=== PATIENT | female | born 1940 ===

== ENCOUNTER 2016-11-14 12:12 | Emergency (ER) | payer MEDICARE, OTHER ==
[2016-11-14 12:17] VITALS: RESP 18
--- NOTE | 2016-11-14 13:09 | RAD ---
PROCEDURE: Right Ankle Radiographs. HISTORY: Right ankle twisted yesterday COMPARISON: None available. FINDINGS: Ankle mortise is disrupted. Displaced comminuted fracture deformity of the distal fibula with intra-articular extension. Displaced acute fracture of the medial malleolus. Suspect posterior fracture of the distal tibia. Degenerative changes. Calcaneal enthesophyte. Soft tissue swelling. No evidence of radiopaque foreign body. IMPRESSION: Ankle mortise disruption with fractures of the medial and lateral malleoli. Question posterior malleolus fracture as well. Soft tissue swelling. No evidence of radiopaque foreign body.
--- NOTE | 2016-11-14 13:13 | C.PDOC ---
History Of Present Illness 76 year old patient, with a past medical history of hypertension and hypercholesterolemia, presents to the ED complaining of right ankle pain. Patient states she tripped and fell on her ankle. Patient denies fever, head injury, loss of consciousness, numbness, or weakness. Time Seen by Provider: 11/14/16 12:25 Chief Complaint (Nursing): Lower Extremity Problem/Injury History Per: Patient History/Exam Limitations: no limitations Onset/Duration Of Symptoms: Hrs (prior to arrival) Current Symptoms Are (Timing): Still Present Severity: Moderate Pain Scale Rating Of: 4 Recent travel outside of the [place]: No - Ankle/Foot Description Of Injury: Fell Currently Unable To: Bear Weight Past Medical History Reviewed: Historical Data, Nursing Documentation, Vital Signs Vital Signs: Last Vital Signs Temp 97.9 F 11/14/16 12:15 Pulse 79 11/14/16 12:15 Resp 18 11/14/16 12:15 BP 136/75 11/14/16 12:15 Pulse Ox 96 11/14/16 13:37 - Medical History PMH: HTN, Hypercholesterolemia Family History: States: Unknown Family Hx - Social History Hx Alcohol Use: Yes Hx Substance Use: No - Immunization History Hx Tetanus Toxoid Vaccination: No Hx Influenza Vaccination: Yes Hx Pneumococcal Vaccination: No Review Of Systems Except As Marked, All Systems Reviewed And Found Negative. Constitutional: Negative for: Fever Musculoskeletal: Positive for: Other (right ankle pain) Neurological: Negative for: Weakness, Numbness Physical Exam - Physical Exam Appears: Non-toxic, No Acute Distress Skin: Warm, Dry Head: Atraumatic, Normacephalic Neck: Normal ROM, Supple Chest: Symmetrical Cardiovascular: Rhythm Regular Respiratory: No Accessory Muscle Use Back: Normal Inspection Extremity: Normal ROM, No Calf Tenderness, Capillary Refill (<2 seconds), Swelling, Other (right lower leg swelling and ecchymosis; right thigh ecchymosis ) Pulses: Left Dorsalis Pedis: Normal, Right Dorsalis Pedis: Normal Neurological/Psych: Oriented x3, Normal Speech, Normal Cognition, Normal Motor, Normal Sensation ED Course And Treatment O2 Sat by Pulse Oximetry: 96 (RA) Pulse Ox Interpretation: Normal - Other Rad right ankle X-Ray: Read By Radiologist (Opal Sanchez) Interpretation: FINDINGS: Ankle mortise is disrupted. Displaced comminuted fracture deformity of the distal fibula with intra-articular extension. Displaced acute fracture of the medial malleolus. Suspect posterior fracture of the distal tibia. Degenerative changes. Calcaneal enthesophyte. Soft tissue swelling. No evidence of radiopaque foreign body. IMPRESSION: Ankle mortise disruption with fractures of the medial and lateral malleoli. Question posterior malleolus fracture as well. Soft tissue swelling. No evidence of radiopaque foreign body. Progress Note: Plan: -Motrin. -Right ankle x-ray Reevaluation Time: 13:15 Reassessment Condition: Improved (d/w dr. Granados, Reena- Ortho Sanitation Superintendent- ok to apply splint and crutch walking, call in AM for appt) Disposition Doctor Will See Patient In The: Office Counseled Patient/Family Regarding: Studies Performed, Diagnosis - Disposition Disposition: HOME/ ROUTINE Disposition Time: 14:10 Condition: GOOD - Clinical Impression Clinical Impression: Closed bimalleolar fracture - Scribe Statement The provider has reviewed the documentation as recorded by the Pily Renner Provider Attestation: All medical record entries made by the Pily were at my direction and personally dictated by me. I have reviewed the chart and agree that the record accurately reflects my personal performance of the history, physical exam, medical decision making, and the department course for this patient. I have also personally directed, reviewed, and agree with the discharge instructions and disposition.
[2016-11-14 14:46] VITALS: BP 129/78; PULSE 78; TEMP 98.2; O2SAT 98
== END 2016-11-14 14:50 | disposition home or self-care (01) ==
LOC: C.ER 12:12 → SUPCPDRO 12:12 → C.ER 14:50
DX: S82.841A Displaced bimalleolar fracture of right lower leg, initial encounter for closed fracture (principal); W01.0XXA Fall on same level from slipping, tripping and stumbling without subsequent striking against object, initial encounter

== ENCOUNTER 2017-01-26 09:42 | Inpatient (IN) | payer MEDICARE, OTHER ==
[2017-01-26 09:43] VITALS: BMI 24.1
[2017-01-26] MEDS ORDERED: Sodium Chloride 0.9% 1,000 ML IV ONE (11:01)
[2017-01-26] MEDS ORDERED: Piperacillin/Tazobact 3.375 gm 100 ML IV STA (11:02)
[2017-01-26] MEDS ORDERED: Sodium Chloride 0.9% 1,000 ML ONE (11:08)
[2017-01-26] MEDS ORDERED: Piperacillin/Tazobact 3.375 gm 0 ML IVPB ONE (11:08)
--- NOTE | 2017-01-26 11:12 | C.PDOC ---
Time Seen by Provider: 01/26/17 10:46 Chief Complaint (Nursing): Abnormal Skin Integrity History Per: Patient History/Exam Limitations: no limitations Onset/Duration Of Symptoms: Days Current Symptoms Are (Timing): Still Present Location Of Injury: Right: Ankle Past Medical History Reviewed: Historical Data, Nursing Documentation, Vital Signs Vital Signs: Last Vital Signs Temp 97.9 F 01/26/17 09:54 Pulse 66 01/26/17 09:54 Resp 18 01/26/17 09:54 BP 147/70 01/26/17 09:54 Pulse Ox 100 01/26/17 11:15 - Medical History PMH: Arthritis, HTN, Hypercholesterolemia Denies: Chronic Kidney Disease - [facility] Procedures INTRODUCE LOCAL ANESTH IN PERIPH NRV, PLEXI, PERC (12/01/16) INTRODUCTION OF SERUM/TOX/VACCINE INTO MUSCLE, PERC APPROACH (12/01/16) REPOSITION RIGHT FIBULA WITH INT FIX, OPEN APPROACH (12/01/16) REPOSITION RIGHT TIBIA WITH INT FIX, OPEN APPROACH (12/01/16) Family History: States: Unknown Family Hx - Social History Hx Alcohol Use: Yes Hx Substance Use: No - Immunization History Hx Tetanus Toxoid Vaccination: No Hx Influenza Vaccination: Yes Hx Pneumococcal Vaccination: No Review Of Systems Except As Marked, All Systems Reviewed And Found Negative. Constitutional: Negative for: Fever, Chills Gastrointestinal: Negative for: Nausea, Vomiting, Diarrhea Musculoskeletal: Positive for: Foot Pain Neurological: Negative for: Numbness Physical Exam - Physical Exam Appears: Non-toxic, No Acute Distress Skin: Normal Color, Warm Head: Atraumatic, Normacephalic Extremity: Capillary Refill (<2 seconds), No Deformity, Swelling (Lower extremities), Other (1cm ulcer on right ankle with purulent and drainage) Pulses: Left Dorsalis Pedis: Normal, Right Dorsalis Pedis: Normal Neurological/Psych: Oriented x3, Normal Motor, Normal Sensation, Normal Reflexes ED Course And Treatment O2 Sat by Pulse Oximetry: 100 (RA) Pulse Ox Interpretation: Normal Medical Decision Making Medical Decision Making: Plan: Labs, Antibiotics and Medication Patient will be on observation for possible admission - PA / FISH GRADER / Resident Statement MD/DO has reviewed & agrees with the documentation as recorded. - Scribe Statement The provider has reviewed the documentation as recorded by the Zachibpretty Allison All medical record entries made by the Scribe were at my direction and personally dictated by me. I have reviewed the chart and agree that the record accurately reflects my personal performance of the history, physical exam, medical decision making, and the department course for this patient. I have also personally directed, reviewed, and agree with the discharge instructions and disposition.
[2017-01-26 11:24] LABS: BASO # 0.1 K/uL (0.0-0.2); BASO % 0.6 % (0.0-2.0); EOS # 0.2 K/uL (0.0-0.7); EOS % 1.9 % (0.0-4.0); HEMOGLOBIN 12.2 g/dL (11.0-16.0); LYMPH # 1.8 K/uL (1.0-4.3); LYMPH % 19.4 % (20.0-40.0); MEAN CELL VOLUME 87.3 fL (81.0-99.0); MEAN CORPUSCULAR HEMOGLOBIN 28.2 pg (27.0-31.0); MEAN CORPUSCULAR HGB CONC 32.3 g/dL (33.0-37.0); MEAN PLATELET VOLUME 8.5 fL (7.2-11.7); MONO # 0.6 K/uL (0.0-0.8); MONO % 6.8 % (0.0-10.0); NEUT # 6.5 K/uL (1.8-7.0); NEUT % 71.3 % (50.0-75.0); RBC 4.32 Mil/uL (3.80-5.20); RED CELL DISTRIBUTION WIDTH 14.6 % (11.5-14.5); WHITE BLOOD COUNT 9.1 K/uL (4.8-10.8)
--- NOTE | 2017-01-26 11:25 | C.PDOC ---
History Of Present Illness 77 y/o female with Hx of DM presents to ED with complaints of an infected ulcer on right medial ankle. Patient states she had an ankle surgery on 11/30/16 at [facility]. Patient denies numbness, fever, chills, n/v/d or any other complaints at this time Time Seen by Provider: 01/26/17 10:46 Chief Complaint (Nursing): Abnormal Skin Integrity History Per: Patient History/Exam Limitations: no limitations Onset/Duration Of Symptoms: Days Location Of Injury: Right: Ankle Past Medical History Reviewed: Historical Data, Nursing Documentation, Vital Signs Vital Signs: Last Vital Signs Temp 97.9 F 01/26/17 09:54 Pulse 66 01/26/17 09:54 Resp 18 01/26/17 09:54 BP 147/70 01/26/17 09:54 Pulse Ox 100 01/26/17 11:29 - Medical History PMH: Arthritis, HTN, Hypercholesterolemia - [facility] Procedures INTRODUCE LOCAL ANESTH IN PERIPH NRV, PLEXI, PERC (12/01/16) INTRODUCTION OF SERUM/TOX/VACCINE INTO MUSCLE, PERC APPROACH (12/01/16) REPOSITION RIGHT FIBULA WITH INT FIX, OPEN APPROACH (12/01/16) REPOSITION RIGHT TIBIA WITH INT FIX, OPEN APPROACH (12/01/16) Family History: States: Unknown Family Hx - Social History Hx Alcohol Use: Yes Hx Substance Use: No - Immunization History Hx Tetanus Toxoid Vaccination: No Hx Influenza Vaccination: Yes Hx Pneumococcal Vaccination: No Review Of Systems Except As Marked, All Systems Reviewed And Found Negative. Constitutional: Negative for: Fever, Chills Gastrointestinal: Negative for: Nausea, Vomiting, Diarrhea Musculoskeletal: Positive for: Foot Pain Skin: Negative for: Rash Neurological: Negative for: Numbness Physical Exam - Physical Exam Appears: Non-toxic, No Acute Distress Skin: Normal Color, Warm Head: Atraumatic, Normacephalic Extremity: Capillary Refill (<2 seconds), No Deformity, Swelling (Lower extrimities b/l), Other (1cm circular ulcer with purulent and drainage on right ankle) Pulses: Left Dorsalis Pedis: Normal, Right Dorsalis Pedis: Normal Neurological/Psych: Oriented x3, Normal Motor, Normal Sensation, Normal Reflexes ED Course And Treatment - Laboratory Results Result Diagrams: 01/26/17 11:18 01/26/17 11:18 O2 Sat by Pulse Oximetry: 100 (RA) Pulse Ox Interpretation: Normal Progress Note: Treated with IVF NSS. Zosyn and Vanco Reassessment Condition: Unchanged - Physician Consult Information Physician Contacted: Celso Bonilla Outcome Of Conversation: admit Medical Decision Making Medical Decision Making: Plan: Labs, Antibiotics and Medications Patient will be on observation for possible admission Disposition Discussed With Dr.: Celso Bonilla Doctor Will See Patient In The: Hospital - Disposition Disposition: HOSPITALIZED Disposition Time: 13:15 Condition: STABLE - POA Present On Arrival: None - Clinical Impression Clinical Impression: Cellulitis, Ankle fracture, bimalleolar, closed - PA / SOLE CONFORMING MACHINE OPERATOR / Resident Statement MD/DO has reviewed & agrees with the documentation as recorded. - Scribe Statement The provider has reviewed the documentation as recorded by the Scribpretty Allison All medical record entries made by the Zachibpretty were at my direction and personally dictated by me. I have reviewed the chart and agree that the record accurately reflects my personal performance of the history, physical exam, medical decision making, and the department course for this patient. I have also personally directed, reviewed, and agree with the discharge instructions and disposition. Decision To Admit - Pt Status Changed To: Hospital Disposition Of: Inpatient - Admit Certification Admit to Inpatient:: After my assessment, the patient will require hospitalization for at least two midnights. This is because of the severity of symptoms shown, intensity of services needed, and/or the medical risk in this patient being treated as an outpatient. - InPatient: Physician Admission Certification: I certify that this patient requires 2 or more midnights of care for the following reason:: cellulitis. DM. S/P ORIF ankle fracture - . Bed Request Type: Regular Admitting Physician: Celso Bonilla Patient Diagnosis: Cellulitis
[2017-01-26 11:34] LABS: ALBUMIN 3.7 g/dL (3.5-5.0)
[2017-01-26 11:36] LABS: GFR AFRICAN-AMERICAN > 60; GFR NON-AFRICAN AMERICAN > 60
[2017-01-26 11:37] LABS: ALB/GLOB RATIO 1.1 (1.0-2.1); ALT/SGPT 21 U/L (9-52); AST/SGOT 17 U/L (14-36); BLOOD UREA NITROGEN 19 mg/dL (7-17); CALCIUM 9.1 mg/dl (8.6-10.4)
--- NOTE | 2017-01-26 12:57 | RAD ---
PROCEDURE: Right Ankle Radiographs. HISTORY: pain COMPARISON: 12/23/2016 FINDINGS: BONES: Status post ORIF distal fibular fracture and medial malleolar fracture. No new fracture. Hardware appears intact. No periosteal reaction or osseous erosion appreciated deep to the medial cutaneous ulcer. JOINTS: Normal. No osteoarthritis. Ankle mortise maintained. Talar dome intact SOFT TISSUES: Medial cutaneous ulcer identified at the level of the medial malleolus. OTHER FINDINGS: None. IMPRESSION: Medial cutaneous ulcer. ORIF distal fibular fracture and medial malleolar fracture. No plain radiographic evidence of osteomyelitis.
[2017-01-26] MEDS ORDERED: Vancomycin 1 GM 1 GM/250 ML BAG IV STA (13:49)
[2017-01-26 13:52] LABS: SQUAMOUS EPITHIAL 29 /hpf (0-5); URINE BILIRUBIN NEGATIVE (NEGATIVE); URINE BLOOD 1+ (NEGATIVE); URINE CLARITY Hazy (Clear); URINE COLOR Yellow (YELLOW); URINE GLUCOSE (UA) NORMAL (Normal); URINE LEUKOCYTE ESTERASE 3+ Leu/uL (Negative); URINE NITRATE NEGATIVE (NEGATIVE); URINE PROTEIN NEGATIVE (NEGATIVE); URINE UROBILINOGEN NORMAL mg/dL (0.2-1.0)
[2017-01-26] MEDS ORDERED: Vancomycin 1 GM 1 GM/250 ML BAG IVPB ONE (13:58)
[2017-01-26] MEDS ORDERED: Oxycodone/Acetaminophen 5/325 mg Tab PO PRN (16:08)
[2017-01-26] MEDS: (Novolog) Insulin Aspart, Recombinant 100 u/ml 10 ml vial SC SCH ×2 (16:27→21:46)
--- NOTE | 2017-01-26 16:33 | CP.PCM.CON ---
History of Present Illness - History of Present Illness History of Present Illness: INFECTIOUS DISEASE CONSULT; HPI: 78-year-old female with history of diabetes mellitus, hypertension, hypercholesterolemia, arthritis who is admitted via the ER with complaints off and infected also draining purulent drainage on the right medial ankle. Patient states she had ankle surgery on November 30, 2016 at [facility]. She states she fell and had a fracture for which she underwent open reduction internal fixation. The wound has been draining for more than a week. As per patient she is taking some antibiotic but does not remember the name. Patient states it has not been working and her ankle looks worse with swelling and redness increasing. Patient denies any fever or chills, nausea vomiting. Patient also denies any abdominal pain, diarrhea or constipation. Infectious disease consultation requested by DR ANTONIO HSIEH FOR INFECTED POSTOPERATIVE WOUND RIGHT ANKLE WITH CELLULITIS AND DRAINING ULCER. ALLERGY; NKA PMH: Arthritis, HTN, Hypercholesterolemia - [facility] Procedures INTRODUCE LOCAL ANESTH IN PERIPH NRV, PLEXI, PERC (12/01/16) INTRODUCTION OF SERUM/TOX/VACCINE INTO MUSCLE, PERC APPROACH (12/01/16) REPOSITION RIGHT FIBULA WITH INT FIX, OPEN APPROACH (12/01/16) REPOSITION RIGHT TIBIA WITH INT FIX, OPEN APPROACH (12/01/16) Family History: States: Unknown Family Hx - Social History Hx Alcohol Use: USED TO DRINK ALCOHOL BUT QUIT SEVERAL YEARS AGO. Hx Substance Use: No SMOKING; QUIT SEVERAL YEARS AGO. - Immunization History Hx Tetanus Toxoid Vaccination: No Hx Influenza Vaccination: Yes Hx Pneumococcal Vaccination: No Review of Systems - Constitutional Constitutional: absent: Chills, Fever - EENT Eyes: absent: Change in Vision, Floaters, Other Ears: absent: Ear Pain, Dizziness Nose/Mouth/Throat: absent: Odynophagia, Sore Throat - Cardiovascular Cardiovascular: absent: Chest Pain, Dyspnea - Respiratory Respiratory: absent: Cough, Dyspnea, Hemoptysis, Wheezing - Gastrointestinal Gastrointestinal: Vomiting. absent: Abdominal Pain, Constipation, Diarrhea, Nausea - Genitourinary Genitourinary: absent: Dysuria, Freq UTI - Musculoskeletal Musculoskeletal: Arthralgias - Neurological Neurological: absent: Dizziness - Hematologic/Lymphatic Hematologic: As Per HPI. absent: Lymphadenopathy Past Patient History - Infectious Disease Hx of Infectious Diseases: None - Past Medical History & Family History Past Medical History?: Yes - Past Social History Smoking Status: Never Smoked - CARDIAC Hx Hypercholesterolemia: Yes Hx Hypertension: Yes - PULMONARY Hx Respiratory Disorders: No - NEUROLOGICAL Hx Neurological Disorder: No - HEENT Hx HEENT Problems: No - RENAL Hx Chronic Kidney Disease: No - ENDOCRINE/METABOLIC Hx Endocrine Disorders: No - HEMATOLOGICAL/ONCOLOGICAL Hx Blood Disorders: Yes Hx Cancer: Yes (BREAST) - INTEGUMENTARY Hx Dermatological Problems: No - MUSCULOSKELETAL/RHEUMATOLOGICAL Hx Arthritis: Yes - GASTROINTESTINAL Hx Gastrointestinal Disorders: No - GENITOURINARY/GYNECOLOGICAL Hx Genitourinary Disorders: No - PSYCHIATRIC Hx Substance Use: No - SURGICAL HISTORY Hx Surgeries: Yes Hx Section: Yes Hx Mastectomy: Yes (LEFT) - ANESTHESIA Hx Anesthesia: No Meds Allergies/Adverse Reactions: Allergies Allergy/AdvReac Type Severity Reaction Status Date / Time No Known Allergies Allergy Verified 11/14/16 12:17 - Medications Medications: Current Medications Amlodipine Besylate (Norvasc) 5 mg PO DAILY [facility] Celecoxib (Celebrex) 200 mg PO DAILY [facility] Docusate Sodium (Colace) 100 mg PO BID [facility] Donepezil HCl (Aricept) 5 mg PO HS [facility] Enoxaparin Sodium (Lovenox) 40 mg SC DAILY [facility] Famotidine (Pepcid) 40 mg PO DAILY [facility] Vancomycin HCl 1 gm/ Sodium (Chloride) 250 mls @ 166.7 mls/hr IVPB Q24H [facility] Insulin Aspart (Novolog) 0 unit SC ACHS [facility] PRN Reason: Protocol Last Admin: 01/26/17 16:27 Dose: Not Given Metformin HCl (Glucophage) 500 mg PO BID [facility] Oxycodone/Acetaminophen (Percocet 5/325 Mg Tab) 1 tab PO Q6 PRN PRN Reason: Pain, moderate (4-7) Stop: 01/29/17 16:09 Rosuvastatin Calcium (Crestor) 20 mg PO HS [facility] Sitagliptin Phosphate (Januvia) 100 mg PO DAILY [facility] Physical Exam - Constitutional Appears: No Acute Distress - Head Exam Head Exam: NORMAL INSPECTION - Eye Exam Eye Exam: EOMI, PERRL. absent: Scleral icterus - ENT Exam ENT Exam: Normal Oropharynx - Neck Exam Neck exam: Positive for: Normal Inspection - Respiratory Exam Respiratory Exam: Clear to Auscultation Bilateral, NORMAL BREATHING PATTERN - Cardiovascular Exam Cardiovascular Exam: REGULAR RHYTHM, +S1, +S2. absent: Systolic Murmur - GI/Abdominal Exam GI & Abdominal Exam: Normal Bowel Sounds, Soft. absent: Organomegaly, Tenderness - Extremities Exam Extremities exam: Positive for: pedal edema, tenderness, pedal pulses present ( RIGHT ANKLE CELLULITIS WITH AN ULCER 1 CM WITH A PURULENT DRAINAGE AT THE BASE OF THE ULCER ON THE MEDIAL ASPECT OF THE RIGHT ANKLE. fOOT APPEARS TO BE WARM AND TENDER TO TOUCH). Negative for: calf tenderness - Back Exam Back exam: absent: CVA tenderness (L) (B/L NEPHROSTOMY TUBES IN PLACE. ALSO DRAINAGE NOTED AT THEEXIT SITES OF THE NEPHROSTOMY TUBES.) - Neurological Exam Neurological exam: Alert, Oriented x3 - Psychiatric Exam Psychiatric exam: Normal Mood - Skin Skin Exam: Normal Color, Warm Results - Vital Signs Recent Vital Signs: Last Vital Signs Temp 98.9 F 01/26/17 13:50 Pulse 65 01/26/17 13:50 Resp 14 01/26/17 13:50 BP 127/69 01/26/17 13:50 Pulse Ox 96 01/26/17 13:50 - Labs Result Diagrams: 01/26/17 11:18 01/26/17 11:18 Labs: Laboratory Results - last 24 hr 01/26/17 01/26/17 13:18 16:26 POC Glucose (mg/dL) 127 H Urine Color Yellow Urine Clarity Hazy Urine pH 5.0 Ur Specific [place] 1.012 Urine Protein Negative Urine Glucose (UA) Normal Urine Ketones Negative Urine Blood 1+ H Urine Nitrate Negative Urine Bilirubin Negative Urine Urobilinogen Normal Ur Leukocyte Esterase 3+ H Urine WBC (Auto) 82 H Urine RBC (Auto) 4 H Ur Squamous Epith Cells 29 H - Imaging and Cardiology X-RAY RIGHT ANKLE Status: Report reviewed by me (medial cutaneous ulcer. ORIF distal fibular fracture and medial malleolus fracture. Negative for osteomyelitis.) Assessment & Plan (1) Cellulitis Status: Acute (2) Ankle fracture, bimalleolar, closed Status: Acute (3) Diabetes mellitus type 2 in nonobese Status: Acute (4) Hypertension Status: Acute - Assessment and Plan (Free Text) Plan: PLAN; PANCULTURES WOUND CULTURES RIGHT ANKLE ULCER. ESR. CRP. CONTINUE iv ZOSYN 3.375 EVERY 8 HOURLY 01/26/17. CONTINUE iv VANCOMYCIN 1 G EVERY 24 HOURLY. 01/26/17. VANCO TROUGH LEVEL ON THE FOURTH DOSE TO MAINTAIN LEVELS BETWEEN 10 AND 20. MRSA SCREEN. MONITOR RENAL FUNCTION CLOSELY. ORTHO EVALUATION. LOCAL WOUND CARE. CASE DISCUSSED WITH THE STAFF WILL FOLLOW PATIENT ALONG WITH YOU.
[2017-01-26] MEDS ORDERED: Piperacillin/Tazobact 3.375 gm 100 ML IVPB ONE (19:36)
[2017-01-26] MEDS: Piperacill/Tazo 3.375gm in Dex 3.375 GM/50 ML BAG IVPB SCH (19:40)
--- NOTE | 2017-01-26 21:25 | CP.PCM.HP ---
History of Present Illness - History of Present Illness History of Present Illness: Cheif complain: right ankle pain, post op wound infection HPI: 78-year-old female with history of diabetes mellitus, hypertension, hypercholesterolemia, arthritis who is admitted via the ER with complaints off and infected also draining purulent drainage on the right medial ankle. Patient states she had ankle surgery on November 30, 2016 at [facility]. She states she fell and had a fracture for which she underwent open reduction internal fixation. The wound has been draining for more than a week. As per patient she is taking some antibiotic but does not remember the name. Patient states it has not been working and her ankle looks worse with swelling and redness increasing. Patient denies any fever or chills, nausea vomiting. Patient also denies any abdominal pain, diarrhea or constipation. Present on Admission - Present on Admission Any Indicators Present on Admission: Yes History of DVT/PE: No History of Uncontrolled Diabetes: No Review of Systems - Review of Systems Systems not reviewed;Unavailable: Acuity of Condition - Constitutional Constitutional: Fatigue, Lethargy - EENT Eyes: absent: As Per HPI, Blind Spots, Blurred Vision, Change in Vision, Decreased Night Vision, Diplopia, Discharge, Dry Eye, Exophthalmos, Floaters, Irritation, Itchy Eyes, Loss of Peripheral Vision, Pain, Photophobia, Requires Corrective Lenses, Sees Flashes, Spots in Vision, Tunnel Vision, Other Visual Disturbances, Loss of Vision, Other Ears: absent: As Per HPI, Decreased Hearing, Ear Discharge, Ear Pain, Tinnitus, Abnormal Hearing, Disequilibrium, Dizziness, Other Nose/Mouth/Throat: absent: As Per HPI, Epistaxis, Nasal Congestion, Nasal Discharge, Nasal Obstruction, Nasal Trauma, Nose Pain, Post Nasal Drip, Sinus Pain, Sinus Pressure, Bleeding Gums, Change in Voice, Dental Pain, Dry Mouth, Dysphagia, Halitosis, Hoarsness, Lip Swelling, Mouth Lesions, Mouth Pain, Odynophagia, Sore Throat, Throat Swelling, Tongue Swelling, Facial Pain, Neck Pain, Neck Mass, Other - Cardiovascular Cardiovascular: absent: As Per HPI, Acrocyanosis, Chest Pain, Chest Pain at Rest , Chest Pain with Activity, Claudication, Diaphoresis, Dyspnea, Dyspnea on Exertion, Edema, Irregular Heart Rhythm, Pain Radiating to Arm/Neck/Jaw, Leg Edema, Leg Ulcers, Lightheadedness, Orthopnea, Palpitations, Paroxysmal Nocturnal Dyspnea, Pedal Edema, Radiating Pain, Rapid Heart Rate, Slow Heart Rate, Syncope, Other - Respiratory Respiratory: absent: As Per HPI, Cough, Dyspnea, Hemoptysis, Dyspnea on Exertion , Wheezing, Snoring, Stridor, Pain on Inspiration, Chest Congestion, Excessive Mucous Production, Change in Mucous Color, Pain with Coughing, Other - Gastrointestinal Gastrointestinal: absent: As Per HPI, Abdominal Pain, Belching, Bloating, Change in Bowel Habits, Change in Stool Character, Coffee Ground Emesis, Constipation, Cramping, Diarrhea, Dyspepsia, Dysphagia, Early Satiety, Excessive Flatus, Fecal Incontinence, Heartburn, Hematemesis, Hematochezia, Loose Stools, Melena, Nausea, Odynophagia, Temesmus, Vomiting, Other - Genitourinary Genitourinary: absent: As Per HPI, Change in Urinary Stream, Difficulty Urinating, Dysuria, Flank Pain, Hematuria, Pyuria, Nocturia, Urinary Incontinence, Urinary Frequency, Urinary Hesitance, Urinary Urgency, Voiding Freq/Small Amts, Freq UTI, Hx Renal/Bladder Calculi, Hx /Renal Surgery, Bladder Distension, Other - Musculoskeletal Musculoskeletal: Joint Swelling, Muscle Weakness, Myalgias Past Patient History - Infectious Disease Hx of Infectious Diseases: None - Past Medical History & Family History Past Medical History?: Yes - Past Social History Smoking Status: Never Smoked - CARDIAC Hx Hypercholesterolemia: Yes Hx Hypertension: Yes - PULMONARY Hx Respiratory Disorders: No - NEUROLOGICAL Hx Neurological Disorder: No - HEENT Hx HEENT Problems: No - RENAL Hx Chronic Kidney Disease: No - ENDOCRINE/METABOLIC Hx Endocrine Disorders: No - HEMATOLOGICAL/ONCOLOGICAL Hx Blood Disorders: Yes Hx Cancer: Yes (BREAST) - INTEGUMENTARY Hx Dermatological Problems: No - MUSCULOSKELETAL/RHEUMATOLOGICAL Hx Arthritis: Yes - GASTROINTESTINAL Hx Gastrointestinal Disorders: No - GENITOURINARY/GYNECOLOGICAL Hx Genitourinary Disorders: No - PSYCHIATRIC Hx Substance Use: No - SURGICAL HISTORY Hx Surgeries: Yes Hx Section: Yes Hx Mastectomy: Yes (LEFT) - ANESTHESIA Hx Anesthesia: No Meds Allergies/Adverse Reactions: Allergies Allergy/AdvReac Type Severity Reaction Status Date / Time No Known Allergies Allergy Verified 11/14/16 12:17 Physical Exam - Constitutional Appears: No Acute Distress - Head Exam Head Exam: ATRAUMATIC, NORMAL INSPECTION, NORMOCEPHALIC - Eye Exam Eye Exam: EOMI, Normal appearance, PERRL Pupil Exam: NORMAL ACCOMODATION, PERRL - ENT Exam ENT Exam: Mucous Membranes Moist, Normal Exam - Neck Exam Neck exam: Positive for: Normal Inspection - Respiratory Exam Respiratory Exam: Clear to Auscultation Bilateral, NORMAL BREATHING PATTERN - Cardiovascular Exam Cardiovascular Exam: REGULAR RHYTHM - GI/Abdominal Exam GI & Abdominal Exam: Normal Bowel Sounds, Soft. absent: Tenderness - Rectal Exam Rectal Exam: Deferred - Extremities Exam Extremities exam: Positive for: pedal edema, pedal pulses present Additional comments: RIGHT ANKLE CELLULITIS WITH AN ULCER 1 CM WITH A PURULENT DRAINAGE AT THE BASE OF THE ULCER ON THE MEDIAL ASPECT OF THE RIGHT ANKLE. fOOT APPEARS TO BE WARM AND TENDER TO TOUCH). Negative for: calf tenderness - - Back Exam Additional comments: absent: CVA tenderness (L) (B/L NEPHROSTOMY TUBES IN PLACE. ALSO DRAINAGE NOTED AT THEEXIT SITES OF THE NEPHROSTOMY TUBES.) - Neurological Exam Neurological exam: Alert, CN II-XII Intact, Normal Gait, Oriented x3, Reflexes Normal - Psychiatric Exam Psychiatric exam: Normal Affect, Normal Mood Results - Vital Signs Recent Vital Signs: Last Vital Signs Temp 98.3 F 01/26/17 21:06 Pulse 65 01/26/17 21:06 Resp 18 01/26/17 21:06 BP 127/67 01/26/17 21:06 Pulse Ox 95 01/26/17 21:06 - Labs Result Diagrams: 01/26/17 11:18 01/26/17 11:18 Labs: Laboratory Results - last 24 hr 01/26/17 01/26/17 13:18 16:26 POC Glucose (mg/dL) 127 H Urine Color Yellow Urine Clarity Hazy Urine pH 5.0 Ur Specific [place] 1.012 Urine Protein Negative Urine Glucose (UA) Normal Urine Ketones Negative Urine Blood 1+ H Urine Nitrate Negative Urine Bilirubin Negative Urine Urobilinogen Normal Ur Leukocyte Esterase 3+ H Urine WBC (Auto) 82 H Urine RBC (Auto) 4 H Ur Squamous Epith Cells 29 H Assessment & Plan (1) Cellulitis Status: Acute (2) Diabetes mellitus type 2 in nonobese Status: Acute (3) Hypertension Status: Acute
[2017-01-27 01:47] VITALS: RESP 20
[2017-01-27] MEDS: Piperacill/Tazo 3.375gm in Dex 3.375 GM/50 ML BAG IVPB SCH ×3 (03:29→18:44)
[2017-01-27] MEDS: (Novolog) Insulin Aspart, Recombinant 100 u/ml 10 ml vial SC SCH ×4 (07:30→21:31)
--- NOTE | 2017-01-27 08:21 | CP.PCM.CON ---
History of Present Illness - History of Present Illness History of Present Illness: Orthopedic consultation requested Dr. Granados for right ankle pain 77F 7 weeks s/p right ankle ORIF for bimalleolar fracture. She says she fell about a week ago, and has been having increased pain in her right ankle and redness. She has a boot at home but says she was told not to put any pressure on her ankle, but says she has been walking without the boot. She denies CP/SOB/ dizziness. Review of Systems - Review of Systems All systems: reviewed and no additional remarkable complaints except - Musculoskeletal Musculoskeletal: As Per HPI Past Patient History - Infectious Disease Hx of Infectious Diseases: None - Past Medical History & Family History Past Medical History?: Yes - Past Social History Smoking Status: Never Smoked - CARDIAC Hx Hypercholesterolemia: Yes Hx Hypertension: Yes - PULMONARY Hx Respiratory Disorders: No - NEUROLOGICAL Hx Neurological Disorder: No - HEENT Hx HEENT Problems: No - RENAL Hx Chronic Kidney Disease: No - ENDOCRINE/METABOLIC Hx Endocrine Disorders: No - HEMATOLOGICAL/ONCOLOGICAL Hx Blood Disorders: Yes Hx Cancer: Yes (BREAST) - INTEGUMENTARY Hx Dermatological Problems: No - MUSCULOSKELETAL/RHEUMATOLOGICAL Hx Arthritis: Yes - GASTROINTESTINAL Hx Gastrointestinal Disorders: No - GENITOURINARY/GYNECOLOGICAL Hx Genitourinary Disorders: No - PSYCHIATRIC Hx Substance Use: No - SURGICAL HISTORY Hx Surgeries: Yes Hx Section: Yes Hx Mastectomy: Yes (LEFT) - ANESTHESIA Hx Anesthesia: No Meds Allergies/Adverse Reactions: Allergies Allergy/AdvReac Type Severity Reaction Status Date / Time No Known Allergies Allergy Verified 11/14/16 12:17 - Medications Medications: Current Medications Amlodipine Besylate (Norvasc) 5 mg PO DAILY [facility] Celecoxib (Celebrex) 200 mg PO DAILY [facility] Docusate Sodium (Colace) 100 mg PO BID [facility] Last Admin: 01/26/17 18:44 Dose: 100 mg Donepezil HCl (Aricept) 5 mg PO HS [facility] Last Admin: 01/26/17 21:48 Dose: 5 mg Enoxaparin Sodium (Lovenox) 40 mg SC DAILY [facility] Famotidine (Pepcid) 40 mg PO DAILY [facility] Vancomycin HCl 1 gm/ Sodium (Chloride) 250 mls @ 166.7 mls/hr IVPB Q24H [facility] Piperacillin Sod/Tazobactam Sod (Zosyn 3.375 Gm Iv Premix) 3.375 gm in 50 mls @ 100 mls/hr IVPB Q8H [facility] Last Admin: 01/27/17 03:29 Dose: 100 mls/hr Insulin Aspart (Novolog) 0 unit SC ACHS [facility] PRN Reason: Protocol Last Admin: 01/26/17 21:46 Dose: Not Given Metformin HCl (Glucophage) 500 mg PO BID [facility] Last Admin: 01/26/17 18:44 Dose: 500 mg Oxycodone/Acetaminophen (Percocet 5/325 Mg Tab) 1 tab PO Q6 PRN PRN Reason: Pain, moderate (4-7) Stop: 01/29/17 16:09 Rosuvastatin Calcium (Crestor) 20 mg PO HS [facility] Last Admin: 01/26/17 21:48 Dose: 20 mg Sitagliptin Phosphate (Januvia) 100 mg PO DAILY [facility] Physical Exam - Extremities Exam Additional comments: Right ankle: lateral incision well healed. Dry. No erythema. Medial incision site with [id number] ulcer over medial malleolus. Doesn't appear full thickness, no bone or hardware exposed. dry. Erythema extending all around medial malleolus. Noted swelling to same, and swelling to foot. +DP/PT pulses, sensation intact, calves soft NT neg homans. Results - Vital Signs Recent Vital Signs: Last Vital Signs Temp 98.4 F 01/26/17 23:45 Pulse 74 01/26/17 23:45 Resp 20 01/26/17 23:45 BP 150/80 01/26/17 23:45 Pulse Ox 96 01/26/17 23:45 - Labs Result Diagrams: 01/26/17 11:18 01/26/17 11:18 Labs: Laboratory Results - last 24 hr 01/26/17 01/26/17 01/26/17 13:18 16:26 21:29 POC Glucose (mg/dL) 127 H 150 H Urine Color Yellow Urine Clarity Hazy Urine pH 5.0 Ur Specific [place] 1.012 Urine Protein Negative Urine Glucose (UA) Normal Urine Ketones Negative Urine Blood 1+ H Urine Nitrate Negative Urine Bilirubin Negative Urine Urobilinogen Normal Ur Leukocyte Esterase 3+ H Urine WBC (Auto) 82 H Urine RBC (Auto) 4 H Ur Squamous Epith Cells 29 H 01/27/17 06:54 POC Glucose (mg/dL) 134 H Urine Color Urine Clarity Urine pH Ur Specific [place] Urine Protein Urine Glucose (UA) Urine Ketones Urine Blood Urine Nitrate Urine Bilirubin Urine Urobilinogen Ur Leukocyte Esterase Urine WBC (Auto) Urine RBC (Auto) Ur Squamous Epith Cells Assessment & Plan (1) Right ankle swelling Assessment and Plan: 7 weeks s/p ORIF right ankle mode fx -medial ankle wound with cellulitis -wound care to evaluate wound -WBAT with boot, patient to obtain from home -antibiotics -imaging reviewed and discussed with Dr. Brand (partner of Dr. Granados),agrees with above -f/u xrays show interim callus formation to lateral mal fracture, and no change in position of fracture or hardware to medial or lateral malleoli. No evidence on xray of osteomyelitis. -will follow Addendum: case d/w wound care nurse. [facility] for now, plan [facility]. Dr. Brand updated. Status: Acute (2) Wound infection after surgery Assessment and Plan: see above Status: Acute Radiology Interpretation - Reel Cutter Reel Cutter:: Radiologist - Radiology Interpretation #2 Interpretation: atient Name / ID : ANGELIA POZO N / [id number] Exam Date : 01/26/2017 11:05:21 ( Approved ) Study Comment : Sex / Age : F / 77Y Creator : Tony Heller MD Dictator : Tony Heller MD Sport Internship : Computing Architect : Tony Heller MD Approver2 : Report Date : 01/26/2017 12:55:54 My Comment : PROCEDURE: Right Ankle Radiographs. HISTORY: pain COMPARISON: 12/23/2016 FINDINGS: BONES: Status post ORIF distal fibular fracture and medial malleolar fracture. No new fracture. Hardware appears intact. No periosteal reaction or osseous erosion appreciated deep to the medial cutaneous ulcer. JOINTS: Normal. No osteoarthritis. Ankle mortise maintained. Talar dome intact SOFT TISSUES: Medial cutaneous ulcer identified at the level of the medial malleolus. OTHER FINDINGS: None. IMPRESSION: Medial cutaneous ulcer. ORIF distal fibular fracture and medial malleolar fracture. No plain radiographic evidence of osteomyelitis. - Radiology Interpretation #3 Interpretation: Patient Name / ID : ANGELIA POZO N / [id number] Exam Date : 01/26/2017 11:45:06 ( Approved ) Study Comment : Sex / Age : F / 77Y Creator : Department, Vascular C. Dictator : Department, Vascular C. Sport Internship : Computing Architect : Gopi [place] MD Approver2 : Report Date : 01/26/2017 16:13:58 My Comment : PROCEDURE: Right Lower Extremity Venous Duplex Exam. HISTORY: swelling PRIORS: None. TECHNIQUE: Right common femoral, femoral, popliteal and posterior tibial, peroneal and great saphenous veins were evaluated. Flow was assessed with color Doppler, compressibility, assessment of phasic flow and augmentation response. Report prepared by LAUREL Gutierrez FINDINGS: RIGHT: 1. Common Femoral Vein: 1.1. Compressibility - Fully compressible: Thrombus - None: Flow - Phasic: Augmentation -Normal: Reflux - None. 2. Femoral Vein: 2.1. Compressibility - Fully compressible: Thrombus - None: Flow - Phasic: Augmentation -Normal: Reflux - None. 3. Popliteal Vein: 3.1. Compressibility - Fully compressible: Thrombus - None: Flow - Phasic: Augmentation -Normal: Reflux - None. 4. Posterior Tibial Vein: 4.1. Compressibility - Fully compressible: Thrombus - None: Flow - Phasic: Augmentation -Normal: Reflux - None. 5. Peroneal Vein: 5.1. Compressibility - Fully compressible: Thrombus - None: Flow - Phasic: Augmentation -Normal: Reflux - None. 6. Great Saphenous Vein: 6.1. Compressibility - Fully compressible: Thrombus -None: Flow - Phasic: Augmentation - Normal: Reflux - None. OTHER FINDINGS: IMPRESSION: No evidence of deep or superficial vein thrombosis of the right lower extremity with excellent venous flow. Normal valve function noted of the right side. Normal venous flow noted in the left common femoral vein.
[2017-01-27] MEDS: Enoxaparin 40 mg Syringe SC SCH (10:03)
--- NOTE | 2017-01-27 10:16 | CP.PCM.PN ---
Subjective - Date & Time of Evaluation Date of Evaluation: 01/27/17 Time of Evaluation: 08:10 - Subjective Subjective: Pt seen and evalauted, on IV antibiotics vanco, Zosyn, positive left ankle wound infection Objective - Vital Signs/Intake and Output Vital Signs (last 24 hours): Temp Pulse Resp BP Pulse Ox 97.6 F 62 20 157/67 H 96 01/27/17 08:45 01/27/17 08:45 01/27/17 08:45 01/27/17 08:45 01/27/17 08:45 - Medications Medications: Current Medications Amlodipine Besylate (Norvasc) 5 mg PO DAILY [facility] Last Admin: 01/27/17 10:03 Dose: 5 mg Celecoxib (Celebrex) 200 mg PO DAILY [facility] Last Admin: 01/27/17 10:03 Dose: 200 mg Collagenase (Santyl) 0 gm TOP DAILY [facility] Docusate Sodium (Colace) 100 mg PO BID [facility] Last Admin: 01/27/17 10:02 Dose: 100 mg Donepezil HCl (Aricept) 5 mg PO HS [facility] Last Admin: 01/26/17 21:48 Dose: 5 mg Enoxaparin Sodium (Lovenox) 40 mg SC DAILY [facility] Last Admin: 01/27/17 10:03 Dose: 40 mg Famotidine (Pepcid) 40 mg PO DAILY [facility] Last Admin: 01/27/17 10:03 Dose: 40 mg Vancomycin HCl 1 gm/ Sodium (Chloride) 250 mls @ 166.7 mls/hr IVPB Q24H [facility] Piperacillin Sod/Tazobactam Sod (Zosyn 3.375 Gm Iv Premix) 3.375 gm in 50 mls @ 100 mls/hr IVPB Q8H [facility] Last Admin: 01/27/17 03:29 Dose: 100 mls/hr Insulin Aspart (Novolog) 0 unit SC ACHS [facility] PRN Reason: Protocol Last Admin: 01/27/17 07:30 Dose: Not Given Metformin HCl (Glucophage) 500 mg PO BID [facility] Last Admin: 01/26/17 18:44 Dose: 500 mg Oxycodone/Acetaminophen (Percocet 5/325 Mg Tab) 1 tab PO Q6 PRN PRN Reason: Pain, moderate (4-7) Stop: 01/29/17 16:09 Rosuvastatin Calcium (Crestor) 20 mg PO HS [facility] Last Admin: 01/26/17 21:48 Dose: 20 mg Sitagliptin Phosphate (Januvia) 100 mg PO DAILY [facility] - Constitutional Appears: No Acute Distress - Head Exam Head Exam: ATRAUMATIC, NORMAL INSPECTION, NORMOCEPHALIC - Eye Exam Eye Exam: EOMI, Normal appearance, PERRL Pupil Exam: NORMAL ACCOMODATION, PERRL - Respiratory Exam Respiratory Exam: Clear to Ausculation Bilateral, NORMAL BREATHING PATTERN - Cardiovascular Exam Cardiovascular Exam: REGULAR RHYTHM, +S1, +S2. absent: Murmur - GI/Abdominal Exam GI & Abdominal Exam: Soft, Normal Bowel Sounds. absent: Tenderness - Rectal Exam Rectal Exam: Deferred Assessment and Plan (1) Cellulitis Status: Acute (2) Diabetes mellitus type 2 in nonobese Status: Acute (3) Hypertension Status: Acute
--- NOTE | 2017-01-27 10:22 | VASCLAB ---
PROCEDURE: Right Lower Extremity Venous Duplex Exam. HISTORY: swelling PRIORS: None. TECHNIQUE: Right common femoral, femoral, popliteal and posterior tibial, peroneal and great saphenous veins were evaluated. Flow was assessed with color Doppler, compressibility, assessment of phasic flow and augmentation response. Report prepared by LAUREL Gutierrez FINDINGS: RIGHT: 1. Common Femoral Vein: 1.1. Compressibility - Fully compressible: Thrombus - None: Flow - Phasic: Augmentation -Normal: Reflux - None. 2. Femoral Vein: 2.1. Compressibility - Fully compressible: Thrombus - None: Flow - Phasic: Augmentation -Normal: Reflux - None. 3. Popliteal Vein: 3.1. Compressibility - Fully compressible: Thrombus - None: Flow - Phasic: Augmentation -Normal: Reflux - None. 4. Posterior Tibial Vein: 4.1. Compressibility - Fully compressible: Thrombus - None: Flow - Phasic: Augmentation -Normal: Reflux - None. 5. Peroneal Vein: 5.1. Compressibility - Fully compressible: Thrombus - None: Flow - Phasic: Augmentation -Normal: Reflux - None. 6. Great Saphenous Vein: 6.1. Compressibility - Fully compressible: Thrombus -None: Flow - Phasic: Augmentation - Normal: Reflux - None. OTHER FINDINGS: IMPRESSION: No evidence of deep or superficial vein thrombosis of the right lower extremity with excellent venous flow. Normal valve function noted of the right side. Normal venous flow noted in the left common femoral vein.
--- NOTE | 2017-01-27 12:05 | CP.PCM.PN ---
Subjective - Date & Time of Evaluation Date of Evaluation: 01/27/17 Time of Evaluation: 12:05 - Subjective Subjective: CHIEF COMPLAINTS TODAY : afebrile, c/o pain right ankle ulcer site ROS. HEENT : N. Resp : No SOB wheezing, cough Cardio : No CP, PND orthopnea GI : No abd. Pain, n/v FIBERGLASS ROVING WINDER : No headache , focal deficit. Musculoskel : N Ext. : Pedal pulses intact, +VE EDEMA AND CELLULITIS RIGHT ANKLE WITH AN ULCER WITH A YELLOW BASE/DRAINAGE . NO CALF PAIN. Derm : N Psych : N. PE. Pt. is alert awake in no distress. V.S As noted in the chart Head ,ear nose,throat and eyes : Normal. Neck : Supple with normal carotids. Lungs: Clear air entry. Heart : S1 & S2 normal . . No murmur. S4 + Abd : Soft non tender with normal bowel sounds. Neuro : Moves all ext. with no localized deficit. Ext : . Neg. calf tenderness +VE EDEMA AND CELLULITIS RIGHT ANKLE WITH AN ULCER 1CM WITH A YELLOW BASE/DRAINAGE . Derm : No rashes or decubitus ulcer. Radiology/Labs . THREE-PHASE BONE SCAN +ve cellulitis right ankle with no osseous process. wound cultures right ankle -gram-negative torsten ( identification pending ) DUPLEX VENOUS NEGATIVE FOR DVT RIGHT AND LEFT LE Objective - Vital Signs/Intake and Output Vital Signs (last 24 hours): Temp Pulse Resp BP Pulse Ox 97.6 F 62 20 157/67 H 96 01/27/17 08:45 01/27/17 08:45 01/27/17 08:45 01/27/17 08:45 01/27/17 08:45 - Medications Medications: Current Medications Amlodipine Besylate (Norvasc) 5 mg PO DAILY [facility] Last Admin: 01/27/17 10:03 Dose: 5 mg Celecoxib (Celebrex) 200 mg PO DAILY [facility] Last Admin: 01/27/17 10:03 Dose: 200 mg Collagenase (Santyl) 0 gm TOP DAILY [facility] Docusate Sodium (Colace) 100 mg PO BID [facility] Last Admin: 01/27/17 10:02 Dose: 100 mg Donepezil HCl (Aricept) 5 mg PO HS [facility] Last Admin: 01/26/17 21:48 Dose: 5 mg Enoxaparin Sodium (Lovenox) 40 mg SC DAILY [facility] Last Admin: 01/27/17 10:03 Dose: 40 mg Famotidine (Pepcid) 40 mg PO DAILY [facility] Last Admin: 01/27/17 10:03 Dose: 40 mg Vancomycin HCl 1 gm/ Sodium (Chloride) 250 mls @ 166.7 mls/hr IVPB Q24H [facility] Piperacillin Sod/Tazobactam Sod (Zosyn 3.375 Gm Iv Premix) 3.375 gm in 50 mls @ 100 mls/hr IVPB Q8H [facility] Last Admin: 01/27/17 03:29 Dose: 100 mls/hr Insulin Aspart (Novolog) 0 unit SC ACHS [facility] PRN Reason: Protocol Last Admin: 01/27/17 07:30 Dose: Not Given Metformin HCl (Glucophage) 500 mg PO BID [facility] Last Admin: 01/26/17 18:44 Dose: 500 mg Oxycodone/Acetaminophen (Percocet 5/325 Mg Tab) 1 tab PO Q6 PRN PRN Reason: Pain, moderate (4-7) Stop: 01/29/17 16:09 Rosuvastatin Calcium (Crestor) 20 mg PO HS [facility] Last Admin: 01/26/17 21:48 Dose: 20 mg Sitagliptin Phosphate (Januvia) 100 mg PO DAILY [facility] Assessment and Plan (1) Cellulitis Status: Acute (2) Ankle fracture, bimalleolar, closed Status: Acute (3) Diabetes mellitus type 2 in nonobese Status: Acute (4) Hypertension Status: Acute - Assessment and Plan (Free Text) Plan: CONTINUE iv ZOSYN 3.375 EVERY 8 HOURLY 01/26/17. CONTINUE iv VANCOMYCIN 1 G EVERY 24 HOURLY. 01/26/17. VANCO TROUGH LEVEL ON THE FOURTH DOSE TO MAINTAIN LEVELS BETWEEN 10 AND 20. FOLLOW-UP CULTURES TO ADJUST ANTIBIOTICS. MONITOR RENAL FUNCTION CLOSELY. ORTHO EVALUATION noted. Patient for PICC line. LOCAL WOUND CARE PER WOUND CARE.
--- NOTE | 2017-01-27 14:54 | NM ---
PROCEDURE: Whole Body Bone Scan HISTORY: r/o OM Cellulitis right ankle COMPARISON: January 26, 2017. Plain film radiographs right ankle. Relevant surgical history: Status post open reduction internal fixation distal fibular fracture and medial malleolar fracture. TECHNIQUE: Following administration of 21.2 miCu of Tc MDP multiplanar whole body images were obtained. FINDINGS: Flow component: Increased flow to the right ankle laterally and to a lesser extent medially. Blood pool component: Accumulation of radionuclide in the soft tissues about the right ankle consistent with findings on plain film radiographs including the skin ulcer adjacent to the medial malleolus. Delayed images at 3:00: Retention of radionuclide right ankle. Additional increased uptake both knees consistent with degenerative change. Uptake in the left foot either degenerative or posttraumatic. IMPRESSION: Findings consistent with cellulitis/right ankle. No evidence of acute osseous process.
--- NOTE | 2017-01-28 02:24 | CP.PCM.PN ---
Subjective - Date & Time of Evaluation Date of Evaluation: 01/28/17 Time of Evaluation: 21:00 - Subjective Subjective: Pt seen and examined, right ankle swelling is improb=ving, pt still c/o pain but reports iys much beter then vbefore Objective - Vital Signs/Intake and Output Vital Signs (last 24 hours): Temp Pulse Resp BP Pulse Ox 97.7 F 61 20 122/57 L 98 01/28/17 00:00 01/28/17 00:00 01/28/17 00:00 01/28/17 00:00 01/28/17 00:00 Intake and Output: 01/27/17 01/28/17 18:59 06:59 Intake Total 480 300 Balance 480 300 - Medications Medications: Current Medications Amlodipine Besylate (Norvasc) 5 mg PO DAILY [facility] Last Admin: 01/27/17 10:03 Dose: 5 mg Celecoxib (Celebrex) 200 mg PO DAILY [facility] Last Admin: 01/27/17 10:03 Dose: 200 mg Collagenase (Santyl) 0 gm TOP DAILY [facility] Docusate Sodium (Colace) 100 mg PO BID [facility] Last Admin: 01/27/17 17:22 Dose: 100 mg Donepezil HCl (Aricept) 5 mg PO HS [facility] Last Admin: 01/27/17 21:30 Dose: 5 mg Enoxaparin Sodium (Lovenox) 40 mg SC DAILY [facility] Last Admin: 01/27/17 10:03 Dose: 40 mg Famotidine (Pepcid) 40 mg PO DAILY [facility] Last Admin: 01/27/17 10:03 Dose: 40 mg Vancomycin HCl 1 gm/ Sodium (Chloride) 250 mls @ 166.7 mls/hr IVPB Q24H [facility] Last Admin: 01/27/17 14:31 Dose: 166.7 mls/hr Piperacillin Sod/Tazobactam Sod (Zosyn 3.375 Gm Iv Premix) 3.375 gm in 50 mls @ 100 mls/hr IVPB Q8H [facility] Last Admin: 01/27/17 18:44 Dose: 100 mls/hr Insulin Aspart (Novolog) 0 unit SC ACHS [facility] PRN Reason: Protocol Last Admin: 01/27/17 21:31 Dose: Not Given Metformin HCl (Glucophage) 500 mg PO BID [facility] Last Admin: 01/27/17 17:22 Dose: 500 mg Oxycodone/Acetaminophen (Percocet 5/325 Mg Tab) 1 tab PO Q6 PRN PRN Reason: Pain, moderate (4-7) Stop: 01/29/17 16:09 Rosuvastatin Calcium (Crestor) 20 mg PO HS [facility] Last Admin: 01/27/17 21:30 Dose: 20 mg Sitagliptin Phosphate (Januvia) 100 mg PO DAILY [facility] Last Admin: 01/27/17 10:00 Dose: Not Given - Constitutional Appears: No Acute Distress - Head Exam Head Exam: ATRAUMATIC, NORMAL INSPECTION, NORMOCEPHALIC - Respiratory Exam Respiratory Exam: Clear to Ausculation Bilateral, NORMAL BREATHING PATTERN - Cardiovascular Exam Cardiovascular Exam: REGULAR RHYTHM, +S1, +S2. absent: Murmur - GI/Abdominal Exam GI & Abdominal Exam: Soft, Normal Bowel Sounds. absent: Tenderness - Rectal Exam Rectal Exam: Deferred - Extremities Exam Additional comments: right ankle: significantly improved surrounding erythema. Swelling now only mild. Foot elevated. +DP/PT pulses, calves soft NT neg homans. Dressing over ulcer left intact, dressing changes as per wound care. +ROM toes, sensation intact Assessment and Plan (1) Cellulitis Assessment & Plan: (1) Right ankle swelling Assessment & Plan: wound cx Gram - torsten ID consultation appreciated continue abx per ID bone scan no osteomyelitis continue local wound care PT/OT VTE proph Status: Acute (2) Diabetes mellitus type 2 in nonobese Status: Chronic (3) Hypertension Status: Chronic
[2017-01-28] MEDS: Piperacill/Tazo 3.375gm in Dex 3.375 GM/50 ML BAG IVPB SCH ×2 (02:39→13:15)
[2017-01-28 07:27] LABS: BLOOD UREA NITROGEN 11 mg/dL (7-17); GFR AFRICAN-AMERICAN > 60; GFR NON-AFRICAN AMERICAN > 60
[2017-01-28 07:28] LABS: CALCIUM 9.1 mg/dl (8.6-10.4)
[2017-01-28] MEDS: (Novolog) Insulin Aspart, Recombinant 100 u/ml 10 ml vial SC SCH ×4 (08:33→21:36)
--- NOTE | 2017-01-28 09:27 | CP.PCM.PN ---
Subjective - Date & Time of Evaluation Date of Evaluation: 01/28/17 Time of Evaluation: 10:01 - Subjective Subjective: Patient somewhat uncooperative, requires much encouragement to examine. She says she still has pain in her ankle, but that it is getting better.Denies CP/ SOB/dizziness/numbness/tingling. Objective - Vital Signs/Intake and Output Vital Signs (last 24 hours): Temp Pulse Resp BP Pulse Ox 98.2 F 58 L 20 132/60 98 01/28/17 07:42 01/28/17 07:42 01/28/17 07:42 01/28/17 07:42 01/28/17 07:42 Intake and Output: 01/28/17 01/28/17 06:59 18:59 Intake Total 300 230 Balance 300 230 - Medications Medications: Current Medications Amlodipine Besylate (Norvasc) 5 mg PO DAILY [facility] Last Admin: 01/27/17 10:03 Dose: 5 mg Celecoxib (Celebrex) 200 mg PO DAILY [facility] Last Admin: 01/27/17 10:03 Dose: 200 mg Collagenase (Santyl) 0 gm TOP DAILY [facility] Docusate Sodium (Colace) 100 mg PO BID [facility] Last Admin: 01/27/17 17:22 Dose: 100 mg Donepezil HCl (Aricept) 5 mg PO HS [facility] Last Admin: 01/27/17 21:30 Dose: 5 mg Enoxaparin Sodium (Lovenox) 40 mg SC DAILY [facility] Last Admin: 01/27/17 10:03 Dose: 40 mg Famotidine (Pepcid) 40 mg PO DAILY [facility] Last Admin: 01/27/17 10:03 Dose: 40 mg Vancomycin HCl 1 gm/ Sodium (Chloride) 250 mls @ 166.7 mls/hr IVPB Q24H [facility] Last Admin: 01/27/17 14:31 Dose: 166.7 mls/hr Piperacillin Sod/Tazobactam Sod (Zosyn 3.375 Gm Iv Premix) 3.375 gm in 50 mls @ 100 mls/hr IVPB Q8H [facility] Last Admin: 01/28/17 02:39 Dose: 100 mls/hr Insulin Aspart (Novolog) 0 unit SC ACHS [facility] PRN Reason: Protocol Last Admin: 01/28/17 08:33 Dose: Not Given Metformin HCl (Glucophage) 500 mg PO BID [facility] Last Admin: 01/27/17 17:22 Dose: 500 mg Oxycodone/Acetaminophen (Percocet 5/325 Mg Tab) 1 tab PO Q6 PRN PRN Reason: Pain, moderate (4-7) Stop: 01/29/17 16:09 Rosuvastatin Calcium (Crestor) 20 mg PO HS [facility] Last Admin: 01/27/17 21:30 Dose: 20 mg Sitagliptin Phosphate (Januvia) 100 mg PO DAILY [facility] Last Admin: 01/27/17 10:00 Dose: Not Given - Labs Labs: 01/28/17 06:20 - Extremities Exam Additional comments: right ankle: significantly improved surrounding erythema. Swelling now only mild. Foot elevated. +DP/PT pulses, calves soft NT neg homans. Dressing over ulcer left intact, dressing changes as per wound care. +ROM toes, sensation intact Assessment and Plan (1) Right ankle swelling Assessment & Plan: wound cx Gram - torsten ID consultation appreciated continue abx per ID bone scan no osteomyelitis continue local wound care PT/OT VTE proph d/w Dr. Brand, agrees with above Status: Acute (2) Wound infection after surgery Status: Acute
--- NOTE | 2017-01-28 11:57 | CP.PCM.PN ---
Subjective - Date & Time of Evaluation Date of Evaluation: 01/28/17 Time of Evaluation: 11:57 - Subjective Subjective: CHIEF COMPLAINTS TODAY : afebrile, c/o pain right ankle ulcer site. still difficult to put pressureon rt. foot WOUND CULTURE +VE PSEUDOMONAS AERUGINOSA S -CEFEPIME/ CIPRO & CORYNEBACTERIUM SPS. ROS. HEENT : N. Resp : No SOB wheezing, cough Cardio : No CP, PND orthopnea GI : No abd. 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 Musculoskel : N Ext. : Pedal pulses intact, +VE EDEMA AND CELLULITIS RIGHT ANKLE WITH AN ULCER WITH A YELLOW BASE/DRAINAGE . NO CALF PAIN. Derm : N Psych : N. PE. Pt. is alert awake in no distress. V.S As noted in the chart Head ,ear nose,throat and eyes : Normal. Neck : Supple with normal carotids. Lungs: Clear air entry. Heart : S1 & S2 normal . . No murmur. S4 + Abd : Soft non tender with normal bowel sounds. Neuro : Moves all ext. with no localized deficit. Ext : . Neg. calf tenderness +VE EDEMA AND CELLULITIS RIGHT ANKLE WITH AN ULCER 1CM WITH A YELLOW BASE/DRAINAGE . Derm : No rashes or decubitus ulcer. Radiology/Labs . THREE-PHASE BONE SCAN +ve cellulitis right ankle with no osseous process. wound cultures right ankle -gram-negative torsten ( identification pending ) DUPLEX VENOUS NEGATIVE FOR DVT RIGHT AND LEFT LE Objective - Vital Signs/Intake and Output Vital Signs (last 24 hours): Temp Pulse Resp BP Pulse Ox 98.2 F 58 L 20 132/60 98 01/28/17 07:42 01/28/17 07:42 01/28/17 07:42 01/28/17 07:42 01/28/17 07:42 Intake and Output: 01/28/17 01/28/17 06:59 18:59 Intake Total 300 230 Balance 300 230 - Medications Medications: Current Medications Amlodipine Besylate (Norvasc) 5 mg PO DAILY [facility] Last Admin: 01/27/17 10:03 Dose: 5 mg Celecoxib (Celebrex) 200 mg PO DAILY [facility] Last Admin: 01/27/17 10:03 Dose: 200 mg Collagenase (Santyl) 0 gm TOP DAILY [facility] Docusate Sodium (Colace) 100 mg PO BID [facility] Last Admin: 01/27/17 17:22 Dose: 100 mg Donepezil HCl (Aricept) 5 mg PO HS [facility] Last Admin: 01/27/17 21:30 Dose: 5 mg Enoxaparin Sodium (Lovenox) 40 mg SC DAILY [facility] Last Admin: 01/27/17 10:03 Dose: 40 mg Famotidine (Pepcid) 40 mg PO DAILY [facility] Last Admin: 01/27/17 10:03 Dose: 40 mg Vancomycin HCl 1 gm/ Sodium (Chloride) 250 mls @ 166.7 mls/hr IVPB Q24H [facility] Last Admin: 01/27/17 14:31 Dose: 166.7 mls/hr Piperacillin Sod/Tazobactam Sod (Zosyn 3.375 Gm Iv Premix) 3.375 gm in 50 mls @ 100 mls/hr IVPB Q8H [facility] Last Admin: 01/28/17 02:39 Dose: 100 mls/hr Insulin Aspart (Novolog) 0 unit SC ACHS [facility] PRN Reason: Protocol Last Admin: 01/28/17 08:33 Dose: Not Given Metformin HCl (Glucophage) 500 mg PO BID [facility] Last Admin: 01/27/17 17:22 Dose: 500 mg Oxycodone/Acetaminophen (Percocet 5/325 Mg Tab) 1 tab PO Q6 PRN PRN Reason: Pain, moderate (4-7) Stop: 01/29/17 16:09 Rosuvastatin Calcium (Crestor) 20 mg PO HS [facility] Last Admin: 01/27/17 21:30 Dose: 20 mg Sitagliptin Phosphate (Januvia) 100 mg PO DAILY [facility] Last Admin: 01/27/17 10:00 Dose: Not Given - Labs Labs: 01/28/17 06:20 Assessment and Plan (1) Cellulitis Status: Acute (2) Ankle fracture, bimalleolar, closed Status: Acute (3) Diabetes mellitus type 2 in nonobese Status: Acute (4) Hypertension Status: Acute - Assessment and Plan (Free Text) Plan: DISCONTINUE iv ZOSYN 3.375 EVERY 8 HOURLY 01/26/17. START IV CEFEPIME 1GM IVPB Q 12HRLY X 2WEEKS F/U PO CIPRO 500MG BID X 7 DAYS. CONTINUE iv VANCOMYCIN 1 G EVERY 24 HOURLY. 01/26/17. X 2WEEKS VANCO TROUGH LEVEL WEEKLY X 2 WKS AND KEEP VANC TROUGH BTWEEN 10- 20 MONITOR RENAL FUNCTION CLOSELY. ORTHO ON BOARD. Patient for PICC line. LOCAL WOUND CARE PER WOUND CARE.
[2017-01-28] MEDS: Enoxaparin 40 mg Syringe SC SCH (12:00)
[2017-01-28] MEDS: Collagenase 250 Units/gm Ointment(30 gm) TOP SCH (12:08)
--- NOTE | 2017-01-28 14:04 | RAD ---
Chest x-ray single frontal view History: PICC line placement. Comparison: None available. Findings: Right PICC line with tip extending to the distal right SVC. Mild venous congestion. Biapical pleural thickening with upper lobe granulomatous changes. Tortuous aorta. Degenerative changes in the spine and shoulders. Impression: Interval insertion of a right PICC line with no significant post procedure pneumothorax.
[2017-01-29 07:33] LABS: GFR AFRICAN-AMERICAN > 60; GFR NON-AFRICAN AMERICAN > 60
[2017-01-29 07:34] LABS: BLOOD UREA NITROGEN 10 mg/dL (7-17); CALCIUM 8.8 mg/dl (8.6-10.4)
[2017-01-29] MEDS: (Novolog) Insulin Aspart, Recombinant 100 u/ml 10 ml vial SC SCH ×3 (07:49→21:45)
[2017-01-29] MEDS: Collagenase 250 Units/gm Ointment(30 gm) TOP SCH (11:26)
[2017-01-29] MEDS: Enoxaparin 40 mg Syringe SC SCH (11:26)
--- NOTE | 2017-01-29 21:53 | CP.PCM.PN ---
Subjective - Date & Time of Evaluation Date of Evaluation: 01/29/17 Time of Evaluation: 01:30 - Subjective Subjective: FEELS PAIN IN L ANKLE, NO SOB, NO CHEST PAIN, ON IV ANTIBIOTICS Objective - Vital Signs/Intake and Output Vital Signs (last 24 hours): Temp Pulse Resp BP Pulse Ox 98.1 F 67 20 152/66 H 97 01/29/17 08:24 01/29/17 08:24 01/29/17 08:24 01/29/17 08:24 01/29/17 08:24 Intake and Output: 01/29/17 01/30/17 18:59 06:59 Intake Total 340 Balance 340 - Medications Medications: Current Medications Amlodipine Besylate (Norvasc) 5 mg PO DAILY [facility] Last Admin: 01/29/17 11:25 Dose: 5 mg Celecoxib (Celebrex) 200 mg PO DAILY [facility] Last Admin: 01/29/17 11:25 Dose: 200 mg Collagenase (Santyl) 0 gm TOP DAILY [facility] Last Admin: 01/29/17 11:26 Dose: 1 applic Docusate Sodium (Colace) 100 mg PO BID [facility] Last Admin: 01/29/17 11:26 Dose: 100 mg Donepezil HCl (Aricept) 5 mg PO HS [facility] Last Admin: 01/28/17 21:34 Dose: 5 mg Enoxaparin Sodium (Lovenox) 40 mg SC DAILY [facility] Last Admin: 01/29/17 11:26 Dose: 40 mg Famotidine (Pepcid) 40 mg PO DAILY [facility] Last Admin: 01/29/17 11:26 Dose: 40 mg Vancomycin HCl 1 gm/ Sodium (Chloride) 250 mls @ 166.7 mls/hr IVPB Q24H [facility] Last Admin: 01/28/17 14:51 Dose: 166.7 mls/hr Cefepime HCl 1 gm/ Dextrose 50 mls @ 100 mls/hr IVPB Q12H [facility] Last Admin: 01/29/17 00:33 Dose: 100 mls/hr Insulin Aspart (Novolog) 0 unit SC ACHS [facility] PRN Reason: Protocol Last Admin: 01/29/17 21:45 Dose: Not Given Metformin HCl (Glucophage) 500 mg PO BID [facility] Last Admin: 01/29/17 11:25 Dose: 500 mg Rosuvastatin Calcium (Crestor) 20 mg PO HS [facility] Last Admin: 01/28/17 21:34 Dose: 20 mg Sitagliptin Phosphate (Januvia) 100 mg PO DAILY [facility] Last Admin: 01/29/17 11:25 Dose: 100 mg - Labs Labs: 01/29/17 06:18 - Eye Exam Eye Exam: EOMI, Normal appearance, PERRL Pupil Exam: NORMAL ACCOMODATION - ENT Exam ENT Exam: Mucous Membranes Moist, Normal Exam, TM's Normal Bilaterally - Respiratory Exam Respiratory Exam: Clear to Ausculation Bilateral, NORMAL BREATHING PATTERN - Cardiovascular Exam Cardiovascular Exam: REGULAR RHYTHM, +S1, +S2 - GI/Abdominal Exam GI & Abdominal Exam: Normal Bowel Sounds - Rectal Exam Rectal Exam: NORMAL INSPECTION - Extremities Exam Additional comments: L ANKLE OPEN WOUND WITH DISCHARGE Assessment and Plan (1) Cellulitis Assessment & Plan: L ANKLE POST OP ON IV ANTIBIOTICS , NEGATIVE BONE SCAN Status: Acute (2) Diabetes mellitus type 2 in nonobese Status: Acute (3) Hypertension Status: Acute
--- NOTE | 2017-01-29 23:43 | CP.PCM.PN ---
Subjective - Date & Time of Evaluation Date of Evaluation: 01/29/17 Time of Evaluation: 23:43 - Subjective Subjective: CHIEF COMPLAINTS TODAY : afebrile, c/o pain right ankle ulcer site. still difficult to put pressureon rt. foot WOUND CULTURE +VE PSEUDOMONAS AERUGINOSA S -CEFEPIME/ CIPRO & CORYNEBACTERIUM SPS. ROS. HEENT : N. Resp : No SOB wheezing, cough Cardio : No CP, PND orthopnea GI : No abd. 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 Musculoskel : N Ext. : Pedal pulses intact, +VE EDEMA AND CELLULITIS RIGHT ANKLE WITH AN ULCER WITH A YELLOW BASE/DRAINAGE . NO CALF PAIN. Derm : N Psych : N. PE. Pt. is alert awake in no distress. V.S As noted in the chart Head ,ear nose,throat and eyes : Normal. Neck : Supple with normal carotids. Lungs: Clear air entry. Heart : S1 & S2 normal . . No murmur. S4 + Abd : Soft non tender with normal bowel sounds. Neuro : Moves all ext. with no localized deficit. Ext : . Neg. calf tenderness +VE EDEMA AND CELLULITIS RIGHT ANKLE WITH AN ULCER 1CM WITH A YELLOW BASE/DRAINAGE . Derm : No rashes or decubitus ulcer. Radiology/Labs . 01/28/17 VANCO TROUGH 12.8 ( [place] ) 01/29/17 CREAT 0.6 -N THREE-PHASE BONE SCAN +ve cellulitis right ankle with no osseous process. wound cultures right ankle -gram-negative torsten ( identification pending ) DUPLEX VENOUS NEGATIVE FOR DVT RIGHT AND LEFT LE Objective - Vital Signs/Intake and Output Vital Signs (last 24 hours): Temp Pulse Resp BP Pulse Ox 98.1 F 67 20 152/66 H 97 01/29/17 08:24 01/29/17 08:24 01/29/17 08:24 01/29/17 08:24 01/29/17 08:24 Intake and Output: 01/29/17 01/30/17 18:59 06:59 Intake Total 340 Balance 340 - Medications Medications: Current Medications Amlodipine Besylate (Norvasc) 5 mg PO DAILY [facility] Last Admin: 01/29/17 11:25 Dose: 5 mg Celecoxib (Celebrex) 200 mg PO DAILY [facility] Last Admin: 01/29/17 11:25 Dose: 200 mg Collagenase (Santyl) 0 gm TOP DAILY [facility] Last Admin: 01/29/17 11:26 Dose: 1 applic Docusate Sodium (Colace) 100 mg PO BID [facility] Last Admin: 01/29/17 11:26 Dose: 100 mg Donepezil HCl (Aricept) 5 mg PO HS [facility] Last Admin: 01/29/17 22:21 Dose: 5 mg Enoxaparin Sodium (Lovenox) 40 mg SC DAILY [facility] Last Admin: 01/29/17 11:26 Dose: 40 mg Famotidine (Pepcid) 40 mg PO DAILY [facility] Last Admin: 01/29/17 11:26 Dose: 40 mg Vancomycin HCl 1 gm/ Sodium (Chloride) 250 mls @ 166.7 mls/hr IVPB Q24H [facility] Last Admin: 01/28/17 14:51 Dose: 166.7 mls/hr Cefepime HCl 1 gm/ Dextrose 50 mls @ 100 mls/hr IVPB Q12H [facility] Last Admin: 01/29/17 00:33 Dose: 100 mls/hr Insulin Aspart (Novolog) 0 unit SC [facility] PRN Reason: Protocol Last Admin: 01/29/17 21:45 Dose: Not Given Metformin HCl (Glucophage) 500 mg PO BID [facility] Last Admin: 01/29/17 11:25 Dose: 500 mg Rosuvastatin Calcium (Crestor) 20 mg PO HS [facility] Last Admin: 01/29/17 22:21 Dose: 20 mg Sitagliptin Phosphate (Januvia) 100 mg PO DAILY [facility] Last Admin: 01/29/17 11:25 Dose: 100 mg - Labs Labs: 01/29/17 06:18 Assessment and Plan (1) Cellulitis Status: Acute (2) Ankle fracture, bimalleolar, closed Status: Acute (3) Diabetes mellitus type 2 in nonobese Status: Acute (4) Hypertension Status: Acute - Assessment and Plan (Free Text) Plan: ON IV CEFEPIME 1GM IVPB Q 12HRLY X 2WEEKS ( STARTED 01/28/17) F/U PO CIPRO 500MG BID X 7 DAYS. CONTINUE iv VANCOMYCIN 1 G EVERY 24 HOURLY. 01/26/17. X 2WEEKS VANCO TROUGH LEVEL WEEKLY X 2 WKS AND KEEP VANC TROUGH BTWEEN 10- 20 MONITOR RENAL FUNCTION CLOSELY. LOCAL WOUND CARE PER WOUND CARE. PT FOR PICCLINE .PT UNDERSTANDS.
[2017-01-30 07:41] LABS: GFR AFRICAN-AMERICAN > 60; GFR NON-AFRICAN AMERICAN > 60
[2017-01-30] MEDS: (Novolog) Insulin Aspart, Recombinant 100 u/ml 10 ml vial SC SCH ×3 (07:41→17:35)
[2017-01-30 07:42] LABS: BLOOD UREA NITROGEN 8 mg/dL (7-17); CALCIUM 8.7 mg/dl (8.6-10.4)
[2017-01-30] MEDS: Enoxaparin 40 mg Syringe SC SCH (10:18)
[2017-01-30] MEDS: Collagenase 250 Units/gm Ointment(30 gm) TOP SCH (10:21)
--- NOTE | 2017-01-30 23:33 | CP.PCM.PN ---
Subjective - Date & Time of Evaluation Date of Evaluation: 01/30/17 Time of Evaluation: 08:00 - Subjective Subjective: Pt seen and examind, wound is healing, c/o some post op pain Objective - Vital Signs/Intake and Output Vital Signs (last 24 hours): Temp Pulse Resp BP Pulse Ox 97.5 F L 74 20 147/70 99 01/30/17 15:00 01/30/17 15:00 01/30/17 15:00 01/30/17 15:00 01/30/17 15:00 Intake and Output: 01/30/17 01/31/17 18:59 06:59 Intake Total 400 Balance 400 - Medications Medications: Current Medications Amlodipine Besylate (Norvasc) 5 mg PO DAILY [facility] Last Admin: 01/30/17 10:18 Dose: 5 mg Celecoxib (Celebrex) 200 mg PO DAILY [facility] Last Admin: 01/30/17 10:20 Dose: 200 mg Collagenase (Santyl) 0 gm TOP DAILY [facility] Last Admin: 01/30/17 10:21 Dose: 1 applic Docusate Sodium (Colace) 100 mg PO BID [facility] Last Admin: 01/30/17 17:39 Dose: 100 mg Donepezil HCl (Aricept) 5 mg PO HS [facility] Last Admin: 01/30/17 21:49 Dose: 5 mg Enoxaparin Sodium (Lovenox) 40 mg SC DAILY [facility] Last Admin: 01/30/17 10:18 Dose: 40 mg Famotidine (Pepcid) 40 mg PO DAILY [facility] Last Admin: 01/30/17 10:20 Dose: 40 mg Vancomycin HCl 1 gm/ Sodium (Chloride) 250 mls @ 166.7 mls/hr IVPB Q24H [facility] Last Admin: 01/30/17 14:16 Dose: 166.7 mls/hr Cefepime HCl 1 gm/ Dextrose 50 mls @ 100 mls/hr IVPB Q12H [facility] Last Admin: 01/30/17 13:09 Dose: 100 mls/hr Insulin Aspart (Novolog) 0 unit SC ACHS [facility] PRN Reason: Protocol Last Admin: 01/30/17 17:35 Dose: 3 unit Metformin HCl (Glucophage) 500 mg PO BID [facility] Last Admin: 01/30/17 17:39 Dose: 500 mg Rosuvastatin Calcium (Crestor) 20 mg PO HS [facility] Last Admin: 01/30/17 21:49 Dose: 20 mg Sitagliptin Phosphate (Januvia) 100 mg PO DAILY [facility] Last Admin: 01/30/17 10:15 Dose: 100 mg - Labs Labs: 01/30/17 07:17 - Constitutional Appears: No Acute Distress - Head Exam Head Exam: ATRAUMATIC, NORMAL INSPECTION, NORMOCEPHALIC - Eye Exam Eye Exam: EOMI, Normal appearance, PERRL Pupil Exam: NORMAL ACCOMODATION, PERRL - ENT Exam ENT Exam: Mucous Membranes Moist, Normal Exam - Neck Exam Neck Exam: Full ROM, Normal Inspection. absent: Lymphadenopathy - Respiratory Exam Respiratory Exam: Clear to Ausculation Bilateral, NORMAL BREATHING PATTERN - Cardiovascular Exam Cardiovascular Exam: REGULAR RHYTHM, +S1, +S2. absent: Murmur - GI/Abdominal Exam GI & Abdominal Exam: Soft, Normal Bowel Sounds. absent: Tenderness - Rectal Exam Rectal Exam: Deferred Assessment and Plan (1) Cellulitis Status: Acute (2) Diabetes mellitus type 2 in nonobese Status: Chronic (3) Hypertension Status: Chronic
[2017-01-31] MEDS: (Novolog) Insulin Aspart, Recombinant 100 u/ml 10 ml vial SC SCH ×6 (08:28→21:31)
--- NOTE | 2017-01-31 09:21 | CP.PCM.PN ---
Subjective - Date & Time of Evaluation Date of Evaluation: 01/31/17 Time of Evaluation: 09:17 - Subjective Subjective: Patient states her ankle is feeling better. She has been walking around without boot. No new complaints. Review of Systems - Review of Systems All systems: reviewed and no additional remarkable complaints except - Cardiovascular Cardiovascular: UNREMARKABLE - Respiratory Respiratory: UNREMARKABLE - Gastrointestinal Gastrointestinal: UNREMARKABLE - Musculoskeletal Musculoskeletal: As Par HPI - Integumentary Integumentary: Wounds - Neurological Neurological: UNREMARKABLE Objective - Vital Signs/Intake and Output Vital Signs (last 24 hours): Temp Pulse Resp BP Pulse Ox 98 F 76 20 130/69 98 01/31/17 07:38 01/31/17 07:38 01/31/17 07:38 01/31/17 07:38 01/31/17 07:38 Intake and Output: 01/31/17 01/31/17 06:59 18:59 Intake Total 840 Balance 840 - Medications Medications: Current Medications Amlodipine Besylate (Norvasc) 5 mg PO DAILY [facility] Last Admin: 01/30/17 10:18 Dose: 5 mg Celecoxib (Celebrex) 200 mg PO DAILY [facility] Last Admin: 01/30/17 10:20 Dose: 200 mg Collagenase (Santyl) 0 gm TOP DAILY [facility] Last Admin: 01/30/17 10:21 Dose: 1 applic Docusate Sodium (Colace) 100 mg PO BID [facility] Last Admin: 01/30/17 17:39 Dose: 100 mg Donepezil HCl (Aricept) 5 mg PO HS [facility] Last Admin: 01/30/17 21:49 Dose: 5 mg Enoxaparin Sodium (Lovenox) 40 mg SC DAILY [facility] Last Admin: 01/30/17 10:18 Dose: 40 mg Famotidine (Pepcid) 40 mg PO DAILY [facility] Last Admin: 01/30/17 10:20 Dose: 40 mg Vancomycin HCl 1 gm/ Sodium (Chloride) 250 mls @ 166.7 mls/hr IVPB Q24H [facility] Last Admin: 01/30/17 14:16 Dose: 166.7 mls/hr Cefepime HCl 1 gm/ Dextrose 50 mls @ 100 mls/hr IVPB Q12H [facility] Last Admin: 01/31/17 00:01 Dose: 100 mls/hr Insulin Aspart (Novolog) 0 unit SC ACHS [facility] PRN Reason: Protocol Last Admin: 01/31/17 08:28 Dose: Not Given Metformin HCl (Glucophage) 500 mg PO BID [facility] Last Admin: 01/30/17 17:39 Dose: 500 mg Rosuvastatin Calcium (Crestor) 20 mg PO HS [facility] Last Admin: 01/30/17 21:49 Dose: 20 mg Sitagliptin Phosphate (Januvia) 100 mg PO DAILY [facility] Last Admin: 01/30/17 10:15 Dose: 100 mg - Labs Labs: 01/30/17 07:17 - Constitutional Appears: Well, No Acute Distress - Respiratory Exam Respiratory Exam: NORMAL BREATHING PATTERN - Cardiovascular Exam Additional comments: +DP pulse calves soft NT neg homans - Extremities Exam Additional comments: medial ankle wound dressing changed: 2mm smaller in circumference. some granulation at border. Some fibrinous exudate debrided with wet sterile gauze and santyl reapplied. Cellulitis surrounding wound completely resolved. Less swelling. Sensation intact. no hardware or bone exposed. - Neurological Exam Neurological Exam: Alert, Awake, Oriented x3 Neuro motor strength exam: Right Lower Extremity: 5 (flex/ext toes, 4/5 ankle DF /PF/inv/ever) - Psychiatric Exam Psychiatric exam: Normal Affect, Normal Mood - Skin Skin Exam: Warm Assessment and Plan (1) Wound infection after surgery Assessment & Plan: local wound care as per wound care nurse with santyl daily PT/OT WBAT, boot for comfort again recommended encouraged and demonstrated ROM ankle PICC line as per ID d/c planning d/w Dr. Brand, agrees with above Status: Acute (2) Right ankle swelling Assessment & Plan: see boave Status: Acute
[2017-01-31] MEDS: Collagenase 250 Units/gm Ointment(30 gm) TOP SCH (10:12)
[2017-01-31] MEDS: Enoxaparin 40 mg Syringe SC SCH (10:13)
--- NOTE | 2017-01-31 13:26 | CP.PCM.PN ---
Subjective - Date & Time of Evaluation Date of Evaluation: 01/31/17 Time of Evaluation: 13:25 - Subjective Subjective: CHIEF COMPLAINTS TODAY : afebrile, PAIN RT ANKLEMUCH IMPROVED. PATIENT AMBULATING BY HERSELF S/P RAHUL picc LINE IN PLACE 01/28/17 WOUND CULTURE +VE PSEUDOMONAS AERUGINOSA S -CEFEPIME/ CIPRO & CORYNEBACTERIUM SPS. ROS. HEENT : N. Resp : No SOB wheezing, cough Cardio : No CP, PND orthopnea GI : No abd. Pain, n/v [employer]ATIONS : No headache , focal deficit. Musculoskel : N Ext. : Pedal pulses intact, +VE EDEMA AND CELLULITIS RIGHT ANKLE WITH AN ULCER WITH NO CALF PAIN. DRESSING DRY IN PLACE. Derm : N Psych : N. PE. Pt. is alert awake in no distress. V.S As noted in the chart Head ,ear nose,throat and eyes : Normal. Neck : Supple with normal carotids. Lungs: Clear air entry. Heart : S1 & S2 normal . . No murmur. S4 + Abd : Soft non tender with normal bowel sounds. Neuro : Moves all ext. with no localized deficit. Ext : . Neg. calf tenderness +VE EDEMA AND CELLULITIS RIGHT ANKLE WITH AN ULCER 1CM WITH A YELLOW BASE/DRAINAGE IMPROVING Derm : No rashes or decubitus ulcer. Radiology/Labs . 01/28/17 VANCO TROUGH 12.8 ( OK ) 01/29/17 CREAT 0.6 -N THREE-PHASE BONE SCAN +ve cellulitis right ankle with no osseous process. wound cultures right ankle -gram-negative torsten ( identification pending ) DUPLEX VENOUS NEGATIVE FOR DVT RIGHT AND LEFT LE Objective - Vital Signs/Intake and Output Vital Signs (last 24 hours): Temp Pulse Resp BP Pulse Ox 98 F 76 20 130/69 98 01/31/17 07:38 01/31/17 07:38 01/31/17 07:38 01/31/17 07:38 01/31/17 07:38 Intake and Output: 01/31/17 01/31/17 06:59 18:59 Intake Total 840 Balance 840 - Medications Medications: Current Medications Amlodipine Besylate (Norvasc) 5 mg PO DAILY [facility] Last Admin: 01/31/17 10:12 Dose: 5 mg Celecoxib (Celebrex) 200 mg PO DAILY [facility] Last Admin: 01/31/17 10:13 Dose: 200 mg Collagenase (Santyl) 0 gm TOP DAILY [facility] Last Admin: 01/31/17 10:12 Dose: 1 applic Docusate Sodium (Colace) 100 mg PO BID [facility] Last Admin: 01/31/17 10:13 Dose: 100 mg Donepezil HCl (Aricept) 5 mg PO HS [facility] Last Admin: 01/30/17 21:49 Dose: 5 mg Enoxaparin Sodium (Lovenox) 40 mg SC DAILY [facility] Last Admin: 01/31/17 10:13 Dose: 40 mg Famotidine (Pepcid) 40 mg PO DAILY [facility] Last Admin: 01/31/17 10:13 Dose: 40 mg Vancomycin HCl 1 gm/ Sodium (Chloride) 250 mls @ 166.7 mls/hr IVPB Q24H [facility] Last Admin: 01/30/17 14:16 Dose: 166.7 mls/hr Cefepime HCl 1 gm/ Dextrose 50 mls @ 100 mls/hr IVPB Q12H [facility] Last Admin: 01/31/17 00:01 Dose: 100 mls/hr Insulin Aspart (Novolog) 0 unit SC [facility] PRN Reason: Protocol Last Admin: 01/31/17 08:28 Dose: Not Given Metformin HCl (Glucophage) 500 mg PO BID [facility] Last Admin: 01/31/17 10:13 Dose: 500 mg Rosuvastatin Calcium (Crestor) 20 mg PO HS [facility] Last Admin: 01/30/17 21:49 Dose: 20 mg Sitagliptin Phosphate (Januvia) 100 mg PO DAILY [facility] Last Admin: 01/31/17 10:13 Dose: Not Given - Labs Labs: 01/30/17 07:17 Assessment and Plan (1) Cellulitis Status: Acute (2) Ankle fracture, bimalleolar, closed Status: Acute (3) Diabetes mellitus type 2 in nonobese Status: Acute (4) Hypertension Status: Acute - Assessment and Plan (Free Text) Plan: ON IV CEFEPIME 1GM IVPB Q 12HRLY X 2WEEKS ( STARTED 01/28/17) F/U PO CIPRO 500MG BID X 7 DAYS. CONTINUE iv VANCOMYCIN 1 G EVERY 24 HOURLY. 01/26/17. X 2WEEKS VANCO TROUGH LEVEL WEEKLY X 2 WKS AND KEEP VANC TROUGH BTWEEN 10- 20 MONITOR RENAL FUNCTION CLOSELY. LOCAL WOUND CARE PER WOUND CARE.
--- NOTE | 2017-01-31 15:06 | RAD ---
HISTORY: verify right PICC COMPARISON: No prior. FINDINGS: LUNGS: Diffuse increased interstitial lung markings suggestive for mild venous congestion with patchy bibasilar airspace opacities and small right pleural effusion. PLEURA: As above. CARDIOVASCULAR: Cardiomegaly. OSSEOUS STRUCTURES: Degenerative changes in the spine and shoulders. VISUALIZED UPPER ABDOMEN: Normal. OTHER FINDINGS: Right PICC line with tip extending to the cavoatrial junction. IMPRESSION: Diffuse increased interstitial lung markings suggestive for mild venous congestion with patchy bibasilar airspace opacities and small right pleural effusion.
--- NOTE | 2017-01-31 23:37 | CP.PCM.PN ---
Subjective - Date & Time of Evaluation Date of Evaluation: 01/31/17 Time of Evaluation: 10:00 - Subjective Subjective: PAIN IN L ANKLE , NO FEVER, ON ANTIBIOTICS, NO SOB Objective - Vital Signs/Intake and Output Vital Signs (last 24 hours): Temp Pulse Resp BP Pulse Ox 98.3 F 76 20 130/69 98 01/31/17 15:00 01/31/17 15:37 01/31/17 15:00 01/31/17 15:37 01/31/17 15:37 Intake and Output: 01/31/17 02/01/17 18:59 06:59 Intake Total 360 Output Total 0 Balance 360 - Medications Medications: Current Medications Amlodipine Besylate (Norvasc) 5 mg PO DAILY [facility] Last Admin: 01/31/17 10:12 Dose: 5 mg Celecoxib (Celebrex) 200 mg PO DAILY [facility] Last Admin: 01/31/17 10:13 Dose: 200 mg Collagenase (Santyl) 0 gm TOP DAILY [facility] Last Admin: 01/31/17 10:12 Dose: 1 applic Docusate Sodium (Colace) 100 mg PO BID [facility] Last Admin: 01/31/17 21:28 Dose: 100 mg Donepezil HCl (Aricept) 5 mg PO HS [facility] Last Admin: 01/31/17 21:26 Dose: 5 mg Enoxaparin Sodium (Lovenox) 40 mg SC DAILY [facility] Last Admin: 01/31/17 10:13 Dose: 40 mg Famotidine (Pepcid) 40 mg PO DAILY [facility] Last Admin: 01/31/17 10:13 Dose: 40 mg Vancomycin HCl 1 gm/ Sodium (Chloride) 250 mls @ 166.7 mls/hr IVPB Q24H [facility] Last Admin: 01/31/17 15:37 Dose: 166.7 mls/hr Cefepime HCl 1 gm/ Dextrose 50 mls @ 100 mls/hr IVPB Q12H [facility] Last Admin: 01/31/17 15:22 Dose: 100 mls/hr Insulin Aspart (Novolog) 0 unit SC ACHS [facility] PRN Reason: Protocol Last Admin: 01/31/17 21:31 Dose: Not Given Metformin HCl (Glucophage) 500 mg PO BID [facility] Last Admin: 01/31/17 18:00 Dose: 500 mg Rosuvastatin Calcium (Crestor) 20 mg PO HS [facility] Last Admin: 01/31/17 21:26 Dose: 20 mg Sitagliptin Phosphate (Januvia) 100 mg PO DAILY [facility] Last Admin: 01/31/17 10:13 Dose: Not Given - Labs Labs: 01/30/17 07:17 - Constitutional Appears: Non-toxic, No Acute Distress - Head Exam Head Exam: ATRAUMATIC, NORMAL INSPECTION, NORMOCEPHALIC - Eye Exam Eye Exam: EOMI, Normal appearance, PERRL - ENT Exam ENT Exam: Mucous Membranes Moist, Normal Exam, TM's Normal Bilaterally - Respiratory Exam Respiratory Exam: Clear to Ausculation Bilateral, NORMAL BREATHING PATTERN - Cardiovascular Exam Cardiovascular Exam: REGULAR RHYTHM, +S1, +S2 - GI/Abdominal Exam GI & Abdominal Exam: Normal Bowel Sounds - Extremities Exam Extremities Exam: Full ROM (L ANKLE OPEN WOUND WITH DISCHARGE), Normal Capillary Refill Assessment and Plan (1) Cellulitis Assessment & Plan: CONTINUE ANTIBIOTICS Status: Acute (2) Diabetes mellitus type 2 in nonobese Status: Chronic (3) Hypertension Status: Chronic
[2017-02-01] MEDS: (Novolog) Insulin Aspart, Recombinant 100 u/ml 10 ml vial SC SCH ×4 (07:47→21:59)
[2017-02-01] MEDS: Collagenase 250 Units/gm Ointment(30 gm) TOP SCH (10:08)
[2017-02-01] MEDS: Enoxaparin 40 mg Syringe SC SCH (10:35)
--- NOTE | 2017-02-01 19:56 | CP.PCM.PN ---
Subjective - Date & Time of Evaluation Date of Evaluation: 02/01/17 Time of Evaluation: 19:00 - Subjective Subjective: PAIN IN L ANKLE, NO FEVER,PSEUDOMONAS AERO ON CEFIPIME Objective - Vital Signs/Intake and Output Vital Signs (last 24 hours): Temp Pulse Resp BP Pulse Ox 98.2 F 70 20 109/64 96 02/01/17 15:00 02/01/17 15:00 02/01/17 15:00 02/01/17 15:00 02/01/17 15:00 Intake and Output: 02/01/17 02/02/17 18:59 06:59 Intake Total 880 Balance 880 - Medications Medications: Current Medications Amlodipine Besylate (Norvasc) 5 mg PO DAILY [facility] Last Admin: 02/01/17 10:08 Dose: 5 mg Celecoxib (Celebrex) 200 mg PO DAILY [facility] Last Admin: 02/01/17 10:08 Dose: 200 mg Collagenase (Santyl) 0 gm TOP DAILY [facility] Last Admin: 02/01/17 10:08 Dose: 1 applic Docusate Sodium (Colace) 100 mg PO BID [facility] Last Admin: 02/01/17 17:58 Dose: 100 mg Donepezil HCl (Aricept) 5 mg PO HS [facility] Last Admin: 01/31/17 21:26 Dose: 5 mg Enoxaparin Sodium (Lovenox) 40 mg SC DAILY [facility] Last Admin: 02/01/17 10:35 Dose: 40 mg Famotidine (Pepcid) 40 mg PO DAILY [facility] Last Admin: 02/01/17 10:07 Dose: 40 mg Vancomycin HCl 1 gm/ Sodium (Chloride) 250 mls @ 166.7 mls/hr IVPB Q24H [facility] Cefepime HCl (Maxipime Iv 1 Gm Premix) 1 gm in 50 mls @ 100 mls/hr IVPB Q12H [facility] Insulin Aspart (Novolog) 0 unit SC ACHS [facility] PRN Reason: Protocol Last Admin: 02/01/17 17:58 Dose: Not Given Metformin HCl (Glucophage) 500 mg PO BID [facility] Last Admin: 02/01/17 17:57 Dose: 500 mg Rosuvastatin Calcium (Crestor) 20 mg PO HS [facility] Last Admin: 01/31/17 21:26 Dose: 20 mg Sitagliptin Phosphate (Januvia) 100 mg PO DAILY [facility] Last Admin: 02/01/17 10:07 Dose: 100 mg - Labs Labs: 01/30/17 07:17 - Constitutional Appears: Non-toxic, No Acute Distress - Head Exam Head Exam: ATRAUMATIC, NORMAL INSPECTION, NORMOCEPHALIC - Eye Exam Eye Exam: EOMI, Normal appearance - Cardiovascular Exam Cardiovascular Exam: REGULAR RHYTHM, +S1, +S2 - Rectal Exam Rectal Exam: NORMAL INSPECTION - Neurological Exam Neurological Exam: Alert, Altered, Awake, CN II-XII Intact, Normal Gait, Oriented x3 Neuro motor strength exam: Left Upper Extremity: 5, Right Upper Extremity: 5, Left Lower Extremity: 5, Right Lower Extremity: 5 - Psychiatric Exam Psychiatric exam: Depressed, Flat Affect Assessment and Plan (1) Cellulitis Assessment & Plan: PSEUDOMONS ON CEFIPIME Status: Acute (2) Diabetes mellitus type 2 in nonobese Status: Chronic (3) Hypertension Status: Chronic
--- NOTE | 2017-02-01 23:30 | CP.PCM.PN ---
Subjective - Date & Time of Evaluation Date of Evaluation: 02/01/17 Time of Evaluation: 23:30 - Subjective Subjective: CHIEF COMPLAINTS TODAY : afebrile, c/o less pain and can walk on rt foot. ROS. HEENT : N. Resp : No cough, wheezing ,pleuritic CP ,or hemoptysis Cardio : No anginal CP, PND, orthopnea, palpitation GI : No abd.pain, n/v ,diarrhea or GI bleeding . COLOR MIXER : No headache, vertigo, focal deficit. Musculoskel : No joint swelling , Derm : No rash Psych : Normal affect. Ext : No swelling ,calf pain RT FOOT/ANKLE IN DRESSING. PE. Pt. is alert awake in no distress. V.S As noted in the chart Head ,ear nose,throat and eyes : Normal. Neck : Supple with normal carotids. Lungs: Clear air entry. Heart : S1 & S2 normal with S4. No murmur. Abd : Soft non tender with normal bowel sounds. Neuro : Moves all ext. with no localized deficit. Ext : LESS edema with intact pulses.Non tender calves RT FOOT/ANKLE IN DRESSING. DECREASING CELLULITUS/DRAINAGE Derm : No rashes or decubitus ulcer. LABS/RADIOLOGY: REVIEWED. Objective - Vital Signs/Intake and Output Vital Signs (last 24 hours): Temp Pulse Resp BP Pulse Ox 98.2 F 70 20 109/64 96 02/01/17 15:00 02/01/17 15:00 02/01/17 15:00 02/01/17 15:00 02/01/17 15:00 Intake and Output: 02/01/17 02/02/17 18:59 06:59 Intake Total 880 Balance 880 - Medications Medications: Current Medications Amlodipine Besylate (Norvasc) 5 mg PO DAILY [facility] Last Admin: 02/01/17 10:08 Dose: 5 mg Celecoxib (Celebrex) 200 mg PO DAILY [facility] Last Admin: 02/01/17 10:08 Dose: 200 mg Collagenase (Santyl) 0 gm TOP DAILY [facility] Last Admin: 02/01/17 10:08 Dose: 1 applic Docusate Sodium (Colace) 100 mg PO BID [facility] Last Admin: 02/01/17 17:58 Dose: 100 mg Donepezil HCl (Aricept) 5 mg PO HS [facility] Last Admin: 02/01/17 21:29 Dose: 5 mg Enoxaparin Sodium (Lovenox) 40 mg SC DAILY [facility] Last Admin: 02/01/17 10:35 Dose: 40 mg Famotidine (Pepcid) 40 mg PO DAILY [facility] Last Admin: 02/01/17 10:07 Dose: 40 mg Vancomycin HCl 1 gm/ Sodium (Chloride) 250 mls @ 166.7 mls/hr IVPB Q24H [facility] Cefepime HCl (Maxipime Iv 1 Gm Premix) 1 gm in 50 mls @ 100 mls/hr IVPB Q12H [facility] Insulin Aspart (Novolog) 0 unit SC ACHS [facility] PRN Reason: Protocol Last Admin: 02/01/17 21:59 Dose: Not Given Metformin HCl (Glucophage) 500 mg PO BID [facility] Last Admin: 02/01/17 17:57 Dose: 500 mg Rosuvastatin Calcium (Crestor) 20 mg PO HS [facility] Last Admin: 02/01/17 21:30 Dose: 20 mg Sitagliptin Phosphate (Januvia) 100 mg PO DAILY [facility] Last Admin: 02/01/17 10:07 Dose: 100 mg - Labs Labs: 01/30/17 07:17 Assessment and Plan (1) Cellulitis Status: Acute (2) Ankle fracture, bimalleolar, closed Status: Acute (3) Diabetes mellitus type 2 in nonobese Status: Chronic (4) Hypertension Status: Chronic - Assessment and Plan (Free Text) Plan: ON IV CEFEPIME 1GM IVPB Q 12HRLY X 2WEEKS ( STARTED 01/28/17) F/U PO CIPRO 500MG BID X 7 DAYS. CONTINUE iv VANCOMYCIN 1 G EVERY 24 HOURLY. 01/26/17. X 2WEEKS VANCO TROUGH LEVEL WEEKLY X 2 WKS AND KEEP VANC TROUGH BTWEEN 10- 20 MONITOR RENAL FUNCTION CLOSELY. LOCAL WOUND CARE PER WOUND CARE / ORTHO.
[2017-02-02] MEDS: Cefepime IV 1 gm in Dextrose 1 GM/50 ML BAG IVPB SCH ×2 (00:57→13:10)
[2017-02-02 08:31] LABS: BASO # 0.1 K/uL (0.0-0.2); BASO % 0.6 % (0.0-2.0); EOS # 0.4 K/uL (0.0-0.7); EOS % 3.9 % (0.0-4.0); HEMOGLOBIN 12.3 g/dL (11.0-16.0); LYMPH # 2.9 K/uL (1.0-4.3); LYMPH % 28.3 % (20.0-40.0); MEAN CELL VOLUME 86.5 fL (81.0-99.0); MEAN CORPUSCULAR HEMOGLOBIN 27.7 pg (27.0-31.0); MEAN CORPUSCULAR HGB CONC 32.1 g/dL (33.0-37.0); MEAN PLATELET VOLUME 8.9 fL (7.2-11.7); MONO # 0.7 K/uL (0.0-0.8); MONO % 6.5 % (0.0-10.0); NEUT # 6.2 K/uL (1.8-7.0); NEUT % 60.7 % (50.0-75.0); NRBC % 0.1 % (0.0-2.0); RBC 4.42 Mil/uL (3.80-5.20); RED CELL DISTRIBUTION WIDTH 14.2 % (11.5-14.5); WHITE BLOOD COUNT 10.2 K/uL (4.8-10.8)
[2017-02-02] MEDS: (Novolog) Insulin Aspart, Recombinant 100 u/ml 10 ml vial SC SCH ×4 (08:32→21:49)
[2017-02-02 09:04] LABS: GFR AFRICAN-AMERICAN > 60; GFR NON-AFRICAN AMERICAN > 60
[2017-02-02 09:06] LABS: BLOOD UREA NITROGEN 11 mg/dL (7-17); CALCIUM 9.3 mg/dl (8.6-10.4)
--- NOTE | 2017-02-02 10:51 | CP.PCM.PN ---
Subjective - Date & Time of Evaluation Date of Evaluation: 02/02/17 Time of Evaluation: 10:48 - Subjective Subjective: Patient states she does not have any pain in her ankle. Denies CP/SOB/dizziness. Objective - Vital Signs/Intake and Output Vital Signs (last 24 hours): Temp Pulse Resp BP Pulse Ox 97.7 F 69 20 129/76 96 02/02/17 00:00 02/02/17 00:00 02/02/17 00:00 02/02/17 00:00 02/02/17 00:00 Intake and Output: 02/02/17 02/02/17 06:59 18:59 Intake Total 50 Balance 50 - Medications Medications: Current Medications Amlodipine Besylate (Norvasc) 5 mg PO DAILY [facility] Last Admin: 02/01/17 10:08 Dose: 5 mg Celecoxib (Celebrex) 200 mg PO DAILY [facility] Last Admin: 02/01/17 10:08 Dose: 200 mg Collagenase (Santyl) 0 gm TOP DAILY [facility] Last Admin: 02/01/17 10:08 Dose: 1 applic Docusate Sodium (Colace) 100 mg PO BID [facility] Last Admin: 02/01/17 17:58 Dose: 100 mg Donepezil HCl (Aricept) 5 mg PO HS [facility] Last Admin: 02/01/17 21:29 Dose: 5 mg Enoxaparin Sodium (Lovenox) 40 mg SC DAILY [facility] Last Admin: 02/01/17 10:35 Dose: 40 mg Famotidine (Pepcid) 40 mg PO DAILY [facility] Last Admin: 02/01/17 10:07 Dose: 40 mg Vancomycin HCl 1 gm/ Sodium (Chloride) 250 mls @ 166.7 mls/hr IVPB Q24H [facility] Cefepime HCl (Maxipime Iv 1 Gm Premix) 1 gm in 50 mls @ 100 mls/hr IVPB Q12H [facility] Last Admin: 02/02/17 00:57 Dose: 100 mls/hr Insulin Aspart (Novolog) 0 unit SC ACHS [facility] PRN Reason: Protocol Last Admin: 02/02/17 08:32 Dose: Not Given Metformin HCl (Glucophage) 500 mg PO BID [facility] Last Admin: 02/01/17 17:57 Dose: 500 mg Rosuvastatin Calcium (Crestor) 20 mg PO HS [facility] Last Admin: 07/04/17 21:30 Dose: 20 mg Sitagliptin Phosphate (Januvia) 100 mg PO DAILY [facility] Last Admin: 02/01/17 10:07 Dose: 100 mg - Labs Labs: 02/02/17 08:20 02/02/17 08:20 - Extremities Exam Additional comments: Right ankle: wound continues to decrease in size. much less fibrinous exudate today, cleaned with sterile gauze and saline and santyl applied. 3mm lesion proximal to large wound is now healed. No bone or hardware exposed. No erythema. Assessment and Plan (1) Wound infection after surgery Assessment & Plan: improving daily PICC in place, abx per ID PT/OT encourage ROM ankle VTE proph d/w Dr. Brand, agrees with above Status: Acute (2) Right ankle swelling Status: Acute
[2017-02-02] MEDS: Collagenase 250 Units/gm Ointment(30 gm) TOP SCH (10:53)
[2017-02-02] MEDS: Enoxaparin 40 mg Syringe SC SCH (10:54)
--- NOTE | 2017-02-02 12:52 | CP.PCM.CON ---
History of Present Illness - History of Present Illness History of Present Illness: This is a bob of 77 year old female currently admitted for infection of the right medial ankle. Patient recently had surgery at [facility] 11/30 16. Has hx of fall and hx of ORIF surgery. Patient referred by Dr. Bonilla for comanagement of dementia and periods of increasing confusion. Patient is on Aricept 5 mg po hs and denies having memory problems. Patient also noted to have UTI. Patient is calm and cooperative when seen and no behavioral issues noted. Psych hx- hx of dementia Drug and alcohol hx- denies any Psychosocial hx- patient lives with a friend. Medical Hx- hx of right ankle infection, vertigo, HTN, hx of right ankle fracture, DM MSE_ elderly female, seen in her room, alert and verbal, Oriented x 3. Still forgetful. Affect is reactive. Speech is spontaneous. Mood is calm. TP- forgetful. TC- no si or hi. no psychosis. Atention/Memory- limited. Insight and Judgment fair. Impulse control fair. Review of Systems - Review of Systems Systems not reviewed;Unavailable: Dementia - Constitutional Constitutional: Weakness - EENT Additional comments: no headache, no blurring of vision - Breasts Additional comments: no dyspnea - Respiratory Additional comments: no palpitations - Gastrointestinal Additional comments: appettie is fair, no abdominal pain - Reproductive: Female Additional comments: no dysuria - Musculoskeletal Additional comments: feels weak - Psychiatric Psychiatric: Confusion Past Patient History - Infectious Disease Hx of Infectious Diseases: None - Past Medical History & Family History Past Medical History?: Yes - Past Social History Smoking Status: Never Smoked - CARDIAC Hx Hypercholesterolemia: Yes Hx Hypertension: Yes - PULMONARY Hx Respiratory Disorders: No - NEUROLOGICAL Hx Neurological Disorder: No - HEENT Hx HEENT Problems: No - RENAL Hx Chronic Kidney Disease: No - ENDOCRINE/METABOLIC Hx Endocrine Disorders: No - HEMATOLOGICAL/ONCOLOGICAL Hx Blood Disorders: Yes Hx Cancer: Yes (BREAST) - INTEGUMENTARY Hx Dermatological Problems: No - MUSCULOSKELETAL/RHEUMATOLOGICAL Hx Arthritis: Yes (KNEES, BACK) - GASTROINTESTINAL Hx Gastrointestinal Disorders: No - GENITOURINARY/GYNECOLOGICAL Hx Genitourinary Disorders: No - PSYCHIATRIC Hx Substance Use: No - SURGICAL HISTORY Hx Surgeries: Yes Hx Section: Yes Hx Mastectomy: Yes (LEFT) - ANESTHESIA Hx Anesthesia: No Meds Allergies/Adverse Reactions: Allergies Allergy/AdvReac Type Severity Reaction Status Date / Time No Known Allergies Allergy Verified 11/14/16 12:17 - Medications Medications: Current Medications Amlodipine Besylate (Norvasc) 5 mg PO DAILY [facility] Last Admin: 02/02/17 10:53 Dose: 5 mg Celecoxib (Celebrex) 200 mg PO DAILY [facility] Last Admin: 02/02/17 10:54 Dose: 200 mg Collagenase (Santyl) 0 gm TOP DAILY [facility] Last Admin: 02/02/17 10:53 Dose: 1 applic Docusate Sodium (Colace) 100 mg PO BID [facility] Last Admin: 02/02/17 10:53 Dose: 100 mg Donepezil HCl (Aricept) 5 mg PO HS [facility] Last Admin: 02/01/17 21:29 Dose: 5 mg Enoxaparin Sodium (Lovenox) 40 mg SC DAILY [facility] Last Admin: 02/02/17 10:54 Dose: 40 mg Famotidine (Pepcid) 40 mg PO DAILY [facility] Last Admin: 02/02/17 10:54 Dose: 40 mg Vancomycin HCl 1 gm/ Sodium (Chloride) 250 mls @ 166.7 mls/hr IVPB Q24H [facility] Cefepime HCl (Maxipime Iv 1 Gm Premix) 1 gm in 50 mls @ 100 mls/hr IVPB Q12H [facility] Last Admin: 02/02/17 00:57 Dose: 100 mls/hr Insulin Aspart (Novolog) 0 unit SC ACHS [facility] PRN Reason: Protocol Last Admin: 02/02/17 08:32 Dose: Not Given Metformin HCl (Glucophage) 500 mg PO BID [facility] Last Admin: 02/02/17 10:54 Dose: 500 mg Rosuvastatin Calcium (Crestor) 20 mg PO HS [facility] Last Admin: 02/01/17 21:30 Dose: 20 mg Sitagliptin Phosphate (Januvia) 100 mg PO DAILY [facility] Last Admin: 02/02/17 10:53 Dose: 100 mg Results - Vital Signs Recent Vital Signs: Last Vital Signs Temp 97.9 F 02/02/17 08:00 Pulse 60 02/02/17 08:00 Resp 20 02/02/17 08:00 BP 146/65 02/02/17 08:00 Pulse Ox 96 02/02/17 08:00 - Labs Result Diagrams: 02/02/17 08:20 02/02/17 08:20 Labs: Laboratory Results - last 24 hr 01/29/17 02/01/17 02/01/17 16:23 16:41 21:14 WBC RBC Hgb Hct MCV MCH MCHC RDW Plt Count MPV Neut % (Auto) Lymph % (Auto) [place] % (Auto) Eos % (Auto) Baso % (Auto) Neut # Lymph # [place] # Eos # Baso # Sodium Potassium Chloride Carbon Dioxide Anion Gap BUN Creatinine Est GFR ( Amer) Est GFR (Non-Af Amer) POC Glucose (mg/dL) 188 H 117 H 154 H Random Glucose Calcium 02/02/17 02/02/17 02/02/17 07:20 08:20 08:20 WBC 10.2 RBC 4.42 Hgb 12.3 Hct 38.3 MCV 86.5 MCH 27.7 MCHC 32.1 L RDW 14.2 Plt Count 427 H MPV 8.9 Neut % (Auto) 60.7 Lymph % (Auto) 28.3 [place] % (Auto) 6.5 Eos % (Auto) 3.9 Baso % (Auto) 0.6 Neut # 6.2 Lymph # 2.9 Trimble # 0.7 Eos # 0.4 Baso # 0.1 Sodium 141 Potassium 4.7 Chloride 103 Carbon Dioxide 26 Anion Gap 16 BUN 11 Creatinine 0.7 Est GFR ( Amer) > 60 Est GFR (Non-Af Amer) > 60 POC Glucose (mg/dL) 127 H Random Glucose 117 H Calcium 9.3 Assessment & Plan - Assessment and Plan (Free Text) Assessment: Hx of dementia with mood changes Metabolic encephalopathy Delirium Right ankle infection UTI, DM Plan: Continue Aricept 5 mg po hs for dementia Continue antibiotics as ordered. No need to add psych meds for now. - Date & Time Date: 02/02/17 Time: 13:04
--- NOTE | 2017-02-02 13:07 | CP.PCM.PN ---
Subjective - Date & Time of Evaluation Date of Evaluation: 02/02/17 Time of Evaluation: 13:06 - Subjective Subjective: CHIEF COMPLAINTS TODAY : afebrile, C/O SLEEPINESS ON IV ABX. SEEN BY PSYCHIATRY ROS. HEENT : N. Resp : No cough, wheezing ,pleuritic CP ,or hemoptysis Cardio : No anginal CP, PND, orthopnea, palpitation GI : No abd.pain, n/v ,diarrhea or GI bleeding . FORENSIC ACCOUNTANT : No headache, vertigo, focal deficit. Musculoskel : No joint swelling , Derm : No rash Psych : Normal affect. Ext : No swelling ,calf pain RT FOOT/ANKLE IN DRESSING. PE. Pt. is alert awake in no distress. V.S As noted in the chart Head ,ear nose,throat and eyes : Normal. Neck : Supple with normal carotids. Lungs: Clear air entry. Heart : S1 & S2 normal with S4. No murmur. Abd : Soft non tender with normal bowel sounds. Neuro : Moves all ext. with no localized deficit. Ext : LESS edema with intact pulses.Non tender calves RT FOOT/ANKLE IN DRESSING. DECREASING CELLULITUS/DRAINAGE Derm : No rashes or decubitus ulcer. LABS/RADIOLOGY: REVIEWED. Objective - Vital Signs/Intake and Output Vital Signs (last 24 hours): Temp Pulse Resp BP Pulse Ox 97.9 F 60 20 146/65 96 02/02/17 08:00 02/02/17 08:00 02/02/17 08:00 02/02/17 08:00 02/02/17 08:00 Intake and Output: 02/02/17 02/02/17 06:59 18:59 Intake Total 50 Balance 50 - Medications Medications: Current Medications Amlodipine Besylate (Norvasc) 5 mg PO DAILY [facility] Last Admin: 02/02/17 10:53 Dose: 5 mg Celecoxib (Celebrex) 200 mg PO DAILY [facility] Last Admin: 02/02/17 10:54 Dose: 200 mg Collagenase (Santyl) 0 gm TOP DAILY [facility] Last Admin: 02/02/17 10:53 Dose: 1 applic Docusate Sodium (Colace) 100 mg PO BID [facility] Last Admin: 02/02/17 10:53 Dose: 100 mg Donepezil HCl (Aricept) 5 mg PO HS [facility] Last Admin: 02/01/17 21:29 Dose: 5 mg Enoxaparin Sodium (Lovenox) 40 mg SC DAILY [facility] Last Admin: 02/02/17 10:54 Dose: 40 mg Famotidine (Pepcid) 40 mg PO DAILY [facility] Last Admin: 02/02/17 10:54 Dose: 40 mg Vancomycin HCl 1 gm/ Sodium (Chloride) 250 mls @ 166.7 mls/hr IVPB Q24H [facility] Cefepime HCl (Maxipime Iv 1 Gm Premix) 1 gm in 50 mls @ 100 mls/hr IVPB Q12H [facility] Last Admin: 02/02/17 00:57 Dose: 100 mls/hr Insulin Aspart (Novolog) 0 unit SC ACHS [facility] PRN Reason: Protocol Last Admin: 02/02/17 08:32 Dose: Not Given Metformin HCl (Glucophage) 500 mg PO BID [facility] Last Admin: 02/02/17 10:54 Dose: 500 mg Rosuvastatin Calcium (Crestor) 20 mg PO HS [facility] Last Admin: 02/01/17 21:30 Dose: 20 mg Sitagliptin Phosphate (Januvia) 100 mg PO DAILY [facility] Last Admin: 02/02/17 10:53 Dose: 100 mg - Labs Labs: 02/02/17 08:20 02/02/17 08:20 Assessment and Plan (1) Cellulitis Status: Acute (2) Ankle fracture, bimalleolar, closed Status: Acute (3) Diabetes mellitus type 2 in nonobese Status: Chronic (4) Hypertension Status: Chronic - Assessment and Plan (Free Text) Plan: ON IV CEFEPIME 1GM IVPB Q 12HRLY X 2WEEKS ( STARTED 01/28/17) F/U PO CIPRO 500MG BID X 7 DAYS. CONTINUE iv VANCOMYCIN 1 G EVERY 24 HOURLY. 01/26/17. X 2WEEKS VANCO TROUGH LEVEL WEEKLY X 2 WKS AND KEEP VANC TROUGH BTWEEN 10- 20 MONITOR RENAL FUNCTION CLOSELY. LOCAL WOUND CARE PER WOUND CARE / ORTHO.
--- NOTE | 2017-02-02 22:32 | CP.PCM.PN ---
Subjective - Date & Time of Evaluation Date of Evaluation: 02/02/17 Time of Evaluation: 20:10 - Subjective Subjective: Pt is afebrile, waiting for KATHIE placement, left foot wound is improving,post op Objective - Vital Signs/Intake and Output Vital Signs (last 24 hours): Temp Pulse Resp BP Pulse Ox 97 F L 72 20 120/64 96 02/02/17 15:00 02/02/17 15:00 02/02/17 15:00 02/02/17 15:00 02/02/17 15:00 Intake and Output: 02/02/17 02/03/17 18:59 06:59 Intake Total 780 Balance 780 - Medications Medications: Current Medications Amlodipine Besylate (Norvasc) 5 mg PO DAILY [facility] Last Admin: 02/02/17 10:53 Dose: 5 mg Celecoxib (Celebrex) 200 mg PO DAILY [facility] Last Admin: 02/02/17 10:54 Dose: 200 mg Collagenase (Santyl) 0 gm TOP DAILY [facility] Last Admin: 02/02/17 10:53 Dose: 1 applic Docusate Sodium (Colace) 100 mg PO BID [facility] Last Admin: 02/02/17 17:20 Dose: 100 mg Donepezil HCl (Aricept) 5 mg PO HS [facility] Last Admin: 02/02/17 22:03 Dose: 5 mg Enoxaparin Sodium (Lovenox) 40 mg SC DAILY [facility] Last Admin: 02/02/17 10:54 Dose: 40 mg Famotidine (Pepcid) 40 mg PO DAILY [facility] Last Admin: 02/02/17 10:54 Dose: 40 mg Vancomycin HCl 1 gm/ Sodium (Chloride) 250 mls @ 166.7 mls/hr IVPB Q24H [facility] Last Admin: 02/02/17 14:40 Dose: 166.7 mls/hr Cefepime HCl (Maxipime Iv 1 Gm Premix) 1 gm in 50 mls @ 100 mls/hr IVPB Q12H [facility] Last Admin: 02/02/17 13:10 Dose: 100 mls/hr Insulin Aspart (Novolog) 0 unit SC ACHS [facility] PRN Reason: Protocol Last Admin: 02/02/17 21:49 Dose: Not Given Metformin HCl (Glucophage) 500 mg PO BID [facility] Last Admin: 02/02/17 17:20 Dose: 500 mg Rosuvastatin Calcium (Crestor) 20 mg PO HS [facility] Last Admin: 02/02/17 22:03 Dose: 20 mg Sitagliptin Phosphate (Januvia) 100 mg PO DAILY [facility] Last Admin: 02/02/17 10:53 Dose: 100 mg - Labs Labs: 02/02/17 08:20 02/02/17 08:20 - Constitutional Appears: No Acute Distress - Head Exam Head Exam: ATRAUMATIC, NORMAL INSPECTION, NORMOCEPHALIC - Eye Exam Eye Exam: EOMI, Normal appearance, PERRL Pupil Exam: NORMAL ACCOMODATION, PERRL - Respiratory Exam Respiratory Exam: Clear to Ausculation Bilateral, NORMAL BREATHING PATTERN - Cardiovascular Exam Cardiovascular Exam: REGULAR RHYTHM, +S1, +S2. absent: Murmur - GI/Abdominal Exam GI & Abdominal Exam: Soft, Normal Bowel Sounds. absent: Tenderness - Back Exam Back Exam: NORMAL INSPECTION - Neurological Exam Neurological Exam: Alert, Awake, CN II-XII Intact, Normal Gait, Oriented x3 - Psychiatric Exam Psychiatric exam: Normal Affect, Normal Mood - Skin Skin Exam: Dry, Intact, Normal Color, Warm Assessment and Plan (1) Cellulitis Status: Acute (2) Diabetes mellitus type 2 in nonobese Status: Chronic (3) Hypertension Status: Chronic
[2017-02-03] MEDS: Cefepime IV 1 gm in Dextrose 1 GM/50 ML BAG IVPB SCH ×2 (00:42→12:48)
[2017-02-03] MEDS: (Novolog) Insulin Aspart, Recombinant 100 u/ml 10 ml vial SC SCH ×4 (08:30→22:15)
[2017-02-03] MEDS: Enoxaparin 40 mg Syringe SC SCH (09:41)
[2017-02-03] MEDS: Collagenase 250 Units/gm Ointment(30 gm) TOP SCH (09:44)
--- NOTE | 2017-02-03 12:57 | CP.PCM.PN ---
Subjective - Date & Time of Evaluation Date of Evaluation: 02/03/17 Time of Evaluation: 12:57 - Subjective Subjective: Patient states she has no pain in her ankle. No new complaints. Objective - Vital Signs/Intake and Output Vital Signs (last 24 hours): Temp Pulse Resp BP Pulse Ox 97.0 F L 63 20 164/72 H 96 02/03/17 09:05 02/03/17 09:05 02/03/17 09:05 02/03/17 09:05 02/03/17 09:05 Intake and Output: 02/03/17 02/03/17 06:59 18:59 Intake Total 480 Balance 480 - Medications Medications: Current Medications Amlodipine Besylate (Norvasc) 5 mg PO DAILY [facility] Last Admin: 02/03/17 09:42 Dose: 5 mg Celecoxib (Celebrex) 200 mg PO DAILY [facility] Last Admin: 02/03/17 09:42 Dose: 200 mg Collagenase (Santyl) 0 gm TOP DAILY [facility] Last Admin: 02/03/17 09:44 Dose: 1 applic Docusate Sodium (Colace) 100 mg PO BID [facility] Last Admin: 02/03/17 09:42 Dose: 100 mg Donepezil HCl (Aricept) 5 mg PO HS [facility] Last Admin: 02/02/17 22:03 Dose: 5 mg Famotidine (Pepcid) 40 mg PO DAILY [facility] Last Admin: 02/03/17 09:42 Dose: 40 mg Vancomycin HCl 1 gm/ Sodium (Chloride) 250 mls @ 166.7 mls/hr IVPB Q24H [facility] Last Admin: 02/02/17 14:40 Dose: 166.7 mls/hr Cefepime HCl (Maxipime Iv 1 Gm Premix) 1 gm in 50 mls @ 100 mls/hr IVPB Q12H [facility] Last Admin: 02/03/17 00:42 Dose: 100 mls/hr Insulin Aspart (Novolog) 0 unit SC ACHS [facility] PRN Reason: Protocol Last Admin: 02/03/17 08:30 Dose: Not Given Metformin HCl (Glucophage) 500 mg PO BID [facility] Last Admin: 02/03/17 09:42 Dose: 500 mg Rosuvastatin Calcium (Crestor) 20 mg PO HS [facility] Last Admin: 02/02/17 22:03 Dose: 20 mg Sitagliptin Phosphate (Januvia) 100 mg PO DAILY [facility] Last Admin: 02/03/17 09:41 Dose: 100 mg - Labs Labs: 02/02/17 08:20 02/02/17 08:20 - Extremities Exam Additional comments: Right medial ankle wound with slow daily improvement and decreased size. Wound cleaned and santyl reapplied. No surrounding erythema. No swelling. +DP pulse, calves soft Nt neg homans Assessment and Plan (1) Wound infection after surgery Assessment & Plan: improving cont local wound care PICC line placed d/c planning to rehab PT/OT d/w Dr. Brand, agrees with above Status: Acute (2) Right ankle swelling Status: Acute
--- NOTE | 2017-02-03 13:22 | CP.PCM.PN ---
Subjective - Date & Time of Evaluation Date of Evaluation: 02/03/17 Time of Evaluation: 13:22 - Subjective Subjective: CHIEF COMPLAINTS TODAY : afebrile, COMFORTABLE Denies pain right ankle ON IV ABX. ROS. HEENT : N. Resp : No cough, wheezing ,pleuritic CP ,or hemoptysis Cardio : No anginal CP, PND, orthopnea, palpitation GI : No abd.pain, n/v ,diarrhea or GI bleeding . 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 Musculoskel : No joint swelling , Derm : No rash Psych : Normal affect. Ext : No swelling ,calf pain RT FOOT/ANKLE IN DRESSING. PE. Pt. is alert awake in no distress. V.S As noted in the chart Head ,ear nose,throat and eyes : Normal. Neck : Supple with normal carotids. Lungs: Clear air entry. Heart : S1 & S2 normal with S4. No murmur. Abd : Soft non tender with normal bowel sounds. Neuro : Moves all ext. with no localized deficit. Ext : LESS edema with intact pulses.Non tender calves RT FOOT/ANKLE IN DRESSING. DECREASING CELLULITUS/DRAINAGE Derm : No rashes or decubitus ulcer. LABS/RADIOLOGY: REVIEWED. Objective - Vital Signs/Intake and Output Vital Signs (last 24 hours): Temp Pulse Resp BP Pulse Ox 97.0 F L 63 20 164/72 H 96 02/03/17 09:05 02/03/17 09:05 02/03/17 09:05 02/03/17 09:05 02/03/17 09:05 Intake and Output: 02/03/17 02/03/17 06:59 18:59 Intake Total 480 Balance 480 - Medications Medications: Current Medications Amlodipine Besylate (Norvasc) 5 mg PO DAILY [facility] Last Admin: 02/03/17 09:42 Dose: 5 mg Celecoxib (Celebrex) 200 mg PO DAILY [facility] Last Admin: 02/03/17 09:42 Dose: 200 mg Collagenase (Santyl) 0 gm TOP DAILY [facility] Last Admin: 02/03/17 09:44 Dose: 1 applic Docusate Sodium (Colace) 100 mg PO BID [facility] Last Admin: 02/03/17 09:42 Dose: 100 mg Donepezil HCl (Aricept) 5 mg PO HS [facility] Last Admin: 02/02/17 22:03 Dose: 5 mg Famotidine (Pepcid) 40 mg PO DAILY [facility] Last Admin: 02/03/17 09:42 Dose: 40 mg Vancomycin HCl 1 gm/ Sodium (Chloride) 250 mls @ 166.7 mls/hr IVPB Q24H [facility] Last Admin: 02/02/17 14:40 Dose: 166.7 mls/hr Cefepime HCl (Maxipime Iv 1 Gm Premix) 1 gm in 50 mls @ 100 mls/hr IVPB Q12H [facility] Last Admin: 02/03/17 12:48 Dose: 100 mls/hr Insulin Aspart (Novolog) 0 unit SC ACHS [facility] PRN Reason: Protocol Last Admin: 02/03/17 12:30 Dose: Not Given Metformin HCl (Glucophage) 500 mg PO BID [facility] Last Admin: 02/03/17 09:42 Dose: 500 mg Rosuvastatin Calcium (Crestor) 20 mg PO HS [facility] Last Admin: 02/02/17 22:03 Dose: 20 mg Sitagliptin Phosphate (Januvia) 100 mg PO DAILY [facility] Last Admin: 02/03/17 09:41 Dose: 100 mg - Labs Labs: 02/02/17 08:20 02/02/17 08:20 Assessment and Plan (1) Cellulitis Status: Acute (2) Ankle fracture, bimalleolar, closed Status: Acute (3) Diabetes mellitus type 2 in nonobese Status: Chronic (4) Hypertension Status: Chronic - Assessment and Plan (Free Text) Plan: ON IV CEFEPIME 1GM IVPB Q 12HRLY X 2WEEKS ( STARTED 01/28/17) F/U PO CIPRO 500MG BID X 7 DAYS. CONTINUE iv VANCOMYCIN 1 G EVERY 24 HOURLY. 01/26/17. X 2WEEKS VANCO TROUGH LEVEL WEEKLY X 2 WKS AND KEEP VANC TROUGH BTWEEN 10- 20 MONITOR RENAL FUNCTION CLOSELY. LOCAL WOUND CARE PER WOUND CARE / ORTHO.
--- NOTE | 2017-02-03 13:53 | CP.PCM.PN ---
Subjective - Date & Time of Evaluation Date of Evaluation: 02/03/17 Time of Evaluation: 19:05 - Subjective Subjective: Pt seen and examined, pain in left ankle wound improved Objective - Vital Signs/Intake and Output Vital Signs (last 24 hours): Temp Pulse Resp BP Pulse Ox 97.0 F L 63 20 164/72 H 96 02/03/17 09:05 02/03/17 09:05 02/03/17 09:05 02/03/17 09:05 02/03/17 09:05 Intake and Output: 02/03/17 02/03/17 06:59 18:59 Intake Total 480 Balance 480 - Medications Medications: Current Medications Amlodipine Besylate (Norvasc) 5 mg PO DAILY [facility] Last Admin: 02/03/17 09:42 Dose: 5 mg Celecoxib (Celebrex) 200 mg PO DAILY [facility] Last Admin: 02/03/17 09:42 Dose: 200 mg Collagenase (Santyl) 0 gm TOP DAILY [facility] Last Admin: 02/03/17 09:44 Dose: 1 applic Docusate Sodium (Colace) 100 mg PO BID [facility] Last Admin: 02/03/17 09:42 Dose: 100 mg Donepezil HCl (Aricept) 5 mg PO [facility] Last Admin: 02/02/17 22:03 Dose: 5 mg Famotidine (Pepcid) 40 mg PO DAILY [facility] Last Admin: 02/03/17 09:42 Dose: 40 mg Vancomycin HCl 1 gm/ Sodium (Chloride) 250 mls @ 166.7 mls/hr IVPB Q24H [facility] Last Admin: 02/03/17 13:44 Dose: 166.7 mls/hr Cefepime HCl (Maxipime Iv 1 Gm Premix) 1 gm in 50 mls @ 100 mls/hr IVPB Q12H [facility] Last Admin: 02/03/17 12:48 Dose: 100 mls/hr Insulin Aspart (Novolog) 0 unit SC ACHS [facility] PRN Reason: Protocol Last Admin: 02/03/17 12:30 Dose: Not Given Metformin HCl (Glucophage) 500 mg PO BID [facility] Last Admin: 02/03/17 09:42 Dose: 500 mg Rosuvastatin Calcium (Crestor) 20 mg PO HS [facility] Last Admin: 02/02/17 22:03 Dose: 20 mg Sitagliptin Phosphate (Januvia) 100 mg PO DAILY [facility] Last Admin: 02/03/17 09:41 Dose: 100 mg - Labs Labs: 02/02/17 08:20 02/02/17 08:20 - Extremities Exam Additional comments: Right medial ankle wound with slow daily improvement and decreased size. Wound cleaned and santyl reapplied. No surrounding erythema. No swelling. +DP pulse, calves soft Nt neg homans Assessment and Plan (1) Cellulitis Status: Acute (2) Diabetes mellitus type 2 in nonobese Status: Chronic (3) Hypertension Status: Chronic
--- NOTE | 2017-02-03 18:22 | CP.PCM.PN ---
Subjective - Date & Time of Evaluation Date of Evaluation: 02/03/17 Time of Evaluation: 18:18 - Subjective Subjective: Patient seen in her room, still forgetful and wants to go home as she has a 40 yr son who is mentally disabled and she has to care for him. Has 4 sons. Behavior is manageable. Compliant with meds and care. MSE- elderly female, alert and oriented x3. mood calm. affect is reactive. Speech is spontaneous. TP -forgetful TC- pt wants to go home, no si or hi, no psychosis. Attention and Memory limited. Insight and Judgment fair. Impulse control fair. Objective - Vital Signs/Intake and Output Vital Signs (last 24 hours): Temp Pulse Resp BP Pulse Ox 97.3 F L 69 20 147/63 97 02/03/17 15:00 02/03/17 15:00 02/03/17 15:00 02/03/17 15:00 02/03/17 15:00 Intake and Output: 02/03/17 02/03/17 06:59 18:59 Intake Total 480 780 Balance 480 780 - Medications Medications: Current Medications Amlodipine Besylate (Norvasc) 5 mg PO DAILY [facility] Last Admin: 02/03/17 09:42 Dose: 5 mg Celecoxib (Celebrex) 200 mg PO DAILY [facility] Last Admin: 02/03/17 09:42 Dose: 200 mg Collagenase (Santyl) 0 gm TOP DAILY [facility] Last Admin: 02/03/17 09:44 Dose: 1 applic Docusate Sodium (Colace) 100 mg PO BID [facility] Last Admin: 02/03/17 17:26 Dose: 100 mg Donepezil HCl (Aricept) 5 mg PO HS [facility] Last Admin: 02/02/17 22:03 Dose: 5 mg Famotidine (Pepcid) 40 mg PO DAILY [facility] Last Admin: 02/03/17 09:42 Dose: 40 mg Vancomycin HCl 1 gm/ Sodium (Chloride) 250 mls @ 166.7 mls/hr IVPB Q24H [facility] Last Admin: 02/03/17 13:44 Dose: 166.7 mls/hr Cefepime HCl (Maxipime Iv 1 Gm Premix) 1 gm in 50 mls @ 100 mls/hr IVPB Q12H [facility] Last Admin: 02/03/17 12:48 Dose: 100 mls/hr Insulin Aspart (Novolog) 0 unit SC ACHS [facility] PRN Reason: Protocol Last Admin: 02/03/17 17:26 Dose: 2 unit Metformin HCl (Glucophage) 500 mg PO BID [facility] Last Admin: 02/03/17 17:26 Dose: 500 mg Rosuvastatin Calcium (Crestor) 20 mg PO HS [facility] Last Admin: 02/02/17 22:03 Dose: 20 mg Sitagliptin Phosphate (Januvia) 100 mg PO DAILY [facility] Last Admin: 02/03/17 09:41 Dose: 100 mg - Labs Labs: 02/02/17 08:20 02/02/17 08:20 - Constitutional Appears: Well, No Acute Distress - Head Exam Head Exam: NORMOCEPHALIC - Eye Exam Eye Exam: Normal appearance Pupil Exam: NORMAL ACCOMODATION - ENT Exam ENT Exam: Normal Exam - Neck Exam Neck Exam: Normal Inspection - Respiratory Exam Respiratory Exam: NORMAL BREATHING PATTERN - Cardiovascular Exam Additional comments: no palpitations or chest pain - GI/Abdominal Exam Additional comments: eats well - Exam Additional comments: no dysuria - Extremities Exam Additional comments: not complaining of pain, s.p right ankle surgery - Back Exam Additional comments: no back pain - Neurological Exam Neurological Exam: Alert, Oriented x3 - Psychiatric Exam Psychiatric exam: Normal Affect, Normal Mood - Skin Skin Exam: Normal Color Assessment and Plan - Assessment and Plan (Free Text) Assessment: Dementia Delirum S/p right ankle surgery right ankle infection DM, HTN Plan: Continue Aricept for dementia and antibiotics as ordered. Supportive care.
[2017-02-04] MEDS: Cefepime IV 1 gm in Dextrose 1 GM/50 ML BAG IVPB SCH ×2 (01:13→13:43)
[2017-02-04] MEDS: (Novolog) Insulin Aspart, Recombinant 100 u/ml 10 ml vial SC SCH ×3 (07:45→17:01)
[2017-02-04 09:15] VITALS: O2SAT 98
--- NOTE | 2017-02-04 09:36 | CP.PCM.PN ---
Subjective - Date & Time of Evaluation Date of Evaluation: 02/04/17 Time of Evaluation: 09:34 - Subjective Subjective: Patient complains of headache this am. She denies any pain in her ankle. Objective - Vital Signs/Intake and Output Vital Signs (last 24 hours): Temp Pulse Resp BP Pulse Ox 98.1 F 63 20 152/58 H 98 02/04/17 08:00 02/04/17 08:00 02/04/17 08:00 02/04/17 08:00 02/04/17 08:00 Intake and Output: 02/04/17 02/04/17 06:59 18:59 Intake Total 500 200 Balance 500 200 - Medications Medications: Current Medications Amlodipine Besylate (Norvasc) 5 mg PO DAILY [facility] Last Admin: 02/03/17 09:42 Dose: 5 mg Celecoxib (Celebrex) 200 mg PO DAILY [facility] Last Admin: 02/03/17 09:42 Dose: 200 mg Collagenase (Santyl) 0 gm TOP DAILY [facility] Last Admin: 02/03/17 09:44 Dose: 1 applic Docusate Sodium (Colace) 100 mg PO BID [facility] Last Admin: 02/03/17 17:26 Dose: 100 mg Donepezil HCl (Aricept) 5 mg PO [facility] Last Admin: 02/03/17 21:17 Dose: 5 mg Famotidine (Pepcid) 40 mg PO DAILY [facility] Last Admin: 02/03/17 09:42 Dose: 40 mg Vancomycin HCl 1 gm/ Sodium (Chloride) 250 mls @ 166.7 mls/hr IVPB Q24H [facility] Last Admin: 02/03/17 13:44 Dose: 166.7 mls/hr Cefepime HCl (Maxipime Iv 1 Gm Premix) 1 gm in 50 mls @ 100 mls/hr IVPB Q12H [facility] Last Admin: 02/04/17 01:13 Dose: 100 mls/hr Insulin Aspart (Novolog) 0 unit SC ACHS [facility] PRN Reason: Protocol Last Admin: 02/04/17 07:45 Dose: Not Given Metformin HCl (Glucophage) 500 mg PO BID [facility] Last Admin: 02/03/17 17:26 Dose: 500 mg Rosuvastatin Calcium (Crestor) 20 mg PO HS [facility] Last Admin: 02/03/17 21:17 Dose: 20 mg Sitagliptin Phosphate (Januvia) 100 mg PO DAILY [facility] Last Admin: 02/03/17 09:41 Dose: 100 mg - Labs Labs: 02/02/17 08:20 02/02/17 08:20 - Extremities Exam Additional comments: Dressing changed. Continued slow daily improvement. Able to debride a little more fibrinous exudate today with good granulation tissue noted. slowly decreasing in size. No erythema. No swelling. No exposed bone or hardware. Improving ROM of ankle, encouraged. +Dp/PT pulses, calves soft NT neg homans Assessment and Plan (1) Wound infection after surgery Assessment & Plan: Daily wound care with santyl PT/OT encourage OOB to chair VTE proph improving cont antibiotics as per ID d/w Dr. Brand, agrees with above patient will need to f/u Dr. Granados/Sunday within one week of discharge Status: Acute (2) Right ankle swelling Status: Acute
[2017-02-04] MEDS: Collagenase 250 Units/gm Ointment(30 gm) TOP SCH (09:37)
--- NOTE | 2017-02-04 12:13 | CP.PCM.PN ---
Subjective - Date & Time of Evaluation Date of Evaluation: 02/04/17 Time of Evaluation: 12:13 - Subjective Subjective: CHIEF COMPLAINTS TODAY : afebrile, COMFORTABLE Denies pain right ankle ON IV ABX. ROS. HEENT : N. Resp : No cough, wheezing ,pleuritic CP ,or hemoptysis Cardio : No anginal CP, PND, orthopnea, palpitation GI : No abd.pain, n/v ,diarrhea or GI bleeding . 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 Musculoskel : No joint swelling , Derm : No rash Psych : Normal affect. Ext : No swelling ,calf pain RT FOOT/ANKLE IN DRESSING. PE. Pt. is alert awake in no distress. V.S As noted in the chart Head ,ear nose,throat and eyes : Normal. Neck : Supple with normal carotids. Lungs: Clear air entry. Heart : S1 & S2 normal with S4. No murmur. Abd : Soft non tender with normal bowel sounds. Neuro : Moves all ext. with no localized deficit. Ext : LESS edema with intact pulses.Non tender calves RT FOOT/ANKLE IN DRESSING. DECREASING CELLULITUS/DRAINAGE Derm : No rashes or decubitus ulcer. LABS/RADIOLOGY: REVIEWED. Objective - Vital Signs/Intake and Output Vital Signs (last 24 hours): Temp Pulse Resp BP Pulse Ox 98.1 F 63 20 152/58 H 98 02/04/17 08:00 02/04/17 08:00 02/04/17 08:00 02/04/17 08:00 02/04/17 08:00 Intake and Output: 02/04/17 02/04/17 06:59 18:59 Intake Total 500 200 Balance 500 200 - Medications Medications: Current Medications Amlodipine Besylate (Norvasc) 5 mg PO DAILY [facility] Last Admin: 02/04/17 09:36 Dose: 5 mg Celecoxib (Celebrex) 200 mg PO DAILY [facility] Last Admin: 02/04/17 09:36 Dose: 200 mg Collagenase (Santyl) 0 gm TOP DAILY [facility] Last Admin: 02/04/17 09:37 Dose: 1 applic Docusate Sodium (Colace) 100 mg PO BID [facility] Last Admin: 02/04/17 09:36 Dose: 100 mg Donepezil HCl (Aricept) 5 mg PO HS [facility] Last Admin: 02/03/17 21:17 Dose: 5 mg Famotidine (Pepcid) 40 mg PO DAILY [facility] Last Admin: 02/04/17 09:36 Dose: 40 mg Vancomycin HCl 1 gm/ Sodium (Chloride) 250 mls @ 166.7 mls/hr IVPB Q24H [facility] Last Admin: 02/03/17 13:44 Dose: 166.7 mls/hr Cefepime HCl (Maxipime Iv 1 Gm Premix) 1 gm in 50 mls @ 100 mls/hr IVPB Q12H [facility] Last Admin: 02/04/17 01:13 Dose: 100 mls/hr Insulin Aspart (Novolog) 0 unit SC ACHS [facility] PRN Reason: Protocol Last Admin: 02/04/17 11:49 Dose: 3 unit Metformin HCl (Glucophage) 500 mg PO BID [facility] Last Admin: 02/04/17 09:36 Dose: 500 mg Rosuvastatin Calcium (Crestor) 20 mg PO HS [facility] Last Admin: 02/03/17 21:17 Dose: 20 mg Sitagliptin Phosphate (Januvia) 100 mg PO DAILY [facility] Last Admin: 02/04/17 09:40 Dose: 100 mg - Labs Labs: 02/02/17 08:20 02/02/17 08:20 Assessment and Plan (1) Cellulitis Assessment & Plan: ON IV CEFEPIME 1GM IVPB Q 12HRLY X 2WEEKS ( STARTED 01/28/17) F/U PO CIPRO 500MG BID X 7 DAYS. CONTINUE iv VANCOMYCIN 1 G EVERY 24 HOURLY. 01/26/17. X 2WEEKS VANCO TROUGH LEVEL WEEKLY X 2 WKS AND KEEP VANC TROUGH BTWEEN 10- 20 MONITOR RENAL FUNCTION CLOSELY. LOCAL WOUND CARE PER WOUND CARE / ORTHO. PT FOR DC TODAY TO REHAB,WILL BE F/U BY PMD . CASE DISCUSSED WITH COOK CANDY MS. STRONG. Status: Acute (2) Ankle fracture, bimalleolar, closed Status: Acute (3) Diabetes mellitus type 2 in nonobese Status: Chronic (4) Hypertension Status: Chronic
--- NOTE | 2017-02-04 13:02 | CP.PCM.PN ---
Subjective - Date & Time of Evaluation Date of Evaluation: 02/04/17 Time of Evaluation: 13:00 - Subjective Subjective: Patient seen today and wants to go home but staff reprots she might need to go for [facility] for continued IV antibiotic tx for her right ankle infection. Still forgetful. MSE- elderly female, oriented x 3 casually dressed, speech is spontaneous. affect is reactive. Mood is calm. TP- forgetful. TC- no si or hi, no psychosis Attention and memory limited. Insight and Judgment limited. Fair impulse control. Objective - Vital Signs/Intake and Output Vital Signs (last 24 hours): Temp Pulse Resp BP Pulse Ox 98.1 F 63 20 152/58 H 98 02/04/17 08:00 02/04/17 08:00 02/04/17 08:00 02/04/17 08:00 02/04/17 08:00 Intake and Output: 02/04/17 02/04/17 06:59 18:59 Intake Total 500 200 Balance 500 200 - Medications Medications: Current Medications Amlodipine Besylate (Norvasc) 5 mg PO DAILY [facility] Last Admin: 02/04/17 09:36 Dose: 5 mg Celecoxib (Celebrex) 200 mg PO DAILY [facility] Last Admin: 02/04/17 09:36 Dose: 200 mg Collagenase (Santyl) 0 gm TOP DAILY [facility] Last Admin: 02/04/17 09:37 Dose: 1 applic Docusate Sodium (Colace) 100 mg PO BID [facility] Last Admin: 02/04/17 09:36 Dose: 100 mg Donepezil HCl (Aricept) 5 mg PO HS [facility] Last Admin: 02/03/17 21:17 Dose: 5 mg Famotidine (Pepcid) 40 mg PO DAILY [facility] Last Admin: 02/04/17 09:36 Dose: 40 mg Vancomycin HCl 1 gm/ Sodium (Chloride) 250 mls @ 166.7 mls/hr IVPB Q24H [facility] Last Admin: 02/03/17 13:44 Dose: 166.7 mls/hr Cefepime HCl (Maxipime Iv 1 Gm Premix) 1 gm in 50 mls @ 100 mls/hr IVPB Q12H [facility] Last Admin: 02/04/17 01:13 Dose: 100 mls/hr Insulin Aspart (Novolog) 0 unit SC ACHS [facility] PRN Reason: Protocol Last Admin: 02/04/17 11:49 Dose: 3 unit Metformin HCl (Glucophage) 500 mg PO BID [facility] Last Admin: 02/04/17 09:36 Dose: 500 mg Rosuvastatin Calcium (Crestor) 20 mg PO HS [facility] Last Admin: 02/03/17 21:17 Dose: 20 mg Sitagliptin Phosphate (Januvia) 100 mg PO DAILY [facility] Last Admin: 02/04/17 09:40 Dose: 100 mg - Labs Labs: 02/02/17 08:20 02/02/17 08:20 - Constitutional Appears: Well, No Acute Distress - Head Exam Head Exam: NORMOCEPHALIC - Eye Exam Eye Exam: Normal appearance Pupil Exam: NORMAL ACCOMODATION - ENT Exam ENT Exam: Normal Exam - Neck Exam Neck Exam: Full ROM - Respiratory Exam Respiratory Exam: NORMAL BREATHING PATTERN - Cardiovascular Exam Cardiovascular Exam: REGULAR RHYTHM - GI/Abdominal Exam Additional comments: eats well - Extremities Exam Additional comments: has mild right ankle pain but walking better - Back Exam Back Exam: NORMAL INSPECTION - Neurological Exam Neurological Exam: Alert, Awake, Oriented x3 - Psychiatric Exam Psychiatric exam: Anxious, Normal Affect - Skin Skin Exam: Normal Color Assessment and Plan - Assessment and Plan (Free Text) Assessment: Dementia right ankle infection DM, HTN Plan: Continue antibiotics and Aricept as ordered. Psych stable to go for [facility].
[2017-02-04 14:18] LABS: BASO % 0.5 % (0.0-2.0); EOS # 0.3 K/uL (0.0-0.7); EOS % 3.4 % (0.0-4.0); HEMOGLOBIN 11.3 g/dL (11.0-16.0); LYMPH # 1.8 K/uL (1.0-4.3); LYMPH % 20.4 % (20.0-40.0); MEAN CELL VOLUME 86.4 fL (81.0-99.0); MEAN CORPUSCULAR HEMOGLOBIN 27.9 pg (27.0-31.0); MEAN CORPUSCULAR HGB CONC 32.3 g/dL (33.0-37.0); MEAN PLATELET VOLUME 8.6 fL (7.2-11.7); MONO # 0.8 K/uL (0.0-0.8); MONO % 8.7 % (0.0-10.0); NEUT # 5.9 K/uL (1.8-7.0); RBC 4.06 Mil/uL (3.80-5.20); RED CELL DISTRIBUTION WIDTH 14.4 % (11.5-14.5); WHITE BLOOD COUNT 8.8 K/uL (4.8-10.8)
[2017-02-04 14:28] LABS: BLOOD UREA NITROGEN 13 mg/dL (7-17); GFR AFRICAN-AMERICAN > 60; GFR NON-AFRICAN AMERICAN > 60
--- NOTE | 2017-02-04 16:01 | CP.PCM.PN ---
Subjective - Date & Time of Evaluation Date of Evaluation: 02/04/17 Time of Evaluation: 11:40 - Subjective Subjective: Pt seen and examined today , states leg pain improved , denies any abdominal pain, N/V/D A FEBRILE Objective - Vital Signs/Intake and Output Vital Signs (last 24 hours): Temp Pulse Resp BP Pulse Ox 98.1 F 63 20 152/58 H 98 02/04/17 08:00 02/04/17 08:00 02/04/17 08:00 02/04/17 08:00 02/04/17 08:00 Intake and Output: 02/04/17 02/04/17 06:59 18:59 Intake Total 500 620 Balance 500 620 - Medications Medications: Current Medications Amlodipine Besylate (Norvasc) 5 mg PO DAILY [facility] Last Admin: 02/04/17 09:36 Dose: 5 mg Celecoxib (Celebrex) 200 mg PO DAILY [facility] Last Admin: 02/04/17 09:36 Dose: 200 mg Collagenase (Santyl) 0 gm TOP DAILY [facility] Last Admin: 02/04/17 09:37 Dose: 1 applic Docusate Sodium (Colace) 100 mg PO BID [facility] Last Admin: 02/04/17 09:36 Dose: 100 mg Donepezil HCl (Aricept) 5 mg PO HS [facility] Last Admin: 02/03/17 21:17 Dose: 5 mg Famotidine (Pepcid) 40 mg PO DAILY [facility] Last Admin: 02/04/17 09:36 Dose: 40 mg Vancomycin HCl 1 gm/ Sodium (Chloride) 250 mls @ 166.7 mls/hr IVPB Q24H [facility] Last Admin: 02/04/17 14:55 Dose: 166.7 mls/hr Cefepime HCl (Maxipime Iv 1 Gm Premix) 1 gm in 50 mls @ 100 mls/hr IVPB Q12H [facility] Last Admin: 02/04/17 13:43 Dose: 100 mls/hr Insulin Aspart (Novolog) 0 unit SC ACHS [facility] PRN Reason: Protocol Last Admin: 02/04/17 11:49 Dose: 3 unit Metformin HCl (Glucophage) 500 mg PO BID [facility] Last Admin: 02/04/17 09:36 Dose: 500 mg Rosuvastatin Calcium (Crestor) 20 mg PO HS [facility] Last Admin: 02/03/17 21:17 Dose: 20 mg Sitagliptin Phosphate (Januvia) 100 mg PO DAILY [facility] Last Admin: 02/04/17 09:40 Dose: 100 mg - Labs Labs: 02/04/17 14:11 02/04/17 14:11 - Constitutional Appears: Well, No Acute Distress - ENT Exam ENT Exam: Mucous Membranes Moist - Respiratory Exam Respiratory Exam: Clear to Ausculation Bilateral, NORMAL BREATHING PATTERN - Cardiovascular Exam Cardiovascular Exam: REGULAR RHYTHM, +S1, +S2 - Extremities Exam Extremities Exam: Full ROM, Joint Swelling (R foot ) Assessment and Plan - Assessment and Plan (Free Text) Assessment: A/P 77 yr old female with PMHX of diabetes mellitus, hypertension, hypercholesterolemia, arthritis admitted for infected ulcer on the right medial ankle. wound culture- psuedomonus,/coynobacter - and treated with cefepime and vanco Bone scan -- negative for OM Pt accepted at [facility] for IV antibiotics D/w with Dr. Chase, cleared for discharge to [facility] from ID standpoint and continue antibiotics for 1 more week D/w with Dr. Bonilla, cleared for discharge to [facility] and Dr. Bonilla with follow the patient at [facility] Discharge plan discussed with patient and significant , who understands and agrees with plan
[2017-02-04 16:55] VITALS: BP 159/63; PULSE 71; TEMP 98.2
--- NOTE | 2017-02-05 00:37 | CP.PCM.DIS ---
Provider - Provider Date of Admission: 01/26/17 13:08 Attending physician: Celso Bonilla MD Time Spent in preparation of Discharge (in minutes): 34 Diagnosis - Discharge Diagnosis (1) Cellulitis Status: Acute (2) Diabetes mellitus type 2 in nonobese Status: Chronic (3) Hypertension Status: Chronic Hospital Course - Lab Results Lab Results: Micro Results 01/29/17 20:00 Urine Urine Culture - Final No Growth (<1,000 CFU/ML) 01/26/17 Unknown Leg - Right Gram Stain - Final 01/26/17 Unknown Leg - Right Wound Culture - Final Pseudomonas Aeruginosa Corynebacterium Species Most Recent Lab Values WBC 8.8 K/uL (4.8-10.8) 02/04/17 14:11 RBC 4.06 Mil/uL (3.80-5.20) 02/04/17 14:11 Hgb 11.3 g/dL (11.0-16.0) 02/04/17 14:11 Hct 35.1 % (34.0-47.0) 02/04/17 14:11 MCV 86.4 fL (81.0-99.0) 02/04/17 14:11 MCH 27.9 pg (27.0-31.0) 02/04/17 14:11 MCHC 32.3 g/dL (33.0-37.0) L 02/04/17 14:11 RDW 14.4 % (11.5-14.5) 02/04/17 14:11 Plt Count 338 K/uL (130-400) 02/04/17 14:11 MPV 8.6 fL (7.2-11.7) 02/04/17 14:11 Neut % (Auto) 67.0 % (50.0-75.0) 02/04/17 14:11 Lymph % (Auto) 20.4 % (20.0-40.0) 02/04/17 14:11 [place] % (Auto) 8.7 % (0.0-10.0) 02/04/17 14:11 Eos % (Auto) 3.4 % (0.0-4.0) 02/04/17 14:11 Baso % (Auto) 0.5 % (0.0-2.0) 02/04/17 14:11 Neut # 5.9 K/uL (1.8-7.0) 02/04/17 14:11 Lymph # 1.8 K/uL (1.0-4.3) 02/04/17 14:11 [place] # 0.8 K/uL (0.0-0.8) 02/04/17 14:11 Eos # 0.3 K/uL (0.0-0.7) 02/04/17 14:11 Baso # 0.0 K/uL (0.0-0.2) 02/04/17 14:11 Sodium 137 mmol/L (132-148) 02/04/17 14:11 Potassium 5.0 mmol/L (3.6-5.2) 02/04/17 14:11 Chloride 103 mmol/L (98-107) 02/04/17 14:11 Carbon Dioxide 25 mmol/L (22-30) 02/04/17 14:11 Anion Gap 15 (10-20) 02/04/17 14:11 BUN 13 mg/dL (7-17) 02/04/17 14:11 Creatinine 0.9 MG/DL (0.7-1.2) 02/04/17 14:11 Est GFR ( Amer) > 60 02/04/17 14:11 Est GFR (Non-Af Amer) > 60 02/04/17 14:11 POC Glucose (mg/dL) 176 mg/dL (65-110) H 02/04/17 16:25 Random Glucose 122 mg/dL (65-105) H 02/04/17 14:11 Calcium 9.0 mg/dl (8.6-10.4) 02/04/17 14:11 Total Bilirubin 0.5 mg/dL (0.2-1.3) 01/26/17 11:18 AST 17 U/L (14-36) 01/26/17 11:18 ALT 21 U/L (9-52) 01/26/17 11:18 Alkaline Phosphatase 101 U/L (38-126) 01/26/17 11:18 Total Protein 7.2 g/dL (6.3-8.3) 01/26/17 11:18 Albumin 3.7 g/dL (3.5-5.0) 01/26/17 11:18 Globulin 3.5 gm/dL (2.2-3.9) 01/26/17 11:18 Albumin/Globulin Ratio 1.1 (1.0-2.1) 01/26/17 11:18 Urine Color Yellow (YELLOW) 01/26/17 13:18 Urine Clarity Hazy (Clear) 01/26/17 13:18 Urine pH 5.0 (5.0-8.0) 01/26/17 13:18 Ur Specific [place] 1.012 (1.003-1.030) 01/26/17 13:18 Urine Protein Negative mg/dL (NEGATIVE) 01/26/17 13:18 Urine Glucose (UA) Normal mg/dL (Normal) 01/26/17 13:18 Urine Ketones Negative mg/dL (NEGATIVE) 01/26/17 13:18 Urine Blood 1+ (NEGATIVE) H 01/26/17 13:18 Urine Nitrate Negative (NEGATIVE) 01/26/17 13:18 Urine Bilirubin Negative (NEGATIVE) 01/26/17 13:18 Urine Urobilinogen Normal mg/dL (0.2-1.0) 01/26/17 13:18 Ur Leukocyte Esterase 3+ [place]/uL (Negative) H 01/26/17 13:18 Urine WBC (Auto) 82 /hpf (0-5) H 01/26/17 13:18 Urine RBC (Auto) 4 /hpf (0-3) H 01/26/17 13:18 Ur Squamous Epith Cells 29 /hpf (0-5) H 01/26/17 13:18 Vancomycin Trough 12.8 ug/mL (5.0-10.0) H 01/28/17 13:09 - Hospital Course Hospital Course: 77 yr old female with PMHX of diabetes mellitus, hypertension, hypercholesterolemia, arthritis admitted for infected ulcer on the right medial ankle. wound culture- psuedomonus,/coynobacter - and treated with cefepime and vanco Bone scan - pt is transferred back to [facility] for sub acute rehab Discharge Exam - Head Exam Head Exam: NORMOCEPHALIC - Eye Exam Eye Exam: EOMI, Normal appearance, PERRL Pupil Exam: NORMAL ACCOMODATION - ENT Exam ENT Exam: Mucous Membranes Moist - Respiratory Exam Respiratory Exam: Clear to PA & Lateral, NORMAL BREATHING PATTERN - Cardiovascular Exam Cardiovascular Exam: REGULAR RHYTHM, +S1, +S2 - GI/Abdominal Exam GI & Abdominal Exam: Normal Bowel Sounds - Extremities Exam Extremities exam: pedal edema, tenderness Discharge Plan - Follow Up Plan Condition: STABLE Disposition: REHAB FACILITY/REHAB UNIT Instructions: Vancomycin/Dextrose Premix (By injection), Ankle Fracture (DC), Wound Infection (DC), Cellulitis (DC), Diabetes Mellitus Type 2 in Adults (DC) Additional Instructions: Please admit patient under Dr. Bonilla service - Call Dr. Bonilla upon patient arrival to the facility Continue medication as per Med. Rec. Continue antibiotics x 1 week continue wound care May use picc line - care as protocol CBC, BMP Tuesday and Vanco trough - and keep between 10-20 Patient needs to follow up with Dr. Granados upon discharge form [facility] Referrals: Celso Bonilla MD [Staff Provider] -
== END 2017-02-04 18:30 | DRG 863 ==
LOC: C.ER 09:42 → C.9E 13:08 → C.5T 20:51 → C.3T 01-27 17:49
PROVIDERS: ADMIT Internal Medicine; ATTEND Internal Medicine
PROC: 02HV33Z Insertion of Infusion Device into Superior Vena Cava, Percutaneous Approach (ICD-10-PCS; principal; 2017-01-28)
PROC: 02HV33Z Insertion of Infusion Device into Superior Vena Cava, Percutaneous Approach (ICD-10-PCS; 2017-01-31)
DX: T81.4XXA Infection following a procedure, initial encounter (principal); E11.622 Type 2 diabetes mellitus with other skin ulcer; F03.90 Unspecified dementia, unspecified severity, without behavioral disturbance, psychotic disturbance, mood disturbance, and anxiety; F05 Delirium due to known physiological condition; I10 Essential (primary) hypertension; M79.1 Myalgia; B99.9 Unspecified infectious disease; L03.115 Cellulitis of right lower limb; L97.319 Non-pressure chronic ulcer of right ankle with unspecified severity; N39.0 Urinary tract infection, site not specified; S82.843A Displaced bimalleolar fracture of unspecified lower leg, initial encounter for closed fracture; E78.00 Pure hypercholesterolemia, unspecified; Z79.4 Long term (current) use of insulin; E11.628 Type 2 diabetes mellitus with other skin complications; Y83.8 Other surgical procedures as the cause of abnormal reaction of the patient, or of later complication, without mention of misadventure at the time of the procedure; F39 Unspecified mood [affective] disorder; B96.5 Pseudomonas (aeruginosa) (mallei) (pseudomallei) as the cause of diseases classified elsewhere

== ENCOUNTER 2017-09-12 15:13 | Inpatient (IN) | payer MEDICARE, OTHER ==
[2017-09-12 15:14] VITALS: BMI 24.1
[2017-09-12] MEDS ORDERED: Sodium Chloride 0.9% 500 ML IV ONE (17:52)
[2017-09-12] MEDS ORDERED: Sodium Chloride 0.9% 1,000 ML ONE (18:04)
[2017-09-12 18:13] LABS: BASO % 0.2 % (0.0-2.0); HEMOGLOBIN 13.1 g/dL (11.0-16.0); LYMPH % 7.9 % (20.0-40.0); MEAN CELL VOLUME 87.3 fL (81.0-99.0); MEAN CORPUSCULAR HEMOGLOBIN 28.5 pg (27.0-31.0); MEAN CORPUSCULAR HGB CONC 32.6 g/dL (33.0-37.0); MEAN PLATELET VOLUME 8.8 fL (7.2-11.7); MONO # 0.5 K/uL (0.0-0.8); MONO % 3.8 % (0.0-10.0); NEUT # 10.7 K/uL (1.8-7.0); NEUT % 88.1 % (50.0-75.0); RBC 4.61 Mil/uL (3.80-5.20); RED CELL DISTRIBUTION WIDTH 14.7 % (11.5-14.5); WHITE BLOOD COUNT 12.1 K/uL (4.8-10.8)
[2017-09-12 18:19] LABS: PLATELET COUNT 537 K/uL (130-400)
[2017-09-12 18:31] LABS: ALB/GLOB RATIO 1.2 (1.0-2.1); ALBUMIN 4.3 g/dL (3.5-5.0)
[2017-09-12 18:49] LABS: LYMPHOCYTE 5 % (20-40); TOTAL CELLS COUNTED 100
[2017-09-12 18:50] LABS: MONOCYTE 2 % (0-10); NEUTROPHIL 93 % (50-75); PLATELET ESTIMATE INCREASED (NORMAL)
[2017-09-12] MEDS ORDERED: Heparin25000 units/250ml 1/2NS 25,000 UNITS/250 ML BAG IV STA (19:24)
[2017-09-12] MEDS ORDERED: Aspirin 325 mg EC Tablets PO STA (19:24)
--- NOTE | 2017-09-12 19:42 | C.PDOC ---
Time Seen by Provider: 09/12/17 17:11 Chief Complaint (Nursing): Dizziness/Lightheaded History Per: Patient, Family Onset/Duration Of Symptoms: Days (1), Waxing/Waning Current Symptoms Are (Timing): Still Present Associated Symptoms Preceding Syncopal Episode: Worse With Standing, Other ( Nausea and vomiting) Severity: Moderate Additional History Per: Prior Records - Symptoms Of CVA Recent Head Trauma: No Past Medical History Reviewed: Historical Data, Nursing Documentation, Vital Signs Vital Signs: Last Vital Signs Temp 97.6 F 09/12/17 15:42 Pulse 82 09/12/17 19:13 Resp 18 09/12/17 19:13 BP 125/50 L 09/12/17 19:13 Pulse Ox 96 09/12/17 19:13 - Medical History PMH: Arthritis (KNEES, BACK), Dementia (PER FAMILY), Diabetes, HTN, Hypercholesterolemia - [facility] Procedures INSERTION OF INFUSION DEV INTO SUP VENA CAVA, PERC APPROACH (01/26/17) INTRODUCE LOCAL ANESTH IN PERIPH NRV, PLEXI, PERC (12/01/16) INTRODUCTION OF SERUM/TOX/VACCINE INTO MUSCLE, PERC APPROACH (12/01/16) REPOSITION RIGHT FIBULA WITH INT FIX, OPEN APPROACH (12/01/16) REPOSITION RIGHT TIBIA WITH INT FIX, OPEN APPROACH (12/01/16) Family History: States: Unknown Family Hx - Social History Hx Tobacco Use: Yes Hx Alcohol Use: Yes Hx Substance Use: No - Immunization History Hx Tetanus Toxoid Vaccination: No Hx Influenza Vaccination: Yes Hx Pneumococcal Vaccination: No Review Of Systems Except As Marked, All Systems Reviewed And Found Negative. Constitutional: Negative for: Fever Cardiovascular: Positive for: Light Headedness. Negative for: Chest Pain Respiratory: Negative for: Shortness of Breath, Hemoptysis Gastrointestinal: Positive for: Nausea, Vomiting. Negative for: Abdominal Pain , Diarrhea, Constipation, Melena, Hematochezia, Hematemesis Genitourinary: Negative for: Dysuria Musculoskeletal: Negative for: Neck Pain, Back Pain Skin: Negative for: Rash Neurological: Positive for: Dizziness. Negative for: Weakness, Numbness Physical Exam - Physical Exam Appears: Non-toxic, No Acute Distress Skin: Normal Color, Warm, Dry, No Rash Head: Atraumatic, Normacephalic Eye(s): bilateral: PERRL, EOMI Neck: Normal ROM, Supple Cardiovascular: Rhythm Regular Respiratory: Normal Breath Sounds, No Accessory Muscle Use Gastrointestinal/Abdominal: Soft, No Tenderness, No Distention Back: No CVA Tenderness Extremity: Normal ROM Neurological/Psych: Oriented x3, Normal Motor, Normal Sensation ED Course And Treatment - Laboratory Results Result Diagrams: 09/12/17 18:09 09/12/17 18:09 Interpretation Of Abnormal: Elevetated Troponin ECG: Interpreted By Me, Viewed By Me ECG Rhythm: Sinus Rhythm, ST/T Changes ECG Interpretation: Abnormal Interpretation Of ECG: ST elevation in V2. 1mm ST elevation in I and aVL. ST depression in inferior leads. Rate From EC O2 Sat by Pulse Oximetry: 96 Pulse Ox Interpretation: Normal - Radiology CXR: Interpreted by Me, Viewed By Me CXR Interpretation: Yes: No Acute Disease - Physician Consult Information Physician Contacted: Kalen Robledo (Cardio) Outcome Of Conversation: I discussed the pt's presentation with him and he review the EKG. He will take pt to parking lot laborer as a code heart. Progress - Interventions Interventions:: Observation, Intravenous fluid, Oxygen - Medications Administered Oral: Aspirin, Other (Brilinta) Intravenous: Antiemetic, Other (Heparin) - Data Reviewed Data Reviewed: Lab, Diagnostic imaging, EKG, Old records - Critical Care Citical Care: Excluding Proc Time Critical Care Time: 60 minutes - Continuity of Care Discussed patient case with:: Patient, Family-HIPPA compliant, ED Nurse, PMD Discussed pt. case with process consultant/specialty: Interventional Cardiology - Patient Plan Patient Plan: Admission, ICU, Transfer to (slabber light) Medical Decision Making Medical Decision Making: EKG and Code Heart were delayed as pt has not had chest pain and is asymptomatic in the ED. Disposition Discussed With : Celso Bonilla Comment: He accepted pt on his service. Doctor Will See Patient In The: Hospital Counseled Patient/Family Regarding: Studies Performed, Diagnosis - Disposition Disposition: HOSPITALIZED Disposition Time: 19:47 Condition: SERIOUS - Clinical Impression Clinical Impression: STEMI (ST elevation myocardial infarction)
[2017-09-12] MEDS ORDERED: Midazolam 2 MG/2 ML VIAL ONE (19:53)
[2017-09-12 19:56] LABS: PROTHROMBIN TIME 10.9 SECONDS (9.7-12.2)
--- NOTE | 2017-09-12 21:21 | CP.PCM.CON ---
History of Present Illness - History of Present Illness History of Present Illness: CC: Light headedness HPI: 77 F with hx of DM2, HTN, active tobacco use presented to ER for light headedness. Patient denies chest pain and dyspnea or palpitations On further questioning patient states she had a severe chest pain 2 days ago. The pain was so severe she did not want to leave the house. And she did not know that was a heart attack In ER she was treated for lightheadedness with IVF, had some bradycardia in the range of 55-65. Blood work revealed elevated Troponin of 100 resulting in a stat EKG which has shown Q waves in anterior leads and ST elevations in lateral leads Code heart was called and patient taken to sugar laboratory assistant Findings: 1. L Main: Patent 2. LAD: Proximal 100% occluded 3. L Cx: Dominant and patent 4. RCA: Non dominant and patent 5. LV: EF 30%. Anterior wall and apex are hypokinetic Basing upon the Q waves in anterior leads and Akinetic anterior wall and apex and patient being hemodynamically stable and no chest pain it was concluded that its a completed infarct Emergency PCI called off. Will check the viability. If positive will schedule for high risk PCI Continue anti ischemic therapy Past Patient History - Infectious Disease Hx of Infectious Diseases: None - Past Medical History & Family History Past Medical History?: Yes - Past Social History Smoking Status: Never Smoked - CARDIAC Hx Hypercholesterolemia: Yes Hx Hypertension: Yes - PULMONARY Hx Respiratory Disorders: No - NEUROLOGICAL Hx Dementia: Yes (PER FAMILY) - HEENT Hx HEENT Problems: No - RENAL Hx Chronic Kidney Disease: No - ENDOCRINE/METABOLIC Hx Endocrine Disorders: No - HEMATOLOGICAL/ONCOLOGICAL Hx Blood Disorders: Yes Hx Cancer: Yes (BREAST) Other/Comment: LEFT MASTECTOMY - INTEGUMENTARY Hx Dermatological Problems: No - MUSCULOSKELETAL/RHEUMATOLOGICAL Hx Arthritis: Yes (KNEES, BACK) - GASTROINTESTINAL Hx Gastrointestinal Disorders: No - GENITOURINARY/GYNECOLOGICAL Hx Genitourinary Disorders: No - PSYCHIATRIC Hx Substance Use: No - SURGICAL HISTORY Hx Surgeries: Yes Hx Section: Yes Hx Mastectomy: Yes (LEFT) - ANESTHESIA Hx Anesthesia: No Meds Allergies/Adverse Reactions: Allergies Allergy/AdvReac Type Severity Reaction Status Date / Time No Known Allergies Allergy Verified 11/14/16 12:17 - Medications Medications: Current Medications Aspirin (Aspirin Chewable) 81 mg PO DAILY [facility] Clopidogrel Bisulfate (Plavix) 75 mg PO DAILY [facility] Heparin Sodium/Sodium Chloride (Heparin 89737 Units/250ml 1/2 Normal Saline) 25 ,000 units in 250 mls @ 10 mls/hr IV .Q0M STA PRN Reason: Protocol Stop: 09/13/17 20:23 Last Admin: 09/12/17 20:08 Dose: 7 mls/hr Heparin Sodium/Sodium Chloride (Heparin 49130 Units/250ml 1/2 Normal Saline) 25 ,000 units in 250 mls @ 8 mls/hr IV .Q24H PRN; Protocol; 800 UNITS/HR PRN Reason: PROTOCOL Sodium Chloride (Sodium Chloride 0.45%) 1,000 mls @ 40 mls/hr IV .Q24H [facility] Stop: 09/13/17 21:00 Insulin Human Regular (Novolin R) 0 unit SC ACHS [facility] PRN Reason: Protocol Losartan Potassium (Cozaar) 25 mg PO DAILY [facility] Nicotine (Nicoderm Cq) 1 patch TD DAILY [facility] Rosuvastatin Calcium (Crestor) 20 mg PO [facility] Results - Vital Signs Recent Vital Signs: Last Vital Signs Temp 97.6 F 09/12/17 15:42 Pulse 83 09/12/17 20:07 Resp 22 09/12/17 20:07 BP 128/83 09/12/17 20:07 Pulse Ox 99 09/12/17 20:07 - Labs Result Diagrams: 09/12/17 18:09 09/12/17 18:09 Labs: Laboratory Results - last 24 hr 09/12/1718 09/12/17 18:09 18:09 19:45 WBC 12.1 H RBC 4.61 Hgb 13.1 Hct 40.2 MCV 87.3 MCH 28.5 MCHC 32.6 L RDW 14.7 H Plt Count 537 H D MPV 8.8 Neut % (Auto) 88.1 H Lymph % (Auto) 7.9 L [place] % (Auto) 3.8 Eos % (Auto) 0.0 Baso % (Auto) 0.2 Neut # (Auto) 10.7 H Lymph # (Auto) 1.0 [place] # (Auto) 0.5 Eos # (Auto) 0.0 Baso # (Auto) 0.0 Neutrophils % (Manual) 93 H Lymphocytes % (Manual) 5 L Monocytes % (Manual) 2 Platelet Estimate Increased H RBC Morphology Normal PT 10.9 INR 1.0 APTT 37 H Sodium 135 Potassium 5.3 H Chloride 94 L Carbon Dioxide 26 Anion Gap 20 BUN 30 H Creatinine 1.1 Est GFR ( Amer) 58 Est GFR (Non-Af Amer) 48 Random Glucose 199 H Calcium 10.0 Magnesium 2.3 Total Bilirubin 0.6 AST 402 H ALT 58 H D Alkaline Phosphatase 84 Troponin I 100.0000 H* NT-Pro-B Natriuret Pep 3030 H Total Protein 8.0 Albumin 4.3 Globulin 3.7 Albumin/Globulin Ratio 1.2
[2017-09-12] MEDS: Sodium Chloride 0.45% 1,000 ML IV SCH (21:30)
--- NOTE | 2017-09-12 22:59 | CP.PCM.HP ---
History of Present Illness - History of Present Illness History of Present Illness: CC: chest pain and Light headedness x 3 days HPI: 77 F with hx of DM2, HTN,dementia, OA , active tobacco use presented to ER for chest pain and dizziness for 3 days On further questioning patient states she had a severe chest pain 2 days ago. The pain was so severe she did not want to leave the house. And she did not know that was a heart attack In ER she was treated for lightheadedness with IVF, had some bradycardia in the range of 55-65. Blood work revealed elevated Troponin of 100 resulting in a stat EKG which has shown Q waves in anterior leads and ST elevations in lateral leads Code heart was called and patient taken to laborer filter plant Findings: 1. L Main: Patent 2. LAD: Proximal 100% occluded 3. L Cx: Dominant and patent 4. RCA: Non dominant and patent 5. LV: EF 30%. Anterior wall and apex are hypokinetic Basing upon the Q waves in anterior leads and Akinetic anterior wall and apex and patient being hemodynamically stable and no chest pain it was concluded that its a completed infarct Emergency PCI called off. Will check the viability. If positive will schedule for high risk PCI Continue anti ischemic therapy Present on Admission - Present on Admission Any Indicators Present on Admission: Yes Review of Systems - Review of Systems Systems not reviewed;Unavailable: Acuity of Condition - Constitutional Constitutional: Fatigue, Lethargy - EENT Eyes: absent: As Per HPI, Blind Spots, Blurred Vision, Change in Vision, Decreased Night Vision, Diplopia, Discharge, Dry Eye, Exophthalmos, Floaters, Irritation, Itchy Eyes, Loss of Peripheral Vision, Pain, Photophobia, Requires Corrective Lenses, Sees Flashes, Spots in Vision, Tunnel Vision, Other Visual Disturbances, Loss of Vision, Other Ears: absent: As Per HPI, Decreased Hearing, Ear Discharge, Ear Pain, Tinnitus, Abnormal Hearing, Disequilibrium, Dizziness, Other Nose/Mouth/Throat: absent: As Per HPI, Epistaxis, Nasal Congestion, Nasal Discharge, Nasal Obstruction, Nasal Trauma, Nose Pain, Post Nasal Drip, Sinus Pain, Sinus Pressure, Bleeding Gums, Change in Voice, Dental Pain, Dry Mouth, Dysphagia, Halitosis, Hoarsness, Lip Swelling, Mouth Lesions, Mouth Pain, Odynophagia, Sore Throat, Throat Swelling, Tongue Swelling, Facial Pain, Neck Pain, Neck Mass, Other - Cardiovascular Cardiovascular: Chest Pain, Palpitations - Respiratory Respiratory: absent: As Per HPI, Cough, Dyspnea, Hemoptysis, Dyspnea on Exertion , Wheezing, Snoring, Stridor, Pain on Inspiration, Chest Congestion, Excessive Mucous Production, Change in Mucous Color, Pain with Coughing, Other - Neurological Neurological: Dizziness, Weakness - Psychiatric Psychiatric: absent: As Per HPI, Abnormal Sleep Pattern, Anhedonia, Anxiety, Auditory Hallucinations, Behavioral Changes, Change in Appetite, Change in Libido, Confusion, Depression, Difficulty Concentrating, Hallucinations, Homicidal Ideation, Hopelessness, Irritability, Memory Loss, Mood Swings, Panic Attacks, Paranoia, Suicidal Ideation, Visual Hallucinations, Tactile Hallucinations, Other Past Patient History - Infectious Disease Hx of Infectious Diseases: None - Past Medical History & Family History Past Medical History?: Yes - Past Social History Smoking Status: Never Smoked - CARDIAC Hx Hypercholesterolemia: Yes Hx Hypertension: Yes - PULMONARY Hx Respiratory Disorders: No - NEUROLOGICAL Hx Dementia: Yes (PER FAMILY) - HEENT Hx HEENT Problems: No - RENAL Hx Chronic Kidney Disease: No - ENDOCRINE/METABOLIC Hx Endocrine Disorders: No - HEMATOLOGICAL/ONCOLOGICAL Hx Blood Disorders: Yes Hx Cancer: Yes (BREAST) Other/Comment: LEFT MASTECTOMY - INTEGUMENTARY Hx Dermatological Problems: No - MUSCULOSKELETAL/RHEUMATOLOGICAL Hx Arthritis: Yes (KNEES, BACK) - GASTROINTESTINAL Hx Gastrointestinal Disorders: No - GENITOURINARY/GYNECOLOGICAL Hx Genitourinary Disorders: No - PSYCHIATRIC Hx Substance Use: No - SURGICAL HISTORY Hx Surgeries: Yes Hx Section: Yes Hx Mastectomy: Yes (LEFT) - ANESTHESIA Hx Anesthesia: No Meds Allergies/Adverse Reactions: Allergies Allergy/AdvReac Type Severity Reaction Status Date / Time No Known Allergies Allergy Verified 11/14/16 12:17 Physical Exam - Constitutional Appears: No Acute Distress - Eye Exam Eye Exam: EOMI, Normal appearance, PERRL Pupil Exam: NORMAL ACCOMODATION, PERRL - Respiratory Exam Respiratory Exam: Clear to Auscultation Bilateral, NORMAL BREATHING PATTERN - Cardiovascular Exam Cardiovascular Exam: Bradycardia, +S1, +S2 - GI/Abdominal Exam GI & Abdominal Exam: Normal Bowel Sounds, Soft. absent: Tenderness - Rectal Exam Rectal Exam: Deferred - Neurological Exam Additional comments: positive resting tremor in b/l UE Results - Vital Signs Recent Vital Signs: Last Vital Signs Temp 97.6 F 09/12/17 15:42 Pulse 83 09/12/17 20:07 Resp 22 09/12/17 20:07 BP 128/83 09/12/17 20:07 Pulse Ox 99 09/12/17 20:07 - Labs Result Diagrams: 09/12/17 18:09 09/12/17 18:09 Labs: Laboratory Results - last 24 hr 09/12/17 09/12/17 09/12/17 18:09 18:09 19:45 WBC 12.1 H RBC 4.61 Hgb 13.1 Hct 40.2 MCV 87.3 MCH 28.5 MCHC 32.6 L RDW 14.7 H Plt Count 537 H D MPV 8.8 Neut % (Auto) 88.1 H Lymph % (Auto) 7.9 L Wright % (Auto) 3.8 Eos % (Auto) 0.0 Baso % (Auto) 0.2 Neut # (Auto) 10.7 H Lymph # (Auto) 1.0 [place] # (Auto) 0.5 Eos # (Auto) 0.0 Baso # (Auto) 0.0 Neutrophils % (Manual) 93 H Lymphocytes % (Manual) 5 L Monocytes % (Manual) 2 Platelet Estimate Increased H RBC Morphology Normal PT 10.9 INR 1.0 APTT 37 H Sodium 135 Potassium 5.3 H Chloride 94 L Carbon Dioxide 26 Anion Gap 20 BUN 30 H Creatinine 1.1 Est GFR ( Amer) 58 Est GFR (Non-Af Amer) 48 POC Glucose (mg/dL) Random Glucose 199 H Calcium 10.0 Magnesium 2.3 Total Bilirubin 0.6 AST 402 H ALT 58 H D Alkaline Phosphatase 84 Troponin I 100.0000 H* NT-Pro-B Natriuret Pep 3030 H Total Protein 8.0 Albumin 4.3 Globulin 3.7 Albumin/Globulin Ratio 1.2 09/12/17 22:09 WBC RBC Hgb Hct MCV MCH MCHC RDW Plt Count MPV Neut % (Auto) Lymph % (Auto) Wright % (Auto) Eos % (Auto) Baso % (Auto) Neut # (Auto) Lymph # (Auto) Wright # (Auto) Eos # (Auto) Baso # (Auto) Neutrophils % (Manual) Lymphocytes % (Manual) Monocytes % (Manual) Platelet Estimate RBC Morphology PT INR APTT Sodium Potassium Chloride Carbon Dioxide Anion Gap BUN Creatinine Est GFR ( Amer) Est GFR (Non-Af Amer) POC Glucose (mg/dL) 143 H Random Glucose Calcium Magnesium Total Bilirubin AST ALT Alkaline Phosphatase Troponin I NT-Pro-B Natriuret Pep Total Protein Albumin Globulin Albumin/Globulin Ratio Assessment & Plan (1) STEMI (ST elevation myocardial infarction) Assessment and Plan: s/p cardiac cath for ICU viable studies if myocardium is vaible will have angioplasty Status: Acute (2) Carotid atherosclerosis Status: Acute (3) Dementia Status: Acute (4) Diabetes mellitus type 2 in nonobese Status: Chronic (5) Hypertension Status: Chronic
[2017-09-12] MEDS: (Novolin R) Insulin Human Regular 100 units/ml vial SC SCH (23:00)
--- NOTE | 2017-09-12 23:15 | CP.PCM.CON ---
History of Present Illness - History of Present Illness History of Present Illness: 77 F with h/o HTN, DM, tobacco abuse, admitted post cardiac cath for anterior stemi. Patient had CP 2 days prior but didn't come to hospital as per the presenting history, but is slightly confused now mentions has been in hospital for 2 days. Patient's trop was 100, Q in ant leads slight st in lateral leads with 100% LAD occlusion on cath rest patent, decreased motility of ant and apical area, ef of 30% the infarct was felt to be completed. Patient was dizzy and bradycardic when presented but has been maintaining vs, in no clinical symptoms. PMH as above PSH C section Allergies nkda Family history not contributory Meds, amlodipine 5mg, atorvastatin 40mg, Metformin, januvia, celocoxib Social history denies alcohol, but active tobacco history patient refuses to quantity. Review of Systems - Review of Systems All systems: reviewed and no additional remarkable complaints except (HPI) Past Patient History - Infectious Disease Hx of Infectious Diseases: None - Past Medical History & Family History Past Medical History?: Yes - Past Social History Smoking Status: Light Smoker < 10 Cigarettes Daily Alcohol: None Drugs: Denies Home Situation {Lives}: With Family Domestic Violence: Negative - CARDIAC Hx Hypercholesterolemia: Yes Hx Hypertension: Yes - PULMONARY Hx Respiratory Disorders: No - NEUROLOGICAL Hx Dementia: Yes (PER FAMILY) - HEENT Hx HEENT Problems: No - RENAL Hx Chronic Kidney Disease: No - ENDOCRINE/METABOLIC Hx Endocrine Disorders: No - HEMATOLOGICAL/ONCOLOGICAL Hx Blood Disorders: Yes Hx Cancer: Yes (BREAST) Other/Comment: LEFT MASTECTOMY - INTEGUMENTARY Hx Dermatological Problems: No - MUSCULOSKELETAL/RHEUMATOLOGICAL Hx Arthritis: Yes (KNEES, BACK) - GASTROINTESTINAL Hx Gastrointestinal Disorders: No - GENITOURINARY/GYNECOLOGICAL Hx Genitourinary Disorders: No - PSYCHIATRIC Hx Substance Use: No - SURGICAL HISTORY Hx Surgeries: Yes Hx Section: Yes Hx Mastectomy: Yes (LEFT) - ANESTHESIA Hx Anesthesia: No Meds Allergies/Adverse Reactions: Allergies Allergy/AdvReac Type Severity Reaction Status Date / Time No Known Allergies Allergy Verified 11/14/16 12:17 - Medications Medications: Current Medications Aspirin (Aspirin Chewable) 81 mg PO DAILY [facility] Clopidogrel Bisulfate (Plavix) 75 mg PO DAILY [facility] Sodium Chloride (Sodium Chloride 0.45%) 1,000 mls @ 40 mls/hr IV .Q24H [facility] Stop: 09/13/17 21:00 Heparin Sodium/Sodium Chloride (Heparin 04209 Units/250ml 1/2 Normal Saline) 25 ,000 units in 250 mls @ 8 mls/hr IV .Q24H PRN; Protocol; 800 UNITS/HR PRN Reason: PROTOCOL Insulin Human Regular (Novolin R) 0 unit SC ACHS [facility] PRN Reason: Protocol Losartan Potassium (Cozaar) 25 mg PO DAILY [facility] Nicotine (Nicoderm Cq) 1 patch TD DAILY [facility] Rosuvastatin Calcium (Crestor) 20 mg PO HS [facility] Sitagliptin Phosphate (Januvia) 100 mg PO DAILY [facility] Physical Exam - Additional Findings Additional findings: * 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 * Neck supple * Chest Clear * CVS Regular hr in 55 * PA soft, nt bs present, right groin site not swollen, no oozing * Ext peripheral pulses only doppler palpable both dp and pt, no edema * 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, no dyarthria, aphasia, weakness in any distribution or sensory symptoms * skin normal turgor * Results - Vital Signs Recent Vital Signs: Last Vital Signs Temp 97.6 F 09/12/17 15:42 Pulse 83 09/12/17 20:07 Resp 22 09/12/17 20:07 BP 128/83 09/12/17 20:07 Pulse Ox 99 09/12/17 20:07 - Labs Result Diagrams: 09/12/17 18:09 09/12/17 18:09 Labs: Laboratory Results - last 24 hr 09/12/17 09/12/17 09/12/17 18:09 18:09 19:45 WBC 12.1 H RBC 4.61 Hgb 13.1 Hct 40.2 MCV 87.3 MCH 28.5 MCHC 32.6 L RDW 14.7 H Plt Count 537 H D MPV 8.8 Neut % (Auto) 88.1 H Lymph % (Auto) 7.9 L [place] % (Auto) 3.8 Eos % (Auto) 0.0 Baso % (Auto) 0.2 Neut # (Auto) 10.7 H Lymph # (Auto) 1.0 [place] # (Auto) 0.5 Eos # (Auto) 0.0 Baso # (Auto) 0.0 Neutrophils % (Manual) 93 H Lymphocytes % (Manual) 5 L Monocytes % (Manual) 2 Platelet Estimate Increased H RBC Morphology Normal PT 10.9 INR 1.0 APTT 37 H Sodium 135 Potassium 5.3 H Chloride 94 L Carbon Dioxide 26 Anion Gap 20 BUN 30 H Creatinine 1.1 Est GFR ( Amer) 58 Est GFR (Non-Af Amer) 48 POC Glucose (mg/dL) Random Glucose 199 H Calcium 10.0 Magnesium 2.3 Total Bilirubin 0.6 AST 402 H ALT 58 H D Alkaline Phosphatase 84 Troponin I 100.0000 H* NT-Pro-B Natriuret Pep 3030 H Total Protein 8.0 Albumin 4.3 Globulin 3.7 Albumin/Globulin Ratio 1.2 09/12/17 22:09 WBC RBC Hgb Hct MCV MCH MCHC RDW Plt Count MPV Neut % (Auto) Lymph % (Auto) [place] % (Auto) Eos % (Auto) Baso % (Auto) Neut # (Auto) Lymph # (Auto) [place] # (Auto) Eos # (Auto) Baso # (Auto) Neutrophils % (Manual) Lymphocytes % (Manual) Monocytes % (Manual) Platelet Estimate RBC Morphology PT INR APTT Sodium Potassium Chloride Carbon Dioxide Anion Gap BUN Creatinine Est GFR ( Amer) Est GFR (Non-Af Amer) POC Glucose (mg/dL) 143 H Random Glucose Calcium Magnesium Total Bilirubin AST ALT Alkaline Phosphatase Troponin I NT-Pro-B Natriuret Pep Total Protein Albumin Globulin Albumin/Globulin Ratio Assessment & Plan - Assessment and Plan (Free Text) Assessment: * STEMI completed * Tobacco abuse * NIDDM * HTN * PVD on exam * Mild confusion Plan: * Continue dual antiplatelet treatment, heparin drip, arb/acei, betablocker on hold due to bradycardia, statin * GI prophylaxis * Viability study if + may need re cath * Hold Metformin, continue Januvia, sliding scale * Echo * See orders for detail.
[2017-09-13] MEDS ORDERED: Heparin25000 units/250ml 1/2NS 25,000 UNITS/250 ML BAG IV PRN ×2 (00:30)
[2017-09-13 06:46] LABS: BASO % 0.1 % (0.0-2.0); HEMOGLOBIN 13.4 g/dL (11.0-16.0); LYMPH # 1.1 K/uL (1.0-4.3); LYMPH % 4.8 % (20.0-40.0); MEAN CELL VOLUME 87.6 fL (81.0-99.0); MEAN CORPUSCULAR HGB CONC 33.1 g/dL (33.0-37.0); MEAN PLATELET VOLUME 8.8 fL (7.2-11.7); MONO # 1.4 K/uL (0.0-0.8); MONO % 6.1 % (0.0-10.0); NEUT # 20.5 K/uL (1.8-7.0); PLATELET COUNT 414 K/uL (130-400); RBC 4.63 Mil/uL (3.80-5.20); RED CELL DISTRIBUTION WIDTH 14.8 % (11.5-14.5)
[2017-09-13 07:19] LABS: ALBUMIN 3.5 g/dL (3.5-5.0); ALT/SGPT 70 U/L (9-52); AST/SGOT 455 U/L (14-36); BLOOD UREA NITROGEN 31 mg/dL (7-17); CALCIUM 8.8 mg/dl (8.6-10.4); GFR AFRICAN-AMERICAN > 60; GFR NON-AFRICAN AMERICAN > 60; HDL CHOLESTEROL 43 mg/dL (30-70)
[2017-09-13 07:28] LABS: B-TYPE NATRIURETIC PEPTIDE 8370 pg/mL (0-900); CK-MB 219 ng/mL (0.0-3.38)
[2017-09-13 07:30] LABS: LDL CHOLESTEROL 126 mg/dL (0-129)
[2017-09-13] MEDS: (Novolin R) Insulin Human Regular 100 units/ml vial SC SCH ×4 (08:00→22:00)
[2017-09-13] MEDS: Heparin25000 units/250ml 1/2NS 25,000 UNITS/250 ML BAG IV PRN (08:15)
--- NOTE | 2017-09-13 09:17 | RAD ---
PROCEDURE: CHEST RADIOGRAPH, 1 VIEW HISTORY: Dizziness, vomiting COMPARISON: Comparison made with prior chest radiograph 01/31/2017. . FINDINGS: LUNGS: Increased/ coarsened interstitial markings with more honeycomb fibrotic appearance in the lower lung maharaj. . There may also be mild pleural thickening both lung bases versus tiny effusions. . There are a few tiny at calcifications both lung apices possibly representing pleural base calcification versus tiny calcified granulomata PLEURA: As above. No evidence of pneumothorax. CARDIOVASCULAR: Heart size is upper limits of normal. OSSEOUS STRUCTURES: No significant abnormalities. VISUALIZED UPPER ABDOMEN: Normal. OTHER FINDINGS: None. IMPRESSION: Increased/ coarsened interstitial markings with more honeycomb fibrotic appearance in the lower lung maharaj. . There may also be mild pleural thickening both lung bases versus tiny effusions. . There are a few tiny at calcifications both lung apices possibly representing pleural base calcification versus tiny calcified granulomata
[2017-09-13 09:26] LABS: BANDS 3 % (0-2); LYMPHOCYTE 5 % (20-40); MONOCYTE 5 % (0-10); NEUTROPHIL 87 % (50-75); PLATELET ESTIMATE NORMAL (NORMAL); TOTAL CELLS COUNTED 100
--- NOTE | 2017-09-13 10:35 | CP.CCUPN ---
<SureshJusticen - Last Filed: 09/13/17 17:06> CCU Subjective - Physician Review Events Since Last Encounter (Free Text): 09/13/17 10:46 Per nursing no acute events occurred overnight. Subjective (Free Text): 09/13/17 10:46 Patient seen and examined at bedside. ROS unobtainable due to acuity of condition. Critical Care Time Spent (in minutes): 40 CCU Objective - Vital Signs / Intake & Output Vital Signs (Last 4 hours): Vital Signs Temp Pulse Resp BP Pulse Ox 09/13/17 09:02 57 L 25 H 111/57 L 97 09/13/17 08:46 60 22 97/53 L 97 09/13/17 08:00 97.8 F 58 L 26 H 95 09/13/17 07:04 64 32 H 121/89 97 09/13/17 07:00 79 29 H 85 L Intake and Output (Last 8hrs): Intake & Output 09/12/17 09/13/17 09/13/17 22:59 06:59 14:59 Intake Total 40 376 312 Output Total 0 650 0 Balance 40 -274 312 Weight 125 lb 107 lb 9.369 oz Intake: IV 60 Intake, IV Amount 40 376 132 Right Distal Port Hand 56 12 Right Hand 40 320 120 Oral 120 Output: Urine 0 650 0 Urine, Voided 0 650 0 Stool 0 Emesis 0 Other: Voiding Method Bedpan # Voids Urine, Voided 1 - Physical Exam Head: Positive for: Atraumatic, Normocephalic. Negative for: Tenderness, Laceration Pupils: Positive for: PERRL Extroacular Muscles: Positive for: EOMI Conjunctiva: Positive for: Normal Mouth: Positive for: Moist Mucous Membranes. Negative for: Normal Teeth Neck: Positive for: Normal Range of Motion Respiratory/Chest: Positive for: Clear to Auscultation, Good Air Exchange Cardiovascular: Positive for: Regular Rate and Rhythm, Normal S1, S2 Abdomen: Positive for: Normal Bowel Sounds. Negative for: Tenderness, Distention Upper Extremity: Positive for: Normal Inspection. Negative for: Cyanosis Lower Extremity: Positive for: Normal Inspection. Negative for: Edema Skin: Positive for: Warm, Dry, Normal Color Psychiatric: Positive for: Alert Other physical findings (Free Text): positive resting tremor in b/l UE - Medications Active Medications: Active Medications Generic Name Dose Route Start Last Admin Trade Name Freq PRN Reason Stop Dose Admin Aspirin 81 mg 09/13/17 10:00 Aspirin Chewable PO DAILY [facility] Clopidogrel Bisulfate 75 mg 09/13/17 10:00 09/13/17 09:58 Plavix PO 75 mg DAILY [facility] Administration Sodium Chloride 1,000 mls @ 40 mls/hr 09/12/17 21:00 09/12/17 21:30 Sodium Chloride 0.45% IV 09/13/17 21:00 40 mls/hr .Q24H [facility] Administration Heparin Sodium/Sodium Chloride 25,000 units in 250 mls @ 8 mls/hr 09/13/17 00: 30 09/13/17 07:00 Heparin 83922 Units/250ml 1/2 Normal Saline IV 0 units/hr .Q24H PRN 0 mls/hr PROTOCOL Titration Protocol 800 UNITS/HR Insulin Human Regular 0 unit 09/12/17 22:00 09/13/17 08:00 Novolin R SC 1 unit ACHS [facility] Administration Protocol Losartan Potassium 25 mg 09/13/17 10:00 09/13/17 10:05 Cozaar PO Not Given DAILY [facility] Nicotine 1 patch 09/13/17 10:00 09/13/17 09:58 Nicoderm Cq TD 1 patch DAILY [facility] Administration Pneumococcal Polyvalent Vaccine 0.5 ml 09/14/17 10:00 Pneumovax 23 Vaccine IM 09/14/17 10:01 .ONCE ONE Rosuvastatin Calcium 20 mg 09/12/17 22:00 09/12/17 23:21 Crestor PO 20 mg HS [facility] Administration Sitagliptin Phosphate 100 mg 09/13/17 10:00 09/13/17 09:58 Januvia PO 100 mg DAILY [facility] Administration - Patient Studies Lab Studies: Lab Studies 09/13/17 09/13/17 09/13/17 Range/Units 07:27 06:30 06:30 WBC 23.0 H D (4.8-10.8) K/uL RBC 4.63 (3.80-5.20) Mil/uL Hgb 13.4 (11.0-16.0) g/dL Hct 40.6 (34.0-47.0) % MCV 87.6 (81.0-99.0) fL MCH 29.0 (27.0-31.0) pg MCHC 33.1 (33.0-37.0) g/dL RDW 14.8 H (11.5-14.5) % Plt Count 414 H D (130-400) K/uL MPV 8.8 (7.2-11.7) fL Neut % (Auto) 89.0 H (50.0-75.0) % Lymph % (Auto) 4.8 L (20.0-40.0) % Schleicher % (Auto) 6.1 (0.0-10.0) % Eos % (Auto) 0.0 (0.0-4.0) % Baso % (Auto) 0.1 (0.0-2.0) % Neut # (Auto) 20.5 H (1.8-7.0) K/uL Lymph # (Auto) 1.1 (1.0-4.3) K/uL Schleicher # (Auto) 1.4 H (0.0-0.8) K/uL Eos # (Auto) 0.0 (0.0-0.7) K/uL Baso # (Auto) 0.0 (0.0-0.2) K/uL Neutrophils % (Manual) 87 H (50-75) % Band Neutrophils % 3 H (0-2) % Lymphocytes % (Manual) 5 L (20-40) % Monocytes % (Manual) 5 (0-10) % Platelet Estimate Normal (NORMAL) RBC Morphology PT (9.7-12.2) SECONDS INR APTT (21-34) SECONDS Sodium (132-148) mmol/L Potassium (3.6-5.2) mmol/L Chloride (98-107) mmol/L Carbon Dioxide (22-30) mmol/L Anion Gap (10-20) BUN (7-17) mg/dL Creatinine (0.7-1.2) mg/dL Est GFR ( Amer) Est GFR (Non-Af Amer) POC Glucose (mg/dL) 158 H (65-110) mg/dL Random Glucose (65-105) mg/dL Hemoglobin A1c 6.5 D (4.2-6.5) % Calcium (8.6-10.4) mg/dl Magnesium (1.6-2.3) mg/dL Total Bilirubin (0.2-1.3) mg/dL AST (14-36) U/L ALT (9-52) U/L Alkaline Phosphatase (38-126) U/L Total Creatine Kinase (30-135) U/L CK-MB (Mass) (0.0-3.38) ng/mL Troponin I (0.00-0.120) ng/mL NT-Pro-B Natriuret Pep (0-900) pg/mL Total Protein (6.3-8.3) g/dL Albumin (3.5-5.0) g/dL Globulin (2.2-3.9) gm/dL Albumin/Globulin Ratio (1.0-2.1) Triglycerides (0-149) mg/dL Cholesterol (0-199) mg/dL LDL Cholesterol Direct (0-129) mg/dL HDL Cholesterol (30-70) mg/dL 09/13/17 09/13/17 09/12/17 Range/Units 06:28 06:28 22:09 WBC (4.8-10.8) K/uL RBC (3.80-5.20) Mil/uL Hgb (11.0-16.0) g/dL Hct (34.0-47.0) % MCV (81.0-99.0) fL MCH (27.0-31.0) pg MCHC (33.0-37.0) g/dL RDW (11.5-14.5) % Plt Count (130-400) K/uL MPV (7.2-11.7) fL Neut % (Auto) (50.0-75.0) % Lymph % (Auto) (20.0-40.0) % Schleicher % (Auto) (0.0-10.0) % Eos % (Auto) (0.0-4.0) % Baso % (Auto) (0.0-2.0) % Neut # (Auto) (1.8-7.0) K/uL Lymph # (Auto) (1.0-4.3) K/uL Schleicher # (Auto) (0.0-0.8) K/uL Eos # (Auto) (0.0-0.7) K/uL Baso # (Auto) (0.0-0.2) K/uL Neutrophils % (Manual) (50-75) % Band Neutrophils % (0-2) % Lymphocytes % (Manual) (20-40) % Monocytes % (Manual) (0-10) % Platelet Estimate (NORMAL) RBC Morphology PT (9.7-12.2) SECONDS INR APTT 107 H* D (21-34) SECONDS Sodium 130 L (132-148) mmol/L Potassium 4.4 (3.6-5.2) mmol/L Chloride 100 (98-107) mmol/L Carbon Dioxide 20 L (22-30) mmol/L Anion Gap 15 (10-20) BUN 31 H (7-17) mg/dL Creatinine 0.8 (0.7-1.2) mg/dL Est GFR ( Amer) > 60 Est GFR (Non-Af Amer) > 60 POC Glucose (mg/dL) 143 H (65-110) mg/dL Random Glucose 175 H (65-105) mg/dL Hemoglobin A1c (4.2-6.5) % Calcium 8.8 (8.6-10.4) mg/dl Magnesium (1.6-2.3) mg/dL Total Bilirubin 0.8 (0.2-1.3) mg/dL AST 455 H (14-36) U/L ALT 70 H D (9-52) U/L Alkaline Phosphatase 75 (38-126) U/L Total Creatine Kinase 1275 H (30-135) U/L CK-MB (Mass) 219 H (0.0-3.38) ng/mL Troponin I > 80.0000 H* (0.00-0.120) ng/mL NT-Pro-B Natriuret Pep 8370 H (0-900) pg/mL Total Protein 6.8 (6.3-8.3) g/dL Albumin 3.5 (3.5-5.0) g/dL Globulin 3.4 (2.2-3.9) gm/dL Albumin/Globulin Ratio 1.0 (1.0-2.1) Triglycerides 100 (0-149) mg/dL Cholesterol 194 (0-199) mg/dL LDL Cholesterol Direct 126 (0-129) mg/dL HDL Cholesterol 43 (30-70) mg/dL 09/12/17 09/12/17 09/12/17 Range/Units 19:45 18:09 18:09 WBC 12.1 H (4.8-10.8) K/uL RBC 4.61 (3.80-5.20) Mil/uL Hgb 13.1 (11.0-16.0) g/dL Hct 40.2 (34.0-47.0) % MCV 87.3 (81.0-99.0) fL MCH 28.5 (27.0-31.0) pg MCHC 32.6 L (33.0-37.0) g/dL RDW 14.7 H (11.5-14.5) % Plt Count 537 H D (130-400) K/uL MPV 8.8 (7.2-11.7) fL Neut % (Auto) 88.1 H (50.0-75.0) % Lymph % (Auto) 7.9 L (20.0-40.0) % Schleicher % (Auto) 3.8 (0.0-10.0) % Eos % (Auto) 0.0 (0.0-4.0) % Baso % (Auto) 0.2 (0.0-2.0) % Neut # (Auto) 10.7 H (1.8-7.0) K/uL Lymph # (Auto) 1.0 (1.0-4.3) K/uL Schleicher # (Auto) 0.5 (0.0-0.8) K/uL Eos # (Auto) 0.0 (0.0-0.7) K/uL Baso # (Auto) 0.0 (0.0-0.2) K/uL Neutrophils % (Manual) 93 H (50-75) % Band Neutrophils % (0-2) % Lymphocytes % (Manual) 5 L (20-40) % Monocytes % (Manual) 2 (0-10) % Platelet Estimate Increased H (NORMAL) RBC Morphology Normal PT 10.9 (9.7-12.2) SECONDS INR 1.0 APTT 37 H (21-34) SECONDS Sodium 135 (132-148) mmol/L Potassium 5.3 H (3.6-5.2) mmol/L Chloride 94 L (98-107) mmol/L Carbon Dioxide 26 (22-30) mmol/L Anion Gap 20 (10-20) BUN 30 H (7-17) mg/dL Creatinine 1.1 (0.7-1.2) mg/dL Est GFR ( Amer) 58 Est GFR (Non-Af Amer) 48 POC Glucose (mg/dL) (65-110) mg/dL Random Glucose 199 H (65-105) mg/dL Hemoglobin A1c (4.2-6.5) % Calcium 10.0 (8.6-10.4) mg/dl Magnesium 2.3 (1.6-2.3) mg/dL Total Bilirubin 0.6 (0.2-1.3) mg/dL AST 402 H (14-36) U/L ALT 58 H D (9-52) U/L Alkaline Phosphatase 84 (38-126) U/L Total Creatine Kinase (30-135) U/L CK-MB (Mass) (0.0-3.38) ng/mL Troponin I 100.0000 H* (0.00-0.120) ng/mL NT-Pro-B Natriuret Pep 3030 H (0-900) pg/mL Total Protein 8.0 (6.3-8.3) g/dL Albumin 4.3 (3.5-5.0) g/dL Globulin 3.7 (2.2-3.9) gm/dL Albumin/Globulin Ratio 1.2 (1.0-2.1) Triglycerides (0-149) mg/dL Cholesterol (0-199) mg/dL LDL Cholesterol Direct (0-129) mg/dL HDL Cholesterol (30-70) mg/dL Laboratory Results - last 24 hr 09/12/17 09/12/17 09/12/17 18:09 18:09 19:45 WBC 12.1 H RBC 4.61 Hgb 13.1 Hct 40.2 MCV 87.3 MCH 28.5 MCHC 32.6 L RDW 14.7 H Plt Count 537 H D MPV 8.8 Neut % (Auto) 88.1 H Lymph % (Auto) 7.9 L Schleicher % (Auto) 3.8 Eos % (Auto) 0.0 Baso % (Auto) 0.2 Neut # (Auto) 10.7 H Lymph # (Auto) 1.0 Schleicher # (Auto) 0.5 Eos # (Auto) 0.0 Baso # (Auto) 0.0 Neutrophils % (Manual) 93 H Band Neutrophils % Lymphocytes % (Manual) 5 L Monocytes % (Manual) 2 Platelet Estimate Increased H RBC Morphology Normal PT 10.9 INR 1.0 APTT 37 H Sodium 135 Potassium 5.3 H Chloride 94 L Carbon Dioxide 26 Anion Gap 20 BUN 30 H Creatinine 1.1 Est GFR ( Amer) 58 Est GFR (Non-Af Amer) 48 POC Glucose (mg/dL) Random Glucose 199 H Hemoglobin A1c Calcium 10.0 Magnesium 2.3 Total Bilirubin 0.6 AST 402 H ALT 58 H D Alkaline Phosphatase 84 Total Creatine Kinase CK-MB (Mass) Troponin I 100.0000 H* NT-Pro-B Natriuret Pep 3030 H Total Protein 8.0 Albumin 4.3 Globulin 3.7 Albumin/Globulin Ratio 1.2 Triglycerides Cholesterol LDL Cholesterol Direct HDL Cholesterol 09/12/17 09/13/17 09/13/17 22:09 06:28 06:28 WBC RBC Hgb Hct MCV MCH MCHC RDW Plt Count MPV Neut % (Auto) Lymph % (Auto) Schleicher % (Auto) Eos % (Auto) Baso % (Auto) Neut # (Auto) Lymph # (Auto) Schleicher # (Auto) Eos # (Auto) Baso # (Auto) Neutrophils % (Manual) Band Neutrophils % Lymphocytes % (Manual) Monocytes % (Manual) Platelet Estimate RBC Morphology PT INR APTT 107 H* D Sodium 130 L Potassium 4.4 Chloride 100 Carbon Dioxide 20 L Anion Gap 15 BUN 31 H Creatinine 0.8 Est GFR ( Amer) > 60 Est GFR (Non-Af Amer) > 60 POC Glucose (mg/dL) 143 H Random Glucose 175 H Hemoglobin A1c Calcium 8.8 Magnesium Total Bilirubin 0.8 AST 455 H ALT 70 H D Alkaline Phosphatase 75 Total Creatine Kinase 1275 H CK-MB (Mass) 219 H Troponin I > 80.0000 H* NT-Pro-B Natriuret Pep 8370 H Total Protein 6.8 Albumin 3.5 Globulin 3.4 Albumin/Globulin Ratio 1.0 Triglycerides 100 Cholesterol 194 LDL Cholesterol Direct 126 HDL Cholesterol 43 09/13/17 09/13/17 09/13/17 06:30 06:30 07:27 WBC 23.0 H D RBC 4.63 Hgb 13.4 Hct 40.6 MCV 87.6 MCH 29.0 MCHC 33.1 RDW 14.8 H Plt Count 414 H D MPV 8.8 Neut % (Auto) 89.0 H Lymph % (Auto) 4.8 L Schleicher % (Auto) 6.1 Eos % (Auto) 0.0 Baso % (Auto) 0.1 Neut # (Auto) 20.5 H Lymph # (Auto) 1.1 Schleicher # (Auto) 1.4 H Eos # (Auto) 0.0 Baso # (Auto) 0.0 Neutrophils % (Manual) 87 H Band Neutrophils % 3 H Lymphocytes % (Manual) 5 L Monocytes % (Manual) 5 Platelet Estimate Normal RBC Morphology PT INR APTT Sodium Potassium Chloride Carbon Dioxide Anion Gap BUN Creatinine Est GFR ( Amer) Est GFR (Non-Af Amer) POC Glucose (mg/dL) 158 H Random Glucose Hemoglobin A1c 6.5 D Calcium Magnesium Total Bilirubin AST ALT Alkaline Phosphatase Total Creatine Kinase CK-MB (Mass) Troponin I NT-Pro-B Natriuret Pep Total Protein Albumin Globulin Albumin/Globulin Ratio Triglycerides Cholesterol LDL Cholesterol Direct HDL Cholesterol EKG/Cardiology Studies: Cardiology / EKG Studies 09/12/17 17:52 ELECTROCARDIOGRAM Stat Comment: Mode Of Transportation: BED Reason For Exam: bradycardia 09/13/17 07:00 ELECTROCARDIOGRAM DAILY Comment: Mode Of Transportation: Reason For Exam: acs 09/14/17 07:00 ELECTROCARDIOGRAM DAILY Comment: Mode Of Transportation: Reason For Exam: acs 09/15/17 07:00 ELECTROCARDIOGRAM DAILY Comment: Mode Of Transportation: Reason For Exam: acs Fingerstick Blood Sugar Results: 158 Review of Systems - Review of Systems Systems not reviewed;Unavailable: Acuity of Condition Critical Care Progress Note - Nutrition Nutrition: Nutrition Category Date Time Status Heart Healthy Diet [DIET] Diets 09/12/17 Dinner Active Assessment/Plan - Assessment and Plan (Free Text) Assessment: * STEMI completed * Tobacco abuse * NIDDM * HTN * PVD on exam * Mild confusion Plan: * Continue dual antiplatelet treatment, heparin drip, arb/acei, betablocker on hold due to bradycardia, statin * GI prophylaxis * Viability study if + may need re cath. Will f/u with Dr. Robledo for [facility] rec' s. * U/A and Procal ordered. Will f/u with results. * Lower extremity arterial doppler ordered .Will f/u with results. * Hold Metformin, continue Januvia, sliding scale * Echo still pending. Will f/u with results. * See orders for detail. <Luther Nolan S - Last Filed: 09/13/17 18:09> CCU Subjective - Physician Review Critical Care Time Spent (in minutes): 30 CCU Objective - Vital Signs / Intake & Output Vital Signs (Last 4 hours): Vital Signs Pulse Resp BP 09/13/17 15:02 66 20 99/52 L 09/13/17 14:53 67 30 H 70/44 L Intake and Output (Last 8hrs): Intake & Output 09/13/17 09/13/17 09/13/17 06:59 14:59 22:59 Intake Total 376 502 6 Output Total 650 350 0 Balance -274 152 6 Weight 107 lb 9.369 oz Intake: IV 60 Intake, IV Amount 376 162 6 Right Distal Port Hand 56 42 6 Right Hand 320 120 Oral 280 Output: Urine 650 350 Urine, Voided 650 350 Stool 0 0 Emesis 0 0 Other: # Voids Urine, Voided 1 - Medications Active Medications: Active Medications Generic Name Dose Route Start Last Admin Trade Name Freq PRN Reason Stop Dose Admin Albuterol/Ipratropium 3 ml 09/13/17 14:00 Duoneb 3 Mg/0.5 Mg (3 Ml) Ud INH RQ6 [facility] Aspirin 81 mg 09/13/17 10:00 09/13/17 13:09 Aspirin Chewable PO 81 mg DAILY [facility] Administration Clopidogrel Bisulfate 75 mg 09/13/17 10:00 09/13/17 09:58 Plavix PO 75 mg DAILY [facility] Administration Sodium Chloride 1,000 mls @ 40 mls/hr 09/12/17 21:00 09/12/17 21:30 Sodium Chloride 0.45% IV 09/13/17 21:00 40 mls/hr .Q24H [facility] Administration Heparin Sodium/Sodium Chloride 25,000 units in 250 mls @ 6.237 mls/hr 13:14 Heparin 03293 Units/250ml 1/2 Normal Saline IV .Q24H PRN PROTOCOL Protocol 11 UNITS/KG/HR Insulin Human Regular 0 unit 09/12/17 22:00 09/13/17 17:11 Novolin R SC Not Given ACHS [facility] Protocol Losartan Potassium 25 mg 09/13/17 10:00 09/13/17 10:05 Cozaar PO Not Given DAILY [facility] Nicotine 1 patch 09/13/17 10:00 02/13/18 09:58 Nicoderm Cq TD 1 patch DAILY [facility] Administration Pneumococcal Polyvalent Vaccine 0.5 ml 09/14/17 10:00 Pneumovax 23 Vaccine IM 09/14/17 10:01 .ONCE ONE Rosuvastatin Calcium 20 mg 09/12/17 22:00 09/12/17 23:21 Crestor PO 20 mg HS [facility] Administration Sitagliptin Phosphate 100 mg 09/13/17 10:00 09/13/17 09:58 Januvia PO 100 mg DAILY [facility] Administration - Patient Studies Lab Studies: Lab Studies 09/13/17 09/13/17 09/13/17 Range/Units 16:55 15:51 14:27 WBC (4.8-10.8) K/uL RBC (3.80-5.20) Mil/uL Hgb (11.0-16.0) g/dL Hct (34.0-47.0) % MCV (81.0-99.0) fL MCH (27.0-31.0) pg MCHC (33.0-37.0) g/dL RDW (11.5-14.5) % Plt Count (130-400) K/uL MPV (7.2-11.7) fL Neut % (Auto) (50.0-75.0) % Lymph % (Auto) (20.0-40.0) % Schleicher % (Auto) (0.0-10.0) % Eos % (Auto) (0.0-4.0) % Baso % (Auto) (0.0-2.0) % Neut # (Auto) (1.8-7.0) K/uL Lymph # (Auto) (1.0-4.3) K/uL Schleicher # (Auto) (0.0-0.8) K/uL Eos # (Auto) (0.0-0.7) K/uL Baso # (Auto) (0.0-0.2) K/uL Neutrophils % (Manual) (50-75) % Band Neutrophils % (0-2) % Lymphocytes % (Manual) (20-40) % Monocytes % (Manual) (0-10) % Platelet Estimate (NORMAL) RBC Morphology PT (9.7-12.2) SECONDS INR APTT 51 H D (21-34) SECONDS Sodium (132-148) mmol/L Potassium (3.6-5.2) mmol/L Chloride (98-107) mmol/L Carbon Dioxide (22-30) mmol/L Anion Gap (10-20) BUN (7-17) mg/dL Creatinine (0.7-1.2) mg/dL Est GFR ( Amer) Est GFR (Non-Af Amer) POC Glucose (mg/dL) 148 H (65-110) mg/dL Random Glucose (65-105) mg/dL Hemoglobin A1c (4.2-6.5) % Calcium (8.6-10.4) mg/dl Magnesium (1.6-2.3) mg/dL Total Bilirubin (0.2-1.3) mg/dL AST (14-36) U/L ALT (9-52) U/L Alkaline Phosphatase (38-126) U/L Total Creatine Kinase (30-135) U/L CK-MB (Mass) (0.0-3.38) ng/mL Troponin I (0.00-0.120) ng/mL NT-Pro-B Natriuret Pep (0-900) pg/mL Total Protein (6.3-8.3) g/dL Albumin (3.5-5.0) g/dL Globulin (2.2-3.9) gm/dL Albumin/Globulin Ratio (1.0-2.1) Triglycerides (0-149) mg/dL Cholesterol (0-199) mg/dL LDL Cholesterol Direct (0-129) mg/dL HDL Cholesterol (30-70) mg/dL Procalcitonin (0.19-0.49) NG/ML Urine Color Yellow (YELLOW) Urine Clarity Hazy (Clear) Urine pH 5.0 (5.0-8.0) Ur Specific [place] 1.034 H (1.003-1.030) Urine Protein Negative (NEGATIVE) mg/dL Urine Glucose (UA) Normal (Normal) mg/dL Urine Ketones Negative (NEGATIVE) mg/dL Urine Blood 1+ H (NEGATIVE) Urine Nitrate Negative (NEGATIVE) Urine Bilirubin Negative (NEGATIVE) Urine Urobilinogen Normal (0.2-1.0) mg/dL Ur Leukocyte Esterase Neg (Negative) Cristal/uL Urine WBC (Auto) 2 (0-5) /hpf Urine RBC (Auto) 7 H (0-3) /hpf Ur Squamous Epith Cells 2 (0-5) /hpf Urine Bacteria Rare (<OCC) Hyaline Casts 3-5 H (0-2) /lpf 09/13/17 09/13/17 09/13/17 Range/Units 14:27 11:14 07:27 WBC (4.8-10.8) K/uL RBC (3.80-5.20) Mil/uL Hgb (11.0-16.0) g/dL Hct (34.0-47.0) % MCV (81.0-99.0) fL MCH (27.0-31.0) pg MCHC (33.0-37.0) g/dL RDW (11.5-14.5) % Plt Count (130-400) K/uL MPV (7.2-11.7) fL Neut % (Auto) (50.0-75.0) % Lymph % (Auto) (20.0-40.0) % Schleicher % (Auto) (0.0-10.0) % Eos % (Auto) (0.0-4.0) % Baso % (Auto) (0.0-2.0) % Neut # (Auto) (1.8-7.0) K/uL Lymph # (Auto) (1.0-4.3) K/uL Schleicher # (Auto) (0.0-0.8) K/uL Eos # (Auto) (0.0-0.7) K/uL Baso # (Auto) (0.0-0.2) K/uL Neutrophils % (Manual) (50-75) % Band Neutrophils % (0-2) % Lymphocytes % (Manual) (20-40) % Monocytes % (Manual) (0-10) % Platelet Estimate (NORMAL) RBC Morphology PT (9.7-12.2) SECONDS INR APTT (21-34) SECONDS Sodium (132-148) mmol/L Potassium (3.6-5.2) mmol/L Chloride (98-107) mmol/L Carbon Dioxide (22-30) mmol/L Anion Gap (10-20) BUN (7-17) mg/dL Creatinine (0.7-1.2) mg/dL Est GFR ( Amer) Est GFR (Non-Af Amer) POC Glucose (mg/dL) 209 H 158 H (65-110) mg/dL Random Glucose (65-105) mg/dL Hemoglobin A1c (4.2-6.5) % Calcium (8.6-10.4) mg/dl Magnesium (1.6-2.3) mg/dL Total Bilirubin (0.2-1.3) mg/dL AST (14-36) U/L ALT (9-52) U/L Alkaline Phosphatase (38-126) U/L Total Creatine Kinase (30-135) U/L CK-MB (Mass) (0.0-3.38) ng/mL Troponin I (0.00-0.120) ng/mL NT-Pro-B Natriuret Pep (0-900) pg/mL Total Protein (6.3-8.3) g/dL Albumin (3.5-5.0) g/dL Globulin (2.2-3.9) gm/dL Albumin/Globulin Ratio (1.0-2.1) Triglycerides (0-149) mg/dL Cholesterol (0-199) mg/dL LDL Cholesterol Direct (0-129) mg/dL HDL Cholesterol (30-70) mg/dL Procalcitonin 0.53 H (0.19-0.49) NG/ML Urine Color (YELLOW) Urine Clarity (Clear) Urine pH (5.0-8.0) Ur Specific [place] (1.003-1.030) Urine Protein (NEGATIVE) mg/dL Urine Glucose (UA) (Normal) mg/dL Urine Ketones (NEGATIVE) mg/dL Urine Blood (NEGATIVE) Urine Nitrate (NEGATIVE) Urine Bilirubin (NEGATIVE) Urine Urobilinogen (0.2-1.0) mg/dL Ur Leukocyte Esterase (Negative) Cristal/uL Urine WBC (Auto) (0-5) /hpf Urine RBC (Auto) (0-3) /hpf Ur Squamous Epith Cells (0-5) /hpf Urine Bacteria (<OCC) Hyaline Casts (0-2) /lpf 09/13/17 09/13/17 09/13/17 Range/Units 06:30 06:30 06:28 WBC 23.0 H D (4.8-10.8) K/uL RBC 4.63 (3.80-5.20) Mil/uL Hgb 13.4 (11.0-16.0) g/dL Hct 40.6 (34.0-47.0) % MCV 87.6 (81.0-99.0) fL MCH 29.0 (27.0-31.0) pg MCHC 33.1 (33.0-37.0) g/dL RDW 14.8 H (11.5-14.5) % Plt Count 414 H D (130-400) K/uL MPV 8.8 (7.2-11.7) fL Neut % (Auto) 89.0 H (50.0-75.0) % Lymph % (Auto) 4.8 L (20.0-40.0) % Schleicher % (Auto) 6.1 (0.0-10.0) % Eos % (Auto) 0.0 (0.0-4.0) % Baso % (Auto) 0.1 (0.0-2.0) % Neut # (Auto) 20.5 H (1.8-7.0) K/uL Lymph # (Auto) 1.1 (1.0-4.3) K/uL Schleicher # (Auto) 1.4 H (0.0-0.8) K/uL Eos # (Auto) 0.0 (0.0-0.7) K/uL Baso # (Auto) 0.0 (0.0-0.2) K/uL Neutrophils % (Manual) 87 H (50-75) % Band Neutrophils % 3 H (0-2) % Lymphocytes % (Manual) 5 L (20-40) % Monocytes % (Manual) 5 (0-10) % Platelet Estimate Normal (NORMAL) RBC Morphology PT (9.7-12.2) SECONDS INR APTT 107 H* D (21-34) SECONDS Sodium (132-148) mmol/L Potassium (3.6-5.2) mmol/L Chloride (98-107) mmol/L Carbon Dioxide (22-30) mmol/L Anion Gap (10-20) BUN (7-17) mg/dL Creatinine (0.7-1.2) mg/dL Est GFR ( Amer) Est GFR (Non-Af Amer) POC Glucose (mg/dL) (65-110) mg/dL Random Glucose (65-105) mg/dL Hemoglobin A1c 6.5 D (4.2-6.5) % Calcium (8.6-10.4) mg/dl Magnesium (1.6-2.3) mg/dL Total Bilirubin (0.2-1.3) mg/dL AST (14-36) U/L ALT (9-52) U/L Alkaline Phosphatase (38-126) U/L Total Creatine Kinase (30-135) U/L CK-MB (Mass) (0.0-3.38) ng/mL Troponin I (0.00-0.120) ng/mL NT-Pro-B Natriuret Pep (0-900) pg/mL Total Protein (6.3-8.3) g/dL Albumin (3.5-5.0) g/dL Globulin (2.2-3.9) gm/dL Albumin/Globulin Ratio (1.0-2.1) Triglycerides (0-149) mg/dL Cholesterol (0-199) mg/dL LDL Cholesterol Direct (0-129) mg/dL HDL Cholesterol (30-70) mg/dL Procalcitonin (0.19-0.49) NG/ML Urine Color (YELLOW) Urine Clarity (Clear) Urine pH (5.0-8.0) Ur Specific [place] (1.003-1.030) Urine Protein (NEGATIVE) mg/dL Urine Glucose (UA) (Normal) mg/dL Urine Ketones (NEGATIVE) mg/dL Urine Blood (NEGATIVE) Urine Nitrate (NEGATIVE) Urine Bilirubin (NEGATIVE) Urine Urobilinogen (0.2-1.0) mg/dL Ur Leukocyte Esterase (Negative) Cristal/uL Urine WBC (Auto) (0-5) /hpf Urine RBC (Auto) (0-3) /hpf Ur Squamous Epith Cells (0-5) /hpf Urine Bacteria (<OCC) Hyaline Casts (0-2) /lpf 09/13/17 09/12/17 09/12/17 Range/Units 06:28 22:09 19:45 WBC (4.8-10.8) K/uL RBC (3.80-5.20) Mil/uL Hgb (11.0-16.0) g/dL Hct (34.0-47.0) % MCV (81.0-99.0) fL MCH (27.0-31.0) pg MCHC (33.0-37.0) g/dL RDW (11.5-14.5) % Plt Count (130-400) K/uL MPV (7.2-11.7) fL Neut % (Auto) (50.0-75.0) % Lymph % (Auto) (20.0-40.0) % Schleicher % (Auto) (0.0-10.0) % Eos % (Auto) (0.0-4.0) % Baso % (Auto) (0.0-2.0) % Neut # (Auto) (1.8-7.0) K/uL Lymph # (Auto) (1.0-4.3) K/uL Schleicher # (Auto) (0.0-0.8) K/uL Eos # (Auto) (0.0-0.7) K/uL Baso # (Auto) (0.0-0.2) K/uL Neutrophils % (Manual) (50-75) % Band Neutrophils % (0-2) % Lymphocytes % (Manual) (20-40) % Monocytes % (Manual) (0-10) % Platelet Estimate (NORMAL) RBC Morphology PT 10.9 (9.7-12.2) SECONDS INR 1.0 APTT 37 H (21-34) SECONDS Sodium 130 L (132-148) mmol/L Potassium 4.4 (3.6-5.2) mmol/L Chloride 100 (98-107) mmol/L Carbon Dioxide 20 L (22-30) mmol/L Anion Gap 15 (10-20) BUN 31 H (7-17) mg/dL Creatinine 0.8 (0.7-1.2) mg/dL Est GFR ( Amer) > 60 Est GFR (Non-Af Amer) > 60 POC Glucose (mg/dL) 143 H (65-110) mg/dL Random Glucose 175 H (65-105) mg/dL Hemoglobin A1c (4.2-6.5) % Calcium 8.8 (8.6-10.4) mg/dl Magnesium (1.6-2.3) mg/dL Total Bilirubin 0.8 (0.2-1.3) mg/dL AST 455 H (14-36) U/L ALT 70 H D (9-52) U/L Alkaline Phosphatase 75 (38-126) U/L Total Creatine Kinase 1275 H (30-135) U/L CK-MB (Mass) 219 H (0.0-3.38) ng/mL Troponin I > 80.0000 H* (0.00-0.120) ng/mL NT-Pro-B Natriuret Pep 8370 H (0-900) pg/mL Total Protein 6.8 (6.3-8.3) g/dL Albumin 3.5 (3.5-5.0) g/dL Globulin 3.4 (2.2-3.9) gm/dL Albumin/Globulin Ratio 1.0 (1.0-2.1) Triglycerides 100 (0-149) mg/dL Cholesterol 194 (0-199) mg/dL LDL Cholesterol Direct 126 (0-129) mg/dL HDL Cholesterol 43 (30-70) mg/dL Procalcitonin (0.19-0.49) NG/ML Urine Color (YELLOW) Urine Clarity (Clear) Urine pH (5.0-8.0) Ur Specific [place] (1.003-1.030) Urine Protein (NEGATIVE) mg/dL Urine Glucose (UA) (Normal) mg/dL Urine Ketones (NEGATIVE) mg/dL Urine Blood (NEGATIVE) Urine Nitrate (NEGATIVE) Urine Bilirubin (NEGATIVE) Urine Urobilinogen (0.2-1.0) mg/dL Ur Leukocyte Esterase (Negative) Cristal/uL Urine WBC (Auto) (0-5) /hpf Urine RBC (Auto) (0-3) /hpf Ur Squamous Epith Cells (0-5) /hpf Urine Bacteria (<OCC) Hyaline Casts (0-2) /lpf 18 09/12/17 Range/Units 18:09 18:09 WBC 12.1 H (4.8-10.8) K/uL RBC 4.61 (3.80-5.20) Mil/uL Hgb 13.1 (11.0-16.0) g/dL Hct 40.2 (34.0-47.0) % MCV 87.3 (81.0-99.0) fL MCH 28.5 (27.0-31.0) pg MCHC 32.6 L (33.0-37.0) g/dL RDW 14.7 H (11.5-14.5) % Plt Count 537 H D (130-400) K/uL MPV 8.8 (7.2-11.7) fL Neut % (Auto) 88.1 H (50.0-75.0) % Lymph % (Auto) 7.9 L (20.0-40.0) % Schleicher % (Auto) 3.8 (0.0-10.0) % Eos % (Auto) 0.0 (0.0-4.0) % Baso % (Auto) 0.2 (0.0-2.0) % Neut # (Auto) 10.7 H (1.8-7.0) K/uL Lymph # (Auto) 1.0 (1.0-4.3) K/uL [place] # (Auto) 0.5 (0.0-0.8) K/uL Eos # (Auto) 0.0 (0.0-0.7) K/uL Baso # (Auto) 0.0 (0.0-0.2) K/uL Neutrophils % (Manual) 93 H (50-75) % Band Neutrophils % (0-2) % Lymphocytes % (Manual) 5 L (20-40) % Monocytes % (Manual) 2 (0-10) % Platelet Estimate Increased H (NORMAL) RBC Morphology Normal PT (9.7-12.2) SECONDS INR APTT (21-34) SECONDS Sodium 135 (132-148) mmol/L Potassium 5.3 H (3.6-5.2) mmol/L Chloride 94 L (98-107) mmol/L Carbon Dioxide 26 (22-30) mmol/L Anion Gap 20 (10-20) BUN 30 H (7-17) mg/dL Creatinine 1.1 (0.7-1.2) mg/dL Est GFR ( Amer) 58 Est GFR (Non-Af Amer) 48 POC Glucose (mg/dL) (65-110) mg/dL Random Glucose 199 H (65-105) mg/dL Hemoglobin A1c (4.2-6.5) % Calcium 10.0 (8.6-10.4) mg/dl Magnesium 2.3 (1.6-2.3) mg/dL Total Bilirubin 0.6 (0.2-1.3) mg/dL AST 402 H (14-36) U/L ALT 58 H D (9-52) U/L Alkaline Phosphatase 84 (38-126) U/L Total Creatine Kinase (30-135) U/L CK-MB (Mass) (0.0-3.38) ng/mL Troponin I 100.0000 H* (0.00-0.120) ng/mL NT-Pro-B Natriuret Pep 3030 H (0-900) pg/mL Total Protein 8.0 (6.3-8.3) g/dL Albumin 4.3 (3.5-5.0) g/dL Globulin 3.7 (2.2-3.9) gm/dL Albumin/Globulin Ratio 1.2 (1.0-2.1) Triglycerides (0-149) mg/dL Cholesterol (0-199) mg/dL LDL Cholesterol Direct (0-129) mg/dL HDL Cholesterol (30-70) mg/dL Procalcitonin (0.19-0.49) NG/ML Urine Color (YELLOW) Urine Clarity (Clear) Urine pH (5.0-8.0) Ur Specific [place] (1.003-1.030) Urine Protein (NEGATIVE) mg/dL Urine Glucose (UA) (Normal) mg/dL Urine Ketones (NEGATIVE) mg/dL Urine Blood (NEGATIVE) Urine Nitrate (NEGATIVE) Urine Bilirubin (NEGATIVE) Urine Urobilinogen (0.2-1.0) mg/dL Ur Leukocyte Esterase (Negative) Cristal/uL Urine WBC (Auto) (0-5) /hpf Urine RBC (Auto) (0-3) /hpf Ur Squamous Epith Cells (0-5) /hpf Urine Bacteria (<OCC) Hyaline Casts (0-2) /lpf Laboratory Results - last 24 hr 09/12/17 09/12/17 09/12/17 18:09 18:09 19:45 WBC 12.1 H RBC 4.61 Hgb 13.1 Hct 40.2 MCV 87.3 MCH 28.5 MCHC 32.6 L RDW 14.7 H Plt Count 537 H D MPV 8.8 Neut % (Auto) 88.1 H Lymph % (Auto) 7.9 L [place] % (Auto) 3.8 Eos % (Auto) 0.0 Baso % (Auto) 0.2 Neut # (Auto) 10.7 H Lymph # (Auto) 1.0 [place] # (Auto) 0.5 Eos # (Auto) 0.0 Baso # (Auto) 0.0 Neutrophils % (Manual) 93 H Band Neutrophils % Lymphocytes % (Manual) 5 L Monocytes % (Manual) 2 Platelet Estimate Increased H RBC Morphology Normal PT 10.9 INR 1.0 APTT 37 H Sodium 135 Potassium 5.3 H Chloride 94 L Carbon Dioxide 26 Anion Gap 20 BUN 30 H Creatinine 1.1 Est GFR ( Amer) 58 Est GFR (Non-Af Amer) 48 POC Glucose (mg/dL) Random Glucose 199 H Hemoglobin A1c Calcium 10.0 Magnesium 2.3 Total Bilirubin 0.6 AST 402 H ALT 58 H D Alkaline Phosphatase 84 Total Creatine Kinase CK-MB (Mass) Troponin I 100.0000 H* NT-Pro-B Natriuret Pep 3030 H Total Protein 8.0 Albumin 4.3 Globulin 3.7 Albumin/Globulin Ratio 1.2 Triglycerides Cholesterol LDL Cholesterol Direct HDL Cholesterol Procalcitonin Urine Color Urine Clarity Urine pH Ur Specific [place] Urine Protein Urine Glucose (UA) Urine Ketones Urine Blood Urine Nitrate Urine Bilirubin Urine Urobilinogen Ur Leukocyte Esterase Urine WBC (Auto) Urine RBC (Auto) Ur Squamous Epith Cells Urine Bacteria Hyaline Casts 09/12/17 09/13/17 09/13/17 22:09 06:28 06:28 WBC RBC Hgb Hct MCV MCH MCHC RDW Plt Count MPV Neut % (Auto) Lymph % (Auto) [place] % (Auto) Eos % (Auto) Baso % (Auto) Neut # (Auto) Lymph # (Auto) [place] # (Auto) Eos # (Auto) Baso # (Auto) Neutrophils % (Manual) Band Neutrophils % Lymphocytes % (Manual) Monocytes % (Manual) Platelet Estimate RBC Morphology PT INR APTT 107 H* D Sodium 130 L Potassium 4.4 Chloride 100 Carbon Dioxide 20 L Anion Gap 15 BUN 31 H Creatinine 0.8 Est GFR ( Amer) > 60 Est GFR (Non-Af Amer) > 60 POC Glucose (mg/dL) 143 H Random Glucose 175 H Hemoglobin A1c Calcium 8.8 Magnesium Total Bilirubin 0.8 AST 455 H ALT 70 H D Alkaline Phosphatase 75 Total Creatine Kinase 1275 H CK-MB (Mass) 219 H Troponin I > 80.0000 H* NT-Pro-B Natriuret Pep 8370 H Total Protein 6.8 Albumin 3.5 Globulin 3.4 Albumin/Globulin Ratio 1.0 Triglycerides 100 Cholesterol 194 LDL Cholesterol Direct 126 HDL Cholesterol 43 Procalcitonin Urine Color Urine Clarity Urine pH Ur Specific [place] Urine Protein Urine Glucose (UA) Urine Ketones Urine Blood Urine Nitrate Urine Bilirubin Urine Urobilinogen Ur Leukocyte Esterase Urine WBC (Auto) Urine RBC (Auto) Ur Squamous Epith Cells Urine Bacteria Hyaline Casts 09/13/17 09/13/17 09/13/17 06:30 06:30 07:27 WBC 23.0 H D RBC 4.63 Hgb 13.4 Hct 40.6 MCV 87.6 MCH 29.0 MCHC 33.1 RDW 14.8 H Plt Count 414 H D MPV 8.8 Neut % (Auto) 89.0 H Lymph % (Auto) 4.8 L [place] % (Auto) 6.1 Eos % (Auto) 0.0 Baso % (Auto) 0.1 Neut # (Auto) 20.5 H Lymph # (Auto) 1.1 [place] # (Auto) 1.4 H Eos # (Auto) 0.0 Baso # (Auto) 0.0 Neutrophils % (Manual) 87 H Band Neutrophils % 3 H Lymphocytes % (Manual) 5 L Monocytes % (Manual) 5 Platelet Estimate Normal RBC Morphology PT INR APTT Sodium Potassium Chloride Carbon Dioxide Anion Gap BUN Creatinine Est GFR ( Amer) Est GFR (Non-Af Amer) POC Glucose (mg/dL) 158 H Random Glucose Hemoglobin A1c 6.5 D Calcium Magnesium Total Bilirubin AST ALT Alkaline Phosphatase Total Creatine Kinase CK-MB (Mass) Troponin I NT-Pro-B Natriuret Pep Total Protein Albumin Globulin Albumin/Globulin Ratio Triglycerides Cholesterol LDL Cholesterol Direct HDL Cholesterol Procalcitonin Urine Color Urine Clarity Urine pH Ur Specific [place] Urine Protein Urine Glucose (UA) Urine Ketones Urine Blood Urine Nitrate Urine Bilirubin Urine Urobilinogen Ur Leukocyte Esterase Urine WBC (Auto) Urine RBC (Auto) Ur Squamous Epith Cells Urine Bacteria Hyaline Casts 09/13/17 09/13/17 09/13/17 11:14 14:27 14:27 WBC RBC Hgb Hct MCV MCH MCHC RDW Plt Count MPV Neut % (Auto) Lymph % (Auto) [place] % (Auto) Eos % (Auto) Baso % (Auto) Neut # (Auto) Lymph # (Auto) [place] # (Auto) Eos # (Auto) Baso # (Auto) Neutrophils % (Manual) Band Neutrophils % Lymphocytes % (Manual) Monocytes % (Manual) Platelet Estimate RBC Morphology PT INR APTT 51 H D Sodium Potassium Chloride Carbon Dioxide Anion Gap BUN Creatinine Est GFR ( Amer) Est GFR (Non-Af Amer) POC Glucose (mg/dL) 209 H Random Glucose Hemoglobin A1c Calcium Magnesium Total Bilirubin AST ALT Alkaline Phosphatase Total Creatine Kinase CK-MB (Mass) Troponin I NT-Pro-B Natriuret Pep Total Protein Albumin Globulin Albumin/Globulin Ratio Triglycerides Cholesterol LDL Cholesterol Direct HDL Cholesterol Procalcitonin 0.53 H Urine Color Urine Clarity Urine pH Ur Specific [place] Urine Protein Urine Glucose (UA) Urine Ketones Urine Blood Urine Nitrate Urine Bilirubin Urine Urobilinogen Ur Leukocyte Esterase Urine WBC (Auto) Urine RBC (Auto) Ur Squamous Epith Cells Urine Bacteria Hyaline Casts 09/13/17 09/13/17 15:51 16:55 WBC RBC Hgb Hct MCV MCH MCHC RDW Plt Count MPV Neut % (Auto) Lymph % (Auto) [place] % (Auto) Eos % (Auto) Baso % (Auto) Neut # (Auto) Lymph # (Auto) [place] # (Auto) Eos # (Auto) Baso # (Auto) Neutrophils % (Manual) Band Neutrophils % Lymphocytes % (Manual) Monocytes % (Manual) Platelet Estimate RBC Morphology PT INR APTT Sodium Potassium Chloride Carbon Dioxide Anion Gap BUN Creatinine Est GFR ( Amer) Est GFR (Non-Af Amer) POC Glucose (mg/dL) 148 H Random Glucose Hemoglobin A1c Calcium Magnesium Total Bilirubin AST ALT Alkaline Phosphatase Total Creatine Kinase CK-MB (Mass) Troponin I NT-Pro-B Natriuret Pep Total Protein Albumin Globulin Albumin/Globulin Ratio Triglycerides Cholesterol LDL Cholesterol Direct HDL Cholesterol Procalcitonin Urine Color Yellow Urine Clarity Hazy Urine pH 5.0 Ur Specific [place] 1.034 H Urine Protein Negative Urine Glucose (UA) Normal Urine Ketones Negative Urine Blood 1+ H Urine Nitrate Negative Urine Bilirubin Negative Urine Urobilinogen Normal Ur Leukocyte Esterase Neg Urine WBC (Auto) 2 Urine RBC (Auto) 7 H Ur Squamous Epith Cells 2 Urine Bacteria Rare Hyaline Casts 3-5 H EKG/Cardiology Studies: Cardiology / EKG Studies 09/12/17 17:52 ELECTROCARDIOGRAM Stat Comment: Mode Of Transportation: BED Reason For Exam: bradycardia 09/13/17 07:00 ELECTROCARDIOGRAM DAILY Comment: Mode Of Transportation: Reason For Exam: acs 09/14/17 07:00 ELECTROCARDIOGRAM DAILY Comment: Mode Of Transportation: Reason For Exam: acs 09/15/17 07:00 ELECTROCARDIOGRAM DAILY Comment: Mode Of Transportation: Reason For Exam: acs Critical Care Progress Note - Nutrition Nutrition: Nutrition Category Date Time Status Heart Healthy Diet [DIET] Diets 09/12/17 Dinner Active Attending/Attestation - Attestation I have personally seen and examined this patient.: Yes I have fully participated in the care of the patient.: Yes I have reviewed all pertinent clinical information: Yes Notes (Text): 09/13/17 18:07 patient seen and examined in the intensive care unit. Case discussed with house staff in the morning. Status post cardiac cath with 1. L Main: Patent 2. LAD: Proximal 100% occluded 3. L Cx: Dominant and patent 4. RCA: Non dominant and patent 5. LV: EF 30%. Anterior wall and apex are hypokinetic Emergency PCI was called off because of completed infarct As per cardiology check the viability. If positive will schedule for high risk PCI Continue anti ischemic therapy
[2017-09-13] MEDS: Albuterol-Ipratrop 3 mg / 0.5 (3 ml) UD INH SCH ×2 (13:55→20:27)
--- NOTE | 2017-09-13 14:01 | VASCLAB ---
STUDY DESCRIPTION: HISTORY: Weak pulses PRIORS: No previous arterial exam. TECHNIQUE: Pulse volume recording waveforms and segmental pressures of bilateral lower extremities at multiple levels were obtained. Ankle Brachial Indices (ABIs) were calculated. Report prepared by LAUREL Gutierrez RIGHT LOWER EXTREMITY: * Brachial artery: Pressure - 110 mmHg. * Low thigh: Pressure - 128 mmHg: Ratio - 1.16 PVR waveform: Pulsatile * Calf: Pressure - 109 mmHg: Ratio - 0.99 PVR waveform: Pulsatile * Posterior tibial Artery: Pressure - 87 mmHg: Ratio - 0.79 PVR waveform: Pulsatile * Dorsalis pedis Artery: Pressure - 98 mmHg: Ratio - 0.89 PVR waveform: None * Great toe: Pressure - 82 mmHg: Ratio - 0.75 PVR waveform: Pulsatile Ankle brachial index (CHRISTINA): 0.89 LEFT LOWER EXTREMITY: * Brachial artery: Pressure - 102 mmHg. * Low thigh: Pressure - 84 mmHg: Ratio - 0.76 PVR waveform: Pulsatile * Calf: Pressure - 69 mmHg: Ratio - 0.63 PVR waveform: Reduced * Posterior tibial Artery: Pressure - 72 mmHg: Ratio - 0.65 PVR waveform: Reduced * Dorsalis pedis Artery: Pressure - 65 mmHg: Ratio - 0.59 PVR waveform: None * Great toe: Pressure - 90 mmHg: Ratio - 0.82 PVR waveform: Reduced Ankle brachial index (CHRISTINA): 0.65 OTHER FINDINGS: IMPRESSION: Right: Ankle brachial index and arterial (PVR) waveforms are suggestive of mild to moderate arterial insufficiency, beginning at the popliteal artery level. Left: Ankle brachial index and arterial (PVR) waveforms are suggestive of moderate to severe arterial insufficiency, beginning at the superficial femoral artery level. Recommend CT angiogram.
[2017-09-13 16:10] LABS: SQUAMOUS EPITHIAL 2 /hpf (0-5); URINE BACTERIA RARE (<OCC); URINE BILIRUBIN NEGATIVE (NEGATIVE); URINE BLOOD 1+ (NEGATIVE); URINE CLARITY Hazy (Clear); URINE COLOR Yellow (YELLOW); URINE GLUCOSE (UA) NORMAL (Normal); URINE LEUKOCYTE ESTERASE NEG Leu/uL (Negative); URINE PROTEIN NEGATIVE (NEGATIVE); URINE UROBILINOGEN NORMAL mg/dL (0.2-1.0)
--- NOTE | 2017-09-13 16:57 | CP.PCM.CON ---
History of Present Illness - History of Present Illness History of Present Illness: Vascular surgery consult for Dr. Tomasz Hartman, PGY-1 Pt S & E at bedside. History as per son and live in partner at bedside- pt with dementia. 77F w/PMH sig for consulted for abnormal findings on duplex ultrasound of lower extremities. LE duplex of Right CHRISTINA w/mild-moderate arterial insufficiency, startig at the popliteal artery level. LE duplex of Left ABIG w/moderate to severe arterial insufficiency, starting at the SFA level. Patient reports no pain, numbness or tingling of extremities. No foot pain with ambulation. Does report Right knee pain with ambulation. No other complaints. Originally admitted to ICU as code heart. PMH: DM, HTN, dementia, OA, PSH: Mastectomy, All: NKDA SH: Admits to current tobacco use, average of 40 yrs of 1ppd, denies ETOH or illicit drug use, has a live in partner. Review of Systems - Review of Systems Systems not reviewed;Unavailable: Language Barrier - Constitutional Constitutional: absent: Chills, Fever - EENT Eyes: absent: Change in Vision Ears: absent: Dizziness - Cardiovascular Cardiovascular: absent: Chest Pain - Gastrointestinal Gastrointestinal: absent: Abdominal Pain, Nausea, Vomiting - Musculoskeletal Musculoskeletal: absent: Numbness, Tingling - Integumentary Integumentary: absent: New Lesions - Neurological Neurological: absent: Numbness, Restless Legs, Tingling Past Patient History - Infectious Disease Hx of Infectious Diseases: None - Past Medical History & Family History Past Medical History?: Yes - Past Social History Smoking Status: Never Smoked - CARDIAC Hx Hypercholesterolemia: Yes Hx Hypertension: Yes - PULMONARY Hx Respiratory Disorders: No - NEUROLOGICAL Hx Dementia: Yes (PER FAMILY) - HEENT Hx HEENT Problems: No - RENAL Hx Chronic Kidney Disease: No - ENDOCRINE/METABOLIC Hx Endocrine Disorders: No - HEMATOLOGICAL/ONCOLOGICAL Hx Blood Disorders: Yes Hx Cancer: Yes (BREAST) Other/Comment: LEFT MASTECTOMY - INTEGUMENTARY Hx Dermatological Problems: No - MUSCULOSKELETAL/RHEUMATOLOGICAL Hx Arthritis: Yes (KNEES, BACK) - GASTROINTESTINAL Hx Gastrointestinal Disorders: No - GENITOURINARY/GYNECOLOGICAL Hx Genitourinary Disorders: No - PSYCHIATRIC Hx Substance Use: No - SURGICAL HISTORY Hx Surgeries: Yes Hx Section: Yes Hx Mastectomy: Yes (LEFT) - ANESTHESIA Hx Anesthesia: No Meds Allergies/Adverse Reactions: Allergies Allergy/AdvReac Type Severity Reaction Status Date / Time No Known Allergies Allergy Verified 11/14/16 12:17 - Medications Medications: Current Medications Albuterol/Ipratropium (Duoneb 3 Mg/0.5 Mg (3 Ml) Ud) 3 ml INH RQ6 [facility] Aspirin (Aspirin Chewable) 81 mg PO DAILY [facility] Last Admin: 09/13/17 13:09 Dose: 81 mg Clopidogrel Bisulfate (Plavix) 75 mg PO DAILY [facility] Last Admin: 09/13/17 09:58 Dose: 75 mg Sodium Chloride (Sodium Chloride 0.45%) 1,000 mls @ 40 mls/hr IV .Q24H [facility] Stop: 09/13/17 21:00 Last Admin: 09/12/17 21:30 Dose: 40 mls/hr Heparin Sodium/Sodium Chloride (Heparin 22593 Units/250ml 1/2 Normal Saline) 25 ,000 units in 250 mls @ 6.237 mls/hr IV .Q24H PRN; Protocol; 11 UNITS/KG/HR PRN Reason: PROTOCOL Insulin Human Regular (Novolin R) 0 unit SC ACHS [facility] PRN Reason: Protocol Last Admin: 09/13/17 11:30 Dose: 2 unit Losartan Potassium (Cozaar) 25 mg PO DAILY [facility] Last Admin: 09/13/17 10:05 Dose: Not Given Nicotine (Nicoderm Cq) 1 patch TD DAILY [facility] Last Admin: 09/13/17 09:58 Dose: 1 patch Pneumococcal Polyvalent Vaccine (Pneumovax 23 Vaccine) 0.5 ml IM .ONCE ONE Stop: 09/14/17 10:01 Rosuvastatin Calcium (Crestor) 20 mg PO HS [facility] Last Admin: 09/12/17 23:21 Dose: 20 mg Sitagliptin Phosphate (Januvia) 100 mg PO DAILY [facility] Last Admin: 09/13/17 09:58 Dose: 100 mg Physical Exam - Constitutional Appears: Non-toxic, No Acute Distress - Head Exam Head Exam: ATRAUMATIC, NORMAL INSPECTION, NORMOCEPHALIC - Eye Exam Eye Exam: EOMI, Normal appearance - ENT Exam ENT Exam: Mucous Membranes Moist, Normal Exam - Neck Exam Neck exam: Positive for: Full Rom, Normal Inspection - Respiratory Exam Respiratory Exam: Clear to Auscultation Bilateral, NORMAL BREATHING PATTERN. absent: Rales, Rhonchi, Wheezes - Cardiovascular Exam Cardiovascular Exam: REGULAR RHYTHM, +S1, +S2 - GI/Abdominal Exam GI & Abdominal Exam: Normal Bowel Sounds, Soft. absent: Tenderness - Extremities Exam Extremities exam: Positive for: normal inspection. Negative for: tenderness, pedal pulses present (non palpable) - Neurological Exam Neurological exam: Alert - Psychiatric Exam Psychiatric exam: Normal Affect, Normal Mood - Skin Skin Exam: Dry, Intact, Normal Color, Warm Results - Vital Signs Recent Vital Signs: Last Vital Signs Temp 97.8 F 09/13/17 08:00 Pulse 66 09/13/17 15:02 Resp 20 09/13/17 15:02 BP 99/52 L 09/13/17 15:02 Pulse Ox 95 09/13/17 11:03 - Labs Result Diagrams: 09/13/17 06:30 09/13/17 06:28 Labs: Laboratory Results - last 24 hr 09/12/17 09/12/17 09/12/17 18:09 18:09 19:45 WBC 12.1 H RBC 4.61 Hgb 13.1 Hct 40.2 MCV 87.3 MCH 28.5 MCHC 32.6 L RDW 14.7 H Plt Count 537 H D MPV 8.8 Neut % (Auto) 88.1 H Lymph % (Auto) 7.9 L [place] % (Auto) 3.8 Eos % (Auto) 0.0 Baso % (Auto) 0.2 Neut # (Auto) 10.7 H Lymph # (Auto) 1.0 [place] # (Auto) 0.5 Eos # (Auto) 0.0 Baso # (Auto) 0.0 Neutrophils % (Manual) 93 H Band Neutrophils % Lymphocytes % (Manual) 5 L Monocytes % (Manual) 2 Platelet Estimate Increased H RBC Morphology Normal PT 10.9 INR 1.0 APTT 37 H Sodium 135 Potassium 5.3 H Chloride 94 L Carbon Dioxide 26 Anion Gap 20 BUN 30 H Creatinine 1.1 Est GFR ( Amer) 58 Est GFR (Non-Af Amer) 48 POC Glucose (mg/dL) Random Glucose 199 H Hemoglobin A1c Calcium 10.0 Magnesium 2.3 Total Bilirubin 0.6 AST 402 H ALT 58 H D Alkaline Phosphatase 84 Total Creatine Kinase CK-MB (Mass) Troponin I 100.0000 H* NT-Pro-B Natriuret Pep 3030 H Total Protein 8.0 Albumin 4.3 Globulin 3.7 Albumin/Globulin Ratio 1.2 Triglycerides Cholesterol LDL Cholesterol Direct HDL Cholesterol Urine Color Urine Clarity Urine pH Ur Specific [place] Urine Protein Urine Glucose (UA) Urine Ketones Urine Blood Urine Nitrate Urine Bilirubin Urine Urobilinogen Ur Leukocyte Esterase Urine WBC (Auto) Urine RBC (Auto) Ur Squamous Epith Cells Urine Bacteria Hyaline Casts 09/12/17 09/13/17 09/13/17 22:09 06:28 06:28 WBC RBC Hgb Hct MCV MCH MCHC RDW Plt Count MPV Neut % (Auto) Lymph % (Auto) [place] % (Auto) Eos % (Auto) Baso % (Auto) Neut # (Auto) Lymph # (Auto) [place] # (Auto) Eos # (Auto) Baso # (Auto) Neutrophils % (Manual) Band Neutrophils % Lymphocytes % (Manual) Monocytes % (Manual) Platelet Estimate RBC Morphology PT INR APTT 107 H* D Sodium 130 L Potassium 4.4 Chloride 100 Carbon Dioxide 20 L Anion Gap 15 BUN 31 H Creatinine 0.8 Est GFR ( Amer) > 60 Est GFR (Non-Af Amer) > 60 POC Glucose (mg/dL) 143 H Random Glucose 175 H Hemoglobin A1c Calcium 8.8 Magnesium Total Bilirubin 0.8 AST 455 H ALT 70 H D Alkaline Phosphatase 75 Total Creatine Kinase 1275 H CK-MB (Mass) 219 H Troponin I > 80.0000 H* NT-Pro-B Natriuret Pep 8370 H Total Protein 6.8 Albumin 3.5 Globulin 3.4 Albumin/Globulin Ratio 1.0 Triglycerides 100 Cholesterol 194 LDL Cholesterol Direct 126 HDL Cholesterol 43 Urine Color Urine Clarity Urine pH Ur Specific [place] Urine Protein Urine Glucose (UA) Urine Ketones Urine Blood Urine Nitrate Urine Bilirubin Urine Urobilinogen Ur Leukocyte Esterase Urine WBC (Auto) Urine RBC (Auto) Ur Squamous Epith Cells Urine Bacteria Hyaline Casts 09/13/17 09/13/17 09/13/17 06:30 06:30 07:27 WBC 23.0 H D RBC 4.63 Hgb 13.4 Hct 40.6 MCV 87.6 MCH 29.0 MCHC 33.1 RDW 14.8 H Plt Count 414 H D MPV 8.8 Neut % (Auto) 89.0 H Lymph % (Auto) 4.8 L [place] % (Auto) 6.1 Eos % (Auto) 0.0 Baso % (Auto) 0.1 Neut # (Auto) 20.5 H Lymph # (Auto) 1.1 [place] # (Auto) 1.4 H Eos # (Auto) 0.0 Baso # (Auto) 0.0 Neutrophils % (Manual) 87 H Band Neutrophils % 3 H Lymphocytes % (Manual) 5 L Monocytes % (Manual) 5 Platelet Estimate Normal RBC Morphology PT INR APTT Sodium Potassium Chloride Carbon Dioxide Anion Gap BUN Creatinine Est GFR ( Amer) Est GFR (Non-Af Amer) POC Glucose (mg/dL) 158 H Random Glucose Hemoglobin A1c 6.5 D Calcium Magnesium Total Bilirubin AST ALT Alkaline Phosphatase Total Creatine Kinase CK-MB (Mass) Troponin I NT-Pro-B Natriuret Pep Total Protein Albumin Globulin Albumin/Globulin Ratio Triglycerides Cholesterol LDL Cholesterol Direct HDL Cholesterol Urine Color Urine Clarity Urine pH Ur Specific [place] Urine Protein Urine Glucose (UA) Urine Ketones Urine Blood Urine Nitrate Urine Bilirubin Urine Urobilinogen Ur Leukocyte Esterase Urine WBC (Auto) Urine RBC (Auto) Ur Squamous Epith Cells Urine Bacteria Hyaline Casts 09/13/17 09/13/17 09/13/17 11:14 14:27 15:51 WBC RBC Hgb Hct MCV MCH MCHC RDW Plt Count MPV Neut % (Auto) Lymph % (Auto) [place] % (Auto) Eos % (Auto) Baso % (Auto) Neut # (Auto) Lymph # (Auto) [place] # (Auto) Eos # (Auto) Baso # (Auto) Neutrophils % (Manual) Band Neutrophils % Lymphocytes % (Manual) Monocytes % (Manual) Platelet Estimate RBC Morphology PT INR APTT 51 H D Sodium Potassium Chloride Carbon Dioxide Anion Gap BUN Creatinine Est GFR ( Amer) Est GFR (Non-Af Amer) POC Glucose (mg/dL) 209 H Random Glucose Hemoglobin A1c Calcium Magnesium Total Bilirubin AST ALT Alkaline Phosphatase Total Creatine Kinase CK-MB (Mass) Troponin I NT-Pro-B Natriuret Pep Total Protein Albumin Globulin Albumin/Globulin Ratio Triglycerides Cholesterol LDL Cholesterol Direct HDL Cholesterol Urine Color Yellow Urine Clarity Hazy Urine pH 5.0 Ur Specific [place] 1.034 H Urine Protein Negative Urine Glucose (UA) Normal Urine Ketones Negative Urine Blood 1+ H Urine Nitrate Negative Urine Bilirubin Negative Urine Urobilinogen Normal Ur Leukocyte Esterase Neg Urine WBC (Auto) 2 Urine RBC (Auto) 7 H Ur Squamous Epith Cells 2 Urine Bacteria Rare Hyaline Casts 3-5 H Assessment & Plan - Assessment and Plan (Free Text) Assessment: 77F w/peripheral vascular disease Plan: Pt currently asymptomatic No vascular surgical intervention at this time Please re-consult as needed HARSHAL attending Minnie, PGY-1 - Date & Time Date: 09/13/17 Time: 13:20
[2017-09-13] MEDS: Sodium Chloride 0.45% 1,000 ML IV SCH (21:30)
[2017-09-13] MEDS ORDERED: Home Med 1 UNIT (Atorvastatin Calcium [Atorvastatin Calcium] 40 MG) PO SCH (22:00)
--- NOTE | 2017-09-13 23:55 | CP.PCM.PN ---
Subjective - Date & Time of Evaluation Date of Evaluation: 09/13/17 Time of Evaluation: 18:40 - Subjective Subjective: pt seen and examined, anxious and depressed s/p catdiac cath, on post op care unedergoing LE doppler to rule out PVD Objective - Vital Signs/Intake and Output Vital Signs (last 24 hours): Temp Pulse Resp BP Pulse Ox 98.3 F 81 28 H 103/44 L 95 09/13/17 20:00 09/13/17 23:02 09/13/17 23:02 09/13/17 23:02 09/13/17 23:02 Intake and Output: 09/13/17 09/14/17 18:59 06:59 Intake Total 846 470.8 Output Total 500 0 Balance 346 470.8 - Medications Medications: Current Medications Albuterol/Ipratropium (Duoneb 3 Mg/0.5 Mg (3 Ml) Ud) 3 ml INH RQ6 [facility] Last Admin: 09/13/17 20:27 Dose: 3 ml Aspirin (Aspirin Chewable) 81 mg PO DAILY [facility] Last Admin: 09/13/17 13:09 Dose: 81 mg Clopidogrel Bisulfate (Plavix) 75 mg PO DAILY [facility] Last Admin: 09/13/17 09:58 Dose: 75 mg Heparin Sodium/Sodium Chloride (Heparin 74354 Units/250ml 1/2 Normal Saline) 25 ,000 units in 250 mls @ 6.237 mls/hr IV .Q24H PRN; Protocol; 11 UNITS/KG/HR PRN Reason: PROTOCOL Last Admin: 09/13/17 08:15 Dose: 11 units/kg/hr, 6.237 mls/hr Insulin Human Regular (Novolin R) 0 unit SC ACHS [facility] PRN Reason: Protocol Last Admin: 09/13/17 17:11 Dose: Not Given Losartan Potassium (Cozaar) 25 mg PO DAILY [facility] Last Admin: 09/13/17 10:05 Dose: Not Given Nicotine (Nicoderm Cq) 1 patch TD DAILY [facility] Last Admin: 09/13/17 09:58 Dose: 1 patch Pneumococcal Polyvalent Vaccine (Pneumovax 23 Vaccine) 0.5 ml IM .ONCE ONE Stop: 09/14/17 10:01 Rosuvastatin Calcium (Crestor) 20 mg PO HS [facility] Last Admin: 09/13/17 21:30 Dose: 20 mg Sitagliptin Phosphate (Januvia) 100 mg PO DAILY [facility] Last Admin: 09/13/17 09:58 Dose: 100 mg - Labs Labs: 09/13/17 06:30 09/13/17 06:28 PT 10.9 SECONDS (9.7-12.2) 09/12/17 19:45 INR 1.0 09/12/17 19:45 APTT 67 SECONDS (21-34) H D 09/13/17 20:39 - Constitutional Appears: No Acute Distress - Head Exam Head Exam: ATRAUMATIC, NORMAL INSPECTION, NORMOCEPHALIC - Eye Exam Eye Exam: EOMI, Normal appearance, PERRL Pupil Exam: NORMAL ACCOMODATION, PERRL - Respiratory Exam Respiratory Exam: Clear to Ausculation Bilateral, NORMAL BREATHING PATTERN - Cardiovascular Exam Cardiovascular Exam: REGULAR RHYTHM, +S1, +S2, Murmur Assessment and Plan (1) STEMI (ST elevation myocardial infarction) Status: Acute (2) Carotid atherosclerosis Status: Acute (3) Dementia Status: Acute (4) Diabetes mellitus type 2 in nonobese Status: Chronic (5) Hypertension Status: Chronic
[2017-09-14] MEDS: Albuterol-Ipratrop 3 mg / 0.5 (3 ml) UD INH SCH ×4 (01:44→19:09)
[2017-09-14 06:33] LABS: BASO % 0.2 % (0.0-2.0); HEMOGLOBIN 12.4 g/dL (11.0-16.0); LYMPH # 1.4 K/uL (1.0-4.3); LYMPH % 8.6 % (20.0-40.0); MEAN CELL VOLUME 86.2 fL (81.0-99.0); MEAN CORPUSCULAR HEMOGLOBIN 29.4 pg (27.0-31.0); MEAN CORPUSCULAR HGB CONC 34.1 g/dL (33.0-37.0); MEAN PLATELET VOLUME 9.2 fL (7.2-11.7); MONO # 1.3 K/uL (0.0-0.8); MONO % 7.9 % (0.0-10.0); NEUT # 13.9 K/uL (1.8-7.0); NEUT % 83.3 % (50.0-75.0); PLATELET COUNT 340 K/uL (130-400); RBC 4.21 Mil/uL (3.80-5.20); RED CELL DISTRIBUTION WIDTH 14.7 % (11.5-14.5); WHITE BLOOD COUNT 16.7 K/uL (4.8-10.8)
[2017-09-14 07:09] LABS: ALBUMIN 3.1 g/dL (3.5-5.0); ALT/SGPT 55 U/L (9-52); AST/SGOT 174 U/L (14-36); BLOOD UREA NITROGEN 27 mg/dL (7-17); CALCIUM 8.7 mg/dl (8.6-10.4); CK-MB 42.5 ng/mL (0.0-3.38); GFR AFRICAN-AMERICAN > 60; GFR NON-AFRICAN AMERICAN > 60
[2017-09-14] MEDS: (Novolin R) Insulin Human Regular 100 units/ml vial SC SCH ×4 (08:34→22:13)
[2017-09-14] MEDS: Heparin25000 units/250ml 1/2NS 25,000 UNITS/250 ML BAG IV PRN (08:56)
[2017-09-14 09:00] LABS: BANDS 2 % (0-2); LYMPHOCYTE 11 % (20-40); MONOCYTE 5 % (0-10); TOTAL CELLS COUNTED 100
[2017-09-14 09:01] LABS: NEUTROPHIL 82 % (50-75); PLATELET ESTIMATE NORMAL (NORMAL)
[2017-09-14] MEDS ORDERED: Sodium Chloride 0.9% 250 ML IV ONE (09:44)
[2017-09-14] MEDS ORDERED: Pneumococcal 23-Valent Vaccine IM ONE (10:00)
--- NOTE | 2017-09-14 10:08 | CP.PCM.PN ---
<Lidya Delgadillo - Last Filed: 09/14/17 16:35> Subjective - Date & Time of Evaluation Date of Evaluation: 09/14/17 Time of Evaluation: 09:00 - Subjective Subjective: Cardiology progress note for Dr. Robledo: Patient was seen and examined at bedside this morning. She was about o go to her viability scan. Patient denied chest pain, palpitations, or shortness of breath but stated she was slightly dizzy. Patient's BP was noted to be 96/45 so 250cc NS bolus was started. BP meds but on hold. Objective - Vital Signs/Intake and Output Vital Signs (last 24 hours): Temp Pulse Resp BP Pulse Ox 97.8 F 73 27 H 77/33 L 100 09/14/17 04:00 09/14/17 08:01 09/14/17 08:01 09/14/17 08:01 09/14/17 08:01 Intake and Output: 09/14/17 09/14/17 06:59 18:59 Intake Total 794.2 388.6 Output Total 200 Balance 594.2 388.6 - Medications Medications: Current Medications Albuterol/Ipratropium (Duoneb 3 Mg/0.5 Mg (3 Ml) Ud) 3 ml INH RQ6 [facility] Last Admin: 09/14/17 07:54 Dose: 3 ml Aspirin (Aspirin Chewable) 81 mg PO DAILY [facility] Last Admin: 09/13/17 13:09 Dose: 81 mg Clopidogrel Bisulfate (Plavix) 75 mg PO DAILY [facility] Last Admin: 09/13/17 09:58 Dose: 75 mg Heparin Sodium/Sodium Chloride (Heparin 75951 Units/250ml 1/2 Normal Saline) 25 ,000 units in 250 mls @ 6.237 mls/hr IV .Q24H PRN; Protocol; 11 UNITS/KG/HR PRN Reason: PROTOCOL Last Admin: 09/14/17 08:56 Dose: 11 units/kg/hr, 6.237 mls/hr Insulin Human Regular (Novolin R) 0 unit SC ACHS [facility] PRN Reason: Protocol Last Admin: 09/14/17 08:34 Dose: Not Given Losartan Potassium (Cozaar) 25 mg PO DAILY [facility] Last Admin: 09/13/17 10:05 Dose: Not Given Nicotine (Nicoderm Cq) 1 patch TD DAILY [facility] Last Admin: 09/13/17 09:58 Dose: 1 patch Rosuvastatin Calcium (Crestor) 20 mg PO HS [facility] Last Admin: 09/13/17 21:30 Dose: 20 mg Sitagliptin Phosphate (Januvia) 100 mg PO DAILY [facility] Last Admin: 09/13/17 09:58 Dose: 100 mg - Labs Labs: 09/14/17 06:24 09/14/17 06:23 PT 10.9 SECONDS (9.7-12.2) 09/12/17 19:45 INR 1.0 09/12/17 19:45 APTT 58 SECONDS (21-34) H D 09/14/17 06:24 - Constitutional Appears: Non-toxic, No Acute Distress - Head Exam Head Exam: ATRAUMATIC, NORMAL INSPECTION - Eye Exam Eye Exam: EOMI - ENT Exam ENT Exam: Mucous Membranes Moist - Respiratory Exam Respiratory Exam: Clear to Ausculation Bilateral - Cardiovascular Exam Cardiovascular Exam: REGULAR RHYTHM, +S1, +S2 - GI/Abdominal Exam GI & Abdominal Exam: Soft. absent: Distended, Firm, Guarding, Tenderness - Extremities Exam Extremities Exam: Normal Inspection. absent: Calf Tenderness - Back Exam Back Exam: NORMAL INSPECTION - Neurological Exam Neurological Exam: Alert, Awake, Oriented x3 - Psychiatric Exam Psychiatric exam: Normal Affect, Normal Mood - Skin Skin Exam: Dry, Normal Color, Warm Assessment and Plan - Assessment and Plan (Free Text) Assessment: Coronary Artery disease: - Findings of cath on 09/12: 1. L Main: Patent 2. LAD: Proximal 100% occluded 3. L Cx: Dominant and patent 4. RCA: Non dominant and patent 5. LV: EF 30%. 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 - Patient for viability scan today, will follow up - Will likely need high risk PCI - Continue medical management: Aspirin 81 mg PO daily. Plavix 75mg PO daily. Crestor 25mg PO daily PAD US showed moderate to severe PAD - f/u CT Angio Hypotension likely secondary to dehyrdration Hold Losartan for SBP<100 NS 250cc bolus administered x 1 dose NA/Cl low NS at 50 cc/hour added Discussed with Dr. Robledo <Kalen Robledo - Last Filed: 09/14/17 23:12> Objective - Vital Signs/Intake and Output Vital Signs (last 24 hours): Temp Pulse Resp BP Pulse Ox 98.6 F 89 21 97/46 L 97 09/14/17 20:00 09/14/17 22:03 09/14/17 22:03 09/14/17 22:03 09/14/17 22:03 Intake and Output: 09/14/17 09/15/17 18:59 06:59 Intake Total 1024.4 224.8 Output Total 300 0 Balance 724.4 224.8 - Medications Medications: Current Medications Albuterol/Ipratropium (Duoneb 3 Mg/0.5 Mg (3 Ml) Ud) 3 ml INH RQ6 [facility] Last Admin: 09/14/17 19:09 Dose: 3 ml Alprazolam (Xanax) 0.25 mg PO BID PRN PRN Reason: Anxiety Stop: 09/21/17 10:24 Aspirin (Aspirin Chewable) 81 mg PO DAILY [facility] Last Admin: 09/14/17 11:05 Dose: 81 mg Clopidogrel Bisulfate (Plavix) 75 mg PO DAILY [facility] Last Admin: 09/14/17 11:05 Dose: 75 mg Heparin Sodium/Sodium Chloride (Heparin 34014 Units/250ml 1/2 Normal Saline) 25 ,000 units in 250 mls @ 6.237 mls/hr IV .Q24H PRN; Protocol; 11 UNITS/KG/HR PRN Reason: PROTOCOL Last Admin: 09/14/17 08:56 Dose: 11 units/kg/hr, 6.237 mls/hr Sodium Chloride (Sodium Chloride 0.9%) 1,000 mls @ 50 mls/hr IV .Q20H [facility] Last Admin: 09/14/17 17:52 Dose: 50 mls/hr Insulin Human Regular (Novolin R) 0 unit SC ACHS [facility] PRN Reason: Protocol Last Admin: 09/14/17 22:13 Dose: Not Given Losartan Potassium (Cozaar) 25 mg PO DAILY [facility] Last Admin: 09/13/17 10:05 Dose: Not Given Nicotine (Nicoderm Cq) 1 patch TD DAILY [facility] Last Admin: 09/14/17 11:05 Dose: 1 patch Rosuvastatin Calcium (Crestor) 20 mg PO HS [facility] Last Admin: 09/14/17 22:12 Dose: 20 mg Sitagliptin Phosphate (Januvia) 100 mg PO DAILY [facility] Last Admin: 09/14/17 11:05 Dose: Not Given - Labs Labs: 09/14/17 06:24 09/14/17 06:23 PT 10.9 SECONDS (9.7-12.2) 09/12/17 19:45 INR 1.0 09/12/17 19:45 APTT 58 SECONDS (21-34) H D 09/14/17 06:24 Assessment and Plan - Assessment and Plan (Free Text) Plan: Patient seen and evaluated personally by me Raymond fo care 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
--- NOTE | 2017-09-14 11:00 | CP.CCUPN ---
<Krishna Rehman - Last Filed: 09/14/17 11:02> CCU Subjective - Physician Review Subjective (Free Text): Patient seen and examined. Patient denies chest pain or palpitations. To go for myocardium viability study today to see if candidate for high-risk PCI. CCU Objective - Vital Signs / Intake & Output Vital Signs (Last 4 hours): Vital Signs Pulse Resp BP Pulse Ox 09/14/17 08:01 73 27 H 77/33 L 100 09/14/17 08:00 72 26 H 100 Intake and Output (Last 8hrs): Intake & Output 09/13/17 09/14/17 09/14/17 22:59 06:59 14:59 Intake Total 608.6 489.6 388.6 Output Total 150 200 Balance 458.6 289.6 388.6 Weight 114 lb 10.246 oz Intake: IV 250 Intake, IV Amount 328.6 369.6 138.6 Right Distal Port Hand 48.6 49.6 18.6 Right Hand 280 320 120 Oral 280 120 Output: Urine 150 200 Urine, Voided 150 200 Stool 0 Emesis 0 Other: # Voids Urine, Voided 1 - Physical Exam Head: Positive for: Atraumatic, Normocephalic. Negative for: Tenderness, Laceration Pupils: Positive for: PERRL Extroacular Muscles: Positive for: EOMI Conjunctiva: Positive for: Normal Mouth: Positive for: Moist Mucous Membranes. Negative for: Normal Teeth Neck: Positive for: Normal Range of Motion Respiratory/Chest: Positive for: Clear to Auscultation, Good Air Exchange Cardiovascular: Positive for: Regular Rate and Rhythm, Normal S1, S2 Abdomen: Positive for: Normal Bowel Sounds. Negative for: Tenderness, Distention Upper Extremity: Positive for: Normal Inspection. Negative for: Cyanosis Lower Extremity: Positive for: Normal Inspection. Negative for: Edema Skin: Positive for: Warm, Dry, Normal Color Psychiatric: Positive for: Alert - Medications Active Medications: Active Medications Generic Name Dose Route Start Last Admin Trade Name Freq PRN Reason Stop Dose Admin Albuterol/Ipratropium 3 ml 09/13/17 14:00 09/14/17 07:54 Duoneb 3 Mg/0.5 Mg (3 Ml) Ud INH 3 ml RQ6 ROMMEL Administration Alprazolam 0.25 mg 02/14/18 10:23 Xanax PO 09/21/17 10:24 BID PRN Anxiety Aspirin 81 mg 09/13/17 10:00 09/13/17 13:09 Aspirin Chewable PO 81 mg DAILY ROMMEL Administration Clopidogrel Bisulfate 75 mg 09/13/17 10:00 09/13/17 09:58 Plavix PO 75 mg DAILY ROMMEL Administration Heparin Sodium/Sodium Chloride 25,000 units in 250 mls @ 6.237 mls/hr 13:14 09/14/17 08:56 Heparin 43230 Units/250ml 1/2 Normal Saline IV 11 units/kg/hr .Q24H PRN 6.237 mls/hr PROTOCOL Administration Protocol 11 UNITS/KG/HR Insulin Human Regular 0 unit 09/12/17 22:00 09/14/17 08:34 Novolin R SC Not Given ACHS [facility] Protocol Losartan Potassium 25 mg 09/13/17 10:00 09/13/17 10:05 Cozaar PO Not Given DAILY ROMMEL Nicotine 1 patch 09/13/17 10:00 09/13/17 09:58 Nicoderm Cq TD 1 patch DAILY ROMMEL Administration Rosuvastatin Calcium 20 mg 09/12/17 22:00 09/13/17 21:30 Crestor PO 20 mg HS ROMMEL Administration Sitagliptin Phosphate 100 mg 09/13/17 10:00 09/13/17 09:58 Januvia PO 100 mg DAILY ROMMEL Administration - Patient Studies Lab Studies: Lab Studies 09/14/17 09/14/17 09/14/17 Range/Units 07:48 06:24 06:24 WBC 16.7 H (4.8-10.8) K/uL RBC 4.21 (3.80-5.20) Mil/uL Hgb 12.4 (11.0-16.0) g/dL Hct 36.3 (34.0-47.0) % MCV 86.2 (81.0-99.0) fL MCH 29.4 (27.0-31.0) pg MCHC 34.1 (33.0-37.0) g/dL RDW 14.7 H (11.5-14.5) % Plt Count 340 (130-400) K/uL MPV 9.2 (7.2-11.7) fL Neut % (Auto) 83.3 H (50.0-75.0) % Lymph % (Auto) 8.6 L (20.0-40.0) % Davis % (Auto) 7.9 (0.0-10.0) % Eos % (Auto) 0.0 (0.0-4.0) % Baso % (Auto) 0.2 (0.0-2.0) % Neut # (Auto) 13.9 H (1.8-7.0) K/uL Lymph # (Auto) 1.4 (1.0-4.3) K/uL Davis # (Auto) 1.3 H (0.0-0.8) K/uL Eos # (Auto) 0.0 (0.0-0.7) K/uL Baso # (Auto) 0.0 (0.0-0.2) K/uL Neutrophils % (Manual) 82 H (50-75) % Band Neutrophils % 2 (0-2) % Lymphocytes % (Manual) 11 L (20-40) % Monocytes % (Manual) 5 (0-10) % Platelet Estimate Normal (NORMAL) APTT 58 H D (21-34) SECONDS Sodium (132-148) mmol/L Potassium (3.6-5.2) mmol/L Chloride (98-107) mmol/L Carbon Dioxide (22-30) mmol/L Anion Gap (10-20) BUN (7-17) mg/dL Creatinine (0.7-1.2) mg/dL Est GFR ( Amer) Est GFR (Non-Af Amer) POC Glucose (mg/dL) 142 H (65-110) mg/dL Random Glucose (65-105) mg/dL Calcium (8.6-10.4) mg/dl Phosphorus (2.5-4.5) mg/dL Magnesium (1.6-2.3) mg/dL Total Bilirubin (0.2-1.3) mg/dL AST (14-36) U/L ALT (9-52) U/L Alkaline Phosphatase (38-126) U/L Total Creatine Kinase (30-135) U/L CK-MB (Mass) (0.0-3.38) ng/mL Troponin I (0.00-0.120) ng/mL Total Protein (6.3-8.3) g/dL Albumin (3.5-5.0) g/dL Globulin (2.2-3.9) gm/dL Albumin/Globulin Ratio (1.0-2.1) Procalcitonin (0.19-0.49) NG/ML Urine Color (YELLOW) Urine Clarity (Clear) Urine pH (5.0-8.0) Ur Specific [place] (1.003-1.030) Urine Protein (NEGATIVE) mg/dL Urine Glucose (UA) (Normal) mg/dL Urine Ketones (NEGATIVE) mg/dL Urine Blood (NEGATIVE) Urine Nitrate (NEGATIVE) Urine Bilirubin (NEGATIVE) Urine Urobilinogen (0.2-1.0) mg/dL Ur Leukocyte Esterase (Negative) Cristal/uL Urine WBC (Auto) (0-5) /hpf Urine RBC (Auto) (0-3) /hpf Ur Squamous Epith Cells (0-5) /hpf Urine Bacteria (<OCC) Hyaline Casts (0-2) /lpf 09/14/17 09/13/17 09/13/17 Range/Units 06:23 21:25 20:39 WBC (4.8-10.8) K/uL RBC (3.80-5.20) Mil/uL Hgb (11.0-16.0) g/dL Hct (34.0-47.0) % MCV (81.0-99.0) fL MCH (27.0-31.0) pg MCHC (33.0-37.0) g/dL RDW (11.5-14.5) % Plt Count (130-400) K/uL MPV (7.2-11.7) fL Neut % (Auto) (50.0-75.0) % Lymph % (Auto) (20.0-40.0) % Davis % (Auto) (0.0-10.0) % Eos % (Auto) (0.0-4.0) % Baso % (Auto) (0.0-2.0) % Neut # (Auto) (1.8-7.0) K/uL Lymph # (Auto) (1.0-4.3) K/uL Davis # (Auto) (0.0-0.8) K/uL Eos # (Auto) (0.0-0.7) K/uL Baso # (Auto) (0.0-0.2) K/uL Neutrophils % (Manual) (50-75) % Band Neutrophils % (0-2) % Lymphocytes % (Manual) (20-40) % Monocytes % (Manual) (0-10) % Platelet Estimate (NORMAL) APTT 67 H D (21-34) SECONDS Sodium 127 L (132-148) mmol/L Potassium 4.3 (3.6-5.2) mmol/L Chloride 96 L (98-107) mmol/L Carbon Dioxide 23 (22-30) mmol/L Anion Gap 13 (10-20) BUN 27 H (7-17) mg/dL Creatinine 0.8 (0.7-1.2) mg/dL Est GFR ( Amer) > 60 Est GFR (Non-Af Amer) > 60 POC Glucose (mg/dL) 146 H (65-110) mg/dL Random Glucose 149 H (65-105) mg/dL Calcium 8.7 (8.6-10.4) mg/dl Phosphorus 2.9 (2.5-4.5) mg/dL Magnesium 2.1 (1.6-2.3) mg/dL Total Bilirubin 0.6 (0.2-1.3) mg/dL AST 174 H D (14-36) U/L ALT 55 H D (9-52) U/L Alkaline Phosphatase 74 (38-126) U/L Total Creatine Kinase 413 H (30-135) U/L CK-MB (Mass) 42.5 H (0.0-3.38) ng/mL Troponin I 61.7000 H* (0.00-0.120) ng/mL Total Protein 6.1 L (6.3-8.3) g/dL Albumin 3.1 L (3.5-5.0) g/dL Globulin 3.0 (2.2-3.9) gm/dL Albumin/Globulin Ratio 1.0 (1.0-2.1) Procalcitonin (0.19-0.49) NG/ML Urine Color (YELLOW) Urine Clarity (Clear) Urine pH (5.0-8.0) Ur Specific [place] (1.003-1.030) Urine Protein (NEGATIVE) mg/dL Urine Glucose (UA) (Normal) mg/dL Urine Ketones (NEGATIVE) mg/dL Urine Blood (NEGATIVE) Urine Nitrate (NEGATIVE) Urine Bilirubin (NEGATIVE) Urine Urobilinogen (0.2-1.0) mg/dL Ur Leukocyte Esterase (Negative) Cristal/uL Urine WBC (Auto) (0-5) /hpf Urine RBC (Auto) (0-3) /hpf Ur Squamous Epith Cells (0-5) /hpf Urine Bacteria (<OCC) Hyaline Casts (0-2) /lpf 09/13/17 09/13/17 09/13/17 Range/Units 16:55 15:51 14:27 WBC (4.8-10.8) K/uL RBC (3.80-5.20) Mil/uL Hgb (11.0-16.0) g/dL Hct (34.0-47.0) % MCV (81.0-99.0) fL MCH (27.0-31.0) pg MCHC (33.0-37.0) g/dL RDW (11.5-14.5) % Plt Count (130-400) K/uL MPV (7.2-11.7) fL Neut % (Auto) (50.0-75.0) % Lymph % (Auto) (20.0-40.0) % Davis % (Auto) (0.0-10.0) % Eos % (Auto) (0.0-4.0) % Baso % (Auto) (0.0-2.0) % Neut # (Auto) (1.8-7.0) K/uL Lymph # (Auto) (1.0-4.3) K/uL Davis # (Auto) (0.0-0.8) K/uL Eos # (Auto) (0.0-0.7) K/uL Baso # (Auto) (0.0-0.2) K/uL Neutrophils % (Manual) (50-75) % Band Neutrophils % (0-2) % Lymphocytes % (Manual) (20-40) % Monocytes % (Manual) (0-10) % Platelet Estimate (NORMAL) APTT 51 H D (21-34) SECONDS Sodium (132-148) mmol/L Potassium (3.6-5.2) mmol/L Chloride (98-107) mmol/L Carbon Dioxide (22-30) mmol/L Anion Gap (10-20) BUN (7-17) mg/dL Creatinine (0.7-1.2) mg/dL Est GFR ( Amer) Est GFR (Non-Af Amer) POC Glucose (mg/dL) 148 H (65-110) mg/dL Random Glucose (65-105) mg/dL Calcium (8.6-10.4) mg/dl Phosphorus (2.5-4.5) mg/dL Magnesium (1.6-2.3) mg/dL Total Bilirubin (0.2-1.3) mg/dL AST (14-36) U/L ALT (9-52) U/L Alkaline Phosphatase (38-126) U/L Total Creatine Kinase (30-135) U/L CK-MB (Mass) (0.0-3.38) ng/mL Troponin I (0.00-0.120) ng/mL Total Protein (6.3-8.3) g/dL Albumin (3.5-5.0) g/dL Globulin (2.2-3.9) gm/dL Albumin/Globulin Ratio (1.0-2.1) Procalcitonin (0.19-0.49) NG/ML Urine Color Yellow (YELLOW) Urine Clarity Hazy (Clear) Urine pH 5.0 (5.0-8.0) Ur Specific [place] 1.034 H (1.003-1.030) Urine Protein Negative (NEGATIVE) mg/dL Urine Glucose (UA) Normal (Normal) mg/dL Urine Ketones Negative (NEGATIVE) mg/dL Urine Blood 1+ H (NEGATIVE) Urine Nitrate Negative (NEGATIVE) Urine Bilirubin Negative (NEGATIVE) Urine Urobilinogen Normal (0.2-1.0) mg/dL Ur Leukocyte Esterase Neg (Negative) Cristal/uL Urine WBC (Auto) 2 (0-5) /hpf Urine RBC (Auto) 7 H (0-3) /hpf Ur Squamous Epith Cells 2 (0-5) /hpf Urine Bacteria Rare (<OCC) Hyaline Casts 3-5 H (0-2) /lpf 09/13/17 09/13/17 Range/Units 14:27 11:14 WBC (4.8-10.8) K/uL RBC (3.80-5.20) Mil/uL Hgb (11.0-16.0) g/dL Hct (34.0-47.0) % MCV (81.0-99.0) fL MCH (27.0-31.0) pg MCHC (33.0-37.0) g/dL RDW (11.5-14.5) % Plt Count (130-400) K/uL MPV (7.2-11.7) fL Neut % (Auto) (50.0-75.0) % Lymph % (Auto) (20.0-40.0) % Davis % (Auto) (0.0-10.0) % Eos % (Auto) (0.0-4.0) % Baso % (Auto) (0.0-2.0) % Neut # (Auto) (1.8-7.0) K/uL Lymph # (Auto) (1.0-4.3) K/uL Davis # (Auto) (0.0-0.8) K/uL Eos # (Auto) (0.0-0.7) K/uL Baso # (Auto) (0.0-0.2) K/uL Neutrophils % (Manual) (50-75) % Band Neutrophils % (0-2) % Lymphocytes % (Manual) (20-40) % Monocytes % (Manual) (0-10) % Platelet Estimate (NORMAL) APTT (21-34) SECONDS Sodium (132-148) mmol/L Potassium (3.6-5.2) mmol/L Chloride (98-107) mmol/L Carbon Dioxide (22-30) mmol/L Anion Gap (10-20) BUN (7-17) mg/dL Creatinine (0.7-1.2) mg/dL Est GFR ( Amer) Est GFR (Non-Af Amer) POC Glucose (mg/dL) 209 H (65-110) mg/dL Random Glucose (65-105) mg/dL Calcium (8.6-10.4) mg/dl Phosphorus (2.5-4.5) mg/dL Magnesium (1.6-2.3) mg/dL Total Bilirubin (0.2-1.3) mg/dL AST (14-36) U/L ALT (9-52) U/L Alkaline Phosphatase (38-126) U/L Total Creatine Kinase (30-135) U/L CK-MB (Mass) (0.0-3.38) ng/mL Troponin I (0.00-0.120) ng/mL Total Protein (6.3-8.3) g/dL Albumin (3.5-5.0) g/dL Globulin (2.2-3.9) gm/dL Albumin/Globulin Ratio (1.0-2.1) Procalcitonin 0.53 H (0.19-0.49) NG/ML Urine Color (YELLOW) Urine Clarity (Clear) Urine pH (5.0-8.0) Ur Specific [place] (1.003-1.030) Urine Protein (NEGATIVE) mg/dL Urine Glucose (UA) (Normal) mg/dL Urine Ketones (NEGATIVE) mg/dL Urine Blood (NEGATIVE) Urine Nitrate (NEGATIVE) Urine Bilirubin (NEGATIVE) Urine Urobilinogen (0.2-1.0) mg/dL Ur Leukocyte Esterase (Negative) Cristal/uL Urine WBC (Auto) (0-5) /hpf Urine RBC (Auto) (0-3) /hpf Ur Squamous Epith Cells (0-5) /hpf Urine Bacteria (<OCC) Hyaline Casts (0-2) /lpf Laboratory Results - last 24 hr 09/13/17 09/13/17 09/13/17 11:14 14:27 14:27 WBC RBC Hgb Hct MCV MCH MCHC RDW Plt Count MPV Neut % (Auto) Lymph % (Auto) Davis % (Auto) Eos % (Auto) Baso % (Auto) Neut # (Auto) Lymph # (Auto) Davis # (Auto) Eos # (Auto) Baso # (Auto) Neutrophils % (Manual) Band Neutrophils % Lymphocytes % (Manual) Monocytes % (Manual) Platelet Estimate APTT 51 H D Sodium Potassium Chloride Carbon Dioxide Anion Gap BUN Creatinine Est GFR ( Amer) Est GFR (Non-Af Amer) POC Glucose (mg/dL) 209 H Random Glucose Calcium Phosphorus Magnesium Total Bilirubin AST ALT Alkaline Phosphatase Total Creatine Kinase CK-MB (Mass) Troponin I Total Protein Albumin Globulin Albumin/Globulin Ratio Procalcitonin 0.53 H Urine Color Urine Clarity Urine pH Ur Specific [place] Urine Protein Urine Glucose (UA) Urine Ketones Urine Blood Urine Nitrate Urine Bilirubin Urine Urobilinogen Ur Leukocyte Esterase Urine WBC (Auto) Urine RBC (Auto) Ur Squamous Epith Cells Urine Bacteria Hyaline Casts 09/13/17 09/13/17 09/13/17 15:51 16:55 20:39 WBC RBC Hgb Hct MCV MCH MCHC RDW Plt Count MPV Neut % (Auto) Lymph % (Auto) Davis % (Auto) Eos % (Auto) Baso % (Auto) Neut # (Auto) Lymph # (Auto) Davis # (Auto) Eos # (Auto) Baso # (Auto) Neutrophils % (Manual) Band Neutrophils % Lymphocytes % (Manual) Monocytes % (Manual) Platelet Estimate APTT 67 H D Sodium Potassium Chloride Carbon Dioxide Anion Gap BUN Creatinine Est GFR ( Amer) Est GFR (Non-Af Amer) POC Glucose (mg/dL) 148 H Random Glucose Calcium Phosphorus Magnesium Total Bilirubin AST ALT Alkaline Phosphatase Total Creatine Kinase CK-MB (Mass) Troponin I Total Protein Albumin Globulin Albumin/Globulin Ratio Procalcitonin Urine Color Yellow Urine Clarity Hazy Urine pH 5.0 Ur Specific [place] 1.034 H Urine Protein Negative Urine Glucose (UA) Normal Urine Ketones Negative Urine Blood 1+ H Urine Nitrate Negative Urine Bilirubin Negative Urine Urobilinogen Normal Ur Leukocyte Esterase Neg Urine WBC (Auto) 2 Urine RBC (Auto) 7 H Ur Squamous Epith Cells 2 Urine Bacteria Rare Hyaline Casts 3-5 H 09/13/17 09/14/17 09/14/17 21:25 06:23 06:24 WBC 16.7 H RBC 4.21 Hgb 12.4 Hct 36.3 MCV 86.2 MCH 29.4 MCHC 34.1 RDW 14.7 H Plt Count 340 MPV 9.2 Neut % (Auto) 83.3 H Lymph % (Auto) 8.6 L Davis % (Auto) 7.9 Eos % (Auto) 0.0 Baso % (Auto) 0.2 Neut # (Auto) 13.9 H Lymph # (Auto) 1.4 Davis # (Auto) 1.3 H Eos # (Auto) 0.0 Baso # (Auto) 0.0 Neutrophils % (Manual) 82 H Band Neutrophils % 2 Lymphocytes % (Manual) 11 L Monocytes % (Manual) 5 Platelet Estimate Normal APTT Sodium 127 L Potassium 4.3 Chloride 96 L Carbon Dioxide 23 Anion Gap 13 BUN 27 H Creatinine 0.8 Est GFR ( Amer) > 60 Est GFR (Non-Af Amer) > 60 POC Glucose (mg/dL) 146 H Random Glucose 149 H Calcium 8.7 Phosphorus 2.9 Magnesium 2.1 Total Bilirubin 0.6 AST 174 H D ALT 55 H D Alkaline Phosphatase 74 Total Creatine Kinase 413 H CK-MB (Mass) 42.5 H Troponin I 61.7000 H* Total Protein 6.1 L Albumin 3.1 L Globulin 3.0 Albumin/Globulin Ratio 1.0 Procalcitonin Urine Color Urine Clarity Urine pH Ur Specific [place] Urine Protein Urine Glucose (UA) Urine Ketones Urine Blood Urine Nitrate Urine Bilirubin Urine Urobilinogen Ur Leukocyte Esterase Urine WBC (Auto) Urine RBC (Auto) Ur Squamous Epith Cells Urine Bacteria Hyaline Casts 09/14/17 09/14/17 06:24 07:48 WBC RBC Hgb Hct MCV MCH MCHC RDW Plt Count MPV Neut % (Auto) Lymph % (Auto) Davis % (Auto) Eos % (Auto) Baso % (Auto) Neut # (Auto) Lymph # (Auto) Davis # (Auto) Eos # (Auto) Baso # (Auto) Neutrophils % (Manual) Band Neutrophils % Lymphocytes % (Manual) Monocytes % (Manual) Platelet Estimate APTT 58 H D Sodium Potassium Chloride Carbon Dioxide Anion Gap BUN Creatinine Est GFR ( Amer) Est GFR (Non-Af Amer) POC Glucose (mg/dL) 142 H Random Glucose Calcium Phosphorus Magnesium Total Bilirubin AST ALT Alkaline Phosphatase Total Creatine Kinase CK-MB (Mass) Troponin I Total Protein Albumin Globulin Albumin/Globulin Ratio Procalcitonin Urine Color Urine Clarity Urine pH Ur Specific [place] Urine Protein Urine Glucose (UA) Urine Ketones Urine Blood Urine Nitrate Urine Bilirubin Urine Urobilinogen Ur Leukocyte Esterase Urine WBC (Auto) Urine RBC (Auto) Ur Squamous Epith Cells Urine Bacteria Hyaline Casts EKG/Cardiology Studies: Cardiology / EKG Studies 09/14/17 07:00 ELECTROCARDIOGRAM DAILY Comment: Mode Of Transportation: Reason For Exam: acs 09/15/17 07:00 ELECTROCARDIOGRAM DAILY Comment: Mode Of Transportation: Reason For Exam: acs Fingerstick Blood Sugar Results: 146 Review of Systems - Review of Systems All systems: reviewed and no additional remarkable complaints except (as above) Critical Care Progress Note - Nutrition Nutrition: Nutrition Category Date Time Status Heart Healthy Diet [DIET] Diets 09/12/17 Dinner Active Assessment/Plan - Assessment and Plan (Free Text) Assessment: 77 F with hx of DM2, HTN, PVD, active tobacco use with elevated troponins and ST elevations taken for cath and determined to have a completed infarct. Cardio: Dr Robledo on board On presentation, elevated troponins and Q waves in anterior leads and ST elevations in lateral leads - Code heart was called and patient taken to [facility] LAD: Proximal 100% occluded, EF 30%. Anterior wall and apex are hypokinetic It was concluded that its a completed infarct - Emergency PCI called off. Thallium viability study today to determine viability - If positive will go for high risk PCI Aspirin 81mg PO QD, Plavix 75mg PO QD, Heparin Drip, Crestor 20mg PO HS Losartan 25mg PO QD on HOLD due to low BP NS 250cc bolus administed x 1 dose for low BP Also with abnormal finding on LE duplex ultrasound LE duplex of Right CHRISTINA w/mild-moderate arterial insufficiency. LE duplex of Left ABIG w/moderate to severe arterial insufficiency. Dr Jose consulted * No vascular surgical intervention at this time Endo: DM Januvia 100mg PO QD Pulm: Duoneb INH RQ6 Psych: Anxiety Xanax 0.25mg PO BID PRN <Luther Nolan S - Last Filed: 09/14/17 17:16> CCU Objective - Vital Signs / Intake & Output Vital Signs (Last 4 hours): Vital Signs Temp Pulse Resp BP Pulse Ox 09/14/17 16:00 97.8 F 75 17 92/44 L 94 L 09/14/17 15:01 72 22 93/49 L 95 09/14/17 15:00 75 25 H 94 L 09/14/17 14:59 74 28 H 90/57 L 95 09/14/17 14:00 70 22 105/49 L 99 Intake and Output (Last 8hrs): Intake & Output 09/14/17 09/14/17 09/14/17 06:59 14:59 22:59 Intake Total 489.6 829.6 92.4 Output Total 200 Balance 289.6 829.6 92.4 Weight 114 lb 10.246 oz Intake: IV 250 Intake, IV Amount 369.6 579.6 92.4 Right Distal Port Hand 49.6 49.6 12.4 Right Hand 320 530 80 Oral 120 Output: Urine 200 Urine, Voided 200 Other: # Voids Urine, Voided 1 1 - Medications Active Medications: Active Medications Generic Name Dose Route Start Last Admin Trade Name Freq PRN Reason Stop Dose Admin Albuterol/Ipratropium 3 ml 09/13/17 14:00 09/14/17 13:31 Duoneb 3 Mg/0.5 Mg (3 Ml) Ud INH 3 ml RQ6 ROMMEL Administration Alprazolam 0.25 mg 09/14/17 10:23 Xanax PO 09/21/17 10:24 BID PRN Anxiety Aspirin 81 mg 09/13/17 10:00 09/14/17 11:05 Aspirin Chewable PO 81 mg DAILY ROMMEL Administration Clopidogrel Bisulfate 75 mg 09/13/17 10:00 09/14/17 11:05 Plavix PO 75 mg DAILY ROMMEL Administration Heparin Sodium/Sodium Chloride 25,000 units in 250 mls @ 6.237 mls/hr 13:14 09/14/17 08:56 Heparin 36671 Units/250ml 1/2 Normal Saline IV 11 units/kg/hr .Q24H PRN 6.237 mls/hr PROTOCOL Administration Protocol 11 UNITS/KG/HR Sodium Chloride 1,000 mls @ 50 mls/hr 09/14/17 16:15 Sodium Chloride 0.9% IV .Q20H ROMMEL Insulin Human Regular 0 unit 09/12/17 22:00 09/14/17 12:34 Novolin R SC Not Given ACHS ROMMEL Protocol Losartan Potassium 25 mg 09/13/17 10:00 09/13/17 10:05 Cozaar PO Not Given DAILY ROMMEL Nicotine 1 patch 09/13/17 10:00 09/14/17 11:05 Nicoderm Cq TD 1 patch DAILY ROMMEL Administration Rosuvastatin Calcium 20 mg 09/12/17 22:00 09/13/17 21:30 Crestor PO 20 mg HS ROMMEL Administration Sitagliptin Phosphate 100 mg 09/13/17 10:00 09/14/17 11:05 Januvia PO Not Given DAILY ROMMEL - Patient Studies Lab Studies: Lab Studies 09/14/17 09/14/17 09/14/17 Range/Units 16:27 11:40 07:48 WBC (4.8-10.8) K/uL RBC (3.80-5.20) Mil/uL Hgb (11.0-16.0) g/dL Hct (34.0-47.0) % MCV (81.0-99.0) fL MCH (27.0-31.0) pg MCHC (33.0-37.0) g/dL RDW (11.5-14.5) % Plt Count (130-400) K/uL MPV (7.2-11.7) fL Neut % (Auto) (50.0-75.0) % Lymph % (Auto) (20.0-40.0) % Davis % (Auto) (0.0-10.0) % Eos % (Auto) (0.0-4.0) % Baso % (Auto) (0.0-2.0) % Neut # (Auto) (1.8-7.0) K/uL Lymph # (Auto) (1.0-4.3) K/uL Davis # (Auto) (0.0-0.8) K/uL Eos # (Auto) (0.0-0.7) K/uL Baso # (Auto) (0.0-0.2) K/uL Neutrophils % (Manual) (50-75) % Band Neutrophils % (0-2) % Lymphocytes % (Manual) (20-40) % Monocytes % (Manual) (0-10) % Platelet Estimate (NORMAL) APTT (21-34) SECONDS Sodium (132-148) mmol/L Potassium (3.6-5.2) mmol/L Chloride (98-107) mmol/L Carbon Dioxide (22-30) mmol/L Anion Gap (10-20) BUN (7-17) mg/dL Creatinine (0.7-1.2) mg/dL Est GFR ( Amer) Est GFR (Non-Af Amer) POC Glucose (mg/dL) 162 H 135 H 142 H (65-110) mg/dL Random Glucose (65-105) mg/dL Calcium (8.6-10.4) mg/dl Phosphorus (2.5-4.5) mg/dL Magnesium (1.6-2.3) mg/dL Total Bilirubin (0.2-1.3) mg/dL AST (14-36) U/L ALT (9-52) U/L Alkaline Phosphatase (38-126) U/L Total Creatine Kinase (30-135) U/L CK-MB (Mass) (0.0-3.38) ng/mL Troponin I (0.00-0.120) ng/mL Total Protein (6.3-8.3) g/dL Albumin (3.5-5.0) g/dL Globulin (2.2-3.9) gm/dL Albumin/Globulin Ratio (1.0-2.1) 09/14/17 09/14/17 09/14/17 Range/Units 06:24 06:24 06:23 WBC 16.7 H (4.8-10.8) K/uL RBC 4.21 (3.80-5.20) Mil/uL Hgb 12.4 (11.0-16.0) g/dL Hct 36.3 (34.0-47.0) % MCV 86.2 (81.0-99.0) fL MCH 29.4 (27.0-31.0) pg MCHC 34.1 (33.0-37.0) g/dL RDW 14.7 H (11.5-14.5) % Plt Count 340 (130-400) K/uL MPV 9.2 (7.2-11.7) fL Neut % (Auto) 83.3 H (50.0-75.0) % Lymph % (Auto) 8.6 L (20.0-40.0) % Davis % (Auto) 7.9 (0.0-10.0) % Eos % (Auto) 0.0 (0.0-4.0) % Baso % (Auto) 0.2 (0.0-2.0) % Neut # (Auto) 13.9 H (1.8-7.0) K/uL Lymph # (Auto) 1.4 (1.0-4.3) K/uL Davis # (Auto) 1.3 H (0.0-0.8) K/uL Eos # (Auto) 0.0 (0.0-0.7) K/uL Baso # (Auto) 0.0 (0.0-0.2) K/uL Neutrophils % (Manual) 82 H (50-75) % Band Neutrophils % 2 (0-2) % Lymphocytes % (Manual) 11 L (20-40) % Monocytes % (Manual) 5 (0-10) % Platelet Estimate Normal (NORMAL) APTT 58 H D (21-34) SECONDS Sodium 127 L (132-148) mmol/L Potassium 4.3 (3.6-5.2) mmol/L Chloride 96 L (98-107) mmol/L Carbon Dioxide 23 (22-30) mmol/L Anion Gap 13 (10-20) BUN 27 H (7-17) mg/dL Creatinine 0.8 (0.7-1.2) mg/dL Est GFR ( Amer) > 60 Est GFR (Non-Af Amer) > 60 POC Glucose (mg/dL) (65-110) mg/dL Random Glucose 149 H (65-105) mg/dL Calcium 8.7 (8.6-10.4) mg/dl Phosphorus 2.9 (2.5-4.5) mg/dL Magnesium 2.1 (1.6-2.3) mg/dL Total Bilirubin 0.6 (0.2-1.3) mg/dL AST 174 H D (14-36) U/L ALT 55 H D (9-52) U/L Alkaline Phosphatase 74 (38-126) U/L Total Creatine Kinase 413 H (30-135) U/L CK-MB (Mass) 42.5 H (0.0-3.38) ng/mL Troponin I 61.7000 H* (0.00-0.120) ng/mL Total Protein 6.1 L (6.3-8.3) g/dL Albumin 3.1 L (3.5-5.0) g/dL Globulin 3.0 (2.2-3.9) gm/dL Albumin/Globulin Ratio 1.0 (1.0-2.1) 09/13/17 09/13/17 Range/Units 21:25 20:39 WBC (4.8-10.8) K/uL RBC (3.80-5.20) Mil/uL Hgb (11.0-16.0) g/dL Hct (34.0-47.0) % MCV (81.0-99.0) fL MCH (27.0-31.0) pg MCHC (33.0-37.0) g/dL RDW (11.5-14.5) % Plt Count (130-400) K/uL MPV (7.2-11.7) fL Neut % (Auto) (50.0-75.0) % Lymph % (Auto) (20.0-40.0) % Davis % (Auto) (0.0-10.0) % Eos % (Auto) (0.0-4.0) % Baso % (Auto) (0.0-2.0) % Neut # (Auto) (1.8-7.0) K/uL Lymph # (Auto) (1.0-4.3) K/uL Davis # (Auto) (0.0-0.8) K/uL Eos # (Auto) (0.0-0.7) K/uL Baso # (Auto) (0.0-0.2) K/uL Neutrophils % (Manual) (50-75) % Band Neutrophils % (0-2) % Lymphocytes % (Manual) (20-40) % Monocytes % (Manual) (0-10) % Platelet Estimate (NORMAL) APTT 67 H D (21-34) SECONDS Sodium (132-148) mmol/L Potassium (3.6-5.2) mmol/L Chloride (98-107) mmol/L Carbon Dioxide (22-30) mmol/L Anion Gap (10-20) BUN (7-17) mg/dL Creatinine (0.7-1.2) mg/dL Est GFR ( Amer) Est GFR (Non-Af Amer) POC Glucose (mg/dL) 146 H (65-110) mg/dL Random Glucose (65-105) mg/dL Calcium (8.6-10.4) mg/dl Phosphorus (2.5-4.5) mg/dL Magnesium (1.6-2.3) mg/dL Total Bilirubin (0.2-1.3) mg/dL AST (14-36) U/L ALT (9-52) U/L Alkaline Phosphatase (38-126) U/L Total Creatine Kinase (30-135) U/L CK-MB (Mass) (0.0-3.38) ng/mL Troponin I (0.00-0.120) ng/mL Total Protein (6.3-8.3) g/dL Albumin (3.5-5.0) g/dL Globulin (2.2-3.9) gm/dL Albumin/Globulin Ratio (1.0-2.1) Laboratory Results - last 24 hr 09/13/17 09/13/17 09/14/17 20:39 21:25 06:23 WBC RBC Hgb Hct MCV MCH MCHC RDW Plt Count MPV Neut % (Auto) Lymph % (Auto) Davis % (Auto) Eos % (Auto) Baso % (Auto) Neut # (Auto) Lymph # (Auto) Davis # (Auto) Eos # (Auto) Baso # (Auto) Neutrophils % (Manual) Band Neutrophils % Lymphocytes % (Manual) Monocytes % (Manual) Platelet Estimate APTT 67 H D Sodium 127 L Potassium 4.3 Chloride 96 L Carbon Dioxide 23 Anion Gap 13 BUN 27 H Creatinine 0.8 Est GFR ( Amer) > 60 Est GFR (Non-Af Amer) > 60 POC Glucose (mg/dL) 146 H Random Glucose 149 H Calcium 8.7 Phosphorus 2.9 Magnesium 2.1 Total Bilirubin 0.6 AST 174 H D ALT 55 H D Alkaline Phosphatase 74 Total Creatine Kinase 413 H CK-MB (Mass) 42.5 H Troponin I 61.7000 H* Total Protein 6.1 L Albumin 3.1 L Globulin 3.0 Albumin/Globulin Ratio 1.0 09/14/17 09/14/17 09/14/17 06:24 06:24 07:48 WBC 16.7 H RBC 4.21 Hgb 12.4 Hct 36.3 MCV 86.2 MCH 29.4 MCHC 34.1 RDW 14.7 H Plt Count 340 MPV 9.2 Neut % (Auto) 83.3 H Lymph % (Auto) 8.6 L Davis % (Auto) 7.9 Eos % (Auto) 0.0 Baso % (Auto) 0.2 Neut # (Auto) 13.9 H Lymph # (Auto) 1.4 Davis # (Auto) 1.3 H Eos # (Auto) 0.0 Baso # (Auto) 0.0 Neutrophils % (Manual) 82 H Band Neutrophils % 2 Lymphocytes % (Manual) 11 L Monocytes % (Manual) 5 Platelet Estimate Normal APTT 58 H D Sodium Potassium Chloride Carbon Dioxide Anion Gap BUN Creatinine Est GFR ( Amer) Est GFR (Non-Af Amer) POC Glucose (mg/dL) 142 H Random Glucose Calcium Phosphorus Magnesium Total Bilirubin AST ALT Alkaline Phosphatase Total Creatine Kinase CK-MB (Mass) Troponin I Total Protein Albumin Globulin Albumin/Globulin Ratio 09/14/17 09/14/17 11:40 16:27 WBC RBC Hgb Hct MCV MCH MCHC RDW Plt Count MPV Neut % (Auto) Lymph % (Auto) Davis % (Auto) Eos % (Auto) Baso % (Auto) Neut # (Auto) Lymph # (Auto) Davis # (Auto) Eos # (Auto) Baso # (Auto) Neutrophils % (Manual) Band Neutrophils % Lymphocytes % (Manual) Monocytes % (Manual) Platelet Estimate APTT Sodium Potassium Chloride Carbon Dioxide Anion Gap BUN Creatinine Est GFR ( Amer) Est GFR (Non-Af Amer) POC Glucose (mg/dL) 135 H 162 H Random Glucose Calcium Phosphorus Magnesium Total Bilirubin AST ALT Alkaline Phosphatase Total Creatine Kinase CK-MB (Mass) Troponin I Total Protein Albumin Globulin Albumin/Globulin Ratio EKG/Cardiology Studies: Cardiology / EKG Studies 09/14/17 07:00 ELECTROCARDIOGRAM DAILY Comment: Mode Of Transportation: Reason For Exam: acs 09/15/17 07:00 ELECTROCARDIOGRAM DAILY Comment: Mode Of Transportation: Reason For Exam: acs Critical Care Progress Note - Nutrition Nutrition: Nutrition Category Date Time Status Consistent Carbohydrate [DIET] Diets 09/15/17 Breakfast Active Heart Healthy Diet [DIET] Diets 09/12/17 Dinner Active Attending/Attestation - Attestation I have personally seen and examined this patient.: Yes I have fully participated in the care of the patient.: Yes I have reviewed all pertinent clinical information: Yes Notes (Text): 09/14/17 17:15 patient seen and examined in the intensive care unit. Case discussed with house staff in the morning. For viability study today and to determine further management Continue present treatment for now
--- NOTE | 2017-09-14 12:31 | CARD ---
APPROVED REPORT EKG Measurement Heart [id number] MD [id number] <Conclusion> Sinus bradycardia with premature atrial complexes Left anterior fascicular block Cannot rule out Anterior infarct, age undetermined ST & T wave abnormality, consider lateral ischemia Abnormal ECG
[2017-09-14] MEDS: Sodium Chloride 0.9% 1,000 ML IV SCH (17:52)
--- NOTE | 2017-09-14 21:00 | CARD ---
APPROVED REPORT EXAM: Two-dimensional and M-mode echocardiogram with Doppler and color Doppler. Other Information Quality : [employer] : INDICATION ACS, VERTIGO RISK FACTORS Hypertension Diabetes 2D DIMENSIONS IVSd0.8 (0.7-1.1cm)LVDd5.5 (3.9-5.9cm) PWd1.0 (0.7-1.1cm)LVDs4.6 (2.5-4.0cm) FS (%) 15.5 %LVEF (%)32.4 (>50%) M-Mode DIMENSIONS Left Atrium (MM)3.59 (2.5-4.0cm)Aortic Root2.94 (2.2-3.7cm) Aortic Cusp Exc.1.95 (1.5-2.0cm) Aortic Valve AI P 1/2 [id number] Mitral Valve MV E Nbveckux94.9cm/sMV A Liqxqdhj955.1cm/sE/A ratio0.6 TDI E/Lateral E'0.0E/Medial E'0.0 Tricuspid Valve TR Peak [id number]/sTR Peak Gr.[id number] LEFT VENTRICLE The Left Ventricle is moderately dilated. There is normal left ventricular wall thickness. Left ventricle systolic function is severely impaired. The Ejection Fraction is 10-15%. There is severe global hypokinesis of the left ventricle. Tissue Doppler imaging reveals abnormal left ventricular diastolic dysfunction. No left ventricle thrombus noted on this study. RIGHT VENTRICLE The right ventricle is normal size. There is normal right ventricular wall thickness. Systolic function is severely reduced. ATRIA The left atrium is mildly dilated. The right atrium size is normal. The interatrial septum bows toward right atrium consistent with elevated left atrial pressure. AORTIC VALVE The aortic valve is thickened and calcified but opens well. There is mild aortic regurgitation. There is no aortic valvular stenosis. MITRAL VALVE The mitral valve is normal in structure. There is no evidence of mitral valve prolapse. There is no mitral valve stenosis. Mitral regurgitation is mild. TRICUSPID VALVE The tricuspid valve is normal in structure. There is mild tricuspid regurgitation. Right ventricular systolic pressure is estimated at 40-50 mmHg. There is mild-moderate pulmonary hypertension. PULMONIC VALVE The pulmonary valve is normal in structure. There is mild pulmonic valvular regurgitation. GREAT VESSELS The aortic root is normal in size. PERICARDIAL EFFUSION There is no significant pericardial effusion. <Conclusion> Left ventricle systolic function is severely impaired. The Ejection Fraction is 10-15%. Diastolic dysfunction. There is mild aortic regurgitation. Mitral regurgitation is mild. There is mild tricuspid regurgitation. There is mild-moderate pulmonary hypertension. There is mild pulmonic valvular regurgitation.
[2017-09-14] MEDS ORDERED: Iodixanol 320 mg/ml 150 ml Bottle IV ONE (21:44)
--- NOTE | 2017-09-14 22:30 | CT ---
EXAM: CT Angiography Abdomen and Pelvis With Runoff to the Lower Extremities With Intravenous Contrast CLINICAL HISTORY: 77 years old, female; Pain and signs and symptoms; Foot pain; Left; Additional info: Pad TECHNIQUE: Axial computed tomographic angiography images of the abdomen, pelvis and lower extremities with intravenous contrast using CT angiography protocol. All CT scans at this facility use one or more dose reduction techniques, viz.: automated exposure control; ma/kV adjustment per patient size (including targeted exams where dose is matched to indication; i.e. head); or iterative reconstruction technique. 3D reconstructed images were created and reviewed. Coronal and sagittal reformatted images were created and reviewed. CONTRAST: 150 mL of visipaque 320 administered intravenously. COMPARISON: No relevant prior studies available. FINDINGS: Lower thorax: Small to moderate bilateral pleural effusions. Consolidation at both lung bases. Mild cardiomegaly. Coronary artery calcifications. VASCULATURE: Aorta: No acute findings. No abdominal aortic aneurysm. No dissection. Celiac trunk and mesenteric arteries: No acute findings. No occlusion or significant stenosis. Renal arteries: No acute findings. No occlusion or significant stenosis. Right iliac arteries: No acute findings. No occlusion or significant stenosis. Right femoral/popliteal arteries: No acute findings. No occlusion or significant stenosis. Right calf/foot arteries: No acute findings. Left iliac arteries: No acute findings. No occlusion or significant stenosis. Left femoral/popliteal arteries: Segmental occlusion in the proximal left superficial femoral artery. Left calf/foot arteries: No acute findings. ABDOMEN: Liver: Hepatic steatosis. Gallbladder and bile ducts: Unremarkable. No calcified stones. No ductal dilation. Pancreas: Unremarkable. No ductal dilation. No mass. Spleen: Unremarkable. No splenomegaly. Adrenals: Unremarkable. No mass. Kidneys and ureters: 1.9 CM right renal cyst. The left kidney is unremarkable. No hydronephrosis. Stomach and bowel: Unremarkable. No obstruction. No mucosal thickening. Appendix: No findings to suggest acute appendicitis. PELVIS: Bladder: Unremarkable. No mass. Reproductive: Unremarkable as visualized. ABDOMEN, PELVIS and LOWER EXTREMITIES: Intraperitoneal space: Unremarkable. No significant fluid collection. No free air. Bones/joints: Diffuse spinal degenerative changes. Internal fixation distal right fibula. Moderate to severe osteoarthritis both knees. No acute fracture. No dislocation. Soft tissues: Unremarkable. Lymph nodes: Unremarkable. No enlarged lymph nodes. IMPRESSION: 1. Segmental occlusion of the proximal left superficial femoral artery. 2. Small to moderate bilateral pleural effusions. 3. Bilateral basilar consolidation. 4. Remainder of findings as above.
--- NOTE | 2017-09-14 22:54 | CP.PCM.PN ---
Subjective - Date & Time of Evaluation Date of Evaluation: 09/14/17 Time of Evaluation: 18:30 - Subjective Subjective: Pt is post cardiac cath, she is for viable myocardiac studies tomorrow, she is anxious other ruiz feels better on medical managment and ICu monitoring Objective - Vital Signs/Intake and Output Vital Signs (last 24 hours): Temp Pulse Resp BP Pulse Ox 98.6 F 89 21 97/46 L 97 09/14/17 20:00 09/14/17 22:03 09/14/17 22:03 09/14/17 22:03 09/14/17 22:03 Intake and Output: 09/14/17 09/15/17 18:59 06:59 Intake Total 1024.4 224.8 Output Total 300 0 Balance 724.4 224.8 - Medications Medications: Current Medications Albuterol/Ipratropium (Duoneb 3 Mg/0.5 Mg (3 Ml) Ud) 3 ml INH RQ6 [facility] Last Admin: 09/14/17 19:09 Dose: 3 ml Alprazolam (Xanax) 0.25 mg PO BID PRN PRN Reason: Anxiety Stop: 09/21/17 10:24 Aspirin (Aspirin Chewable) 81 mg PO DAILY [facility] Last Admin: 09/14/17 11:05 Dose: 81 mg Clopidogrel Bisulfate (Plavix) 75 mg PO DAILY [facility] Last Admin: 09/14/17 11:05 Dose: 75 mg Heparin Sodium/Sodium Chloride (Heparin 27683 Units/250ml 1/2 Normal Saline) 25 ,000 units in 250 mls @ 6.237 mls/hr IV .Q24H PRN; Protocol; 11 UNITS/KG/HR PRN Reason: PROTOCOL Last Admin: 09/14/17 08:56 Dose: 11 units/kg/hr, 6.237 mls/hr Sodium Chloride (Sodium Chloride 0.9%) 1,000 mls @ 50 mls/hr IV .Q20H [facility] Last Admin: 09/14/17 17:52 Dose: 50 mls/hr Insulin Human Regular (Novolin R) 0 unit SC ACHS ROMMEL PRN Reason: Protocol Last Admin: 09/14/17 22:13 Dose: Not Given Losartan Potassium (Cozaar) 25 mg PO DAILY [facility] Last Admin: 09/13/17 10:05 Dose: Not Given Nicotine (Nicoderm Cq) 1 patch TD DAILY [facility] Last Admin: 09/14/17 11:05 Dose: 1 patch Rosuvastatin Calcium (Crestor) 20 mg PO HS [facility] Last Admin: 09/14/17 22:12 Dose: 20 mg Sitagliptin Phosphate (Januvia) 100 mg PO DAILY [facility] Last Admin: 09/14/17 11:05 Dose: Not Given - Labs Labs: 09/14/17 06:24 09/14/17 06:23 PT 10.9 SECONDS (9.7-12.2) 09/12/17 19:45 INR 1.0 09/12/17 19:45 APTT 58 SECONDS (21-34) H D 09/14/17 06:24 - Constitutional Appears: No Acute Distress - Head Exam Head Exam: ATRAUMATIC, NORMAL INSPECTION, NORMOCEPHALIC - Eye Exam Eye Exam: EOMI, Normal appearance, PERRL Pupil Exam: NORMAL ACCOMODATION, PERRL - Respiratory Exam Respiratory Exam: Decreased Breath Sounds, Rales, Rhonchi - Cardiovascular Exam Cardiovascular Exam: REGULAR RHYTHM, +S1, +S2. absent: Murmur - GI/Abdominal Exam GI & Abdominal Exam: Soft, Normal Bowel Sounds. absent: Tenderness Assessment and Plan (1) STEMI (ST elevation myocardial infarction) Status: Acute (2) Carotid atherosclerosis Status: Acute (3) Dementia Status: Acute (4) Diabetes mellitus type 2 in nonobese Status: Chronic (5) Hypertension Status: Chronic
[2017-09-15] MEDS: Albuterol-Ipratrop 3 mg / 0.5 (3 ml) UD INH SCH ×4 (01:57→20:08)
[2017-09-15 06:24] LABS: BASO % 0.2 % (0.0-2.0); EOS % 0.2 % (0.0-4.0); LYMPH # 1.8 K/uL (1.0-4.3); LYMPH % 12.9 % (20.0-40.0); MEAN CELL VOLUME 87.8 fL (81.0-99.0); MEAN CORPUSCULAR HEMOGLOBIN 28.4 pg (27.0-31.0); MEAN CORPUSCULAR HGB CONC 32.4 g/dL (33.0-37.0); MEAN PLATELET VOLUME 9.4 fL (7.2-11.7); MONO # 1.1 K/uL (0.0-0.8); NEUT # 11.1 K/uL (1.8-7.0); NEUT % 78.7 % (50.0-75.0); RBC 4.21 Mil/uL (3.80-5.20); RED CELL DISTRIBUTION WIDTH 14.8 % (11.5-14.5); WHITE BLOOD COUNT 14.1 K/uL (4.8-10.8)
[2017-09-15 06:36] LABS: ALB/GLOB RATIO 0.9 (1.0-2.1); ALT/SGPT 38 U/L (9-52); AST/SGOT 83 U/L (14-36); BLOOD UREA NITROGEN 20 mg/dL (7-17); CALCIUM 8.1 mg/dl (8.6-10.4); GFR AFRICAN-AMERICAN > 60; GFR NON-AFRICAN AMERICAN > 60
[2017-09-15] MEDS: (Novolin R) Insulin Human Regular 100 units/ml vial SC SCH ×4 (08:16→22:00)
--- NOTE | 2017-09-15 11:59 | CP.CCUPN ---
<OriKrishna Sommer - Last Filed: 09/15/17 11:56> CCU Subjective - Physician Review Subjective (Free Text): Patient seen and examined. Patient denies chest pain or palpitations. To go for second part of myocardium viability study today to see if candidate for high- risk PCI. CCU Objective - Vital Signs / Intake & Output Vital Signs (Last 4 hours): Vital Signs Temp Pulse Resp BP 09/15/17 11:11 78 09/15/17 10:00 84 26 H 94/51 L 09/15/17 09:00 83 27 H 93/49 L 09/15/17 08:00 98.4 F 72 27 H 93/50 L Intake and Output (Last 8hrs): Intake & Output 09/14/17 09/15/17 09/15/17 22:59 06:59 14:59 Intake Total 419.6 449.6 587.9 Output Total 300 200 300 Balance 119.6 249.6 287.9 Weight 112 lb 14.027 oz 112 lb Intake: IV 0 Intake, IV Amount 419.6 449.6 287.9 Right Distal Port Hand 49.6 49.6 37.9 Right Hand 370 400 250 Oral 300 Output: Urine 300 200 300 Urine, Voided 300 200 300 Other: # Voids Urine, Voided 1 0 # Bowel Movements 0 - Physical Exam Head: Positive for: Atraumatic, Normocephalic. Negative for: Tenderness, Laceration Pupils: Positive for: PERRL Extroacular Muscles: Positive for: EOMI Conjunctiva: Positive for: Normal Mouth: Positive for: Moist Mucous Membranes. Negative for: Normal Teeth Neck: Positive for: Normal Range of Motion Respiratory/Chest: Positive for: Clear to Auscultation, Good Air Exchange Cardiovascular: Positive for: Regular Rate and Rhythm, Normal S1, S2 Abdomen: Positive for: Normal Bowel Sounds. Negative for: Tenderness, Distention Upper Extremity: Positive for: Normal Inspection. Negative for: Cyanosis Lower Extremity: Positive for: Normal Inspection. Negative for: Edema Skin: Positive for: Warm, Dry, Normal Color Psychiatric: Positive for: Alert - Medications Active Medications: Active Medications Generic Name Dose Route Start Last Admin Trade Name Freq PRN Reason Stop Dose Admin Albuterol/Ipratropium 3 ml 09/13/17 14:00 09/15/17 08:21 Duoneb 3 Mg/0.5 Mg (3 Ml) Ud INH 3 ml RQ6 ROMMEL Administration Alprazolam 0.25 mg 09/14/17 10:23 09/15/17 03:11 Xanax PO 09/21/17 10:24 0.25 mg BID PRN Administration Anxiety Aspirin 81 mg 09/13/17 10:00 09/15/17 09:06 Aspirin Chewable PO 81 mg DAILY ROMMEL Administration Clopidogrel Bisulfate 75 mg 09/13/17 10:00 09/15/17 09:06 Plavix PO 75 mg DAILY ROMMEL Administration Heparin Sodium/Sodium Chloride 25,000 units in 250 mls @ 6.237 mls/hr 13:14 09/15/17 08:01 Heparin 44600 Units/250ml 1/2 Normal Saline IV 15 units/kg/hr .Q24H PRN 8.505 mls/hr PROTOCOL Titration Protocol 11 UNITS/KG/HR Sodium Chloride 1,000 mls @ 50 mls/hr 09/14/17 16:15 09/14/17 17:52 Sodium Chloride 0.9% IV 50 mls/hr .Q20H ROMMEL Administration Insulin Human Regular 0 unit 09/12/17 22:00 09/15/17 08:16 Novolin R SC Not Given ACHS ROMMEL Protocol Losartan Potassium 25 mg 09/13/17 10:00 09/13/17 10:05 Cozaar PO Not Given DAILY ROMMEL Nicotine 1 patch 09/13/17 10:00 09/15/17 09:06 Nicoderm Cq TD 1 patch DAILY ROMMEL Administration Rosuvastatin Calcium 20 mg 09/12/17 22:00 09/14/17 22:12 Crestor PO 20 mg HS ROMMEL Administration Sitagliptin Phosphate 100 mg 09/13/17 10:00 09/15/17 09:06 Januvia PO 100 mg DAILY ROMMEL Administration - Patient Studies Lab Studies: Microbiology Studies 09/12/17 21:18 MRSA Culture (Admit) - Final Nose MRSA NOT DETECTED Lab Studies 09/15/17 09/15/17 09/15/17 Range/Units 07:09 06:18 06:18 WBC 14.1 H (4.8-10.8) K/uL RBC 4.21 (3.80-5.20) Mil/uL Hgb 12.0 (11.0-16.0) g/dL Hct 36.9 (34.0-47.0) % MCV 87.8 (81.0-99.0) fL MCH 28.4 (27.0-31.0) pg MCHC 32.4 L (33.0-37.0) g/dL RDW 14.8 H (11.5-14.5) % Plt Count 344 (130-400) K/uL MPV 9.4 (7.2-11.7) fL Neut % (Auto) 78.7 H (50.0-75.0) % Lymph % (Auto) 12.9 L (20.0-40.0) % [place] % (Auto) 8.0 (0.0-10.0) % Eos % (Auto) 0.2 (0.0-4.0) % Baso % (Auto) 0.2 (0.0-2.0) % Neut # (Auto) 11.1 H (1.8-7.0) K/uL Lymph # (Auto) 1.8 (1.0-4.3) K/uL [place] # (Auto) 1.1 H (0.0-0.8) K/uL Eos # (Auto) 0.0 (0.0-0.7) K/uL Baso # (Auto) 0.0 (0.0-0.2) K/uL APTT 19 L D (21-34) SECONDS Sodium (132-148) mmol/L Potassium (3.6-5.2) mmol/L Chloride (98-107) mmol/L Carbon Dioxide (22-30) mmol/L Anion Gap (10-20) BUN (7-17) mg/dL Creatinine (0.7-1.2) mg/dL Est GFR ( Amer) Est GFR (Non-Af Amer) POC Glucose (mg/dL) 124 H (65-110) mg/dL Random Glucose (65-105) mg/dL Calcium (8.6-10.4) mg/dl Phosphorus (2.5-4.5) mg/dL Magnesium (1.6-2.3) mg/dL Total Bilirubin (0.2-1.3) mg/dL AST (14-36) U/L ALT (9-52) U/L Alkaline Phosphatase (38-126) U/L Total Creatine Kinase (30-135) U/L CK-MB (Mass) (0.0-3.38) ng/mL Troponin I (0.00-0.120) ng/mL Total Protein (6.3-8.3) g/dL Albumin (3.5-5.0) g/dL Globulin (2.2-3.9) gm/dL Albumin/Globulin Ratio (1.0-2.1) 09/15/17 09/14/17 09/14/17 Range/Units 06:17 21:04 16:27 WBC (4.8-10.8) K/uL RBC (3.80-5.20) Mil/uL Hgb (11.0-16.0) g/dL Hct (34.0-47.0) % MCV (81.0-99.0) fL MCH (27.0-31.0) pg MCHC (33.0-37.0) g/dL RDW (11.5-14.5) % Plt Count (130-400) K/uL MPV (7.2-11.7) fL Neut % (Auto) (50.0-75.0) % Lymph % (Auto) (20.0-40.0) % [place] % (Auto) (0.0-10.0) % Eos % (Auto) (0.0-4.0) % Baso % (Auto) (0.0-2.0) % Neut # (Auto) (1.8-7.0) K/uL Lymph # (Auto) (1.0-4.3) K/uL [place] # (Auto) (0.0-0.8) K/uL Eos # (Auto) (0.0-0.7) K/uL Baso # (Auto) (0.0-0.2) K/uL APTT (21-34) SECONDS Sodium 128 L (132-148) mmol/L Potassium 4.1 (3.6-5.2) mmol/L Chloride 99 (98-107) mmol/L Carbon Dioxide 21 L (22-30) mmol/L Anion Gap 13 (10-20) BUN 20 H (7-17) mg/dL Creatinine 0.7 (0.7-1.2) mg/dL Est GFR ( Amer) > 60 Est GFR (Non-Af Amer) > 60 POC Glucose (mg/dL) 193 H 162 H (65-110) mg/dL Random Glucose 99 (65-105) mg/dL Calcium 8.1 L (8.6-10.4) mg/dl Phosphorus 3.0 (2.5-4.5) mg/dL Magnesium 2.0 (1.6-2.3) mg/dL Total Bilirubin 0.4 (0.2-1.3) mg/dL AST 83 H D (14-36) U/L ALT 38 (9-52) U/L Alkaline Phosphatase 102 (38-126) U/L Total Creatine Kinase 185 H (30-135) U/L CK-MB (Mass) 16.0 H (0.0-3.38) ng/mL Troponin I 43.5000 H* (0.00-0.120) ng/mL Total Protein 6.2 L (6.3-8.3) g/dL Albumin 3.0 L (3.5-5.0) g/dL Globulin 3.2 (2.2-3.9) gm/dL Albumin/Globulin Ratio 0.9 L (1.0-2.1) Laboratory Results - last 24 hr 09/14/17 09/14/17 09/15/17 16:27 21:04 06:17 WBC RBC Hgb Hct MCV MCH MCHC RDW Plt Count MPV Neut % (Auto) Lymph % (Auto) [place] % (Auto) Eos % (Auto) Baso % (Auto) Neut # (Auto) Lymph # (Auto) [place] # (Auto) Eos # (Auto) Baso # (Auto) APTT Sodium 128 L Potassium 4.1 Chloride 99 Carbon Dioxide 21 L Anion Gap 13 BUN 20 H Creatinine 0.7 Est GFR ( Amer) > 60 Est GFR (Non-Af Amer) > 60 POC Glucose (mg/dL) 162 H 193 H Random Glucose 99 Calcium 8.1 L Phosphorus 3.0 Magnesium 2.0 Total Bilirubin 0.4 AST 83 H D ALT 38 Alkaline Phosphatase 102 Total Creatine Kinase 185 H CK-MB (Mass) 16.0 H Troponin I 43.5000 H* Total Protein 6.2 L Albumin 3.0 L Globulin 3.2 Albumin/Globulin Ratio 0.9 L 09/15/17 09/15/17 09/15/17 06:18 06:18 07:09 WBC 14.1 H RBC 4.21 Hgb 12.0 Hct 36.9 MCV 87.8 MCH 28.4 MCHC 32.4 L RDW 14.8 H Plt Count 344 MPV 9.4 Neut % (Auto) 78.7 H Lymph % (Auto) 12.9 L [place] % (Auto) 8.0 Eos % (Auto) 0.2 Baso % (Auto) 0.2 Neut # (Auto) 11.1 H Lymph # (Auto) 1.8 [place] # (Auto) 1.1 H Eos # (Auto) 0.0 Baso # (Auto) 0.0 APTT 19 L D Sodium Potassium Chloride Carbon Dioxide Anion Gap BUN Creatinine Est GFR ( Amer) Est GFR (Non-Af Amer) POC Glucose (mg/dL) 124 H Random Glucose Calcium Phosphorus Magnesium Total Bilirubin AST ALT Alkaline Phosphatase Total Creatine Kinase CK-MB (Mass) Troponin I Total Protein Albumin Globulin Albumin/Globulin Ratio EKG/Cardiology Studies: Cardiology / EKG Studies 09/15/17 07:00 ELECTROCARDIOGRAM DAILY Comment: Mode Of Transportation: Reason For Exam: acs Fingerstick Blood Sugar Results: 193 Review of Systems - Review of Systems All systems: reviewed and no additional remarkable complaints except (as above) Critical Care Progress Note - Nutrition Nutrition: Nutrition Category Date Time Status Consistent Carbohydrate [DIET] Diets 09/15/17 Breakfast Active Assessment/Plan - Assessment and Plan (Free Text) Assessment: 77 F with hx of DM2, HTN, PVD, active tobacco use with elevated troponins and ST elevations taken for cath and determined to have a completed infarct. Cardio: Dr Robledo on board On presentation, elevated troponins and Q waves in anterior leads and ST elevations in lateral leads - Code heart was called and patient taken to laborer livestock LAD: Proximal 100% occluded, EF 30%. Anterior wall and apex are hypokinetic It was concluded that its a completed infarct - Emergency PCI called off. Thallium viability study today to determine viability - If positive will go for high risk PCI Continue Aspirin 81mg PO QD, Plavix 75mg PO QD, Heparin Drip, Crestor 20mg PO HS Losartan 25mg PO QD on HOLD due to low BP NS 250cc bolus administed x 1 dose for low BP Maintenance fluid NS Also with abnormal finding on LE duplex ultrasound LE duplex of Right CHRISTINA w/mild-moderate arterial insufficiency. LE duplex of Left ABIG w/moderate to severe arterial insufficiency. Dr Jose consulted * No vascular surgical intervention at this time Endo: DM Januvia 100mg PO QD Pulm: Duoneb INH RQ6 Psych: Anxiety Xanax 0.25mg PO BID PRN Nicotine patch <JesseniafTico M - Last Filed: 09/15/17 15:36> CCU Objective - Vital Signs / Intake & Output Vital Signs (Last 4 hours): Vital Signs Temp Pulse Resp BP Pulse Ox 09/15/17 15:00 75 30 H 100 09/15/17 14:00 70 21 100/54 L 100 09/15/17 13:00 72 28 H 90/52 L 09/15/17 12:00 97.7 F 76 11 L 96/60 L 97 Intake and Output (Last 8hrs): Intake & Output 09/15/17 09/15/17 09/15/17 06:59 14:59 22:59 Intake Total 449.6 861.1 Output Total 200 500 Balance 249.6 361.1 Weight 112 lb 14.027 oz 112 lb Intake: IV 0 Intake, IV Amount 449.6 561.1 Right Distal Port Hand 49.6 61.1 Right Hand 400 500 Oral 300 Output: Urine 200 500 Urine, Voided 200 500 Other: # Voids Urine, Voided 0 # Bowel Movements 0 - Medications Active Medications: Active Medications Generic Name Dose Route Start Last Admin Trade Name Freq PRN Reason Stop Dose Admin Albuterol/Ipratropium 3 ml 09/13/17 14:00 09/15/17 14:23 Duoneb 3 Mg/0.5 Mg (3 Ml) Ud INH 3 ml RQ6 ROMMEL Administration Alprazolam 0.25 mg 09/14/17 10:23 09/15/17 03:11 Xanax PO 09/21/17 10:24 0.25 mg BID PRN Administration Anxiety Aspirin 81 mg 09/13/17 10:00 09/15/17 09:06 Aspirin Chewable PO 81 mg DAILY ROMMEL Administration Clopidogrel Bisulfate 75 mg 09/13/17 10:00 09/15/17 09:06 Plavix PO 75 mg DAILY ROMMEL Administration Heparin Sodium/Sodium Chloride 25,000 units in 250 mls @ 6.237 mls/hr 13:14 09/15/17 08:01 Heparin 81148 Units/250ml 1/2 Normal Saline IV 15 units/kg/hr .Q24H PRN 8.505 mls/hr PROTOCOL Titration Protocol 11 UNITS/KG/HR Sodium Chloride 1,000 mls @ 50 mls/hr 09/14/17 16:15 09/14/17 17:52 Sodium Chloride 0.9% IV 50 mls/hr .Q20H ROMMEL Administration Insulin Human Regular 0 unit 09/12/17 22:00 09/15/17 12:01 Novolin R SC Not Given ACHS ROMMEL Protocol Losartan Potassium 25 mg 09/13/17 10:00 09/13/17 10:05 Cozaar PO Not Given DAILY ROMMEL Nicotine 1 patch 09/13/17 10:00 09/15/17 09:06 Nicoderm Cq TD 1 patch DAILY ROMMEL Administration Rosuvastatin Calcium 20 mg 09/12/17 22:00 09/14/17 22:12 Crestor PO 20 mg HS ROMMEL Administration Sitagliptin Phosphate 100 mg 09/13/17 10:00 09/15/17 09:06 Januvia PO 100 mg DAILY ROMMEL Administration - Patient Studies Lab Studies: Microbiology Studies 09/12/17 21:18 MRSA Culture (Admit) - Final Nose MRSA NOT DETECTED Lab Studies 09/15/17 09/15/17 09/15/17 Range/Units 14:21 11:48 07:09 WBC (4.8-10.8) K/uL RBC (3.80-5.20) Mil/uL Hgb (11.0-16.0) g/dL Hct (34.0-47.0) % MCV (81.0-99.0) fL MCH (27.0-31.0) pg MCHC (33.0-37.0) g/dL RDW (11.5-14.5) % Plt Count (130-400) K/uL MPV (7.2-11.7) fL Neut % (Auto) (50.0-75.0) % Lymph % (Auto) (20.0-40.0) % [place] % (Auto) (0.0-10.0) % Eos % (Auto) (0.0-4.0) % Baso % (Auto) (0.0-2.0) % Neut # (Auto) (1.8-7.0) K/uL Lymph # (Auto) (1.0-4.3) K/uL [place] # (Auto) (0.0-0.8) K/uL Eos # (Auto) (0.0-0.7) K/uL Baso # (Auto) (0.0-0.2) K/uL APTT 53 H D (21-34) SECONDS Sodium (132-148) mmol/L Potassium (3.6-5.2) mmol/L Chloride (98-107) mmol/L Carbon Dioxide (22-30) mmol/L Anion Gap (10-20) BUN (7-17) mg/dL Creatinine (0.7-1.2) mg/dL Est GFR ( Amer) Est GFR (Non-Af Amer) POC Glucose (mg/dL) 148 H 124 H (65-110) mg/dL Random Glucose (65-105) mg/dL Calcium (8.6-10.4) mg/dl Phosphorus (2.5-4.5) mg/dL Magnesium (1.6-2.3) mg/dL Total Bilirubin (0.2-1.3) mg/dL AST (14-36) U/L ALT (9-52) U/L Alkaline Phosphatase (38-126) U/L Total Creatine Kinase (30-135) U/L CK-MB (Mass) (0.0-3.38) ng/mL Troponin I (0.00-0.120) ng/mL Total Protein (6.3-8.3) g/dL Albumin (3.5-5.0) g/dL Globulin (2.2-3.9) gm/dL Albumin/Globulin Ratio (1.0-2.1) 09/15/17 09/15/17 09/15/17 Range/Units 06:18 06:18 06:17 WBC 14.1 H (4.8-10.8) K/uL RBC 4.21 (3.80-5.20) Mil/uL Hgb 12.0 (11.0-16.0) g/dL Hct 36.9 (34.0-47.0) % MCV 87.8 (81.0-99.0) fL MCH 28.4 (27.0-31.0) pg MCHC 32.4 L (33.0-37.0) g/dL RDW 14.8 H (11.5-14.5) % Plt Count 344 (130-400) K/uL MPV 9.4 (7.2-11.7) fL Neut % (Auto) 78.7 H (50.0-75.0) % Lymph % (Auto) 12.9 L (20.0-40.0) % [place] % (Auto) 8.0 (0.0-10.0) % Eos % (Auto) 0.2 (0.0-4.0) % Baso % (Auto) 0.2 (0.0-2.0) % Neut # (Auto) 11.1 H (1.8-7.0) K/uL Lymph # (Auto) 1.8 (1.0-4.3) K/uL [place] # (Auto) 1.1 H (0.0-0.8) K/uL Eos # (Auto) 0.0 (0.0-0.7) K/uL Baso # (Auto) 0.0 (0.0-0.2) K/uL APTT 19 L D (21-34) SECONDS Sodium 128 L (132-148) mmol/L Potassium 4.1 (3.6-5.2) mmol/L Chloride 99 (98-107) mmol/L Carbon Dioxide 21 L (22-30) mmol/L Anion Gap 13 (10-20) BUN 20 H (7-17) mg/dL Creatinine 0.7 (0.7-1.2) mg/dL Est GFR ( Amer) > 60 Est GFR (Non-Af Amer) > 60 POC Glucose (mg/dL) (65-110) mg/dL Random Glucose 99 (65-105) mg/dL Calcium 8.1 L (8.6-10.4) mg/dl Phosphorus 3.0 (2.5-4.5) mg/dL Magnesium 2.0 (1.6-2.3) mg/dL Total Bilirubin 0.4 (0.2-1.3) mg/dL AST 83 H D (14-36) U/L ALT 38 (9-52) U/L Alkaline Phosphatase 102 (38-126) U/L Total Creatine Kinase 185 H (30-135) U/L CK-MB (Mass) 16.0 H (0.0-3.38) ng/mL Troponin I 43.5000 H* (0.00-0.120) ng/mL Total Protein 6.2 L (6.3-8.3) g/dL Albumin 3.0 L (3.5-5.0) g/dL Globulin 3.2 (2.2-3.9) gm/dL Albumin/Globulin Ratio 0.9 L (1.0-2.1) 09/14/17 09/14/17 Range/Units 21:04 16:27 WBC (4.8-10.8) K/uL RBC (3.80-5.20) Mil/uL Hgb (11.0-16.0) g/dL Hct (34.0-47.0) % MCV (81.0-99.0) fL MCH (27.0-31.0) pg MCHC (33.0-37.0) g/dL RDW (11.5-14.5) % Plt Count (130-400) K/uL MPV (7.2-11.7) fL Neut % (Auto) (50.0-75.0) % Lymph % (Auto) (20.0-40.0) % [place] % (Auto) (0.0-10.0) % Eos % (Auto) (0.0-4.0) % Baso % (Auto) (0.0-2.0) % Neut # (Auto) (1.8-7.0) K/uL Lymph # (Auto) (1.0-4.3) K/uL [place] # (Auto) (0.0-0.8) K/uL Eos # (Auto) (0.0-0.7) K/uL Baso # (Auto) (0.0-0.2) K/uL APTT (21-34) SECONDS Sodium (132-148) mmol/L Potassium (3.6-5.2) mmol/L Chloride (98-107) mmol/L Carbon Dioxide (22-30) mmol/L Anion Gap (10-20) BUN (7-17) mg/dL Creatinine (0.7-1.2) mg/dL Est GFR ( Amer) Est GFR (Non-Af Amer) POC Glucose (mg/dL) 193 H 162 H (65-110) mg/dL Random Glucose (65-105) mg/dL Calcium (8.6-10.4) mg/dl Phosphorus (2.5-4.5) mg/dL Magnesium (1.6-2.3) mg/dL Total Bilirubin (0.2-1.3) mg/dL AST (14-36) U/L ALT (9-52) U/L Alkaline Phosphatase (38-126) U/L Total Creatine Kinase (30-135) U/L CK-MB (Mass) (0.0-3.38) ng/mL Troponin I (0.00-0.120) ng/mL Total Protein (6.3-8.3) g/dL Albumin (3.5-5.0) g/dL Globulin (2.2-3.9) gm/dL Albumin/Globulin Ratio (1.0-2.1) Laboratory Results - last 24 hr 09/14/17 09/14/17 09/15/17 16:27 21:04 06:17 WBC RBC Hgb Hct MCV MCH MCHC RDW Plt Count MPV Neut % (Auto) Lymph % (Auto) [place] % (Auto) Eos % (Auto) Baso % (Auto) Neut # (Auto) Lymph # (Auto) [place] # (Auto) Eos # (Auto) Baso # (Auto) APTT Sodium 128 L Potassium 4.1 Chloride 99 Carbon Dioxide 21 L Anion Gap 13 BUN 20 H Creatinine 0.7 Est GFR ( Amer) > 60 Est GFR (Non-Af Amer) > 60 POC Glucose (mg/dL) 162 H 193 H Random Glucose 99 Calcium 8.1 L Phosphorus 3.0 Magnesium 2.0 Total Bilirubin 0.4 AST 83 H D ALT 38 Alkaline Phosphatase 102 Total Creatine Kinase 185 H CK-MB (Mass) 16.0 H Troponin I 43.5000 H* Total Protein 6.2 L Albumin 3.0 L Globulin 3.2 Albumin/Globulin Ratio 0.9 L 09/15/17 09/15/17 09/15/17 06:18 06:18 07:09 WBC 14.1 H RBC 4.21 Hgb 12.0 Hct 36.9 MCV 87.8 MCH 28.4 MCHC 32.4 L RDW 14.8 H Plt Count 344 MPV 9.4 Neut % (Auto) 78.7 H Lymph % (Auto) 12.9 L [place] % (Auto) 8.0 Eos % (Auto) 0.2 Baso % (Auto) 0.2 Neut # (Auto) 11.1 H Lymph # (Auto) 1.8 [place] # (Auto) 1.1 H Eos # (Auto) 0.0 Baso # (Auto) 0.0 APTT 19 L D Sodium Potassium Chloride Carbon Dioxide Anion Gap BUN Creatinine Est GFR ( Amer) Est GFR (Non-Af Amer) POC Glucose (mg/dL) 124 H Random Glucose Calcium Phosphorus Magnesium Total Bilirubin AST ALT Alkaline Phosphatase Total Creatine Kinase CK-MB (Mass) Troponin I Total Protein Albumin Globulin Albumin/Globulin Ratio 09/15/17 09/15/17 11:48 14:21 WBC RBC Hgb Hct MCV MCH MCHC RDW Plt Count MPV Neut % (Auto) Lymph % (Auto) [place] % (Auto) Eos % (Auto) Baso % (Auto) Neut # (Auto) Lymph # (Auto) [place] # (Auto) Eos # (Auto) Baso # (Auto) APTT 53 H D Sodium Potassium Chloride Carbon Dioxide Anion Gap BUN Creatinine Est GFR ( Amer) Est GFR (Non-Af Amer) POC Glucose (mg/dL) 148 H Random Glucose Calcium Phosphorus Magnesium Total Bilirubin AST ALT Alkaline Phosphatase Total Creatine Kinase CK-MB (Mass) Troponin I Total Protein Albumin Globulin Albumin/Globulin Ratio EKG/Cardiology Studies: Cardiology / EKG Studies 09/15/17 07:00 ELECTROCARDIOGRAM DAILY Comment: Mode Of Transportation: Reason For Exam: acs Critical Care Progress Note - Nutrition Nutrition: Nutrition Category Date Time Status Consistent Carbohydrate [DIET] Diets 09/15/17 Breakfast Active Attending/Attestation - Attestation I have personally seen and examined this patient.: Yes I have fully participated in the care of the patient.: Yes I have reviewed all pertinent clinical information: Yes Notes (Text): 09/15/17 15:36 Today: , September 15, 2017 The Patient was seen and examined at the bedside, Medical records reviewed, and management issues were discussed and formulated with the house staff. I have reviewed all the relevant clinical, laboratory, hemodynamic, radiographic data and medications Events reviewed Pain issues, skin care, head of the bed elevation, glycemic control were addressed. Agree with above resident's assessment and treatment plans of care as transcribed in Dr. Rehman note.
[2017-09-15] MEDS: Sodium Chloride 0.9% 1,000 ML IV SCH (12:15)
--- NOTE | 2017-09-15 21:35 | CP.PCM.PN ---
Subjective - Date & Time of Evaluation Date of Evaluation: 09/15/17 Time of Evaluation: 20:20 - Subjective Subjective: Patient was seen and examined at bedside. Denies chest pain and dyspnea Physical examination - Constitutional Appears: Non-toxic, No Acute Distress - Head Exam Head Exam: ATRAUMATIC, NORMAL INSPECTION - Eye Exam Eye Exam: EOMI - ENT Exam ENT Exam: Mucous Membranes Moist - Respiratory Exam Respiratory Exam: Clear to Ausculation Bilateral - Cardiovascular Exam Cardiovascular Exam: REGULAR RHYTHM, +S1, +S2 - GI/Abdominal Exam GI & Abdominal Exam: Soft. absent: Distended, Firm, Guarding, Tenderness - Extremities Exam Extremities Exam: Normal Inspection. absent: Calf Tenderness - Back Exam Back Exam: NORMAL INSPECTION - Neurological Exam Neurological Exam: Alert, Awake, Oriented x3 - Psychiatric Exam Psychiatric exam: Normal Affect, Normal Mood - Skin Objective - Vital Signs/Intake and Output Vital Signs (last 24 hours): Temp Pulse Resp BP Pulse Ox 98.4 F 80 28 H 90/45 L 94 L 09/15/17 20:00 09/15/17 21:02 09/15/17 21:02 09/15/17 21:02 09/15/17 21:02 Intake and Output: 09/15/17 09/16/17 18:59 06:59 Intake Total 1403.6 208.5 Output Total 900 Balance 503.6 208.5 - Medications Medications: Current Medications Albuterol/Ipratropium (Duoneb 3 Mg/0.5 Mg (3 Ml) Ud) 3 ml INH RQ6 [facility] Last Admin: 09/15/17 20:08 Dose: Not Given Alprazolam (Xanax) 0.25 mg PO BID PRN PRN Reason: Anxiety Stop: 09/21/17 10:24 Last Admin: 09/15/17 18:36 Dose: 0.25 mg Aspirin (Aspirin Chewable) 81 mg PO DAILY [facility] Last Admin: 09/15/17 09:06 Dose: 81 mg Clopidogrel Bisulfate (Plavix) 75 mg PO DAILY [facility] Last Admin: 09/15/17 09:06 Dose: 75 mg Enoxaparin Sodium (Lovenox) 40 mg SC DAILY [facility] Sodium Chloride (Sodium Chloride 0.9%) 1,000 mls @ 50 mls/hr IV .Q20H [facility] Last Admin: 09/15/17 12:15 Dose: Not Given Insulin Human Regular (Novolin R) 0 unit SC ACHS ROMMEL PRN Reason: Protocol Last Admin: 09/15/17 16:06 Dose: Not Given Losartan Potassium (Cozaar) 25 mg PO DAILY [facility] Last Admin: 09/13/17 10:05 Dose: Not Given Nicotine (Nicoderm Cq) 1 patch TD DAILY [facility] Last Admin: 09/15/17 09:06 Dose: 1 patch Rosuvastatin Calcium (Crestor) 20 mg PO HS [facility] Last Admin: 09/14/17 22:12 Dose: 20 mg Sitagliptin Phosphate (Januvia) 100 mg PO DAILY [facility] Last Admin: 09/15/17 09:06 Dose: 100 mg - Labs Labs: 09/15/17 06:18 09/15/17 06:17 PT 10.9 SECONDS (9.7-12.2) 09/12/17 19:45 INR 1.0 09/12/17 19:45 APTT 53 SECONDS (21-34) H D 09/15/17 14:21 Assessment and Plan - Assessment and Plan (Free Text) Assessment: 1. Severe Ischemic CMP (Entire anterior, septal and apical segments are non viable) High risk for V Fib arrest For EPS +/-AICD on Tuesday at [place] 2. CAD: Post [place] management. ASA, Plavix, Statins (B blockers and JEANNE I if tolerated. 3. Hypotension with low Na and Chloride: Gentle IV hydration 4. OOB to ambulate. DVT anf GI prophylaxis
--- NOTE | 2017-09-15 22:59 | CP.PCM.PN ---
Subjective - Date & Time of Evaluation Date of Evaluation: 09/15/17 Time of Evaluation: 18:40 - Subjective Subjective: Pt is for myoveiw studies today, She has a viable myocardium , will be going for angiogram and possible angioplasty Objective - Vital Signs/Intake and Output Vital Signs (last 24 hours): Temp Pulse Resp BP Pulse Ox 98.4 F 85 18 101/50 L 97 09/15/17 20:00 09/15/17 22:02 09/15/17 22:02 09/15/17 22:02 09/15/17 22:02 Intake and Output: 09/15/17 09/16/17 18:59 06:59 Intake Total 1403.6 318.5 Output Total 900 Balance 503.6 318.5 - Medications Medications: Current Medications Albuterol/Ipratropium (Duoneb 3 Mg/0.5 Mg (3 Ml) Ud) 3 ml INH RQ6 [facility] Last Admin: 09/15/17 20:08 Dose: Not Given Alprazolam (Xanax) 0.25 mg PO BID PRN PRN Reason: Anxiety Stop: 09/21/17 10:24 Last Admin: 09/15/17 18:36 Dose: 0.25 mg Aspirin (Aspirin Chewable) 81 mg PO DAILY [facility] Last Admin: 09/15/17 09:06 Dose: 81 mg Clopidogrel Bisulfate (Plavix) 75 mg PO DAILY [facility] Last Admin: 09/15/17 09:06 Dose: 75 mg Enoxaparin Sodium (Lovenox) 40 mg SC DAILY [facility] Sodium Chloride (Sodium Chloride 0.9%) 1,000 mls @ 50 mls/hr IV .Q20H [facility] Last Admin: 09/15/17 12:15 Dose: Not Given Insulin Human Regular (Novolin R) 0 unit SC ACHS [facility] PRN Reason: Protocol Last Admin: 09/15/17 22:00 Dose: Not Given Losartan Potassium (Cozaar) 25 mg PO DAILY [facility] Last Admin: 09/13/17 10:05 Dose: Not Given Nicotine (Nicoderm Cq) 1 patch TD DAILY [facility] Last Admin: 09/15/17 09:06 Dose: 1 patch Rosuvastatin Calcium (Crestor) 20 mg PO HS [facility] Last Admin: 09/15/17 22:35 Dose: 20 mg Sitagliptin Phosphate (Januvia) 100 mg PO DAILY [facility] Last Admin: 09/15/17 09:06 Dose: 100 mg - Labs Labs: 09/15/17 06:18 09/15/17 06:17 PT 10.9 SECONDS (9.7-12.2) 09/12/17 19:45 INR 1.0 09/12/17 19:45 APTT 53 SECONDS (21-34) H D 09/15/17 14:21 - Constitutional Appears: No Acute Distress - Head Exam Head Exam: ATRAUMATIC, NORMAL INSPECTION, NORMOCEPHALIC - Eye Exam Eye Exam: EOMI, Normal appearance, PERRL Pupil Exam: NORMAL ACCOMODATION, PERRL - Respiratory Exam Respiratory Exam: Clear to Ausculation Bilateral, NORMAL BREATHING PATTERN - Cardiovascular Exam Cardiovascular Exam: REGULAR RHYTHM, +S1, +S2, Murmur - GI/Abdominal Exam GI & Abdominal Exam: Soft, Normal Bowel Sounds. absent: Tenderness Assessment and Plan (1) STEMI (ST elevation myocardial infarction) Status: Acute (2) Carotid atherosclerosis Status: Acute (3) Dementia Status: Acute (4) Diabetes mellitus type 2 in nonobese Status: Chronic (5) Hypertension Status: Chronic
[2017-09-16] MEDS: Albuterol-Ipratrop 3 mg / 0.5 (3 ml) UD INH SCH ×4 (02:20→19:40)
[2017-09-16 06:42] LABS: BASO % 0.4 % (0.0-2.0); EOS # 0.1 K/uL (0.0-0.7); EOS % 1.6 % (0.0-4.0); HEMOGLOBIN 10.5 g/dL (11.0-16.0); LYMPH # 1.6 K/uL (1.0-4.3); LYMPH % 18.2 % (20.0-40.0); MEAN CELL VOLUME 87.3 fL (81.0-99.0); MEAN CORPUSCULAR HEMOGLOBIN 29.2 pg (27.0-31.0); MEAN CORPUSCULAR HGB CONC 33.5 g/dL (33.0-37.0); MEAN PLATELET VOLUME 9.4 fL (7.2-11.7); MONO # 0.9 K/uL (0.0-0.8); MONO % 10.3 % (0.0-10.0); NEUT # 5.9 K/uL (1.8-7.0); NEUT % 69.5 % (50.0-75.0); RBC 3.6 Mil/uL (3.80-5.20); RED CELL DISTRIBUTION WIDTH 14.3 % (11.5-14.5); WHITE BLOOD COUNT 8.5 K/uL (4.8-10.8)
[2017-09-16 07:00] LABS: ALB/GLOB RATIO 0.9 (1.0-2.1); ALBUMIN 2.6 g/dL (3.5-5.0); ALT/SGPT 38 U/L (9-52); AST/SGOT 49 U/L (14-36); BLOOD UREA NITROGEN 17 mg/dL (7-17); GFR AFRICAN-AMERICAN > 60; GFR NON-AFRICAN AMERICAN > 60
[2017-09-16] MEDS: (Novolin R) Insulin Human Regular 100 units/ml vial SC SCH ×4 (07:59→21:46)
--- NOTE | 2017-09-16 08:24 | CP.PCM.PN ---
Subjective - Date & Time of Evaluation Date of Evaluation: 09/16/17 Time of Evaluation: 18:40 - Subjective Subjective: Pt seen and evaluated, pt is improving, no fever, chills, rigors , no shortness of breath. Objective - Vital Signs/Intake and Output Vital Signs (last 24 hours): Temp Pulse Resp BP Pulse Ox 98.4 F 75 22 95/53 L 97 09/16/17 08:00 09/16/17 08:02 09/16/17 08:02 09/16/17 08:02 09/16/17 08:02 Intake and Output: 09/16/17 09/16/17 06:59 18:59 Intake Total 718.5 100 Output Total 0 Balance 718.5 100 - Medications Medications: Current Medications Albuterol/Ipratropium (Duoneb 3 Mg/0.5 Mg (3 Ml) Ud) 3 ml INH RQ6 [facility] Last Admin: 09/16/17 08:02 Dose: Not Given Alprazolam (Xanax) 0.25 mg PO BID PRN PRN Reason: Anxiety Stop: 09/21/17 10:24 Last Admin: 09/15/17 18:36 Dose: 0.25 mg Aspirin (Aspirin Chewable) 81 mg PO DAILY [facility] Last Admin: 09/15/17 09:06 Dose: 81 mg Clopidogrel Bisulfate (Plavix) 75 mg PO DAILY [facility] Last Admin: 09/15/17 09:06 Dose: 75 mg Enoxaparin Sodium (Lovenox) 40 mg SC DAILY [facility] Sodium Chloride (Sodium Chloride 0.9%) 1,000 mls @ 50 mls/hr IV .Q20H [facility] Last Admin: 09/15/17 12:15 Dose: Not Given Insulin Human Regular (Novolin R) 0 unit SC ACHS [facility] PRN Reason: Protocol Last Admin: 09/16/17 07:59 Dose: Not Given Losartan Potassium (Cozaar) 25 mg PO DAILY [facility] Last Admin: 09/13/17 10:05 Dose: Not Given Nicotine (Nicoderm Cq) 1 patch TD DAILY [facility] Last Admin: 09/15/17 09:06 Dose: 1 patch Rosuvastatin Calcium (Crestor) 20 mg PO HS [facility] Last Admin: 09/15/17 22:35 Dose: 20 mg Sitagliptin Phosphate (Januvia) 100 mg PO DAILY [facility] Last Admin: 09/15/17 09:06 Dose: 100 mg - Labs Labs: 09/16/17 06:32 09/16/17 06:30 PT 10.9 SECONDS (9.7-12.2) 09/12/17 19:45 INR 1.0 09/12/17 19:45 APTT 53 SECONDS (21-34) H D 09/15/17 14:21 - Constitutional Appears: No Acute Distress - Head Exam Head Exam: ATRAUMATIC, NORMAL INSPECTION, NORMOCEPHALIC - Eye Exam Eye Exam: EOMI, Normal appearance, PERRL Pupil Exam: NORMAL ACCOMODATION, PERRL - Respiratory Exam Respiratory Exam: Decreased Breath Sounds, Rales - Cardiovascular Exam Cardiovascular Exam: +S1, +S2 - GI/Abdominal Exam GI & Abdominal Exam: Soft, Normal Bowel Sounds. absent: Tenderness - Rectal Exam Rectal Exam: Deferred Assessment and Plan (1) STEMI (ST elevation myocardial infarction) Status: Resolved (2) Carotid atherosclerosis Status: Acute (3) Dementia Status: Acute (4) Diabetes mellitus type 2 in nonobese Status: Chronic (5) Hypertension Status: Chronic
[2017-09-16] MEDS: Enoxaparin 40 mg Syringe SC SCH (09:44)
[2017-09-16] MEDS: Sodium Chloride 0.9% 1,000 ML IV SCH (09:46)
--- NOTE | 2017-09-16 13:08 | CARD ---
APPROVED REPORT EKG Measurement Heart [id number] [place] [id number] [id number] <Conclusion> Normal sinus rhythm Left axis deviation Low voltage QRS Anteroseptal infarct, possibly acute Lateral injury pattern ACUTE [place] / STEMI Abnormal ECG
--- NOTE | 2017-09-16 23:08 | CARD ---
APPROVED REPORT EKG Measurement Heart [id number] <Conclusion> Normal sinus rhythm Left anterior fascicular block Anteroseptal infarct, possibly acute Lateral injury pattern ACUTE [place] / STEMI Abnormal ECG
[2017-09-17] MEDS: Sodium Chloride 0.9% 1,000 ML IV SCH
[2017-09-17] MEDS: Albuterol-Ipratrop 3 mg / 0.5 (3 ml) UD INH SCH ×4 (01:27→20:11)
[2017-09-17] MEDS ORDERED: guaiFENesin 100 mg/5 ml Syrup UD PO STA (03:19)
[2017-09-17] MEDS: (Novolin R) Insulin Human Regular 100 units/ml vial SC SCH ×4 (08:15→21:46)
[2017-09-17 08:32] LABS: BASO % 0.5 % (0.0-2.0); EOS # 0.1 K/uL (0.0-0.7); EOS % 1.9 % (0.0-4.0); HEMOGLOBIN 10.1 g/dL (11.0-16.0); LYMPH # 1.8 K/uL (1.0-4.3); MEAN CELL VOLUME 86.8 fL (81.0-99.0); MEAN CORPUSCULAR HEMOGLOBIN 29.5 pg (27.0-31.0); MEAN PLATELET VOLUME 9.2 fL (7.2-11.7); MONO # 0.8 K/uL (0.0-0.8); MONO % 10.6 % (0.0-10.0); RBC 3.43 Mil/uL (3.80-5.20); RED CELL DISTRIBUTION WIDTH 14.4 % (11.5-14.5); WHITE BLOOD COUNT 7.8 K/uL (4.8-10.8)
[2017-09-17 08:46] LABS: BLOOD UREA NITROGEN 16 mg/dL (7-17); CALCIUM 8.1 mg/dl (8.6-10.4); GFR AFRICAN-AMERICAN > 60; GFR NON-AFRICAN AMERICAN > 60
[2017-09-17] MEDS: Enoxaparin 40 mg Syringe SC SCH (10:04)
[2017-09-17] MEDS ORDERED: guaiFENesin 100 mg/5 ml Syrup UD PO PRN (15:22)
--- NOTE | 2017-09-17 17:06 | CARD ---
APPROVED REPORT submaximum (85%): 0 bpm Electronically Approved: 09/16/2017 08:51:59 EXAM: Myocardial Viability IMMEDIATE / 4HOURS DELAY / 24HOURS DELAY Imaging Protocol The imaging protocol used to acquire images was Viability only Rest Spect myocardial perfusion imaging was performed in supine position 15 minutes following the injection of 4 mCi of Thallium. Delay rest spect was performed 240 and 1440 minutes after intravenous Thallium injection. Images were reconstructed using backfilter projection method in short horizontal and verticle long axis. Spect slices were generated. Other Information Quality:Good Conclusion 1. Thallium viability study: Viability study performed with Thallium injections at baseline, 4 hours and 24 hours 2. Dilated LV. No Thallium uptake in aterior, septal and apical segments of Myocardium suggestive of no viability in LAD territary
--- NOTE | 2017-09-17 21:45 | CP.PCM.PN ---
Subjective - Date & Time of Evaluation Date of Evaluation: 09/17/17 Time of Evaluation: 09:00 - Subjective Subjective: Pt seen and examined at bedside , pt denies any recurrent chest pain, pt is for EP studies on tuesday at [facility] Objective - Vital Signs/Intake and Output Vital Signs (last 24 hours): Temp Pulse Resp BP Pulse Ox 97.8 F 76 18 101/64 96 09/17/17 16:00 09/17/17 16:00 09/17/17 16:00 09/17/17 16:00 09/17/17 16:00 - Medications Medications: Current Medications Albuterol/Ipratropium (Duoneb 3 Mg/0.5 Mg (3 Ml) Ud) 3 ml INH RQ6 [facility] Last Admin: 09/17/17 20:11 Dose: 3 ml Alprazolam (Xanax) 0.25 mg PO BID PRN PRN Reason: Anxiety Stop: 09/21/17 10:24 Last Admin: 09/17/17 20:22 Dose: 0.25 mg Aspirin (Aspirin Chewable) 81 mg PO DAILY [facility] Last Admin: 09/17/17 10:04 Dose: 81 mg Clopidogrel Bisulfate (Plavix) 75 mg PO DAILY [facility] Last Admin: 09/17/17 10:04 Dose: 75 mg Enoxaparin Sodium (Lovenox) 40 mg SC DAILY [facility] Last Admin: 09/17/17 10:04 Dose: 40 mg Guaifenesin (Robitussin) 100 mg PO Q4H PRN PRN Reason: Cough Insulin Human Regular (Novolin R) 0 unit SC ACHS [facility] PRN Reason: Protocol Last Admin: 09/17/17 17:15 Dose: Not Given Losartan Potassium (Cozaar) 25 mg PO DAILY [facility] Last Admin: 09/13/17 10:05 Dose: Not Given Nicotine (Nicoderm Cq) 1 patch TD DAILY [facility] Last Admin: 09/17/17 10:05 Dose: 1 patch Rosuvastatin Calcium (Crestor) 20 mg PO HS [facility] Last Admin: 09/17/17 21:05 Dose: 20 mg Sitagliptin Phosphate (Januvia) 100 mg PO DAILY [facility] Last Admin: 09/17/17 10:04 Dose: 100 mg - Labs Labs: 09/17/17 08:16 09/17/17 08:16 PT 10.9 SECONDS (9.7-12.2) 09/12/17 19:45 INR 1.0 09/12/17 19:45 APTT 53 SECONDS (21-34) H D 09/15/17 14:21 - Constitutional Appears: Well, No Acute Distress - Head Exam Head Exam: ATRAUMATIC, NORMAL INSPECTION, NORMOCEPHALIC - Eye Exam Eye Exam: EOMI, Normal appearance, PERRL Pupil Exam: NORMAL ACCOMODATION, PERRL - Respiratory Exam Respiratory Exam: Decreased Breath Sounds, Rales - Cardiovascular Exam Cardiovascular Exam: REGULAR RHYTHM, +S1, +S2. absent: Murmur - GI/Abdominal Exam GI & Abdominal Exam: Soft, Normal Bowel Sounds. absent: Tenderness Assessment and Plan (1) STEMI (ST elevation myocardial infarction) Assessment & Plan: improving Status: Acute (2) Carotid atherosclerosis Status: Acute (3) Dementia Status: Acute (4) Diabetes mellitus type 2 in nonobese Status: Chronic (5) Hypertension Status: Chronic
--- NOTE | 2017-09-18 01:01 | CP.PCM.PN ---
Subjective - Date & Time of Evaluation Date of Evaluation: 09/16/17 Time of Evaluation: 13:00 - Subjective Subjective: Patient for EPS +/-ACID at [place] Denies chest pain and dyspnea Physical examination - Constitutional Appears: Non-toxic, No Acute Distress - Head Exam Head Exam: ATRAUMATIC, NORMAL INSPECTION - Eye Exam Eye Exam: EOMI - ENT Exam ENT Exam: Mucous Membranes Moist - Respiratory Exam Respiratory Exam: Clear to Ausculation Bilateral - Cardiovascular Exam Cardiovascular Exam: REGULAR RHYTHM, +S1, +S2 - GI/Abdominal Exam GI & Abdominal Exam: Soft. absent: Distended, Firm, Guarding, Tenderness - Extremities Exam Extremities Exam: Normal Inspection. absent: Calf Tenderness - Back Exam Back Exam: NORMAL INSPECTION - Neurological Exam Neurological Exam: Alert, Awake, Oriented x3 - Psychiatric Exam Psychiatric exam: Normal Affect, Normal Mood Objective - Vital Signs/Intake and Output Vital Signs (last 24 hours): Temp Pulse Resp BP Pulse Ox 97.6 F 78 20 101/65 95 09/17/17 23:15 09/17/17 23:15 09/17/17 23:15 09/17/17 23:15 09/17/17 23:15 Intake and Output: 09/17/17 09/18/17 18:59 06:59 Intake Total 640 Balance 640 - Medications Medications: Current Medications Albuterol/Ipratropium (Duoneb 3 Mg/0.5 Mg (3 Ml) Ud) 3 ml INH RQ6 [facility] Last Admin: 09/17/17 20:11 Dose: 3 ml Alprazolam (Xanax) 0.25 mg PO BID PRN PRN Reason: Anxiety Stop: 09/21/17 10:24 Last Admin: 09/17/17 20:22 Dose: 0.25 mg Aspirin (Aspirin Chewable) 81 mg PO DAILY [facility] Last Admin: 09/17/17 10:04 Dose: 81 mg Clopidogrel Bisulfate (Plavix) 75 mg PO DAILY [facility] Last Admin: 09/17/17 10:04 Dose: 75 mg Enoxaparin Sodium (Lovenox) 40 mg SC DAILY [facility] Last Admin: 09/17/17 10:04 Dose: 40 mg Guaifenesin (Robitussin) 100 mg PO Q4H PRN PRN Reason: Cough Insulin Human Regular (Novolin R) [address] [facility] PRN Reason: Protocol Last Admin: 09/17/17 21:46 Dose: Not Given Losartan Potassium (Cozaar) 25 mg PO DAILY [facility] Last Admin: 09/13/17 10:05 Dose: Not Given Nicotine (Nicoderm Cq) 1 patch TD DAILY [facility] Last Admin: 09/17/17 10:05 Dose: 1 patch Rosuvastatin Calcium (Crestor) 20 mg PO HS [facility] Last Admin: 09/17/17 21:05 Dose: 20 mg Sitagliptin Phosphate (Januvia) 100 mg PO DAILY [facility] Last Admin: 09/17/17 10:04 Dose: 100 mg - Labs Labs: 09/17/17 08:16 09/17/17 08:16 PT 10.9 SECONDS (9.7-12.2) 09/12/17 19:45 INR 1.0 09/12/17 19:45 APTT 53 SECONDS (21-34) H D 09/15/17 14:21 Assessment and Plan - Assessment and Plan (Free Text) Assessment: 1. 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 CAD: Post [place] management. ASA, Plavix, Statins (B blockers and JEANNE I if tolerated. 3. Hypotension with low Na and Chloride: Gentle IV hydration 4. OOB to ambulate. DVT anf GI prophylaxis
--- NOTE | 2017-09-18 01:02 | CP.PCM.PN ---
Subjective - Date & Time of Evaluation Date of Evaluation: 09/17/17 Time of Evaluation: 18:15 - Subjective Subjective: Patient for EPS +/-ACID at [place] Denies chest pain and dyspnea Physical examination - Constitutional Appears: Non-toxic, No Acute Distress - Head Exam Head Exam: ATRAUMATIC, NORMAL INSPECTION - Eye Exam Eye Exam: EOMI - ENT Exam ENT Exam: Mucous Membranes Moist - Respiratory Exam Respiratory Exam: Clear to Ausculation Bilateral - Cardiovascular Exam Cardiovascular Exam: REGULAR RHYTHM, +S1, +S2 - GI/Abdominal Exam GI & Abdominal Exam: Soft. absent: Distended, Firm, Guarding, Tenderness - Extremities Exam Extremities Exam: Normal Inspection. absent: Calf Tenderness - Back Exam Back Exam: NORMAL INSPECTION - Neurological Exam Neurological Exam: Alert, Awake, Oriented x3 - Psychiatric Exam Psychiatric exam: Normal Affect, Normal Mood Objective - Vital Signs/Intake and Output Vital Signs (last 24 hours): Temp Pulse Resp BP Pulse Ox 97.6 F 78 20 101/65 95 09/17/17 23:15 09/17/17 23:15 09/17/17 23:15 09/17/17 23:15 09/17/17 23:15 Intake and Output: 09/17/17 09/18/17 18:59 06:59 Intake Total 640 Balance 640 - Medications Medications: Current Medications Albuterol/Ipratropium (Duoneb 3 Mg/0.5 Mg (3 Ml) Ud) 3 ml INH RQ6 [facility] Last Admin: 09/17/17 20:11 Dose: 3 ml Alprazolam (Xanax) 0.25 mg PO BID PRN PRN Reason: Anxiety Stop: 09/21/17 10:24 Last Admin: 09/17/17 20:22 Dose: 0.25 mg Aspirin (Aspirin Chewable) 81 mg PO DAILY [facility] Last Admin: 09/17/17 10:04 Dose: 81 mg Clopidogrel Bisulfate (Plavix) 75 mg PO DAILY [facility] Last Admin: 09/17/17 10:04 Dose: 75 mg Enoxaparin Sodium (Lovenox) 40 mg SC DAILY [facility] Last Admin: 09/17/17 10:04 Dose: 40 mg Guaifenesin (Robitussin) 100 mg PO Q4H PRN PRN Reason: Cough Insulin Human Regular (Novolin R) 0 unit SC [facility] PRN Reason: Protocol Last Admin: 09/17/17 21:46 Dose: Not Given Losartan Potassium (Cozaar) 25 mg PO DAILY [facility] Last Admin: 09/13/17 10:05 Dose: Not Given Nicotine (Nicoderm Cq) 1 patch TD DAILY [facility] Last Admin: 09/17/17 10:05 Dose: 1 patch Rosuvastatin Calcium (Crestor) 20 mg PO HS [facility] Last Admin: 09/17/17 21:05 Dose: 20 mg Sitagliptin Phosphate (Januvia) 100 mg PO DAILY [facility] Last Admin: 09/17/17 10:04 Dose: 100 mg - Labs Labs: 09/17/17 08:16 09/17/17 08:16 PT 10.9 SECONDS (9.7-12.2) 09/12/17 19:45 INR 1.0 09/12/17 19:45 APTT 53 SECONDS (21-34) H D 09/15/17 14:21 Assessment and Plan - Assessment and Plan (Free Text) Assessment: 1. 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 CAD: Post [place] management. ASA, Plavix, Statins (B blockers and JEANNE I if tolerated. 3. Hypotension with low Na and Chloride: Gentle IV hydration 4. OOB to ambulate. DVT anf GI prophylaxis
[2017-09-18] MEDS: Albuterol-Ipratrop 3 mg / 0.5 (3 ml) UD INH SCH ×3 (02:12→13:32)
--- NOTE | 2017-09-18 02:20 | CARDCATH ---
PROCEDURE DATE: 09/12/2017 PROCEDURES: 1. Left heart catheterization. 2. Coronary angiogram. CLINICAL INDICATIONS: 1. Elevated troponin. 2. EKG suggestive of lateral wall ST elevation AL. 3. Hypertension. 4. Diabetes. 5. Hyperlipidemia. 6. Peripheral vascular disease. REFERRING PHYSICIAN: Celso Bonilla MD PERFORMING PHYSICIAN: Kalen Robledo MD BRIEF CLINICAL HISTORY: Floresita Kemp is a 77-year-old female with history of tobacco use, hypertension, hyperlipidemia, and diabetes presented to [facility] with nausea and dyspepsia. Subsequent workup has revealed that the patient has elevated troponin of 100. Then EKG was performed which has shown Q waves in the anterior leads and ST elevations in the lateral leads. However, the patient was chest pain and dyspnea free. The patient was taken for urgent catheterization because of troponin of 100. PROCEDURE IN DETAIL: The patient was prepped and draped in the usual sterile fashion. Lidocaine 2% was given in the right groin for local anesthesia. Using micropuncture technique, 6-Polish sheath was introduced into right common femoral artery. A 6-Polish JL4 diagnostic catheter is engaged into left main coronary artery. Contrast injected and left coronary angiogram was performed. A 6-Polish JR4 diagnostic catheter crossed into left ventricle across the aortic valve. LV end diastolic pressures measured. Contrast injected and LV angiogram was performed. The catheter was pulled back into aorta. There was no gradient across the aortic valve. The JR4 catheter engaged into right coronary artery and contrast was injected and right coronary angiogram was performed. The patient tolerated the procedure well. FINDINGS: 1. Left main coronary artery is patent. 2. Proximal LAD is 100% occluded. 3. Left circumflex artery is dominant and patent. 4. Right coronary artery is nondominant and patent. 5. LV ejection fraction is approximately 20% to 25%. Anterior wall and apex is akinetic. LV end diastolic pressure is 35. There were no gradient across the aortic valve. PLAN: The patient is chest pain free with stable hemodynamics. EKG has shown completed infarct in the anterior wall. LV angiogram also did show akinetic anterior wall in apex. Intervention was called off. We will perform viability study for the patient. If the patient has a viable myocardium in the anterior and in the apex, we will consider intervening left anterior descending coronary artery. Kalen Robledo MD
[2017-09-18] MEDS: (Novolin R) Insulin Human Regular 100 units/ml vial SC SCH ×4 (08:24→22:22)
[2017-09-18] MEDS: Enoxaparin 40 mg Syringe SC SCH (11:05)
--- NOTE | 2017-09-18 21:06 | CP.PCM.PN ---
Subjective - Date & Time of Evaluation Date of Evaluation: 09/18/17 Time of Evaluation: 17:00 - Subjective Subjective: Pt seen and examined, afebrile, decreased shortness of breath, no chest pain, pt is for transfer to [facility] for EP studies Objective - Vital Signs/Intake and Output Vital Signs (last 24 hours): Temp Pulse Resp BP Pulse Ox 97.4 F L 72 20 99/58 L 95 09/18/17 08:00 09/18/17 16:00 09/18/17 08:00 09/18/17 08:00 09/17/17 23:15 - Medications Medications: Current Medications Alprazolam (Xanax) 0.25 mg PO BID PRN PRN Reason: Anxiety Stop: 09/21/17 10:24 Last Admin: 09/17/17 20:22 Dose: 0.25 mg Aspirin (Aspirin Chewable) 81 mg PO DAILY [facility] Last Admin: 09/18/17 11:05 Dose: 81 mg Clopidogrel Bisulfate (Plavix) 75 mg PO DAILY [facility] Last Admin: 09/18/17 11:04 Dose: 75 mg Enoxaparin Sodium (Lovenox) 40 mg SC DAILY [facility] Guaifenesin (Robitussin) 100 mg PO Q4H PRN PRN Reason: Cough Insulin Human Regular (Novolin R) 0 unit SC ACHS [facility] PRN Reason: Protocol Last Admin: 09/18/17 17:15 Dose: Not Given Losartan Potassium (Cozaar) 25 mg PO DAILY [facility] Last Admin: 09/13/17 10:05 Dose: Not Given Nicotine (Nicoderm Cq) 1 patch TD DAILY [facility] Last Admin: 09/18/17 11:05 Dose: 1 patch Rosuvastatin Calcium (Crestor) 20 mg PO HS [facility] Last Admin: 09/17/17 21:05 Dose: 20 mg Sitagliptin Phosphate (Januvia) 100 mg PO DAILY [facility] Last Admin: 09/18/17 11:05 Dose: 100 mg - Labs Labs: 09/17/17 08:16 09/17/17 08:16 PT 10.9 SECONDS (9.7-12.2) 09/12/17 19:45 INR 1.0 09/12/17 19:45 APTT 53 SECONDS (21-34) H D 09/15/17 14:21 - Constitutional Appears: No Acute Distress - Head Exam Head Exam: ATRAUMATIC, NORMAL INSPECTION, NORMOCEPHALIC - Eye Exam Eye Exam: EOMI, Normal appearance, PERRL Pupil Exam: NORMAL ACCOMODATION, PERRL - Respiratory Exam Respiratory Exam: Decreased Breath Sounds, Rales - Cardiovascular Exam Cardiovascular Exam: REGULAR RHYTHM, +S1, +S2. absent: Murmur - GI/Abdominal Exam GI & Abdominal Exam: Soft, Normal Bowel Sounds. absent: Tenderness Assessment and Plan (1) STEMI (ST elevation myocardial infarction) Assessment & Plan: transfer to [facility] for EP studies Status: Acute (2) Carotid atherosclerosis Status: Acute (3) Dementia Status: Acute (4) Diabetes mellitus type 2 in nonobese Status: Chronic (5) Hypertension Status: Chronic
--- NOTE | 2017-09-18 22:58 | CP.PCM.PN ---
Subjective - Date & Time of Evaluation Date of Evaluation: 09/18/17 Time of Evaluation: 17:45 - Subjective Subjective: Patient seen and evaluated denies chest pain and dyspnea For AICD on Tuesday Physical examination - Constitutional Appears: Non-toxic, No Acute Distress - Head Exam Head Exam: ATRAUMATIC, NORMAL INSPECTION - Eye Exam Eye Exam: EOMI - ENT Exam ENT Exam: Mucous Membranes Moist - Respiratory Exam Respiratory Exam: Clear to Ausculation Bilateral - Cardiovascular Exam Cardiovascular Exam: REGULAR RHYTHM, +S1, +S2 - GI/Abdominal Exam GI & Abdominal Exam: Soft. absent: Distended, Firm, Guarding, Tenderness - Extremities Exam Extremities Exam: Normal Inspection. absent: Calf Tenderness - Back Exam Back Exam: NORMAL INSPECTION - Neurological Exam Neurological Exam: Alert, Awake, Oriented x3 - Psychiatric Exam Psychiatric exam: Normal Affect, Normal Mood Objective - Vital Signs/Intake and Output Vital Signs (last 24 hours): Temp Pulse Resp BP Pulse Ox 97.4 F L 72 20 99/58 L 95 09/18/17 08:00 09/18/17 16:00 09/18/17 08:00 09/18/17 08:00 09/17/17 23:15 Intake and Output: 09/18/17 09/19/17 18:59 06:59 Intake Total 400 Balance 400 - Medications Medications: Current Medications Alprazolam (Xanax) 0.25 mg PO BID PRN PRN Reason: Anxiety Stop: 09/21/17 10:24 Last Admin: 09/18/17 21:14 Dose: 0.25 mg Aspirin (Aspirin Chewable) 81 mg PO DAILY [facility] Last Admin: 09/18/17 11:05 Dose: 81 mg Clopidogrel Bisulfate (Plavix) 75 mg PO DAILY [facility] Last Admin: 09/18/17 11:04 Dose: 75 mg Enoxaparin Sodium (Lovenox) 40 mg SC DAILY [facility] Guaifenesin (Robitussin) 100 mg PO Q4H PRN PRN Reason: Cough Insulin Human Regular (Novolin R) 0 unit SC ACHS [facility] PRN Reason: Protocol Last Admin: 09/18/17 22:22 Dose: Not Given Losartan Potassium (Cozaar) 25 mg PO DAILY [facility] Last Admin: 09/13/17 10:05 Dose: Not Given Nicotine (Nicoderm Cq) 1 patch TD DAILY [facility] Last Admin: 09/18/17 11:05 Dose: 1 patch Rosuvastatin Calcium (Crestor) 20 mg PO HS [facility] Last Admin: 09/18/17 21:14 Dose: 20 mg Sitagliptin Phosphate (Januvia) 100 mg PO DAILY [facility] Last Admin: 09/18/17 11:05 Dose: 100 mg - Labs Labs: 09/17/17 08:16 09/17/17 08:16 PT 10.9 SECONDS (9.7-12.2) 09/12/17 19:45 INR 1.0 09/12/17 19:45 APTT 53 SECONDS (21-34) H D 09/15/17 14:21 Assessment and Plan - Assessment and Plan (Free Text) Assessment: 1. 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 CAD: Post [place] management. ASA, Plavix, Statins (B blockers and JEANNE I if tolerated. 3. Hypotension with low Na and Chloride: Gentle IV hydration 4. OOB to ambulate. DVT anf GI prophylaxis
[2017-09-19] MEDS: (Novolin R) Insulin Human Regular 100 units/ml vial SC SCH ×4 (07:54→21:46)
[2017-09-19] MEDS ORDERED: Enoxaparin 60 mg Syringe SC SCH (10:00)
--- NOTE | 2017-09-19 22:33 | CP.PCM.PN ---
Subjective - Date & Time of Evaluation Date of Evaluation: 09/19/17 Time of Evaluation: 19:00 - Subjective Subjective: Pt seen & examined aT bedside Objective - Vital Signs/Intake and Output Vital Signs (last 24 hours): Temp Pulse Resp BP Pulse Ox 98.1 F 72 20 91/50 L 73 L 09/19/17 15:15 09/19/17 16:00 09/19/17 15:15 09/19/17 15:15 09/19/17 15:15 - Medications Medications: Current Medications Alprazolam (Xanax) 0.25 mg PO BID PRN PRN Reason: Anxiety Stop: 09/21/17 10:24 Last Admin: 09/19/17 21:46 Dose: 0.25 mg Aspirin (Aspirin Chewable) 81 mg PO DAILY [facility] Last Admin: 09/19/17 10:00 Dose: 81 mg Clopidogrel Bisulfate (Plavix) 75 mg PO DAILY [facility] Last Admin: 09/19/17 09:59 Dose: 75 mg Enoxaparin Sodium (Lovenox) 40 mg SC DAILY [facility] Guaifenesin (Robitussin) 100 mg PO Q4H PRN PRN Reason: Cough Insulin Human Regular (Novolin R) 0 unit SC ACHS [facility] PRN Reason: Protocol Last Admin: 09/19/17 17:15 Dose: Not Given Losartan Potassium (Cozaar) 25 mg PO DAILY [facility] Last Admin: 09/13/17 10:05 Dose: Not Given Nicotine (Nicoderm Cq) 1 patch TD DAILY [facility] Last Admin: 09/19/17 10:00 Dose: 1 patch Rosuvastatin Calcium (Crestor) 20 mg PO HS [facility] Last Admin: 09/19/17 21:46 Dose: 20 mg Sitagliptin Phosphate (Januvia) 100 mg PO DAILY [facility] Last Admin: 09/19/17 10:00 Dose: 100 mg - Labs Labs: 09/17/17 08:16 09/17/17 08:16 PT 10.9 SECONDS (9.7-12.2) 09/12/17 19:45 INR 1.0 09/12/17 19:45 APTT 53 SECONDS (21-34) H D 09/15/17 14:21 Assessment and Plan (1) STEMI (ST elevation myocardial infarction) Status: Resolved (2) Carotid atherosclerosis Status: Acute (3) Dementia Status: Acute (4) Diabetes mellitus type 2 in nonobese Status: Chronic (5) Hypertension Status: Chronic
--- NOTE | 2017-09-19 22:58 | CP.PCM.PN ---
Subjective - Date & Time of Evaluation Date of Evaluation: 09/19/17 Time of Evaluation: 17:30 - Subjective Subjective: Patient seen and evaluated Deneis chest pain and dyspnea For EPS +/- AICD tomorrow Transfer arrangement made Physical examination - Constitutional Appears: Non-toxic, No Acute Distress - Head Exam Head Exam: ATRAUMATIC, NORMAL INSPECTION - Eye Exam Eye Exam: EOMI - ENT Exam ENT Exam: Mucous Membranes Moist - Respiratory Exam Respiratory Exam: Clear to Ausculation Bilateral - Cardiovascular Exam Cardiovascular Exam: REGULAR RHYTHM, +S1, +S2 - GI/Abdominal Exam GI & Abdominal Exam: Soft. absent: Distended, Firm, Guarding, Tenderness - Extremities Exam Extremities Exam: Normal Inspection. absent: Calf Tenderness - Back Exam Back Exam: NORMAL INSPECTION - Neurological Exam Neurological Exam: Alert, Awake, Oriented x3 - Psychiatric Exam Psychiatric exam: Normal Affect, Normal Mood Objective - Vital Signs/Intake and Output Vital Signs (last 24 hours): Temp Pulse Resp BP Pulse Ox 98.1 F 72 20 91/50 L 73 L 09/19/17 15:15 09/19/17 16:00 09/19/17 15:15 09/19/17 15:15 09/19/17 15:15 - Medications Medications: Current Medications Alprazolam (Xanax) 0.25 mg PO BID PRN PRN Reason: Anxiety Stop: 09/21/17 10:24 Last Admin: 09/19/17 21:46 Dose: 0.25 mg Aspirin (Aspirin Chewable) 81 mg PO DAILY [facility] Last Admin: 09/19/17 10:00 Dose: 81 mg Clopidogrel Bisulfate (Plavix) 75 mg PO DAILY [facility] Last Admin: 09/19/17 09:59 Dose: 75 mg Enoxaparin Sodium (Lovenox) 40 mg SC DAILY [facility] Guaifenesin (Robitussin) 100 mg PO Q4H PRN PRN Reason: Cough Insulin Human Regular (Novolin R) 0 unit SC ACHS [facility] PRN Reason: Protocol Last Admin: 09/19/17 17:15 Dose: Not Given Losartan Potassium (Cozaar) 25 mg PO DAILY [facility] Last Admin: 09/13/17 10:05 Dose: Not Given Nicotine (Nicoderm Cq) 1 patch TD DAILY [facility] Last Admin: 09/19/17 10:00 Dose: 1 patch Rosuvastatin Calcium (Crestor) 20 mg PO HS [facility] Last Admin: 09/19/17 21:46 Dose: 20 mg Sitagliptin Phosphate (Januvia) 100 mg PO DAILY [facility] Last Admin: 09/19/17 10:00 Dose: 100 mg - Labs Labs: 09/17/17 08:16 09/17/17 08:16 PT 10.9 SECONDS (9.7-12.2) 09/12/17 19:45 INR 1.0 09/12/17 19:45 APTT 53 SECONDS (21-34) H D 09/15/17 14:21 Assessment and Plan - Assessment and Plan (Free Text) Assessment: 1. Severe Ischemic CMP (Entire anterior, septal and apical segments are non viable) High risk for V Fib arrest For EPS +/-AICD on Tuesday at [place] 2. CAD: Post [place] management. ASA, Plavix, Statins (B blockers and JEANNE I if tolerated. 3. Hypotension with low Na and Chloride: Gentle IV hydration 4. OOB to ambulate. DVT anf GI prophylaxis
[2017-09-20 06:25] LABS: HEMOGLOBIN 10.6 g/dL (11.0-16.0); MEAN CELL VOLUME 87.2 fL (81.0-99.0); MEAN CORPUSCULAR HEMOGLOBIN 28.3 pg (27.0-31.0); MEAN CORPUSCULAR HGB CONC 32.5 g/dL (33.0-37.0); RBC 3.74 Mil/uL (3.80-5.20); RED CELL DISTRIBUTION WIDTH 14.3 % (11.5-14.5); WHITE BLOOD COUNT 8.9 K/uL (4.8-10.8)
[2017-09-20 06:38] LABS: INR 1.2
[2017-09-20 06:49] LABS: BLOOD UREA NITROGEN 16 mg/dL (7-17); CALCIUM 8.2 mg/dl (8.6-10.4); GFR AFRICAN-AMERICAN > 60; GFR NON-AFRICAN AMERICAN > 60
[2017-09-20] MEDS: (Novolin R) Insulin Human Regular 100 units/ml vial SC SCH ×4 (08:25→22:23)
[2017-09-20] MEDS: Enoxaparin 40 mg Syringe SC SCH (09:07)
[2017-09-21 06:38] LABS: HEMOGLOBIN 10.3 g/dL (11.0-16.0); MEAN CELL VOLUME 86.2 fL (81.0-99.0); MEAN CORPUSCULAR HEMOGLOBIN 29.1 pg (27.0-31.0); MEAN CORPUSCULAR HGB CONC 33.8 g/dL (33.0-37.0); MEAN PLATELET VOLUME 8.8 fL (7.2-11.7); RBC 3.52 Mil/uL (3.80-5.20); RED CELL DISTRIBUTION WIDTH 14.3 % (11.5-14.5); WHITE BLOOD COUNT 8.3 K/uL (4.8-10.8)
[2017-09-21 06:52] LABS: BLOOD UREA NITROGEN 14 mg/dL (7-17); CALCIUM 7.7 mg/dl (8.6-10.4); GFR AFRICAN-AMERICAN > 60; GFR NON-AFRICAN AMERICAN > 60
[2017-09-21] MEDS: (Novolin R) Insulin Human Regular 100 units/ml vial SC SCH ×3 (07:30→14:46)
[2017-09-21] MEDS: Enoxaparin 40 mg Syringe SC SCH (10:38)
--- NOTE | 2017-09-21 15:00 | RAD ---
HISTORY: desaturation COMPARISON: Comparison chest 09/12/2017 FINDINGS: LUNGS: Pulmonary vascular congestive changes with bilateral effusions mid to lower lobe alveolar-type infiltrates left greater than right. PLEURA: As above. No pneumothorax apparent. CARDIOVASCULAR: Heart size difficult to assess due to silhouetting the cardiac border the heart exhibited normal size on prior study Heart appears enlarged OSSEOUS STRUCTURES: No significant abnormalities. VISUALIZED UPPER ABDOMEN: Normal. OTHER FINDINGS: None. IMPRESSION: Pulmonary vascular congestion with bilateral alveolar-type infiltrates and bilateral effusions left greater than right.
--- NOTE | 2017-09-21 15:37 | CP.PCM.PN ---
Objective - Vital Signs/Intake and Output Vital Signs (last 24 hours): Temp Pulse Resp BP Pulse Ox 98.7 F 86 18 103/68 94 L 09/21/17 08:20 09/21/17 08:20 09/21/17 08:20 09/21/17 14:59 09/21/17 08:20 Intake and Output: 09/21/17 09/21/17 06:59 18:59 Output Total 1 Balance -1 - Medications Medications: Current Medications Aspirin (Aspirin Chewable) 81 mg PO DAILY [facility] Last Admin: 09/21/17 10:38 Dose: 81 mg Clopidogrel Bisulfate (Plavix) 75 mg PO DAILY [facility] Last Admin: 09/21/17 10:39 Dose: 75 mg Enoxaparin Sodium (Lovenox) 40 mg SC DAILY [facility] Last Admin: 09/21/17 10:38 Dose: 40 mg Guaifenesin (Robitussin) 100 mg PO Q4H PRN PRN Reason: Cough Insulin Human Regular (Novolin R) 0 unit SC [facility] PRN Reason: Protocol Last Admin: 09/21/17 07:30 Dose: Not Given Losartan Potassium (Cozaar) 25 mg PO DAILY [facility] Last Admin: 09/13/17 10:05 Dose: Not Given Nicotine (Nicoderm Cq) 1 patch TD DAILY [facility] Last Admin: 09/21/17 10:39 Dose: 1 patch Rosuvastatin Calcium (Crestor) 20 mg PO HS [facility] Last Admin: 09/20/17 22:24 Dose: Not Given Sitagliptin Phosphate (Januvia) 100 mg PO DAILY [facility] Last Admin: 09/21/17 10:39 Dose: 100 mg - Labs Labs: 09/21/17 06:31 09/21/17 06:31 PT 13.0 SECONDS (9.7-12.2) H 09/20/17 06:18 INR 1.2 09/20/17 06:18 APTT 53 SECONDS (21-34) H D 09/15/17 14:21
--- NOTE | 2017-09-21 16:48 | PCM.RRT ---
CREDIT CONTROL ASSISTANT Nurses Assessment - Situation Date: 09/21/17 Time CREDIT CONTROL ASSISTANT was called: 14:45 CREDIT CONTROL ASSISTANT Responder Arrival Time:: 14:45 CREDIT CONTROL ASSISTANT Location:: Med/Surg Room Number: 664A CREDIT CONTROL ASSISTANT Reason for Call: O2 Saturation below 90% CREDIT CONTROL ASSISTANT Called By: RN - IV IV Inserted during CREDIT CONTROL ASSISTANT?: No - Respiratory CREDIT CONTROL ASSISTANT Delivery Method: Nasal Cannula @L/min, Non Rebreather @% Oxygen Flow Rate: 5 Received Nebulizer Treatments: No Was the Patient Ventilated with Bag/Mask 100% O2?: No Secretions Suctioned?: No Was the Patient Intubated?: No Was the Patient Placed on a Ventilator?: No - Medication Medications Administered During CREDIT CONTROL ASSISTANT: Lasix 10mg IVP stat - Diagnostic Test Ordered EKG: No Chest X-Ray: Yes (Compared to prior study 09/12/17- significant bilateral congestion ) CT Scan: No CPR started during CREDIT CONTROL ASSISTANT?: No - [place] Coma Scale Coma Scale Eye Opening: Spontaneous Coma Scale Motor: Obeys Commands Movement Coma Scale Verbal: Oriented Coma Scale Total: 15 - Time CREDIT CONTROL ASSISTANT Ended Time CREDIT CONTROL ASSISTANT Ended: 15:00 - Recommendations 5) CREDIT CONTROL ASSISTANT Level of Care Recommendations: Remain in current setting Notifications: Attending Physician - Neurological Status (Select all that apply): Alert, Oriented - Respiratory Oxygen Delivery Method: Nasal Cannula @L/min (5L) - Constitutional Appears: No Acute Distress - Head Head Exam: NORMAL INSPECTION, NORMOCEPHALIC - Eyes Eye Exam: EOMI, Normal appearance, PERRL - Respiratory Exam Respiratory Exam: Decreased Breath Sounds, NORMAL BREATHING PATTERN - Cardiovascular Exam Cardiovascular Exam: REGULAR RHYTHM - GI/Abdominal Exam GI & Abdominal Exam: Soft, Normal Bowel Sounds - Neurological Exam Neurological Exam: Alert, Awake, Oriented x3 - Extremities Exam Extremities Exam: Full ROM, Normal Inspection Plan - Assessment of Findings&Treatment Plan Patient originally on 2L NC-satting at 88%, tachypneic at 26 BPM, she was placed on nonbreather for 4-5 min, where her O2 sat with 94-96%. On exam decreased breath sounds Left sides, rales noted on R lower lung bases. She was sat upright, and placed back on NC @ 5L. Repeat CXR was ordered and compared to 09/12/17 CXR- obvious bilateral LLB congestion. Vitals where taken BP 110/60s - she was given Lasix 10mg IVP stat. Repeat BP was 104/57- after lasix, repeat BP 1 hour later was 97/59. Patient is asymptomatic, resting.
--- NOTE | 2017-09-21 22:45 | CP.PCM.PN ---
Subjective - Date & Time of Evaluation Date of Evaluation: 09/21/17 Time of Evaluation: 08:30 - Subjective Subjective: Patient seen and evaluated Comfortable Physical examination - Constitutional Appears: Non-toxic, No Acute Distress - Head Exam Head Exam: ATRAUMATIC, NORMAL INSPECTION - Eye Exam Eye Exam: EOMI - ENT Exam ENT Exam: Mucous Membranes Moist - Respiratory Exam Respiratory Exam: Clear to Ausculation Bilateral - Cardiovascular Exam Cardiovascular Exam: REGULAR RHYTHM, +S1, +S2 - GI/Abdominal Exam GI & Abdominal Exam: Soft. absent: Distended, Firm, Guarding, Tenderness - Extremities Exam Extremities Exam: Normal Inspection. absent: Calf Tenderness - Back Exam Back Exam: NORMAL INSPECTION - Neurological Exam Neurological Exam: Alert, Awake, Oriented x3 - Psychiatric Exam Psychiatric exam: Normal Affect, Normal Mood Objective - Vital Signs/Intake and Output Vital Signs (last 24 hours): Temp Pulse Resp BP Pulse Ox 98.2 F 92 H 20 102/66 97 09/21/17 15:15 09/21/17 15:15 09/21/17 15:15 09/21/17 15:15 09/21/17 15:15 - Medications Medications: Current Medications Aspirin (Aspirin Chewable) 81 mg PO DAILY [facility] Last Admin: 09/21/17 10:38 Dose: 81 mg Clopidogrel Bisulfate (Plavix) 75 mg PO DAILY [facility] Last Admin: 09/21/17 10:39 Dose: 75 mg Enoxaparin Sodium (Lovenox) 40 mg SC DAILY [facility] Last Admin: 09/21/17 10:38 Dose: 40 mg Guaifenesin (Robitussin) 100 mg PO Q4H PRN PRN Reason: Cough Insulin Human Regular (Novolin R) 0 unit SC [facility] PRN Reason: Protocol Last Admin: 09/21/17 14:46 Dose: Not Given Losartan Potassium (Cozaar) 25 mg PO DAILY [facility] Last Admin: 09/13/17 10:05 Dose: Not Given Nicotine (Nicoderm Cq) 1 patch TD DAILY [facility] Last Admin: 09/21/17 10:39 Dose: 1 patch Rosuvastatin Calcium (Crestor) 20 mg PO HS [facility] Last Admin: 09/20/17 22:24 Dose: Not Given Sitagliptin Phosphate (Januvia) 100 mg PO DAILY [facility] Last Admin: 09/21/17 10:39 Dose: 100 mg - Labs Labs: 09/21/17 06:31 09/21/17 06:31 PT 13.0 SECONDS (9.7-12.2) H 09/20/17 06:18 INR 1.2 09/20/17 06:18 APTT 53 SECONDS (21-34) H D 09/15/17 14:21 Assessment and Plan - Assessment and Plan (Free Text) Assessment: 1. Severe Ischemic CMP (Entire anterior, septal and apical segments are non viable) High risk for V Fib arrest For EPS +/-AICD on Tuesday at [facility] 2. CAD: Post [place] management. ASA, Plavix, Statins (B blockers and JEANNE I if tolerated. 3. Hypotension with low Na and Chloride: Gentle IV hydration 4. OOB to ambulate. DVT anf GI prophylaxis
--- NOTE | 2017-09-21 23:07 | CP.PCM.PN ---
Subjective - Date & Time of Evaluation Date of Evaluation: 09/20/17 Time of Evaluation: 18:00 - Subjective Subjective: PT SEEN AND EXAMINED AT BEDSIDE Objective - Vital Signs/Intake and Output Vital Signs (last 24 hours): Temp Pulse Resp BP Pulse Ox 98.2 F 92 H 20 102/66 97 09/21/17 15:15 09/21/17 15:15 09/21/17 15:15 09/21/17 15:15 09/21/17 15:15 - Medications Medications: Current Medications Aspirin (Aspirin Chewable) 81 mg PO DAILY [facility] Last Admin: 09/21/17 10:38 Dose: 81 mg Clopidogrel Bisulfate (Plavix) 75 mg PO DAILY [facility] Last Admin: 09/21/17 10:39 Dose: 75 mg Enoxaparin Sodium (Lovenox) 40 mg SC DAILY [facility] Last Admin: 09/21/17 10:38 Dose: 40 mg Guaifenesin (Robitussin) 100 mg PO Q4H PRN PRN Reason: Cough Insulin Human Regular (Novolin R) 0 unit SC [facility] PRN Reason: Protocol Last Admin: 09/21/17 14:46 Dose: Not Given Losartan Potassium (Cozaar) 25 mg PO DAILY [facility] Last Admin: 09/13/17 10:05 Dose: Not Given Nicotine (Nicoderm Cq) 1 patch TD DAILY [facility] Last Admin: 09/21/17 10:39 Dose: 1 patch Rosuvastatin Calcium (Crestor) 20 mg PO HS [facility] Last Admin: 09/20/17 22:24 Dose: Not Given Sitagliptin Phosphate (Januvia) 100 mg PO DAILY [facility] Last Admin: 09/21/17 10:39 Dose: 100 mg - Labs Labs: 09/21/17 06:31 09/21/17 06:31 PT 13.0 SECONDS (9.7-12.2) H 09/20/17 06:18 INR 1.2 09/20/17 06:18 APTT 53 SECONDS (21-34) H D 09/15/17 14:21 Assessment and Plan (1) STEMI (ST elevation myocardial infarction) Status: Resolved (2) Carotid atherosclerosis Status: Acute (3) Dementia Status: Acute (4) Diabetes mellitus type 2 in nonobese Status: Chronic (5) Hypertension Status: Chronic
--- NOTE | 2017-09-21 23:08 | CP.PCM.PN ---
Subjective - Date & Time of Evaluation Date of Evaluation: 09/21/17 Time of Evaluation: 18:00 - Subjective Subjective: PT SEEN AND EXAMINED AT BEDSIDE Objective - Vital Signs/Intake and Output Vital Signs (last 24 hours): Temp Pulse Resp BP Pulse Ox 98.2 F 92 H 20 102/66 97 09/21/17 15:15 09/21/17 15:15 09/21/17 15:15 09/21/17 15:15 09/21/17 15:15 - Medications Medications: Current Medications Aspirin (Aspirin Chewable) 81 mg PO DAILY [facility] Last Admin: 09/21/17 10:38 Dose: 81 mg Clopidogrel Bisulfate (Plavix) 75 mg PO DAILY [facility] Last Admin: 09/21/17 10:39 Dose: 75 mg Enoxaparin Sodium (Lovenox) 40 mg SC DAILY [facility] Last Admin: 09/21/17 10:38 Dose: 40 mg Guaifenesin (Robitussin) 100 mg PO Q4H PRN PRN Reason: Cough Insulin Human Regular (Novolin R) 0 unit SC [facility] PRN Reason: Protocol Last Admin: 09/21/17 14:46 Dose: Not Given Losartan Potassium (Cozaar) 25 mg PO DAILY [facility] Last Admin: 09/13/17 10:05 Dose: Not Given Nicotine (Nicoderm Cq) 1 patch TD DAILY [facility] Last Admin: 09/21/17 10:39 Dose: 1 patch Rosuvastatin Calcium (Crestor) 20 mg PO HS [facility] Last Admin: 09/20/17 22:24 Dose: Not Given Sitagliptin Phosphate (Januvia) 100 mg PO DAILY [facility] Last Admin: 09/21/17 10:39 Dose: 100 mg - Labs Labs: 09/21/17 06:31 09/21/17 06:31 PT 13.0 SECONDS (9.7-12.2) H 09/20/17 06:18 INR 1.2 09/20/17 06:18 APTT 53 SECONDS (21-34) H D 09/15/17 14:21 Assessment and Plan (1) STEMI (ST elevation myocardial infarction) Status: Resolved (2) Carotid atherosclerosis Status: Acute (3) Dementia Status: Acute (4) Diabetes mellitus type 2 in nonobese Status: Chronic (5) Hypertension Status: Chronic
[2017-09-22] MEDS: (Novolin R) Insulin Human Regular 100 units/ml vial SC SCH ×4 (07:31→22:55)
[2017-09-22 08:20] LABS: HEMOGLOBIN 10.8 g/dL (11.0-16.0); MEAN CELL VOLUME 86.7 fL (81.0-99.0); MEAN CORPUSCULAR HEMOGLOBIN 29.2 pg (27.0-31.0); MEAN CORPUSCULAR HGB CONC 33.7 g/dL (33.0-37.0); MEAN PLATELET VOLUME 8.3 fL (7.2-11.7); RBC 3.7 Mil/uL (3.80-5.20); RED CELL DISTRIBUTION WIDTH 14.4 % (11.5-14.5); WHITE BLOOD COUNT 7.7 K/uL (4.8-10.8)
[2017-09-22 08:38] LABS: BLOOD UREA NITROGEN 16 mg/dL (7-17); CALCIUM 8.1 mg/dl (8.6-10.4); GFR AFRICAN-AMERICAN > 60; GFR NON-AFRICAN AMERICAN > 60
[2017-09-22] MEDS: Enoxaparin 40 mg Syringe SC SCH (09:42)
--- NOTE | 2017-09-22 20:02 | CP.PCM.PN ---
Subjective - Date & Time of Evaluation Date of Evaluation: 09/22/17 Time of Evaluation: 18:55 - Subjective Subjective: pt seen and examined s/p AICD placement, pt is doing well Objective - Vital Signs/Intake and Output Vital Signs (last 24 hours): Temp Pulse Resp BP Pulse Ox 98.2 F 74 20 99/60 L 95 09/22/17 16:00 09/22/17 16:36 09/22/17 16:00 09/22/17 16:00 09/22/17 16:00 - Medications Medications: Current Medications Aspirin (Aspirin Chewable) 81 mg PO DAILY [facility] Last Admin: 09/22/17 09:42 Dose: 81 mg Clopidogrel Bisulfate (Plavix) 75 mg PO DAILY [facility] Last Admin: 09/22/17 09:42 Dose: 75 mg Enoxaparin Sodium (Lovenox) 40 mg SC DAILY [facility] Last Admin: 09/22/17 09:42 Dose: 40 mg Guaifenesin (Robitussin) 100 mg PO Q4H PRN PRN Reason: Cough Insulin Human Regular (Novolin R) 0 unit SC [facility] PRN Reason: Protocol Last Admin: 09/22/17 17:50 Dose: Not Given Losartan Potassium (Cozaar) 25 mg PO DAILY [facility] Last Admin: 09/13/17 10:05 Dose: Not Given Nicotine (Nicoderm Cq) 1 patch TD DAILY [facility] Last Admin: 09/22/17 09:41 Dose: 1 patch Rosuvastatin Calcium (Crestor) 20 mg PO HS [facility] Last Admin: 09/20/17 22:24 Dose: Not Given Sitagliptin Phosphate (Januvia) 100 mg PO DAILY [facility] Last Admin: 09/22/17 09:42 Dose: 100 mg - Labs Labs: 09/22/17 08:15 09/22/17 08:15 PT 13.0 SECONDS (9.7-12.2) H 09/20/17 06:18 INR 1.2 09/20/17 06:18 APTT 53 SECONDS (21-34) H D 09/15/17 14:21 - Constitutional Appears: No Acute Distress - Head Exam Head Exam: ATRAUMATIC, NORMAL INSPECTION, NORMOCEPHALIC - Eye Exam Eye Exam: EOMI, Normal appearance, PERRL Pupil Exam: NORMAL ACCOMODATION, PERRL - Respiratory Exam Respiratory Exam: Clear to Ausculation Bilateral, NORMAL BREATHING PATTERN - Cardiovascular Exam Cardiovascular Exam: REGULAR RHYTHM, +S1, +S2. absent: Murmur - GI/Abdominal Exam GI & Abdominal Exam: Soft, Normal Bowel Sounds. absent: Tenderness Assessment and Plan (1) STEMI (ST elevation myocardial infarction) Status: Resolved (2) Carotid atherosclerosis Status: Acute (3) Dementia Status: Acute (4) Diabetes mellitus type 2 in nonobese Status: Chronic (5) Hypertension Status: Chronic
[2017-09-23] MEDS: (Novolin R) Insulin Human Regular 100 units/ml vial SC SCH ×5 (09:46→22:47)
[2017-09-23] MEDS: Enoxaparin 40 mg Syringe SC SCH (09:48)
--- NOTE | 2017-09-23 12:45 | CARD ---
APPROVED REPORT EKG Measurement Heart [id number] [id number] <Conclusion> Sinus bradycardia Left anterior fascicular block Anterolateral infarct, possibly acute ACUTE NE / STEMI Abnormal ECG
--- NOTE | 2017-09-23 14:39 | RAD ---
HISTORY: hypoxia COMPARISON: Comparison is made with 09/21/2017 FINDINGS: LUNGS: Interval [id number] improvement in the mid and lower lungs since the previous exam. Persistent opacity at the lung bases likely representing combination of atelectasis and pleural effusion. PLEURA: Bilateral pleural effusions are again noted. CARDIOVASCULAR: The cardiac silhouette is enlarged. Left-sided single wire a ACD/defibrillator is again seen in place. OSSEOUS STRUCTURES: No significant abnormalities. VISUALIZED UPPER ABDOMEN: Normal. OTHER FINDINGS: None. IMPRESSION: Interval improvement in the lungs since the previous exam. Persistent bilateral pleural effusions.
[2017-09-23] MEDS: Albuterol 0.042% Inhal Sol (1.25 mg/3 mL) UD INH SCH (19:48)
--- NOTE | 2017-09-23 23:31 | CP.PCM.PN ---
Subjective - Date & Time of Evaluation Date of Evaluation: 09/24/17 Time of Evaluation: 18:00 - Subjective Subjective: Pt seen and examined at bedside, is feeling better, is for subacute rehab, she has some cough, sob and wheezing Objective - Vital Signs/Intake and Output Vital Signs (last 24 hours): Temp Pulse Resp BP Pulse Ox 98.2 F 85 20 98/60 L 99 09/23/17 15:00 09/23/17 19:48 09/23/17 15:00 09/23/17 15:00 09/23/17 15:00 Intake and Output: 09/23/17 09/24/17 18:59 06:59 Intake Total 500 Balance 500 - Medications Medications: Current Medications Acetaminophen (Tylenol 325mg Tab) 650 mg PO Q6 PRN PRN Reason: Pain, moderate (4-7) Last Admin: 09/23/17 09:45 Dose: 650 mg Albuterol Sulfate (Albuterol 0.042% Inhal Kathy (1.25mg/3ml) Ud) 1.25 mg INH RTID [facility] Last Admin: 09/23/17 19:48 Dose: 1.25 mg Aspirin (Aspirin Chewable) 81 mg PO DAILY [facility] Last Admin: 09/23/17 09:45 Dose: 81 mg Clopidogrel Bisulfate (Plavix) 75 mg PO DAILY [facility] Last Admin: 09/23/17 09:45 Dose: 75 mg Enoxaparin Sodium (Lovenox) 40 mg SC DAILY [facility] Last Admin: 09/23/17 09:48 Dose: 40 mg Furosemide (Lasix) 20 mg PO DAILY [facility] Last Admin: 09/23/17 09:48 Dose: Not Given Guaifenesin (Robitussin) 100 mg PO Q4H PRN PRN Reason: Cough Insulin Human Regular (Novolin R) 0 unit SC [facility] PRN Reason: Protocol Last Admin: 09/23/17 22:47 Dose: Not Given Losartan Potassium (Cozaar) 25 mg PO DAILY [facility] Last Admin: 09/13/17 10:05 Dose: Not Given Nicotine (Nicoderm Cq) 1 patch TD DAILY [facility] Last Admin: 09/23/17 09:45 Dose: 1 patch Rosuvastatin Calcium (Crestor) 20 mg PO HS [facility] Last Admin: 09/23/17 22:35 Dose: 20 mg Sitagliptin Phosphate (Januvia) 100 mg PO DAILY [facility] Last Admin: 09/23/17 09:45 Dose: 100 mg - Labs Labs: 09/22/17 08:15 09/22/17 08:15 PT 13.0 SECONDS (9.7-12.2) H 09/20/17 06:18 INR 1.2 09/20/17 06:18 APTT 53 SECONDS (21-34) H D 09/15/17 14:21 - Constitutional Appears: No Acute Distress - Head Exam Head Exam: ATRAUMATIC, NORMAL INSPECTION, NORMOCEPHALIC - Eye Exam Eye Exam: EOMI, Normal appearance, PERRL Pupil Exam: NORMAL ACCOMODATION, PERRL - ENT Exam ENT Exam: Mucous Membranes Moist - Respiratory Exam Respiratory Exam: Decreased Breath Sounds, Rales, Wheezes - Cardiovascular Exam Cardiovascular Exam: REGULAR RHYTHM, +S1, +S2. absent: Murmur Assessment and Plan (1) STEMI (ST elevation myocardial infarction) Status: Resolved (2) Carotid atherosclerosis Status: Acute (3) Dementia Status: Acute (4) Diabetes mellitus type 2 in nonobese Status: Chronic (5) Hypertension Status: Chronic (6) Dilated cardiomyopathy Status: Acute
[2017-09-24 07:49] LABS: BASO % 0.3 % (0.0-2.0); EOS % 0.2 % (0.0-4.0); HEMOGLOBIN 10.6 g/dL (11.0-16.0); LYMPH % 11.1 % (20.0-40.0); MEAN CELL VOLUME 86.7 fL (81.0-99.0); MEAN CORPUSCULAR HEMOGLOBIN 29.2 pg (27.0-31.0); MEAN CORPUSCULAR HGB CONC 33.7 g/dL (33.0-37.0); MEAN PLATELET VOLUME 8.7 fL (7.2-11.7); MONO # 0.7 K/uL (0.0-0.8); MONO % 7.4 % (0.0-10.0); NEUT # 7.3 K/uL (1.8-7.0); RBC 3.62 Mil/uL (3.80-5.20); RED CELL DISTRIBUTION WIDTH 13.8 % (11.5-14.5)
[2017-09-24] MEDS: (Novolin R) Insulin Human Regular 100 units/ml vial SC SCH ×4 (07:52→22:00)
[2017-09-24 08:00] LABS: BLOOD UREA NITROGEN 21 mg/dL (7-17); CALCIUM 8.6 mg/dl (8.6-10.4); GFR AFRICAN-AMERICAN > 60; GFR NON-AFRICAN AMERICAN > 60
[2017-09-24] MEDS: Albuterol 0.042% Inhal Sol (1.25 mg/3 mL) UD INH SCH ×3 (09:34→20:21)
[2017-09-24] MEDS: Enoxaparin 40 mg Syringe SC SCH (10:14)
[2017-09-24 15:04] LABS: ABG ALLEN TEST POS; ARTERIAL BLOOD GAS HCO3 26.9 mmol/L (21-28); ARTERIAL BLOOD GAS HEMOGLOBIN 10.6 g/dL (11.7-17.4); ARTERIAL BLOOD GAS O2 SAT 94.1 % (95-98); ARTERIAL BLOOD GAS PCO2 35 mm/Hg (35-45); ARTERIAL BLOOD GAS PH 7.48 (7.35-7.45); ARTERIAL BLOOD GAS PO2 60 mm/Hg (80-100); ARTERIAL BLOOD GAS TCO2 27.2 mmol/L (22-28)
--- NOTE | 2017-09-24 17:41 | PN ---
DATE: PHYSICAL EXAMINATION GENERAL: The patient is alert, oriented, afebrile. She is not in acute distress at rest. There is no more fainting. Cough is easier. There is no vomiting. No chest pain. VITAL SIGNS: Blood pressure is 94/62, pulse 68 per minute, respirations 20, hemoglobin and oxygen saturation of 99%. HEART: Regular. There is no gallop rhythm. LUNGS: Diminished breath sounds over lung bases. Rhonchi decreased. ABDOMEN: Soft. EXTREMITIES: Legs, no edema. LABORATORY DATA: White count is 9000, hemoglobin 10.6, platelet count 468,000. Serum sodium 132, potassium 5.1, chloride 97, BUN 21, creatinine 0.7, blood sugar 136. Chest x-ray shows decrease in pleural effusions consistent with CHF and status post AICD placement. IMPRESSION: Respiratory insufficiency, hypertensive cardiovascular disease with congestive heart failure, diabetes mellitus, fainting, electrolyte imbalance, cardiac arrhythmias. PLAN: To continue with the current management. Hold Lasix for one day because of changes in electrolytes. Monitor progress. Follow with blood tests. Chest x-ray and cardiology follow up. Kurtis Hoang MD
--- NOTE | 2017-09-24 23:24 | CP.PCM.PN ---
Subjective - Date & Time of Evaluation Date of Evaluation: 09/24/17 Time of Evaluation: 13:50 - Subjective Subjective: PT SEEN AND EXAMINED AT BEDSIDE Objective - Vital Signs/Intake and Output Vital Signs (last 24 hours): Temp Pulse Resp BP Pulse Ox 98.0 F 94 H 20 99/66 L 96 09/24/17 15:30 09/24/17 15:30 09/24/17 15:30 09/24/17 15:30 09/24/17 15:30 - Medications Medications: Current Medications Acetaminophen (Tylenol 325mg Tab) 650 mg PO Q6 PRN PRN Reason: Pain, moderate (4-7) Last Admin: 09/23/17 09:45 Dose: 650 mg Albuterol Sulfate (Albuterol 0.042% Inhal Kathy (1.25mg/3ml) Ud) 1.25 mg INH RTID [facility] Last Admin: 09/24/17 20:21 Dose: 1.25 mg Aspirin (Aspirin Chewable) 81 mg PO DAILY [facility] Last Admin: 09/24/17 10:13 Dose: 81 mg Clopidogrel Bisulfate (Plavix) 75 mg PO DAILY [facility] Last Admin: 09/24/17 10:15 Dose: 75 mg Enoxaparin Sodium (Lovenox) 40 mg SC DAILY [facility] Last Admin: 09/24/17 10:14 Dose: 40 mg Furosemide (Lasix) 20 mg PO DAILY [facility] Last Admin: 09/24/17 10:14 Dose: 20 mg Guaifenesin (Robitussin) 100 mg PO Q4H PRN PRN Reason: Cough Insulin Human Regular (Novolin R) 0 unit SC ACHS [facility] PRN Reason: Protocol Last Admin: 09/24/17 17:00 Dose: 1 unit Losartan Potassium (Cozaar) 25 mg PO DAILY [facility] Last Admin: 09/13/17 10:05 Dose: Not Given Nicotine (Nicoderm Cq) 1 patch TD DAILY [facility] Last Admin: 09/24/17 10:14 Dose: 1 patch Rosuvastatin Calcium (Crestor) 20 mg PO HS [facility] Last Admin: 09/24/17 21:47 Dose: 20 mg Sitagliptin Phosphate (Januvia) 100 mg PO DAILY [facility] Last Admin: 09/24/17 10:14 Dose: 100 mg Spironolactone (Aldactone) 12.5 mg PO DAILY [facility] - Labs Labs: 09/24/17 07:31 09/24/17 07:31 PT 13.0 SECONDS (9.7-12.2) H 09/20/17 06:18 INR 1.2 09/20/17 06:18 APTT 53 SECONDS (21-34) H D 09/15/17 14:21 Assessment and Plan (1) STEMI (ST elevation myocardial infarction) Status: Resolved (2) Carotid atherosclerosis Status: Acute (3) Dementia Status: Acute (4) Diabetes mellitus type 2 in nonobese Status: Chronic (5) Hypertension Status: Chronic (6) Dilated cardiomyopathy Status: Acute
[2017-09-25] MEDS: Albuterol 0.042% Inhal Sol (1.25 mg/3 mL) UD INH SCH ×3 (07:20→20:33)
[2017-09-25] MEDS: (Novolin R) Insulin Human Regular 100 units/ml vial SC SCH ×4 (07:51→22:12)
[2017-09-25 08:37] LABS: BLOOD UREA NITROGEN 20 mg/dL (7-17); CALCIUM 8.5 mg/dl (8.6-10.4); GFR AFRICAN-AMERICAN > 60; GFR NON-AFRICAN AMERICAN > 60
[2017-09-25] MEDS: Enoxaparin 40 mg Syringe SC SCH (10:29)
--- NOTE | 2017-09-25 11:40 | CT ---
CT chest History: Interstitial lung disease. Comparison: X-ray dated 09/23/2017 Technique: Multiple contiguous axial images were performed through the chest without the use of intravenous contrast. Subsequently, sagittal and coronal reformatted images were obtained. This CT exam was performed using one or more of the following dose reduction techniques: Automated exposure control, adjustment of the mA and/or kV according to patient size, and/or use of iterative reconstruction technique. Findings: Right lung: Large right pleural effusion. Dense consolidation seen within the posterior aspect of the right middle lobe and throughout the right lower lobe suggestive for underlying atelectasis and or infiltrate. Increased interstitial lung markings throughout the right lung. Apical pleural thickening. Few scattered nodular densities for example a 4 millimeter density is seen within the anterior aspect of the right upper lobe on series 3, image 42. Thickening along the fissure with additional milder areas of linear consolidative changes. Post treatment interval followup imaging would be helpful to exclude underlying lesion. Left lung: Large left pleural effusion. Near complete consolidation and/or atelectasis of the left lung suggestive for infiltrate and or atelectasis. Post treatment followup is recommended to exclude underlying lesion. Scattered nodules for example in the posterior aspect of the left upper lobe measuring 4 millimeters on series 3, image 23. Additional milder scattered areas of nodular consolidation within the inferior left upper lobe Inspissated secretions within the trachea and central airways. No significant axillary adenopathy. Heterogeneous thyroid with a suggestion of a 4 millimeter right thyroid nodule. Dense calcification and plaque throughout the visualized aorta as well as the take off vessels. Aneurysmal prominence of the ascending thoracic aorta measuring up to 3.5 centimeters. Dense coronary calcifications are noted. Few shotty precarinal lymph nodes measuring up to 7 millimeters. Limited evaluation for hilar lymph nodes. No significant pericardial effusion. Prominent liver. Distended gallbladder. Splenic calcifications. Nodular thickening of the adrenal glands. Pancreas preserved. Small hiatal hernia. 2.1 centimeter right renal cyst. Somewhat edematous appearance of the bilateral renal parenchymal cortices of uncertain clinical etiology. Correlation with renal function studies and/or renal ultrasound of the helpful if clinically indicated. Degenerative changes in the spine. Left-sided pacemaker noted. Impression: 1. Large right pleural effusion. Dense consolidation seen within the posterior aspect of the right middle lobe and throughout the right lower lobe suggestive for underlying atelectasis and or infiltrate. Increased interstitial lung markings throughout the right lung. Apical pleural thickening. Few scattered nodular densities for example a 4 millimeter density is seen within the anterior aspect of the right upper lobe on series 3, image 42. Thickening along the fissure with additional milder areas of linear consolidative changes. Post treatment interval followup imaging would be helpful to exclude underlying lesion. 2. Large left pleural effusion. Near complete consolidation and/or atelectasis of the left lung suggestive for infiltrate and or atelectasis. Post treatment followup is recommended to exclude underlying lesion. Scattered nodules for example in the posterior aspect of the left upper lobe measuring 4 millimeters on series 3, image 23. Additional milder scattered areas of nodular consolidation within the inferior left upper lobe 3. Heterogeneous thyroid with a suggestion of a 4 millimeter right thyroid nodule. 4. Dense calcification and plaque throughout the visualized aorta as well as the take off vessels. Aneurysmal prominence of the ascending thoracic aorta measuring up to 3.5 centimeters. 5. Dense coronary calcifications are noted. 6. 2.1 centimeter right renal cyst. Somewhat edematous appearance of the bilateral renal parenchymal cortices of uncertain clinical etiology. Correlation with renal function studies and/or renal ultrasound of the helpful if clinically indicated.
--- NOTE | 2017-09-25 16:48 | CP.PCM.PN ---
Subjective - Date & Time of Evaluation Date of Evaluation: 09/24/17 Time of Evaluation: 15:10 - Subjective Subjective: Patient seen and evaluated Comfortable S/P AICD Awaiting rehab placement Physical examination - Constitutional Appears: Non-toxic, No Acute Distress - Head Exam Head Exam: ATRAUMATIC, NORMAL INSPECTION - Eye Exam Eye Exam: EOMI - ENT Exam ENT Exam: Mucous Membranes Moist - Respiratory Exam Respiratory Exam: Clear to Ausculation Bilateral - Cardiovascular Exam Cardiovascular Exam: REGULAR RHYTHM, +S1, +S2 - GI/Abdominal Exam GI & Abdominal Exam: Soft. absent: Distended, Firm, Guarding, Tenderness - Extremities Exam Extremities Exam: Normal Inspection. absent: Calf Tenderness - Back Exam Back Exam: NORMAL INSPECTION - Neurological Exam Neurological Exam: Alert, Awake, Oriented x3 - Psychiatric Exam Psychiatric exam: Normal Affect, Normal Mood Objective - Vital Signs/Intake and Output Vital Signs (last 24 hours): Temp Pulse Resp BP Pulse Ox 97.7 F 73 20 97/59 L 100 09/25/17 08:59 09/25/17 08:59 09/25/17 08:59 09/25/17 08:59 09/25/17 08:59 Intake and Output: 09/25/17 09/25/17 06:59 18:59 Intake Total 240 Balance 240 - Medications Medications: Current Medications Acetaminophen (Tylenol 325mg Tab) 650 mg PO Q6 PRN PRN Reason: Pain, moderate (4-7) Last Admin: 09/23/17 09:45 Dose: 650 mg Albuterol Sulfate (Albuterol 0.042% Inhal Kathy (1.25mg/3ml) Ud) 1.25 mg INH RTID [facility] Last Admin: 09/25/17 13:39 Dose: 1.25 mg Aspirin (Aspirin Chewable) 81 mg PO DAILY [facility] Last Admin: 09/25/17 10:28 Dose: 81 mg Clopidogrel Bisulfate (Plavix) 75 mg PO DAILY [facility] Last Admin: 09/25/17 10:28 Dose: 75 mg Enoxaparin Sodium (Lovenox) 40 mg SC DAILY [facility] Last Admin: 09/25/17 10:29 Dose: 40 mg Furosemide (Lasix) 20 mg PO DAILY [facility] Last Admin: 09/24/17 10:14 Dose: 20 mg Guaifenesin (Robitussin) 100 mg PO Q4H PRN PRN Reason: Cough Insulin Human Regular (Novolin R) 0 unit SC ACHS [facility] PRN Reason: Protocol Last Admin: 09/25/17 12:22 Dose: Not Given Losartan Potassium (Cozaar) 25 mg PO DAILY [facility] Last Admin: 09/13/17 10:05 Dose: Not Given Nicotine (Nicoderm Cq) 1 patch TD DAILY [facility] Last Admin: 09/25/17 10:28 Dose: 1 patch Rosuvastatin Calcium (Crestor) 20 mg PO HS [facility] Last Admin: 09/24/17 21:47 Dose: 20 mg Sitagliptin Phosphate (Januvia) 100 mg PO DAILY [facility] Last Admin: 09/25/17 10:28 Dose: 100 mg Spironolactone (Aldactone) 12.5 mg PO DAILY [facility] Last Admin: 09/25/17 10:28 Dose: Not Given - Labs Labs: 09/24/17 07:31 09/25/17 08:06 PT 13.0 SECONDS (9.7-12.2) H 09/20/17 06:18 INR 1.2 09/20/17 06:18 APTT 53 SECONDS (21-34) H D 09/15/17 14:21 Assessment and Plan - Assessment and Plan (Free Text) Assessment: 1. 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 CAD: Post [place] management. ASA, Plavix, Statins (B blockers and JEANNE I if tolerated. 3. Hypotension with low Na and Chloride: Gentle IV hydration 4. OOB to ambulate. DVT anf GI prophylaxis
--- NOTE | 2017-09-25 16:49 | CP.PCM.PN ---
Subjective - Date & Time of Evaluation Date of Evaluation: 09/25/17 Time of Evaluation: 07:10 - Subjective Subjective: Patient seen and evaluated Comfortable S/P AICD Awaiting rehab placement Physical examination - Constitutional Appears: Non-toxic, No Acute Distress - Head Exam Head Exam: ATRAUMATIC, NORMAL INSPECTION - Eye Exam Eye Exam: EOMI - ENT Exam ENT Exam: Mucous Membranes Moist - Respiratory Exam Respiratory Exam: Clear to Ausculation Bilateral - Cardiovascular Exam Cardiovascular Exam: REGULAR RHYTHM, +S1, +S2 - GI/Abdominal Exam GI & Abdominal Exam: Soft. absent: Distended, Firm, Guarding, Tenderness - Extremities Exam Extremities Exam: Normal Inspection. absent: Calf Tenderness - Back Exam Back Exam: NORMAL INSPECTION - Neurological Exam Neurological Exam: Alert, Awake, Oriented x3 - Psychiatric Exam Psychiatric exam: Normal Affect, Normal Mood Objective - Vital Signs/Intake and Output Vital Signs (last 24 hours): Temp Pulse Resp BP Pulse Ox 97.7 F 73 20 97/59 L 100 09/25/17 08:59 09/25/17 08:59 09/25/17 08:59 09/25/17 08:59 09/25/17 08:59 Intake and Output: 09/25/17 09/25/17 06:59 18:59 Intake Total 240 Balance 240 - Medications Medications: Current Medications Acetaminophen (Tylenol 325mg Tab) 650 mg PO Q6 PRN PRN Reason: Pain, moderate (4-7) Last Admin: 09/23/17 09:45 Dose: 650 mg Albuterol Sulfate (Albuterol 0.042% Inhal Kathy (1.25mg/3ml) Ud) 1.25 mg INH RTID [facility] Last Admin: 09/25/17 13:39 Dose: 1.25 mg Aspirin (Aspirin Chewable) 81 mg PO DAILY [facility] Last Admin: 09/25/17 10:28 Dose: 81 mg Clopidogrel Bisulfate (Plavix) 75 mg PO DAILY [facility] Last Admin: 09/25/17 10:28 Dose: 75 mg Enoxaparin Sodium (Lovenox) 40 mg SC DAILY [facility] Last Admin: 09/25/17 10:29 Dose: 40 mg Furosemide (Lasix) 20 mg PO DAILY [facility] Last Admin: 09/24/17 10:14 Dose: 20 mg Guaifenesin (Robitussin) 100 mg PO Q4H PRN PRN Reason: Cough Insulin Human Regular (Novolin R) 0 unit SC ACHS [facility] PRN Reason: Protocol Last Admin: 09/25/17 12:22 Dose: Not Given Losartan Potassium (Cozaar) 25 mg PO DAILY [facility] Last Admin: 09/13/17 10:05 Dose: Not Given Nicotine (Nicoderm Cq) 1 patch TD DAILY [facility] Last Admin: 09/25/17 10:28 Dose: 1 patch Rosuvastatin Calcium (Crestor) 20 mg PO HS [facility] Last Admin: 09/24/17 21:47 Dose: 20 mg Sitagliptin Phosphate (Januvia) 100 mg PO DAILY [facility] Last Admin: 09/25/17 10:28 Dose: 100 mg Spironolactone (Aldactone) 12.5 mg PO DAILY [facility] Last Admin: 09/25/17 10:28 Dose: Not Given - Labs Labs: 09/24/17 07:31 09/25/17 08:06 PT 13.0 SECONDS (9.7-12.2) H 09/20/17 06:18 INR 1.2 09/20/17 06:18 APTT 53 SECONDS (21-34) H D 09/15/17 14:21 Assessment and Plan - Assessment and Plan (Free Text) Assessment: 1. 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 CAD: Post [place] management. ASA, Plavix, Statins (B blockers and JEANNE I if tolerated. 3. Hypotension with low Na and Chloride: Gentle IV hydration 4. OOB to ambulate. DVT anf GI prophylaxis Awaiting placement
--- NOTE | 2017-09-25 22:12 | PN ---
SUBJECTIVE: The patient is alert, oriented, afebrile. She is in bed. She is not in acute distress at rest. PHYSICAL EXAMINATION: HEART: Regular. There is no gallop rhythm. LUNGS: Diminished breath sounds over lung bases. Rhonchi decreased. ABDOMEN: Soft. EXTREMITIES: Legs, no edema. LABORATORY DATA: Serum sodium is 134, potassium 4.6, BUN 20, creatinine 0.7. Platelet count is 219. ABG pCO2 35, pO2 60, bicarb 27, hemoglobin oxygen saturation 90%. IMPRESSION: Respiratory insufficiency, cardiac arrhythmias, congestive heart failure, hypertensive cardiovascular disease, diabetes mellitus, status post automatic implantable cardioverter defibrillator insertion, chronic obstructive pulmonary disease. PLAN: To continue with the current management including bronchodilators, vasodilators, and oxygen therapy. Kurtis Hoang MD
--- NOTE | 2017-09-25 23:25 | CP.PCM.PN ---
Subjective - Date & Time of Evaluation Date of Evaluation: 09/25/17 Time of Evaluation: 19:00 - Subjective Subjective: Pt seen and evaluated at bedside, pt still short of breath , have large right sided pleural effusiona nd she is for thoracocentesis Objective - Vital Signs/Intake and Output Vital Signs (last 24 hours): Temp Pulse Resp BP Pulse Ox 98.2 F 72 20 97/64 L 100 09/25/17 15:21 09/25/17 15:21 09/25/17 15:21 09/25/17 15:21 09/25/17 15:21 - Medications Medications: Current Medications Acetaminophen (Tylenol 325mg Tab) 650 mg PO Q6 PRN PRN Reason: Pain, moderate (4-7) Last Admin: 09/23/17 09:45 Dose: 650 mg Albuterol Sulfate (Albuterol 0.042% Inhal Kathy (1.25mg/3ml) Ud) 1.25 mg INH RTID [facility] Last Admin: 09/25/17 20:33 Dose: 1.25 mg Aspirin (Aspirin Chewable) 81 mg PO DAILY [facility] Last Admin: 09/25/17 10:28 Dose: 81 mg Clopidogrel Bisulfate (Plavix) 75 mg PO DAILY [facility] Last Admin: 09/25/17 10:28 Dose: 75 mg Enoxaparin Sodium (Lovenox) 40 mg SC DAILY [facility] Last Admin: 09/25/17 10:29 Dose: 40 mg Furosemide (Lasix) 20 mg PO DAILY [facility] Last Admin: 09/24/17 10:14 Dose: 20 mg Guaifenesin (Robitussin) 100 mg PO Q4H PRN PRN Reason: Cough Insulin Human Regular (Novolin R) 0 unit SC [facility] PRN Reason: Protocol Last Admin: 09/25/17 22:12 Dose: Not Given Losartan Potassium (Cozaar) 25 mg PO DAILY [facility] Last Admin: 09/13/17 10:05 Dose: Not Given Nicotine (Nicoderm Cq) 1 patch TD DAILY [facility] Last Admin: 09/25/17 10:28 Dose: 1 patch Rosuvastatin Calcium (Crestor) 20 mg PO HS [facility] Last Admin: 09/25/17 22:11 Dose: 20 mg Sitagliptin Phosphate (Januvia) 100 mg PO DAILY [facility] Last Admin: 09/25/17 10:28 Dose: 100 mg Spironolactone (Aldactone) 12.5 mg PO DAILY [facility] Last Admin: 09/25/17 10:28 Dose: Not Given - Labs Labs: 09/24/17 07:31 09/25/17 08:06 PT 13.0 SECONDS (9.7-12.2) H 09/20/17 06:18 INR 1.2 09/20/17 06:18 APTT 53 SECONDS (21-34) H D 09/15/17 14:21 - Constitutional Appears: No Acute Distress - Head Exam Head Exam: ATRAUMATIC, NORMAL INSPECTION, NORMOCEPHALIC - Eye Exam Eye Exam: EOMI, Normal appearance, PERRL Pupil Exam: NORMAL ACCOMODATION, PERRL - Respiratory Exam Respiratory Exam: Decreased Breath Sounds, Rales, Rhonchi - Cardiovascular Exam Cardiovascular Exam: REGULAR RHYTHM, +S1, +S2, Murmur - GI/Abdominal Exam GI & Abdominal Exam: Soft, Normal Bowel Sounds. absent: Tenderness Assessment and Plan (1) STEMI (ST elevation myocardial infarction) Status: Resolved (2) Carotid atherosclerosis Status: Acute (3) Dementia Status: Acute (4) Diabetes mellitus type 2 in nonobese Status: Chronic (5) Hypertension Status: Chronic (6) Dilated cardiomyopathy Status: Acute
--- NOTE | 2017-09-26 07:28 | CON ---
HISTORY OF PRESENT ILLNESS: This 77-year-old lady is a longtime smoker with history of diabetes mellitus, with hypertension, with arthritis, now admitted with . She felt dizzy, weak, had vomiting, headache, and she was short of breath, has had cough with scanty sputum. There was no diarrhea or hematemesis. She did not have hemoptysis and there was no history of seizures. She had slight chest discomfort, but did not complain of severe chest pain. SOCIAL HISTORY: She has a history of smoking for many years, does not consume heavy amounts of alcohol. ALLERGIES: THERE IS NO HISTORY OF ALLERGIES. FAMILY HISTORY: She does not have any significant history of illness in the family. REVIEW OF SYSTEMS: As reported above and she does not have history of seizures and there was no history of chronic renal disease, but she had history of diabetes, hypertension, COPD, and arthritis. PHYSICAL EXAMINATION: VITAL SIGNS: She was afebrile with blood pressure 94/62, hemoglobin-oxygen saturation of 95% at rest by line, recumbent in bed at this moment, there is no acute distress. NECK: Neck is supple. There is no lymphadenopathy. HEENT: Unremarkable. There is no thyromegaly. HEART: Regular. There is no gallop rhythm. LUNGS: Diminished breath sounds over lung bases ABDOMEN: Soft. EXTREMITIES: Legs: No edema and no tenderness. Deep tendon reflexes are unremarkable with no leg edema. LABORATORY DATA: Her white count is 7700, hemoglobin 15, platelet count 450, . Sodium 133, potassium 4.9, chloride 99, BUN 16, creatinine 2.6. Chest x-ray shows bilateral pleural effusions . The patient was seen by . IMPRESSION: Respiratory insufficiency, chronic obstructive pulmonary disease, hypertensive cardiovascular disease, cardiac arrhythmia, diabetes mellitus, falls, status post automatic implantable cardioverter-defibrillator insertion, congestive heart failure, pleural effusion. PLAN: Agree with current management. Recommend oxygen therapy, bronchodilators, vasodilators, radiology followup, Follow up with chest x-ray, deep venous thrombosis prophylaxis. Kurtis Hoang MD cc: [facility] # [id number]
[2017-09-26] MEDS: Albuterol 0.042% Inhal Sol (1.25 mg/3 mL) UD INH SCH ×3 (07:47→20:01)
[2017-09-26] MEDS: (Novolin R) Insulin Human Regular 100 units/ml vial SC SCH ×4 (08:20→21:51)
[2017-09-26] MEDS: Enoxaparin 40 mg Syringe SC SCH (10:32)
--- NOTE | 2017-09-26 11:21 | CP.PCM.PN ---
Subjective - Date & Time of Evaluation Date of Evaluation: 09/26/17 Time of Evaluation: 18:00 - Subjective Subjective: PT SEEN AND EXAMINED AT BEDSIDE Objective - Vital Signs/Intake and Output Vital Signs (last 24 hours): Temp Pulse Resp BP Pulse Ox 97.4 F L 74 18 104/54 L 98 09/26/17 08:30 09/26/17 08:30 09/26/17 08:30 09/26/17 10:30 09/26/17 08:30 Intake and Output: 09/26/17 09/26/17 06:59 18:59 Intake Total 240 Balance 240 - Medications Medications: Current Medications Acetaminophen (Tylenol 325mg Tab) 650 mg PO Q6 PRN PRN Reason: Pain, moderate (4-7) Last Admin: 09/23/17 09:45 Dose: 650 mg Albuterol Sulfate (Albuterol 0.042% Inhal Kathy (1.25mg/3ml) Ud) 1.25 mg INH RTID [facility] Last Admin: 09/26/17 07:48 Dose: 1.25 mg Aspirin (Aspirin Chewable) 81 mg PO DAILY [facility] Last Admin: 09/26/17 10:30 Dose: 81 mg Clopidogrel Bisulfate (Plavix) 75 mg PO DAILY [facility] Last Admin: 09/26/17 10:31 Dose: 75 mg Enoxaparin Sodium (Lovenox) 40 mg SC DAILY [facility] Last Admin: 09/26/17 10:32 Dose: 40 mg Furosemide (Lasix) 20 mg PO DAILY [facility] Last Admin: 09/26/17 10:30 Dose: 20 mg Guaifenesin (Robitussin) 100 mg PO Q4H PRN PRN Reason: Cough Insulin Human Regular (Novolin R) 0 unit SC ACHS [facility] PRN Reason: Protocol Last Admin: 09/26/17 08:20 Dose: 1 unit Losartan Potassium (Cozaar) 25 mg PO DAILY [facility] Last Admin: 09/13/17 10:05 Dose: Not Given Nicotine (Nicoderm Cq) 1 patch TD DAILY [facility] Last Admin: 09/26/17 10:31 Dose: 1 patch Rosuvastatin Calcium (Crestor) 20 mg PO HS [facility] Last Admin: 09/25/17 22:11 Dose: 20 mg Sitagliptin Phosphate (Januvia) 100 mg PO DAILY [facility] Last Admin: 09/26/17 10:31 Dose: 100 mg Spironolactone (Aldactone) 12.5 mg PO DAILY [facility] Last Admin: 09/26/17 10:32 Dose: 12.5 mg - Labs Labs: 09/24/17 07:31 09/25/17 08:06 PT 13.0 SECONDS (9.7-12.2) H 09/20/17 06:18 INR 1.2 09/20/17 06:18 APTT 53 SECONDS (21-34) H D 09/15/17 14:21 Assessment and Plan (1) STEMI (ST elevation myocardial infarction) Status: Resolved (2) Carotid atherosclerosis Status: Acute (3) Dementia Status: Acute (4) Diabetes mellitus type 2 in nonobese Status: Chronic (5) Hypertension Status: Chronic (6) Dilated cardiomyopathy Status: Acute
--- NOTE | 2017-09-26 23:17 | CP.PCM.PN ---
Subjective - Date & Time of Evaluation Date of Evaluation: 09/26/17 Time of Evaluation: 11:25 - Subjective Subjective: Patient seen and evaluated Stable Awaiting placement Objective - Vital Signs/Intake and Output Vital Signs (last 24 hours): Temp Pulse Resp BP Pulse Ox 97.7 F 76 20 110/69 97 09/26/17 15:00 09/26/17 15:00 09/26/17 15:00 09/26/17 17:59 09/26/17 15:00 - Medications Medications: Current Medications Acetaminophen (Tylenol 325mg Tab) 650 mg PO Q6 PRN PRN Reason: Pain, moderate (4-7) Last Admin: 09/23/17 09:45 Dose: 650 mg Albuterol Sulfate (Albuterol 0.042% Inhal Kathy (1.25mg/3ml) Ud) 1.25 mg INH RTID [facility] Last Admin: 09/26/17 20:01 Dose: 1.25 mg Aspirin (Aspirin Chewable) 81 mg PO DAILY [facility] Last Admin: 09/26/17 10:30 Dose: 81 mg Clopidogrel Bisulfate (Plavix) 75 mg PO DAILY [facility] Last Admin: 09/26/17 10:31 Dose: 75 mg Donepezil HCl (Aricept) 5 mg PO HS [facility] Last Admin: 09/26/17 21:50 Dose: 5 mg Enoxaparin Sodium (Lovenox) 40 mg SC DAILY [facility] Last Admin: 09/26/17 10:32 Dose: 40 mg Furosemide (Lasix) 40 mg IVP DAILY [facility] Last Admin: 09/26/17 17:59 Dose: 40 mg Guaifenesin (Robitussin) 100 mg PO Q4H PRN PRN Reason: Cough Insulin Human Regular (Novolin R) 0 unit SC [facility] PRN Reason: Protocol Last Admin: 09/26/17 21:51 Dose: Not Given Losartan Potassium (Cozaar) 25 mg PO DAILY [facility] Last Admin: 09/13/17 10:05 Dose: Not Given Nicotine (Nicoderm Cq) 1 patch TD DAILY [facility] Last Admin: 09/26/17 10:31 Dose: 1 patch Rosuvastatin Calcium (Crestor) 20 mg PO HS [facility] Last Admin: 09/26/17 21:50 Dose: 20 mg Sitagliptin Phosphate (Januvia) 100 mg PO DAILY [facility] Last Admin: 09/26/17 10:31 Dose: 100 mg Spironolactone (Aldactone) 12.5 mg PO DAILY [facility] Last Admin: 09/26/17 10:32 Dose: 12.5 mg - Labs Labs: 09/24/17 07:31 09/25/17 08:06 PT 13.0 SECONDS (9.7-12.2) H 09/20/17 06:18 INR 1.2 09/20/17 06:18 APTT 53 SECONDS (21-34) H D 09/15/17 14:21
--- NOTE | 2017-09-27 07:06 | CP.PCM.CON ---
History of Present Illness - History of Present Illness History of Present Illness: CONSULT DICTATED SDAT/VD NEURO STABLE CONTINUE THE PRESENT MANAGEMENT BLOOD/EEG/CAT Past Patient History - Infectious Disease Hx of Infectious Diseases: None - Past Medical History & Family History Past Medical History?: Yes - Past Social History Smoking Status: Never Smoked - CARDIAC Hx Hypercholesterolemia: Yes Hx Hypertension: Yes - PULMONARY Hx Respiratory Disorders: No - NEUROLOGICAL Hx Dementia: Yes (PER FAMILY) - HEENT Hx HEENT Problems: No - RENAL Hx Chronic Kidney Disease: No - ENDOCRINE/METABOLIC Hx Diabetes Mellitus Type 2: Yes - HEMATOLOGICAL/ONCOLOGICAL Hx Blood Disorders: Yes Hx Cancer: Yes (BREAST) Other/Comment: LEFT MASTECTOMY - INTEGUMENTARY Hx Dermatological Problems: No - MUSCULOSKELETAL/RHEUMATOLOGICAL Hx Arthritis: Yes - GASTROINTESTINAL Hx Gastrointestinal Disorders: No - GENITOURINARY/GYNECOLOGICAL Hx Genitourinary Disorders: No - PSYCHIATRIC Hx Substance Use: No - SURGICAL HISTORY Hx Surgeries: Yes Hx Section: Yes Hx Mastectomy: Yes (LEFT) - ANESTHESIA Hx Anesthesia: No Meds Allergies/Adverse Reactions: Allergies Allergy/AdvReac Type Severity Reaction Status Date / Time No Known Allergies Allergy Verified 11/14/16 12:17 - Medications Medications: Current Medications Acetaminophen (Tylenol 325mg Tab) 650 mg PO Q6 PRN PRN Reason: Pain, moderate (4-7) Last Admin: 09/23/17 09:45 Dose: 650 mg Albuterol Sulfate (Albuterol 0.042% Inhal Kathy (1.25mg/3ml) Ud) 1.25 mg INH RTID [facility] Last Admin: 09/26/17 20:01 Dose: 1.25 mg Aspirin (Aspirin Chewable) 81 mg PO DAILY [facility] Last Admin: 09/26/17 10:30 Dose: 81 mg Clopidogrel Bisulfate (Plavix) 75 mg PO DAILY [facility] Last Admin: 09/26/17 10:31 Dose: 75 mg Donepezil HCl (Aricept) 5 mg PO HS [facility] Last Admin: 09/26/17 21:50 Dose: 5 mg Enoxaparin Sodium (Lovenox) 40 mg SC DAILY [facility] Last Admin: 09/26/17 10:32 Dose: 40 mg Furosemide (Lasix) 40 mg IVP DAILY [facility] Last Admin: 09/26/17 17:59 Dose: 40 mg Guaifenesin (Robitussin) 100 mg PO Q4H PRN PRN Reason: Cough Insulin Human Regular (Novolin R) 0 unit SC ACHS [facility] PRN Reason: Protocol Last Admin: 09/26/17 21:51 Dose: Not Given Losartan Potassium (Cozaar) 25 mg PO DAILY [facility] Last Admin: 09/13/17 10:05 Dose: Not Given Nicotine (Nicoderm Cq) 1 patch TD DAILY [facility] Last Admin: 09/26/17 10:31 Dose: 1 patch Rosuvastatin Calcium (Crestor) 20 mg PO HS [facility] Last Admin: 09/26/17 21:50 Dose: 20 mg Sitagliptin Phosphate (Januvia) 100 mg PO DAILY [facility] Last Admin: 09/26/17 10:31 Dose: 100 mg Spironolactone (Aldactone) 12.5 mg PO DAILY [facility] Last Admin: 09/26/17 10:32 Dose: 12.5 mg Results - Vital Signs Recent Vital Signs: Last Vital Signs Temp 98 F 09/26/17 23:00 Pulse 77 09/27/17 04:26 Resp 20 09/26/17 23:00 BP 100/65 09/26/17 23:00 Pulse Ox 97 09/26/17 23:00 - Labs Result Diagrams: 09/24/17 07:31 09/25/17 08:06 Labs: Laboratory Results - last 24 hr 09/26/17 09/26/17 09/26/17 06:25 11:36 16:22 POC Glucose (mg/dL) 154 H 160 H 149 H 09/26/17 09/27/17 21:08 06:24 POC Glucose (mg/dL) 219 H 133 H
--- NOTE | 2017-09-27 07:32 | PN ---
SUBJECTIVE: The patient is alert and oriented. PHYSICAL EXAMINATION: VITAL SIGNS: Afebrile with blood pressure 104/54, pulse 74, respirations 18, hemoglobin oxygen saturation of 98%. GENERAL: The patient is not in acute distress and she does not complain of fainting or dizziness at this time. HEART: Regular. There is no gallop rhythm. LUNGS: Diminished breath sounds. Rhonchi decreased. ABDOMEN: Soft. EXTREMITIES: Legs, no edema. Her blood sugar is 160. IMPRESSION: Respiratory insufficiency, hypertensive cardiovascular disease, cardiac arrhythmias, congestive heart failure, diabetes mellitus. gastrointestinal reflux disorder, gastroesophageal reflux with dyspepsia, diabetes mellitus. PLAN: To continue with the current management and follow up with Cardiology as outpatient. Kurtis Hoang MD cc:
[2017-09-27] MEDS: Albuterol 0.042% Inhal Sol (1.25 mg/3 mL) UD INH SCH ×3 (07:45→20:15)
[2017-09-27] MEDS: (Novolin R) Insulin Human Regular 100 units/ml vial SC SCH ×3 (08:11→21:16)
[2017-09-27 08:45] LABS: BLOOD UREA NITROGEN 19 mg/dL (7-17); CALCIUM 8.5 mg/dl (8.6-10.4); GFR AFRICAN-AMERICAN > 60; GFR NON-AFRICAN AMERICAN > 60; HDL CHOLESTEROL 31 mg/dL (30-70)
[2017-09-27 08:57] LABS: LDL CHOLESTEROL 34 mg/dL (0-129)
[2017-09-27 09:05] LABS: FREE T4 0.84 ng/dL (0.78-2.19)
[2017-09-27 09:50] LABS: FOLATE 16.2 ng/mL
--- NOTE | 2017-09-27 10:11 | CON ---
DATE: 09/27/2017. TIME OF EVALUATION: 6:30 a.m. REASON FOR THE CONSULTATION: Change in mental status and dementia. CHIEF COMPLAINT: The patient was admitted with acute chest pain, been worked up here and being transferred to [facility] and she did have a defibrillator been transferred back here. The patient has been waiting for her placement, during the hospitalization, the patient found to be demented and from neurological point of view, I was called in to evaluate her for further management. HISTORY OF PRESENT ILLNESS: Floresita Kemp is 77-year-old Colombian speaking Persian female been admitted with acute coronary syndrome. The patient has undergone cardiac workup, cardiac cath and being transferred to a different facility, had a defibrillator and being transfer back here for further management. During the hospitalization, the patient's had no witnessed or documented fall. No head trauma. No loss of consciousness. No involuntary movements. The patient has been awake, communicable, eating on her own, moving all four extremities. PAST MEDICAL HISTORY: Hypertension, dementia, [id number] diabetes mellitus. PERSONAL HISTORY: Denies smoking or alcohol use. ALLERGIES: NO KNOWN ALLERGIES. REVIEW OF SYSTEMS: A 12-point system been reviewed from neuro dementia. MEDICATIONS: Albuterol, Aldactone, Aricept, Cozaar, Crestor, Januvia, Lasix, Lovenox, Novolin, Plavix and Tylenol. PHYSICAL EXAMINATION: VITAL SIGNS: Blood pressure 100/65, mean artery pressure of 76, respiratory rate 18, temperature 98 degrees Fahrenheit with pulse rate of 77. NECK: Supple. No carotid bruits. HEART: Sounds regular. CHEST: Fair air entry. EXTREMITIES: No edema in legs. NEUROLOGIC: Mental status examination, she is awake, alert and oriented to person, place and time. Speech is clear. She admits she is depressed. Sleep is fragmented. Cranial nerve examination, visual field respond to visual threat. Pupils reactive to light. Extraocular movement decreased in all direction. No facial sensory deficit. No facial asymmetry. Hearing is normal. Tongue is midline. Good gag. Motor examination, she could able to lift both upper extremities against the gravity. No sensory tremor. No asterixis. Tone is normal in both upper and lower extremities. Deep tendon reflexes are absent. Plantars are downgoing. 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 Coordination, [id number] test is intact. Gait deferred at this time. LABORATORY DATA: Her workup, WBC 9.0, hemoglobin 10.6, hematocrit 31.6, platelet 468. Sodium 132, potassium 5.1, chloride 96, bicarbonate 30, GFR more than 60, glucose 197, calcium 8.6. CONCLUSION: Ms. Floresita Kemp been presenting with; 1. Bilateral cerebral dysfunction as per the documentation. Currently the patient seems to be depressed. No long track signs are present. 2. 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 RECOMMENDATIONS: 1. Continue antiplatelets from cardiac point of view as well as stroke point of view. 2. EEG to document any focal slowing versus paroxysmal activities. 3. Dementia workup as per the order being requested. 4. The patient should have a CT of the head to assess her baseline brain structures. 5. Continue Aricept for her dementia. The patient will be followed closely with you. Dewayne Valladares MD
[2017-09-27] MEDS: Enoxaparin 40 mg Syringe SC SCH (11:04)
--- NOTE | 2017-09-27 11:30 | CT ---
PROCEDURE: CT HEAD WITHOUT CONTRAST. HISTORY: ? dementia / stroke /atrophy COMPARISON: MRI brain without contrast from 10/04/2016. TECHNIQUE: Axial computed tomography images were obtained through the head/brain without intravenous contrast. Radiation dose: Total exam DLP = 672.81 mGy-cm. This CT exam was performed using one or more of the following dose reduction techniques: Automated exposure control, adjustment of the mA and/or kV according to patient size, and/or use of iterative reconstruction technique. FINDINGS: HEMORRHAGE: No intracranial hemorrhage. BRAIN: There are mild chronic microangiopathic changes. There is no mass, mass effect or abnormal extra-axial fluid collection.There are coarse atherosclerotic calcifications in the cavernous carotid arteries. There are symmetric senile mild basal ganglia calcifications. VENTRICLES: There is mild age-related global parenchymal volume loss and proportionate enlargement of the ventricles and cortical sulci CALVARIUM: The skull base and calvarium are normal. 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 MASTOID AIR CELLS: Predominantly clear. No inflammatory changes. OTHER FINDINGS: None. IMPRESSION: No acute intracranial abnormality. Mild chronic microangiopathic change. And mild age-related global parenchymal volume loss.
[2017-09-27] MEDS ORDERED: Alum-Mag Hydrox-Simethicone Susp (30 mL) PO STA (12:30)
--- NOTE | 2017-09-27 12:57 | RAD ---
HISTORY: COMPARISON: 09/23/2017 TECHNIQUE: Chest PA and lateral FINDINGS: LINES AND TUBES: None. LUNG AND PLEURA: Again seen is severe pulmonary venous congestion. There are moderate pleural effusions. HEART AND MEDIASTINUM: The heart is not enlarged. There is stable position of left-sided AICD. The hilar and mediastinal contours are within normal limits. SKELETAL STRUCTURES: The bony structures are within normal limits for the patient's age. VISUALIZED UPPER ABDOMEN: Normal. OTHER FINDINGS: None. IMPRESSION: No change in the appearance of known congestive heart failure.
--- NOTE | 2017-09-27 18:09 | PN ---
SUBJECTIVE: The patient is alert, oriented, afebrile. PHYSICAL EXAMINATION: VITAL SIGNS: Blood pressure is , respirations 16. GENERAL: She is not in acute distress. HEART: Regular. LUNGS: Diminished breath sounds over the lung bases. Rhonchi . ABDOMEN: Soft. EXTREMITIES: Legs, no edema. Her serum sodium is 147, potassium 4.4, chloride 89, carbon dioxide 30, BUN 19, creatinine 0.7. Blood sugar is 154. TSH was 6.91. Her chest x-ray shows bilateral lower zone pleural effusion. IMPRESSION: Respiratory insufficiency, hypertensive cardiovascular disease, cardiac arrhythmias, congestive heart failure, diabetes mellitus. She is status post automatic implantable cardioverter-defibrillator insertion for cardiac arrhythmias. PLAN: Continue with the current management and cardiology followup. To her treatment, we will add spironolactone in small doses. Kurtis Hoang MD
--- NOTE | 2017-09-27 23:07 | CP.PCM.PN ---
Subjective - Date & Time of Evaluation Date of Evaluation: 09/27/17 Time of Evaluation: 18:35 - Subjective Subjective: PT SEEN AND EXAMINED AT BEDSIDE Objective - Vital Signs/Intake and Output Vital Signs (last 24 hours): Temp Pulse Resp BP Pulse Ox 97.4 F L 82 20 111/65 97 09/27/17 16:00 09/27/17 16:00 09/27/17 16:00 09/27/17 16:00 09/27/17 16:00 - Medications Medications: Current Medications Acetaminophen (Tylenol 325mg Tab) 650 mg PO Q6 PRN PRN Reason: Pain, moderate (4-7) Last Admin: 09/23/17 09:45 Dose: 650 mg Albuterol Sulfate (Albuterol 0.042% Inhal Kathy (1.25mg/3ml) Ud) 1.25 mg INH RTID [facility] Last Admin: 09/27/17 20:15 Dose: 1.25 mg Aspirin (Aspirin Chewable) 81 mg PO DAILY [facility] Last Admin: 09/27/17 11:02 Dose: 81 mg Clopidogrel Bisulfate (Plavix) 75 mg PO DAILY [facility] Last Admin: 09/27/17 11:03 Dose: 75 mg Donepezil HCl (Aricept) 5 mg PO HS [facility] Last Admin: 09/27/17 21:15 Dose: 5 mg Enoxaparin Sodium (Lovenox) 40 mg SC DAILY [facility] Last Admin: 09/27/17 11:04 Dose: 40 mg Furosemide (Lasix) 40 mg IVP DAILY [facility] Last Admin: 09/27/17 11:03 Dose: 40 mg Guaifenesin (Robitussin) 100 mg PO Q4H PRN PRN Reason: Cough Insulin Human Regular (Novolin R) [address] [facility] PRN Reason: Protocol Last Admin: 09/27/17 21:16 Dose: Not Given Losartan Potassium (Cozaar) 25 mg PO DAILY [facility] Last Admin: 09/13/17 10:05 Dose: Not Given Nicotine (Nicoderm Cq) 1 patch TD DAILY [facility] Last Admin: 09/27/17 11:04 Dose: 1 patch Rosuvastatin Calcium (Crestor) 20 mg PO HS [facility] Last Admin: 09/27/17 21:16 Dose: 20 mg Sitagliptin Phosphate (Januvia) 100 mg PO DAILY [facility] Last Admin: 09/27/17 11:03 Dose: 100 mg Spironolactone (Aldactone) 12.5 mg PO DAILY [facility] Last Admin: 09/27/17 11:04 Dose: 12.5 mg - Labs Labs: 09/24/17 07:31 09/27/17 08:21 PT 13.0 SECONDS (9.7-12.2) H 09/20/17 06:18 INR 1.2 09/20/17 06:18 APTT 53 SECONDS (21-34) H D 09/15/17 14:21 Assessment and Plan (1) STEMI (ST elevation myocardial infarction) Status: Resolved (2) Carotid atherosclerosis Status: Acute (3) Dementia Status: Acute (4) Diabetes mellitus type 2 in nonobese Status: Chronic (5) Hypertension Status: Chronic (6) Dilated cardiomyopathy Status: Acute
--- NOTE | 2017-09-27 23:09 | CP.PCM.PN ---
Subjective - Date & Time of Evaluation Date of Evaluation: 09/27/17 Time of Evaluation: 15:20 - Subjective Subjective: Patient seen and evaluated Denies chest pain and dyspnea Awaiting placement in Rehab Objective - Vital Signs/Intake and Output Vital Signs (last 24 hours): Temp Pulse Resp BP Pulse Ox 97.4 F L 82 20 111/65 97 09/27/17 16:00 09/27/17 16:00 09/27/17 16:00 09/27/17 16:00 09/27/17 16:00 - Medications Medications: Current Medications Acetaminophen (Tylenol 325mg Tab) 650 mg PO Q6 PRN PRN Reason: Pain, moderate (4-7) Last Admin: 09/23/17 09:45 Dose: 650 mg Albuterol Sulfate (Albuterol 0.042% Inhal Kathy (1.25mg/3ml) Ud) 1.25 mg INH RTID [facility] Last Admin: 09/27/17 20:15 Dose: 1.25 mg Aspirin (Aspirin Chewable) 81 mg PO DAILY [facility] Last Admin: 09/27/17 11:02 Dose: 81 mg Clopidogrel Bisulfate (Plavix) 75 mg PO DAILY [facility] Last Admin: 09/27/17 11:03 Dose: 75 mg Donepezil HCl (Aricept) 5 mg PO HS [facility] Last Admin: 09/27/17 21:15 Dose: 5 mg Enoxaparin Sodium (Lovenox) 40 mg SC DAILY [facility] Last Admin: 09/27/17 11:04 Dose: 40 mg Furosemide (Lasix) 40 mg IVP DAILY [facility] Last Admin: 09/27/17 11:03 Dose: 40 mg Guaifenesin (Robitussin) 100 mg PO Q4H PRN PRN Reason: Cough Insulin Human Regular (Novolin R) 0 unit SC ACHS [facility] PRN Reason: Protocol Last Admin: 09/27/17 21:16 Dose: Not Given Losartan Potassium (Cozaar) 25 mg PO DAILY [facility] Last Admin: 09/13/17 10:05 Dose: Not Given Nicotine (Nicoderm Cq) 1 patch TD DAILY [facility] Last Admin: 09/27/17 11:04 Dose: 1 patch Rosuvastatin Calcium (Crestor) 20 mg PO HS [facility] Last Admin: 09/27/17 21:16 Dose: 20 mg Sitagliptin Phosphate (Januvia) 100 mg PO DAILY [facility] Last Admin: 09/27/17 11:03 Dose: 100 mg Spironolactone (Aldactone) 12.5 mg PO DAILY [facility] Last Admin: 09/27/17 11:04 Dose: 12.5 mg - Labs Labs: 09/24/17 07:31 09/27/17 08:21 PT 13.0 SECONDS (9.7-12.2) H 09/20/17 06:18 INR 1.2 09/20/17 06:18 APTT 53 SECONDS (21-34) H D 09/15/17 14:21
[2017-09-28] MEDS: Albuterol 0.042% Inhal Sol (1.25 mg/3 mL) UD INH SCH ×2 (07:39→13:23)
[2017-09-28 07:40] LABS: BLOOD UREA NITROGEN 21 mg/dL (7-17); CALCIUM 8.4 mg/dl (8.6-10.4); GFR AFRICAN-AMERICAN > 60; GFR NON-AFRICAN AMERICAN > 60
[2017-09-28] MEDS: Enoxaparin 40 mg Syringe SC SCH (10:28)
--- NOTE | 2017-09-28 18:55 | PN ---
SUBJECTIVE: The patient is alert and oriented. PHYSICAL EXAMINATION: VITAL SIGNS: Afebrile. Her pulse rate is 70 per minute, blood pressure 108/60. She is not in acute distress at rest. HEART: Regular. There is no gallop rhythm. LUNGS: Diminished breath sounds over the lung bases. Rhonchi decreased. ABDOMEN: Soft. EXTREMITIES: There is no leg edema. LABORATORY DATA: Chest x-ray shows bilateral pleural effusion and implanted AICD for cardiac arrhythmias. IMPRESSION: Respiratory insufficiency, hypertensive cardiovascular disease, cardiac arrhythmias, congestive heart failure, diabetes mellitus, and ____. PLAN: To continue with the current management including vasodilators, bronchodilators, and cardiology followup. Kurtis Hoang MD
[2017-09-28] MEDS: (Novolin R) Insulin Human Regular 100 units/ml vial SC SCH ×2 (20:20→21:52)
--- NOTE | 2017-09-28 23:41 | CP.PCM.PN ---
Subjective - Date & Time of Evaluation Date of Evaluation: 09/28/17 Time of Evaluation: 19:00 - Subjective Subjective: Pt is seen and examined, still confused, less cough , less short of breath, she has no chest pain Objective - Vital Signs/Intake and Output Vital Signs (last 24 hours): Temp Pulse Resp BP Pulse Ox 97.4 F L 75 18 96/61 L 95 09/28/17 15:20 09/28/17 15:45 09/28/17 15:20 09/28/17 15:20 09/28/17 15:20 - Medications Medications: Current Medications Acetaminophen (Tylenol 325mg Tab) 650 mg PO Q6 PRN PRN Reason: Pain, moderate (4-7) Last Admin: 09/23/17 09:45 Dose: 650 mg Aspirin (Aspirin Chewable) 81 mg PO DAILY [facility] Last Admin: 09/28/17 10:27 Dose: 81 mg Clopidogrel Bisulfate (Plavix) 75 mg PO DAILY [facility] Last Admin: 09/28/17 10:27 Dose: 75 mg Donepezil HCl (Aricept) 10 mg PO HS [facility] Last Admin: 09/28/17 21:51 Dose: 10 mg Enoxaparin Sodium (Lovenox) 40 mg SC DAILY [facility] Last Admin: 09/28/17 10:28 Dose: 40 mg Furosemide (Lasix) 40 mg IVP DAILY [facility] Last Admin: 09/28/17 10:28 Dose: Not Given Guaifenesin (Robitussin) 100 mg PO Q4H PRN PRN Reason: Cough Insulin Human Regular (Novolin R) 0 unit SC ACHS [facility] PRN Reason: Protocol Last Admin: 09/28/17 21:52 Dose: Not Given Losartan Potassium (Cozaar) 25 mg PO DAILY [facility] Last Admin: 09/13/17 10:05 Dose: Not Given Nicotine (Nicoderm Cq) 1 patch TD DAILY [facility] Last Admin: 09/28/17 10:30 Dose: 1 patch Rosuvastatin Calcium (Crestor) 20 mg PO HS [facility] Last Admin: 09/28/17 21:52 Dose: 20 mg Sitagliptin Phosphate (Januvia) 100 mg PO DAILY [facility] Last Admin: 09/28/17 10:27 Dose: 100 mg Spironolactone (Aldactone) 12.5 mg PO DAILY [facility] Last Admin: 09/28/17 10:29 Dose: 12.5 mg - Labs Labs: 09/24/17 07:31 09/28/17 07:19 PT 13.0 SECONDS (9.7-12.2) H 09/20/17 06:18 INR 1.2 09/20/17 06:18 APTT 53 SECONDS (21-34) H D 09/15/17 14:21 - Constitutional Appears: No Acute Distress - Head Exam Head Exam: ATRAUMATIC, NORMAL INSPECTION, NORMOCEPHALIC - Eye Exam Eye Exam: EOMI, Normal appearance, PERRL Pupil Exam: NORMAL ACCOMODATION, PERRL - Cardiovascular Exam Cardiovascular Exam: REGULAR RHYTHM, +S1, +S2. absent: Murmur - GI/Abdominal Exam GI & Abdominal Exam: Soft, Normal Bowel Sounds. absent: Tenderness - Rectal Exam Rectal Exam: Deferred Assessment and Plan (1) STEMI (ST elevation myocardial infarction) Status: Resolved (2) Carotid atherosclerosis Status: Acute (3) Dementia Status: Acute (4) Diabetes mellitus type 2 in nonobese Status: Chronic (5) Hypertension Status: Chronic (6) Dilated cardiomyopathy Status: Acute
--- NOTE | 2017-09-29 02:56 | EEG ---
DATE: 09/27/2017 This is a 16-channel electroencephalogram of awake and drowsy adult. During the study, photic stimulation was performed. Hyperventilation was not performed. The resting electroencephalogram consists of 30 to 40 microvolt, diffuse high theta mixed with a low alpha activity, seen at the parietal and occipital leads. Anteriorly, fast activity superimposed with 2 to 3 Hz of delta activity seen. Later, alpha activities were well organized in the parietal and occipital leads. Some movement artifacts contaminated the background rhythm. The photic stimulation did not evoke driving response noted at 2 to 20 Hz. IMPRESSION: This is a normal electroencephalogram for her age. There is no electrographic paroxysmal activities or focal slowing noted during the study. Dewyane Valladares MD
--- NOTE | 2017-09-29 07:35 | PN ---
DATE: 09/28/2017. TIME OF EVALUATION: 06:15 a.m. 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 PHYSICAL EXAMINATION: VITAL SIGNS: Blood pressure 108/60, mean arterial pressure of 76, respiratory rate 18, temperature afebrile with pulse rate of 77. NEUROLOGIC: The patient is more awake, alert and oriented. The patient follows commands. Speech is intact. The patient seems to be a little depressed otherwise normal exam. No changes from previous examination. Her electroencephalogram seems to be normal for her age. Her CT of the head which was reviewed by me does not show any acute changes except mild chronic small vessel disease noted. BLOOD WORKUP: Lipids are normal. Vitamin D level 32.1, homocysteine 12.2, TSH 6.91, RPR nonreactive. PLAN: At this point, the patient can continue cholinesterase inhibitors, Aricept which can be increased to 10 mg and memantine can be added down the road when she is medically stable. From neurological point of view, she does not need any further workup. ADDENDUM: Her thyroid functions are hypoactive, consider to supplement her thyroids. Dewayne Valladares MD [email or web address]
[2017-09-29] MEDS: (Novolin R) Insulin Human Regular 100 units/ml vial SC SCH ×4 (08:10→22:30)
[2017-09-29] MEDS: Enoxaparin 40 mg Syringe SC SCH (10:51)
[2017-09-29] MEDS: Albuterol 0.042% Inhal Sol (1.25 mg/3 mL) UD INH SCH ×2 (14:17→20:23)
--- NOTE | 2017-09-29 21:10 | CP.PCM.PN ---
Subjective - Date & Time of Evaluation Date of Evaluation: 09/28/17 Time of Evaluation: 19:30 - Subjective Subjective: Patient seen and evaluated Denies chest pain and dyspnea Objective - Vital Signs/Intake and Output Vital Signs (last 24 hours): Temp Pulse Resp BP Pulse Ox 97.7 F 68 20 87/49 L 96 09/29/17 15:28 09/29/17 15:28 09/29/17 15:28 09/29/17 15:28 09/29/17 15:28 - Medications Medications: Current Medications Acetaminophen (Tylenol 325mg Tab) 650 mg PO Q6 PRN PRN Reason: Pain, moderate (4-7) Last Admin: 09/29/17 03:05 Dose: 650 mg Albuterol Sulfate (Albuterol 0.042% Inhal Kathy (1.25mg/3ml) Ud) 1.25 mg INH RQ6 [facility] Last Admin: 09/29/17 20:23 Dose: 1.25 mg Aspirin (Aspirin Chewable) 81 mg PO DAILY [facility] Last Admin: 09/29/17 10:49 Dose: 81 mg Clopidogrel Bisulfate (Plavix) 75 mg PO DAILY [facility] Last Admin: 09/29/17 10:49 Dose: 75 mg Donepezil HCl (Aricept) 10 mg PO HS [facility] Last Admin: 09/28/17 21:51 Dose: 10 mg Enoxaparin Sodium (Lovenox) 40 mg SC DAILY [facility] Last Admin: 09/29/17 10:51 Dose: 40 mg Furosemide (Lasix) 40 mg IVP DAILY [facility] Last Admin: 09/29/17 10:49 Dose: 40 mg Guaifenesin (Robitussin) 100 mg PO Q4H PRN PRN Reason: Cough Insulin Human Regular (Novolin R) 0 unit SC [facility] PRN Reason: Protocol Last Admin: 09/29/17 17:30 Dose: Not Given Losartan Potassium (Cozaar) 25 mg PO DAILY [facility] Last Admin: 09/13/17 10:05 Dose: Not Given Nicotine (Nicoderm Cq) 1 patch TD DAILY [facility] Last Admin: 09/29/17 10:51 Dose: 1 patch Rosuvastatin Calcium (Crestor) 20 mg PO HS [facility] Last Admin: 09/28/17 21:52 Dose: 20 mg Sitagliptin Phosphate (Januvia) 100 mg PO DAILY [facility] Last Admin: 09/29/17 10:51 Dose: 100 mg Spironolactone (Aldactone) 12.5 mg PO DAILY [facility] Last Admin: 09/29/17 10:51 Dose: 12.5 mg - Labs Labs: 09/24/17 07:31 09/28/17 07:19 PT 13.0 SECONDS (9.7-12.2) H 09/20/17 06:18 INR 1.2 09/20/17 06:18 APTT 53 SECONDS (21-34) H D 09/15/17 14:21
--- NOTE | 2017-09-29 22:50 | CP.PCM.PN ---
Subjective - Date & Time of Evaluation Date of Evaluation: 09/29/17 Time of Evaluation: 18:00 - Subjective Subjective: Pt seen and examined at bedside Objective - Vital Signs/Intake and Output Vital Signs (last 24 hours): Temp Pulse Resp BP Pulse Ox 97.7 F 68 20 87/49 L 96 09/29/17 15:28 09/29/17 15:28 09/29/17 15:28 09/29/17 15:28 09/29/17 15:28 - Medications Medications: Current Medications Acetaminophen (Tylenol 325mg Tab) 650 mg PO Q6 PRN PRN Reason: Pain, moderate (4-7) Last Admin: 09/29/17 03:05 Dose: 650 mg Albuterol Sulfate (Albuterol 0.042% Inhal Kathy (1.25mg/3ml) Ud) 1.25 mg INH RQ6 [facility] Last Admin: 09/29/17 20:23 Dose: 1.25 mg Aspirin (Aspirin Chewable) 81 mg PO DAILY [facility] Last Admin: 09/29/17 10:49 Dose: 81 mg Clopidogrel Bisulfate (Plavix) 75 mg PO DAILY [facility] Last Admin: 09/29/17 10:49 Dose: 75 mg Donepezil HCl (Aricept) 10 mg PO HS [facility] Last Admin: 09/29/17 21:55 Dose: 10 mg Enoxaparin Sodium (Lovenox) 40 mg SC DAILY [facility] Last Admin: 09/29/17 10:51 Dose: 40 mg Furosemide (Lasix) 40 mg IVP DAILY [facility] Last Admin: 09/29/17 10:49 Dose: 40 mg Guaifenesin (Robitussin) 100 mg PO Q4H PRN PRN Reason: Cough Insulin Human Regular (Novolin R) 0 unit SC ACHS [facility] PRN Reason: Protocol Last Admin: 09/29/17 17:30 Dose: Not Given Losartan Potassium (Cozaar) 25 mg PO DAILY [facility] Last Admin: 09/13/17 10:05 Dose: Not Given Nicotine (Nicoderm Cq) 1 patch TD DAILY [facility] Last Admin: 09/29/17 10:51 Dose: 1 patch Rosuvastatin Calcium (Crestor) 20 mg PO HS [facility] Last Admin: 09/29/17 21:55 Dose: 20 mg Sitagliptin Phosphate (Januvia) 100 mg PO DAILY [facility] Last Admin: 09/29/17 10:51 Dose: 100 mg Spironolactone (Aldactone) 12.5 mg PO DAILY [facility] Last Admin: 09/29/17 10:51 Dose: 12.5 mg - Labs Labs: 09/24/17 07:31 09/28/17 07:19 PT 13.0 SECONDS (9.7-12.2) H 09/20/17 06:18 INR 1.2 09/20/17 06:18 APTT 53 SECONDS (21-34) H D 09/15/17 14:21 Assessment and Plan (1) STEMI (ST elevation myocardial infarction) Status: Resolved (2) Carotid atherosclerosis Status: Acute (3) Dementia Status: Acute (4) Diabetes mellitus type 2 in nonobese Status: Chronic (5) Hypertension Status: Chronic (6) Dilated cardiomyopathy Status: Acute
[2017-09-30] MEDS: Albuterol 0.042% Inhal Sol (1.25 mg/3 mL) UD INH SCH ×4 (01:12→20:07)
[2017-09-30] MEDS: (Novolin R) Insulin Human Regular 100 units/ml vial SC SCH ×5 (08:30→21:31)
[2017-09-30] MEDS: Enoxaparin 40 mg Syringe SC SCH (10:41)
--- NOTE | 2017-09-30 15:58 | RAD ---
HISTORY: CHF COMPARISON: Comparison chest dated 09/27/2017 FINDINGS: LUNGS: Mild central pulmonary vascular congestive changes remain though appears slightly improved. Bilateral lower lobe opacities likely representing some combination of atelectasis/ infiltrate and moderate-sized bilateral effusions. PLEURA: No significant pleural effusion identified, no pneumothorax apparent. CARDIOVASCULAR: Heart size difficult to assess due to silhouetting both cardiac borders. No change single lead pacemaker/ defibrillator. OSSEOUS STRUCTURES: No significant abnormalities. VISUALIZED UPPER ABDOMEN: Normal. OTHER FINDINGS: None. IMPRESSION: Mild pulmonary vascular congestion slightly improved. Bilateral lower lobe opacities likely representing some combination of atelectasis/infiltrate and moderate-sized bilateral effusions
--- NOTE | 2017-09-30 16:00 | CP.PCM.PN ---
Subjective - Date & Time of Evaluation Date of Evaluation: 09/30/17 Time of Evaluation: 15:55 - Subjective Subjective: PT SEEN THIS AFTERNOON BY DR. ALVAREZ DURING ROUNDS. PT COMPLAINED OF DIZZINESS. ORTHOSTATIC VS DONE AND DISCUSSED WITH DR. ALVAREZ, HOWEVER, PT REFUSED TO DO A STANDING BP 2/2 DIZZINESS. PER NURSING CP SITTING IN PT'S ROOM PT AMBULATES TO THE BATHROOM WITH ASSISTANCE. PT IS DEMENTED BUT VERBALIZED UNDERSTANDING OF NEED FOR BP. EVEN AFTER EXPLAINING IT SHE REFUSES. DR. ALVAREZ MADE AWARE. STAT MECLIZINE TO BE GIVEN BY RN. NEURO CHECK GENERALLY INTACT ASIDE FROM CONFUSION WHICH IS NOT A NEW FINDING FOR THIS PT. FOR BEDREST TODAY. LASIX TO BE HELD UNTIL TOMORROW PER DR. ALVAREZ. PENDING STAT EKG PER DR. ALVAREZ'S REQUEST. NO FURTHER ORDERS AT THIS TIME. Objective - Vital Signs/Intake and Output Vital Signs (last 24 hours): Temp Pulse Resp BP Pulse Ox 97.7 F 78 20 106/62 96 09/30/17 08:00 09/30/17 09:23 09/30/17 08:00 09/30/17 10:42 09/30/17 08:00 Intake and Output: 09/30/17 09/30/17 06:59 18:59 Intake Total 200 120 Balance 200 120 - Medications Medications: Current Medications Acetaminophen (Tylenol 325mg Tab) 650 mg PO Q6 PRN PRN Reason: Pain, moderate (4-7) Last Admin: 09/29/17 03:05 Dose: 650 mg Albuterol Sulfate (Albuterol 0.042% Inhal Kathy (1.25mg/3ml) Ud) 1.25 mg INH RQ6 [facility] Last Admin: 09/30/17 14:10 Dose: 1.25 mg Aspirin (Aspirin Chewable) 81 mg PO DAILY [facility] Last Admin: 09/30/17 10:42 Dose: 81 mg Clopidogrel Bisulfate (Plavix) 75 mg PO DAILY [facility] Last Admin: 09/30/17 10:41 Dose: 75 mg Donepezil HCl (Aricept) 10 mg PO HS [facility] Last Admin: 09/29/17 21:55 Dose: 10 mg Enoxaparin Sodium (Lovenox) 40 mg SC DAILY [facility] Last Admin: 09/30/17 10:41 Dose: 40 mg Furosemide (Lasix) 40 mg IVP DAILY [facility] Last Admin: 09/30/17 10:42 Dose: 40 mg Guaifenesin (Robitussin) 100 mg PO Q4H PRN PRN Reason: Cough Insulin Human Regular (Novolin R) 0 unit SC ACHS [facility] PRN Reason: Protocol Last Admin: 09/30/17 11:53 Dose: 1 unit Losartan Potassium (Cozaar) 25 mg PO DAILY [facility] Last Admin: 09/13/17 10:05 Dose: Not Given Nicotine (Nicoderm Cq) 1 patch TD DAILY [facility] Last Admin: 09/30/17 10:42 Dose: 1 patch Rosuvastatin Calcium (Crestor) 20 mg PO HS [facility] Last Admin: 09/29/17 21:55 Dose: 20 mg Sitagliptin Phosphate (Januvia) 100 mg PO DAILY [facility] Last Admin: 09/30/17 10:41 Dose: 100 mg Spironolactone (Aldactone) 12.5 mg PO DAILY [facility] Last Admin: 09/30/17 10:42 Dose: 12.5 mg - Labs Labs: 09/24/17 07:31 09/28/17 07:19 PT 13.0 SECONDS (9.7-12.2) H 09/20/17 06:18 INR 1.2 09/20/17 06:18 APTT 53 SECONDS (21-34) H D 09/15/17 14:21
--- NOTE | 2017-09-30 23:03 | CP.PCM.PN ---
Subjective - Date & Time of Evaluation Date of Evaluation: 09/30/17 Time of Evaluation: 18:00 - Subjective Subjective: Patient seen and examined today Objective - Vital Signs/Intake and Output Vital Signs (last 24 hours): Temp Pulse Resp BP Pulse Ox 97.7 F 85 20 106/62 96 09/30/17 08:00 09/30/17 16:28 09/30/17 08:00 09/30/17 10:42 09/30/17 08:00 Intake and Output: 09/30/17 10/01/17 18:59 06:59 Intake Total 120 Balance 120 - Medications Medications: Current Medications Acetaminophen (Tylenol 325mg Tab) 650 mg PO Q6 PRN PRN Reason: Pain, moderate (4-7) Last Admin: 09/29/17 03:05 Dose: 650 mg Albuterol Sulfate (Albuterol 0.042% Inhal Kathy (1.25mg/3ml) Ud) 1.25 mg INH RQ6 [facility] Last Admin: 09/30/17 20:07 Dose: 1.25 mg Aspirin (Aspirin Chewable) 81 mg PO DAILY [facility] Last Admin: 09/30/17 10:42 Dose: 81 mg Clopidogrel Bisulfate (Plavix) 75 mg PO DAILY [facility] Last Admin: 09/30/17 10:41 Dose: 75 mg Donepezil HCl (Aricept) 10 mg PO HS [facility] Last Admin: 09/30/17 21:19 Dose: 10 mg Enoxaparin Sodium (Lovenox) 40 mg SC DAILY [facility] Last Admin: 09/30/17 10:41 Dose: 40 mg Furosemide (Lasix) 40 mg IVP DAILY [facility] Last Admin: 09/30/17 10:42 Dose: 40 mg Guaifenesin (Robitussin) 100 mg PO Q4H PRN PRN Reason: Cough Insulin Human Regular (Novolin R) 0 unit SC ACHS [facility] PRN Reason: Protocol Last Admin: 09/30/17 21:31 Dose: Not Given Losartan Potassium (Cozaar) 25 mg PO DAILY [facility] Last Admin: 09/13/17 10:05 Dose: Not Given Nicotine (Nicoderm Cq) 1 patch TD DAILY [facility] Last Admin: 09/30/17 10:42 Dose: 1 patch Rosuvastatin Calcium (Crestor) 20 mg PO HS [facility] Last Admin: 09/30/17 21:19 Dose: 20 mg Sitagliptin Phosphate (Januvia) 100 mg PO DAILY [facility] Last Admin: 09/30/17 10:41 Dose: 100 mg Spironolactone (Aldactone) 12.5 mg PO DAILY [facility] Last Admin: 09/30/17 10:42 Dose: 12.5 mg - Labs Labs: 09/24/17 07:31 09/28/17 07:19 PT 13.0 SECONDS (9.7-12.2) H 09/20/17 06:18 INR 1.2 09/20/17 06:18 APTT 53 SECONDS (21-34) H D 09/15/17 14:21 Assessment and Plan (1) STEMI (ST elevation myocardial infarction) Status: Resolved (2) Carotid atherosclerosis Status: Acute (3) Dementia Status: Acute (4) Diabetes mellitus type 2 in nonobese Status: Chronic (5) Hypertension Status: Chronic (6) Dilated cardiomyopathy Status: Acute
--- NOTE | 2017-09-30 23:43 | CP.PCM.PN ---
Subjective - Date & Time of Evaluation Date of Evaluation: 09/29/17 Time of Evaluation: 19:10 - Subjective Subjective: Patient seen and evaluated Denies chest pain and dyspnea Objective - Vital Signs/Intake and Output Vital Signs (last 24 hours): Temp Pulse Resp BP Pulse Ox 97.7 F 85 20 106/62 96 09/30/17 08:00 09/30/17 16:28 09/30/17 08:00 09/30/17 10:42 09/30/17 08:00 Intake and Output: 09/30/17 10/01/17 18:59 06:59 Intake Total 120 Balance 120 - Medications Medications: Current Medications Acetaminophen (Tylenol 325mg Tab) 650 mg PO Q6 PRN PRN Reason: Pain, moderate (4-7) Last Admin: 09/29/17 03:05 Dose: 650 mg Albuterol Sulfate (Albuterol 0.042% Inhal Kathy (1.25mg/3ml) Ud) 1.25 mg INH RQ6 [facility] Last Admin: 09/30/17 20:07 Dose: 1.25 mg Aspirin (Aspirin Chewable) 81 mg PO DAILY [facility] Last Admin: 09/30/17 10:42 Dose: 81 mg Clopidogrel Bisulfate (Plavix) 75 mg PO DAILY [facility] Last Admin: 09/30/17 10:41 Dose: 75 mg Donepezil HCl (Aricept) 10 mg PO HS [facility] Last Admin: 09/30/17 21:19 Dose: 10 mg Enoxaparin Sodium (Lovenox) 40 mg SC DAILY [facility] Last Admin: 09/30/17 10:41 Dose: 40 mg Furosemide (Lasix) 40 mg IVP DAILY [facility] Last Admin: 09/30/17 10:42 Dose: 40 mg Guaifenesin (Robitussin) 100 mg PO Q4H PRN PRN Reason: Cough Insulin Human Regular (Novolin R) 0 unit SC ACHS [facility] PRN Reason: Protocol Last Admin: 09/30/17 21:31 Dose: Not Given Losartan Potassium (Cozaar) 25 mg PO DAILY [facility] Last Admin: 09/13/17 10:05 Dose: Not Given Nicotine (Nicoderm Cq) 1 patch TD DAILY [facility] Last Admin: 09/30/17 10:42 Dose: 1 patch Rosuvastatin Calcium (Crestor) 20 mg PO HS [facility] Last Admin: 09/30/17 21:19 Dose: 20 mg Sitagliptin Phosphate (Januvia) 100 mg PO DAILY [facility] Last Admin: 09/30/17 10:41 Dose: 100 mg Spironolactone (Aldactone) 12.5 mg PO DAILY [facility] Last Admin: 09/30/17 10:42 Dose: 12.5 mg - Labs Labs: 09/24/17 07:31 09/28/17 07:19 PT 13.0 SECONDS (9.7-12.2) H 09/20/17 06:18 INR 1.2 09/20/17 06:18 APTT 53 SECONDS (21-34) H D 09/15/17 14:21
--- NOTE | 2017-09-30 23:44 | CP.PCM.PN ---
Subjective - Date & Time of Evaluation Date of Evaluation: 09/30/17 Time of Evaluation: 16:30 - Subjective Subjective: Patient seen and evaluated Denies chest pain and dypnea Awaiting placement Objective - Vital Signs/Intake and Output Vital Signs (last 24 hours): Temp Pulse Resp BP Pulse Ox 97.7 F 85 20 106/62 96 09/30/17 08:00 09/30/17 16:28 09/30/17 08:00 09/30/17 10:42 09/30/17 08:00 Intake and Output: 09/30/17 10/01/17 18:59 06:59 Intake Total 120 Balance 120 - Medications Medications: Current Medications Acetaminophen (Tylenol 325mg Tab) 650 mg PO Q6 PRN PRN Reason: Pain, moderate (4-7) Last Admin: 09/29/17 03:05 Dose: 650 mg Albuterol Sulfate (Albuterol 0.042% Inhal Kathy (1.25mg/3ml) Ud) 1.25 mg INH RQ6 [facility] Last Admin: 09/30/17 20:07 Dose: 1.25 mg Aspirin (Aspirin Chewable) 81 mg PO DAILY [facility] Last Admin: 09/30/17 10:42 Dose: 81 mg Clopidogrel Bisulfate (Plavix) 75 mg PO DAILY [facility] Last Admin: 09/30/17 10:41 Dose: 75 mg Donepezil HCl (Aricept) 10 mg PO HS [facility] Last Admin: 09/30/17 21:19 Dose: 10 mg Enoxaparin Sodium (Lovenox) 40 mg SC DAILY [facility] Last Admin: 09/30/17 10:41 Dose: 40 mg Furosemide (Lasix) 40 mg IVP DAILY [facility] Last Admin: 09/30/17 10:42 Dose: 40 mg Guaifenesin (Robitussin) 100 mg PO Q4H PRN PRN Reason: Cough Insulin Human Regular (Novolin R) 0 unit SC ACHS [facility] PRN Reason: Protocol Last Admin: 09/30/17 21:31 Dose: Not Given Losartan Potassium (Cozaar) 25 mg PO DAILY [facility] Last Admin: 09/13/17 10:05 Dose: Not Given Nicotine (Nicoderm Cq) 1 patch TD DAILY [facility] Last Admin: 09/30/17 10:42 Dose: 1 patch Rosuvastatin Calcium (Crestor) 20 mg PO HS [facility] Last Admin: 09/30/17 21:19 Dose: 20 mg Sitagliptin Phosphate (Januvia) 100 mg PO DAILY [facility] Last Admin: 09/30/17 10:41 Dose: 100 mg Spironolactone (Aldactone) 12.5 mg PO DAILY [facility] Last Admin: 09/30/17 10:42 Dose: 12.5 mg - Labs Labs: 09/24/17 07:31 09/28/17 07:19 PT 13.0 SECONDS (9.7-12.2) H 09/20/17 06:18 INR 1.2 09/20/17 06:18 APTT 53 SECONDS (21-34) H D 09/15/17 14:21
[2017-10-01] MEDS: Albuterol 0.042% Inhal Sol (1.25 mg/3 mL) UD INH SCH ×4 (01:11→19:33)
[2017-10-01 07:11] LABS: BLOOD UREA NITROGEN 22 mg/dL (7-17); CALCIUM 8.5 mg/dl (8.6-10.4); GFR AFRICAN-AMERICAN > 60; GFR NON-AFRICAN AMERICAN > 60
[2017-10-01] MEDS: (Novolin R) Insulin Human Regular 100 units/ml vial SC SCH ×4 (08:04→21:44)
--- NOTE | 2017-10-01 17:45 | CP.PCM.PN ---
Subjective - Date & Time of Evaluation Date of Evaluation: 10/01/17 Time of Evaluation: 18:00 - Subjective Subjective: pt seen and examined Objective - Vital Signs/Intake and Output Vital Signs (last 24 hours): Temp Pulse Resp BP Pulse Ox 97.3 F L 74 18 110/70 96 10/01/17 15:10 10/01/17 16:00 10/01/17 15:10 10/01/17 15:10 10/01/17 15:10 - Medications Medications: Current Medications Acetaminophen (Tylenol 325mg Tab) 650 mg PO Q6 PRN PRN Reason: Pain, moderate (4-7) Last Admin: 10/01/17 02:54 Dose: 650 mg Albuterol Sulfate (Albuterol 0.042% Inhal Kathy (1.25mg/3ml) Ud) 1.25 mg INH RQ6 [facility] Last Admin: 10/01/17 13:24 Dose: Not Given Aspirin (Aspirin Chewable) 81 mg PO DAILY [facility] Last Admin: 10/01/17 10:55 Dose: 81 mg Clopidogrel Bisulfate (Plavix) 75 mg PO DAILY [facility] Last Admin: 10/01/17 10:55 Dose: 75 mg Donepezil HCl (Aricept) 5 mg PO HS [facility] Furosemide (Lasix) 40 mg IVP DAILY [facility] Last Admin: 10/01/17 10:55 Dose: 40 mg Guaifenesin (Robitussin) 100 mg PO Q4H PRN PRN Reason: Cough Insulin Human Regular (Novolin R) 0 unit SC ACHS [facility] PRN Reason: Protocol Last Admin: 10/01/17 12:30 Dose: Not Given Mirtazapine (Remeron) 7.5 mg PO HS [facility] Nicotine (Nicoderm Cq) 1 patch TD DAILY [facility] Last Admin: 10/01/17 10:55 Dose: 1 patch Rosuvastatin Calcium (Crestor) 20 mg PO HS [facility] Last Admin: 09/30/17 21:19 Dose: 20 mg Sitagliptin Phosphate (Januvia) 100 mg PO DAILY [facility] Last Admin: 10/01/17 10:55 Dose: 100 mg - Labs Labs: 09/24/17 07:31 10/01/17 06:43 PT 13.0 SECONDS (9.7-12.2) H 09/20/17 06:18 INR 1.2 02/20/18 06:18 APTT 53 SECONDS (21-34) H D 09/15/17 14:21 Assessment and Plan (1) STEMI (ST elevation myocardial infarction) Status: Resolved (2) Carotid atherosclerosis Status: Acute (3) Dementia Status: Acute (4) Diabetes mellitus type 2 in nonobese Status: Chronic (5) Hypertension Status: Chronic (6) Dilated cardiomyopathy Status: Acute
--- NOTE | 2017-10-01 22:30 | CP.PCM.PN ---
Subjective - Date & Time of Evaluation Date of Evaluation: 10/01/17 Time of Evaluation: 11:05 - Subjective Subjective: Patient seen and evaluated Denies chest pain and dyspnea Objective - Vital Signs/Intake and Output Vital Signs (last 24 hours): Temp Pulse Resp BP Pulse Ox 97.3 F L 74 18 110/70 96 10/01/17 15:10 10/01/17 16:00 10/01/17 15:10 10/01/17 15:10 10/01/17 15:10 - Medications Medications: Current Medications Acetaminophen (Tylenol 325mg Tab) 650 mg PO Q6 PRN PRN Reason: Pain, moderate (4-7) Last Admin: 10/01/17 02:54 Dose: 650 mg Albuterol Sulfate (Albuterol 0.042% Inhal Kathy (1.25mg/3ml) Ud) 1.25 mg INH RQ6 [facility] Last Admin: 10/01/17 19:33 Dose: 1.25 mg Aspirin (Aspirin Chewable) 81 mg PO DAILY [facility] Last Admin: 10/01/17 10:55 Dose: 81 mg Clopidogrel Bisulfate (Plavix) 75 mg PO DAILY [facility] Last Admin: 10/01/17 10:55 Dose: 75 mg Donepezil HCl (Aricept) 5 mg PO HS [facility] Last Admin: 10/01/17 21:44 Dose: 5 mg Furosemide (Lasix) 40 mg IVP DAILY [facility] Last Admin: 10/01/17 10:55 Dose: 40 mg Guaifenesin (Robitussin) 100 mg PO Q4H PRN PRN Reason: Cough Insulin Human Regular (Novolin R) 0 unit SC ACHS [facility] PRN Reason: Protocol Last Admin: 10/01/17 17:15 Dose: 1 unit Mirtazapine (Remeron) 7.5 mg PO HS [facility] Last Admin: 10/01/17 21:43 Dose: 7.5 mg Nicotine (Nicoderm Cq) 1 patch TD DAILY [facility] Last Admin: 10/01/17 10:55 Dose: 1 patch Rosuvastatin Calcium (Crestor) 20 mg PO HS [facility] Last Admin: 10/01/17 21:43 Dose: 20 mg Sitagliptin Phosphate (Januvia) 100 mg PO DAILY [facility] Last Admin: 10/01/17 10:55 Dose: 100 mg - Labs Labs: 09/24/17 07:31 10/01/17 06:43 PT 13.0 SECONDS (9.7-12.2) H 09/20/17 06:18 INR 1.2 09/20/17 06:18 APTT 53 SECONDS (21-34) H D 09/15/17 14:21
[2017-10-02] MEDS: Albuterol 0.042% Inhal Sol (1.25 mg/3 mL) UD INH SCH ×4 (02:25→19:32)
[2017-10-02] MEDS: (Novolin R) Insulin Human Regular 100 units/ml vial SC SCH ×4 (08:01→22:59)
--- NOTE | 2017-10-02 20:55 | CP.PCM.PN ---
Subjective - Date & Time of Evaluation Date of Evaluation: 10/02/17 Time of Evaluation: 07:35 Objective - Vital Signs/Intake and Output Vital Signs (last 24 hours): Temp Pulse Resp BP Pulse Ox 97.7 F 80 20 96/56 L 98 10/02/17 16:00 10/02/17 16:00 10/02/17 16:00 10/02/17 16:00 10/02/17 16:00 - Medications Medications: Current Medications Acetaminophen (Tylenol 325mg Tab) 650 mg PO Q6 PRN PRN Reason: Pain, moderate (4-7) Last Admin: 10/01/17 02:54 Dose: 650 mg Albuterol Sulfate (Albuterol 0.042% Inhal Kathy (1.25mg/3ml) Ud) 1.25 mg INH RQ6 [facility] Last Admin: 10/02/17 19:32 Dose: 1.25 mg Aspirin (Aspirin Chewable) 81 mg PO DAILY [facility] Last Admin: 10/02/17 10:21 Dose: 81 mg Clopidogrel Bisulfate (Plavix) 75 mg PO DAILY [facility] Last Admin: 10/02/17 10:21 Dose: 75 mg Donepezil HCl (Aricept) 5 mg PO HS [facility] Last Admin: 10/01/17 21:44 Dose: 5 mg Furosemide (Lasix) 40 mg IVP DAILY [facility] Last Admin: 10/02/17 10:19 Dose: Not Given Guaifenesin (Robitussin) 100 mg PO Q4H PRN PRN Reason: Cough Insulin Human Regular (Novolin R) 0 unit SC ACHS [facility] PRN Reason: Protocol Last Admin: 10/02/17 17:15 Dose: Not Given Mirtazapine (Remeron) 7.5 mg PO HS [facility] Last Admin: 10/01/17 21:43 Dose: 7.5 mg Nicotine (Nicoderm Cq) 1 patch TD DAILY [facility] Last Admin: 10/02/17 10:20 Dose: 1 patch Rosuvastatin Calcium (Crestor) 20 mg PO HS [facility] Last Admin: 10/01/17 21:43 Dose: 20 mg Sitagliptin Phosphate (Januvia) 100 mg PO DAILY [facility] Last Admin: 10/02/17 10:21 Dose: 100 mg - Labs Labs: 09/24/17 07:31 10/01/17 06:43 PT 13.0 SECONDS (9.7-12.2) H 09/20/17 06:18 INR 1.2 09/20/17 06:18 APTT 53 SECONDS (21-34) H D 09/15/17 14:21
--- NOTE | 2017-10-02 21:40 | CP.PCM.PN ---
Subjective - Date & Time of Evaluation Date of Evaluation: 10/02/17 Time of Evaluation: 17:35 - Subjective Subjective: Patient seen and evaluated at bedside Objective - Vital Signs/Intake and Output Vital Signs (last 24 hours): Temp Pulse Resp BP Pulse Ox 97.7 F 80 20 96/56 L 98 10/02/17 16:00 10/02/17 16:00 10/02/17 16:00 10/02/17 16:00 10/02/17 16:00 - Medications Medications: Current Medications Acetaminophen (Tylenol 325mg Tab) 650 mg PO Q6 PRN PRN Reason: Pain, moderate (4-7) Last Admin: 10/01/17 02:54 Dose: 650 mg Albuterol Sulfate (Albuterol 0.042% Inhal Kathy (1.25mg/3ml) Ud) 1.25 mg INH RQ6 [facility] Last Admin: 10/02/17 19:32 Dose: 1.25 mg Aspirin (Aspirin Chewable) 81 mg PO DAILY [facility] Last Admin: 10/02/17 10:21 Dose: 81 mg Clopidogrel Bisulfate (Plavix) 75 mg PO DAILY [facility] Last Admin: 10/02/17 10:21 Dose: 75 mg Donepezil HCl (Aricept) 5 mg PO HS [facility] Last Admin: 10/02/17 21:25 Dose: 5 mg Furosemide (Lasix) 40 mg IVP DAILY [facility] Last Admin: 10/02/17 10:19 Dose: Not Given Guaifenesin (Robitussin) 100 mg PO Q4H PRN PRN Reason: Cough Insulin Human Regular (Novolin R) 0 unit SC ACHS [facility] PRN Reason: Protocol Last Admin: 10/02/17 17:15 Dose: Not Given Mirtazapine (Remeron) 7.5 mg PO HS [facility] Last Admin: 10/02/17 21:25 Dose: 7.5 mg Nicotine (Nicoderm Cq) 1 patch TD DAILY [facility] Last Admin: 10/02/17 10:20 Dose: 1 patch Rosuvastatin Calcium (Crestor) 20 mg PO HS [facility] Last Admin: 10/02/17 21:25 Dose: 20 mg Sitagliptin Phosphate (Januvia) 100 mg PO DAILY [facility] Last Admin: 10/02/17 10:21 Dose: 100 mg - Labs Labs: 09/24/17 07:31 10/01/17 06:43 PT 13.0 SECONDS (9.7-12.2) H 09/20/17 06:18 INR 1.2 09/20/17 06:18 APTT 53 SECONDS (21-34) H D 09/15/17 14:21 Assessment and Plan (1) STEMI (ST elevation myocardial infarction) Status: Resolved (2) Carotid atherosclerosis Status: Acute (3) Dementia Status: Acute (4) Diabetes mellitus type 2 in nonobese Status: Chronic (5) Hypertension Status: Chronic (6) Dilated cardiomyopathy Status: Acute
[2017-10-03] MEDS: Albuterol 0.042% Inhal Sol (1.25 mg/3 mL) UD INH SCH ×4 (02:43→20:37)
[2017-10-03] MEDS: (Novolin R) Insulin Human Regular 100 units/ml vial SC SCH ×4 (08:30→21:36)
--- NOTE | 2017-10-03 08:40 | CARD ---
APPROVED REPORT EKG Measurement Heart [id number] <Conclusion> Normal sinus rhythm Left anterior fascicular block Recent Anterior infarct, T wave abnormality, consider lateral ischemia Abnormal ECG
--- NOTE | 2017-10-03 23:35 | CP.PCM.PN ---
Subjective - Date & Time of Evaluation Date of Evaluation: 10/03/17 Time of Evaluation: 19:00 - Subjective Subjective: Pt is feeling better, more alert, less short of breath, positive coughing Objective - Vital Signs/Intake and Output Vital Signs (last 24 hours): Temp Pulse Resp BP Pulse Ox 97.3 F L 71 20 101/59 L 96 10/03/17 15:00 10/03/17 17:57 10/03/17 15:00 10/03/17 15:00 10/03/17 15:00 - Medications Medications: Current Medications Acetaminophen (Tylenol 325mg Tab) 650 mg PO Q6 PRN PRN Reason: Pain, moderate (4-7) Last Admin: 10/01/17 02:54 Dose: 650 mg Albuterol Sulfate (Albuterol 0.042% Inhal Kathy (1.25mg/3ml) Ud) 1.25 mg INH RQ6 [facility] Last Admin: 10/03/17 20:37 Dose: 1.25 mg Aspirin (Aspirin Chewable) 81 mg PO DAILY [facility] Last Admin: 10/03/17 10:09 Dose: 81 mg Clopidogrel Bisulfate (Plavix) 75 mg PO DAILY [facility] Last Admin: 10/03/17 10:09 Dose: 75 mg Donepezil HCl (Aricept) 5 mg PO HS [facility] Last Admin: 10/03/17 21:35 Dose: 5 mg Furosemide (Lasix) 40 mg IVP DAILY [facility] Last Admin: 10/03/17 10:08 Dose: 40 mg Guaifenesin (Robitussin) 100 mg PO Q4H PRN PRN Reason: Cough Insulin Human Regular (Novolin R) 0 unit SC ACHS [facility] PRN Reason: Protocol Last Admin: 10/03/17 21:36 Dose: Not Given Mirtazapine (Remeron) 7.5 mg PO HS [facility] Last Admin: 10/03/17 21:35 Dose: 7.5 mg Nicotine (Nicoderm Cq) 1 patch TD DAILY [facility] Last Admin: 10/03/17 10:09 Dose: 1 patch Rosuvastatin Calcium (Crestor) 20 mg PO HS [facility] Last Admin: 10/03/17 21:35 Dose: 20 mg Sitagliptin Phosphate (Januvia) 100 mg PO DAILY [facility] Last Admin: 10/03/17 10:09 Dose: 100 mg - Labs Labs: 09/24/17 07:31 10/01/17 06:43 PT 13.0 SECONDS (9.7-12.2) H 09/20/17 06:18 INR 1.2 09/20/17 06:18 APTT 53 SECONDS (21-34) H D 09/15/17 14:21 - Constitutional Appears: No Acute Distress - Head Exam Head Exam: ATRAUMATIC, NORMAL INSPECTION, NORMOCEPHALIC - Eye Exam Eye Exam: EOMI, Normal appearance, PERRL Pupil Exam: NORMAL ACCOMODATION, PERRL - Respiratory Exam Respiratory Exam: Decreased Breath Sounds, Rales, Rhonchi - Cardiovascular Exam Cardiovascular Exam: REGULAR RHYTHM, +S1, +S2. absent: Murmur - GI/Abdominal Exam GI & Abdominal Exam: Soft, Normal Bowel Sounds. absent: Tenderness Assessment and Plan (1) STEMI (ST elevation myocardial infarction) Status: Resolved (2) Carotid atherosclerosis Status: Acute (3) Dementia Status: Acute (4) Diabetes mellitus type 2 in nonobese Status: Chronic (5) Hypertension Status: Chronic (6) Dilated cardiomyopathy Status: Acute - Assessment and Plan (Free Text) Plan: continue current medications sub acute rehab
--- NOTE | 2017-10-03 23:45 | CP.PCM.PN ---
Subjective - Date & Time of Evaluation Date of Evaluation: 10/03/17 Time of Evaluation: 15:40 - Subjective Subjective: Patient seen and evaluated Denies chest pain and dyspnea s/p MS Medical management Objective - Vital Signs/Intake and Output Vital Signs (last 24 hours): Temp Pulse Resp BP Pulse Ox 97.3 F L 71 20 101/59 L 96 10/03/17 15:00 10/03/17 17:57 10/03/17 15:00 10/03/17 15:00 10/03/17 15:00 - Medications Medications: Current Medications Acetaminophen (Tylenol 325mg Tab) 650 mg PO Q6 PRN PRN Reason: Pain, moderate (4-7) Last Admin: 10/01/17 02:54 Dose: 650 mg Albuterol Sulfate (Albuterol 0.042% Inhal Kathy (1.25mg/3ml) Ud) 1.25 mg INH RQ6 [facility] Last Admin: 10/03/17 20:37 Dose: 1.25 mg Aspirin (Aspirin Chewable) 81 mg PO DAILY [facility] Last Admin: 10/03/17 10:09 Dose: 81 mg Clopidogrel Bisulfate (Plavix) 75 mg PO DAILY [facility] Last Admin: 10/03/17 10:09 Dose: 75 mg Donepezil HCl (Aricept) 5 mg PO HS [facility] Last Admin: 10/03/17 21:35 Dose: 5 mg Furosemide (Lasix) 40 mg IVP DAILY [facility] Last Admin: 10/03/17 10:08 Dose: 40 mg Guaifenesin (Robitussin) 100 mg PO Q4H PRN PRN Reason: Cough Insulin Human Regular (Novolin R) 0 unit SC ACHS [facility] PRN Reason: Protocol Last Admin: 10/03/17 21:36 Dose: Not Given Mirtazapine (Remeron) 7.5 mg PO HS [facility] Last Admin: 10/03/17 21:35 Dose: 7.5 mg Nicotine (Nicoderm Cq) 1 patch TD DAILY [facility] Last Admin: 10/03/17 10:09 Dose: 1 patch Rosuvastatin Calcium (Crestor) 20 mg PO HS [facility] Last Admin: 10/03/17 21:35 Dose: 20 mg Sitagliptin Phosphate (Januvia) 100 mg PO DAILY [facility] Last Admin: 10/03/17 10:09 Dose: 100 mg - Labs Labs: 09/24/17 07:31 10/01/17 06:43 PT 13.0 SECONDS (9.7-12.2) H 09/20/17 06:18 INR 1.2 09/20/17 06:18 APTT 53 SECONDS (21-34) H D 09/15/17 14:21
[2017-10-04] MEDS: Albuterol 0.042% Inhal Sol (1.25 mg/3 mL) UD INH SCH ×3 (01:55→13:14)
[2017-10-04] MEDS: (Novolin R) Insulin Human Regular 100 units/ml vial SC SCH ×3 (08:00→21:06)
[2017-10-04 14:10] LABS: BASO # 0.1 K/uL (0.0-0.2); EOS # 0.2 K/uL (0.0-0.7); EOS % 1.7 % (0.0-4.0); HEMOGLOBIN 12.3 g/dL (11.0-16.0); LYMPH % 18.9 % (20.0-40.0); MEAN CELL VOLUME 87.7 fL (81.0-99.0); MEAN CORPUSCULAR HEMOGLOBIN 28.7 pg (27.0-31.0); MEAN CORPUSCULAR HGB CONC 32.7 g/dL (33.0-37.0); MEAN PLATELET VOLUME 8.5 fL (7.2-11.7); MONO # 0.9 K/uL (0.0-0.8); MONO % 8.6 % (0.0-10.0); NEUT # 7.2 K/uL (1.8-7.0); NEUT % 69.8 % (50.0-75.0); RBC 4.29 Mil/uL (3.80-5.20); RED CELL DISTRIBUTION WIDTH 14.6 % (11.5-14.5); WHITE BLOOD COUNT 10.4 K/uL (4.8-10.8)
[2017-10-04 14:21] LABS: BLOOD UREA NITROGEN 25 mg/dL (7-17); CALCIUM 8.9 mg/dl (8.6-10.4); GFR AFRICAN-AMERICAN > 60; GFR NON-AFRICAN AMERICAN > 60
--- NOTE | 2017-10-04 23:27 | CP.PCM.PN ---
Subjective - Date & Time of Evaluation Date of Evaluation: 10/04/17 Time of Evaluation: 20:50 - Subjective Subjective: PT IS IMPROVING, IMPROVING, WAITING FOR SUBACUTE REHAB Objective - Vital Signs/Intake and Output Vital Signs (last 24 hours): Temp Pulse Resp BP Pulse Ox 98.2 F 96 H 20 107/68 96 10/04/17 23:05 10/04/17 23:05 10/04/17 23:05 10/04/17 23:05 10/04/17 23:05 - Medications Medications: Current Medications Acetaminophen (Tylenol 325mg Tab) 650 mg PO Q6 PRN PRN Reason: Pain, moderate (4-7) Last Admin: 10/01/17 02:54 Dose: 650 mg Aspirin (Aspirin Chewable) 81 mg PO DAILY [facility] Last Admin: 10/04/17 10:12 Dose: 81 mg Clopidogrel Bisulfate (Plavix) 75 mg PO DAILY [facility] Last Admin: 10/04/17 10:12 Dose: 75 mg Donepezil HCl (Aricept) 5 mg PO HS [facility] Last Admin: 10/04/17 21:06 Dose: 5 mg Furosemide (Lasix) 40 mg IVP DAILY [facility] Last Admin: 10/04/17 10:13 Dose: Not Given Guaifenesin (Robitussin) 100 mg PO Q4H PRN PRN Reason: Cough Mirtazapine (Remeron) 7.5 mg PO HS [facility] Last Admin: 10/04/17 21:06 Dose: 7.5 mg Nicotine (Nicoderm Cq) 1 patch TD DAILY [facility] Last Admin: 10/04/17 10:13 Dose: 1 patch Rosuvastatin Calcium (Crestor) 20 mg PO HS [facility] Last Admin: 10/04/17 21:06 Dose: 20 mg Sitagliptin Phosphate (Januvia) 100 mg PO DAILY [facility] Last Admin: 10/04/17 10:12 Dose: 100 mg - Labs Labs: 10/04/17 14:00 10/04/17 14:00 PT 13.0 SECONDS (9.7-12.2) H 09/20/17 06:18 INR 1.2 09/20/17 06:18 APTT 53 SECONDS (21-34) H D 09/15/17 14:21 - Constitutional Appears: No Acute Distress - Head Exam Head Exam: ATRAUMATIC, NORMAL INSPECTION, NORMOCEPHALIC - Eye Exam Eye Exam: EOMI, Normal appearance, PERRL Pupil Exam: NORMAL ACCOMODATION, PERRL - Respiratory Exam Respiratory Exam: Clear to Ausculation Bilateral, NORMAL BREATHING PATTERN - Cardiovascular Exam Cardiovascular Exam: REGULAR RHYTHM, +S1, +S2. absent: Murmur - GI/Abdominal Exam GI & Abdominal Exam: Soft, Normal Bowel Sounds. absent: Tenderness Assessment and Plan (1) STEMI (ST elevation myocardial infarction) Status: Resolved (2) Carotid atherosclerosis Status: Acute (3) Dementia Status: Acute (4) Diabetes mellitus type 2 in nonobese Status: Chronic (5) Hypertension Status: Chronic (6) Dilated cardiomyopathy Status: Acute
--- NOTE | 2017-10-05 22:45 | CP.PCM.PN ---
Subjective - Date & Time of Evaluation Date of Evaluation: 10/05/17 Time of Evaluation: 18:00 - Subjective Subjective: Pt seen & examined at bedside Objective - Vital Signs/Intake and Output Vital Signs (last 24 hours): Temp Pulse Resp BP Pulse Ox 97.5 F L 79 20 91/56 L 98 10/05/17 16:00 10/05/17 16:00 10/05/17 16:00 10/05/17 16:00 10/05/17 16:00 - Medications Medications: Current Medications Acetaminophen (Tylenol 325mg Tab) 650 mg PO Q6 PRN PRN Reason: Pain, moderate (4-7) Last Admin: 10/01/17 02:54 Dose: 650 mg Aspirin (Aspirin Chewable) 81 mg PO DAILY [facility] Last Admin: 10/05/17 10:06 Dose: 81 mg Clopidogrel Bisulfate (Plavix) 75 mg PO DAILY [facility] Last Admin: 10/05/17 10:06 Dose: 75 mg Donepezil HCl (Aricept) 5 mg PO HS [facility] Last Admin: 10/05/17 21:39 Dose: 5 mg Furosemide (Lasix) 40 mg IVP DAILY [facility] Last Admin: 10/05/17 10:07 Dose: Not Given Guaifenesin (Robitussin) 100 mg PO Q4H PRN PRN Reason: Cough Mirtazapine (Remeron) 7.5 mg PO HS [facility] Last Admin: 10/05/17 21:40 Dose: 7.5 mg Nicotine (Nicoderm Cq) 1 patch TD DAILY [facility] Last Admin: 10/05/17 10:07 Dose: 1 patch Rosuvastatin Calcium (Crestor) 20 mg PO HS [facility] Last Admin: 10/05/17 21:40 Dose: 20 mg Sitagliptin Phosphate (Januvia) 100 mg PO DAILY [facility] Last Admin: 10/05/17 10:06 Dose: 100 mg - Labs Labs: 10/04/17 14:00 10/04/17 14:00 PT 13.0 SECONDS (9.7-12.2) H 09/20/17 06:18 INR 1.2 09/20/17 06:18 APTT 53 SECONDS (21-34) H D 09/15/17 14:21 Assessment and Plan (1) STEMI (ST elevation myocardial infarction) Status: Resolved (2) Carotid atherosclerosis Status: Acute (3) Dementia Status: Acute (4) Diabetes mellitus type 2 in nonobese Status: Chronic (5) Hypertension Status: Chronic (6) Dilated cardiomyopathy Status: Acute
--- NOTE | 2017-10-06 01:57 | CP.PCM.PN ---
Subjective - Date & Time of Evaluation Date of Evaluation: 10/05/17 Time of Evaluation: 15:15 - Subjective Subjective: Patient seen and evaluated Comfortable Awaiting Rehab placement Objective - Vital Signs/Intake and Output Vital Signs (last 24 hours): Temp Pulse Resp BP Pulse Ox 98.1 F 89 20 105/65 98 10/06/17 01:54 10/06/17 01:54 10/06/17 01:54 10/06/17 01:54 10/06/17 01:54 - Medications Medications: Current Medications Acetaminophen (Tylenol 325mg Tab) 650 mg PO Q6 PRN PRN Reason: Pain, moderate (4-7) Last Admin: 10/01/17 02:54 Dose: 650 mg Aspirin (Aspirin Chewable) 81 mg PO DAILY [facility] Last Admin: 10/05/17 10:06 Dose: 81 mg Clopidogrel Bisulfate (Plavix) 75 mg PO DAILY [facility] Last Admin: 10/05/17 10:06 Dose: 75 mg Donepezil HCl (Aricept) 5 mg PO HS [facility] Last Admin: 10/05/17 21:39 Dose: 5 mg Furosemide (Lasix) 40 mg IVP DAILY [facility] Last Admin: 10/05/17 10:07 Dose: Not Given Guaifenesin (Robitussin) 100 mg PO Q4H PRN PRN Reason: Cough Mirtazapine (Remeron) 7.5 mg PO HS [facility] Last Admin: 10/05/17 21:40 Dose: 7.5 mg Nicotine (Nicoderm Cq) 1 patch TD DAILY [facility] Last Admin: 10/05/17 10:07 Dose: 1 patch Rosuvastatin Calcium (Crestor) 20 mg PO HS [facility] Last Admin: 10/05/17 21:40 Dose: 20 mg Sitagliptin Phosphate (Januvia) 100 mg PO DAILY [facility] Last Admin: 10/05/17 10:06 Dose: 100 mg - Labs Labs: 10/04/17 14:00 10/04/17 14:00 PT 13.0 SECONDS (9.7-12.2) H 09/20/17 06:18 INR 1.2 09/20/17 06:18 APTT 53 SECONDS (21-34) H D 09/15/17 14:21
--- NOTE | 2017-10-06 22:59 | CP.PCM.PN ---
Subjective - Date & Time of Evaluation Date of Evaluation: 10/06/17 Time of Evaluation: 11:05 - Subjective Subjective: Patient seen and evaluated No cardiac events noted Objective - Vital Signs/Intake and Output Vital Signs (last 24 hours): Temp Pulse Resp BP Pulse Ox 98.3 F 79 20 92/58 L 96 10/06/17 15:25 10/06/17 16:00 10/06/17 15:25 10/06/17 15:25 10/06/17 15:25 - Medications Medications: Current Medications Acetaminophen (Tylenol 325mg Tab) 650 mg PO Q6 PRN PRN Reason: Pain, moderate (4-7) Last Admin: 10/06/17 03:07 Dose: 650 mg Aspirin (Aspirin Chewable) 81 mg PO DAILY [facility] Last Admin: 10/06/17 10:45 Dose: 81 mg Clopidogrel Bisulfate (Plavix) 75 mg PO DAILY [facility] Last Admin: 10/06/17 10:47 Dose: 75 mg Donepezil HCl (Aricept) 5 mg PO HS [facility] Last Admin: 10/06/17 21:11 Dose: 5 mg Furosemide (Lasix) 40 mg IVP DAILY [facility] Last Admin: 10/06/17 10:48 Dose: Not Given Guaifenesin (Robitussin) 100 mg PO Q4H PRN PRN Reason: Cough Mirtazapine (Remeron) 7.5 mg PO HS [facility] Last Admin: 10/06/17 21:11 Dose: 7.5 mg Nicotine (Nicoderm Cq) 1 patch TD DAILY [facility] Last Admin: 10/06/17 10:47 Dose: 1 patch Rosuvastatin Calcium (Crestor) 20 mg PO HS [facility] Last Admin: 10/06/17 21:11 Dose: 20 mg Sitagliptin Phosphate (Januvia) 100 mg PO DAILY [facility] Last Admin: 10/06/17 10:47 Dose: 100 mg - Labs Labs: 10/04/17 14:00 10/04/17 14:00 PT 13.0 SECONDS (9.7-12.2) H 09/20/17 06:18 INR 1.2 09/20/17 06:18 APTT 53 SECONDS (21-34) H D 09/15/17 14:21
--- NOTE | 2017-10-06 23:23 | CP.PCM.PN ---
Subjective - Date & Time of Evaluation Date of Evaluation: 10/06/17 Time of Evaluation: 19:00 - Subjective Subjective: PT IS DOING WELL, LESS ANXIOUS, PT IS DEMENTED, LESS SOB, MORE ALERT Objective - Vital Signs/Intake and Output Vital Signs (last 24 hours): Temp Pulse Resp BP Pulse Ox 98.3 F 79 20 92/58 L 96 10/06/17 15:25 10/06/17 16:00 10/06/17 15:25 10/06/17 15:25 10/06/17 15:25 - Medications Medications: Current Medications Acetaminophen (Tylenol 325mg Tab) 650 mg PO Q6 PRN PRN Reason: Pain, moderate (4-7) Last Admin: 10/06/17 03:07 Dose: 650 mg Aspirin (Aspirin Chewable) 81 mg PO DAILY [facility] Last Admin: 10/06/17 10:45 Dose: 81 mg Clopidogrel Bisulfate (Plavix) 75 mg PO DAILY [facility] Last Admin: 10/06/17 10:47 Dose: 75 mg Donepezil HCl (Aricept) 5 mg PO HS [facility] Last Admin: 10/06/17 21:11 Dose: 5 mg Furosemide (Lasix) 40 mg IVP DAILY [facility] Last Admin: 10/06/17 10:48 Dose: Not Given Guaifenesin (Robitussin) 100 mg PO Q4H PRN PRN Reason: Cough Mirtazapine (Remeron) 7.5 mg PO HS [facility] Last Admin: 10/06/17 21:11 Dose: 7.5 mg Nicotine (Nicoderm Cq) 1 patch TD DAILY [facility] Last Admin: 10/06/17 10:47 Dose: 1 patch Rosuvastatin Calcium (Crestor) 20 mg PO HS [facility] Last Admin: 10/06/17 21:11 Dose: 20 mg Sitagliptin Phosphate (Januvia) 100 mg PO DAILY [facility] Last Admin: 10/06/17 10:47 Dose: 100 mg - Labs Labs: 10/04/17 14:00 10/04/17 14:00 PT 13.0 SECONDS (9.7-12.2) H 09/20/17 06:18 INR 1.2 09/20/17 06:18 APTT 53 SECONDS (21-34) H D 09/15/17 14:21 - Constitutional Appears: No Acute Distress - Head Exam Head Exam: ATRAUMATIC, NORMAL INSPECTION, NORMOCEPHALIC - Eye Exam Eye Exam: EOMI, Normal appearance, PERRL Pupil Exam: NORMAL ACCOMODATION, PERRL - Respiratory Exam Respiratory Exam: Clear to Ausculation Bilateral, NORMAL BREATHING PATTERN - Cardiovascular Exam Cardiovascular Exam: REGULAR RHYTHM, +S1, +S2. absent: Murmur - GI/Abdominal Exam GI & Abdominal Exam: Soft, Normal Bowel Sounds. absent: Tenderness Assessment and Plan (1) STEMI (ST elevation myocardial infarction) Status: Resolved (2) Carotid atherosclerosis Status: Acute (3) Dementia Status: Acute (4) Diabetes mellitus type 2 in nonobese Status: Chronic (5) Hypertension Status: Chronic (6) Dilated cardiomyopathy Status: Acute
[2017-10-07 07:48] LABS: BASO # 0.1 K/uL (0.0-0.2); BASO % 0.8 % (0.0-2.0); EOS # 0.3 K/uL (0.0-0.7); EOS % 3.9 % (0.0-4.0); HEMOGLOBIN 11.2 g/dL (11.0-16.0); LYMPH # 1.5 K/uL (1.0-4.3); LYMPH % 19.9 % (20.0-40.0); MEAN CELL VOLUME 87.2 fL (81.0-99.0); MEAN CORPUSCULAR HEMOGLOBIN 29.2 pg (27.0-31.0); MEAN CORPUSCULAR HGB CONC 33.4 g/dL (33.0-37.0); MEAN PLATELET VOLUME 8.9 fL (7.2-11.7); MONO # 0.7 K/uL (0.0-0.8); MONO % 9.7 % (0.0-10.0); NEUT # 4.9 K/uL (1.8-7.0); NEUT % 65.7 % (50.0-75.0); RBC 3.83 Mil/uL (3.80-5.20); RED CELL DISTRIBUTION WIDTH 14.3 % (11.5-14.5); WHITE BLOOD COUNT 7.4 K/uL (4.8-10.8)
[2017-10-07 08:02] VITALS: O2SAT 95
[2017-10-07 08:17] LABS: BLOOD UREA NITROGEN 19 mg/dL (7-17); CALCIUM 8.7 mg/dl (8.6-10.4); GFR AFRICAN-AMERICAN > 60; GFR NON-AFRICAN AMERICAN > 60
[2017-10-07 15:30] VITALS: BP 98/63; RESP 20; TEMP 98.3
[2017-10-07 18:27] VITALS: PULSE 83
--- NOTE | 2017-10-07 23:05 | CP.PCM.DIS ---
Provider - Provider Date of Admission: 09/12/17 19:48 Attending physician: Celso Bonilla MD Time Spent in preparation of Discharge (in minutes): 34 Diagnosis - Discharge Diagnosis (1) STEMI (ST elevation myocardial infarction) Status: Resolved (2) Carotid atherosclerosis Status: Acute (3) Dementia Status: Acute (4) Diabetes mellitus type 2 in nonobese Status: Chronic (5) Hypertension Status: Chronic (6) Dilated cardiomyopathy Status: Acute Hospital Course - Lab Results Lab Results: Micro Results 09/16/17 13:15 Naris MRSA Culture - Final MRSA NOT DETECTED 09/12/17 21:18 Nose MRSA Culture (Admit) - Final MRSA NOT DETECTED Most Recent Lab Values WBC 7.4 K/uL (4.8-10.8) 10/07/17 07:35 RBC 3.83 Mil/uL (3.80-5.20) 10/07/17 07:35 Hgb 11.2 g/dL (11.0-16.0) 10/07/17 07:35 Hct 33.4 % (34.0-47.0) L 10/07/17 07:35 MCV 87.2 fL (81.0-99.0) 10/07/17 07:35 MCH 29.2 pg (27.0-31.0) 10/07/17 07:35 MCHC 33.4 g/dL (33.0-37.0) 10/07/17 07:35 RDW 14.3 % (11.5-14.5) 10/07/17 07:35 Plt Count 347 K/uL (130-400) D 10/07/17 07:35 MPV 8.9 fL (7.2-11.7) 10/07/17 07:35 Neut % (Auto) 65.7 % (50.0-75.0) 10/07/17 07:35 Lymph % (Auto) 19.9 % (20.0-40.0) L 10/07/17 07:35 [place] % (Auto) 9.7 % (0.0-10.0) 10/07/17 07:35 Eos % (Auto) 3.9 % (0.0-4.0) 10/07/17 07:35 Baso % (Auto) 0.8 % (0.0-2.0) 10/07/17 07:35 Neut # (Auto) 4.9 K/uL (1.8-7.0) 10/07/17 07:35 Lymph # (Auto) 1.5 K/uL (1.0-4.3) 10/07/17 07:35 [place] # (Auto) 0.7 K/uL (0.0-0.8) 10/07/17 07:35 Eos # (Auto) 0.3 K/uL (0.0-0.7) 10/07/17 07:35 Baso # (Auto) 0.1 K/uL (0.0-0.2) 10/07/17 07:35 Neutrophils % (Manual) 82 % (50-75) H 09/14/17 06:24 Band Neutrophils % 2 % (0-2) 09/14/17 06:24 Lymphocytes % (Manual) 11 % (20-40) L 09/14/17 06:24 Monocytes % (Manual) 5 % (0-10) 09/14/17 06:24 Platelet Estimate Normal (NORMAL) 09/14/17 06:24 RBC Morphology Normal 09/12/17 18:09 PT 13.0 SECONDS (9.7-12.2) H 09/20/17 06:18 INR 1.2 09/20/17 06:18 APTT 53 SECONDS (21-34) H D 09/15/17 14:21 Puncture Site Rra 09/24/17 14:58 pCO2 35 mm/Hg (35-45) 09/24/17 14:58 pO2 60 mm/Hg (80-100) L 09/24/17 14:58 HCO3 26.9 mmol/L (21-28) 09/24/17 14:58 ABG pH 7.48 (7.35-7.45) H 09/24/17 14:58 ABG Total CO2 27.2 mmol/L (22-28) 09/24/17 14:58 ABG O2 Saturation 94.1 % (95-98) L 09/24/17 14:58 ABG Base Excess 2.7 mmol/L (-2.0-3.0) 09/24/17 14:58 ABG Hemoglobin 10.6 g/dL (11.7-17.4) L 09/24/17 14:58 ABG Carboxyhemoglobin 2.1 % (0.5-1.5) H 09/24/17 14:58 POC ABG HHb (Measured) 5.7 % (0.0-5.0) H 09/24/17 14:58 ABG Methemoglobin 1.8 % (0.0-3.0) 09/24/17 14:58 Maksim Test Pos 09/24/17 14:58 A-a O2 Difference 46.0 mm/Hg 09/24/17 14:58 Respiratory Index 0.8 09/24/17 14:58 Hgb O2 Saturation 90.3 % (95.0-98.0) L 09/24/17 14:58 FiO2 21.0 % 09/24/17 14:58 Sodium 137 mmol/L (132-148) 10/07/17 07:35 Potassium 4.5 mmol/L (3.6-5.2) 10/07/17 07:35 Chloride 97 mmol/L (98-107) L 10/07/17 07:35 Carbon Dioxide 29 mmol/L (22-30) 10/07/17 07:35 Anion Gap 16 (10-20) 10/07/17 07:35 BUN 19 mg/dL (7-17) H 10/07/17 07:35 Creatinine 0.6 mg/dL (0.7-1.2) L 10/07/17 07:35 Est GFR ( Amer) > 60 10/07/17 07:35 Est GFR (Non-Af Amer) > 60 10/07/17 07:35 POC Glucose (mg/dL) 149 mg/dL (65-110) H 10/07/17 20:57 Random Glucose 102 mg/dL (65-105) 10/07/17 07:35 Hemoglobin A1c 6.5 % (4.2-6.5) D 09/13/17 06:30 Calcium 8.7 mg/dl (8.6-10.4) 10/07/17 07:35 Phosphorus 3.7 mg/dL (2.5-4.5) 09/16/17 06:30 Magnesium 2.2 mg/dL (1.6-2.3) 09/16/17 06:30 Total Bilirubin 0.5 mg/dL (0.2-1.3) 09/16/17 06:30 AST 49 U/L (14-36) H D 09/16/17 06:30 ALT 38 U/L (9-52) 09/16/17 06:30 Alkaline Phosphatase 92 U/L (38-126) 09/16/17 06:30 Ammonia 14 umol/L (9-33) 09/27/17 08:21 Total Creatine Kinase 185 U/L (30-135) H 09/15/17 06:17 CK-MB (Mass) 16.0 ng/mL (0.0-3.38) H 09/15/17 06:17 Troponin I 43.5000 ng/mL (0.00-0.120) H* 09/15/17 06:17 NT-Pro-B Natriuret Pep 8370 pg/mL (0-900) H 09/13/17 06:28 Total Protein 5.5 g/dL (6.3-8.3) L 09/16/17 06:30 Albumin 2.6 g/dL (3.5-5.0) L 09/16/17 06:30 Globulin 2.9 gm/dL (2.2-3.9) 09/16/17 06:30 Albumin/Globulin Ratio 0.9 (1.0-2.1) L 09/16/17 06:30 Triglycerides 119 mg/dL (0-149) 09/27/17 08:21 Cholesterol 98 mg/dL (0-199) 09/27/17 08:21 LDL Cholesterol Direct 34 mg/dL (0-129) 09/27/17 08:21 HDL Cholesterol 31 mg/dL (30-70) 09/27/17 08:21 Vitamin B12 337 pg/mL (239-931) 09/27/17 08:21 25-OH Vitamin D Total 32.1 NG/ML (30.0-100.0) 09/27/17 08:21 Folate 16.2 ng/mL 09/27/17 08:21 Homocysteine 12.2 umol/L (4.7-12.6) 09/27/17 08:21 Procalcitonin 0.53 NG/ML (0.19-0.49) H 09/13/17 14:27 Free T4 0.84 ng/dL (0.78-2.19) 09/27/17 08:21 TSH 3rd Generation 6.91 mIU/L (0.46-4.68) H 09/27/17 08:21 Urine Color Yellow (YELLOW) 09/13/17 15:51 Urine Clarity Hazy (Clear) 09/13/17 15:51 Urine pH 5.0 (5.0-8.0) 09/13/17 15:51 Ur Specific [place] 1.034 (1.003-1.030) H 09/13/17 15:51 Urine Protein Negative mg/dL (NEGATIVE) 09/13/17 15:51 Urine Glucose (UA) Normal mg/dL (Normal) 09/13/17 15:51 Urine Ketones Negative mg/dL (NEGATIVE) 09/13/17 15:51 Urine Blood 1+ (NEGATIVE) H 09/13/17 15:51 Urine Nitrate Negative (NEGATIVE) 09/13/17 15:51 Urine Bilirubin Negative (NEGATIVE) 09/13/17 15:51 Urine Urobilinogen Normal mg/dL (0.2-1.0) 09/13/17 15:51 Ur Leukocyte Esterase Neg [place]/uL (Negative) 09/13/17 15:51 Urine WBC (Auto) 2 /hpf (0-5) 09/13/17 15:51 Urine RBC (Auto) 7 /hpf (0-3) H 09/13/17 15:51 Ur Squamous Epith Cells 2 /hpf (0-5) 09/13/17 15:51 Urine Bacteria Rare (<OCC) 09/13/17 15:51 Hyaline Casts 3-5 /lpf (0-2) H 09/13/17 15:51 RPR Nonreactive (NONREACTIVE) 09/27/17 08:21 - Hospital Course Hospital Course: pt is for discharge she is less short of breath Discharge Exam - Head Exam Head Exam: ATRAUMATIC, NORMAL INSPECTION, NORMOCEPHALIC - Eye Exam Eye Exam: Normal appearance - Respiratory Exam Respiratory Exam: Clear to PA & Lateral, NORMAL BREATHING PATTERN - Cardiovascular Exam Cardiovascular Exam: REGULAR RHYTHM, +S1, +S2 - GI/Abdominal Exam GI & Abdominal Exam: Normal Bowel Sounds Discharge Plan - Discharge Medications Prescriptions: Furosemide [Lasix] 40 mg PO DAILY #30 udc - Follow Up Plan Condition: GOOD Disposition: REHAB FACILITY/REHAB UNIT Instructions: Heart Healthy Diet, Carbohydrate Counting Diet, Heart Attack (DC) , Automatic Cardioverter Defibrillator Implantation (DC), Foot Care for Diabetics, Diabetic Meal Planning Additional Instructions: PLEASE PLACE UNDER THE SERVICE OF DR. BONILLA WHILE AT [facility]-- CALL UPON ARRIVAL WITH BED ASSIGNMENT AND FOR ADMITTING ORDERS CONTINUE ALL MEDICATIONS PER THE MED REC FORM FALL PRECAUTIONS PER FACILITY PROTOCOL FOR FURTHER ORDERS, CALL DR. BONILLA'S OFFICE Referrals: Celso Bonilla MD [Staff Provider] -
== END 2017-10-07 22:12 | DRG 281 ==
LOC: C.ER 15:13 → C.9E 19:48 → C.9I 20:28 → C.6T 09-16 13:34
PROVIDERS: ADMIT Internal Medicine; ATTEND Internal Medicine
PROC: 4A023N7 Measurement of Cardiac Sampling and Pressure, Left Heart, Percutaneous Approach (ICD-10-PCS; principal; 2017-09-12)
PROC: B2111ZZ Fluoroscopy of Multiple Coronary Arteries using Low Osmolar Contrast (ICD-10-PCS; 2017-09-12)
PROC: B2161ZZ Fluoroscopy of Right and Left Heart using Low Osmolar Contrast (ICD-10-PCS; 2017-09-12)
DX: I21.09 ST elevation (STEMI) myocardial infarction involving other coronary artery of anterior wall (principal); I42.0 Dilated cardiomyopathy; E11.40 Type 2 diabetes mellitus with diabetic neuropathy, unspecified; E11.51 Type 2 diabetes mellitus with diabetic peripheral angiopathy without gangrene; F17.210 Nicotine dependence, cigarettes, uncomplicated; E78.00 Pure hypercholesterolemia, unspecified; E78.5 Hyperlipidemia, unspecified; F03.90 Unspecified dementia, unspecified severity, without behavioral disturbance, psychotic disturbance, mood disturbance, and anxiety; F41.9 Anxiety disorder, unspecified; I11.0 Hypertensive heart disease with heart failure; I25.10 Atherosclerotic heart disease of native coronary artery without angina pectoris; I25.5 Ischemic cardiomyopathy; I25.82 Chronic total occlusion of coronary artery; I50.9 Heart failure, unspecified; I65.29 Occlusion and stenosis of unspecified carotid artery; J44.9 Chronic obstructive pulmonary disease, unspecified; K21.9 Gastro-esophageal reflux disease without esophagitis; M17.0 Bilateral primary osteoarthritis of knee; Z95.810 Presence of automatic (implantable) cardiac defibrillator; Z79.82 Long term (current) use of aspirin; Z79.84 Long term (current) use of oral hypoglycemic drugs

== ENCOUNTER 2017-10-21 13:44 | Inpatient (IN) | payer MEDICARE, OTHER ==
[2017-10-21 13:45] VITALS: BMI 24.1
--- NOTE | 2017-10-21 14:21 | C.PDOC ---
History Of Present Illness 77 year old female with PMHx of CHF (20% EF), HTN, recent pacemaker insertion is sent to the ED from Dr. Robledo office for evaluation of weakness , low blood pressure. Patient is also c/o abdominal pain and SOB. Patient denies fever, chills, nausea, vomit, diarrhea, headache, numbness. Time Seen by Provider: 10/21/17 14:10 Chief Complaint (Nursing): Weakness/Neurological Deficit History Per: Patient History/Exam Limitations: no limitations Onset/Duration Of Symptoms: Days Current Symptoms Are (Timing): Gone Associated Symptoms Preceding Syncopal Episode: No Predromal Symptoms (Sudden Onset) Seizure Or Post-ictal Symptoms: None Fall Associated With With Symptoms: No Recent travel outside of the [place]: No Additional History Per: Patient Past Medical History Reviewed: Historical Data, Nursing Documentation, Vital Signs Vital Signs: Last Vital Signs Temp 97.3 F L 10/21/17 13:53 Pulse 77 10/21/17 17:40 Resp 16 10/21/17 17:40 BP 115/62 10/21/17 17:40 Pulse Ox 100 10/21/17 19:19 - Medical History PMH: Arthritis, Dementia (PER FAMILY), Diabetes, HTN, Hypercholesterolemia Denies: Chronic Kidney Disease Surgical History: No Surg Hx - [facility] Procedures FLUOROSCOPY OF MULT COR ART USING L OSM CONTRAST (09/12/17) FLUOROSCOPY OF RIGHT AND LEFT HEART USING L OSM CONTRAST (09/12/17) INSERTION OF INFUSION DEV INTO SUP VENA CAVA, PERC APPROACH (01/26/17) INTRODUCE LOCAL ANESTH IN PERIPH NRV, PLEXI, PERC (12/01/16) INTRODUCTION OF SERUM/TOX/VACCINE INTO MUSCLE, PERC APPROACH (12/01/16) MEASURE OF CARDIAC SAMPL & PRESSURE, L HEART, PERC APPROACH (09/12/17) REPOSITION RIGHT FIBULA WITH INT FIX, OPEN APPROACH (12/01/16) REPOSITION RIGHT TIBIA WITH INT FIX, OPEN APPROACH (12/01/16) Family History: States: Unknown Family Hx - Social History Hx Tobacco Use: Yes Hx Alcohol Use: Yes Hx Substance Use: No - Immunization History Hx Tetanus Toxoid Vaccination: No Hx Influenza Vaccination: Yes Hx Pneumococcal Vaccination: No Review Of Systems Except As Marked, All Systems Reviewed And Found Negative. Gastrointestinal: Positive for: Abdominal Pain Neurological: Positive for: Weakness Physical Exam - Physical Exam Appears: Non-toxic, No Acute Distress Skin: Normal Color, Warm, Dry Head: Atraumatic, Normacephalic Eye(s): bilateral: Normal Inspection Nose: No Discharge Oral Mucosa: Moist Neck: Normal ROM, Supple Chest: Symmetrical Cardiovascular: Rhythm Regular, No Murmur Respiratory: Rales (B/L bases), No Rhonchi, No Wheezing Gastrointestinal/Abdominal: Soft, Tenderness (Epigastric), Distention, No Guarding, No Rebound Extremity: Normal ROM, No Tenderness, No Swelling Neurological/Psych: Oriented x3, Normal Motor, Normal Sensation ED Course And Treatment - Laboratory Results Result Diagrams: 10/21/17 14:23 10/21/17 15:12 ECG: Interpreted By Me, Viewed By Me ECG Rhythm: Sinus Rhythm, Nonspecific Changes (ST/T wave changes) Rate From EC (BPM) O2 Sat by Pulse Oximetry: 100 (On RA) Pulse Ox Interpretation: Normal Medical Decision Making Medical Decision Making: Impression: weakness, low BP, abdominal pain - ro sepsis chf, abdominal pathology Plan: * VBG * EKG * CXR * UA * Labs * * pt reassesed b/p improved. lasix dosed. dr bonilla bedside accepts tele. cxr pleual effusion vs pneumonia. antitobics dosed. Disposition - Disposition Disposition: HOSPITALIZED Disposition Time: 19:18 Condition: FAIR Forms: [facility] ([employer]) - Clinical Impression Clinical Impression: CHF (congestive heart failure), Pleural effusion - Scribe Statement The provider has reviewed the documentation as recorded by the Scribe Osei King All medical record entries made by the Scribe were at my direction and personally dictated by me. I have reviewed the chart and agree that the record accurately reflects my personal performance of the history, physical exam, medical decision making, and the department course for this patient. I have also personally directed, reviewed, and agree with the discharge instructions and disposition. Decision To Admit - Pt Status Changed To: Hospital Disposition Of: Inpatient - Admit Certification Admit to Inpatient:: After my assessment, the patient will require hospitalization for at least two midnights. This is because of the severity of symptoms shown, intensity of services needed, and/or the medical risk in this patient being treated as an outpatient. - InPatient: Physician Admission Certification: I certify that this patient requires 2 or more midnights of care for the following reason:: pt needs iv lasix - . Bed Request Type: Telemetry Admitting Physician: Celso Bonilla Patient Diagnosis: CHF (congestive heart failure), Pleural effusion
[2017-10-21 14:29] LABS: BASO % 0.3 % (0.0-2.0); EOS # 0.1 K/uL (0.0-0.7); EOS % 0.8 % (0.0-4.0); HEMOGLOBIN 11.7 g/dL (11.0-16.0); LYMPH # 1.3 K/uL (1.0-4.3); LYMPH % 12.7 % (20.0-40.0); MEAN CORPUSCULAR HEMOGLOBIN 27.5 pg (27.0-31.0); MEAN PLATELET VOLUME 8.4 fL (7.2-11.7); MONO # 0.9 K/uL (0.0-0.8); MONO % 8.7 % (0.0-10.0); NEUT # 7.9 K/uL (1.8-7.0); NEUT % 77.5 % (50.0-75.0); RBC 4.27 Mil/uL (3.80-5.20); RED CELL DISTRIBUTION WIDTH 15.3 % (11.5-14.5); WHITE BLOOD COUNT 10.2 K/uL (4.8-10.8)
[2017-10-21 14:38] LABS: INR 1.1; PROTHROMBIN TIME 12.2 SECONDS (9.7-12.2)
[2017-10-21] MEDS ORDERED: Piperacillin/Tazobact 3.375 gm 100 ML IVPB STA (14:43)
--- NOTE | 2017-10-21 14:43 | RAD ---
PROCEDURE: CHEST RADIOGRAPH, 1 VIEW HISTORY: chest pain COMPARISON: 09/12/2017 FINDINGS: LUNGS: Hazy opacity throughout both lung bases extending up to the mid lung zones. Increased pulmonary vascular congestion. PLEURA: Bilateral pleural effusions, moderate in size. CARDIOVASCULAR: Enlarged heart OSSEOUS STRUCTURES: The osseous structures demonstrate degenerative changes. VISUALIZED UPPER ABDOMEN: Upper abdomen is suboptimally evaluated. OTHER FINDINGS: Left-sided single lead AICD. IMPRESSION: Bilateral moderate size pleural effusion with associated compressive atelectasis and/ pneumonia.
[2017-10-21 15:03] LABS: VENOUS BLOOD GAS BASE EXCESS 7.1 mmol/L (0.0-2.0); VENOUS BLOOD GAS PCO2 56 mmHg (40-60); VENOUS BLOOD GAS PO2 33 mm/Hg (30-55); VENOUS BLOOD PH 7.39 (7.32-7.43)
[2017-10-21 15:40] LABS: ALB/GLOB RATIO 0.9 (1.0-2.1); ALBUMIN 3.1 g/dL (3.5-5.0); ALT/SGPT 62 U/L (9-52); AST/SGOT 57 U/L (14-36); BLOOD UREA NITROGEN 29 mg/dL (7-17); GFR AFRICAN-AMERICAN > 60; GFR NON-AFRICAN AMERICAN > 60
[2017-10-21 15:43] LABS: B-TYPE NATRIURETIC PEPTIDE 25200 pg/mL (0-900)
[2017-10-21] MEDS ORDERED: Piperacillin/Tazobact 3.375 GM in Sodium Chloride 0.9% 100 ML IVPB ONE (16:15)
[2017-10-21] MEDS ORDERED: Vancomycin 1 gm/NS 200 ml 1 GM/200 ML BAG IVPB ONE (17:00)
[2017-10-21] MEDS ORDERED: Iodixanol 320 MG/ML 100 ML BOTTLE IV ONE (17:09)
--- NOTE | 2017-10-21 18:56 | CT ---
PROCEDURE: CT Abdomen and Pelvis with contrast HISTORY: upper abd pain COMPARISON: None. TECHNIQUE: Contrast dose: 100 mL Visipaque 320 Radiation dose: Total exam DLP = 296.37 mGy-cm. This CT exam was performed using one or more of the following dose reduction techniques: Automated exposure control, adjustment of the mA and/or kV according to patient size, and/or use of iterative reconstruction technique. FINDINGS: LOWER THORAX: Moderate bilateral pleural effusion with bilateral lower lobe subsegmental atelectasis. Cardiomegaly. AICD. LIVER: Unremarkable. No gross lesion or ductal dilatation. GALLBLADDER AND BILE DUCTS: Unremarkable. PANCREAS: Unremarkable. No gross lesion or ductal dilatation. SPLEEN: Unremarkable. ADRENALS: Unremarkable. No mass. KIDNEYS AND URETERS: 1.9 cm right upper pole renal cortical cyst. No other renal mass. No calculus or hydronephrosis. 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 VASCULATURE: Unremarkable. No aortic aneurysm. BOWEL: Unremarkable. No obstruction. No gross mural thickening. APPENDIX: Not identified. No secondary findings. PERITONEUM: Trace ascites. Nonspecific presacral edema. LYMPH NODES: Unremarkable. No enlarged lymph nodes. BLADDER: Unremarkable. REPRODUCTIVE: Unremarkable uterus BONES: No acute fracture. OTHER FINDINGS: None. IMPRESSION: Bilateral moderate pleural effusion with lower lobe subsegmental atelectasis. Cardiomegaly. AICD. Nonspecific presacral edema. No other acute abnormality.
[2017-10-21 20:31] LABS: SQUAMOUS EPITHIAL 1 /hpf (0-5); URINE BACTERIA OCC (<OCC); URINE BILIRUBIN NEGATIVE (NEGATIVE); URINE BLOOD 1+ (NEGATIVE); URINE CLARITY Hazy (Clear); URINE COLOR Yellow (YELLOW); URINE GLUCOSE (UA) NORMAL (Normal); URINE LEUKOCYTE ESTERASE 2+ Leu/uL (Negative); URINE PROTEIN NEGATIVE (NEGATIVE); URINE UROBILINOGEN NORMAL mg/dL (0.2-1.0)
[2017-10-21] MEDS: Ipratropium 0.02% Inhal Soln (0.5 mg/2.5 ml) UD IH SCH ×2 (20:33→20:35)
[2017-10-21] MEDS ORDERED: Ipratropium 0.02% Inhal Soln (0.5 mg/2.5 ml) UD IH ONE (20:40)
[2017-10-21] MEDS: (Novolin R) Insulin Human Regular 100 units/ml vial SC SCH (21:30)
--- NOTE | 2017-10-21 23:37 | CP.PCM.HP ---
History of Present Illness - History of Present Illness History of Present Illness: 77 year old female with PMHx of CHF (20% EF), HTN, recent pacemaker insertion is sent to the ED from Dr. Robledo office for evaluation of weakness , low blood pressure. Patient is also c/o abdominal pain and SOB. Patient denies fever, chills, nausea, vomit, diarrhea, headache, numbness. Present on Admission - Present on Admission Any Indicators Present on Admission: No Past Patient History - Infectious Disease Hx of Infectious Diseases: None - Past Medical History & Family History Past Medical History?: Yes - Past Social History Smoking Status: Never Smoked - CARDIAC Hx Hypercholesterolemia: Yes Hx Hypertension: Yes - PULMONARY Hx Respiratory Disorders: No - NEUROLOGICAL Hx Dementia: Yes (PER FAMILY) - HEENT Hx HEENT Problems: No - RENAL Hx Chronic Kidney Disease: No - ENDOCRINE/METABOLIC Hx Diabetes Mellitus Type 2: Yes - HEMATOLOGICAL/ONCOLOGICAL Hx Blood Disorders: Yes Hx Cancer: Yes (BREAST) Other/Comment: LEFT MASTECTOMY - INTEGUMENTARY Hx Dermatological Problems: No - MUSCULOSKELETAL/RHEUMATOLOGICAL Hx Arthritis: Yes - GASTROINTESTINAL Hx Gastrointestinal Disorders: No - GENITOURINARY/GYNECOLOGICAL Hx Genitourinary Disorders: No - PSYCHIATRIC Hx Substance Use: No - SURGICAL HISTORY Hx Surgeries: Yes Hx Section: Yes Hx Mastectomy: Yes (LEFT) Other/Comment: AICD - ANESTHESIA Hx Anesthesia: Yes Hx Anesthesia Reactions: No Meds Allergies/Adverse Reactions: Allergies Allergy/AdvReac Type Severity Reaction Status Date / Time No Known Allergies Allergy Verified 10/21/17 13:55 Results - Vital Signs Recent Vital Signs: Last Vital Signs Temp 98.1 F 10/21/17 22:39 Pulse 73 10/21/17 23:00 Resp 20 10/21/17 22:39 BP 97/67 L 10/21/17 22:39 Pulse Ox 100 10/21/17 22:39 - Labs Result Diagrams: 10/25/17 06:59 10/25/17 06:37 Labs: Laboratory Results - last 24 hr 10/21/17 10/21/17 10/21/17 14:23 14:23 14:23 WBC 10.2 RBC 4.27 Hgb 11.7 Hct 36.7 MCV 86.0 MCH 27.5 MCHC 32.0 L RDW 15.3 H Plt Count 425 H MPV 8.4 Neut % (Auto) 77.5 H Lymph % (Auto) 12.7 L [place] % (Auto) 8.7 Eos % (Auto) 0.8 Baso % (Auto) 0.3 Neut # (Auto) 7.9 H Lymph # (Auto) 1.3 [place] # (Auto) 0.9 H Eos # (Auto) 0.1 Baso # (Auto) 0.0 PT 12.2 INR 1.1 APTT 32 pO2 VBG pH VBG pCO2 VBG HCO3 VBG Total CO2 VBG O2 Sat (Calc) VBG Base Excess VBG Potassium Glucose Lactate Sodium Cancelled Potassium Cancelled Chloride Cancelled Carbon Dioxide Cancelled Anion Gap Cancelled BUN Cancelled Creatinine Cancelled Est GFR ( Amer) Cancelled Est GFR (Non-Af Amer) Cancelled POC Glucose (mg/dL) Random Glucose Cancelled Calcium Cancelled Total Bilirubin Cancelled AST Cancelled ALT Cancelled Alkaline Phosphatase Cancelled Troponin I Cancelled NT-Pro-B Natriuret Pep Cancelled Total Protein Cancelled Albumin Cancelled Globulin Cancelled Albumin/Globulin Ratio Cancelled Lipase Cancelled Venous Blood Potassium Urine Color Urine Clarity Urine pH Ur Specific [place] Urine Protein Urine Glucose (UA) Urine Ketones Urine Blood Urine Nitrate Urine Bilirubin Urine Urobilinogen Ur Leukocyte Esterase Urine WBC (Auto) Urine RBC (Auto) Ur Squamous Epith Cells Ur Transition Epith Cell Urine Bacteria Hyaline Casts 10/21/17 10/21/17 10/21/17 14:28 15:00 15:12 WBC RBC Hgb Hct MCV MCH MCHC RDW Plt Count MPV Neut % (Auto) Lymph % (Auto) [place] % (Auto) Eos % (Auto) Baso % (Auto) Neut # (Auto) Lymph # (Auto) [place] # (Auto) Eos # (Auto) Baso # (Auto) PT INR APTT pO2 33 VBG pH 7.39 VBG pCO2 56 VBG HCO3 29.5 VBG Total CO2 35.6 H VBG O2 Sat (Calc) 67.0 H VBG Base Excess 7.1 H VBG Potassium 5.8 H Glucose 189 H Lactate 1.9 Sodium 135.0 136 Potassium 5.4 H Chloride 102.0 95 L Carbon Dioxide 32 H Anion Gap 15 BUN 29 H Creatinine 0.6 L Est GFR ( Amer) > 60 Est GFR (Non-Af Amer) > 60 POC Glucose (mg/dL) 200 H Random Glucose 181 H Calcium 8.0 L Total Bilirubin 0.6 AST 57 H ALT 62 H D Alkaline Phosphatase 126 D Troponin I 0.0350 NT-Pro-B Natriuret Pep 75779 H Total Protein 6.3 Albumin 3.1 L Globulin 3.3 Albumin/Globulin Ratio 0.9 L Lipase Venous Blood Potassium 5.8 H Urine Color Urine Clarity Urine pH Ur Specific [place] Urine Protein Urine Glucose (UA) Urine Ketones Urine Blood Urine Nitrate Urine Bilirubin Urine Urobilinogen Ur Leukocyte Esterase Urine WBC (Auto) Urine RBC (Auto) Ur Squamous Epith Cells Ur Transition Epith Cell Urine Bacteria Hyaline Casts 10/21/17 10/21/17 20:23 21:20 WBC RBC Hgb Hct MCV MCH MCHC RDW Plt Count MPV Neut % (Auto) Lymph % (Auto) [place] % (Auto) Eos % (Auto) Baso % (Auto) Neut # (Auto) Lymph # (Auto) [place] # (Auto) Eos # (Auto) Baso # (Auto) PT INR APTT pO2 VBG pH VBG pCO2 VBG HCO3 VBG Total CO2 VBG O2 Sat (Calc) VBG Base Excess VBG Potassium Glucose Lactate Sodium Potassium Chloride Carbon Dioxide Anion Gap BUN Creatinine Est GFR ( Amer) Est GFR (Non-Af Amer) POC Glucose (mg/dL) 168 H Random Glucose Calcium Total Bilirubin AST ALT Alkaline Phosphatase Troponin I NT-Pro-B Natriuret Pep Total Protein Albumin Globulin Albumin/Globulin Ratio Lipase Venous Blood Potassium Urine Color Yellow Urine Clarity Hazy Urine pH 5.0 Ur Specific [place] 1.027 Urine Protein Negative Urine Glucose (UA) Normal Urine Ketones Negative Urine Blood 1+ H Urine Nitrate Negative Urine Bilirubin Negative Urine Urobilinogen Normal Ur Leukocyte Esterase 2+ H Urine WBC (Auto) 19 H Urine RBC (Auto) 8 H Ur Squamous Epith Cells 1 Ur Transition Epith Cell < 1 Urine Bacteria Occ H Hyaline Casts 3-5 H
[2017-10-22] MEDS: Ipratropium 0.02% Inhal Soln (0.5 mg/2.5 ml) UD IH SCH ×4 (01:27→19:54)
[2017-10-22] MEDS: (Novolin R) Insulin Human Regular 100 units/ml vial SC SCH ×4 (08:27→22:01)
[2017-10-22 14:08] LABS: BLOOD UREA NITROGEN 27 mg/dL (7-17); CALCIUM 8.2 mg/dl (8.6-10.4); GFR AFRICAN-AMERICAN > 60; GFR NON-AFRICAN AMERICAN > 60
--- NOTE | 2017-10-22 22:06 | CP.PCM.CON ---
History of Present Illness - History of Present Illness History of Present Illness: CC: Dyspnea on minimal exertion 77 year old female with PMHx of CHF (20% EF), HTN, recent pacemaker insertion is sent to the ED from my office for evaluation of weakness , low blood pressure. Patient is also c/o abdominal pain and SOB. Patient denies fever, chills, nausea, vomit, diarrhea, headache, numbness. Chief Complaint (Nursing): Weakness/Neurological Deficit History Per: Patient History/Exam Limitations: no limitations Onset/Duration Of Symptoms: Days Current Symptoms Are (Timing): Gone Associated Symptoms Preceding Syncopal Episode: No Predromal Symptoms (Sudden Onset) Seizure Or Post-ictal Symptoms: None Fall Associated With With Symptoms: No Recent travel outside of the [place]: No Additional History Per: Patient - Medical History PMH: Arthritis, Dementia (PER FAMILY), Diabetes, HTN, Hypercholesterolemia Denies: Chronic Kidney Disease Surgical History: No Surg Hx - [facility] Procedures FLUOROSCOPY OF MULT COR ART USING L OSM CONTRAST (09/12/17) FLUOROSCOPY OF RIGHT AND LEFT HEART USING L OSM CONTRAST (09/12/17) INSERTION OF INFUSION DEV INTO SUP VENA CAVA, PERC APPROACH (01/26/17) INTRODUCE LOCAL ANESTH IN PERIPH NRV, PLEXI, PERC (12/01/16) INTRODUCTION OF SERUM/TOX/VACCINE INTO MUSCLE, PERC APPROACH (12/01/16) MEASURE OF CARDIAC SAMPL & PRESSURE, L HEART, PERC APPROACH (09/12/17) REPOSITION RIGHT FIBULA WITH INT FIX, OPEN APPROACH (12/01/16) REPOSITION RIGHT TIBIA WITH INT FIX, OPEN APPROACH (12/01/16) Family History: States: Unknown Family Hx - Social History Hx Tobacco Use: Yes Hx Alcohol Use: Yes Hx Substance Use: No - Immunization History Hx Tetanus Toxoid Vaccination: No Hx Influenza Vaccination: Yes Hx Pneumococcal Vaccination: No Review Of Systems Except As Marked, All Systems Reviewed And Found Negative. Gastrointestinal: Positive for: Abdominal Pain Neurological: Positive for: Weakness Physical Exam - Physical Exam Appears: Non-toxic, No Acute Distress Skin: Normal Color, Warm, Dry Head: Atraumatic, Normacephalic Eye(s): bilateral: Normal Inspection Nose: No Discharge Oral Mucosa: Moist Neck: Normal ROM, Supple Chest: Symmetrical Cardiovascular: Rhythm Regular, No Murmur Respiratory: Rales (B/L bases), No Rhonchi, No Wheezing Gastrointestinal/Abdominal: Soft, Tenderness (Epigastric), Distention, No Guarding, No Rebound Extremity: Normal ROM, No Tenderness, No Swelling Neurological/Psych: Oriented x3, Normal Motor, Normal Sensation Past Patient History - Infectious Disease Hx of Infectious Diseases: None - Past Medical History & Family History Past Medical History?: Yes - Past Social History Smoking Status: Never Smoked - CARDIAC Hx Cardiac Disorders: Yes Hx Hypercholesterolemia: Yes Hx Hypertension: Yes Hx Pacemaker: Yes (L AICD) - PULMONARY Hx Respiratory Disorders: No - NEUROLOGICAL Hx Neurological Disorder: Yes Hx Dementia: Yes (PER FAMILY) - HEENT Hx HEENT Problems: No - RENAL Hx Chronic Kidney Disease: No - ENDOCRINE/METABOLIC Hx Endocrine Disorders: Yes Hx Diabetes Mellitus Type 2: Yes - HEMATOLOGICAL/ONCOLOGICAL Hx Blood Disorders: Yes Hx Cancer: Yes (BREAST) Other/Comment: LEFT MASTECTOMY - INTEGUMENTARY Hx Dermatological Problems: No - MUSCULOSKELETAL/RHEUMATOLOGICAL Hx Musculoskeletal Disorders: Yes Hx Arthritis: Yes Hx Falls: No - GASTROINTESTINAL Hx Gastrointestinal Disorders: No - GENITOURINARY/GYNECOLOGICAL Hx Genitourinary Disorders: No - PSYCHIATRIC Hx Psychophysiologic Disorder: No Hx Substance Use: No - SURGICAL HISTORY Hx Surgeries: Yes Hx Section: Yes Hx Mastectomy: Yes (LEFT) Other/Comment: AICD - ANESTHESIA Hx Anesthesia: Yes Hx Anesthesia Reactions: No Meds Allergies/Adverse Reactions: Allergies Allergy/AdvReac Type Severity Reaction Status Date / Time No Known Allergies Allergy Verified 10/21/17 13:55 - Medications Medications: Current Medications Acetaminophen (Tylenol 325mg Tab) 650 mg PO Q6 PRN PRN Reason: Pain, moderate (4-7) Last Admin: 10/22/17 01:37 Dose: 650 mg Aspirin (Aspirin Chewable) 81 mg PO DAILY [facility] Last Admin: 10/22/17 09:45 Dose: 81 mg Clopidogrel Bisulfate (Plavix) 75 mg PO DAILY [facility] Last Admin: 10/22/17 09:45 Dose: 75 mg Donepezil HCl (Aricept) 5 mg PO HS [facility] Last Admin: 10/22/17 21:35 Dose: 5 mg Furosemide (Lasix) 40 mg IVP DAILY [facility] Last Admin: 10/22/17 09:45 Dose: 40 mg Guaifenesin (Robitussin) 100 mg PO Q4H PRN PRN Reason: Cough Heparin Sodium (Porcine) (Heparin) 5,000 units SC Q12 [facility] Last Admin: 10/22/17 21:36 Dose: Not Given Ibuprofen (Motrin Tab) 400 mg PO ONCE PRN PRN Reason: Pain, Mild (1-3) Last Admin: 10/22/17 05:40 Dose: 400 mg Insulin Human Regular (Novolin R) 0 unit SC ACHS [facility] PRN Reason: Protocol Last Admin: 10/22/17 22:01 Dose: Not Given Ipratropium [place] (Atrovent) 0.5 mg IH RQ6 [facility] Last Admin: 10/22/17 19:54 Dose: 0.5 mg Mirtazapine (Remeron) 7.5 mg PO HS [facility] Last Admin: 10/22/17 21:36 Dose: 7.5 mg Rosuvastatin Calcium (Crestor) 20 mg PO HS [facility] Last Admin: 10/22/17 21:36 Dose: 20 mg Sitagliptin Phosphate (Januvia) 25 mg PO DAILY [facility] Last Admin: 10/22/17 09:45 Dose: 25 mg Results - Vital Signs Recent Vital Signs: Last Vital Signs Temp 97.4 F L 10/22/17 15:14 Pulse 76 10/22/17 15:14 Resp 20 10/22/17 15:14 BP 93/58 L 10/22/17 15:14 Pulse Ox 100 10/22/17 15:14 - Labs Result Diagrams: 10/21/17 14:23 10/22/17 13:39 Labs: Laboratory Results - last 24 hr 10/22/17 10/22/17 10/22/17 06:23 12:00 13:39 Sodium 138 Potassium 3.9 Chloride 93 L Carbon Dioxide 34 H Anion Gap 14 BUN 27 H Creatinine 0.7 Est GFR ( Amer) > 60 Est GFR (Non-Af Amer) > 60 POC Glucose (mg/dL) 140 H 162 H Random Glucose 156 H Calcium 8.2 L 10/22/17 10/22/17 16:24 21:39 Sodium Potassium Chloride Carbon Dioxide Anion Gap BUN Creatinine Est GFR ( Amer) Est GFR (Non-Af Amer) POC Glucose (mg/dL) 127 H 185 H Random Glucose Calcium Assessment & Plan - Assessment and Plan (Free Text) Assessment: Acute on Chronic systolic CHF Will Continue IV Lasix 40 daily 1. 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 CAD: Post [place] management. ASA, Plavix, Statins (B blockers and JEANNE I) 3. HTN: Controlled 4. OOB to ambulate. DVT anf GI prophylaxis
[2017-10-23] MEDS: Ipratropium 0.02% Inhal Soln (0.5 mg/2.5 ml) UD IH SCH ×4 (01:15→19:39)
[2017-10-23 07:28] LABS: HEMOGLOBIN 11.3 g/dL (11.0-16.0); MEAN CORPUSCULAR HGB CONC 32.1 g/dL (33.0-37.0); MEAN PLATELET VOLUME 8.5 fL (7.2-11.7); RBC 4.06 Mil/uL (3.80-5.20); RED CELL DISTRIBUTION WIDTH 15.3 % (11.5-14.5); WHITE BLOOD COUNT 9.2 K/uL (4.8-10.8)
[2017-10-23] MEDS: (Novolin R) Insulin Human Regular 100 units/ml vial SC SCH ×4 (07:45→21:54)
[2017-10-23 08:19] LABS: BLOOD UREA NITROGEN 30 mg/dL (7-17); CALCIUM 8.4 mg/dl (8.6-10.4); GFR AFRICAN-AMERICAN > 60; GFR NON-AFRICAN AMERICAN > 60
--- NOTE | 2017-10-23 16:02 | CP.PCM.PN ---
Subjective - Date & Time of Evaluation Date of Evaluation: 10/22/17 Time of Evaluation: 18:40 - Subjective Subjective: pt seen and examined, laying in bed, less short of breath, she is speaking in full sentences, she has slight cough Objective - Vital Signs/Intake and Output Vital Signs (last 24 hours): Temp Pulse Resp BP Pulse Ox 97.9 F 77 20 90/58 L 97 10/23/17 15:01 10/23/17 15:01 10/23/17 15:01 10/23/17 15:01 10/23/17 15:01 Intake and Output: 10/23/17 10/23/17 06:59 18:59 Intake Total 300 210 Output Total 250 Balance 50 210 - Medications Medications: Current Medications Acetaminophen (Tylenol 325mg Tab) 650 mg PO Q6 PRN PRN Reason: Pain, moderate (4-7) Last Admin: 10/22/17 01:37 Dose: 650 mg Aspirin (Aspirin Chewable) 81 mg PO DAILY [facility] Last Admin: 10/23/17 10:31 Dose: 81 mg Clopidogrel Bisulfate (Plavix) 75 mg PO DAILY [facility] Last Admin: 10/23/17 10:31 Dose: 75 mg Donepezil HCl (Aricept) 5 mg PO HS [facility] Last Admin: 10/22/17 21:35 Dose: 5 mg Furosemide (Lasix) 40 mg IVP DAILY [facility] Last Admin: 10/23/17 10:39 Dose: 40 mg Guaifenesin (Robitussin) 100 mg PO Q4H PRN PRN Reason: Cough Heparin Sodium (Porcine) (Heparin) 5,000 units SC Q12 [facility] Last Admin: 10/23/17 10:30 Dose: 5,000 units Ibuprofen (Motrin Tab) 400 mg PO ONCE PRN PRN Reason: Pain, Mild (1-3) Last Admin: 10/22/17 05:40 Dose: 400 mg Insulin Human Regular (Novolin R) 0 unit SC ACHS [facility] PRN Reason: Protocol Last Admin: 10/23/17 12:16 Dose: Not Given Ipratropium [place] (Atrovent) 0.5 mg IH RQ6 [facility] Last Admin: 10/23/17 13:21 Dose: Not Given Mirtazapine (Remeron) 7.5 mg PO HS [facility] Last Admin: 10/22/17 21:36 Dose: 7.5 mg Rosuvastatin Calcium (Crestor) 20 mg PO HS [facility] Last Admin: 10/22/17 21:36 Dose: 20 mg Sitagliptin Phosphate (Januvia) 25 mg PO DAILY [facility] Last Admin: 10/23/17 10:31 Dose: 25 mg - Labs Labs: 10/23/17 07:18 10/23/17 07:18 PT 12.2 SECONDS (9.7-12.2) 10/21/17 14:23 INR 1.1 10/21/17 14:23 APTT 32 SECONDS (21-34) 10/21/17 14:23 - Constitutional Appears: No Acute Distress - Head Exam Head Exam: ATRAUMATIC, NORMAL INSPECTION, NORMOCEPHALIC - Eye Exam Eye Exam: EOMI, Normal appearance, PERRL Pupil Exam: NORMAL ACCOMODATION, PERRL - Cardiovascular Exam Cardiovascular Exam: REGULAR RHYTHM, +S1, +S2. absent: Murmur - GI/Abdominal Exam GI & Abdominal Exam: Soft, Normal Bowel Sounds. absent: Tenderness - Rectal Exam Rectal Exam: Deferred - Extremities Exam Extremities Exam: Full ROM, Normal Capillary Refill, Normal Inspection. absent : Joint Swelling, Pedal Edema Assessment and Plan (1) CHF (congestive heart failure) Status: Acute (2) Pleural effusion Status: Acute (3) Dementia Status: Acute - Assessment and Plan (Free Text) Assessment: Acute on Chronic systolic CHF Will Continue IV Lasix 40 daily 1. 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 CAD: Post [place] management. ASA, Plavix, Statins (B blockers and JEANNE I) 3. HTN: Controlled 4. OOB to ambulate. DVT anf GI prophylaxis
--- NOTE | 2017-10-23 17:53 | CP.PCM.PN ---
Subjective - Date & Time of Evaluation Date of Evaluation: 10/23/17 Time of Evaluation: 17:00 - Subjective Subjective: pt seen and examined, laying in bed, less short of breath, she is speaking in full sentences, she has slight cough Objective - Vital Signs/Intake and Output Vital Signs (last 24 hours): Temp Pulse Resp BP Pulse Ox 97.9 F 77 20 90/58 L 97 10/23/17 15:01 10/23/17 15:01 10/23/17 15:01 10/23/17 15:01 10/23/17 15:01 Intake and Output: 10/23/17 10/23/17 06:59 18:59 Intake Total 300 210 Output Total 250 Balance 50 210 - Medications Medications: Current Medications Acetaminophen (Tylenol 325mg Tab) 650 mg PO Q6 PRN PRN Reason: Pain, moderate (4-7) Last Admin: 10/22/17 01:37 Dose: 650 mg Aspirin (Aspirin Chewable) 81 mg PO DAILY [facility] Last Admin: 10/23/17 10:31 Dose: 81 mg Clopidogrel Bisulfate (Plavix) 75 mg PO DAILY [facility] Last Admin: 10/23/17 10:31 Dose: 75 mg Donepezil HCl (Aricept) 5 mg PO HS [facility] Last Admin: 10/22/17 21:35 Dose: 5 mg Furosemide (Lasix) 40 mg IVP DAILY [facility] Last Admin: 10/23/17 10:39 Dose: 40 mg Guaifenesin (Robitussin) 100 mg PO Q4H PRN PRN Reason: Cough Heparin Sodium (Porcine) (Heparin) 5,000 units SC Q12 [facility] Last Admin: 10/23/17 10:30 Dose: 5,000 units Ibuprofen (Motrin Tab) 400 mg PO ONCE PRN PRN Reason: Pain, Mild (1-3) Last Admin: 10/22/17 05:40 Dose: 400 mg Insulin Human Regular (Novolin R) 0 unit SC ACHS [facility] PRN Reason: Protocol Last Admin: 10/23/17 17:18 Dose: Not Given Ipratropium [place] (Atrovent) 0.5 mg IH RQ6 [facility] Last Admin: 10/23/17 13:21 Dose: Not Given Mirtazapine (Remeron) 7.5 mg PO HS [facility] Last Admin: 10/22/17 21:36 Dose: 7.5 mg Rosuvastatin Calcium (Crestor) 20 mg PO HS [facility] Last Admin: 10/22/17 21:36 Dose: 20 mg Sitagliptin Phosphate (Januvia) 25 mg PO DAILY [facility] Last Admin: 10/23/17 10:31 Dose: 25 mg - Labs Labs: 10/23/17 07:18 10/23/17 07:18 PT 12.2 SECONDS (9.7-12.2) 10/21/17 14:23 INR 1.1 10/21/17 14:23 APTT 32 SECONDS (21-34) 10/21/17 14:23 Assessment and Plan (1) CHF (congestive heart failure) Status: Acute (2) Pleural effusion Status: Acute (3) Dementia Status: Acute
--- NOTE | 2017-10-23 20:36 | CP.PCM.PN ---
Subjective - Date & Time of Evaluation Date of Evaluation: 10/23/17 Time of Evaluation: 14:05 - Subjective Subjective: Patient with improved brething Admitted for acute on Chronic systolic CHF Will continue Lasix Review Of Systems Except As Marked, All Systems Reviewed And Found Negative. Gastrointestinal: Positive for: Abdominal Pain Neurological: Positive for: Weakness Physical Exam - Physical Exam Appears: Non-toxic, No Acute Distress Skin: Normal Color, Warm, Dry Head: Atraumatic, Normacephalic Eye(s): bilateral: Normal Inspection Nose: No Discharge Oral Mucosa: Moist Neck: Normal ROM, Supple Chest: Symmetrical Cardiovascular: Rhythm Regular, No Murmur Respiratory: Rales (B/L bases), No Rhonchi, No Wheezing Gastrointestinal/Abdominal: Soft, Tenderness (Epigastric), Distention, No Guarding, No Rebound Extremity: Normal ROM, No Tenderness, No Swelling Neurological/Psych: Oriented x3, Normal Motor, Normal Sensation Objective - Vital Signs/Intake and Output Vital Signs (last 24 hours): Temp Pulse Resp BP Pulse Ox 97.9 F 77 20 90/58 L 97 10/23/17 15:01 10/23/17 15:01 10/23/17 15:01 10/23/17 15:01 10/23/17 15:01 Intake and Output: 10/23/17 10/24/17 18:59 06:59 Intake Total 210 Balance 210 - Medications Medications: Current Medications Acetaminophen (Tylenol 325mg Tab) 650 mg PO Q6 PRN PRN Reason: Pain, moderate (4-7) Last Admin: 10/22/17 01:37 Dose: 650 mg Aspirin (Aspirin Chewable) 81 mg PO DAILY [facility] Last Admin: 10/23/17 10:31 Dose: 81 mg Clopidogrel Bisulfate (Plavix) 75 mg PO DAILY [facility] Last Admin: 10/23/17 10:31 Dose: 75 mg Donepezil HCl (Aricept) 5 mg PO HS [facility] Last Admin: 10/22/17 21:35 Dose: 5 mg Furosemide (Lasix) 40 mg IVP DAILY [facility] Last Admin: 10/23/17 10:39 Dose: 40 mg Guaifenesin (Robitussin) 100 mg PO Q4H PRN PRN Reason: Cough Heparin Sodium (Porcine) (Heparin) 5,000 units SC Q12 [facility] Last Admin: 10/23/17 10:30 Dose: 5,000 units Ibuprofen (Motrin Tab) 400 mg PO ONCE PRN PRN Reason: Pain, Mild (1-3) Last Admin: 10/22/17 05:40 Dose: 400 mg Insulin Human Regular (Novolin R) 0 unit SC ACHS [facility] PRN Reason: Protocol Last Admin: 10/23/17 17:18 Dose: Not Given Ipratropium [place] (Atrovent) 0.5 mg IH RQ6 [facility] Last Admin: 10/23/17 19:39 Dose: 0.5 mg Mirtazapine (Remeron) 7.5 mg PO HS [facility] Last Admin: 10/22/17 21:36 Dose: 7.5 mg Rosuvastatin Calcium (Crestor) 20 mg PO HS [facility] Last Admin: 10/22/17 21:36 Dose: 20 mg Sitagliptin Phosphate (Januvia) 25 mg PO DAILY [facility] Last Admin: 10/23/17 10:31 Dose: 25 mg - Labs Labs: 10/23/17 07:18 10/23/17 07:18 PT 12.2 SECONDS (9.7-12.2) 10/21/17 14:23 INR 1.1 10/21/17 14:23 APTT 32 SECONDS (21-34) 10/21/17 14:23 Assessment and Plan - Assessment and Plan (Free Text) Assessment: Acute on Chronic Systolic CHF 10/25: Continue Lasix 40mg IVP. Will consider candidacy for ICD placement. Echo 09/14/17- EF 10-15%; diastolic dysfunction, mild AR/MR; pulm HTN, pulm valve regurg. see full report. Trop negative x1 BNP 25,000 Will continue IV Lasix [address] abd/pelv- moderate b/l pleural effusions Severe Ischemic CMP Entire anterior, septal and apical segments are non viable s/p AICD CAD Post [place] management. Continue ASA, Plavix, Statins (B blockers and JEANNE I) HTN Controlled, monitor
[2017-10-24] MEDS: Ipratropium 0.02% Inhal Soln (0.5 mg/2.5 ml) UD IH SCH ×4 (01:07→19:00)
[2017-10-24] MEDS: (Novolin R) Insulin Human Regular 100 units/ml vial SC SCH ×4 (07:16→21:17)
--- NOTE | 2017-10-24 13:07 | CP.PCM.PN ---
Subjective - Date & Time of Evaluation Date of Evaluation: 10/24/17 Time of Evaluation: 19:00 - Subjective Subjective: Pt is less short of breath, slight cough, no fever, no vomitting Objective - Vital Signs/Intake and Output Vital Signs (last 24 hours): Temp Pulse Resp BP Pulse Ox 98.0 F 75 20 121/81 100 10/24/17 07:10 10/24/17 11:45 10/24/17 07:10 10/24/17 10:35 10/24/17 07:10 - Medications Medications: Current Medications Acetaminophen (Tylenol 325mg Tab) 650 mg PO Q6 PRN PRN Reason: Pain, moderate (4-7) Last Admin: 10/22/17 01:37 Dose: 650 mg Aspirin (Aspirin Chewable) 81 mg PO DAILY [facility] Last Admin: 10/24/17 10:35 Dose: 81 mg Clopidogrel Bisulfate (Plavix) 75 mg PO DAILY [facility] Last Admin: 10/24/17 10:35 Dose: 75 mg Donepezil HCl (Aricept) 5 mg PO HS [facility] Last Admin: 10/23/17 22:51 Dose: Not Given Furosemide (Lasix) 40 mg IVP DAILY [facility] Last Admin: 10/24/17 10:35 Dose: 40 mg Guaifenesin (Robitussin) 100 mg PO Q4H PRN PRN Reason: Cough Heparin Sodium (Porcine) (Heparin) 5,000 units SC Q12 [facility] Last Admin: 10/24/17 10:35 Dose: 5,000 units Ibuprofen (Motrin Tab) 400 mg PO ONCE PRN PRN Reason: Pain, Mild (1-3) Last Admin: 10/22/17 05:40 Dose: 400 mg Insulin Human Regular (Novolin R) 0 unit SC ACHS [facility] PRN Reason: Protocol Last Admin: 10/24/17 11:37 Dose: Not Given Ipratropium [place] (Atrovent) 0.5 mg IH RQ6 [facility] Last Admin: 10/24/17 07:18 Dose: Not Given Mirtazapine (Remeron) 7.5 mg PO HS [facility] Last Admin: 10/23/17 22:57 Dose: Not Given Rosuvastatin Calcium (Crestor) 20 mg PO HS [facility] Last Admin: 10/23/17 22:57 Dose: Not Given Sitagliptin Phosphate (Januvia) 25 mg PO DAILY [facility] Last Admin: 10/24/17 10:35 Dose: 25 mg - Labs Labs: 10/23/17 07:18 10/23/17 07:18 PT 12.2 SECONDS (9.7-12.2) 10/21/17 14:23 INR 1.1 10/21/17 14:23 APTT 32 SECONDS (21-34) 10/21/17 14:23 - Constitutional Appears: No Acute Distress - Head Exam Head Exam: ATRAUMATIC, NORMAL INSPECTION, NORMOCEPHALIC - Eye Exam Eye Exam: EOMI, Normal appearance, PERRL Pupil Exam: NORMAL ACCOMODATION, PERRL - Respiratory Exam Respiratory Exam: Decreased Breath Sounds, Rhonchi, Wheezes - Cardiovascular Exam Cardiovascular Exam: REGULAR RHYTHM, +S1, +S2. absent: Murmur Assessment and Plan (1) CHF (congestive heart failure) Assessment & Plan: med managment intake out put Status: Acute (2) Pleural effusion Status: Acute (3) Dementia Status: Acute
[2017-10-25] MEDS: Ipratropium 0.02% Inhal Soln (0.5 mg/2.5 ml) UD IH SCH ×5 (01:40→20:30)
--- NOTE | 2017-10-25 06:59 | CP.PCM.PN ---
Subjective - Date & Time of Evaluation Date of Evaluation: 10/24/17 Time of Evaluation: 20:10 - Subjective Subjective: Patient seen and evaluated Feeling better in terms of dyspnea Intremittent confusion episodes Will continue IV Lasix 40 daily Review Of Systems Except As Marked, All Systems Reviewed And Found Negative. Gastrointestinal: Positive for: Abdominal Pain Neurological: Positive for: Weakness Physical Exam - Physical Exam Appears: Non-toxic, No Acute Distress Skin: Normal Color, Warm, Dry Head: Atraumatic, Normacephalic Eye(s): bilateral: Normal Inspection Nose: No Discharge Oral Mucosa: Moist Neck: Normal ROM, Supple Chest: Symmetrical Cardiovascular: Rhythm Regular, No Murmur Respiratory: Rales (B/L bases), No Rhonchi, No Wheezing Gastrointestinal/Abdominal: Soft, Tenderness (Epigastric), Distention, No Guarding, No Rebound Extremity: Normal ROM, No Tenderness, No Swelling Neurological/Psych: Oriented x3, Normal Motor, Normal Sensation Objective - Vital Signs/Intake and Output Vital Signs (last 24 hours): Temp Pulse Resp BP Pulse Ox 97.7 F 81 20 105/72 99 10/24/17 23:25 10/24/17 23:25 10/24/17 23:25 10/24/17 23:25 10/24/17 23:25 Intake and Output: 10/24/17 10/25/17 18:59 06:59 Intake Total 300 100 Balance 300 100 - Medications Medications: Current Medications Acetaminophen (Tylenol 325mg Tab) 650 mg PO Q6 PRN PRN Reason: Pain, moderate (4-7) Last Admin: 10/22/17 01:37 Dose: 650 mg Aspirin (Aspirin Chewable) 81 mg PO DAILY [facility] Last Admin: 10/24/17 10:35 Dose: 81 mg Clopidogrel Bisulfate (Plavix) 75 mg PO DAILY [facility] Last Admin: 10/24/17 10:35 Dose: 75 mg Donepezil HCl (Aricept) 5 mg PO HS [facility] Last Admin: 10/24/17 21:07 Dose: 5 mg Furosemide (Lasix) 40 mg IVP DAILY [facility] Last Admin: 10/24/17 10:35 Dose: 40 mg Guaifenesin (Robitussin) 100 mg PO Q4H PRN PRN Reason: Cough Heparin Sodium (Porcine) (Heparin) 5,000 units SC Q12 [facility] Last Admin: 10/24/17 21:07 Dose: 5,000 units Ibuprofen (Motrin Tab) 400 mg PO ONCE PRN PRN Reason: Pain, Mild (1-3) Last Admin: 10/22/17 05:40 Dose: 400 mg Insulin Human Regular (Novolin R) 0 unit SC ACHS [facility] PRN Reason: Protocol Last Admin: 10/24/17 21:17 Dose: Not Given Ipratropium [place] (Atrovent) 0.5 mg IH RQ6 [facility] Last Admin: 10/25/17 01:47 Dose: 0.5 mg Lorazepam (Ativan) 0.5 mg PO Q12 PRN PRN Reason: Anxiety Last Admin: 10/24/17 21:12 Dose: 0.5 mg Mirtazapine (Remeron) 7.5 mg PO HS [facility] Last Admin: 10/24/17 21:07 Dose: 7.5 mg Rosuvastatin Calcium (Crestor) 20 mg PO HS [facility] Last Admin: 10/24/17 21:06 Dose: 20 mg Sitagliptin Phosphate (Januvia) 25 mg PO DAILY [facility] Last Admin: 10/24/17 10:35 Dose: 25 mg - Labs Labs: 10/23/17 07:18 10/23/17 07:18 PT 12.2 SECONDS (9.7-12.2) 10/21/17 14:23 INR 1.1 10/21/17 14:23 APTT 32 SECONDS (21-34) 10/21/17 14:23 Assessment and Plan - Assessment and Plan (Free Text) Assessment: Acute on Chronic Systolic CHF 10/25: Continue Lasix 40mg IVP. Will consider candidacy for ICD placement. Echo 09/14/17- EF 10-15%; diastolic dysfunction, mild AR/MR; pulm HTN, pulm valve regurg. see full report. 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 Continue ASA, Plavix, Statins (B blockers and JEANNE I) HTN Controlled, monitor
[2017-10-25] MEDS: (Novolin R) Insulin Human Regular 100 units/ml vial SC SCH ×4 (07:25→21:09)
[2017-10-25 08:10] LABS: BLOOD UREA NITROGEN 22 mg/dL (7-17); CALCIUM 8.1 mg/dl (8.6-10.4); GFR AFRICAN-AMERICAN > 60; GFR NON-AFRICAN AMERICAN > 60
[2017-10-25 08:36] LABS: HEMOGLOBIN 11.4 g/dL (11.0-16.0); MEAN CELL VOLUME 86.7 fL (81.0-99.0); MEAN CORPUSCULAR HEMOGLOBIN 27.9 pg (27.0-31.0); MEAN CORPUSCULAR HGB CONC 32.1 g/dL (33.0-37.0); MEAN PLATELET VOLUME 8.8 fL (7.2-11.7); RBC 4.11 Mil/uL (3.80-5.20); WHITE BLOOD COUNT 7.9 K/uL (4.8-10.8)
[2017-10-25 08:42] LABS: B-TYPE NATRIURETIC PEPTIDE 20900 pg/mL (0-900)
--- NOTE | 2017-10-25 11:34 | CP.PCM.PN ---
<Tony Alberts - Last Filed: 10/25/17 16:32> Subjective - Date & Time of Evaluation Date of Evaluation: 10/25/17 Time of Evaluation: 08:10 - Subjective Subjective: PGY2 Cardiology Progress Note for Dr. Robledo Patient seen and examined at bedside. No acute distress. Patient is AAOx3. She denies chest pain, SOB, or LE edema. She does c/o persistent dizziness. 12- point review of systems is otherwise negative without any additional acute complaints. Objective - Vital Signs/Intake and Output Vital Signs (last 24 hours): Temp Pulse Resp BP Pulse Ox 98.0 F 73 18 108/73 98 10/25/17 07:05 10/25/17 10:41 10/25/17 07:05 10/25/17 10:41 10/25/17 07:05 Intake and Output: 10/25/17 10/25/17 06:59 18:59 Intake Total 100 Balance 100 - Medications Medications: Current Medications Acetaminophen (Tylenol 325mg Tab) 650 mg PO Q6 PRN PRN Reason: Pain, moderate (4-7) Last Admin: 10/22/17 01:37 Dose: 650 mg Aspirin (Aspirin Chewable) 81 mg PO DAILY [facility] Last Admin: 10/25/17 10:39 Dose: 81 mg Clopidogrel Bisulfate (Plavix) 75 mg PO DAILY [facility] Last Admin: 10/25/17 10:39 Dose: 75 mg Donepezil HCl (Aricept) 5 mg PO HS [facility] Last Admin: 10/24/17 21:07 Dose: 5 mg Furosemide (Lasix) 40 mg IVP DAILY [facility] Last Admin: 10/25/17 10:39 Dose: 40 mg Guaifenesin (Robitussin) 100 mg PO Q4H PRN PRN Reason: Cough Ibuprofen (Motrin Tab) 400 mg PO ONCE PRN PRN Reason: Pain, Mild (1-3) Last Admin: 10/22/17 05:40 Dose: 400 mg Insulin Human Regular (Novolin R) 0 unit SC ACHS [facility] PRN Reason: Protocol Last Admin: 10/25/17 07:25 Dose: Not Given Ipratropium [place] (Atrovent) 0.5 mg IH RQ6 [facility] Last Admin: 10/25/17 07:48 Dose: 0.5 mg Lorazepam (Ativan) 0.5 mg PO Q12 PRN PRN Reason: Anxiety Last Admin: 10/24/17 21:12 Dose: 0.5 mg Mirtazapine (Remeron) 7.5 mg PO HS [facility] Last Admin: 10/24/17 21:07 Dose: 7.5 mg Rosuvastatin Calcium (Crestor) 20 mg PO HS [facility] Last Admin: 10/24/17 21:06 Dose: 20 mg Sitagliptin Phosphate (Januvia) 25 mg PO DAILY [facility] Last Admin: 10/25/17 10:39 Dose: 25 mg - Labs Labs: 10/25/17 06:59 10/25/17 06:37 PT 12.2 SECONDS (9.7-12.2) 10/21/17 14:23 INR 1.1 10/21/17 14:23 APTT 32 SECONDS (21-34) 10/21/17 14:23 - Additional Findings Additional findings: - Constitutional Appears: No Acute Distress - Head Exam Head Exam: ATRAUMATIC, NORMAL INSPECTION, NORMOCEPHALIC - Eye Exam Eye Exam: EOMI, Normal appearance, PERRL Pupil Exam: NORMAL ACCOMODATION, PERRL - Cardiovascular Exam Cardiovascular Exam: REGULAR RHYTHM, +S1, +S2. absent: Murmur - GI/Abdominal Exam GI & Abdominal Exam: Soft, Normal Bowel Sounds. absent: Tenderness - Rectal Exam Rectal Exam: Deferred - Extremities Exam Extremities Exam: Full ROM, Normal Capillary Refill, Normal Inspection. absent : Joint Swelling, Pedal Edema - Neurological Exam Neurological exam: Alert - Psychiatric Exam Psychiatric exam: Normal Affect - Skin Skin Exam: Warm Assessment and Plan - Assessment and Plan (Free Text) Assessment: Acute on Chronic Systolic CHF 10/25: Continue Lasix 40mg IVP. Will consider candidacy for ICD placement. Echo 09/14/17- EF 10-15%; diastolic dysfunction, mild AR/MR; pulm HTN, pulm valve regurg. see full report. 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 Continue ASA, Plavix, Statins (B blockers and JEANNE I) HTN Controlled, monitor Case Discussed with Dr. Venkat Alberts, PGY2 <Kalen Robledo - Last Filed: 10/25/17 23:12> Objective - Vital Signs/Intake and Output Vital Signs (last 24 hours): Temp Pulse Resp BP Pulse Ox 97.6 F 78 20 96/61 L 94 L 10/25/17 15:01 10/25/17 22:46 10/25/17 15:01 10/25/17 15:01 10/25/17 15:01 - Medications Medications: Current Medications Acetaminophen (Tylenol 325mg Tab) 650 mg PO Q6 PRN PRN Reason: Pain, moderate (4-7) Last Admin: 10/22/17 01:37 Dose: 650 mg Aspirin (Aspirin Chewable) 81 mg PO DAILY [facility] Last Admin: 10/25/17 10:39 Dose: 81 mg Clopidogrel Bisulfate (Plavix) 75 mg PO DAILY [facility] Last Admin: 10/25/17 10:39 Dose: 75 mg Donepezil HCl (Aricept) 10 mg PO HS [facility] Furosemide (Lasix) 40 mg IVP DAILY [facility] Last Admin: 10/25/17 10:39 Dose: 40 mg Guaifenesin (Robitussin) 100 mg PO Q4H PRN PRN Reason: Cough Ibuprofen (Motrin Tab) 400 mg PO ONCE PRN PRN Reason: Pain, Mild (1-3) Last Admin: 10/22/17 05:40 Dose: 400 mg Insulin Human Regular (Novolin R) 0 unit SC ACHS [facility] PRN Reason: Protocol Last Admin: 10/25/17 21:09 Dose: Not Given Ipratropium [place] (Atrovent) 0.5 mg IH RQ6 [facility] Last Admin: 10/25/17 13:10 Dose: Not Given Lorazepam (Ativan) 0.5 mg PO Q12 PRN PRN Reason: Anxiety Last Admin: 10/24/17 21:12 Dose: 0.5 mg Mirtazapine (Remeron) 15 mg PO HS [facility] Rosuvastatin Calcium (Crestor) 10 mg PO HS [facility] Sitagliptin Phosphate (Januvia) 25 mg PO DAILY [facility] Last Admin: 10/25/17 10:39 Dose: 25 mg - Labs Labs: 10/25/17 06:59 10/25/17 06:37 PT 12.2 SECONDS (9.7-12.2) 10/21/17 14:23 INR 1.1 10/21/17 14:23 APTT 32 SECONDS (21-34) 10/21/17 14:23 Assessment and Plan - Assessment and Plan (Free Text) Plan: Patient seen and evaluated Plan of care d/w the medical review specialist and as documented
--- NOTE | 2017-10-25 12:59 | CARD ---
APPROVED REPORT EKG Measurement Heart [id number] <Conclusion> Normal sinus rhythm Possible Left atrial enlargement Left anterior fascicular block Anteroseptal infarct, age undetermined T wave abnormality, consider lateral ischemia Abnormal ECG
--- NOTE | 2017-10-25 17:11 | CP.PCM.PN ---
Subjective - Date & Time of Evaluation Date of Evaluation: 10/25/17 Time of Evaluation: 09:00 - Subjective Subjective: pt is doing well, she is less short of breath, less cough, less wheezing Objective - Vital Signs/Intake and Output Vital Signs (last 24 hours): Temp Pulse Resp BP Pulse Ox 97.6 F 78 20 96/61 L 94 L 10/25/17 15:01 10/25/17 16:41 10/25/17 15:01 10/25/17 15:01 10/25/17 15:01 Intake and Output: 10/25/17 10/25/17 06:59 18:59 Intake Total 100 Balance 100 - Medications Medications: Current Medications Acetaminophen (Tylenol 325mg Tab) 650 mg PO Q6 PRN PRN Reason: Pain, moderate (4-7) Last Admin: 10/22/17 01:37 Dose: 650 mg Aspirin (Aspirin Chewable) 81 mg PO DAILY [facility] Last Admin: 10/25/17 10:39 Dose: 81 mg Clopidogrel Bisulfate (Plavix) 75 mg PO DAILY [facility] Last Admin: 10/25/17 10:39 Dose: 75 mg Donepezil HCl (Aricept) 5 mg PO HS [facility] Last Admin: 10/24/17 21:07 Dose: 5 mg Furosemide (Lasix) 40 mg IVP DAILY [facility] Last Admin: 10/25/17 10:39 Dose: 40 mg Guaifenesin (Robitussin) 100 mg PO Q4H PRN PRN Reason: Cough Ibuprofen (Motrin Tab) 400 mg PO ONCE PRN PRN Reason: Pain, Mild (1-3) Last Admin: 10/22/17 05:40 Dose: 400 mg Insulin Human Regular (Novolin R) 0 unit SC [facility] PRN Reason: Protocol Last Admin: 10/25/17 16:40 Dose: Not Given Ipratropium [place] (Atrovent) 0.5 mg IH RQ6 [facility] Last Admin: 10/25/17 13:10 Dose: Not Given Lorazepam (Ativan) 0.5 mg PO Q12 PRN PRN Reason: Anxiety Last Admin: 10/24/17 21:12 Dose: 0.5 mg Mirtazapine (Remeron) 7.5 mg PO HS [facility] Last Admin: 10/24/17 21:07 Dose: 7.5 mg Rosuvastatin Calcium (Crestor) 20 mg PO HS [facility] Last Admin: 10/24/17 21:06 Dose: 20 mg Sitagliptin Phosphate (Januvia) 25 mg PO DAILY [facility] Last Admin: 10/25/17 10:39 Dose: 25 mg - Labs Labs: 10/25/17 06:59 10/25/17 06:37 PT 12.2 SECONDS (9.7-12.2) 10/21/17 14:23 INR 1.1 10/21/17 14:23 APTT 32 SECONDS (21-34) 10/21/17 14:23 - Constitutional Appears: No Acute Distress - Head Exam Head Exam: ATRAUMATIC, NORMAL INSPECTION, NORMOCEPHALIC - Eye Exam Eye Exam: EOMI, Normal appearance, PERRL Pupil Exam: NORMAL ACCOMODATION, PERRL - Respiratory Exam Respiratory Exam: Decreased Breath Sounds, Rales, Rhonchi - Cardiovascular Exam Cardiovascular Exam: REGULAR RHYTHM, +S1, +S2. absent: Murmur - GI/Abdominal Exam GI & Abdominal Exam: Soft, Normal Bowel Sounds. absent: Tenderness Assessment and Plan (1) CHF (congestive heart failure) Status: Acute (2) Pleural effusion Status: Acute (3) Dementia Status: Acute
[2017-10-26] MEDS: Ipratropium 0.02% Inhal Soln (0.5 mg/2.5 ml) UD IH SCH ×4 (01:38→19:35)
[2017-10-26] MEDS: (Novolin R) Insulin Human Regular 100 units/ml vial SC SCH ×4 (07:46→22:04)
--- NOTE | 2017-10-26 09:23 | CP.PCM.PN ---
<Tony Alberts - Last Filed: 10/26/17 16:48> Subjective - Date & Time of Evaluation Date of Evaluation: 10/26/17 Time of Evaluation: 09:05 - Subjective Subjective: PGY2 Cardiology Progress Note for Dr. Robledo Patient seen and examined at bedside. No acute distress. Patient is AAOx3. She states she had a "pacemaker" placed in 2017, but she is unsure what type, by which doctor, at which hospital, and she also lost the card that was given to her (I also spoke to both of her sons, who were not sure of the details). Further documentation review will be performed to uncover this information. She denies chest pain, SOB, or LE edema. She does c/o persistent dizziness. 12- point review of systems is otherwise negative without any additional acute complaints. Objective - Vital Signs/Intake and Output Vital Signs (last 24 hours): Temp Pulse Resp BP Pulse Ox 97.7 F 76 20 96/62 L 100 10/26/17 07:00 10/26/17 07:23 10/26/17 07:00 10/26/17 07:00 10/26/17 07:00 - Medications Medications: Current Medications Acetaminophen (Tylenol 325mg Tab) 650 mg PO Q6 PRN PRN Reason: Pain, moderate (4-7) Last Admin: 10/22/17 01:37 Dose: 650 mg Aspirin (Aspirin Chewable) 81 mg PO DAILY [facility] Last Admin: 10/25/17 10:39 Dose: 81 mg Clopidogrel Bisulfate (Plavix) 75 mg PO DAILY [facility] Last Admin: 10/25/17 10:39 Dose: 75 mg Donepezil HCl (Aricept) 10 mg PO HS [facility] Furosemide (Lasix) 40 mg IVP DAILY [facility] Last Admin: 10/25/17 10:39 Dose: 40 mg Guaifenesin (Robitussin) 100 mg PO Q4H PRN PRN Reason: Cough Ibuprofen (Motrin Tab) 400 mg PO ONCE PRN PRN Reason: Pain, Mild (1-3) Last Admin: 10/22/17 05:40 Dose: 400 mg Insulin Human Regular (Novolin R) 0 unit SC ACHS [facility] PRN Reason: Protocol Last Admin: 10/26/17 07:46 Dose: Not Given Ipratropium [place] (Atrovent) 0.5 mg IH RQ6 [facility] Last Admin: 10/26/17 08:19 Dose: Not Given Lorazepam (Ativan) 0.5 mg PO Q12 PRN PRN Reason: Anxiety Last Admin: 10/24/17 21:12 Dose: 0.5 mg Mirtazapine (Remeron) 15 mg PO HS [facility] Rosuvastatin Calcium (Crestor) 10 mg PO HS [facility] Sitagliptin Phosphate (Januvia) 25 mg PO DAILY [facility] Last Admin: 10/25/17 10:39 Dose: 25 mg - Labs Labs: 10/25/17 06:59 10/25/17 06:37 PT 12.2 SECONDS (9.7-12.2) 10/21/17 14:23 INR 1.1 10/21/17 14:23 APTT 32 SECONDS (21-34) 10/21/17 14:23 - Additional Findings Additional findings: - Constitutional Appears: No Acute Distress - Head Exam Head Exam: ATRAUMATIC, NORMAL INSPECTION, NORMOCEPHALIC - Eye Exam Eye Exam: EOMI, Normal appearance, PERRL Pupil Exam: NORMAL ACCOMODATION, PERRL - Cardiovascular Exam Cardiovascular Exam: REGULAR RHYTHM, +S1, +S2. absent: Murmur Note: device palpated at left chest wall; based on size, likely ICD. - GI/Abdominal Exam GI & Abdominal Exam: Soft, Normal Bowel Sounds. absent: Tenderness - Rectal Exam Rectal Exam: Deferred - Extremities Exam Extremities Exam: Full ROM, Normal Capillary Refill, Normal Inspection. absent : Joint Swelling, Pedal Edema - Neurological Exam Neurological exam: Alert - Psychiatric Exam Psychiatric exam: Normal Affect - Skin Skin Exam: Warm Assessment and Plan - Assessment and Plan (Free Text) Assessment: Acute on Chronic Systolic CHF 10/26: patient became mildly hypotensive today at BP 96/62. Lasix decreased to 20mg IVP. -Based upon palpation, device at L chest wall is likely an ICD. Further investigating will be performed to uncover the type of device, company, and rep contact information. -She states she had a "pacemaker" placed in 2016, but she is unsure what type , by which doctor, at which hospital, and she also lost the card that was given to her (I also spoke to both of her sons, who were not sure of the details). 10/25: Continue Lasix 40mg IVP. Echo 09/14/17- EF 10-15%; diastolic dysfunction, mild AR/MR; pulm HTN, pulm valve regurg. see full report. 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 Continue ASA, Plavix, Statins (B blockers and JEANNE I) HTN 10/26: patient became mildly hypotensive today at BP 96/62. Lasix decreased to 20mg IVP. Controlled, monitor Case Discussed with Dr. Venkat Alberts, PGY2 <Kalen Robledo - Last Filed: 10/26/17 22:18> Objective - Vital Signs/Intake and Output Vital Signs (last 24 hours): Temp Pulse Resp BP Pulse Ox 97.6 F 83 20 100/68 98 10/26/17 16:00 10/26/17 16:07 10/26/17 16:00 10/26/17 16:00 10/26/17 16:00 Intake and Output: 10/26/17 10/27/17 18:59 06:59 Intake Total 300 Output Total 400 Balance -100 - Medications Medications: Current Medications Acetaminophen (Tylenol 325mg Tab) 650 mg PO Q6 PRN PRN Reason: Pain, moderate (4-7) Last Admin: 10/22/17 01:37 Dose: 650 mg Aspirin (Aspirin Chewable) 81 mg PO DAILY [facility] Last Admin: 10/26/17 10:09 Dose: 81 mg Clopidogrel Bisulfate (Plavix) 75 mg PO DAILY [facility] Last Admin: 10/26/17 10:09 Dose: 75 mg Donepezil HCl (Aricept) 10 mg PO HS [facility] Last Admin: 10/26/17 21:37 Dose: 10 mg Furosemide (Lasix) 20 mg IVP DAILY [facility] Last Admin: 10/26/17 14:18 Dose: 20 mg Guaifenesin (Robitussin) 100 mg PO Q4H PRN PRN Reason: Cough Ibuprofen (Motrin Tab) 400 mg PO ONCE PRN PRN Reason: Pain, Mild (1-3) Last Admin: 10/22/17 05:40 Dose: 400 mg Insulin Human Regular (Novolin R) 0 unit SC ACHS [facility] PRN Reason: Protocol Last Admin: 03/28/18 22:04 Dose: Not Given Ipratropium [place] (Atrovent) 0.5 mg IH RQ6 [facility] Last Admin: 10/26/17 19:35 Dose: Not Given Lorazepam (Ativan) 0.5 mg PO Q12 PRN PRN Reason: Anxiety Last Admin: 10/24/17 21:12 Dose: 0.5 mg Mirtazapine (Remeron) 15 mg PO HS [facility] Last Admin: 10/26/17 21:37 Dose: 15 mg Rosuvastatin Calcium (Crestor) 10 mg PO HS [facility] Last Admin: 10/26/17 21:37 Dose: 10 mg Sitagliptin Phosphate (Januvia) 25 mg PO DAILY [facility] Last Admin: 10/26/17 10:09 Dose: 25 mg - Labs Labs: 10/25/17 06:59 10/25/17 06:37 PT 12.2 SECONDS (9.7-12.2) 10/21/17 14:23 INR 1.1 10/21/17 14:23 APTT 32 SECONDS (21-34) 10/21/17 14:23 Assessment and Plan - Assessment and Plan (Free Text) Plan: Patient seen and evaluated Plan of care d/w the certified medical biller and as documented
--- NOTE | 2017-10-26 23:15 | CP.PCM.PN ---
Subjective - Date & Time of Evaluation Date of Evaluation: 10/26/17 Time of Evaluation: 18:40 - Subjective Subjective: Pt seen and examined today, less short of breath, feeling better Objective - Vital Signs/Intake and Output Vital Signs (last 24 hours): Temp Pulse Resp BP Pulse Ox 97.6 F 83 20 100/68 98 10/26/17 16:00 10/26/17 16:07 10/26/17 16:00 10/26/17 16:00 10/26/17 16:00 Intake and Output: 10/26/17 10/27/17 18:59 06:59 Intake Total 300 Output Total 400 Balance -100 - Medications Medications: Current Medications Acetaminophen (Tylenol 325mg Tab) 650 mg PO Q6 PRN PRN Reason: Pain, moderate (4-7) Last Admin: 10/22/17 01:37 Dose: 650 mg Aspirin (Aspirin Chewable) 81 mg PO DAILY [facility] Last Admin: 10/26/17 10:09 Dose: 81 mg Clopidogrel Bisulfate (Plavix) 75 mg PO DAILY [facility] Last Admin: 10/26/17 10:09 Dose: 75 mg Donepezil HCl (Aricept) 10 mg PO [facility] Last Admin: 10/26/17 21:37 Dose: 10 mg Furosemide (Lasix) 20 mg IVP DAILY [facility] Last Admin: 10/26/17 14:18 Dose: 20 mg Guaifenesin (Robitussin) 100 mg PO Q4H PRN PRN Reason: Cough Ibuprofen (Motrin Tab) 400 mg PO ONCE PRN PRN Reason: Pain, Mild (1-3) Last Admin: 10/22/17 05:40 Dose: 400 mg Insulin Human Regular (Novolin R) [address] [facility] PRN Reason: Protocol Last Admin: 10/26/17 22:04 Dose: Not Given Ipratropium [place] (Atrovent) 0.5 mg IH RQ6 [facility] Last Admin: 10/26/17 19:35 Dose: Not Given Lorazepam (Ativan) 0.5 mg PO Q12 PRN PRN Reason: Anxiety Last Admin: 10/24/17 21:12 Dose: 0.5 mg Mirtazapine (Remeron) 15 mg PO [facility] Last Admin: 10/26/17 21:37 Dose: 15 mg Rosuvastatin Calcium (Crestor) 10 mg PO [facility] Last Admin: 10/26/17 21:37 Dose: 10 mg Sitagliptin Phosphate (Januvia) 25 mg PO DAILY [facility] Last Admin: 10/26/17 10:09 Dose: 25 mg - Labs Labs: 10/25/17 06:59 10/25/17 06:37 PT 12.2 SECONDS (9.7-12.2) 10/21/17 14:23 INR 1.1 10/21/17 14:23 APTT 32 SECONDS (21-34) 10/21/17 14:23 - Eye Exam Eye Exam: EOMI, Normal appearance, PERRL Pupil Exam: NORMAL ACCOMODATION, PERRL - Respiratory Exam Respiratory Exam: Clear to Ausculation Bilateral, NORMAL BREATHING PATTERN - Cardiovascular Exam Cardiovascular Exam: REGULAR RHYTHM, +S1, +S2. absent: Murmur - GI/Abdominal Exam GI & Abdominal Exam: Soft, Normal Bowel Sounds. absent: Tenderness Assessment and Plan (1) Alzheimer disease Status: Acute (2) CHF exacerbation Status: Acute (3) Diabetes mellitus type 2 in nonobese Status: Chronic (4) Hypertension Status: Chronic
[2017-10-27] MEDS: Ipratropium 0.02% Inhal Soln (0.5 mg/2.5 ml) UD IH SCH ×4 (01:37→19:44)
[2017-10-27] MEDS: (Novolin R) Insulin Human Regular 100 units/ml vial SC SCH ×4 (07:30→21:22)
[2017-10-27] MEDS: guaiFENesin 100 mg/5 ml Syrup UD PO PRN (09:29)
[2017-10-27 11:51] LABS: ARTERIAL BLOOD GAS HCO3 34.6 mmol/L (21-28); ARTERIAL BLOOD GAS HEMOGLOBIN 10.8 g/dL (11.7-17.4); ARTERIAL BLOOD GAS O2 SAT 99.6 % (95-98); ARTERIAL BLOOD GAS PCO2 55 mm/Hg (35-45); ARTERIAL BLOOD GAS PH 7.45 (7.35-7.45); ARTERIAL BLOOD GAS PO2 109 mm/Hg (80-100); ARTERIAL BLOOD GAS TCO2 39.9 mmol/L (22-28)
[2017-10-27 14:05] LABS: BASO % 0.6 % (0.0-2.0); EOS # 0.1 K/uL (0.0-0.7); EOS % 1.2 % (0.0-4.0); HEMOGLOBIN 11.3 g/dL (11.0-16.0); LYMPH # 1.2 K/uL (1.0-4.3); LYMPH % 21.6 % (20.0-40.0); MEAN CORPUSCULAR HEMOGLOBIN 27.4 pg (27.0-31.0); MEAN CORPUSCULAR HGB CONC 31.5 g/dL (33.0-37.0); MEAN PLATELET VOLUME 9.2 fL (7.2-11.7); MONO # 0.5 K/uL (0.0-0.8); MONO % 8.8 % (0.0-10.0); NEUT # 3.9 K/uL (1.8-7.0); NEUT % 67.8 % (50.0-75.0); NRBC % 0.1 % (0.0-2.0); RBC 4.13 Mil/uL (3.80-5.20); RED CELL DISTRIBUTION WIDTH 15.3 % (11.5-14.5); WHITE BLOOD COUNT 5.8 K/uL (4.8-10.8)
[2017-10-27 14:16] LABS: BLOOD UREA NITROGEN 18 mg/dL (7-17); CALCIUM 8.5 mg/dl (8.6-10.4); GFR AFRICAN-AMERICAN > 60; GFR NON-AFRICAN AMERICAN > 60
--- NOTE | 2017-10-27 14:28 | RAD ---
Chest x-ray two views History: Pneumonia. Comparison: 10/21/2017 Findings: Moderate right and small to moderate left loculated pleural effusions. Confluent masslike consolidation in the lateral aspect of the right midlung zone. Prominent diffuse increased interstitial lung markings bilaterally suggestive for underlying edema and or infiltrate. Consolidative changes in the mid to lower lung zone. Cardiomegaly. Calcification at the aortic knob. Biapical pleural thickening with upper lobe granulomatous changes. Left-sided pacemaker. Tortuous and ectatic aorta. Degenerative changes in the spine and shoulders. On the lateral view there is tubing projecting over the anterior raf thorax and abdomen, clinical correlation. Impression: Moderate right and small to moderate left loculated pleural effusions. Confluent masslike consolidation in the lateral aspect of the right midlung zone. Prominent diffuse increased interstitial lung markings bilaterally suggestive for underlying edema and or infiltrate. Consolidative changes in the mid to lower lung zone. Cardiomegaly. Calcification at the aortic knob. Biapical pleural thickening with upper lobe granulomatous changes. Left-sided pacemaker. Tortuous and ectatic aorta. Degenerative changes in the spine and shoulders. On the lateral view there is tubing projecting over the anterior raf thorax and abdomen, clinical correlation.
--- NOTE | 2017-10-27 23:16 | CP.PCM.PN ---
Subjective - Date & Time of Evaluation Date of Evaluation: 10/27/17 Time of Evaluation: 18:30 - Subjective Subjective: Pt seen and evaluated at bedside Objective - Vital Signs/Intake and Output Vital Signs (last 24 hours): Temp Pulse Resp BP Pulse Ox 97.6 F 82 20 108/72 96 10/27/17 15:35 10/27/17 15:35 10/27/17 15:35 10/27/17 15:35 10/27/17 15:35 Intake and Output: 10/27/17 10/28/17 18:59 06:59 Intake Total 240 Balance 240 - Medications Medications: Current Medications Acetaminophen (Tylenol 325mg Tab) 650 mg PO Q6 PRN PRN Reason: Pain, moderate (4-7) Last Admin: 10/22/17 01:37 Dose: 650 mg Aspirin (Aspirin Chewable) 81 mg PO DAILY [facility] Last Admin: 10/27/17 09:29 Dose: 81 mg Clopidogrel Bisulfate (Plavix) 75 mg PO DAILY [facility] Last Admin: 10/27/17 09:29 Dose: 75 mg Donepezil HCl (Aricept) 10 mg PO HS [facility] Last Admin: 10/27/17 21:22 Dose: 10 mg Furosemide (Lasix) 20 mg IVP DAILY [facility] Last Admin: 10/27/17 09:28 Dose: 20 mg Guaifenesin (Robitussin) 100 mg PO Q4H PRN PRN Reason: Cough Last Admin: 10/27/17 09:29 Dose: 100 mg Ibuprofen (Motrin Tab) 400 mg PO ONCE PRN PRN Reason: Pain, Mild (1-3) Last Admin: 10/22/17 05:40 Dose: 400 mg Insulin Human Regular (Novolin R) 0 unit SC [facility] PRN Reason: Protocol Last Admin: 10/27/17 21:22 Dose: Not Given Ipratropium [place] (Atrovent) 0.5 mg IH RQ6 [facility] Last Admin: 10/27/17 19:44 Dose: 0.5 mg Lorazepam (Ativan) 0.5 mg PO Q12 PRN PRN Reason: Anxiety Last Admin: 10/24/17 21:12 Dose: 0.5 mg Mirtazapine (Remeron) 7.[address] [facility] Last Admin: 10/27/17 21:21 Dose: 7.5 mg Rosuvastatin Calcium (Crestor) 10 mg PO HS [facility] Last Admin: 10/27/17 21:21 Dose: 10 mg Sitagliptin Phosphate (Januvia) 25 mg PO DAILY [facility] Last Admin: 10/27/17 09:29 Dose: 25 mg - Labs Labs: 10/27/17 13:56 10/27/17 13:56 PT 12.2 SECONDS (9.7-12.2) 10/21/17 14:23 INR 1.1 10/21/17 14:23 APTT 32 SECONDS (21-34) 10/21/17 14:23 Assessment and Plan (1) Alzheimer disease Status: Acute (2) CHF exacerbation Status: Acute (3) Diabetes mellitus type 2 in nonobese Status: Chronic (4) Hypertension Status: Chronic
--- NOTE | 2017-10-27 23:52 | CP.PCM.PN ---
Subjective - Date & Time of Evaluation Date of Evaluation: 10/27/17 Time of Evaluation: 16:20 - Subjective Subjective: Patient seen and evaluated No cardiac events noted Review Of Systems Except As Marked, All Systems Reviewed And Found Negative. Gastrointestinal: Positive for: Abdominal Pain Neurological: Positive for: Weakness Physical Exam - Physical Exam Appears: Non-toxic, No Acute Distress Skin: Normal Color, Warm, Dry Head: Atraumatic, Normacephalic Eye(s): bilateral: Normal Inspection Nose: No Discharge Oral Mucosa: Moist Neck: Normal ROM, Supple Chest: Symmetrical Cardiovascular: Rhythm Regular, No Murmur Respiratory: Rales (B/L bases), No Rhonchi, No Wheezing Gastrointestinal/Abdominal: Soft, Tenderness (Epigastric), Distention, No Guarding, No Rebound Extremity: Normal ROM, No Tenderness, No Swelling Neurological/Psych: Oriented x3, Normal Motor, Normal Sensation Objective - Vital Signs/Intake and Output Vital Signs (last 24 hours): Temp Pulse Resp BP Pulse Ox 97.6 F 82 20 108/72 96 10/27/17 15:35 10/27/17 15:35 10/27/17 15:35 10/27/17 15:35 10/27/17 15:35 Intake and Output: 10/27/17 10/28/17 18:59 06:59 Intake Total 240 Balance 240 - Medications Medications: Current Medications Acetaminophen (Tylenol 325mg Tab) 650 mg PO Q6 PRN PRN Reason: Pain, moderate (4-7) Last Admin: 10/22/17 01:37 Dose: 650 mg Aspirin (Aspirin Chewable) 81 mg PO DAILY [facility] Last Admin: 10/27/17 09:29 Dose: 81 mg Clopidogrel Bisulfate (Plavix) 75 mg PO DAILY [facility] Last Admin: 10/27/17 09:29 Dose: 75 mg Donepezil HCl (Aricept) 10 mg PO HS [facility] Last Admin: 10/27/17 21:22 Dose: 10 mg Furosemide (Lasix) 20 mg IVP DAILY [facility] Last Admin: 10/27/17 09:28 Dose: 20 mg Guaifenesin (Robitussin) 100 mg PO Q4H PRN PRN Reason: Cough Last Admin: 10/27/17 09:29 Dose: 100 mg Ibuprofen (Motrin Tab) 400 mg PO ONCE PRN PRN Reason: Pain, Mild (1-3) Last Admin: 10/22/17 05:40 Dose: 400 mg Insulin Human Regular (Novolin R) 0 unit SC ACHS [facility] PRN Reason: Protocol Last Admin: 10/27/17 21:22 Dose: Not Given Ipratropium [place] (Atrovent) 0.5 mg IH RQ6 [facility] Last Admin: 10/27/17 19:44 Dose: 0.5 mg Lorazepam (Ativan) 0.5 mg PO Q12 PRN PRN Reason: Anxiety Last Admin: 10/24/17 21:12 Dose: 0.5 mg Mirtazapine (Remeron) 7.5 mg PO HS [facility] Last Admin: 10/27/17 21:21 Dose: 7.5 mg Rosuvastatin Calcium (Crestor) 10 mg PO HS [facility] Last Admin: 10/27/17 21:21 Dose: 10 mg Sitagliptin Phosphate (Januvia) 25 mg PO DAILY [facility] Last Admin: 10/27/17 09:29 Dose: 25 mg - Labs Labs: 10/27/17 13:56 10/27/17 13:56 PT 12.2 SECONDS (9.7-12.2) 10/21/17 14:23 INR 1.1 10/21/17 14:23 APTT 32 SECONDS (21-34) 10/21/17 14:23 Assessment and Plan - Assessment and Plan (Free Text) Assessment: Acute on Chronic Systolic CHF Improving symptoms Continue Lasix Severe Ischemic CMP Entire anterior, 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 Continue ASA, Plavix, Statins (B blockers and JEANNE I) HTN Controlled, monitor
[2017-10-28] MEDS: Ipratropium 0.02% Inhal Soln (0.5 mg/2.5 ml) UD IH SCH ×4 (02:27→19:45)
[2017-10-28] MEDS: (Novolin R) Insulin Human Regular 100 units/ml vial SC SCH ×4 (08:00→21:45)
[2017-10-28] MEDS: guaiFENesin 100 mg/5 ml Syrup UD PO PRN (09:51)
--- NOTE | 2017-10-28 10:45 | CP.PCM.PN ---
<Tony Alberts - Last Filed: 10/28/17 16:45> Subjective - Date & Time of Evaluation Date of Evaluation: 10/28/17 Time of Evaluation: 09:05 - Subjective Subjective: PGY2 Cardiology Progress Note for Dr. Robledo Patient seen and examined at bedside. No acute distress. Patient had pacemaker placed at [facility] in 2017; currently in process of contacting device rep. She denies chest pain, SOB, or LE edema. She does c/o persistent dizziness. 12- point review of systems is otherwise negative without any additional acute complaints. Objective - Vital Signs/Intake and Output Vital Signs (last 24 hours): Temp Pulse Resp BP Pulse Ox 97.5 F L 76 20 115/69 98 10/28/17 08:42 10/28/17 08:42 10/28/17 08:42 10/28/17 09:51 10/28/17 08:42 Intake and Output: 10/28/17 10/28/17 06:59 18:59 Intake Total 320 Balance 320 - Medications Medications: Current Medications Acetaminophen (Tylenol 325mg Tab) 650 mg PO Q6 PRN PRN Reason: Pain, moderate (4-7) Last Admin: 10/22/17 01:37 Dose: 650 mg Aspirin (Aspirin Chewable) 81 mg PO DAILY [facility] Last Admin: 10/28/17 09:51 Dose: 81 mg Clopidogrel Bisulfate (Plavix) 75 mg PO DAILY [facility] Last Admin: 10/28/17 09:51 Dose: 75 mg Donepezil HCl (Aricept) 10 mg PO HS [facility] Last Admin: 10/27/17 21:22 Dose: 10 mg Furosemide (Lasix) 20 mg IVP DAILY [facility] Last Admin: 10/28/17 09:51 Dose: 20 mg Guaifenesin (Robitussin) 100 mg PO Q4H PRN PRN Reason: Cough Last Admin: 10/28/17 09:51 Dose: 100 mg Ibuprofen (Motrin Tab) 400 mg PO ONCE PRN PRN Reason: Pain, Mild (1-3) Last Admin: 10/22/17 05:40 Dose: 400 mg Insulin Human Regular (Novolin R) 0 unit SC ACHS [facility] PRN Reason: Protocol Last Admin: 10/28/17 08:00 Dose: Not Given Ipratropium [place] (Atrovent) 0.5 mg IH RQ6 [facility] Last Admin: 10/28/17 07:43 Dose: 0.5 mg Lorazepam (Ativan) 0.5 mg PO Q12 PRN PRN Reason: Anxiety Last Admin: 10/24/17 21:12 Dose: 0.5 mg Mirtazapine (Remeron) 7.5 mg PO HS [facility] Last Admin: 10/27/17 21:21 Dose: 7.5 mg Rosuvastatin Calcium (Crestor) 10 mg PO HS [facility] Last Admin: 10/27/17 21:21 Dose: 10 mg Sitagliptin Phosphate (Januvia) 25 mg PO DAILY [facility] Last Admin: 10/28/17 09:51 Dose: 25 mg - Labs Labs: 10/27/17 13:56 10/27/17 13:56 PT 12.2 SECONDS (9.7-12.2) 10/21/17 14:23 INR 1.1 10/21/17 14:23 APTT 32 SECONDS (21-34) 10/21/17 14:23 - Additional Findings Additional findings: - Constitutional Appears: No Acute Distress - Head Exam Head Exam: ATRAUMATIC, NORMAL INSPECTION, NORMOCEPHALIC - Eye Exam Eye Exam: EOMI, Normal appearance, PERRL Pupil Exam: NORMAL ACCOMODATION, PERRL - Cardiovascular Exam Cardiovascular Exam: REGULAR RHYTHM, +S1, +S2. absent: Murmur Note: device palpated at left chest wall; based on size, likely ICD. - GI/Abdominal Exam GI & Abdominal Exam: Soft, Normal Bowel Sounds. absent: Tenderness - Rectal Exam Rectal Exam: Deferred - Extremities Exam Extremities Exam: Full ROM, Normal Capillary Refill, Normal Inspection. absent : Joint Swelling, Pedal Edema - Neurological Exam Neurological exam: Alert - Psychiatric Exam Psychiatric exam: Normal Affect - Skin Skin Exam: Warm Assessment and Plan - Assessment and Plan (Free Text) Assessment: Acute on Chronic Systolic CHF 10/28: Patient had pacemaker placed at [facility] in 2016; in process of contacting device rep (non-urgent as ICD is functioning well). 10/26: patient became mildly hypotensive today at BP 96/62. Lasix decreased to 20mg IVP. -Based upon palpation, device at L chest wall is likely an ICD. Further investigating will be performed to uncover the type of device, company, and rep contact information. -She states she had a "pacemaker" placed in 2016, but she is unsure what type , by which doctor, at which hospital, and she also lost the card that was given to her (I also spoke to both of her sons, who were not sure of the details). Echo 09/14/17- EF 10-15%; diastolic dysfunction, mild AR/MR; pulm HTN, pulm valve regurg. see full report. 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 Continue ASA, Plavix, Statins (B blockers and JEANNE I) HTN 10/28: BP 99/66, stable. continue to monitor 10/26: patient became mildly hypotensive today at BP 96/62. Lasix decreased to 20mg IVP. Controlled, monitor Case Discussed with Dr. Venkat Alberts, PGY2 <Kalen Robledo - Last Filed: 10/30/17 23:38> Objective - Vital Signs/Intake and Output Vital Signs (last 24 hours): Temp Pulse Resp BP Pulse Ox 97.5 F L 91 H 20 103/68 94 L 10/30/17 22:14 10/30/17 22:14 10/30/17 22:14 10/30/17 22:14 10/30/17 22:14 Intake and Output: 10/30/17 10/31/17 18:59 06:59 Intake Total 200 240 Output Total 300 Balance -100 240 - Medications Medications: Current Medications Acetaminophen (Tylenol 325mg Tab) 650 mg PO Q6 PRN PRN Reason: Pain, moderate (4-7) Last Admin: 10/22/17 01:37 Dose: 650 mg Aspirin (Aspirin Chewable) 81 mg PO DAILY [facility] Last Admin: 10/30/17 09:00 Dose: 81 mg Clopidogrel Bisulfate (Plavix) 75 mg PO DAILY [facility] Last Admin: 10/30/17 09:00 Dose: 75 mg Donepezil HCl (Aricept) 10 mg PO HS [facility] Last Admin: 10/30/17 21:12 Dose: 10 mg Furosemide (Lasix) 20 mg IVP DAILY [facility] Last Admin: 10/30/17 09:00 Dose: 20 mg Guaifenesin (Robitussin) 100 mg PO Q4H PRN PRN Reason: Cough Last Admin: 10/28/17 09:51 Dose: 100 mg Ibuprofen (Motrin Tab) 400 mg PO ONCE PRN PRN Reason: Pain, Mild (1-3) Last Admin: 10/22/17 05:40 Dose: 400 mg Insulin Human Regular (Novolin R) 0 unit SC ACHS [facility] PRN Reason: Protocol Last Admin: 10/30/17 21:10 Dose: Not Given Ipratropium [place] (Atrovent) 0.5 mg IH RQ6 [facility] Last Admin: 10/30/17 19:56 Dose: Not Given Lorazepam (Ativan) 0.5 mg PO Q12 PRN PRN Reason: Anxiety Last Admin: 10/30/17 06:07 Dose: 0.5 mg Mirtazapine (Remeron) 7.5 mg PO HS [facility] Last Admin: 10/30/17 21:12 Dose: 7.5 mg Rosuvastatin Calcium (Crestor) 10 mg PO HS [facility] Last Admin: 10/30/17 21:12 Dose: 10 mg Sitagliptin Phosphate (Januvia) 25 mg PO DAILY [facility] Last Admin: 10/30/17 09:00 Dose: 25 mg - Labs Labs: 10/27/17 13:56 10/29/17 10:42 PT 12.2 SECONDS (9.7-12.2) 10/21/17 14:23 INR 1.1 10/21/17 14:23 APTT 32 SECONDS (21-34) 10/21/17 14:23 Assessment and Plan - Assessment and Plan (Free Text) Plan: Patient seen and evaluated personally by me Plan of care d/w the resident and as documented
--- NOTE | 2017-10-28 23:20 | CP.PCM.PN ---
Subjective - Date & Time of Evaluation Date of Evaluation: 10/28/17 Time of Evaluation: 16:05 - Subjective Subjective: Pt seen and examined at bedside Objective - Vital Signs/Intake and Output Vital Signs (last 24 hours): Temp Pulse Resp BP Pulse Ox 97.2 F L 82 20 96/59 L 96 10/28/17 15:10 10/28/17 15:10 10/28/17 15:10 10/28/17 15:10 10/28/17 15:10 Intake and Output: 10/28/17 10/29/17 18:59 06:59 Intake Total 200 Balance 200 - Medications Medications: Current Medications Acetaminophen (Tylenol 325mg Tab) 650 mg PO Q6 PRN PRN Reason: Pain, moderate (4-7) Last Admin: 10/22/17 01:37 Dose: 650 mg Aspirin (Aspirin Chewable) 81 mg PO DAILY [facility] Last Admin: 10/28/17 09:51 Dose: 81 mg Clopidogrel Bisulfate (Plavix) 75 mg PO DAILY [facility] Last Admin: 10/28/17 09:51 Dose: 75 mg Donepezil HCl (Aricept) 10 mg PO HS [facility] Last Admin: 10/28/17 21:10 Dose: 10 mg Furosemide (Lasix) 20 mg IVP DAILY [facility] Last Admin: 10/28/17 09:51 Dose: 20 mg Guaifenesin (Robitussin) 100 mg PO Q4H PRN PRN Reason: Cough Last Admin: 10/28/17 09:51 Dose: 100 mg Ibuprofen (Motrin Tab) 400 mg PO ONCE PRN PRN Reason: Pain, Mild (1-3) Last Admin: 10/22/17 05:40 Dose: 400 mg Insulin Human Regular (Novolin R) 0 unit SC [facility] PRN Reason: Protocol Last Admin: 10/28/17 21:45 Dose: Not Given Ipratropium [place] (Atrovent) 0.5 mg IH RQ6 [facility] Last Admin: 10/28/17 19:45 Dose: 0.5 mg Lorazepam (Ativan) 0.5 mg PO Q12 PRN PRN Reason: Anxiety Last Admin: 10/28/17 14:18 Dose: 0.5 mg Mirtazapine (Remeron) 7.5 mg PO HS [facility] Last Admin: 10/28/17 21:10 Dose: 7.5 mg Rosuvastatin Calcium (Crestor) 10 mg PO HS [facility] Last Admin: 10/28/17 21:10 Dose: 10 mg Sitagliptin Phosphate (Januvia) 25 mg PO DAILY [facility] Last Admin: 10/28/17 09:51 Dose: 25 mg - Labs Labs: 10/27/17 13:56 10/27/17 13:56 PT 12.2 SECONDS (9.7-12.2) 10/21/17 14:23 INR 1.1 10/21/17 14:23 APTT 32 SECONDS (21-34) 10/21/17 14:23 Assessment and Plan (1) Alzheimer disease Status: Acute (2) CHF exacerbation Status: Acute (3) Diabetes mellitus type 2 in nonobese Status: Chronic (4) Hypertension Status: Chronic
[2017-10-29] MEDS: Ipratropium 0.02% Inhal Soln (0.5 mg/2.5 ml) UD IH SCH ×4 (01:07→19:31)
[2017-10-29] MEDS: (Novolin R) Insulin Human Regular 100 units/ml vial SC SCH ×3 (08:01→21:21)
[2017-10-29 11:06] LABS: BLOOD UREA NITROGEN 20 mg/dL (7-17); CALCIUM 8.5 mg/dl (8.6-10.4); GFR AFRICAN-AMERICAN > 60; GFR NON-AFRICAN AMERICAN > 60
--- NOTE | 2017-10-29 21:38 | CP.PCM.CON ---
History of Present Illness - History of Present Illness History of Present Illness: Reason for consultation: bilateral pleural effusion 77-year-old female with history of hypertension, diabetes, long history of smoking , CHF (20% EF), HTN, recent pacemaker insertion is sent to the ED from Dr. Robledo office for evaluation of weakness , low blood pressure. Patient is also c/o abdominal pain and SOB. Patient denies fever, chills, nausea, vomit, diarrhea, headache, numbness. patient status post AICD. CAT scan showed bilateral pleural effusion. Review of Systems - Review of Systems All systems: reviewed and no additional remarkable complaints except (shortness of breaths) Past Patient History - Infectious Disease Hx of Infectious Diseases: None - Past Medical History & Family History Past Medical History?: Yes - Past Social History Smoking Status: Light Smoker < 10 Cigarettes Daily - CARDIAC Hx Hypercholesterolemia: Yes Hx Hypertension: Yes - PULMONARY Hx Respiratory Disorders: No - NEUROLOGICAL Hx Dementia: Yes (PER FAMILY) - HEENT Hx HEENT Problems: No - RENAL Hx Chronic Kidney Disease: No - ENDOCRINE/METABOLIC Hx Diabetes Mellitus Type 2: Yes - HEMATOLOGICAL/ONCOLOGICAL Hx Blood Disorders: Yes Hx Cancer: Yes (BREAST) Other/Comment: LEFT MASTECTOMY - INTEGUMENTARY Hx Dermatological Problems: No - MUSCULOSKELETAL/RHEUMATOLOGICAL Hx Arthritis: Yes - GASTROINTESTINAL Hx Gastrointestinal Disorders: No - GENITOURINARY/GYNECOLOGICAL Hx Genitourinary Disorders: No - PSYCHIATRIC Hx Substance Use: No - SURGICAL HISTORY Hx Surgeries: Yes Hx Section: Yes Hx Mastectomy: Yes (LEFT) Other/Comment: AICD - ANESTHESIA Hx Anesthesia: Yes Hx Anesthesia Reactions: No Meds Allergies/Adverse Reactions: Allergies Allergy/AdvReac Type Severity Reaction Status Date / Time No Known Allergies Allergy Verified 10/21/17 13:55 - Medications Medications: Current Medications Acetaminophen (Tylenol 325mg Tab) 650 mg PO Q6 PRN PRN Reason: Pain, moderate (4-7) Last Admin: 10/22/17 01:37 Dose: 650 mg Aspirin (Aspirin Chewable) 81 mg PO DAILY [facility] Last Admin: 10/29/17 10:38 Dose: Not Given Clopidogrel Bisulfate (Plavix) 75 mg PO DAILY [facility] Last Admin: 10/29/17 10:37 Dose: Not Given Donepezil HCl (Aricept) 10 mg PO HS [facility] Last Admin: 10/29/17 21:21 Dose: 10 mg Furosemide (Lasix) 20 mg IVP DAILY [facility] Last Admin: 10/29/17 10:38 Dose: Not Given Guaifenesin (Robitussin) 100 mg PO Q4H PRN PRN Reason: Cough Last Admin: 10/28/17 09:51 Dose: 100 mg Ibuprofen (Motrin Tab) 400 mg PO ONCE PRN PRN Reason: Pain, Mild (1-3) Last Admin: 10/22/17 05:40 Dose: 400 mg Insulin Human Regular (Novolin R) 0 unit SC ACHS [facility] PRN Reason: Protocol Last Admin: 10/29/17 21:21 Dose: Not Given Ipratropium [place] (Atrovent) 0.5 mg IH RQ6 [facility] Last Admin: 10/29/17 19:31 Dose: 0.5 mg Lorazepam (Ativan) 0.5 mg PO Q12 PRN PRN Reason: Anxiety Last Admin: 10/28/17 14:18 Dose: 0.5 mg Mirtazapine (Remeron) 7.5 mg PO [facility] Last Admin: 10/29/17 21:21 Dose: 7.5 mg Rosuvastatin Calcium (Crestor) 10 mg PO HS [facility] Last Admin: 10/29/17 21:21 Dose: 10 mg Sitagliptin Phosphate (Januvia) 25 mg PO DAILY [facility] Last Admin: 10/29/17 10:38 Dose: Not Given Physical Exam - Head Exam Head Exam: ATRAUMATIC, NORMOCEPHALIC - ENT Exam ENT Exam: Mucous Membranes Moist - Neck Exam Neck exam: Positive for: Normal Inspection - Respiratory Exam Respiratory Exam: Decreased Breath Sounds - Cardiovascular Exam Cardiovascular Exam: REGULAR RHYTHM - GI/Abdominal Exam GI & Abdominal Exam: Normal Bowel Sounds, Soft Results - Vital Signs Recent Vital Signs: Last Vital Signs Temp 97.3 F L 10/29/17 15:55 Pulse 92 H 10/29/17 16:00 Resp 20 10/29/17 15:55 BP 98/64 L 10/29/17 15:55 Pulse Ox 93 L 10/29/17 15:55 - Labs Result Diagrams: 10/27/17 13:56 10/29/17 10:42 Labs: Laboratory Results - last 24 hr 10/28/17 10/29/17 10/29/17 21:25 06:15 10:42 Sodium 139 Potassium 4.3 Chloride 92 L Carbon Dioxide 38 H Anion Gap 13 BUN 20 H Creatinine 0.7 Est GFR ( Amer) > 60 Est GFR (Non-Af Amer) > 60 POC Glucose (mg/dL) 189 H 139 H Random Glucose 184 H Calcium 8.5 L Magnesium 2.3 10/29/17 10/29/17 10/29/17 11:42 16:31 20:55 Sodium Potassium Chloride Carbon Dioxide Anion Gap BUN Creatinine Est GFR ( Amer) Est GFR (Non-Af Amer) POC Glucose (mg/dL) 174 H 187 H 198 H Random Glucose Calcium Magnesium Assessment & Plan (1) Pleural effusion Status: Acute Comment: Equal bilateral pleural effusion most likely secondary to CHF. Continue Lasix. Consider thoracentesis by IR. Patient with long history of smoking. continue nebulizer treatment (2) CHF (congestive heart failure) Status: Acute
--- NOTE | 2017-10-29 22:57 | CP.PCM.PN ---
Subjective - Date & Time of Evaluation Date of Evaluation: 10/29/17 Time of Evaluation: 17:35 - Subjective Subjective: Pt is seen and examined, is feeling better, less short of breath, no chest pain , she is waiting for insurance to approve transfer to rehab meanwhile remains on diuretics, intake out put, daily body weight and medical management of CHF Objective - Vital Signs/Intake and Output Vital Signs (last 24 hours): Temp Pulse Resp BP Pulse Ox 97.3 F L 92 H 20 98/64 L 93 L 10/29/17 15:55 10/29/17 16:00 10/29/17 15:55 10/29/17 15:55 10/29/17 15:55 Intake and Output: 10/29/17 10/30/17 18:59 06:59 Intake Total 250 Balance 250 - Medications Medications: Current Medications Acetaminophen (Tylenol 325mg Tab) 650 mg PO Q6 PRN PRN Reason: Pain, moderate (4-7) Last Admin: 10/22/17 01:37 Dose: 650 mg Aspirin (Aspirin Chewable) 81 mg PO DAILY [facility] Last Admin: 10/29/17 10:38 Dose: Not Given Clopidogrel Bisulfate (Plavix) 75 mg PO DAILY [facility] Last Admin: 10/29/17 10:37 Dose: Not Given Donepezil HCl (Aricept) 10 mg PO HS [facility] Last Admin: 10/29/17 21:21 Dose: 10 mg Furosemide (Lasix) 20 mg IVP DAILY [facility] Last Admin: 10/29/17 10:38 Dose: Not Given Guaifenesin (Robitussin) 100 mg PO Q4H PRN PRN Reason: Cough Last Admin: 10/28/17 09:51 Dose: 100 mg Ibuprofen (Motrin Tab) 400 mg PO ONCE PRN PRN Reason: Pain, Mild (1-3) Last Admin: 10/22/17 05:40 Dose: 400 mg Insulin Human Regular (Novolin R) 0 unit SC ACHS [facility] PRN Reason: Protocol Last Admin: 10/29/17 21:21 Dose: Not Given Ipratropium [place] (Atrovent) 0.5 mg IH RQ6 [facility] Last Admin: 10/29/17 19:31 Dose: 0.5 mg Lorazepam (Ativan) 0.5 mg PO Q12 PRN PRN Reason: Anxiety Last Admin: 10/28/17 14:18 Dose: 0.5 mg Mirtazapine (Remeron) 7.5 mg PO HS [facility] Last Admin: 10/29/17 21:21 Dose: 7.5 mg Rosuvastatin Calcium (Crestor) 10 mg PO HS [facility] Last Admin: 10/29/17 21:21 Dose: 10 mg Sitagliptin Phosphate (Januvia) 25 mg PO DAILY [facility] Last Admin: 10/29/17 10:38 Dose: Not Given - Labs Labs: 10/27/17 13:56 10/29/17 10:42 PT 12.2 SECONDS (9.7-12.2) 10/21/17 14:23 INR 1.1 10/21/17 14:23 APTT 32 SECONDS (21-34) 10/21/17 14:23 - Constitutional Appears: No Acute Distress - Head Exam Head Exam: ATRAUMATIC, NORMAL INSPECTION, NORMOCEPHALIC - Eye Exam Eye Exam: EOMI, Normal appearance, PERRL Pupil Exam: NORMAL ACCOMODATION, PERRL - Respiratory Exam Respiratory Exam: Decreased Breath Sounds, Rales - Cardiovascular Exam Cardiovascular Exam: REGULAR RHYTHM, +S1, +S2. absent: Murmur - GI/Abdominal Exam GI & Abdominal Exam: Soft, Normal Bowel Sounds. absent: Tenderness Assessment and Plan (1) Alzheimer disease Status: Acute (2) CHF exacerbation Status: Acute (3) Diabetes mellitus type 2 in nonobese Status: Chronic (4) Hypertension Status: Chronic
[2017-10-30] MEDS: Ipratropium 0.02% Inhal Soln (0.5 mg/2.5 ml) UD IH SCH ×4 (02:27→19:56)
[2017-10-30] MEDS: (Novolin R) Insulin Human Regular 100 units/ml vial SC SCH ×4 (07:49→21:10)
--- NOTE | 2017-10-30 21:59 | CP.PCM.PN ---
Subjective - Date & Time of Evaluation Date of Evaluation: 10/30/17 Time of Evaluation: 14:00 - Subjective Subjective: Pt is seen and examined today Objective - Vital Signs/Intake and Output Vital Signs (last 24 hours): Temp Pulse Resp BP Pulse Ox 97.5 F L 79 20 95/59 L 94 L 10/30/17 16:00 10/30/17 16:00 10/30/17 16:00 10/30/17 16:00 10/30/17 16:00 Intake and Output: 10/30/17 10/31/17 18:59 06:59 Intake Total 200 Output Total 300 Balance -100 - Medications Medications: Current Medications Acetaminophen (Tylenol 325mg Tab) 650 mg PO Q6 PRN PRN Reason: Pain, moderate (4-7) Last Admin: 10/22/17 01:37 Dose: 650 mg Aspirin (Aspirin Chewable) 81 mg PO DAILY [facility] Last Admin: 10/30/17 09:00 Dose: 81 mg Clopidogrel Bisulfate (Plavix) 75 mg PO DAILY [facility] Last Admin: 10/30/17 09:00 Dose: 75 mg Donepezil HCl (Aricept) 10 mg PO [facility] Last Admin: 10/30/17 21:12 Dose: 10 mg Furosemide (Lasix) 20 mg IVP DAILY [facility] Last Admin: 10/30/17 09:00 Dose: 20 mg Guaifenesin (Robitussin) 100 mg PO Q4H PRN PRN Reason: Cough Last Admin: 10/28/17 09:51 Dose: 100 mg Ibuprofen (Motrin Tab) 400 mg PO ONCE PRN PRN Reason: Pain, Mild (1-3) Last Admin: 10/22/17 05:40 Dose: 400 mg Insulin Human Regular (Novolin R) 0 unit SC [facility] PRN Reason: Protocol Last Admin: 10/30/17 21:10 Dose: Not Given Ipratropium [place] (Atrovent) 0.5 mg IH RQ6 [facility] Last Admin: 10/30/17 19:56 Dose: Not Given Lorazepam (Ativan) 0.5 mg PO Q12 PRN PRN Reason: Anxiety Last Admin: 10/30/17 06:07 Dose: 0.5 mg Mirtazapine (Remeron) 7.5 mg PO [facility] Last Admin: 10/30/17 21:12 Dose: 7.5 mg Rosuvastatin Calcium (Crestor) 10 mg PO [facility] Last Admin: 10/30/17 21:12 Dose: 10 mg Sitagliptin Phosphate (Januvia) 25 mg PO DAILY [facility] Last Admin: 10/30/17 09:00 Dose: 25 mg - Labs Labs: 10/27/17 13:56 10/29/17 10:42 PT 12.2 SECONDS (9.7-12.2) 10/21/17 14:23 INR 1.1 10/21/17 14:23 APTT 32 SECONDS (21-34) 10/21/17 14:23 Assessment and Plan (1) Alzheimer disease Status: Acute (2) CHF exacerbation Status: Acute (3) Diabetes mellitus type 2 in nonobese Status: Chronic (4) Hypertension Status: Chronic
--- NOTE | 2017-10-30 23:40 | CP.PCM.PN ---
Subjective - Date & Time of Evaluation Date of Evaluation: 10/29/17 Time of Evaluation: 15:15 - Subjective Subjective: Patient seen and evaluated Lying down comfortably Not in distress B/L pleural effusion being seen by Dr. Nolan Objective - Vital Signs/Intake and Output Vital Signs (last 24 hours): Temp Pulse Resp BP Pulse Ox 97.5 F L 91 H 20 103/68 94 L 10/30/17 22:14 10/30/17 22:14 10/30/17 22:14 10/30/17 22:14 10/30/17 22:14 Intake and Output: 10/30/17 10/31/17 18:59 06:59 Intake Total 200 240 Output Total 300 Balance -100 240 - Medications Medications: Current Medications Acetaminophen (Tylenol 325mg Tab) 650 mg PO Q6 PRN PRN Reason: Pain, moderate (4-7) Last Admin: 10/22/17 01:37 Dose: 650 mg Aspirin (Aspirin Chewable) 81 mg PO DAILY [facility] Last Admin: 10/30/17 09:00 Dose: 81 mg Clopidogrel Bisulfate (Plavix) 75 mg PO DAILY [facility] Last Admin: 10/30/17 09:00 Dose: 75 mg Donepezil HCl (Aricept) 10 mg PO HS [facility] Last Admin: 10/30/17 21:12 Dose: 10 mg Furosemide (Lasix) 20 mg IVP DAILY [facility] Last Admin: 10/30/17 09:00 Dose: 20 mg Guaifenesin (Robitussin) 100 mg PO Q4H PRN PRN Reason: Cough Last Admin: 10/28/17 09:51 Dose: 100 mg Ibuprofen (Motrin Tab) 400 mg PO ONCE PRN PRN Reason: Pain, Mild (1-3) Last Admin: 10/22/17 05:40 Dose: 400 mg Insulin Human Regular (Novolin R) 0 unit SC ACHS [facility] PRN Reason: Protocol Last Admin: 10/30/17 21:10 Dose: Not Given Ipratropium [place] (Atrovent) 0.5 mg IH RQ6 [facility] Last Admin: 10/30/17 19:56 Dose: Not Given Lorazepam (Ativan) 0.5 mg PO Q12 PRN PRN Reason: Anxiety Last Admin: 10/30/17 06:07 Dose: 0.5 mg Mirtazapine (Remeron) 7.5 mg PO HS [facility] Last Admin: 10/30/17 21:12 Dose: 7.5 mg Rosuvastatin Calcium (Crestor) 10 mg PO HS [facility] Last Admin: 10/30/17 21:12 Dose: 10 mg Sitagliptin Phosphate (Januvia) 25 mg PO DAILY [facility] Last Admin: 10/30/17 09:00 Dose: 25 mg - Labs Labs: 10/27/17 13:56 10/29/17 10:42 PT 12.2 SECONDS (9.7-12.2) 10/21/17 14:23 INR 1.1 10/21/17 14:23 APTT 32 SECONDS (21-34) 10/21/17 14:23
--- NOTE | 2017-10-30 23:41 | CP.PCM.PN ---
Subjective - Date & Time of Evaluation Date of Evaluation: 10/30/17 Time of Evaluation: 21:05 - Subjective Subjective: Patient seen and evaluated Lying down comfortably Not in distress B/L pleural effusion being seen by Dr. Nolan Objective - Vital Signs/Intake and Output Vital Signs (last 24 hours): Temp Pulse Resp BP Pulse Ox 97.5 F L 91 H 20 103/68 94 L 10/30/17 22:14 10/30/17 22:14 10/30/17 22:14 10/30/17 22:14 10/30/17 22:14 Intake and Output: 10/30/17 10/31/17 18:59 06:59 Intake Total 200 240 Output Total 300 Balance -100 240 - Medications Medications: Current Medications Acetaminophen (Tylenol 325mg Tab) 650 mg PO Q6 PRN PRN Reason: Pain, moderate (4-7) Last Admin: 10/22/17 01:37 Dose: 650 mg Aspirin (Aspirin Chewable) 81 mg PO DAILY [facility] Last Admin: 10/30/17 09:00 Dose: 81 mg Clopidogrel Bisulfate (Plavix) 75 mg PO DAILY [facility] Last Admin: 10/30/17 09:00 Dose: 75 mg Donepezil HCl (Aricept) 10 mg PO HS [facility] Last Admin: 10/30/17 21:12 Dose: 10 mg Furosemide (Lasix) 20 mg IVP DAILY [facility] Last Admin: 10/30/17 09:00 Dose: 20 mg Guaifenesin (Robitussin) 100 mg PO Q4H PRN PRN Reason: Cough Last Admin: 10/28/17 09:51 Dose: 100 mg Ibuprofen (Motrin Tab) 400 mg PO ONCE PRN PRN Reason: Pain, Mild (1-3) Last Admin: 10/22/17 05:40 Dose: 400 mg Insulin Human Regular (Novolin R) 0 unit SC [facility] PRN Reason: Protocol Last Admin: 10/30/17 21:10 Dose: Not Given Ipratropium [place] (Atrovent) 0.5 mg IH RQ6 [facility] Last Admin: 10/30/17 19:56 Dose: Not Given Lorazepam (Ativan) 0.5 mg PO Q12 PRN PRN Reason: Anxiety Last Admin: 10/30/17 06:07 Dose: 0.5 mg Mirtazapine (Remeron) 7.5 mg PO HS [facility] Last Admin: 10/30/17 21:12 Dose: 7.5 mg Rosuvastatin Calcium (Crestor) 10 mg PO HS [facility] Last Admin: 10/30/17 21:12 Dose: 10 mg Sitagliptin Phosphate (Januvia) 25 mg PO DAILY [facility] Last Admin: 10/30/17 09:00 Dose: 25 mg - Labs Labs: 10/27/17 13:56 10/29/17 10:42 PT 12.2 SECONDS (9.7-12.2) 10/21/17 14:23 INR 1.1 10/21/17 14:23 APTT 32 SECONDS (21-34) 10/21/17 14:23
[2017-10-31] MEDS: Ipratropium 0.02% Inhal Soln (0.5 mg/2.5 ml) UD IH SCH ×4 (01:29→19:50)
[2017-10-31] MEDS: (Novolin R) Insulin Human Regular 100 units/ml vial SC SCH ×4 (07:30→21:51)
[2017-10-31] MEDS: guaiFENesin 100 mg/5 ml Syrup UD PO PRN (12:50)
--- NOTE | 2017-10-31 13:13 | CP.PCM.PN ---
<Tony Alberts - Last Filed: 10/31/17 16:11> Subjective - Date & Time of Evaluation Date of Evaluation: 10/31/17 Time of Evaluation: 09:05 - Subjective Subjective: PGY2 Cardiology Progress Note for Dr. Robledo Patient seen and examined at bedside. No acute distress. Patient had pacemaker placed at [place] in 2017 - device working properly. Denies dizziness, chest pain, SOB, or LE edema. 12-point review of systems is otherwise negative without any additional acute complaints. Objective - Vital Signs/Intake and Output Vital Signs (last 24 hours): Temp Pulse Resp BP Pulse Ox 97.3 F L 77 18 91/59 L 99 10/31/17 07:05 10/31/17 07:05 10/31/17 07:05 10/31/17 09:34 10/31/17 07:05 Intake and Output: 10/31/17 10/31/17 06:59 18:59 Intake Total 240 Balance 240 - Medications Medications: Current Medications Acetaminophen (Tylenol 325mg Tab) 650 mg PO Q6 PRN PRN Reason: Pain, moderate (4-7) Last Admin: 10/22/17 01:37 Dose: 650 mg Aspirin (Aspirin Chewable) 81 mg PO DAILY [facility] Last Admin: 10/31/17 09:28 Dose: 81 mg Clopidogrel Bisulfate (Plavix) 75 mg PO DAILY [facility] Last Admin: 10/31/17 09:28 Dose: 75 mg Donepezil HCl (Aricept) 10 mg PO HS [facility] Last Admin: 10/30/17 21:12 Dose: 10 mg Furosemide (Lasix) 20 mg IVP DAILY [facility] Last Admin: 10/31/17 09:34 Dose: Not Given Guaifenesin (Robitussin) 100 mg PO Q4H PRN PRN Reason: Cough Last Admin: 10/31/17 12:50 Dose: 100 mg Ibuprofen (Motrin Tab) 400 mg PO ONCE PRN PRN Reason: Pain, Mild (1-3) Last Admin: 10/22/17 05:40 Dose: 400 mg Insulin Human Regular (Novolin R) 0 unit SC ACHS [facility] PRN Reason: Protocol Last Admin: 10/31/17 11:30 Dose: Not Given Ipratropium [place] (Atrovent) 0.5 mg IH RQ6 [facility] Last Admin: 10/31/17 07:52 Dose: 0.5 mg Lorazepam (Ativan) 0.5 mg PO Q12 PRN PRN Reason: Anxiety Last Admin: 10/30/17 06:07 Dose: 0.5 mg Mirtazapine (Remeron) 7.5 mg PO HS [facility] Last Admin: 10/30/17 21:12 Dose: 7.5 mg Rosuvastatin Calcium (Crestor) 10 mg PO HS [facility] Last Admin: 10/30/17 21:12 Dose: 10 mg Sitagliptin Phosphate (Januvia) 25 mg PO DAILY [facility] Last Admin: 10/31/17 09:28 Dose: 25 mg - Labs Labs: 10/27/17 13:56 10/29/17 10:42 PT 12.2 SECONDS (9.7-12.2) 10/21/17 14:23 INR 1.1 10/21/17 14:23 APTT 32 SECONDS (21-34) 10/21/17 14:23 - Additional Findings Additional findings: - Constitutional Appears: No Acute Distress - Head Exam Head Exam: ATRAUMATIC, NORMAL INSPECTION, NORMOCEPHALIC - Eye Exam Eye Exam: EOMI, Normal appearance, PERRL Pupil Exam: NORMAL ACCOMODATION, PERRL - Cardiovascular Exam Cardiovascular Exam: REGULAR RHYTHM, +S1, +S2. absent: Murmur Note: device palpated at left chest wall; based on size, likely ICD. - GI/Abdominal Exam GI & Abdominal Exam: Soft, Normal Bowel Sounds. absent: Tenderness - Rectal Exam Rectal Exam: Deferred - Extremities Exam Extremities Exam: Full ROM, Normal Capillary Refill, Normal Inspection. absent : Joint Swelling, Pedal Edema - Neurological Exam Neurological exam: Alert - Psychiatric Exam Psychiatric exam: Normal Affect - Skin Skin Exam: Warm, Dry, Intact Assessment and Plan - Assessment and Plan (Free Text) Assessment: Acute on Chronic Systolic CHF 10/31: b/l pleural effusion, followed by Pulmonology, Dr. Nolan 10/28: Patient had pacemaker placed at [place] in 2016; in process of contacting device rep (non-urgent as ICD is functioning well). 10/26: patient became mildly hypotensive today at BP 96/62. Lasix decreased to 20mg IVP. -Based upon palpation, device at L chest wall is likely an ICD. Further investigating will be performed to uncover the type of device, company, and rep contact information. -She states she had a "pacemaker" placed in 2017, but she is unsure what type , by which doctor, at which hospital, and she also lost the card that was given to her (I also spoke to both of her sons, who were not sure of the details). Echo 09/14/17- EF 10-15%; diastolic dysfunction, mild AR/MR; pulm HTN, pulm valve regurg. see full report. 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 Continue ASA, Plavix, Statins (B blockers and JEANNE I) HTN Stable, continue to monitor. 10/28: BP 99/66, stable. continue to monitor 10/26: patient became mildly hypotensive today at BP 96/62. Lasix decreased to 20mg IVP. Controlled, monitor Case Discussed with Dr. Venkat Alberts, PGY2 <Kalen Robledo - Last Filed: 10/31/17 23:03> Objective - Vital Signs/Intake and Output Vital Signs (last 24 hours): Temp Pulse Resp BP Pulse Ox 98.3 F 80 18 106/71 100 10/31/17 15:00 10/31/17 16:34 10/31/17 15:00 10/31/17 15:00 10/31/17 15:00 Intake and Output: 10/31/17 11/01/17 18:59 06:59 Intake Total 320 Balance 320 - Medications Medications: Current Medications Acetaminophen (Tylenol 325mg Tab) 650 mg PO Q6 PRN PRN Reason: Pain, moderate (4-7) Last Admin: 10/22/17 01:37 Dose: 650 mg Aspirin (Aspirin Chewable) 81 mg PO DAILY [facility] Last Admin: 10/31/17 09:28 Dose: 81 mg Clopidogrel Bisulfate (Plavix) 75 mg PO DAILY [facility] Last Admin: 10/31/17 09:28 Dose: 75 mg Donepezil HCl (Aricept) 10 mg PO HS [facility] Last Admin: 10/31/17 21:34 Dose: 10 mg Furosemide (Lasix) 20 mg IVP DAILY [facility] Last Admin: 10/31/17 09:34 Dose: Not Given Guaifenesin (Robitussin) 100 mg PO Q4H PRN PRN Reason: Cough Last Admin: 10/31/17 12:50 Dose: 100 mg Ibuprofen (Motrin Tab) 400 mg PO ONCE PRN PRN Reason: Pain, Mild (1-3) Last Admin: 10/22/17 05:40 Dose: 400 mg Insulin Human Regular (Novolin R) 0 unit SC ACHS [facility] PRN Reason: Protocol Last Admin: 10/31/17 21:51 Dose: Not Given Ipratropium [place] (Atrovent) 0.5 mg IH RQ6 [facility] Last Admin: 10/31/17 19:50 Dose: Not Given Mirtazapine (Remeron) 7.5 mg PO HS [facility] Last Admin: 10/31/17 21:33 Dose: 7.5 mg Rosuvastatin Calcium (Crestor) 10 mg PO HS [facility] Last Admin: 10/31/17 21:34 Dose: 10 mg Sitagliptin Phosphate (Januvia) 25 mg PO DAILY [facility] Last Admin: 10/31/17 09:28 Dose: 25 mg - Labs Labs: 10/27/17 13:56 10/29/17 10:42 PT 12.2 SECONDS (9.7-12.2) 10/21/17 14:23 INR 1.1 10/21/17 14:23 APTT 32 SECONDS (21-34) 10/21/17 14:23 Assessment and Plan - Assessment and Plan (Free Text) Plan: Patient seen and evaluated personally by me Plan of care d/w the resident and as documented
--- NOTE | 2017-10-31 15:26 | CP.PCM.PN ---
Subjective - Date & Time of Evaluation Date of Evaluation: 10/31/17 Time of Evaluation: 12:00 - Subjective Subjective: Patient seen and examined Breathing much improved Denies cough, denies fever chills Being treated for CHF Followup chest x-ray for bilateral pleural eff and if no change then thoracentesis Objective - Vital Signs/Intake and Output Vital Signs (last 24 hours): Temp Pulse Resp BP Pulse Ox 97.3 F L 77 18 91/59 L 99 10/31/17 07:05 10/31/17 07:05 10/31/17 07:05 10/31/17 09:34 10/31/17 07:05 Intake and Output: 10/31/17 10/31/17 06:59 18:59 Intake Total 240 320 Balance 240 320 - Medications Medications: Current Medications Acetaminophen (Tylenol 325mg Tab) 650 mg PO Q6 PRN PRN Reason: Pain, moderate (4-7) Last Admin: 10/22/17 01:37 Dose: 650 mg Aspirin (Aspirin Chewable) 81 mg PO DAILY [facility] Last Admin: 10/31/17 09:28 Dose: 81 mg Clopidogrel Bisulfate (Plavix) 75 mg PO DAILY [facility] Last Admin: 10/31/17 09:28 Dose: 75 mg Donepezil HCl (Aricept) 10 mg PO HS [facility] Last Admin: 10/30/17 21:12 Dose: 10 mg Furosemide (Lasix) 20 mg IVP DAILY [facility] Last Admin: 10/31/17 09:34 Dose: Not Given Guaifenesin (Robitussin) 100 mg PO Q4H PRN PRN Reason: Cough Last Admin: 10/31/17 12:50 Dose: 100 mg Ibuprofen (Motrin Tab) 400 mg PO ONCE PRN PRN Reason: Pain, Mild (1-3) Last Admin: 10/22/17 05:40 Dose: 400 mg Insulin Human Regular (Novolin R) 0 unit SC ACHS [facility] PRN Reason: Protocol Last Admin: 10/31/17 11:30 Dose: Not Given Ipratropium [place] (Atrovent) 0.5 mg IH RQ6 [facility] Last Admin: 10/31/17 13:23 Dose: Not Given Mirtazapine (Remeron) 7.5 mg PO HS [facility] Last Admin: 10/30/17 21:12 Dose: 7.5 mg Rosuvastatin Calcium (Crestor) 10 mg PO HS [facility] Last Admin: 10/30/17 21:12 Dose: 10 mg Sitagliptin Phosphate (Januvia) 25 mg PO DAILY [facility] Last Admin: 10/31/17 09:28 Dose: 25 mg - Labs Labs: 10/27/17 13:56 10/29/17 10:42 PT 12.2 SECONDS (9.7-12.2) 10/21/17 14:23 INR 1.1 10/21/17 14:23 APTT 32 SECONDS (21-34) 10/21/17 14:23 Assessment and Plan (1) Pleural effusion Status: Acute (2) CHF (congestive heart failure) Status: Acute
[2017-11-01] MEDS: Ipratropium 0.02% Inhal Soln (0.5 mg/2.5 ml) UD IH SCH ×4 (01:02→19:38)
[2017-11-01 06:56] LABS: HEMOGLOBIN 11.1 g/dL (11.0-16.0); MEAN CELL VOLUME 85.8 fL (81.0-99.0); MEAN CORPUSCULAR HEMOGLOBIN 27.3 pg (27.0-31.0); MEAN CORPUSCULAR HGB CONC 31.9 g/dL (33.0-37.0); MEAN PLATELET VOLUME 9.8 fL (7.2-11.7); RBC 4.07 Mil/uL (3.80-5.20); RED CELL DISTRIBUTION WIDTH 15.5 % (11.5-14.5)
[2017-11-01 07:06] LABS: WHITE BLOOD COUNT 1.7 K/uL (4.8-10.8)
[2017-11-01 07:08] LABS: BLOOD UREA NITROGEN 22 mg/dL (7-17); CALCIUM 8.6 mg/dl (8.6-10.4); GFR AFRICAN-AMERICAN > 60; GFR NON-AFRICAN AMERICAN > 60
[2017-11-01] MEDS: (Novolin R) Insulin Human Regular 100 units/ml vial SC SCH ×4 (07:28→21:52)
[2017-11-01] MEDS: guaiFENesin 100 mg/5 ml Syrup UD PO PRN (10:36)
--- NOTE | 2017-11-01 11:41 | CP.PCM.PN ---
<Tony Alberts - Last Filed: 11/01/17 16:06> Subjective - Date & Time of Evaluation Date of Evaluation: 11/01/17 Time of Evaluation: 07:40 - Subjective Subjective: PGY2 Cardiology Progress Note for Dr. Robledo Patient seen and examined at bedside. No acute distress. Patient had pacemaker placed at [facility] in 2017 - device working properly. Denies dizziness, chest pain, SOB, or LE edema. 12-point review of systems is otherwise negative without any additional acute complaints. Objective - Vital Signs/Intake and Output Vital Signs (last 24 hours): Temp Pulse Resp BP Pulse Ox 98.0 F 70 20 98/65 L 96 11/01/17 07:53 11/01/17 07:53 11/01/17 07:53 11/01/17 10:37 11/01/17 07:53 - Medications Medications: Current Medications Acetaminophen (Tylenol 325mg Tab) 650 mg PO Q6 PRN PRN Reason: Pain, moderate (4-7) Last Admin: 10/22/17 01:37 Dose: 650 mg Aspirin (Aspirin Chewable) 81 mg PO DAILY [facility] Last Admin: 11/01/17 10:36 Dose: 81 mg Clopidogrel Bisulfate (Plavix) 75 mg PO DAILY [facility] Last Admin: 11/01/17 10:37 Dose: 75 mg Donepezil HCl (Aricept) 10 mg PO HS [facility] Last Admin: 10/31/17 21:34 Dose: 10 mg Furosemide (Lasix) 20 mg IVP DAILY [facility] Last Admin: 11/01/17 10:37 Dose: Not Given Guaifenesin (Robitussin) 100 mg PO Q4H PRN PRN Reason: Cough Last Admin: 11/01/17 10:36 Dose: 100 mg Ibuprofen (Motrin Tab) 400 mg PO ONCE PRN PRN Reason: Pain, Mild (1-3) Last Admin: 10/22/17 05:40 Dose: 400 mg Insulin Human Regular (Novolin R) 0 unit SC ACHS [facility] PRN Reason: Protocol Last Admin: 11/01/17 11:31 Dose: Not Given Ipratropium [place] (Atrovent) 0.5 mg IH RQ6 [facility] Last Admin: 11/01/17 07:39 Dose: 0.5 mg Lorazepam (Ativan) 0.5 mg PO Q12 PRN PRN Reason: Anxiety Last Admin: 11/01/17 11:24 Dose: 0.5 mg Mirtazapine (Remeron) 7.5 mg PO HS [facility] Last Admin: 10/31/17 21:33 Dose: 7.5 mg Rosuvastatin Calcium (Crestor) 10 mg PO HS [facility] Last Admin: 10/31/17 21:34 Dose: 10 mg Sitagliptin Phosphate (Januvia) 25 mg PO DAILY [facility] Last Admin: 11/01/17 10:37 Dose: 25 mg - Labs Labs: 11/01/17 06:48 11/01/17 06:48 PT 12.2 SECONDS (9.7-12.2) 10/21/17 14:23 INR 1.1 10/21/17 14:23 APTT 32 SECONDS (21-34) 10/21/17 14:23 - Additional Findings Additional findings: - Constitutional Appears: No Acute Distress - Head Exam Head Exam: ATRAUMATIC, NORMAL INSPECTION, NORMOCEPHALIC - Eye Exam Eye Exam: EOMI, Normal appearance, PERRL Pupil Exam: NORMAL ACCOMODATION, PERRL - Respiratory Exam Respiratory Exam: Decreased Breath Sounds, Rales. absent: Rhonchi, Wheezes - Cardiovascular Exam Cardiovascular Exam: REGULAR RHYTHM, +S1, +S2. absent: Murmur Note: device palpated at left chest wall; based on size, likely ICD. - GI/Abdominal Exam GI & Abdominal Exam: Soft, Normal Bowel Sounds. absent: Tenderness - Rectal Exam Rectal Exam: Deferred - Extremities Exam Extremities Exam: Full ROM, Normal Capillary Refill, Normal Inspection. absent : Joint Swelling, Pedal Edema - Neurological Exam Neurological exam: Alert - Psychiatric Exam Psychiatric exam: Normal Affect - Skin Skin Exam: Warm, Dry, Intact Assessment and Plan - Assessment and Plan (Free Text) Assessment: Acute on Chronic Systolic CHF 10/31-11/01: b/l pleural effusion, followed by Pulmonology, Dr. Nolan - if pleural effusion does not improve, plan for thoracentesis (f/u cxr) 10/28: Patient had pacemaker placed at [facility] in 2016; in process of contacting device rep (non-urgent as ICD is functioning well). 10/26: patient became mildly hypotensive today at BP 96/62. Lasix decreased to 20mg IVP. -Based upon palpation, device at L chest wall is likely an ICD. Further investigating will be performed to uncover the type of device, company, and rep contact information. -She states she had a "pacemaker" placed in 2017, but she is unsure what type , by which doctor, at which hospital, and she also lost the card that was given to her (I also spoke to both of her sons, who were not sure of the details). Echo 09/14/17- EF 10-15%; diastolic dysfunction, mild AR/MR; pulm HTN, pulm valve regurg. see full report. 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 Continue ASA, Plavix, Statins (B blockers and JEANNE I) HTN Stable at 103/62, continue current managment 10/28: BP 99/66, stable. continue to monitor 10/26: patient became mildly hypotensive today at BP 96/62. Lasix decreased to 20mg IVP. Controlled, monitor Case Discussed with Dr. Venkat Alberts, PGY2 <Kalen Robledo - Last Filed: 11/01/17 23:43> Objective - Vital Signs/Intake and Output Vital Signs (last 24 hours): Temp Pulse Resp BP Pulse Ox 99.3 F 89 18 91/60 L 94 L 11/01/17 15:15 11/01/17 15:15 11/01/17 15:15 11/01/17 15:15 11/01/17 15:15 Intake and Output: 11/01/17 11/02/17 18:59 06:59 Intake Total 350 Output Total 1 Balance 349 - Medications Medications: Current Medications Acetaminophen (Tylenol 325mg Tab) 650 mg PO Q6 PRN PRN Reason: Pain, moderate (4-7) Last Admin: 10/22/17 01:37 Dose: 650 mg Aspirin (Aspirin Chewable) 81 mg PO DAILY [facility] Last Admin: 11/01/17 10:36 Dose: 81 mg Clopidogrel Bisulfate (Plavix) 75 mg PO DAILY [facility] Last Admin: 11/01/17 10:37 Dose: 75 mg Donepezil HCl (Aricept) 10 mg PO HS [facility] Last Admin: 11/01/17 21:20 Dose: 10 mg Furosemide (Lasix) 20 mg IVP DAILY [facility] Last Admin: 11/01/17 10:37 Dose: Not Given Guaifenesin (Robitussin) 100 mg PO Q4H PRN PRN Reason: Cough Last Admin: 11/01/17 10:36 Dose: 100 mg Ibuprofen (Motrin Tab) 400 mg PO ONCE PRN PRN Reason: Pain, Mild (1-3) Last Admin: 10/22/17 05:40 Dose: 400 mg Insulin Human Regular (Novolin R) 0 unit SC ACHS [facility] PRN Reason: Protocol Last Admin: 11/01/17 21:52 Dose: Not Given Ipratropium [place] (Atrovent) 0.5 mg IH RQ6 [facility] Last Admin: 11/01/17 19:38 Dose: 0.5 mg Lorazepam (Ativan) 0.5 mg PO Q12 PRN PRN Reason: Anxiety Last Admin: 11/01/17 11:24 Dose: 0.5 mg Mirtazapine (Remeron) 7.5 mg PO HS [facility] Last Admin: 11/01/17 21:20 Dose: 7.5 mg Rosuvastatin Calcium (Crestor) 10 mg PO HS [facility] Last Admin: 11/01/17 21:20 Dose: 10 mg Sitagliptin Phosphate (Januvia) 25 mg PO DAILY [facility] Last Admin: 11/01/17 10:37 Dose: 25 mg - Labs Labs: 11/01/17 16:41 11/01/17 06:48 PT 12.2 SECONDS (9.7-12.2) 10/21/17 14:23 INR 1.1 10/21/17 14:23 APTT 32 SECONDS (21-34) 10/21/17 14:23 Assessment and Plan - Assessment and Plan (Free Text) Plan: Patient seen and evaluated Plan of care d/w the vice president of software engineering and as documented
--- NOTE | 2017-11-01 12:17 | CP.PCM.PN ---
Subjective - Date & Time of Evaluation Date of Evaluation: 10/31/17 Time of Evaluation: 17:40 Objective - Vital Signs/Intake and Output Vital Signs (last 24 hours): Temp Pulse Resp BP Pulse Ox 98.0 F 70 20 98/65 L 96 11/01/17 07:53 11/01/17 07:53 11/01/17 07:53 11/01/17 10:37 11/01/17 07:53 - Medications Medications: Current Medications Acetaminophen (Tylenol 325mg Tab) 650 mg PO Q6 PRN PRN Reason: Pain, moderate (4-7) Last Admin: 10/22/17 01:37 Dose: 650 mg Aspirin (Aspirin Chewable) 81 mg PO DAILY [facility] Last Admin: 11/01/17 10:36 Dose: 81 mg Clopidogrel Bisulfate (Plavix) 75 mg PO DAILY [facility] Last Admin: 11/01/17 10:37 Dose: 75 mg Donepezil HCl (Aricept) 10 mg PO HS [facility] Last Admin: 10/31/17 21:34 Dose: 10 mg Furosemide (Lasix) 20 mg IVP DAILY [facility] Last Admin: 11/01/17 10:37 Dose: Not Given Guaifenesin (Robitussin) 100 mg PO Q4H PRN PRN Reason: Cough Last Admin: 11/01/17 10:36 Dose: 100 mg Ibuprofen (Motrin Tab) 400 mg PO ONCE PRN PRN Reason: Pain, Mild (1-3) Last Admin: 10/22/17 05:40 Dose: 400 mg Insulin Human Regular (Novolin R) 0 unit SC ACHS [facility] PRN Reason: Protocol Last Admin: 11/01/17 11:31 Dose: Not Given Ipratropium [place] (Atrovent) 0.5 mg IH RQ6 [facility] Last Admin: 11/01/17 07:39 Dose: 0.5 mg Lorazepam (Ativan) 0.5 mg PO Q12 PRN PRN Reason: Anxiety Last Admin: 11/01/17 11:24 Dose: 0.5 mg Mirtazapine (Remeron) 7.5 mg PO HS [facility] Last Admin: 10/31/17 21:33 Dose: 7.5 mg Rosuvastatin Calcium (Crestor) 10 mg PO HS [facility] Last Admin: 10/31/17 21:34 Dose: 10 mg Sitagliptin Phosphate (Januvia) 25 mg PO DAILY [facility] Last Admin: 11/01/17 10:37 Dose: 25 mg - Labs Labs: 11/01/17 06:48 11/01/17 06:48 PT 12.2 SECONDS (9.7-12.2) 10/21/17 14:23 INR 1.1 10/21/17 14:23 APTT 32 SECONDS (21-34) 10/21/17 14:23 Assessment and Plan (1) Alzheimer disease Status: Acute (2) CHF exacerbation Status: Acute (3) Diabetes mellitus type 2 in nonobese Status: Chronic (4) Hypertension Status: Chronic
--- NOTE | 2017-11-01 16:08 | CP.PCM.PN ---
Subjective - Date & Time of Evaluation Date of Evaluation: 11/01/17 Time of Evaluation: 11:00 - Subjective Subjective: Patient seen and examined at bedside. Afebrile. Patient's breathing is improved. Denies coguh, fever and chills. Assessment and Plan: 1. Pleural effusion - Repeat CXR - consider IR consult for thoracentesis if no improvement on CXR 2. CHF - b/l pleural effusions likely secondary to CHF - lasix - BiPAP as needed - aryan Objective - Vital Signs/Intake and Output Vital Signs (last 24 hours): Temp Pulse Resp BP Pulse Ox 99.3 F 89 18 91/60 L 94 L 11/01/17 15:15 11/01/17 15:15 11/01/17 15:15 11/01/17 15:15 11/01/17 15:15 Intake and Output: 11/01/17 11/01/17 06:59 18:59 Intake Total 350 Output Total 1 Balance 349 - Medications Medications: Current Medications Acetaminophen (Tylenol 325mg Tab) 650 mg PO Q6 PRN PRN Reason: Pain, moderate (4-7) Last Admin: 10/22/17 01:37 Dose: 650 mg Aspirin (Aspirin Chewable) 81 mg PO DAILY [facility] Last Admin: 11/01/17 10:36 Dose: 81 mg Clopidogrel Bisulfate (Plavix) 75 mg PO DAILY [facility] Last Admin: 11/01/17 10:37 Dose: 75 mg Donepezil HCl (Aricept) 10 mg PO HS [facility] Last Admin: 10/31/17 21:34 Dose: 10 mg Furosemide (Lasix) 20 mg IVP DAILY [facility] Last Admin: 11/01/17 10:37 Dose: Not Given Guaifenesin (Robitussin) 100 mg PO Q4H PRN PRN Reason: Cough Last Admin: 11/01/17 10:36 Dose: 100 mg Ibuprofen (Motrin Tab) 400 mg PO ONCE PRN PRN Reason: Pain, Mild (1-3) Last Admin: 10/22/17 05:40 Dose: 400 mg Insulin Human Regular (Novolin R) 0 unit SC ACHS [facility] PRN Reason: Protocol Last Admin: 11/01/17 11:31 Dose: Not Given Ipratropium [place] (Atrovent) 0.5 mg IH RQ6 [facility] Last Admin: 11/01/17 13:14 Dose: Not Given Lorazepam (Ativan) 0.5 mg PO Q12 PRN PRN Reason: Anxiety Last Admin: 11/01/17 11:24 Dose: 0.5 mg Mirtazapine (Remeron) 7.5 mg PO HS [facility] Last Admin: 10/31/17 21:33 Dose: 7.5 mg Rosuvastatin Calcium (Crestor) 10 mg PO HS [facility] Last Admin: 10/31/17 21:34 Dose: 10 mg Sitagliptin Phosphate (Januvia) 25 mg PO DAILY [facility] Last Admin: 11/01/17 10:37 Dose: 25 mg - Labs Labs: 11/01/17 06:48 11/01/17 06:48 PT 12.2 SECONDS (9.7-12.2) 10/21/17 14:23 INR 1.1 10/21/17 14:23 APTT 32 SECONDS (21-34) 10/21/17 14:23 Assessment and Plan (1) Pleural effusion Status: Acute (2) CHF (congestive heart failure) Status: Acute
[2017-11-01 16:46] LABS: HEMOGLOBIN 10.4 g/dL (11.0-16.0); MEAN CELL VOLUME 85.3 fL (81.0-99.0); MEAN CORPUSCULAR HEMOGLOBIN 27.1 pg (27.0-31.0); MEAN CORPUSCULAR HGB CONC 31.7 g/dL (33.0-37.0); MEAN PLATELET VOLUME 9.7 fL (7.2-11.7); PLATELET COUNT 262 K/uL (130-400); RBC 3.84 Mil/uL (3.80-5.20); RED CELL DISTRIBUTION WIDTH 15.3 % (11.5-14.5); WHITE BLOOD COUNT 2.1 K/uL (4.8-10.8)
--- NOTE | 2017-11-01 18:23 | RAD ---
PROCEDURE: CHEST RADIOGRAPH, 1 VIEW HISTORY: chf COMPARISON: 10/27/2017 FINDINGS: LUNGS: Persistent pulmonary edema. PLEURA: Improving bilateral pleural effusions. CARDIOVASCULAR: Cardiomegaly. Position/ configuration of pacemaker Satisfactory. OSSEOUS STRUCTURES: No significant abnormalities. VISUALIZED UPPER ABDOMEN: Normal. OTHER FINDINGS: None. IMPRESSION: Persistent essentially stable CHF.
[2017-11-01 18:41] LABS: HYPOCHROMIC SLIGHT; LYMPHOCYTE 66 % (20-40); MICROCYTOSIS SLIGHT; MONOCYTE 30 % (0-10); NEUTROPHIL 2 % (50-75); PLATELET ESTIMATE NORMAL (NORMAL); REACTIVE LYMPHOCYTES 2 % (0-0); TOTAL CELLS COUNTED 100
[2017-11-01 18:42] LABS: LARGE PLATELETS PRESENT
--- NOTE | 2017-11-01 23:11 | CP.PCM.PN ---
Subjective - Date & Time of Evaluation Date of Evaluation: 11/01/17 Time of Evaluation: 17:35 - Subjective Subjective: pt seen and examined at bedside Objective - Vital Signs/Intake and Output Vital Signs (last 24 hours): Temp Pulse Resp BP Pulse Ox 99.3 F 89 18 91/60 L 94 L 11/01/17 15:15 11/01/17 15:15 11/01/17 15:15 11/01/17 15:15 11/01/17 15:15 Intake and Output: 11/01/17 11/02/17 18:59 06:59 Intake Total 350 Output Total 1 Balance 349 - Medications Medications: Current Medications Acetaminophen (Tylenol 325mg Tab) 650 mg PO Q6 PRN PRN Reason: Pain, moderate (4-7) Last Admin: 10/22/17 01:37 Dose: 650 mg Aspirin (Aspirin Chewable) 81 mg PO DAILY [facility] Last Admin: 11/01/17 10:36 Dose: 81 mg Clopidogrel Bisulfate (Plavix) 75 mg PO DAILY [facility] Last Admin: 11/01/17 10:37 Dose: 75 mg Donepezil HCl (Aricept) 10 mg PO HS [facility] Last Admin: 11/01/17 21:20 Dose: 10 mg Furosemide (Lasix) 20 mg IVP DAILY [facility] Last Admin: 11/01/17 10:37 Dose: Not Given Guaifenesin (Robitussin) 100 mg PO Q4H PRN PRN Reason: Cough Last Admin: 11/01/17 10:36 Dose: 100 mg Ibuprofen (Motrin Tab) 400 mg PO ONCE PRN PRN Reason: Pain, Mild (1-3) Last Admin: 10/22/17 05:40 Dose: 400 mg Insulin Human Regular (Novolin R) 0 unit SC [facility] PRN Reason: Protocol Last Admin: 11/01/17 21:52 Dose: Not Given Ipratropium [place] (Atrovent) 0.5 mg IH RQ6 [facility] Last Admin: 11/01/17 19:38 Dose: 0.5 mg Lorazepam (Ativan) 0.5 mg PO Q12 PRN PRN Reason: Anxiety Last Admin: 11/01/17 11:24 Dose: 0.5 mg Mirtazapine (Remeron) 7.5 mg PO [facility] Last Admin: 11/01/17 21:20 Dose: 7.5 mg Rosuvastatin Calcium (Crestor) 10 mg PO HS [facility] Last Admin: 11/01/17 21:20 Dose: 10 mg Sitagliptin Phosphate (Januvia) 25 mg PO DAILY [facility] Last Admin: 11/01/17 10:37 Dose: 25 mg - Labs Labs: 11/01/17 16:41 11/01/17 06:48 PT 12.2 SECONDS (9.7-12.2) 10/21/17 14:23 INR 1.1 10/21/17 14:23 APTT 32 SECONDS (21-34) 10/21/17 14:23 Assessment and Plan (1) Alzheimer disease Status: Acute (2) CHF exacerbation Status: Acute (3) Diabetes mellitus type 2 in nonobese Status: Chronic (4) Hypertension Status: Chronic
[2017-11-02] MEDS: Ipratropium 0.02% Inhal Soln (0.5 mg/2.5 ml) UD IH SCH ×4 (01:05→20:02)
[2017-11-02] MEDS: (Novolin R) Insulin Human Regular 100 units/ml vial SC SCH ×4 (07:24→22:37)
[2017-11-02 10:41] LABS: ARTERIAL BLOOD GAS HCO3 32.4 mmol/L (21-28); ARTERIAL BLOOD GAS O2 SAT 92.7 % (95-98); ARTERIAL BLOOD GAS PCO2 49 mm/Hg (35-45); ARTERIAL BLOOD GAS PH 7.46 (7.35-7.45); ARTERIAL BLOOD GAS PO2 53 mm/Hg (80-100); ARTERIAL BLOOD GAS TCO2 36.3 mmol/L (22-28)
--- NOTE | 2017-11-02 13:27 | CP.PCM.PN ---
Subjective - Date & Time of Evaluation Date of Evaluation: 11/02/17 Time of Evaluation: 11:00 - Subjective Subjective: Patient seen and examined at bedside. Afebrile. Patient's breathing is improved. Patient was lethargic but resting comfortably. Assessment and Plan: 1. Pleural effusion - Repeat CXR showed no change in CHF/ effusion. Patient clinically much improved. 2. CHF - b/l pleural effusions likely secondary to CHF - lasix - BiPAP - duonebs 3. Neutropenia - WBC 2.1 from 1.7 with lymphocytic predominance - etiology unclear, continue to monitor Objective - Vital Signs/Intake and Output Vital Signs (last 24 hours): Temp Pulse Resp BP Pulse Ox 98.9 F 88 18 111/70 95 11/02/17 07:50 11/02/17 12:07 11/02/17 07:50 11/02/17 09:17 11/02/17 07:50 - Medications Medications: Current Medications Acetaminophen (Tylenol 325mg Tab) 650 mg PO Q6 PRN PRN Reason: Pain, moderate (4-7) Last Admin: 10/22/17 01:37 Dose: 650 mg Aspirin (Aspirin Chewable) 81 mg PO DAILY [facility] Last Admin: 11/02/17 09:17 Dose: 81 mg Clopidogrel Bisulfate (Plavix) 75 mg PO DAILY [facility] Last Admin: 11/02/17 09:17 Dose: 75 mg Donepezil HCl (Aricept) 10 mg PO HS [facility] Last Admin: 11/01/17 21:20 Dose: 10 mg Furosemide (Lasix) 20 mg IVP DAILY [facility] Last Admin: 11/02/17 09:17 Dose: 20 mg Guaifenesin (Robitussin) 100 mg PO Q4H PRN PRN Reason: Cough Last Admin: 11/01/17 10:36 Dose: 100 mg Ibuprofen (Motrin Tab) 400 mg PO ONCE PRN PRN Reason: Pain, Mild (1-3) Last Admin: 10/22/17 05:40 Dose: 400 mg Insulin Human Regular (Novolin R) 0 unit SC ACHS [facility] PRN Reason: Protocol Last Admin: 11/02/17 12:39 Dose: Not Given Ipratropium [place] (Atrovent) 0.5 mg IH RQ6 [facility] Last Admin: 11/02/17 07:38 Dose: Not Given Lorazepam (Ativan) 0.5 mg PO Q12 PRN PRN Reason: Anxiety Last Admin: 11/02/17 09:17 Dose: 0.5 mg Mirtazapine (Remeron) 7.5 mg PO HS [facility] Last Admin: 11/01/17 21:20 Dose: 7.5 mg Rosuvastatin Calcium (Crestor) 10 mg PO HS [facility] Last Admin: 11/01/17 21:20 Dose: 10 mg Sitagliptin Phosphate (Januvia) 25 mg PO DAILY [facility] Last Admin: 11/02/17 09:17 Dose: 25 mg - Labs Labs: 11/01/17 16:41 11/01/17 06:48 PT 12.2 SECONDS (9.7-12.2) 10/21/17 14:23 INR 1.1 10/21/17 14:23 APTT 32 SECONDS (21-34) 10/21/17 14:23 Assessment and Plan (1) Pleural effusion Status: Acute (2) CHF (congestive heart failure) Status: Acute
[2017-11-02] MEDS ORDERED: guaiFENesin 100 mg/5 ml Syrup UD PO PRN (18:08)
--- NOTE | 2017-11-02 23:25 | CP.PCM.PN ---
Subjective - Date & Time of Evaluation Date of Evaluation: 11/02/17 Time of Evaluation: 17:05 - Subjective Subjective: Patient seen and evaluated Denies chest pain and dyspnea Objective - Vital Signs/Intake and Output Vital Signs (last 24 hours): Temp Pulse Resp BP Pulse Ox 98.1 F 86 20 95/60 L 98 11/02/17 15:16 11/02/17 15:16 11/02/17 15:16 11/02/17 15:16 11/02/17 15:16 Intake and Output: 11/02/17 11/03/17 18:59 06:59 Intake Total 200 Balance 200 - Medications Medications: Current Medications Acetaminophen (Tylenol 325mg Tab) 650 mg PO Q6 PRN PRN Reason: Pain, moderate (4-7) Last Admin: 10/22/17 01:37 Dose: 650 mg Aspirin (Aspirin Chewable) 81 mg PO DAILY [facility] Last Admin: 11/02/17 09:17 Dose: 81 mg Clopidogrel Bisulfate (Plavix) 75 mg PO DAILY [facility] Last Admin: 11/02/17 09:17 Dose: 75 mg Donepezil HCl (Aricept) 10 mg PO HS [facility] Last Admin: 11/02/17 22:36 Dose: 10 mg Furosemide (Lasix) 20 mg IVP DAILY [facility] Last Admin: 11/02/17 09:17 Dose: 20 mg Guaifenesin (Robitussin) 200 mg PO Q4H PRN PRN Reason: Cough Insulin Human Regular (Novolin R) 0 unit SC ACHS [facility] PRN Reason: Protocol Last Admin: 11/02/17 22:37 Dose: Not Given Ipratropium [place] (Atrovent) 0.5 mg IH RQ6 [facility] Last Admin: 11/02/17 20:02 Dose: 0.5 mg Lorazepam (Ativan) 0.5 mg PO Q12 PRN PRN Reason: Anxiety Last Admin: 11/02/17 23:01 Dose: 0.5 mg Rosuvastatin Calcium (Crestor) 10 mg PO HS [facility] Last Admin: 11/02/17 22:36 Dose: 10 mg Sitagliptin Phosphate (Januvia) 25 mg PO DAILY [facility] Last Admin: 11/02/17 09:17 Dose: 25 mg - Labs Labs: 11/01/17 16:41 11/01/17 06:48 PT 12.2 SECONDS (9.7-12.2) 10/21/17 14:23 INR 1.1 10/21/17 14:23 APTT 32 SECONDS (21-34) 10/21/17 14:23
--- NOTE | 2017-11-02 23:42 | CP.PCM.PN ---
Subjective - Date & Time of Evaluation Date of Evaluation: 11/02/17 Time of Evaluation: 17:35 - Subjective Subjective: Pt seen and examined at bedside Objective - Vital Signs/Intake and Output Vital Signs (last 24 hours): Temp Pulse Resp BP Pulse Ox 98.1 F 86 20 95/60 L 98 11/02/17 15:16 11/02/17 15:16 11/02/17 15:16 11/02/17 15:16 11/02/17 15:16 Intake and Output: 11/02/17 11/03/17 18:59 06:59 Intake Total 200 Balance 200 - Medications Medications: Current Medications Acetaminophen (Tylenol 325mg Tab) 650 mg PO Q6 PRN PRN Reason: Pain, moderate (4-7) Last Admin: 10/22/17 01:37 Dose: 650 mg Aspirin (Aspirin Chewable) 81 mg PO DAILY [facility] Last Admin: 11/02/17 09:17 Dose: 81 mg Clopidogrel Bisulfate (Plavix) 75 mg PO DAILY [facility] Last Admin: 11/02/17 09:17 Dose: 75 mg Donepezil HCl (Aricept) 10 mg PO HS [facility] Last Admin: 11/02/17 22:36 Dose: 10 mg Furosemide (Lasix) 20 mg IVP DAILY [facility] Last Admin: 11/02/17 09:17 Dose: 20 mg Guaifenesin (Robitussin) 200 mg PO Q4H PRN PRN Reason: Cough Insulin Human Regular (Novolin R) 0 unit SC ACHS [facility] PRN Reason: Protocol Last Admin: 11/02/17 22:37 Dose: Not Given Ipratropium [place] (Atrovent) 0.5 mg IH RQ6 [facility] Last Admin: 11/02/17 20:02 Dose: 0.5 mg Lorazepam (Ativan) 0.5 mg PO Q12 PRN PRN Reason: Anxiety Last Admin: 11/02/17 23:01 Dose: 0.5 mg Rosuvastatin Calcium (Crestor) 10 mg PO HS [facility] Last Admin: 11/02/17 22:36 Dose: 10 mg Sitagliptin Phosphate (Januvia) 25 mg PO DAILY [facility] Last Admin: 11/02/17 09:17 Dose: 25 mg - Labs Labs: 11/01/17 16:41 11/01/17 06:48 PT 12.2 SECONDS (9.7-12.2) 10/21/17 14:23 INR 1.1 10/21/17 14:23 APTT 32 SECONDS (21-34) 10/21/17 14:23 Assessment and Plan (1) Alzheimer disease Status: Acute (2) CHF exacerbation Status: Acute (3) Diabetes mellitus type 2 in nonobese Status: Chronic (4) Hypertension Status: Chronic
--- NOTE | 2017-11-03 01:11 | CON ---
DATE: CHIEF COMPLAINT: The patient was referred by Dr. Bonilla for evaluation, co-,management of patient's dementia and having bouts of agitation. This is a collateral information given by her son who is at bedside as the patient is a very poor historian. HISTORY OF PRESENT ILLNESS: The patient is a 77-year-old female with history of dementia. As per chart, history of Alzheimer's dementia, history of CHF, ejection fraction of 20%, hypertension, recent pacemaker insertion. The patient was referred for admission for weakness, abdominal pain, shortness of breath. Referred for management as the patient is having bouts of agitation. The patient states that she does not want to eat and was complaining about the food served. According to the son, the patient does not like the hospital and also refusing to eat hospital food. The patient was offered food, she stated she does not like to eat hospital food. She said she wants some chicken soup and then was asking her son to bring something from home. Today, she is restless, she was given patient's Ativan p.r.n. as well as Aricept and the patient is on Aricept 10 mg at bedtime, Ativan 0.5 mg every 12 hours p.r.n. and Remeron 7.5 mg at bedtime. Appetite is very poor. The patient clearly expressed that she does not like the hospital food. PAST PSYCH HISTORY: History of dementia, history of possible delirium. ALLERGIES: NO KNOWN ALLERGIES. MEDICAL HISTORY: The patient has history of diabetes, hypertension, WI, dilated cardiomyopathy, CHF, Alzheimer, history of ankle fracture, vertigo. SOCIAL HISTORY: The patient lives with her family. VITAL SIGNS: Temperature is 98.9, pulse 88, blood pressure 111/70, respiration is 18, and oxygen saturation is 95%. LABORATORY DATA: The patient had an ABG done. Oxygen saturation 92.7. Blood sugar is 184. The patient has signs of UTI, +1 for blood, the patient has urine wbc, urine rbc as well as occasional bacteria and hyaline cast. REVIEW OF MEDICATIONS: The patient is on mirtazapine as well as Januvia, Lasix, Plavix, Robitussin. REVIEW OF SYSTEMS: GENERAL: The patient is very uncooperative, restless. She says, she does not want to eat. She has periods of confusion. She was seen in her room, not in acute respiratory distress. SKIN: No diaphoresis. HEENT: No headache or dizziness. NECK: Supple. RESPIRATORY: No dyspnea. CARDIOVASCULAR: No chest pain. GASTROINTESTINAL: Has very poor appetite. EXTREMITIES: The patient is moving extremities. NEUROLOGIC: Alert with periods of confusion. GENITOURINARY: No dysuria. MUSCULOSKELETAL: Feels weak. NEURO: Alert with periods of confusion. Very uncooperative today. MENTAL STATUS EXAMINATION: Elderly female who is about 5 feet, 97 pounds. The patient is very uncooperative, anxious, irritable. She states she does not want to be bothered. Speech is conversant. Affect is restricted. Mood is dysphoric. Thought process is confused. Thought content, no overt psychosis. No suicidal or homicidal ideation. Attention and memory seem to be limited. Insight and judgement limited. Impulse control is guarded. IMPRESSION: Delirium, multifactorial. To consider urinary tract infection as well as superimposed dementia, Alzheimer's type, with mood changes. May continue the Ativan p.r.n. 0.5 every 12 hours p.r.n. as well as the Aricept 10 mg at bedtime and Remeron 7.5 mg at bedtime. If the patient's appetite will continue to deteriorate, we will try to consider holding the Aricept if the patient's appetite is poor. The patient does not like the hospital. According to the nurse, she does not want the hospital food and states she wants home made food. Also, her labs showed evidence of urinary tract infection. We will discuss with Dr. Bonilla if the patient may need antibiotic. Continue treatment plan as outlined. Jose Pepper MD [facility]
[2017-11-03] MEDS: Ipratropium 0.02% Inhal Soln (0.5 mg/2.5 ml) UD IH SCH ×4 (01:12→19:24)
[2017-11-03] MEDS: (Novolin R) Insulin Human Regular 100 units/ml vial SC SCH ×4 (07:52→21:10)
[2017-11-03] MEDS: Multiple Vitamins Tab PO SCH (10:44)
--- NOTE | 2017-11-03 14:38 | CP.PCM.PN ---
Subjective - Date & Time of Evaluation Date of Evaluation: 11/03/17 Time of Evaluation: 11:30 - Subjective Subjective: Patient seen and examined today, awake alert, oriented to person and place periods of confusion noted , denies any chest pain dizziness, c/o cough and sob with minimal exertions , and un able to any ADL without SOB , Nurses reported de saturates in 80"s without o2 from standing from bed to bed side commode Objective - Vital Signs/Intake and Output Vital Signs (last 24 hours): Temp Pulse Resp BP Pulse Ox 97.4 F L 84 18 92/61 L 99 11/03/17 08:20 11/03/17 08:20 11/03/17 08:20 11/03/17 10:52 11/03/17 08:20 Intake and Output: 11/03/17 11/03/17 06:59 18:59 Intake Total 370 Balance 370 - Medications Medications: Current Medications Acetaminophen (Tylenol 325mg Tab) 650 mg PO Q6 PRN PRN Reason: Pain, moderate (4-7) Last Admin: 10/22/17 01:37 Dose: 650 mg Aspirin (Aspirin Chewable) 81 mg PO DAILY [facility] Last Admin: 11/03/17 10:42 Dose: 81 mg Clopidogrel Bisulfate (Plavix) 75 mg PO DAILY [facility] Last Admin: 11/03/17 10:43 Dose: 75 mg Donepezil HCl (Aricept) 10 mg PO HS [facility] Last Admin: 11/02/17 22:36 Dose: 10 mg Furosemide (Lasix) 20 mg IVP DAILY [facility] Last Admin: 11/03/17 10:52 Dose: Not Given Guaifenesin (Robitussin) 200 mg PO Q4H PRN PRN Reason: Cough Insulin Human Regular (Novolin R) 0 unit SC ACHS [facility] PRN Reason: Protocol Last Admin: 11/03/17 11:53 Dose: Not Given Ipratropium [place] (Atrovent) 0.5 mg IH RQ6 [facility] Last Admin: 11/03/17 13:15 Dose: Not Given Lorazepam (Ativan) 0.5 mg PO Q12 PRN PRN Reason: Anxiety Last Admin: 11/02/17 23:01 Dose: 0.5 mg Multivitamins (Hexavitamin) 1 tab PO DAILY [facility] Last Admin: 11/03/17 10:44 Dose: 1 tab Rosuvastatin Calcium (Crestor) 10 mg PO HS [facility] Last Admin: 11/02/17 22:36 Dose: 10 mg Sitagliptin Phosphate (Januvia) 25 mg PO DAILY [facility] Last Admin: 11/03/17 10:43 Dose: 25 mg - Labs Labs: 11/01/17 16:41 11/01/17 06:48 PT 12.2 SECONDS (9.7-12.2) 10/21/17 14:23 INR 1.1 10/21/17 14:23 APTT 32 SECONDS (21-34) 10/21/17 14:23 - Constitutional Appears: Chronically Ill, Other (moderate resp. distress ) - ENT Exam ENT Exam: Mucous Membranes Moist - Respiratory Exam Respiratory Exam: Decreased Breath Sounds (b/l), Rales, Rhonchi, Respiratory Distress (moderate) - Cardiovascular Exam Cardiovascular Exam: REGULAR RHYTHM, +S1, +S2 - GI/Abdominal Exam GI & Abdominal Exam: Soft, Normal Bowel Sounds - Extremities Exam Extremities Exam: Full ROM, Pedal Edema - Neurological Exam Neurological Exam: Alert, Awake (periods of confusion ) Assessment and Plan - Assessment and Plan (Free Text) Assessment: A/P 77 year old female with PMHx of CHF (10% EF), HTN, s/p pacemaker insertion admitted for weakness , hypotension, SOB exc. CHF and pneumonia and persistent pleural effusion s/p - thoracentesis abg-shows hypoxia Echo 09/14/17- EF 10-15%; diastolic dysfunction, mild AR/MR; pulm HTN, pulm valve regurg. CT abd/pelv- moderate b/l pleural effusions Patient de saturates in 80's upon minimal exertion, and discussed plan with DR. Nolan, recommends home oxygen we will continue with lasix , o2 and duoneb and arrange home oxygen The above plan discussed with Dr. Bonilla and agrees Patient require home oxygen secondary to hypoxia , low ejection fraction and chronic CHF ,and to prevent further damage to the heart and lungs and improve SOB. Without continuous use of oxygen patient condition will deteriorate, leading to continued exacerbations and to medical harm.
--- NOTE | 2017-11-03 16:34 | CP.PCM.PN ---
Subjective - Date & Time of Evaluation Date of Evaluation: 11/03/17 Time of Evaluation: 10:40 - Subjective Subjective: Patient seen and examined at bedside. Afebrile. Patient still has increased work of breathing even on 3L NC. Patient was lethargic but resting comfortably. Assessment and Plan: 1. Pleural effusion - CXR 11/01: improving bilateral pleural effusions - Repeat CT as patient is not progressing as quickly as expected 2. CHF - CXR: b/l pleural effusions likely secondary to CHF - lasix - BiPAP - duonebs 3. Neutropenia - WBC 2.1 from 1.7 with lymphocytic predominance - likely due to remeron, d/c'ed Objective - Vital Signs/Intake and Output Vital Signs (last 24 hours): Temp Pulse Resp BP Pulse Ox 97.8 F 85 19 102/66 96 11/03/17 15:00 11/03/17 15:00 11/03/17 15:00 11/03/17 15:00 11/03/17 15:00 Intake and Output: 11/03/17 11/03/17 06:59 18:59 Intake Total 370 Balance 370 - Medications Medications: Current Medications Acetaminophen (Tylenol 325mg Tab) 650 mg PO Q6 PRN PRN Reason: Pain, moderate (4-7) Last Admin: 10/22/17 01:37 Dose: 650 mg Aspirin (Aspirin Chewable) 81 mg PO DAILY [facility] Last Admin: 11/03/17 10:42 Dose: 81 mg Clopidogrel Bisulfate (Plavix) 75 mg PO DAILY [facility] Last Admin: 11/03/17 10:43 Dose: 75 mg Donepezil HCl (Aricept) 10 mg PO HS [facility] Last Admin: 11/02/17 22:36 Dose: 10 mg Furosemide (Lasix) 20 mg IVP DAILY [facility] Last Admin: 11/03/17 10:52 Dose: Not Given Guaifenesin (Robitussin) 200 mg PO Q4H PRN PRN Reason: Cough Insulin Human Regular (Novolin R) 0 unit SC ACHS [facility] PRN Reason: Protocol Last Admin: 11/03/17 11:53 Dose: Not Given Ipratropium [place] (Atrovent) 0.5 mg IH RQ6 [facility] Last Admin: 11/03/17 13:15 Dose: Not Given Lorazepam (Ativan) 0.5 mg PO Q12 PRN PRN Reason: Anxiety Last Admin: 11/02/17 23:01 Dose: 0.5 mg Multivitamins (Hexavitamin) 1 tab PO DAILY [facility] Last Admin: 11/03/17 10:44 Dose: 1 tab Rosuvastatin Calcium (Crestor) 10 mg PO HS [facility] Last Admin: 11/02/17 22:36 Dose: 10 mg Sitagliptin Phosphate (Januvia) 25 mg PO DAILY [facility] Last Admin: 11/03/17 10:43 Dose: 25 mg - Labs Labs: 11/01/17 16:41 11/01/17 06:48 PT 12.2 SECONDS (9.7-12.2) 10/21/17 14:23 INR 1.1 10/21/17 14:23 APTT 32 SECONDS (21-34) 10/21/17 14:23 Assessment and Plan (1) Pleural effusion Status: Acute (2) CHF (congestive heart failure) Status: Acute
--- NOTE | 2017-11-03 20:15 | CP.PCM.PN ---
Subjective - Date & Time of Evaluation Date of Evaluation: 11/03/17 Time of Evaluation: 09:05 - Subjective Subjective: Patient seen and evaluated Dyspnea present but better b/l effusions Acute on Chronic systolic CHF Will continue IV Lasix Objective - Vital Signs/Intake and Output Vital Signs (last 24 hours): Temp Pulse Resp BP Pulse Ox 97.8 F 84 19 102/66 96 11/03/17 15:00 11/03/17 16:00 11/03/17 15:00 11/03/17 15:00 11/03/17 15:00 - Medications Medications: Current Medications Acetaminophen (Tylenol 325mg Tab) 650 mg PO Q6 PRN PRN Reason: Pain, moderate (4-7) Last Admin: 10/22/17 01:37 Dose: 650 mg Aspirin (Aspirin Chewable) 81 mg PO DAILY [facility] Last Admin: 11/03/17 10:42 Dose: 81 mg Clopidogrel Bisulfate (Plavix) 75 mg PO DAILY [facility] Last Admin: 11/03/17 10:43 Dose: 75 mg Donepezil HCl (Aricept) 10 mg PO HS [facility] Last Admin: 11/02/17 22:36 Dose: 10 mg Furosemide (Lasix) 20 mg IVP DAILY [facility] Last Admin: 11/03/17 10:52 Dose: Not Given Guaifenesin (Robitussin) 200 mg PO Q4H PRN PRN Reason: Cough Insulin Human Regular (Novolin R) 0 unit SC ACHS [facility] PRN Reason: Protocol Last Admin: 11/03/17 17:10 Dose: Not Given Ipratropium [place] (Atrovent) 0.5 mg IH RQ6 [facility] Last Admin: 11/03/17 19:24 Dose: Not Given Lorazepam (Ativan) 0.5 mg PO Q12 PRN PRN Reason: Anxiety Last Admin: 11/02/17 23:01 Dose: 0.5 mg Multivitamins (Hexavitamin) 1 tab PO DAILY [facility] Last Admin: 11/03/17 10:44 Dose: 1 tab Rosuvastatin Calcium (Crestor) 10 mg PO HS [facility] Last Admin: 11/02/17 22:36 Dose: 10 mg Sitagliptin Phosphate (Januvia) 25 mg PO DAILY [facility] Last Admin: 11/03/17 10:43 Dose: 25 mg - Labs Labs: 11/01/17 16:41 11/01/17 06:48 PT 12.2 SECONDS (9.7-12.2) 10/21/17 14:23 INR 1.1 10/21/17 14:23 APTT 32 SECONDS (21-34) 10/21/17 14:23
--- NOTE | 2017-11-03 23:16 | CP.PCM.PN ---
Subjective - Date & Time of Evaluation Date of Evaluation: 11/03/17 Time of Evaluation: 16:00 - Subjective Subjective: Patient seen and examined at bedside. Afebrile. Patient still has increased work of breathing even on 3L NC. Patient was lethargic but resting comfortably. Objective - Vital Signs/Intake and Output Vital Signs (last 24 hours): Temp Pulse Resp BP Pulse Ox 97.8 F 84 19 102/66 96 11/03/17 15:00 11/03/17 16:00 11/03/17 15:00 11/03/17 15:00 11/03/17 15:00 Intake and Output: 11/03/17 11/04/17 18:59 06:59 Intake Total 240 Balance 240 - Medications Medications: Current Medications Acetaminophen (Tylenol 325mg Tab) 650 mg PO Q6 PRN PRN Reason: Pain, moderate (4-7) Last Admin: 10/22/17 01:37 Dose: 650 mg Aspirin (Aspirin Chewable) 81 mg PO DAILY [facility] Last Admin: 11/03/17 10:42 Dose: 81 mg Clopidogrel Bisulfate (Plavix) 75 mg PO DAILY [facility] Last Admin: 11/03/17 10:43 Dose: 75 mg Donepezil HCl (Aricept) 10 mg PO HS [facility] Last Admin: 11/03/17 21:07 Dose: 10 mg Furosemide (Lasix) 20 mg IVP DAILY [facility] Last Admin: 11/03/17 10:52 Dose: Not Given Guaifenesin (Robitussin) 200 mg PO Q4H PRN PRN Reason: Cough Insulin Human Regular (Novolin R) 0 unit SC ACHS [facility] PRN Reason: Protocol Last Admin: 11/03/17 21:10 Dose: Not Given Ipratropium [place] (Atrovent) 0.5 mg IH RQ6 [facility] Last Admin: 11/03/17 19:24 Dose: Not Given Lorazepam (Ativan) 0.5 mg PO Q12 PRN PRN Reason: Anxiety Last Admin: 11/03/17 23:12 Dose: 0.5 mg Multivitamins (Hexavitamin) 1 tab PO DAILY [facility] Last Admin: 11/03/17 10:44 Dose: 1 tab Rosuvastatin Calcium (Crestor) 10 mg PO HS [facility] Last Admin: 11/03/17 21:07 Dose: 10 mg Sitagliptin Phosphate (Januvia) 25 mg PO DAILY [facility] Last Admin: 11/03/17 10:43 Dose: 25 mg - Labs Labs: 11/01/17 16:41 11/01/17 06:48 PT 12.2 SECONDS (9.7-12.2) 10/21/17 14:23 INR 1.1 10/21/17 14:23 APTT 32 SECONDS (21-34) 10/21/17 14:23 Assessment and Plan (1) Alzheimer disease Status: Acute (2) CHF exacerbation Status: Acute (3) Diabetes mellitus type 2 in nonobese Status: Chronic (4) Hypertension Status: Chronic - Assessment and Plan (Free Text) Plan: Assessment and Plan: 1. Pleural effusion - CXR 11/01: improving bilateral pleural effusions - Repeat CT as patient is not progressing as quickly as expected 2. CHF - CXR: b/l pleural effusions likely secondary to CHF - lasix - BiPAP - duonebs 3. Neutropenia - WBC 2.1 from 1.7 with lymphocytic predominance - likely due to remeron, d/c'ed
--- NOTE | 2017-11-03 23:59 | PN ---
DATE: 11/03/2017 SUBJECTIVE: The patient is seen. The patient is irritable, appears in confusion, refusing to eat. She states she does not want to eat the hospital food. The patient's behavior is still irritable at times but has been for most manageable. She has been compliant with meds. The patient was given last night Ativan p.r.n. The patient is on Ativan p.r.n., Aricept taking for dementia. The patient was taking out Remeron because the patient's WBC is still low at 2.1, to avoid the risk of further neutropenia which can be a side effect of SSRI, especially Remeron. Last WBC count is 2.1. The patient was on Aricept and on Ativan. PHYSICAL EXAMINATION: VITAL SIGNS: Temperature is 97.8, pulse is 84, blood pressure 102/66, respirations 19, oxygen saturation is 96%. REVIEW OF SYSTEMS: GENERAL: The patient is alert, verbal, irritable, still appears in confusion. The patient wants to be left alone in her room. The patient states she does not want to eat. SKIN: No diaphoresis. HEENT: No headaches. No dizziness. NECK: Supple. RESPIRATORY: No dyspnea. CARDIOVASCULAR: No chest pain. GASTROINTESTINAL: Very poor appetite. Note that the patient is on Aricept. EXTREMITIES: Moves extremities. MUSCULOSKELETAL: Feels weak. NEUROLOGIC: Alert, appears in confusion. GENITOURINARY: No dysuria. MENTAL STATUS EXAMINATION: Elderly female, who looks stated age, very irritable with periods of confusion. Speech spontaneous. Affect is reactive. Thought process, confused. Thought content, the patient is refusing to eat. No psychosis. No suicidal or homicidal ideation. Attention and memory seem to be limited. Insight and judgment limited. Impulse control is fair. IMPRESSION: Delirium, multifactorial as well as superimposed dementia, Alzheimer's type, with mood changes. PLAN AND RECOMMENDATIONS: Patient seen. Meds reviewed. We will continue Aricept 10 mg at bedtime as well as Ativan 0.5 every 12 hours p.r.n. The patient was taken off Remeron due to her hematologic issues. I will also try to repeat her UA to see if the patient still has evidence of urinary tract infection. The last urinalysis was done last month. Jose Pepper MD [facility] # [id number] [facility]
[2017-11-04] MEDS: Ipratropium 0.02% Inhal Soln (0.5 mg/2.5 ml) UD IH SCH ×4 (01:07→19:15)
[2017-11-04 07:53] LABS: BASO % 0.3 % (0.0-2.0); EOS # 0.1 K/uL (0.0-0.7); EOS % 2.1 % (0.0-4.0); HEMOGLOBIN 10.7 g/dL (11.0-16.0); LYMPH # 0.9 K/uL (1.0-4.3); LYMPH % 37.9 % (20.0-40.0); MEAN CELL VOLUME 84.8 fL (81.0-99.0); MEAN CORPUSCULAR HGB CONC 31.8 g/dL (33.0-37.0); MONO # 0.8 K/uL (0.0-0.8); MONO % 31.9 % (0.0-10.0); NEUT # 0.7 K/uL (1.8-7.0); NEUT % 27.8 % (50.0-75.0); NRBC % 0.2 % (0.0-2.0); RBC 3.95 Mil/uL (3.80-5.20); RED CELL DISTRIBUTION WIDTH 15.1 % (11.5-14.5); WHITE BLOOD COUNT 2.4 K/uL (4.8-10.8)
[2017-11-04 08:05] LABS: PLATELET COUNT 387 K/uL (130-400)
[2017-11-04 08:16] LABS: BLOOD UREA NITROGEN 42 mg/dL (7-17); CALCIUM 8.7 mg/dl (8.6-10.4); GFR AFRICAN-AMERICAN > 60; GFR NON-AFRICAN AMERICAN > 60
[2017-11-04] MEDS: (Novolin R) Insulin Human Regular 100 units/ml vial SC SCH ×5 (08:27→21:50)
[2017-11-04 08:54] LABS: BANDS 4 % (0-2); LYMPHOCYTE 41 % (20-40); MONOCYTE 32 % (0-10); NEUTROPHIL 23 % (50-75); PLATELET ESTIMATE NORMAL (NORMAL); TOTAL CELLS COUNTED 100
[2017-11-04 08:55] LABS: ANISOCYTOSIS SLIGHT; POLYCHROMIC SLIGHT
[2017-11-04 08:56] LABS: HYPOCHROMIC MODERATE
[2017-11-04 08:57] LABS: LARGE PLATELETS PRESENT
[2017-11-04] MEDS: Multiple Vitamins Tab PO SCH (10:48)
--- NOTE | 2017-11-04 11:06 | CP.PCM.PN ---
<Tony Alberts - Last Filed: 11/04/17 13:32> Subjective - Date & Time of Evaluation Date of Evaluation: 11/04/17 Time of Evaluation: 09:10 - Subjective Subjective: PGY2 Cardiology Progress Note for Dr. Robledo Patient seen and examined at bedside. No acute distress. We had an extensive discussion about her current cardiac status and her persistent pulmonary effusions. Patient with pacemaker placed at [facility] in 2017 (working properly) . Denies dizziness, chest pain, SOB, or LE edema. 12-point review of systems is otherwise negative without any additional acute complaints. Objective - Vital Signs/Intake and Output Vital Signs (last 24 hours): Temp Pulse Resp BP Pulse Ox 97.5 F L 81 18 105/72 97 11/04/17 07:05 11/04/17 08:00 11/04/17 07:05 11/04/17 07:05 11/04/17 07:05 Intake and Output: 11/04/17 11/04/17 06:59 18:59 Intake Total 360 Balance 360 - Medications Medications: Current Medications Acetaminophen (Tylenol 325mg Tab) 650 mg PO Q6 PRN PRN Reason: Pain, moderate (4-7) Last Admin: 10/22/17 01:37 Dose: 650 mg Aspirin (Aspirin Chewable) 81 mg PO DAILY [facility] Last Admin: 11/04/17 10:48 Dose: 81 mg Clopidogrel Bisulfate (Plavix) 75 mg PO DAILY [facility] Last Admin: 11/04/17 10:48 Dose: 75 mg Donepezil HCl (Aricept) 10 mg PO HS [facility] Last Admin: 11/03/17 21:07 Dose: 10 mg Furosemide (Lasix) 20 mg IVP DAILY [facility] Guaifenesin (Robitussin) 200 mg PO Q4H PRN PRN Reason: Cough Insulin Human Regular (Novolin R) 0 unit SC ACHS [facility] PRN Reason: Protocol Last Admin: 11/04/17 08:27 Dose: 1 unit Ipratropium [place] (Atrovent) 0.5 mg IH RQ6 [facility] Last Admin: 11/04/17 07:52 Dose: Not Given Lorazepam (Ativan) 0.5 mg PO Q12 PRN PRN Reason: Anxiety Last Admin: 11/03/17 23:12 Dose: 0.5 mg Multivitamins (Hexavitamin) 1 tab PO DAILY [facility] Last Admin: 11/04/17 10:48 Dose: 1 tab Rosuvastatin Calcium (Crestor) 10 mg PO HS [facility] Last Admin: 11/03/17 21:07 Dose: 10 mg Sitagliptin Phosphate (Januvia) 25 mg PO DAILY [facility] Last Admin: 11/04/17 10:48 Dose: 25 mg - Labs Labs: 11/04/17 07:46 11/04/17 07:46 PT 12.2 SECONDS (9.7-12.2) 10/21/17 14:23 INR 1.1 10/21/17 14:23 APTT 32 SECONDS (21-34) 10/21/17 14:23 - Additional Findings Additional findings: - Constitutional Appears: No Acute Distress - Head Exam Head Exam: ATRAUMATIC, NORMAL INSPECTION, NORMOCEPHALIC - Eye Exam Eye Exam: EOMI, Normal appearance, PERRL Pupil Exam: NORMAL ACCOMODATION, PERRL - Respiratory Exam Respiratory Exam: Decreased Breath Sounds, Rales (mild). absent: Rhonchi, Wheezes - Cardiovascular Exam Cardiovascular Exam: REGULAR RHYTHM, +S1, +S2. absent: Murmur Note: device palpated at left chest wall; based on size, likely ICD. - GI/Abdominal Exam GI & Abdominal Exam: Soft, Normal Bowel Sounds. absent: Tenderness - Rectal Exam Rectal Exam: Deferred - Extremities Exam Extremities Exam: Full ROM, Normal Capillary Refill, Normal Inspection. absent : Joint Swelling, Pedal Edema - Neurological Exam Neurological exam: Alert - Psychiatric Exam Psychiatric exam: Normal Affect - Skin Skin Exam: Warm, Dry, Intact Assessment and Plan - Assessment and Plan (Free Text) Assessment: Acute on Chronic Systolic CHF 11/04: Inc to Lasix 20mg IVP BID (hold for SBP < 90). Breathing better with slowly improving pleural effusions. Ordered incentive spirometer and explained its use with the patient. 10/31-11/01: b/l pleural effusion, followed by Pulmonology, Dr. Nolan - if pleural effusion does not improve, plan for thoracentesis (f/u cxr) 10/28: Patient had pacemaker placed at [facility] in 2016; in process of contacting device rep (non-urgent as ICD is functioning well). 10/26: patient became mildly hypotensive today at BP 96/62. Lasix decreased to 20mg IVP. -Based upon palpation, device at L chest wall is likely an ICD. Further investigating will be performed to uncover the type of device, company, and rep contact information. -She states she had a "pacemaker" placed in 2017, but she is unsure what type , by which doctor, at which hospital, and she also lost the card that was given to her (I also spoke to both of her sons, who were not sure of the details). Echo 09/14/17- EF 10-15%; diastolic dysfunction, mild AR/MR; pulm HTN, pulm valve regurg. see full report. 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 Continue ASA, Plavix, Statins (B blockers and JEANNE I) HTN Stable BP, continue current managment 10/28: BP 99/66, stable. continue to monitor 10/26: patient became mildly hypotensive today at BP 96/62. Lasix decreased to 20mg IVP. Controlled, monitor Case Discussed with Dr. Venkat Alberts, PGY2 <Kalen Robledo - Last Filed: 11/05/17 09:56> Objective - Vital Signs/Intake and Output Vital Signs (last 24 hours): Temp Pulse Resp BP Pulse Ox 97.8 F 80 20 97/68 L 97 11/05/17 04:00 11/05/17 08:59 11/05/17 04:39 11/05/17 09:45 11/05/17 04:39 Intake and Output: 11/05/17 11/05/17 06:59 18:59 Intake Total 400 Balance 400 - Medications Medications: Current Medications Acetaminophen (Tylenol 325mg Tab) 650 mg PO Q6 PRN PRN Reason: Pain, moderate (4-7) Last Admin: 10/22/17 01:37 Dose: 650 mg Aspirin (Aspirin Chewable) 81 mg PO DAILY [facility] Last Admin: 11/05/17 09:41 Dose: 81 mg Clopidogrel Bisulfate (Plavix) 75 mg PO DAILY [facility] Last Admin: 11/05/17 09:41 Dose: 75 mg Donepezil HCl (Aricept) 10 mg PO HS [facility] Last Admin: 11/04/17 22:02 Dose: 10 mg Furosemide (Lasix) 20 mg IVP BID [facility] Last Admin: 11/05/17 09:45 Dose: 20 mg Guaifenesin (Robitussin) 200 mg PO Q4H PRN PRN Reason: Cough Insulin Human Regular (Novolin R) 0 unit SC ACHS [facility] PRN Reason: Protocol Last Admin: 11/05/17 08:11 Dose: 1 unit Ipratropium [place] (Atrovent) 0.5 mg IH RQ6 [facility] Last Admin: 11/05/17 07:40 Dose: 0.5 mg Lorazepam (Ativan) 0.5 mg PO Q12 PRN PRN Reason: Anxiety Last Admin: 11/04/17 22:02 Dose: 0.5 mg Multivitamins (Hexavitamin) 1 tab PO DAILY [facility] Last Admin: 11/05/17 09:41 Dose: 1 tab Rosuvastatin Calcium (Crestor) 10 mg PO HS [facility] Last Admin: 11/04/17 22:02 Dose: 10 mg Sitagliptin Phosphate (Januvia) 25 mg PO DAILY [facility] Last Admin: 11/05/17 09:41 Dose: 25 mg - Labs Labs: 11/04/17 07:46 11/04/17 07:46 PT 12.2 SECONDS (9.7-12.2) 10/21/17 14:23 INR 1.1 10/21/17 14:23 APTT 32 SECONDS (21-34) 10/21/17 14:23 Assessment and Plan - Assessment and Plan (Free Text) Plan: Patient seen and evaluated personally by me Plan of care d/w the medical office scheduler and as documented
--- NOTE | 2017-11-04 15:07 | CP.PCM.PN ---
Subjective - Date & Time of Evaluation Date of Evaluation: 11/04/17 Time of Evaluation: 08:50 - Subjective Subjective: Patient seen and examined at bedside. Afebrile. Patient is much more alert and responsive though still drowsy today. Crackles are again heard on examination. Assessment and Plan: 1. Pleural effusion - CXR /3: improving bilateral pleural effusions - Repeat CT as patient is not progressing as quickly as expected 2. CHF - CXR: b/l pleural effusions likely secondary to CHF - lasix - BiPAP - duonebs 3. Neutropenia - WBC 2.4 from 2.1, improving after d/c of remeron - likely due to remeron, d/c'ed Objective - Vital Signs/Intake and Output Vital Signs (last 24 hours): Temp Pulse Resp BP Pulse Ox 97.5 F L 86 18 105/72 97 11/04/17 07:05 11/04/17 14:10 11/04/17 07:05 11/04/17 07:05 11/04/17 07:05 Intake and Output: 11/04/17 11/04/17 06:59 18:59 Intake Total 360 Balance 360 - Medications Medications: Current Medications Acetaminophen (Tylenol 325mg Tab) 650 mg PO Q6 PRN PRN Reason: Pain, moderate (4-7) Last Admin: 10/22/17 01:37 Dose: 650 mg Aspirin (Aspirin Chewable) 81 mg PO DAILY [facility] Last Admin: 11/04/17 10:48 Dose: 81 mg Clopidogrel Bisulfate (Plavix) 75 mg PO DAILY [facility] Last Admin: 11/04/17 10:48 Dose: 75 mg Donepezil HCl (Aricept) 10 mg PO HS [facility] Last Admin: 11/03/17 21:07 Dose: 10 mg Furosemide (Lasix) 20 mg IVP BID [facility] Guaifenesin (Robitussin) 200 mg PO Q4H PRN PRN Reason: Cough Insulin Human Regular (Novolin R) 0 unit SC ACHS [facility] PRN Reason: Protocol Last Admin: 11/04/17 12:32 Dose: 2 unit Ipratropium [place] (Atrovent) 0.5 mg IH RQ6 [facility] Last Admin: 11/04/17 13:16 Dose: 0.5 mg Lorazepam (Ativan) 0.5 mg PO Q12 PRN PRN Reason: Anxiety Last Admin: 11/03/17 23:12 Dose: 0.5 mg Multivitamins (Hexavitamin) 1 tab PO DAILY [facility] Last Admin: 11/04/17 10:48 Dose: 1 tab Rosuvastatin Calcium (Crestor) 10 mg PO HS [facility] Last Admin: 11/03/17 21:07 Dose: 10 mg Sitagliptin Phosphate (Januvia) 25 mg PO DAILY [facility] Last Admin: 11/04/17 10:48 Dose: 25 mg - Labs Labs: 11/04/17 07:46 11/04/17 07:46 PT 12.2 SECONDS (9.7-12.2) 10/21/17 14:23 INR 1.1 10/21/17 14:23 APTT 32 SECONDS (21-34) 10/21/17 14:23 Assessment and Plan (1) Pleural effusion Status: Acute (2) CHF (congestive heart failure) Status: Acute
--- NOTE | 2017-11-04 19:37 | PN ---
DATE: SUBJECTIVE: The patient is seen. She is more comfortable today. The patient seems to be better when some relatives are present. Her significant other will be bringing food from home later. The patient does not want to go for subacute rehab. She wants to go home once she is medically cleared. The patient's review of her labs, WBC now is 2.4. The patient has been off Remeron. No bleeding noted. Other meds she is taking, she is on Aricept. Her appetite is variable. PHYSICAL EXAMINATION: VITAL SIGNS: Temperature is 97.5, pulse is 86, blood pressure 105/72, respirations 18, and oxygen saturation is 97%. REVIEW OF SYSTEMS: GENERAL: The patient is more alert, verbal, less confused today, and more cooperative, seen in her room eating with assistance from her family. The patient prefers to eat homemade food. She states she does not like the hospital food and she wants to go home. SKIN: No diaphoresis. HEENT: No headache or dizziness. NECK: Supple. RESPIRATORY: No dyspnea. CARDIOVASCULAR: No chest pain. GASTROINTESTINAL: Appetite is variable. EXTREMITIES: The patient is moving extremities. MUSCULOSKELETAL: Feels weak. NEURO: Alert with periods of forgetfulness. GENITOURINARY: No dysuria. MENTAL STATUS EXAMINATION: Elderly female, who looks stated age and oriented x2. Mood is dysphoric. Affect is restricted. Speech is spontaneous. Thought process, forgetful. Thought content, no psychosis. No suicidal or homicidal ideation. Attention and memory seems to be limited. Insight and judgement limited. Impulse control is fair at this time. IMPRESSION: History of delirium, multifactorial, superimposed dementia, Alzheimer's type, with mood changes. PLAN AND RECOMMENDATIONS: The patient is seen. Meds reviewed. We will continue Aricept 10 mg at bedtime as well as Ativan 1.5 every 12 hours p.r.n. The patient is eating better. The patient will not stay. She does not want to go for subacute rehab. Once medically cleared, she said she will go home. Continue treatment plan as outlined. Jose Pepper MD [facility] # [id number] CYNDY
--- NOTE | 2017-11-04 23:29 | CP.PCM.PN ---
Subjective - Date & Time of Evaluation Date of Evaluation: 11/04/17 Time of Evaluation: 18:30 - Subjective Subjective: Patient seen and examined at bedside. Afebrile. Patient is much more alert and responsive though still drowsy today. . Objective - Vital Signs/Intake and Output Vital Signs (last 24 hours): Temp Pulse Resp BP Pulse Ox 97.4 F L 88 20 99/58 L 99 11/04/17 15:16 11/04/17 16:00 11/04/17 15:16 11/04/17 18:44 11/04/17 15:16 - Medications Medications: Current Medications Acetaminophen (Tylenol 325mg Tab) 650 mg PO Q6 PRN PRN Reason: Pain, moderate (4-7) Last Admin: 10/22/17 01:37 Dose: 650 mg Aspirin (Aspirin Chewable) 81 mg PO DAILY [facility] Last Admin: 11/04/17 10:48 Dose: 81 mg Clopidogrel Bisulfate (Plavix) 75 mg PO DAILY [facility] Last Admin: 11/04/17 10:48 Dose: 75 mg Donepezil HCl (Aricept) 10 mg PO HS [facility] Last Admin: 11/04/17 22:02 Dose: 10 mg Furosemide (Lasix) 20 mg IVP BID [facility] Last Admin: 11/04/17 18:44 Dose: Not Given Guaifenesin (Robitussin) 200 mg PO Q4H PRN PRN Reason: Cough Insulin Human Regular (Novolin R) 0 unit SC ACHS [facility] PRN Reason: Protocol Last Admin: 11/04/17 21:50 Dose: Not Given Ipratropium [place] (Atrovent) 0.5 mg IH RQ6 [facility] Last Admin: 11/04/17 19:15 Dose: Not Given Lorazepam (Ativan) 0.5 mg PO Q12 PRN PRN Reason: Anxiety Last Admin: 11/04/17 22:02 Dose: 0.5 mg Multivitamins (Hexavitamin) 1 tab PO DAILY [facility] Last Admin: 11/04/17 10:48 Dose: 1 tab Rosuvastatin Calcium (Crestor) 10 mg PO HS [facility] Last Admin: 11/04/17 22:02 Dose: 10 mg Sitagliptin Phosphate (Januvia) 25 mg PO DAILY [facility] Last Admin: 11/04/17 10:48 Dose: 25 mg - Labs Labs: 11/04/17 07:46 11/04/17 07:46 PT 12.2 SECONDS (9.7-12.2) 10/21/17 14:23 INR 1.1 10/21/17 14:23 APTT 32 SECONDS (21-34) 10/21/17 14:23 - Constitutional Appears: No Acute Distress - Head Exam Head Exam: ATRAUMATIC, NORMAL INSPECTION, NORMOCEPHALIC - Eye Exam Eye Exam: EOMI, Normal appearance, PERRL Pupil Exam: NORMAL ACCOMODATION, PERRL - Respiratory Exam Respiratory Exam: Decreased Breath Sounds, Rales, Rhonchi - Cardiovascular Exam Cardiovascular Exam: REGULAR RHYTHM, +S1, +S2. absent: Murmur Assessment and Plan (1) Alzheimer disease Status: Acute (2) CHF exacerbation Status: Acute (3) Diabetes mellitus type 2 in nonobese Status: Chronic (4) Hypertension Status: Chronic (5) Pleural effusion Assessment & Plan: Assessment and Plan: 1. Pleural effusion - CXR /3: improving bilateral pleural effusions - Repeat CT as patient is not progressing as quickly as expected 2. CHF - CXR: b/l pleural effusions likely secondary to CHF - lasix - BiPAP - duonebs 3. Neutropenia - WBC 2.4 from 2.1, improving after d/c of remeron - likely due to remeron, d/c'ed Status: Acute
[2017-11-05] MEDS: Ipratropium 0.02% Inhal Soln (0.5 mg/2.5 ml) UD IH SCH ×3 (01:23→13:46)
[2017-11-05] MEDS: (Novolin R) Insulin Human Regular 100 units/ml vial SC SCH ×4 (08:11→21:32)
[2017-11-05] MEDS: Multiple Vitamins Tab PO SCH (09:41)
--- NOTE | 2017-11-05 19:35 | PN ---
DATE: SUBJECTIVE: The patient is seen. The patient still has periods of confusion and states that she wants homemade food. The patient wants to go home. Other than that, she is still taking Ativan p.r.n., but the patient still refusing to eat hospital food. The patient awaiting medical clearance before discharged to home. She has been compliant with medications. The patient is only on Aricept, Ativan p.r.n. VITAL SIGNS: Temperature is 97.5, pulse 81, blood pressure 97/68, respirations 20, oxygen saturation is 95%. REVIEW OF SYSTEMS: GENERAL: The patient is alert and verbal, still confused, not in acute respiratory distress, seen in her room. The patient prefers to eat homemade food. SKIN: No diaphoresis. HEENT: No headache or dizziness. NECK: Supple. RESPIRATORY: No dyspnea. CARDIOVASCULAR: No chest pain. GASTROINTESTINAL: The patient is preferring homemade food. No diarrhea. No abdominal pain. EXTREMITIES: Moving extremities. MUSCULOSKELETAL: Feels weak. NEUROLOGIC: Alert but with periods of confusion. GENITOURINARY: No urinary problems. MENTAL STATUS EXAMINATION: Elderly female, who looks stated age, seen in her room with staff and some family members. Speech is spontaneous. Affect is reactive. Mood is dysphoric. Still confused off and on. Thought process, still confused. Thought content, wants to go home. No overt psychosis. No suicidal or homicidal ideation. Attention and memory seem to be limited. Insight and judgment limited. Impulse control is fair at this time. IMPRESSION: History of delirium, metabolic encephalopathy, multifactorial, superimposed on dementia, Alzheimer's type, with mood changes. PLAN AND RECOMMENDATIONS: The patient is seen. Meds reviewed. The patient may continue eating homemade food, the family is bringing it. May continue present psych medications. The patient does not want to go for subacute rehab. Once the patient is medically cleared, the patient can go home to continue present psych meds as ordered. Jose Pepper MD
--- NOTE | 2017-11-05 23:52 | CP.PCM.PN ---
Subjective - Date & Time of Evaluation Date of Evaluation: 11/05/17 Time of Evaluation: 17:00 - Subjective Subjective: PT IS SEEN AND EXAMINED, AFEBRILE Objective - Vital Signs/Intake and Output Vital Signs (last 24 hours): Temp Pulse Resp BP Pulse Ox 97.3 F L 83 20 118/74 98 11/05/17 15:00 11/05/17 15:00 11/05/17 15:00 11/05/17 18:00 11/05/17 15:00 - Medications Medications: Current Medications Aspirin (Aspirin Chewable) 81 mg PO DAILY [facility] Last Admin: 11/05/17 09:41 Dose: 81 mg Clopidogrel Bisulfate (Plavix) 75 mg PO DAILY [facility] Last Admin: 11/05/17 09:41 Dose: 75 mg Donepezil HCl (Aricept) 10 mg PO HS [facility] Last Admin: 11/05/17 22:04 Dose: 10 mg Furosemide (Lasix) 20 mg IVP BID [facility] Last Admin: 11/05/17 18:00 Dose: 20 mg Guaifenesin (Robitussin) 200 mg PO Q4H PRN PRN Reason: Cough Insulin Human Regular (Novolin R) 0 unit SC ACHS [facility] PRN Reason: Protocol Last Admin: 11/05/17 21:32 Dose: Not Given Lorazepam (Ativan) 0.5 mg PO Q12 PRN PRN Reason: Anxiety Last Admin: 11/04/17 22:02 Dose: 0.5 mg Multivitamins (Hexavitamin) 1 tab PO DAILY [facility] Last Admin: 11/05/17 09:41 Dose: 1 tab Rosuvastatin Calcium (Crestor) 10 mg PO HS [facility] Last Admin: 11/05/17 22:04 Dose: 10 mg Sitagliptin Phosphate (Januvia) 25 mg PO DAILY [facility] Last Admin: 11/05/17 09:41 Dose: 25 mg - Labs Labs: 11/04/17 07:46 11/04/17 07:46 PT 12.2 SECONDS (9.7-12.2) 10/21/17 14:23 INR 1.1 10/21/17 14:23 APTT 32 SECONDS (21-34) 10/21/17 14:23 Assessment and Plan (1) Alzheimer disease Status: Acute (2) CHF exacerbation Status: Acute (3) Diabetes mellitus type 2 in nonobese Status: Chronic (4) Hypertension Status: Chronic (5) Pleural effusion Status: Acute
[2017-11-06] MEDS: (Novolin R) Insulin Human Regular 100 units/ml vial SC SCH ×4 (08:10→22:54)
--- NOTE | 2017-11-06 10:59 | CP.PCM.PN ---
Subjective - Date & Time of Evaluation Date of Evaluation: 11/06/17 Time of Evaluation: 08:00 - Subjective Subjective: patient seen and examined In no distress but desaturates on minimal exertion Being treated for CHF Patient with poor appetit Cardiology follow-up Objective - Vital Signs/Intake and Output Vital Signs (last 24 hours): Temp Pulse Resp BP Pulse Ox 97.4 F L 76 20 100/60 96 11/06/17 07:00 11/06/17 07:00 11/06/17 07:00 11/06/17 07:00 11/06/17 07:00 Intake and Output: 11/06/17 11/06/17 06:59 18:59 Intake Total 50 Balance 50 - Medications Medications: Current Medications Donepezil HCl (Aricept) 10 mg PO HS [facility] Last Admin: 11/05/17 22:04 Dose: 10 mg Furosemide (Lasix) 20 mg IVP BID [facility] Last Admin: 11/05/17 18:00 Dose: 20 mg Guaifenesin (Robitussin) 200 mg PO Q4H PRN PRN Reason: Cough Insulin Human Regular (Novolin R) 0 unit SC ACHS [facility] PRN Reason: Protocol Last Admin: 11/06/17 08:10 Dose: 1 unit Lorazepam (Ativan) 0.5 mg PO Q12 PRN PRN Reason: Anxiety Last Admin: 11/04/17 22:02 Dose: 0.5 mg Multivitamins (Hexavitamin) 1 tab PO DAILY [facility] Last Admin: 11/05/17 09:41 Dose: 1 tab Rosuvastatin Calcium (Crestor) 10 mg PO HS [facility] Last Admin: 11/05/17 22:04 Dose: 10 mg - Labs Labs: 11/04/17 07:46 11/04/17 07:46 PT 12.2 SECONDS (9.7-12.2) 10/21/17 14:23 INR 1.1 10/21/17 14:23 APTT 32 SECONDS (21-34) 10/21/17 14:23 Assessment and Plan (1) Pleural effusion Status: Acute (2) CHF (congestive heart failure) Status: Acute
[2017-11-06] MEDS: Multiple Vitamins Tab PO SCH (11:39)
--- NOTE | 2017-11-06 20:06 | PN ---
DATE: SUBJECTIVE: The patient is seen. The patient is still refusing to eat hospital food. She is waiting for her significant other to bring food from home. The patient still easily gets short of breath. Still has periods of confusion. The patient is awaiting repeat urinalysis result. According to the nurse, the prior records of the urine was not collected. We will try to request that again for urinalysis. VITAL SIGNS: Temperature is 97.4, pulse 79, blood pressure 100/60, respirations 20, oxygen saturation is 96%. REVIEW OF SYSTEMS: GENERAL: The patient is alert and verbal, still with periods of confusion, seen in her room and states she does not like hospital food. SKIN: No diaphoresis. HEENT: No headache or dizziness. NECK: Supple. RESPIRATORY: A bit short of breath on slight exertion, not coughing, not in acute respiratory distress. CARDIOVASCULAR: No chest pain. GASTROINTESTINAL: Has poor appetite. The patient eats homemade food. EXTREMITIES: The patient is moving extremities. MUSCULOSKELETAL: Feels weak. NEUROLOGIC: Alert with periods of confusion. GENITOURINARY: No dysuria. MENTAL STATUS EXAMINATION: Elderly female, who looks stated age, casually dressed, oriented x2. Mood is dysphoric. Affect is restricted. Speech is spontaneous. Thought process, confused off and on. Thought content, The patient states she wants to go home but she is refusing to eat the hospital food. According to the nurse, she tried to feed her but the patient is eating lesser than 25%. The patient states she prefers homemade food. No overt psychosis. No suicidal or homicidal ideation. No hallucination. Attention and memory still limited. Insight and judgment limited. Impulse control is fair at this time. IMPRESSION: History of delirium, metabolic encephalopathy superimposed with dementia with mood changes, Alzheimer's type. PLAN AND RECOMMENDATIONS: The patient is seen. Meds reviewed. Continue present management. Continue treatment plan. The patient awaiting medical clearance. The patient does want to go for subacute rehab. Psychwise, there is no need to change her psych meds for now. She is manageable. Once medically cleared, she can go home. While she is in the hospital, we will check her repeat urinalysis. Jose Pepper MD [facility] # [id number]
--- NOTE | 2017-11-06 23:17 | CP.PCM.PN ---
Subjective - Date & Time of Evaluation Date of Evaluation: 11/05/17 Time of Evaluation: 09:20 - Subjective Subjective: Patient seen and evaluated Denies chest pain and dyspnea Objective - Vital Signs/Intake and Output Vital Signs (last 24 hours): Temp Pulse Resp BP Pulse Ox 97.2 F L 96 H 20 109/72 99 11/06/17 15:32 11/06/17 15:32 11/06/17 15:32 11/06/17 18:03 11/06/17 15:32 Intake and Output: 11/06/17 11/07/17 18:59 06:59 Intake Total 100 Balance 100 - Medications Medications: Current Medications Aspirin (Aspirin Chewable) 81 mg PO DAILY [facility] Last Admin: 11/06/17 11:39 Dose: 81 mg Clopidogrel Bisulfate (Plavix) 75 mg PO DAILY [facility] Last Admin: 11/06/17 11:39 Dose: 75 mg Donepezil HCl (Aricept) 10 mg PO HS [facility] Last Admin: 11/06/17 22:14 Dose: 10 mg Furosemide (Lasix) 20 mg IVP BID [facility] Last Admin: 11/06/17 18:03 Dose: 20 mg Guaifenesin (Robitussin) 200 mg PO Q4H PRN PRN Reason: Cough Insulin Human Regular (Novolin R) 0 unit SC ACHS [facility] PRN Reason: Protocol Last Admin: 11/06/17 22:54 Dose: Not Given Lorazepam (Ativan) 0.5 mg PO Q12 PRN PRN Reason: Anxiety Last Admin: 11/04/17 22:02 Dose: 0.5 mg Multivitamins (Hexavitamin) 1 tab PO DAILY [facility] Last Admin: 11/06/17 11:39 Dose: 1 tab Rosuvastatin Calcium (Crestor) 10 mg PO HS [facility] Last Admin: 11/06/17 22:14 Dose: 10 mg Sitagliptin Phosphate (Januvia) 25 mg PO DAILY [facility] Last Admin: 11/06/17 11:39 Dose: 25 mg - Labs Labs: 11/04/17 07:46 11/04/17 07:46 PT 12.2 SECONDS (9.7-12.2) 10/21/17 14:23 INR 1.1 10/21/17 14:23 APTT 32 SECONDS (21-34) 10/21/17 14:23
--- NOTE | 2017-11-06 23:18 | CP.PCM.PN ---
Subjective - Date & Time of Evaluation Date of Evaluation: 11/06/17 Time of Evaluation: 09:45 - Subjective Subjective: Patient seen and evaluated Denies chest pain and dyspnea Objective - Vital Signs/Intake and Output Vital Signs (last 24 hours): Temp Pulse Resp BP Pulse Ox 97.2 F L 96 H 20 109/72 99 11/06/17 15:32 11/06/17 15:32 11/06/17 15:32 11/06/17 18:03 11/06/17 15:32 Intake and Output: 11/06/17 11/07/17 18:59 06:59 Intake Total 100 Balance 100 - Medications Medications: Current Medications Aspirin (Aspirin Chewable) 81 mg PO DAILY [facility] Last Admin: 11/06/17 11:39 Dose: 81 mg Clopidogrel Bisulfate (Plavix) 75 mg PO DAILY [facility] Last Admin: 11/06/17 11:39 Dose: 75 mg Donepezil HCl (Aricept) 10 mg PO HS [facility] Last Admin: 11/06/17 22:14 Dose: 10 mg Furosemide (Lasix) 20 mg IVP BID [facility] Last Admin: 11/06/17 18:03 Dose: 20 mg Guaifenesin (Robitussin) 200 mg PO Q4H PRN PRN Reason: Cough Insulin Human Regular (Novolin R) 0 unit SC ACHS [facility] PRN Reason: Protocol Last Admin: 11/06/17 22:54 Dose: Not Given Lorazepam (Ativan) 0.5 mg PO Q12 PRN PRN Reason: Anxiety Last Admin: 11/04/17 22:02 Dose: 0.5 mg Multivitamins (Hexavitamin) 1 tab PO DAILY [facility] Last Admin: 11/06/17 11:39 Dose: 1 tab Rosuvastatin Calcium (Crestor) 10 mg PO HS [facility] Last Admin: 11/06/17 22:14 Dose: 10 mg Sitagliptin Phosphate (Januvia) 25 mg PO DAILY [facility] Last Admin: 11/06/17 11:39 Dose: 25 mg - Labs Labs: 11/04/17 07:46 11/04/17 07:46 PT 12.2 SECONDS (9.7-12.2) 10/21/17 14:23 INR 1.1 10/21/17 14:23 APTT 32 SECONDS (21-34) 10/21/17 14:23
--- NOTE | 2017-11-06 23:37 | CP.PCM.PN ---
Subjective - Date & Time of Evaluation Date of Evaluation: 11/06/17 Time of Evaluation: 19:35 - Subjective Subjective: patient seen and examined Lying comfortably in no distress No shortness of breath Afebrile Objective - Vital Signs/Intake and Output Vital Signs (last 24 hours): Temp Pulse Resp BP Pulse Ox 97.2 F L 96 H 20 109/72 99 11/06/17 15:32 11/06/17 15:32 11/06/17 15:32 11/06/17 18:03 11/06/17 15:32 Intake and Output: 11/06/17 11/07/17 18:59 06:59 Intake Total 100 Balance 100 - Medications Medications: Current Medications Aspirin (Aspirin Chewable) 81 mg PO DAILY [facility] Last Admin: 11/06/17 11:39 Dose: 81 mg Clopidogrel Bisulfate (Plavix) 75 mg PO DAILY [facility] Last Admin: 11/06/17 11:39 Dose: 75 mg Donepezil HCl (Aricept) 10 mg PO HS [facility] Last Admin: 11/06/17 22:14 Dose: 10 mg Furosemide (Lasix) 20 mg IVP BID [facility] Last Admin: 11/06/17 18:03 Dose: 20 mg Guaifenesin (Robitussin) 200 mg PO Q4H PRN PRN Reason: Cough Insulin Human Regular (Novolin R) 0 unit SC ACHS [facility] PRN Reason: Protocol Last Admin: 11/06/17 22:54 Dose: Not Given Lorazepam (Ativan) 0.5 mg PO Q12 PRN PRN Reason: Anxiety Last Admin: 11/04/17 22:02 Dose: 0.5 mg Multivitamins (Hexavitamin) 1 tab PO DAILY [facility] Last Admin: 11/06/17 11:39 Dose: 1 tab Rosuvastatin Calcium (Crestor) 10 mg PO HS [facility] Last Admin: 11/06/17 22:14 Dose: 10 mg Sitagliptin Phosphate (Januvia) 25 mg PO DAILY [facility] Last Admin: 11/06/17 11:39 Dose: 25 mg - Labs Labs: 11/04/17 07:46 11/04/17 07:46 PT 12.2 SECONDS (9.7-12.2) 10/21/17 14:23 INR 1.1 10/21/17 14:23 APTT 32 SECONDS (21-34) 10/21/17 14:23 Assessment and Plan (1) Alzheimer disease Status: Acute (2) CHF exacerbation Status: Acute (3) Diabetes mellitus type 2 in nonobese Status: Chronic (4) Hypertension Status: Chronic (5) Pleural effusion Status: Acute
[2017-11-07] MEDS: (Novolin R) Insulin Human Regular 100 units/ml vial SC SCH ×3 (08:24→17:18)
[2017-11-07] MEDS: Multiple Vitamins Tab PO SCH (10:42)
[2017-11-07 11:32] LABS: BASO % 0.6 % (0.0-2.0); EOS % 0.1 % (0.0-4.0); HEMOGLOBIN 11.5 g/dL (11.0-16.0); LYMPH # 1.7 K/uL (1.0-4.3); LYMPH % 19.9 % (20.0-40.0); MEAN CELL VOLUME 84.3 fL (81.0-99.0); MEAN CORPUSCULAR HEMOGLOBIN 26.8 pg (27.0-31.0); MEAN CORPUSCULAR HGB CONC 31.8 g/dL (33.0-37.0); MEAN PLATELET VOLUME 9.9 fL (7.2-11.7); MONO # 1.1 K/uL (0.0-0.8); MONO % 13.1 % (0.0-10.0); NEUT # 5.6 K/uL (1.8-7.0); NEUT % 66.3 % (50.0-75.0); NRBC % 0.2 % (0.0-2.0); RBC 4.28 Mil/uL (3.80-5.20); RED CELL DISTRIBUTION WIDTH 15.5 % (11.5-14.5)
[2017-11-07 11:33] LABS: WHITE BLOOD COUNT 8.4 K/uL (4.8-10.8)
[2017-11-07 12:03] LABS: BLOOD UREA NITROGEN 52 mg/dL (7-17); CALCIUM 9.1 mg/dl (8.6-10.4); GFR AFRICAN-AMERICAN > 60; GFR NON-AFRICAN AMERICAN > 60
[2017-11-07 15:42] VITALS: BP 107/70; RESP 20; TEMP 97.8; O2SAT 97
[2017-11-07 16:20] VITALS: PULSE 80
--- NOTE | 2017-11-07 16:35 | CP.PCM.PN ---
Subjective - Date & Time of Evaluation Date of Evaluation: 11/07/17 Time of Evaluation: 11:00 - Subjective Subjective: Patient seen today, awake, alert, forgetful ,denies any chest pain, dizziness. , cough or congestion ,c/o sob in exertion de saturates without o2 a febrile Objective - Vital Signs/Intake and Output Vital Signs (last 24 hours): Temp Pulse Resp BP Pulse Ox 97.8 F 80 20 107/70 97 11/07/17 15:00 11/07/17 16:10 11/07/17 15:00 11/07/17 15:00 11/07/17 15:00 Intake and Output: 11/07/17 11/07/17 06:59 18:59 Intake Total 200 Balance 200 - Medications Medications: Current Medications Aspirin (Aspirin Chewable) 81 mg PO DAILY [facility] Last Admin: 11/07/17 10:42 Dose: 81 mg Clopidogrel Bisulfate (Plavix) 75 mg PO DAILY [facility] Last Admin: 11/07/17 10:42 Dose: 75 mg Donepezil HCl (Aricept) 10 mg PO HS [facility] Last Admin: 11/06/17 22:14 Dose: 10 mg Furosemide (Lasix) 20 mg IVP BID [facility] Last Admin: 11/07/17 10:42 Dose: 20 mg Guaifenesin (Robitussin) 200 mg PO Q4H PRN PRN Reason: Cough Insulin Human Regular (Novolin R) 0 unit SC ACHS [facility] PRN Reason: Protocol Last Admin: 11/07/17 12:23 Dose: 2 unit Lorazepam (Ativan) 0.5 mg PO Q12 PRN PRN Reason: Anxiety Last Admin: 11/04/17 22:02 Dose: 0.5 mg Multivitamins (Hexavitamin) 1 tab PO DAILY [facility] Last Admin: 11/07/17 10:42 Dose: 1 tab Rosuvastatin Calcium (Crestor) 10 mg PO HS [facility] Last Admin: 11/06/17 22:14 Dose: 10 mg Sitagliptin Phosphate (Januvia) 25 mg PO DAILY [facility] Last Admin: 11/07/17 10:42 Dose: 25 mg - Labs Labs: 11/07/17 11:24 11/07/17 13:50 PT 12.2 SECONDS (9.7-12.2) 10/21/17 14:23 INR 1.1 10/21/17 14:23 APTT 32 SECONDS (21-34) 10/21/17 14:23 - Constitutional Appears: No Acute Distress, Chronically Ill - Respiratory Exam Respiratory Exam: Decreased Breath Sounds, NORMAL BREATHING PATTERN - Cardiovascular Exam Cardiovascular Exam: REGULAR RHYTHM, +S1, +S2 - Neurological Exam Neurological Exam: Alert, Awake Assessment and Plan - Assessment and Plan (Free Text) Plan: A/P 77 year old female with PMHx of CHF (10% EF), HTN, s/p pacemaker insertion admitted for weakness , hypotension, SOB exc. CHF and pneumonia and persistent pleural effusion abg-shows hypoxia and home oxygen arranged and available seen by Dr. Nolan today, stable from pul. standpoint for discharge home today D/W Dr. Bonilla, stable for discharge [facility] and f/u with Dr. Bonilla office in 1 week
--- NOTE | 2017-11-07 16:36 | PCM.HF ---
Heart Failure Core Measure - Heart Failure Ejection Fraction: Less Than 40 % JEANNE Inhibitor Prescribed: No Contraindication/Reason for not providing: bp in 90,s Beta-Janee Prescribed: None Contraindication/Reason for not providing: bp 90,s Angiotensin II Receptor Janee Prescribed: No Contraindication/Reason for not providing: bp 90,s AnticoagulationTherapy for Atrial Fibrillation/Atrialflutter: No Contraindication/Reason for not providing: no hx of a fib Aldosterone Antagonist Prescribed: No Contraindication/Reason for not providing: risk foir hyperkalemoia or lasix Hydralazine Nitrate Prescribed: No Contraindication/Reason for not providing: gracie 90,s Implantable Cardioverter Defibrillator Therapy: Yes Cardiac Resynchronization Therapy Prescribed: No Contraindication/Reason for not providing: NSR / pt has AICD - Follow up Will be discharged to: Home Follow Up Date (must be within 7 days from discharge): 11/14/17 Follow Up Time: 09:00
--- NOTE | 2017-11-07 17:10 | PN ---
DATE: SUBJECTIVE: The patient is seen. The patient seems to be flores and irritable today. She states she wants to rest and she wants to be left alone. She is still not eating the hospital food, but prefers homely food. The patient easily gets tired while awaiting medical clearance to go home. The patient wants to go home today. PHYSICAL EXAMINATION VITAL SIGNS: Temperature is 97.4, pulse is 87, blood pressure is 117/59, respirations 18, and oxygen saturation is 94%. REVIEW OF SYSTEMS: GENERAL: The patient is alert, verbal,forgetful , seen in her room resting. SKIN: No diaphoresis. HEENT: No headache. No dizziness. NECK: Supple. RESPIRATORY: No dyspnea. CARDIOVASCULAR: No chest pain. GASTROINTESTINAL: The patient prefers homemade food. No diarrhea. No nausea. No vomiting. EXTREMITIES: Gait is unsteady. MUSCULOSKELETAL: Feels weak. NEURO: Alert with periods of forgetfulness. GENITOURINARY: No dysuria. MENTAL STATUS EXAMINATION: Elderly female, who looks stated age. The patient is irritable, anxious, somatic. Affect is reactive. Speech is spontaneous. Thought process, forgetful. Thought content, the patient wants to go home. No psychosis. No suicidal or homicidal ideation. She says she does not want to eat hospital food. Attention and memory seems to be limited. Insight and judgement limited. Impulse control is fair at this time. IMPRESSION: History of delirium, metabolic encephalopathy, superimposed and Alzheimer's dementia with mood changes. PLAN AND RECOMMENDATIONS: The patient is seen. Meds reviewed. The patient is awaiting medical clearance. The patient to continue her present psych meds. On review of her labs, her blood sugar is 203. Psych-ruiz, once the patient is medically cleared, the patient can go home, although today the patient's potassium was noted to be elevated as well as creatinine. The patient is still awaiting medical clearance. A repeat of her labs before discharge. Jose Pepper MD
--- NOTE | 2017-11-07 18:01 | CP.PCM.PN ---
Subjective - Date & Time of Evaluation Date of Evaluation: 11/07/17 Time of Evaluation: 10:00 - Subjective Subjective: Patient seen and examined at bedside. Afebrile. Patient is much more alert and responsive though still drowsy today. Crackles are again heard on examination. Patient is awaiting orders for home O2 before discharge. Assessment and Plan: 1. Pleural effusion - CXR /: improving bilateral pleural effusions 2. CHF - CXR: b/l pleural effusions likely secondary to CHF - lasix - duonebs 3. Neutropenia, resolving - WBC 2.4 from 2.1, improving after d/c of remeron - likely due to remeron, d/c'ed Cleared for discharge from pulmonary standpoint. Objective - Vital Signs/Intake and Output Vital Signs (last 24 hours): Temp Pulse Resp BP Pulse Ox 97.8 F 80 20 107/70 97 11/07/17 15:00 11/07/17 16:10 11/07/17 15:00 11/07/17 15:00 11/07/17 15:00 Intake and Output: 11/07/17 11/07/17 06:59 18:59 Intake Total 200 Balance 200 - Medications Medications: Current Medications Aspirin (Aspirin Chewable) 81 mg PO DAILY [facility] Last Admin: 11/07/17 10:42 Dose: 81 mg Clopidogrel Bisulfate (Plavix) 75 mg PO DAILY [facility] Last Admin: 11/07/17 10:42 Dose: 75 mg Donepezil HCl (Aricept) 10 mg PO HS [facility] Last Admin: 11/06/17 22:14 Dose: 10 mg Furosemide (Lasix) 20 mg IVP BID [facility] Last Admin: 11/07/17 10:42 Dose: 20 mg Guaifenesin (Robitussin) 200 mg PO Q4H PRN PRN Reason: Cough Insulin Human Regular (Novolin R) 0 unit SC ACHS [facility] PRN Reason: Protocol Last Admin: 11/07/17 17:18 Dose: Not Given Lorazepam (Ativan) 0.5 mg PO Q12 PRN PRN Reason: Anxiety Last Admin: 11/04/17 22:02 Dose: 0.5 mg Multivitamins (Hexavitamin) 1 tab PO DAILY [facility] Last Admin: 11/07/17 10:42 Dose: 1 tab Rosuvastatin Calcium (Crestor) 10 mg PO HS [facility] Last Admin: 11/06/17 22:14 Dose: 10 mg Sitagliptin Phosphate (Januvia) 25 mg PO DAILY [facility] Last Admin: 11/07/17 10:42 Dose: 25 mg - Labs Labs: 11/07/17 11:24 11/07/17 13:50 PT 12.2 SECONDS (9.7-12.2) 10/21/17 14:23 INR 1.1 10/21/17 14:23 APTT 32 SECONDS (21-34) 10/21/17 14:23 Assessment and Plan (1) Pleural effusion Status: Acute (2) CHF (congestive heart failure) Status: Acute
--- NOTE | 2017-11-07 21:27 | CP.PCM.DIS ---
Provider - Provider Date of Admission: 10/21/17 19:02 Attending physician: Celso Bonilla MD Time Spent in preparation of Discharge (in minutes): 26 Diagnosis - Discharge Diagnosis (1) Alzheimer disease Status: Acute (2) CHF exacerbation Status: Acute (3) Diabetes mellitus type 2 in nonobese Status: Chronic (4) Hypertension Status: Chronic (5) Pleural effusion Status: Acute Hospital Course - Lab Results Lab Results: Micro Results 10/21/17 16:30 Blood Blood Culture - Final NO GROWTH AFTER 5 DAYS 10/21/17 16:30 Blood Gram Stain - Final TEST NOT PERFORMED 10/21/17 16:00 Blood Blood Culture - Final NO GROWTH AFTER 5 DAYS 10/21/17 16:00 Blood Gram Stain - Final TEST NOT PERFORMED Most Recent Lab Values WBC 8.4 K/uL (4.8-10.8) D 11/07/17 11:24 RBC 4.28 Mil/uL (3.80-5.20) 11/07/17 11:24 Hgb 11.5 g/dL (11.0-16.0) 11/07/17 11:24 Hct 36.1 % (34.0-47.0) 11/07/17 11:24 MCV 84.3 fL (81.0-99.0) 11/07/17 11:24 MCH 26.8 pg (27.0-31.0) L 11/07/17 11:24 MCHC 31.8 g/dL (33.0-37.0) L 11/07/17 11:24 RDW 15.5 % (11.5-14.5) H 11/07/17 11:24 Plt Count 600 K/uL (130-400) H D 11/07/17 11:24 MPV 9.9 fL (7.2-11.7) 11/07/17 11:24 Neut % (Auto) 66.3 % (50.0-75.0) 11/07/17 11:24 Lymph % (Auto) 19.9 % (20.0-40.0) L 11/07/17 11:24 [place] % (Auto) 13.1 % (0.0-10.0) H 11/07/17 11:24 Eos % (Auto) 0.1 % (0.0-4.0) 11/07/17 11:24 Baso % (Auto) 0.6 % (0.0-2.0) 11/07/17 11:24 Neut # (Auto) 5.6 K/uL (1.8-7.0) 11/07/17 11:24 Lymph # (Auto) 1.7 K/uL (1.0-4.3) 11/07/17 11:24 [place] # (Auto) 1.1 K/uL (0.0-0.8) H 11/07/17 11:24 Eos # (Auto) 0.0 K/uL (0.0-0.7) 11/07/17 11:24 Baso # (Auto) 0.0 K/uL (0.0-0.2) 11/07/17 11:24 Neutrophils % (Manual) 23 % (50-75) L 11/04/17 07:46 Band Neutrophils % 4 % (0-2) H 11/04/17 07:46 Lymphocytes % (Manual) 41 % (20-40) H 11/04/17 07:46 Reactive Lymphs % 2 % (0-0) H 11/01/17 16:41 Monocytes % (Manual) 32 % (0-10) H 11/04/17 07:46 Differential Comment 11/01/17 06:48 Platelet Estimate Normal (NORMAL) 11/04/17 07:46 Large Platelets Present 11/04/17 07:46 Polychromasia Slight 11/04/17 07:46 Hypochromasia (manual) Moderate 11/04/17 07:46 Anisocytosis (manual) Slight 11/04/17 07:46 Microcytosis (manual) Slight 11/01/17 16:41 Smear Path Review 11/01/17 06:48 PT 12.2 SECONDS (9.7-12.2) 10/21/17 14:23 INR 1.1 10/21/17 14:23 APTT 32 SECONDS (21-34) 10/21/17 14:23 Puncture Site Rba 11/02/17 10:38 pCO2 49 mm/Hg (35-45) H 11/02/17 10:38 pO2 53 mm/Hg (80-100) L 11/02/17 10:38 HCO3 32.4 mmol/L (21-28) H 11/02/17 10:38 ABG pH 7.46 (7.35-7.45) H 11/02/17 10:38 ABG Total CO2 36.3 mmol/L (22-28) H 11/02/17 10:38 ABG O2 Saturation 92.7 % (95-98) L 11/02/17 10:38 ABG Base Excess 9.7 mmol/L (-2.0-3.0) H 11/02/17 10:38 ABG Hemoglobin 10.0 g/dL (11.7-17.4) L 11/02/17 10:38 ABG Carboxyhemoglobin 2.0 % (0.5-1.5) H 11/02/17 10:38 POC ABG HHb (Measured) 7.1 % (0.0-5.0) H 11/02/17 10:38 ABG Methemoglobin 1.3 % (0.0-3.0) 11/02/17 10:38 Maksim Test Na 11/02/17 10:38 VBG pH 7.39 (7.32-7.43) 10/21/17 15:00 VBG pCO2 56 mmHg (40-60) 10/21/17 15:00 VBG HCO3 29.5 mmol/L 10/21/17 15:00 VBG Total CO2 35.6 mmol/L (22-28) H 10/21/17 15:00 VBG O2 Sat (Calc) 67.0 % (40-65) H 10/21/17 15:00 VBG Base Excess 7.1 mmol/L (0.0-2.0) H 10/21/17 15:00 VBG Potassium 5.8 mmol/L (3.6-5.2) H 10/21/17 15:00 A-a O2 Difference 35.0 mm/Hg 11/02/17 10:38 Respiratory Index 0.7 11/02/17 10:38 Hgb O2 Saturation 89.6 % (95.0-98.0) L 11/02/17 10:38 Sodium 135.0 mmol/l (132-148) 10/21/17 15:00 Chloride 102.0 mmol/L (98-107) 10/21/17 15:00 Glucose 189 mg/dl (65-105) H 10/21/17 15:00 Lactate 1.9 mmol/L (0.7-2.1) 10/21/17 15:00 Liter Flow 2.5 10/27/17 11:47 FiO2 21.0 % 11/02/17 10:38 Sodium 142 mmol/L (132-148) 11/07/17 10:30 Potassium 5.1 mmol/L (3.6-5.2) 11/07/17 13:50 Chloride 96 mmol/L (98-107) L 11/07/17 10:30 Carbon Dioxide 34 mmol/L (22-30) H 11/07/17 10:30 Anion Gap 18 (10-20) 11/07/17 10:30 BUN 52 mg/dL (7-17) H 11/07/17 10:30 Creatinine 0.9 mg/dL (0.7-1.2) 11/07/17 10:30 Est GFR ( Amer) > 60 11/07/17 10:30 Est GFR (Non-Af Amer) > 60 11/07/17 10:30 POC Glucose (mg/dL) 172 mg/dL (65-110) H 11/07/17 17:11 Random Glucose 206 mg/dL (65-105) H 11/07/17 10:30 Calcium 9.1 mg/dl (8.6-10.4) 11/07/17 10:30 Magnesium 2.2 mg/dL (1.6-2.3) 11/01/17 06:48 Total Bilirubin 0.6 mg/dL (0.2-1.3) 10/21/17 15:12 AST 57 U/L (14-36) H 10/21/17 15:12 ALT 62 U/L (9-52) H D 10/21/17 15:12 Alkaline Phosphatase 126 U/L (38-126) D 10/21/17 15:12 Troponin I 0.0350 ng/mL (0.00-0.120) 10/21/17 15:12 NT-Pro-B Natriuret Pep 57298 pg/mL (0-900) H 10/25/17 06:37 Total Protein 6.3 g/dL (6.3-8.3) 10/21/17 15:12 Albumin 3.1 g/dL (3.5-5.0) L 10/21/17 15:12 Globulin 3.3 gm/dL (2.2-3.9) 10/21/17 15:12 Albumin/Globulin Ratio 0.9 (1.0-2.1) L 10/21/17 15:12 Lipase Cancelled 10/21/17 14:23 Venous Blood Potassium 5.8 mmol/L (3.6-5.2) H 10/21/17 15:00 Urine Color Yellow (YELLOW) 10/21/17 20:23 Urine Clarity Hazy (Clear) 10/21/17 20:23 Urine pH 5.0 (5.0-8.0) 10/21/17 20:23 Ur Specific [place] 1.027 (1.003-1.030) 10/21/17 20:23 Urine Protein Negative mg/dL (NEGATIVE) 10/21/17 20:23 Urine Glucose (UA) Normal mg/dL (Normal) 10/21/17 20:23 Urine Ketones Negative mg/dL (NEGATIVE) 10/21/17 20:23 Urine Blood 1+ (NEGATIVE) H 10/21/17 20:23 Urine Nitrate Negative (NEGATIVE) 10/21/17 20:23 Urine Bilirubin Negative (NEGATIVE) 10/21/17 20:23 Urine Urobilinogen Normal mg/dL (0.2-1.0) 10/21/17 20:23 Ur Leukocyte Esterase 2+ Cristal/uL (Negative) H 10/21/17 20:23 Urine WBC (Auto) 19 /hpf (0-5) H 10/21/17 20:23 Urine RBC (Auto) 8 /hpf (0-3) H 10/21/17 20:23 Ur Squamous Epith Cells 1 /hpf (0-5) 10/21/17 20:23 Ur Transition Epith Cell < 1 /hpf (0-3) 10/21/17 20:23 Urine Bacteria Occ (<OCC) H 10/21/17 20:23 Hyaline Casts 3-5 /lpf (0-2) H 10/21/17 20:23 - Hospital Course Hospital Course: A/P 77 year old female with PMHx of CHF (10% EF), HTN, s/p pacemaker insertion admitted for weakness , hypotension, SOB exc. CHF and pneumonia and persistent pleural effusion abg-shows hypoxia and home oxygen arranged and available seen by Dr. Nolan today, stable from pul. standpoint for discharge home today pt is stable for discharge home today and f/u with me in office in 1 week Discharge Exam - Head Exam Head Exam: ATRAUMATIC, NORMAL INSPECTION, NORMOCEPHALIC Discharge Plan - Discharge Medications Prescriptions: Diaper,Brief,Adult, Disposable [Adult Brief] 1 each MC QID 30 Days each Donepezil [Aricept] 10 mg PO HS #30 tab Aspirin [Aspirin Chewable] 81 mg PO DAILY #30 chew LORazepam [Ativan] 0.5 mg PO Q12 PRN #30 tab PRN Reason: Anxiety Rosuvastatin Calcium [Crestor] 10 mg PO HS #30 tab Multivitamins [Hexavitamin] 1 tab PO DAILY #30 tab SITagliptin [Januvia] 25 mg PO DAILY #30 tab Furosemide [Lasix] 40 mg PO DAILY #30 tablet Clopidogrel [Plavix] 75 mg PO DAILY #30 tab - Follow Up Plan Condition: FAIR Disposition: HOME/ ROUTINE Instructions: Sitagliptin, Heart Healthy Diet, Quitting Smoking for Older Adults, Smoking: Not Just Harmful to Your Lungs and Heart, Heart Failure, Adult (DC), Heart Attack (DC), Pleural Effusion (DC), Aspirin, Clopidogrel, Donepezil , Furosemide, Lorazepam, Heart Failure (DC) Additional Instructions: Please follow up with Dr. Bonilla office in 1 week Please follow up with Dr. Robledo office in 2 week Continue medication as per med. rec Please use oxygen as needed to keep spo2 >94 [facility], HOME PT / NURSING FOR MANAGEMENT FOR CHF please meat pickler medication from your pharmacy, e prescribed Referrals: Kalen Robledo MD [Staff Provider] - Celso Bonilla MD [Staff Provider] -
== END 2017-11-07 19:57 | DRG 56 ==
LOC: C.ER 13:44 → C.9E 19:02 → C.6T 21:32
PROVIDERS: ADMIT Internal Medicine; ATTEND Internal Medicine
DX: G30.9 Alzheimer's disease, unspecified (principal); I50.23 Acute on chronic systolic (congestive) heart failure; F02.81 Dementia in other diseases classified elsewhere, unspecified severity, with behavioral disturbance; F05 Delirium due to known physiological condition; I42.0 Dilated cardiomyopathy; N39.0 Urinary tract infection, site not specified; E11.9 Type 2 diabetes mellitus without complications; D70.9 Neutropenia, unspecified; I11.0 Hypertensive heart disease with heart failure; I25.10 Atherosclerotic heart disease of native coronary artery without angina pectoris; I25.5 Ischemic cardiomyopathy; I27.20 Pulmonary hypertension, unspecified; Z95.0 Presence of cardiac pacemaker; Z95.810 Presence of automatic (implantable) cardiac defibrillator; Z90.12 Acquired absence of left breast and nipple; Z87.891 Personal history of nicotine dependence; R09.02 Hypoxemia

== ENCOUNTER 2017-11-14 07:42 | Emergency (ER) | payer MEDICARE, OTHER ==
[2017-11-14 07:56] VITALS: BMI 18.8
[2017-11-14 08:26] LABS: BASO # 0.1 K/uL (0.0-0.2); BASO % 0.7 % (0.0-2.0); EOS # 0.1 K/uL (0.0-0.7); EOS % 0.9 % (0.0-4.0); HEMOGLOBIN 11.6 g/dL (11.0-16.0); LYMPH # 1.4 K/uL (1.0-4.3); LYMPH % 13.7 % (20.0-40.0); MEAN CELL VOLUME 82.9 fL (81.0-99.0); MEAN CORPUSCULAR HEMOGLOBIN 26.4 pg (27.0-31.0); MEAN CORPUSCULAR HGB CONC 31.9 g/dL (33.0-37.0); MEAN PLATELET VOLUME 8.5 fL (7.2-11.7); MONO # 0.5 K/uL (0.0-0.8); MONO % 5.2 % (0.0-10.0); NEUT # 8.3 K/uL (1.8-7.0); NEUT % 79.5 % (50.0-75.0); RBC 4.38 Mil/uL (3.80-5.20); RED CELL DISTRIBUTION WIDTH 15.7 % (11.5-14.5); WHITE BLOOD COUNT 10.5 K/uL (4.8-10.8)
[2017-11-14 08:29] LABS: INR 1.1; PROTHROMBIN TIME 12.5 SECONDS (9.7-12.2)
[2017-11-14 09:09] LABS: ALB/GLOB RATIO 0.9 (1.0-2.1); ALBUMIN 3.3 g/dL (3.5-5.0); ALT/SGPT 34 U/L (9-52); AST/SGOT 49 U/L (14-36); BLOOD UREA NITROGEN 20 mg/dL (7-17); CALCIUM 8.7 mg/dl (8.6-10.4); GFR AFRICAN-AMERICAN > 60; GFR NON-AFRICAN AMERICAN > 60
[2017-11-14 10:02] VITALS: BP 91/76; PULSE 76; RESP 22; TEMP 97.6; O2SAT 100
[2017-11-14 10:10] LABS: VENOUS BLOOD GAS BASE EXCESS 16.6 mmol/L (0.0-2.0); VENOUS BLOOD GAS PCO2 71 mmHg (40-60); VENOUS BLOOD GAS PO2 20 mm/Hg (30-55); VENOUS BLOOD PH 7.41 (7.32-7.43)
--- NOTE | 2017-11-14 12:27 | C.PDOC ---
History Of Present Illness 77 year old female presents to the ED after she had a nose bleed at 0530 today. On arrival to ED, patient's bleeding has stopped. Patient denies headache and has no other complaints at this time. Chief Complaint (Nursing): ENT Problem History Per: Patient History/Exam Limitations: None Onset/Duration Of Symptoms: Hrs Current Symptoms Are (Timing): Gone Past Medical History Reviewed: Historical Data, Nursing Documentation, Vital Signs Vital Signs: Last Vital Signs Temp 97.6 F 11/14/17 10:01 Pulse 76 11/14/17 10:01 Resp 22 11/14/17 10:01 BP 91/76 L 11/14/17 10:01 Pulse Ox 100 11/14/17 12:58 - Medical History PMH: Arthritis, COPD (PER FAMILY), Dementia (PER FAMILY), Diabetes, HTN, Hypercholesterolemia Denies: Chronic Kidney Disease Surgical History: Pacemaker - [facility] Procedures FLUOROSCOPY OF MULT COR ART USING L OSM CONTRAST (09/12/17) FLUOROSCOPY OF RIGHT AND LEFT HEART USING L OSM CONTRAST (09/12/17) INSERTION OF INFUSION DEV INTO SUP VENA CAVA, PERC APPROACH (01/26/17) INTRODUCE LOCAL ANESTH IN PERIPH NRV, PLEXI, PERC (12/01/16) INTRODUCTION OF SERUM/TOX/VACCINE INTO MUSCLE, PERC APPROACH (12/01/16) MEASURE OF CARDIAC SAMPL & PRESSURE, L HEART, PERC APPROACH (09/12/17) REPOSITION RIGHT FIBULA WITH INT FIX, OPEN APPROACH (12/01/16) REPOSITION RIGHT TIBIA WITH INT FIX, OPEN APPROACH (12/01/16) Family History: States: Unknown Family Hx - Social History Hx Tobacco Use: Yes Hx Alcohol Use: No Hx Substance Use: No - Immunization History Hx Tetanus Toxoid Vaccination: No Hx Influenza Vaccination: Yes ( PER PATIENT) Hx Pneumococcal Vaccination: Yes ( PER PATIENT) Review Of Systems ENT: Positive for: Other (nose bleed ) Neurological: Negative for: Headache Physical Exam - Physical Exam Appears: Non-toxic, No Acute Distress Skin: Normal Color, Warm Head: Atraumatic, Tenderness Eye(s): bilateral: Normal Inspection Nose: No Epistaxis (active), Other (dry blood in bilateral nares) Oral Mucosa: Moist Neck: Supple Chest: Symmetrical, No Deformity, No Tenderness, Other (left mastectomy ) Cardiovascular: Rhythm Regular, No Murmur, Other (pacemaker ) Respiratory: Normal Breath Sounds, No Rales, No Rhonchi, No Wheezing Extremity: Normal ROM, Capillary Refill (less than 2 seconds ) Neurological/Psych: Oriented x3, Normal Speech, Normal Cognition ED Course And Treatment - Laboratory Results Result Diagrams: 11/14/17 08:18 11/14/17 08:18 O2 Sat by Pulse Oximetry: 100 (on RA) Pulse Ox Interpretation: Normal Medical Decision Making Medical Decision Making: Impression: 77 year old female with nose bleed Plan: * bloodwork * reassess and disposition Progress: Bloodwork ordered and reviewed. Case discussed with patient's PMD, Dr. Celso Bonilla. He is made aware of patient's elevated bicarbonate levels. Advised to instruct patient to follow up with him in office. On reassessment, patient is resting comfortably, showing no signs of distress, and no longer has a nose bleed. Patient is advised to follow up with her PMD within 1-2 days for evaluation and/or return to the ED if symptoms return or persist. Disposition - Disposition Referrals: Celso Bonilla MD [Staff Provider] - Disposition: HOME/ ROUTINE Disposition Time: 10:00 Condition: GOOD Additional Instructions: Thank you for letting us take care of you today. The emergency medical care you received today was directed at your acute symptoms. If you were prescribed any medication, please fill it and take as directed. It may take several days for your symptoms to resolve. Return to the Emergency Department if your symptoms worsen, do not improve, or if you have any other problems. Please contact your doctor or call one of the physicians/clinics you have been referred to that are listed on the Patient Visit Information form that is included in your discharge packet. Bring any paperwork you were given at discharge with you along with any medications you are taking to your follow up visit. Our treatment cannot replace ongoing medical care by a primary care provider (PCP) outside of the emergency department. Thank you for allowing the [facility] team to be part of your care today. Follow up with your primary care doctor in 2-3 days for re-evaluation and further management. Instructions: Nosebleeds (DC) Forms: [employer] (Lithuanian) - Clinical Impression Clinical Impression: Epistaxis - Scribe Statement The provider has reviewed the documentation as recorded by the Scribe ([place]) Provider Attestation: All medical record entries made by the Scribe were at my direction and personally dictated by me. I have reviewed the chart and agree that the record accurately reflects my personal performance of the history, physical exam, medical decision making, and the department course for this patient. I have also personally directed, reviewed, and agree with the discharge instructions and disposition.
== END 2017-11-14 10:50 | disposition home or self-care (01) ==
LOC: C.ER 07:42
DX: R04.0 Epistaxis (principal)

== ENCOUNTER 2017-12-22 15:01 | Inpatient (IN) | payer MEDICARE, OTHER ==
[2017-12-22 15:02] VITALS: BMI 18.8
[2017-12-22 16:21] LABS: BASO # 0.1 K/uL (0.0-0.2); BASO % 0.8 % (0.0-2.0); EOS # 0.1 K/uL (0.0-0.7); EOS % 1.4 % (0.0-4.0); HEMOGLOBIN 9.9 g/dL (11.0-16.0); LYMPH # 0.9 K/uL (1.0-4.3); LYMPH % 12.7 % (20.0-40.0); MEAN CELL VOLUME 79.1 fL (81.0-99.0); MEAN CORPUSCULAR HEMOGLOBIN 25.2 pg (27.0-31.0); MEAN CORPUSCULAR HGB CONC 31.9 g/dL (33.0-37.0); MEAN PLATELET VOLUME 8.5 fL (7.2-11.7); MONO # 0.7 K/uL (0.0-0.8); MONO % 9.8 % (0.0-10.0); NEUT # 5.2 K/uL (1.8-7.0); NEUT % 75.3 % (50.0-75.0); RBC 3.93 Mil/uL (3.80-5.20); RED CELL DISTRIBUTION WIDTH 17.7 % (11.5-14.5); WHITE BLOOD COUNT 6.9 K/uL (4.8-10.8)
--- NOTE | 2017-12-22 16:27 | C.PDOC ---
History Of Present Illness 77 y/o female brought to the ED by family for worsening leg edema and abdominal bloating. Associated with SOB and dyspnea on exertion. Patient was hospitalized inpatient from 10/21 to 11/07 for CHF. An echocardiogram during that stay noted EF of 10-15%. Patient has been over-drinking her diuretics. Time Seen by Provider: 12/22/17 15:45 Chief Complaint (Nursing): Abdominal Pain History Per: Patient History/Exam Limitations: no limitations Onset/Duration Of Symptoms: Days Current Symptoms Are (Timing): Worse Additional History Per: Family Past Medical History Reviewed: Historical Data, Nursing Documentation, Vital Signs Vital Signs: Last Vital Signs Temp 97.5 F L 12/22/17 15:42 Pulse 81 12/22/17 17:01 Resp 20 12/22/17 17:01 BP 115/61 12/22/17 17:01 Pulse Ox 98 12/22/17 17:01 - Medical History PMH: Arthritis, COPD (PER FAMILY), Dementia (PER FAMILY), Diabetes, HTN, Hypercholesterolemia Denies: Chronic Kidney Disease Surgical History: Pacemaker - [facility] Procedures FLUOROSCOPY OF MULT COR ART USING L OSM CONTRAST (09/12/17) FLUOROSCOPY OF RIGHT AND LEFT HEART USING L OSM CONTRAST (09/12/17) INSERTION OF INFUSION DEV INTO SUP VENA CAVA, PERC APPROACH (01/26/17) INTRODUCE LOCAL ANESTH IN PERIPH NRV, PLEXI, PERC (12/01/16) INTRODUCTION OF SERUM/TOX/VACCINE INTO MUSCLE, PERC APPROACH (12/01/16) MEASURE OF CARDIAC SAMPL & PRESSURE, L HEART, PERC APPROACH (09/12/17) REPOSITION RIGHT FIBULA WITH INT FIX, OPEN APPROACH (12/01/16) REPOSITION RIGHT TIBIA WITH INT FIX, OPEN APPROACH (12/01/16) Family History: States: Unknown Family Hx - Social History Hx Tobacco Use: Yes Hx Alcohol Use: No Hx Substance Use: No - Immunization History Hx Tetanus Toxoid Vaccination: No Hx Influenza Vaccination: Yes ( PER PATIENT) Hx Pneumococcal Vaccination: Yes ( PER PATIENT) Review Of Systems Except As Marked, All Systems Reviewed And Found Negative. Constitutional: Negative for: Fever Respiratory: Positive for: Shortness of Breath, SOB with Excertion Gastrointestinal: Positive for: Other (abdominal bloating). Negative for: Nausea, Vomiting, Diarrhea Musculoskeletal: Positive for: Other (leg edema) Physical Exam - Physical Exam Appears: No Acute Distress, Chronically Ill, Other (Thin) Skin: Normal Color, Warm, Dry Head: Atraumatic, Normacephalic Eye(s): bilateral: Normal Inspection, PERRL, EOMI Nose: Normal Oral Mucosa: Moist Neck: Normal ROM, Other (+ JVD) Cardiovascular: Rhythm Regular, No Murmur Respiratory: No Accessory Muscle Use, Rales, No Rhonchi, No Wheezing Gastrointestinal/Abdominal: Soft, No Tenderness, No Guarding, No Rebound Extremity: Normal ROM, No Calf Tenderness, Swelling (Pitting edema from hips to feet, symmetrical) Pulses: Left Dorsalis Pedis: Normal, Right Dorsalis Pedis: Normal Neurological/Psych: Oriented x3, Normal Speech, Normal Cranial Nerves, Normal Motor, Normal Sensation ED Course And Treatment - Laboratory Results Result Diagrams: 12/22/17 16:17 18 16:17 Lab Interpretation: Abnormal (+ anemia, + BNP 23,100 H, UA neg,) ECG: Interpreted By La ECG Rhythm: Sinus Rhythm ECG Interpretation: Normal Rate From EC O2 Sat by Pulse Oximetry: 99 (RA) Pulse Ox Interpretation: Normal - Radiology CXR: Interpreted by La CXR Interpretation: Yes: Other (+ CHF, + R>L pleural effusion) Progress Note: lasix 40 IV Reevaluation Time: 16:54 Reassessment Condition: Improved - Physician Consult Information Outcome Of Conversation: 1630: d/w gerald Holm to admit. 1630: d/w gerald Headley to consult Medical Decision Making Medical Decision Making: Time: 16:06 Initial Plan: --EKG --CMP --Pro-BNP --Troponin I --CBC --PTT --Prothrombin time --Chest x-ray --Urinalysis --Lasix 40 mg IVP --Reassessment overdrinking diuretics Disposition Doctor Will See Patient In The: Hospital Counseled Patient/Family Regarding: Studies Performed, Diagnosis - Disposition Disposition: HOSPITALIZED Disposition Time: 16:57 Condition: FAIR - Clinical Impression Clinical Impression: CHF (congestive heart failure) - Scribe Statement The provider has reviewed the documentation as recorded by the Pily Miller Provider Attestation: All medical record entries made by the Zachibpretty were at my direction and personally dictated by me. I have reviewed the chart and agree that the record accurately reflects my personal performance of the history, physical exam, medical decision making, and the department course for this patient. I have also personally directed, reviewed, and agree with the discharge instructions and disposition.
[2017-12-22 16:29] LABS: INR 1.2; PROTHROMBIN TIME 13.5 SECONDS (9.7-12.2)
[2017-12-22 16:33] LABS: ALBUMIN 3.3 g/dL (3.5-5.0); ALT/SGPT 30 U/L (9-52); AST/SGOT 25 U/L (14-36); BLOOD UREA NITROGEN 37 mg/dL (7-17); CALCIUM 8.4 mg/dl (8.6-10.4); GFR AFRICAN-AMERICAN > 60; GFR NON-AFRICAN AMERICAN > 60
[2017-12-22 16:44] LABS: B-TYPE NATRIURETIC PEPTIDE 23100 pg/mL (0-900)
[2017-12-22 16:58] LABS: SQUAMOUS EPITHIAL < 1 /hpf (0-5); URINE BACTERIA OCC (<OCC); URINE BILIRUBIN NEGATIVE (NEGATIVE); URINE BLOOD NEGATIVE (NEGATIVE); URINE COLOR Yellow (YELLOW); URINE GLUCOSE (UA) NORMAL (Normal); URINE LEUKOCYTE ESTERASE NEG Leu/uL (Negative); URINE PROTEIN NEGATIVE (NEGATIVE); URINE UROBILINOGEN NORMAL mg/dL (0.2-1.0)
[2017-12-22 17:06] LABS: URINE CLARITY CLEAR (Clear)
--- NOTE | 2017-12-22 18:11 | RAD ---
Chest x-ray single frontal view History: Shortness of breath. Comparison: 10/21/2017 Findings: Moderate bilateral pleural effusions. Dense linear consolidative changes in the right mid lung zone with more consolidative opacification throughout the lower lobe. Consolidative changes at the left lung base. Biapical pleural thickening with upper lobe granulomatous changes. Cardiomegaly. Degenerative changes in the spine. Left-sided pacemaker. Impression: Moderate bilateral pleural effusions. Dense linear consolidative changes in the right mid lung zone with more consolidative opacification throughout the lower lobe. Consolidative changes at the left lung base. Biapical pleural thickening with upper lobe granulomatous changes. Cardiomegaly. Degenerative changes in the spine. Left-sided pacemaker.
[2017-12-22] MEDS: (Novolin R) Insulin Human Regular 100 units/ml vial SC SCH (21:24)
[2017-12-22 22:42] LABS: CK-MB 1.71 ng/mL (0.0-3.38)
--- NOTE | 2017-12-23 05:43 | CP.PCM.HP ---
History of Present Illness - History of Present Illness History of Present Illness: History Of Present Illness 77 y/o female brought to the ED by family for worsening leg edema and abdominal bloating. Associated with SOB and dyspnea on exertion. Patient was hospitalized inpatient from 10/21 to 11/07 for CHF. An echocardiogram during that stay noted EF of 10-15%. Patient has been over-drinking her diuretics. Past Patient History - Infectious Disease Hx of Infectious Diseases: None - Past Medical History & Family History Past Medical History?: Yes - Past Social History Smoking Status: Never Smoked - CARDIAC Hx Hypercholesterolemia: Yes Hx Hypertension: Yes Hx Pacemaker: Yes - PULMONARY Hx Chronic Obstructive Pulmonary Disease (COPD): Yes (PER FAMILY) - NEUROLOGICAL Hx Dementia: Yes (PER FAMILY) - HEENT Hx HEENT Problems: No - RENAL Hx Chronic Kidney Disease: No - ENDOCRINE/METABOLIC Hx Diabetes Mellitus Type 2: Yes - HEMATOLOGICAL/ONCOLOGICAL Hx Blood Disorders: Yes Hx Cancer: Yes (BREAST) Other/Comment: LEFT MASTECTOMY - INTEGUMENTARY Hx Dermatological Problems: No - MUSCULOSKELETAL/RHEUMATOLOGICAL Hx Falls: Yes - GASTROINTESTINAL Hx Gastrointestinal Disorders: No - GENITOURINARY/GYNECOLOGICAL Hx Genitourinary Disorders: No - PSYCHIATRIC Hx Substance Use: No - SURGICAL HISTORY Hx Surgeries: Yes Hx Section: Yes Hx Mastectomy: Yes (LEFT) Other/Comment: PACEMAKER. AICD - ANESTHESIA Hx Anesthesia: Yes Hx Anesthesia Reactions: No Meds Allergies/Adverse Reactions: Allergies Allergy/AdvReac Type Severity Reaction Status Date / Time No Known Allergies Allergy Verified 12/22/17 15:21 Results - Vital Signs Recent Vital Signs: Last Vital Signs Temp 98.0 F 12/22/17 23:32 Pulse 68 12/22/17 23:32 Resp 20 12/22/17 23:32 BP 105/63 12/22/17 23:32 Pulse Ox 100 12/22/17 23:32 - Labs Result Diagrams: 12/22/17 16:17 12/22/17 16:17 Labs: Laboratory Results - last 24 hr 12/22/17 12/22/17 12/22/17 16:17 16:17 16:17 WBC 6.9 RBC 3.93 Hgb 9.9 L Hct 31.1 L MCV 79.1 L D MCH 25.2 L MCHC 31.9 L RDW 17.7 H Plt Count 404 H MPV 8.5 Neut % (Auto) 75.3 H Lymph % (Auto) 12.7 L [place] % (Auto) 9.8 Eos % (Auto) 1.4 Baso % (Auto) 0.8 Neut # (Auto) 5.2 Lymph # (Auto) 0.9 L [place] # (Auto) 0.7 Eos # (Auto) 0.1 Baso # (Auto) 0.1 PT 13.5 H INR 1.2 APTT 36 H Sodium 127 L Potassium 4.7 Chloride 87 L Carbon Dioxide 31 H Anion Gap 12 BUN 37 H Creatinine 0.8 Est GFR ( Amer) > 60 Est GFR (Non-Af Amer) > 60 POC Glucose (mg/dL) Random Glucose 192 H Calcium 8.4 L Total Bilirubin 0.6 AST 25 ALT 30 Alkaline Phosphatase 79 Total Creatine Kinase CK-MB (Mass) Troponin I 0.0150 NT-Pro-B Natriuret Pep 70390 H Total Protein 6.6 Albumin 3.3 L Globulin 3.3 Albumin/Globulin Ratio 1.0 Urine Color Urine Clarity Urine pH Ur Specific [place] Urine Protein Urine Glucose (UA) Urine Ketones Urine Blood Urine Nitrate Urine Bilirubin Urine Urobilinogen Ur Leukocyte Esterase Urine WBC (Auto) Urine RBC (Auto) Ur Squamous Epith Cells Ur Transition Epith Cell Urine Bacteria 12/22/17 12/22/17 12/22/17 16:48 20:55 22:13 WBC RBC Hgb Hct MCV MCH MCHC RDW Plt Count MPV Neut % (Auto) Lymph % (Auto) [place] % (Auto) Eos % (Auto) Baso % (Auto) Neut # (Auto) Lymph # (Auto) [place] # (Auto) Eos # (Auto) Baso # (Auto) PT INR APTT Sodium Potassium Chloride Carbon Dioxide Anion Gap BUN Creatinine Est GFR ( Amer) Est GFR (Non-Af Amer) POC Glucose (mg/dL) 131 H Random Glucose Calcium Total Bilirubin AST ALT Alkaline Phosphatase Total Creatine Kinase < 20 L CK-MB (Mass) 1.71 Troponin I 0.0170 NT-Pro-B Natriuret Pep Total Protein Albumin Globulin Albumin/Globulin Ratio Urine Color Yellow Urine Clarity Clear Urine pH 6.0 Ur Specific [place] 1.008 Urine Protein Negative Urine Glucose (UA) Normal Urine Ketones Negative Urine Blood Negative Urine Nitrate Negative Urine Bilirubin Negative Urine Urobilinogen Normal Ur Leukocyte Esterase Neg Urine WBC (Auto) < 1 Urine RBC (Auto) < 1 Ur Squamous Epith Cells < 1 Ur Transition Epith Cell < 1 Urine Bacteria Occ H
[2017-12-23 05:54] LABS: CK-MB 1.69 ng/mL (0.0-3.38); TROPONIN I 0.033 ng/mL (0.00-0.120)
[2017-12-23] MEDS: (Novolin R) Insulin Human Regular 100 units/ml vial SC SCH ×4 (07:50→22:26)
--- NOTE | 2017-12-23 08:12 | CP.PCM.CON ---
History of Present Illness - History of Present Illness History of Present Illness: patient seen/examined. I am covering for Dr Robledo. patient is a 77 year old female with ischemic cardiomyopathy s/p AICD, CAD with occluded LAD (nonviable anterior wall) who presents with dizziness and dyspnea. no current dyspnea or chest pain. medical therapy. add Coreg. Past Patient History - Infectious Disease Hx of Infectious Diseases: None - Past Medical History & Family History Past Medical History?: Yes - Past Social History Smoking Status: Never Smoked - CARDIAC Hx Hypercholesterolemia: Yes Hx Hypertension: Yes Hx Pacemaker: Yes - PULMONARY Hx Chronic Obstructive Pulmonary Disease (COPD): Yes (PER FAMILY) - NEUROLOGICAL Hx Dementia: Yes (PER FAMILY) - HEENT Hx HEENT Problems: No - RENAL Hx Chronic Kidney Disease: No - ENDOCRINE/METABOLIC Hx Diabetes Mellitus Type 2: Yes - HEMATOLOGICAL/ONCOLOGICAL Hx Blood Disorders: Yes Hx Cancer: Yes (BREAST) Other/Comment: LEFT MASTECTOMY - INTEGUMENTARY Hx Dermatological Problems: No - MUSCULOSKELETAL/RHEUMATOLOGICAL Hx Falls: Yes - GASTROINTESTINAL Hx Gastrointestinal Disorders: No - GENITOURINARY/GYNECOLOGICAL Hx Genitourinary Disorders: No - PSYCHIATRIC Hx Substance Use: No - SURGICAL HISTORY Hx Surgeries: Yes Hx Section: Yes Hx Mastectomy: Yes (LEFT) Other/Comment: PACEMAKER. AICD - ANESTHESIA Hx Anesthesia: Yes Hx Anesthesia Reactions: No Meds Allergies/Adverse Reactions: Allergies Allergy/AdvReac Type Severity Reaction Status Date / Time No Known Allergies Allergy Verified 12/22/17 15:21 - Medications Medications: Current Medications Acetaminophen (Tylenol 325mg Tab) 650 mg PO Q6 PRN PRN Reason: Pain, moderate (4-7) Aspirin (Aspirin Chewable) 81 mg PO DAILY [facility] Clopidogrel Bisulfate (Plavix) 75 mg PO DAILY [facility] Donepezil HCl (Aricept) 10 mg PO HS [facility] Last Admin: 12/22/17 21:36 Dose: 10 mg Enoxaparin Sodium (Lovenox) 30 mg SC DAILY [facility] Furosemide (Lasix) 40 mg IVP DAILY [facility] Insulin Human Regular (Novolin R) 0 unit SC ACHS [facility] PRN Reason: Protocol Last Admin: 12/23/17 07:50 Dose: Not Given Lorazepam (Ativan) 0.5 mg PO Q12 PRN PRN Reason: Anxiety Multivitamins (Hexavitamin) 1 tab PO DAILY [facility] Rosuvastatin Calcium (Crestor) 10 mg PO HS [facility] Last Admin: 12/22/17 21:36 Dose: 10 mg Sitagliptin Phosphate (Januvia) 25 mg PO DAILY [facility] Results - Vital Signs Recent Vital Signs: Last Vital Signs Temp 98.0 F 12/22/17 23:32 Pulse 66 12/23/17 08:01 Resp 20 12/22/17 23:32 BP 105/63 12/22/17 23:32 Pulse Ox 100 12/22/17 23:32 - Labs Result Diagrams: 12/22/17 16:17 12/22/17 16:17 Labs: Laboratory Results - last 24 hr 12/22/17 12/22/17 12/22/17 16:17 16:17 16:17 WBC 6.9 RBC 3.93 Hgb 9.9 L Hct 31.1 L MCV 79.1 L D MCH 25.2 L MCHC 31.9 L RDW 17.7 H Plt Count 404 H MPV 8.5 Neut % (Auto) 75.3 H Lymph % (Auto) 12.7 L [place] % (Auto) 9.8 Eos % (Auto) 1.4 Baso % (Auto) 0.8 Neut # (Auto) 5.2 Lymph # (Auto) 0.9 L [place] # (Auto) 0.7 Eos # (Auto) 0.1 Baso # (Auto) 0.1 PT 13.5 H INR 1.2 APTT 36 H Sodium 127 L Potassium 4.7 Chloride 87 L Carbon Dioxide 31 H Anion Gap 12 BUN 37 H Creatinine 0.8 Est GFR ( Amer) > 60 Est GFR (Non-Af Amer) > 60 POC Glucose (mg/dL) Random Glucose 192 H Calcium 8.4 L Total Bilirubin 0.6 AST 25 ALT 30 Alkaline Phosphatase 79 Total Creatine Kinase CK-MB (Mass) Troponin I 0.0150 NT-Pro-B Natriuret Pep 19071 H Total Protein 6.6 Albumin 3.3 L Globulin 3.3 Albumin/Globulin Ratio 1.0 Urine Color Urine Clarity Urine pH Ur Specific [place] Urine Protein Urine Glucose (UA) Urine Ketones Urine Blood Urine Nitrate Urine Bilirubin Urine Urobilinogen Ur Leukocyte Esterase Urine WBC (Auto) Urine RBC (Auto) Ur Squamous Epith Cells Ur Transition Epith Cell Urine Bacteria 12/22/17 12/22/17 12/22/17 16:48 20:55 22:13 WBC RBC Hgb Hct MCV MCH MCHC RDW Plt Count MPV Neut % (Auto) Lymph % (Auto) [place] % (Auto) Eos % (Auto) Baso % (Auto) Neut # (Auto) Lymph # (Auto) [place] # (Auto) Eos # (Auto) Baso # (Auto) PT INR APTT Sodium Potassium Chloride Carbon Dioxide Anion Gap BUN Creatinine Est GFR ( Amer) Est GFR (Non-Af Amer) POC Glucose (mg/dL) 131 H Random Glucose Calcium Total Bilirubin AST ALT Alkaline Phosphatase Total Creatine Kinase < 20 L CK-MB (Mass) 1.71 Troponin I 0.0170 NT-Pro-B Natriuret Pep Total Protein Albumin Globulin Albumin/Globulin Ratio Urine Color Yellow Urine Clarity Clear Urine pH 6.0 Ur Specific [place] 1.008 Urine Protein Negative Urine Glucose (UA) Normal Urine Ketones Negative Urine Blood Negative Urine Nitrate Negative Urine Bilirubin Negative Urine Urobilinogen Normal Ur Leukocyte Esterase Neg Urine WBC (Auto) < 1 Urine RBC (Auto) < 1 Ur Squamous Epith Cells < 1 Ur Transition Epith Cell < 1 Urine Bacteria Occ H 12/23/17 12/23/17 04:37 06:28 WBC RBC Hgb Hct MCV MCH MCHC RDW Plt Count MPV Neut % (Auto) Lymph % (Auto) [place] % (Auto) Eos % (Auto) Baso % (Auto) Neut # (Auto) Lymph # (Auto) [place] # (Auto) Eos # (Auto) Baso # (Auto) PT INR APTT Sodium Potassium Chloride Carbon Dioxide Anion Gap BUN Creatinine Est GFR ( Amer) Est GFR (Non-Af Amer) POC Glucose (mg/dL) 101 Random Glucose Calcium Total Bilirubin AST ALT Alkaline Phosphatase Total Creatine Kinase 20 L CK-MB (Mass) 1.69 Troponin I 0.0330 NT-Pro-B Natriuret Pep Total Protein Albumin Globulin Albumin/Globulin Ratio Urine Color Urine Clarity Urine pH Ur Specific [place] Urine Protein Urine Glucose (UA) Urine Ketones Urine Blood Urine Nitrate Urine Bilirubin Urine Urobilinogen Ur Leukocyte Esterase Urine WBC (Auto) Urine RBC (Auto) Ur Squamous Epith Cells Ur Transition Epith Cell Urine Bacteria
[2017-12-23] MEDS: Multiple Vitamins Tab PO SCH (10:17)
[2017-12-23] MEDS: Enoxaparin 30 mg Syringe SC SCH (10:17)
--- NOTE | 2017-12-23 13:08 | CP.PCM.CON ---
History of Present Illness - History of Present Illness History of Present Illness: Reason for Consult: Pleural Effusion 77 year old female with PMHx of HTN, DM, CHF, and HTN presented to ED due to worsening leg edema, Shortness of breath, and dyspnea on exertion. Patient is known to pulmonary team. Patient was recently hospitalized from 10/21-11/07 for CHF exacerbation. Patient is currently resting comfortably in bed with no complaints. Allergies: NKDA PMHx: Ischemic cardiomyopathy, HTN, DM, CHF, and HTN PSHx: Pacemaker, AICD , Left Mastectomy Social Hx: Tobacco use 1PPD for past 40 years. Assessment/Plan: 1. Pleural Effusion secondary to CHF - CXR 12/22: Moderate bilateral pleural effusions. Dense linear consolidative changes in right midd lung zone. - WBC 12/22: 6.9 - diuretics as tolerated 2. CHF ejection fraction 15-20% - Continue Lasix - Management per Cardiology Recommendations 3. Diabetes Mellitus - Management per primary team 4. HTN - Management per primary team Past Patient History - Infectious Disease Hx of Infectious Diseases: None - Past Medical History & Family History Past Medical History?: Yes - Past Social History Smoking Status: Never Smoked - CARDIAC Hx Hypercholesterolemia: Yes Hx Hypertension: Yes - PULMONARY Hx Chronic Obstructive Pulmonary Disease (COPD): Yes (PER FAMILY) - NEUROLOGICAL Hx Dementia: Yes (PER FAMILY) - HEENT Hx HEENT Problems: No - RENAL Hx Chronic Kidney Disease: No - ENDOCRINE/METABOLIC Hx Diabetes Mellitus Type 2: Yes - HEMATOLOGICAL/ONCOLOGICAL Hx Blood Disorders: Yes Hx Cancer: Yes (BREAST) Other/Comment: LEFT MASTECTOMY - INTEGUMENTARY Hx Dermatological Problems: No - MUSCULOSKELETAL/RHEUMATOLOGICAL Hx Falls: Yes - GASTROINTESTINAL Hx Gastrointestinal Disorders: No - GENITOURINARY/GYNECOLOGICAL Hx Genitourinary Disorders: No - PSYCHIATRIC Hx Substance Use: No - SURGICAL HISTORY Hx Surgeries: Yes Hx Section: Yes Hx Mastectomy: Yes (LEFT) Other/Comment: PACEMAKER. AICD - ANESTHESIA Hx Anesthesia: Yes Hx Anesthesia Reactions: No Meds Allergies/Adverse Reactions: Allergies Allergy/AdvReac Type Severity Reaction Status Date / Time No Known Allergies Allergy Verified 12/22/17 15:21 - Medications Medications: Current Medications Acetaminophen (Tylenol 325mg Tab) 650 mg PO Q6 PRN PRN Reason: Pain, moderate (4-7) Aspirin (Aspirin Chewable) 81 mg PO DAILY [facility] Last Admin: 12/23/17 10:17 Dose: 81 mg Carvedilol (Coreg) 6.25 mg PO BID [facility] Last Admin: 12/23/17 11:49 Dose: Not Given Clopidogrel Bisulfate (Plavix) 75 mg PO DAILY [facility] Last Admin: 12/23/17 10:17 Dose: 75 mg Donepezil HCl (Aricept) 10 mg PO HS [facility] Last Admin: 12/22/17 21:36 Dose: 10 mg Enoxaparin Sodium (Lovenox) 30 mg SC DAILY [facility] Last Admin: 12/23/17 10:17 Dose: 30 mg Furosemide (Lasix) 40 mg IVP DAILY [facility] Last Admin: 12/23/17 11:50 Dose: Not Given Insulin Human Regular (Novolin R) 0 unit SC [facility] PRN Reason: Protocol Last Admin: 12/23/17 12:30 Dose: Not Given Lorazepam (Ativan) 0.5 mg PO Q12 PRN PRN Reason: Anxiety Multivitamins (Hexavitamin) 1 tab PO DAILY [facility] Last Admin: 12/23/17 10:17 Dose: 1 tab Rosuvastatin Calcium (Crestor) 10 mg PO HS [facility] Last Admin: 12/22/17 21:36 Dose: 10 mg Sitagliptin Phosphate (Januvia) 25 mg PO DAILY [facility] Last Admin: 12/23/17 10:17 Dose: 25 mg Results - Vital Signs Recent Vital Signs: Last Vital Signs Temp 97.5 F L 12/23/17 07:00 Pulse 71 12/23/17 12:08 Resp 18 12/23/17 07:00 BP 93/53 L 12/23/17 12:35 Pulse Ox 100 12/23/17 07:00 - Labs Result Diagrams: 12/22/17 16:17 12/22/17 16:17 Labs: Laboratory Results - last 24 hr 12/22/17 12/22/17 12/22/17 16:17 16:17 16:17 WBC 6.9 RBC 3.93 Hgb 9.9 L Hct 31.1 L MCV 79.1 L D MCH 25.2 L MCHC 31.9 L RDW 17.7 H Plt Count 404 H MPV 8.5 Neut % (Auto) 75.3 H Lymph % (Auto) 12.7 L [place] % (Auto) 9.8 Eos % (Auto) 1.4 Baso % (Auto) 0.8 Neut # (Auto) 5.2 Lymph # (Auto) 0.9 L [place] # (Auto) 0.7 Eos # (Auto) 0.1 Baso # (Auto) 0.1 PT 13.5 H INR 1.2 APTT 36 H Sodium 127 L Potassium 4.7 Chloride 87 L Carbon Dioxide 31 H Anion Gap 12 BUN 37 H Creatinine 0.8 Est GFR ( Amer) > 60 Est GFR (Non-Af Amer) > 60 POC Glucose (mg/dL) Random Glucose 192 H Calcium 8.4 L Total Bilirubin 0.6 AST 25 ALT 30 Alkaline Phosphatase 79 Total Creatine Kinase CK-MB (Mass) Troponin I 0.0150 NT-Pro-B Natriuret Pep 71755 H Total Protein 6.6 Albumin 3.3 L Globulin 3.3 Albumin/Globulin Ratio 1.0 Urine Color Urine Clarity Urine pH Ur Specific [place] Urine Protein Urine Glucose (UA) Urine Ketones Urine Blood Urine Nitrate Urine Bilirubin Urine Urobilinogen Ur Leukocyte Esterase Urine WBC (Auto) Urine RBC (Auto) Ur Squamous Epith Cells Ur Transition Epith Cell Urine Bacteria 12/22/17 12/22/17 12/22/17 16:48 20:55 22:13 WBC RBC Hgb Hct MCV MCH MCHC RDW Plt Count MPV Neut % (Auto) Lymph % (Auto) [place] % (Auto) Eos % (Auto) Baso % (Auto) Neut # (Auto) Lymph # (Auto) [place] # (Auto) Eos # (Auto) Baso # (Auto) PT INR APTT Sodium Potassium Chloride Carbon Dioxide Anion Gap BUN Creatinine Est GFR ( Amer) Est GFR (Non-Af Amer) POC Glucose (mg/dL) 131 H Random Glucose Calcium Total Bilirubin AST ALT Alkaline Phosphatase Total Creatine Kinase < 20 L CK-MB (Mass) 1.71 Troponin I 0.0170 NT-Pro-B Natriuret Pep Total Protein Albumin Globulin Albumin/Globulin Ratio Urine Color Yellow Urine Clarity Clear Urine pH 6.0 Ur Specific [place] 1.008 Urine Protein Negative Urine Glucose (UA) Normal Urine Ketones Negative Urine Blood Negative Urine Nitrate Negative Urine Bilirubin Negative Urine Urobilinogen Normal Ur Leukocyte Esterase Neg Urine WBC (Auto) < 1 Urine RBC (Auto) < 1 Ur Squamous Epith Cells < 1 Ur Transition Epith Cell < 1 Urine Bacteria Occ H 12/23/17 12/23/17 04:37 06:28 WBC RBC Hgb Hct MCV MCH MCHC RDW Plt Count MPV Neut % (Auto) Lymph % (Auto) [place] % (Auto) Eos % (Auto) Baso % (Auto) Neut # (Auto) Lymph # (Auto) [place] # (Auto) Eos # (Auto) Baso # (Auto) PT INR APTT Sodium Potassium Chloride Carbon Dioxide Anion Gap BUN Creatinine Est GFR ( Amer) Est GFR (Non-Af Amer) POC Glucose (mg/dL) 101 Random Glucose Calcium Total Bilirubin AST ALT Alkaline Phosphatase Total Creatine Kinase 20 L CK-MB (Mass) 1.69 Troponin I 0.0330 NT-Pro-B Natriuret Pep Total Protein Albumin Globulin Albumin/Globulin Ratio Urine Color Urine Clarity Urine pH Ur Specific [place] Urine Protein Urine Glucose (UA) Urine Ketones Urine Blood Urine Nitrate Urine Bilirubin Urine Urobilinogen Ur Leukocyte Esterase Urine WBC (Auto) Urine RBC (Auto) Ur Squamous Epith Cells Ur Transition Epith Cell Urine Bacteria
--- NOTE | 2017-12-23 21:30 | PCM.FALL ---
Post Fall Progress Note - Post Fall Fall Date: 12/23/17 Fall Time: 21:11 - Post Fall Exam Vital Sign: Temp Pulse Resp BP Pulse Ox 98.2 F 92 H 18 101/56 L 97 12/23/17 15:00 12/23/17 18:00 12/23/17 15:00 12/23/17 15:00 12/23/17 15:00 Skull Exam: Negative for: Scalp wound, Scalp hematoma Eye Exam: Positive for: Pupils equal, Pupils reactive Skin Exam: Negative for: Lacerations, Grazes, Bruising Chest Exam: Negative for: Difficulty breathing Abdomen Exam: Negative for: Tenderness Arm Exam: Negative for: Deformity Leg Exam: Positive for: Alteration in range of movement (Right knee; decreased due to pain). Negative for: Deformity Other pertinent findings: No bruising, tenderness to palpation, or lacerations on the back/buttocks. Tenderness in right knee, pain with flexion; no erythema, swelling, bruising, or lacerations noted. Impression/Plan: Patient was found sitting on the floor by nursing staff. Patient is disoriented and states she was "laying on the floor to find her money". Patient denies hitting her head and denies back/buttock pain. Vitals were taken- BP 104/54, HR 89. Glucose was checked. Patient was moved to the bed and complained of right knee pain. Right knee xray was ordered. Patient continuously trying to get out of bed- 1:1 observation was ordered.
--- NOTE | 2017-12-24 04:17 | CP.PCM.PN ---
Subjective - Date & Time of Evaluation Date of Evaluation: 12/23/17 Time of Evaluation: 20:00 - Subjective Subjective: pt seen and examined at bedside, pt had a fall today, Patient was found sitting on the floor by nursing staff. Patient is disoriented and states she was " laying on the floor to find her money". Patient denies hitting her head and denies back/buttock pain. Vitals were taken- BP 104/54, HR 89. Glucose was checked. Patient was moved to the bed and complained of right knee pain. Right knee xray was ordered. Patient continuously trying to get out of bed- 1:1 observation was ordered. Objective - Vital Signs/Intake and Output Vital Signs (last 24 hours): Temp Pulse Resp BP Pulse Ox 98 F 80 18 103/64 97 12/24/17 02:38 12/24/17 02:38 12/24/17 02:38 12/24/17 02:38 12/24/17 02:38 Intake and Output: 12/23/17 12/24/17 18:59 06:59 Intake Total 300 Balance 300 - Medications Medications: Current Medications Acetaminophen (Tylenol 325mg Tab) 650 mg PO Q6 PRN PRN Reason: Pain, moderate (4-7) Last Admin: 12/24/17 00:11 Dose: 650 mg Aspirin (Aspirin Chewable) 81 mg PO DAILY [facility] Last Admin: 12/23/17 10:17 Dose: 81 mg Carvedilol (Coreg) 6.25 mg PO BID [facility] Last Admin: 12/23/17 17:36 Dose: Not Given Clopidogrel Bisulfate (Plavix) 75 mg PO DAILY [facility] Last Admin: 12/23/17 10:17 Dose: 75 mg Donepezil HCl (Aricept) 10 mg PO HS [facility] Last Admin: 12/23/17 22:30 Dose: 10 mg Enoxaparin Sodium (Lovenox) 30 mg SC DAILY [facility] Last Admin: 12/23/17 10:17 Dose: 30 mg Furosemide (Lasix) 40 mg IVP DAILY [facility] Last Admin: 12/23/17 11:50 Dose: Not Given Insulin Human Regular (Novolin R) 0 unit SC [facility] PRN Reason: Protocol Last Admin: 12/23/17 22:26 Dose: Not Given Lorazepam (Ativan) 0.5 mg PO Q12 PRN PRN Reason: Anxiety Multivitamins (Hexavitamin) 1 tab PO DAILY [facility] Last Admin: 12/23/17 10:17 Dose: 1 tab Rosuvastatin Calcium (Crestor) 10 mg PO HS [facility] Last Admin: 12/23/17 22:52 Dose: 10 mg Sitagliptin Phosphate (Januvia) 25 mg PO DAILY [facility] Last Admin: 12/23/17 10:17 Dose: 25 mg - Labs Labs: 12/22/17 16:17 12/22/17 16:17 PT 13.5 SECONDS (9.7-12.2) H 12/22/17 16:17 INR 1.2 12/22/17 16:17 APTT 36 SECONDS (21-34) H 12/22/17 16:17 - Constitutional Appears: No Acute Distress - Head Exam Head Exam: ATRAUMATIC, NORMAL INSPECTION, NORMOCEPHALIC - Eye Exam Eye Exam: EOMI, Normal appearance, PERRL Pupil Exam: NORMAL ACCOMODATION, PERRL - Respiratory Exam Respiratory Exam: Clear to Ausculation Bilateral, NORMAL BREATHING PATTERN - Cardiovascular Exam Cardiovascular Exam: REGULAR RHYTHM, +S1, +S2. absent: Murmur - GI/Abdominal Exam GI & Abdominal Exam: Soft, Normal Bowel Sounds. absent: Tenderness - Rectal Exam Rectal Exam: Deferred Assessment and Plan (1) CHF (congestive heart failure) Status: Acute (2) Alzheimer disease Status: Acute (3) Dementia Status: Acute (4) Dilated cardiomyopathy Status: Acute (5) Diabetes mellitus type 2 in nonobese Status: Chronic (6) Hypertension Status: Chronic
[2017-12-24] MEDS: (Novolin R) Insulin Human Regular 100 units/ml vial SC SCH ×4 (07:51→22:39)
[2017-12-24 08:21] LABS: BASO # 0.1 K/uL (0.0-0.2); BASO % 0.7 % (0.0-2.0); EOS # 0.1 K/uL (0.0-0.7); EOS % 1.8 % (0.0-4.0); HEMOGLOBIN 9.3 g/dL (11.0-16.0); LYMPH # 1.5 K/uL (1.0-4.3); LYMPH % 18.9 % (20.0-40.0); MEAN CELL VOLUME 79.1 fL (81.0-99.0); MEAN CORPUSCULAR HGB CONC 32.9 g/dL (33.0-37.0); MEAN PLATELET VOLUME 8.6 fL (7.2-11.7); MONO # 0.8 K/uL (0.0-0.8); MONO % 10.4 % (0.0-10.0); NEUT # 5.6 K/uL (1.8-7.0); NEUT % 68.2 % (50.0-75.0); NRBC % 0.2 % (0.0-2.0); RBC 3.57 Mil/uL (3.80-5.20); RED CELL DISTRIBUTION WIDTH 17.1 % (11.5-14.5); WHITE BLOOD COUNT 8.1 K/uL (4.8-10.8)
[2017-12-24 08:24] LABS: BLOOD UREA NITROGEN 33 mg/dL (7-17); CALCIUM 8.6 mg/dl (8.6-10.4); GFR AFRICAN-AMERICAN > 60; GFR NON-AFRICAN AMERICAN > 60
--- NOTE | 2017-12-24 08:35 | CP.PCM.CON ---
History of Present Illness - History of Present Illness History of Present Illness: I was asked to see patient by Dr bass. I am covering for Dr Robledo. Patient is a 77 year old female with a history of CAD ( occluded LAD, nonviable anterior wall) [facility] cardiomyopathy s/p aAICD who presents with dyspnea. The patient states symptoms began a few days prior to admission. She denies chest elise or palpitiaotns. pro BNP was elevated Review of Systems - Constitutional Constitutional: absent: As Per HPI, Anorexia, Chills, Daytime Sleepiness, Excessive Sweating, Fatigue, Fever, Frequent Falls, Headache, Increased Appetite , Lethargy, Malaise, Night Sweats, Snoring, Sleep Apnea, Weight Gain, Weight Loss, Weakness, Other - EENT Eyes: absent: As Per HPI, Blind Spots, Blurred Vision, Change in Vision, Decreased Night Vision, Diplopia, Discharge, Dry Eye, Exophthalmos, Floaters, Irritation, Itchy Eyes, Loss of Peripheral Vision, Pain, Photophobia, Requires Corrective Lenses, Sees Flashes, Spots in Vision, Tunnel Vision, Other Visual Disturbances, Loss of Vision, Other Ears: absent: As Per HPI, Decreased Hearing, Ear Discharge, Ear Pain, Tinnitus, Abnormal Hearing, Disequilibrium, Dizziness, Other Nose/Mouth/Throat: absent: As Per HPI, Epistaxis, Nasal Congestion, Nasal Discharge, Nasal Obstruction, Nasal Trauma, Nose Pain, Post Nasal Drip, Sinus Pain, Sinus Pressure, Bleeding Gums, Change in Voice, Dental Pain, Dry Mouth, Dysphagia, Halitosis, Hoarsness, Lip Swelling, Mouth Lesions, Mouth Pain, Odynophagia, Sore Throat, Throat Swelling, Tongue Swelling, Facial Pain, Neck Pain, Neck Mass, Other - Cardiovascular Cardiovascular: Dyspnea - Respiratory Respiratory: Dyspnea on Exertion - Gastrointestinal Gastrointestinal: absent: As Per HPI, Abdominal Pain, Belching, Bloating, Change in Bowel Habits, Change in Stool Character, Coffee Ground Emesis, Constipation, Cramping, Diarrhea, Dyspepsia, Dysphagia, Early Satiety, Excessive Flatus, Fecal Incontinence, Heartburn, Hematemesis, Hematochezia, Loose Stools, Melena, Nausea, Odynophagia, Temesmus, Vomiting, Other - Genitourinary Genitourinary: absent: As Per HPI, Change in Urinary Stream, Difficulty Urinating, Dysuria, Flank Pain, Hematuria, Pyuria, Nocturia, Urinary Incontinence, Urinary Frequency, Urinary Hesitance, Urinary Urgency, Voiding Freq/Small Amts, Freq UTI, Hx Renal/Bladder Calculi, Hx /Renal Surgery, Bladder Distension, Other - Musculoskeletal Musculoskeletal: absent: As Per HPI, Abnormal Gait, Arthralgias, Atrophy, Back Pain, Deformity, Joint Swelling, Limited Range of Motion, Loss of Height, Muscle Cramps, Muscle Weakness, Myalgias, Neck Pain, Numbness, Radiating Pain into Limb, Stiffness, Tingling, Other - Integumentary Integumentary: absent: As Per HPI, Acne, Alopecia, Bleeding Lesions, Change in Hair, Change in Nails, Change in Pigmentation, Changing Lesions, Dry Skin, Erythema, Furuncle, Hirsutism, Lesions, New Lesions, Non-Healing Lesions, Photosensitivity, Pruritus, Rash, Skin Pain, Skin Ulcer, Sores, Striae, Swelling , Unusual Bruising, Wounds, Jaundice, Other - Neurological Neurological: absent: As Per HPI, Abnormal Gait, Abnormal Hearing, Abnormal Movements, Abnormal Speech, Behavioral Changes, Burning Sensations, Confusion, Convulsions, Disequilibrium, Dizziness, Numbness, Focal Weakness, Frequent Falls , Headaches, Lack of Coordination, Loss of Vision, Memory Loss, Paresthesias, Radicular Pain, Restless Legs, Sensory Deficit, Syncope, Tingling, Tremor, Vertigo, Weakness, Other Visual Disturbances, Other - Psychiatric Psychiatric: absent: As Per HPI, Abnormal Sleep Pattern, Anhedonia, Anxiety, Auditory Hallucinations, Behavioral Changes, Change in Appetite, Change in Libido, Confusion, Depression, Difficulty Concentrating, Hallucinations, Homicidal Ideation, Hopelessness, Irritability, Memory Loss, Mood Swings, Panic Attacks, Paranoia, Suicidal Ideation, Visual Hallucinations, Tactile Hallucinations, Other - Endocrine Endocrine: absent: As Per HPI, Change in Body Appearance, Change in Libido, Cold Intolorance, Deepening of Voice, Excessive Sweating, Fatigue, Flushing, Heat Intolorance, Increase in Ring/Shoe/Hat Size, Palpitations, Polydipsia, Polyphagia, Polyuria, Other - Hematologic/Lymphatic Hematologic: absent: As Per HPI, Easy Bleeding, Easy Bruising, Lymphadenopathy, Other Past Patient History - Infectious Disease Hx of Infectious Diseases: None - Past Medical History & Family History Past Medical History?: Yes - Past Social History Smoking Status: Never Smoked - CARDIAC Hx Hypercholesterolemia: Yes Hx Hypertension: Yes - PULMONARY Hx Chronic Obstructive Pulmonary Disease (COPD): Yes (PER FAMILY) - NEUROLOGICAL Hx Dementia: Yes (PER FAMILY) - HEENT Hx HEENT Problems: No - RENAL Hx Chronic Kidney Disease: No - ENDOCRINE/METABOLIC Hx Diabetes Mellitus Type 2: Yes - HEMATOLOGICAL/ONCOLOGICAL Hx Blood Disorders: Yes Hx Cancer: Yes (BREAST) Other/Comment: LEFT MASTECTOMY - INTEGUMENTARY Hx Dermatological Problems: No - MUSCULOSKELETAL/RHEUMATOLOGICAL Hx Falls: Yes - GASTROINTESTINAL Hx Gastrointestinal Disorders: No - GENITOURINARY/GYNECOLOGICAL Hx Genitourinary Disorders: No - PSYCHIATRIC Hx Substance Use: No - SURGICAL HISTORY Hx Surgeries: Yes Hx Section: Yes Hx Mastectomy: Yes (LEFT) Other/Comment: PACEMAKER. AICD - ANESTHESIA Hx Anesthesia: Yes Hx Anesthesia Reactions: No Meds Allergies/Adverse Reactions: Allergies Allergy/AdvReac Type Severity Reaction Status Date / Time No Known Allergies Allergy Verified 12/22/17 15:21 - Medications Medications: Current Medications Acetaminophen (Tylenol 325mg Tab) 650 mg PO Q6 PRN PRN Reason: Pain, moderate (4-7) Last Admin: 12/24/17 00:11 Dose: 650 mg Aspirin (Aspirin Chewable) 81 mg PO DAILY [facility] Last Admin: 12/23/17 10:17 Dose: 81 mg Carvedilol (Coreg) 6.25 mg PO BID [facility] Last Admin: 12/23/17 17:36 Dose: Not Given Clopidogrel Bisulfate (Plavix) 75 mg PO DAILY [facility] Last Admin: 12/23/17 10:17 Dose: 75 mg Donepezil HCl (Aricept) 10 mg PO HS [facility] Last Admin: 12/23/17 22:30 Dose: 10 mg Enoxaparin Sodium (Lovenox) 30 mg SC DAILY [facility] Last Admin: 12/23/17 10:17 Dose: 30 mg Furosemide (Lasix) 40 mg IVP DAILY [facility] Last Admin: 12/23/17 11:50 Dose: Not Given Insulin Human Regular (Novolin R) 0 unit SC [facility] PRN Reason: Protocol Last Admin: 12/24/17 07:51 Dose: Not Given Lorazepam (Ativan) 0.5 mg PO Q12 PRN PRN Reason: Anxiety Multivitamins (Hexavitamin) 1 tab PO DAILY [facility] Last Admin: 12/23/17 10:17 Dose: 1 tab Rosuvastatin Calcium (Crestor) 10 mg PO HS [facility] Last Admin: 12/23/17 22:52 Dose: 10 mg Sitagliptin Phosphate (Januvia) 25 mg PO DAILY [facility] Last Admin: 12/23/17 10:17 Dose: 25 mg Physical Exam - Constitutional Appears: Non-toxic - Head Exam Head Exam: NORMAL INSPECTION - Eye Exam Eye Exam: Normal appearance - ENT Exam ENT Exam: Mucous Membranes Moist - Neck Exam Neck exam: Positive for: Full Rom - Respiratory Exam Respiratory Exam: Decreased Breath Sounds - Cardiovascular Exam Cardiovascular Exam: REGULAR RHYTHM - GI/Abdominal Exam GI & Abdominal Exam: Normal Bowel Sounds - Rectal Exam Rectal Exam: Deferred - Extremities Exam Extremities exam: Positive for: pedal edema - Back Exam Back exam: NORMAL INSPECTION - Neurological Exam Neurological exam: Alert, Oriented x3 - Psychiatric Exam Psychiatric exam: Normal Affect - Skin Skin Exam: Normal Color Results - Vital Signs Recent Vital Signs: Last Vital Signs Temp 98 F 12/24/17 02:38 Pulse 80 12/24/17 02:38 Resp 18 12/24/17 02:38 BP 103/64 12/24/17 02:38 Pulse Ox 97 12/24/17 02:38 - Labs Result Diagrams: 12/24/17 08:05 12/24/17 08:05 Labs: Laboratory Results - last 24 hr 12/23/17 12/23/17 12/23/17 12:08 16:26 20:53 WBC RBC Hgb Hct MCV MCH MCHC RDW Plt Count MPV Neut % (Auto) Lymph % (Auto) [place] % (Auto) Eos % (Auto) Baso % (Auto) Neut # (Auto) Lymph # (Auto) [place] # (Auto) Eos # (Auto) Baso # (Auto) Sodium Potassium Chloride Carbon Dioxide Anion Gap BUN Creatinine Est GFR ( Amer) Est GFR (Non-Af Amer) POC Glucose (mg/dL) 114 H 192 H 176 H Random Glucose Calcium 12/24/17 12/24/17 12/24/17 06:10 08:05 08:05 WBC 8.1 RBC 3.57 L Hgb 9.3 L Hct 28.2 L MCV 79.1 L MCH 26.0 L MCHC 32.9 L RDW 17.1 H Plt Count 367 MPV 8.6 Neut % (Auto) 68.2 Lymph % (Auto) 18.9 L [place] % (Auto) 10.4 H Eos % (Auto) 1.8 Baso % (Auto) 0.7 Neut # (Auto) 5.6 Lymph # (Auto) 1.5 [place] # (Auto) 0.8 Eos # (Auto) 0.1 Baso # (Auto) 0.1 Sodium 135 Potassium 3.9 Chloride 90 L Carbon Dioxide 37 H Anion Gap 12 BUN 33 H Creatinine 0.7 Est GFR ( Amer) > 60 Est GFR (Non-Af Amer) > 60 POC Glucose (mg/dL) 132 H Random Glucose 90 Calcium 8.6 - EKG Data EKG Interpreted by: Myself Assessment & Plan (1) CHF (congestive heart failure) Assessment and Plan: will add Coreg. Patient has known systolic dysfunction. s/p AICD. Status: Acute (2) Dilated cardiomyopathy Assessment and Plan: no arrhythmia on telemetry Status: Acute
--- NOTE | 2017-12-24 08:53 | RAD ---
PROCEDURE: Right Knee Radiographs. HISTORY: fall, knee pain COMPARISON: None. FINDINGS: BONES: No acute fracture or destructive bony lesion identified. JOINTS: Gross joint space narrowing at all 3 joint compartments is appreciated along with cortical sclerosis and marginal osteophyte development compatible osteoarthritis. Marked chronic irregular margins are seen at the lateral femorotibial compartment as well. Surrounding soft tissue edema is appreciated at the right knee JOINT EFFUSION: A limited suprapatellar bursa effusion. OTHER FINDINGS: None. IMPRESSION: End-stage osteoarthritis right knee no acute fracture or dislocation.
[2017-12-24] MEDS: Multiple Vitamins Tab PO SCH (09:26)
[2017-12-24] MEDS: Enoxaparin 30 mg Syringe SC SCH (09:26)
--- NOTE | 2017-12-24 12:38 | CP.PCM.PN ---
Subjective - Date & Time of Evaluation Date of Evaluation: 12/24/17 Time of Evaluation: 12:21 - Subjective Subjective: Pulmonary Follow up Covering Dr. Nolan The patient was Seen and examined by me at the bedside, Medical records reviewed and Management issues were discussed and formulated with the house staff. Events reviewed 77 year old female with PMHx of HTN, DM, CHF, and HTN presented to ED due to worsening leg edema, Shortness of breath, and dyspnea on exertion. Patient was recently hospitalized from 10/21-11/07 for CHF exacerbation. Patient lying in bed comfortably. Pt Alert, follows some commands less dyspnea, No chest pain. Afebrile, NSR on the monitor Objective - Vital Signs/Intake and Output Vital Signs (last 24 hours): Temp Pulse Resp BP Pulse Ox 97.9 F 74 20 102/74 96 12/24/17 08:58 12/24/17 08:58 12/24/17 08:58 12/24/17 09:27 12/24/17 08:58 Intake and Output: 12/24/17 12/24/17 06:59 18:59 Intake Total 150 Balance 150 - Medications Medications: Current Medications Acetaminophen (Tylenol 325mg Tab) 650 mg PO Q6 PRN PRN Reason: Pain, moderate (4-7) Last Admin: 12/24/17 00:11 Dose: 650 mg Aspirin (Aspirin Chewable) 81 mg PO DAILY [facility] Last Admin: 12/24/17 09:26 Dose: 81 mg Carvedilol (Coreg) 6.25 mg PO BID [facility] Last Admin: 12/24/17 09:26 Dose: 6.25 mg Clopidogrel Bisulfate (Plavix) 75 mg PO DAILY [facility] Last Admin: 12/24/17 09:26 Dose: 75 mg Donepezil HCl (Aricept) 10 mg PO HS [facility] Last Admin: 12/23/17 22:30 Dose: 10 mg Enoxaparin Sodium (Lovenox) 30 mg SC DAILY [facility] Last Admin: 12/24/17 09:26 Dose: 30 mg Furosemide (Lasix) 40 mg IVP DAILY [facility] Last Admin: 12/24/17 09:27 Dose: 40 mg Insulin Human Regular (Novolin R) 0 unit SC [facility] PRN Reason: Protocol Last Admin: 12/24/17 12:20 Dose: Not Given Lorazepam (Ativan) 0.5 mg PO Q12 PRN PRN Reason: Anxiety Multivitamins (Hexavitamin) 1 tab PO DAILY [facility] Last Admin: 12/24/17 09:26 Dose: 1 tab Rosuvastatin Calcium (Crestor) 10 mg PO HS [facility] Last Admin: 12/23/17 22:52 Dose: 10 mg Sitagliptin Phosphate (Januvia) 25 mg PO DAILY [facility] Last Admin: 12/24/17 09:26 Dose: 25 mg - Labs Labs: 12/24/17 08:05 12/24/17 08:05 PT 13.5 SECONDS (9.7-12.2) H 12/22/17 16:17 INR 1.2 12/22/17 16:17 APTT 36 SECONDS (21-34) H 12/22/17 16:17 - Constitutional Appears: Well, Non-toxic - Head Exam Head Exam: ATRAUMATIC, NORMAL INSPECTION - Eye Exam Eye Exam: EOMI. absent: Conjunctival injection - Neck Exam Neck Exam: Full ROM, Normal Inspection. absent: Tenderness, Thyromegaly - Respiratory Exam Respiratory Exam: Clear to Ausculation Bilateral. absent: Accessory Muscle Use , Chest Wall Tenderness, Decreased Breath Sounds, Prolonged Expiratory Phase, Rales, Rhonchi, Wheezes - Cardiovascular Exam Cardiovascular Exam: REGULAR RHYTHM, RRR, +S1, +S2. absent: JVD - GI/Abdominal Exam GI & Abdominal Exam: Soft, Normal Bowel Sounds - Extremities Exam Extremities Exam: Full ROM, Normal Capillary Refill, Normal Inspection. absent : Pedal Edema - Neurological Exam Neurological Exam: Alert, Awake Assessment and Plan (1) Pleural effusion Status: Acute (2) CHF (congestive heart failure) Status: Acute (3) Alzheimer disease Status: Acute (4) CHF exacerbation Status: Acute (5) Dilated cardiomyopathy Status: Acute - Assessment and Plan (Free Text) Assessment: Assessment/Plan: 1. Pleural Effusion secondary to CHF - CXR 12/22: Moderate bilateral pleural effusions. Dense linear consolidative changes in right midd lung zone. - WBC 12/22: 6.9 - diuretics as tolerated - Albuterol/Ipratropium INH RQ4 2. CHF ejection fraction 15-20% - Continue Lasix to optimize fluid status - Strict I&O, daily Wt - Negative fluid balance - Management per Cardiology Recommendations
[2017-12-24] MEDS ORDERED: Digoxin 250 mcg (0.25 mg) Tab PO STA (13:43)
[2017-12-25] MEDS: (Novolin R) Insulin Human Regular 100 units/ml vial SC SCH ×4 (07:18→21:44)
--- NOTE | 2017-12-25 07:41 | CP.PCM.PN ---
Subjective - Date & Time of Evaluation Date of Evaluation: 12/24/17 Time of Evaluation: 19:00 - Subjective Subjective: Pt seen and examined at bedside, iss diuresing, decreased nausea, vomitting, less short of breath, less cough,no fevr Objective - Vital Signs/Intake and Output Vital Signs (last 24 hours): Temp Pulse Resp BP Pulse Ox 97.4 F L 71 20 108/66 98 12/25/17 07:12 12/25/17 07:12 12/25/17 07:12 12/25/17 07:12 12/25/17 07:12 Intake and Output: 12/25/17 12/25/17 06:59 18:59 Intake Total 240 Balance 240 - Medications Medications: Current Medications Acetaminophen (Tylenol 325mg Tab) 650 mg PO Q6 PRN PRN Reason: Pain, moderate (4-7) Last Admin: 12/24/17 00:11 Dose: 650 mg Aspirin (Aspirin Chewable) 81 mg PO DAILY [facility] Last Admin: 12/24/17 09:26 Dose: 81 mg Carvedilol (Coreg) 6.25 mg PO BID [facility] Last Admin: 12/24/17 18:39 Dose: Not Given Clopidogrel Bisulfate (Plavix) 75 mg PO DAILY [facility] Last Admin: 12/24/17 09:26 Dose: 75 mg Digoxin (Digoxin) 0.125 mg PO DAILY@1800 [facility] Donepezil HCl (Aricept) 10 mg PO HS [facility] Last Admin: 12/24/17 22:39 Dose: 10 mg Enalapril Maleate (Vasotec) 2.5 mg PO DAILY [facility] Last Admin: 12/24/17 14:15 Dose: 2.5 mg Enoxaparin Sodium (Lovenox) 30 mg SC DAILY [facility] Last Admin: 12/24/17 09:26 Dose: 30 mg Furosemide (Lasix) 40 mg IVP DAILY [facility] Last Admin: 12/24/17 09:27 Dose: 40 mg Insulin Human Regular (Novolin R) [address] [facility] PRN Reason: Protocol Last Admin: 12/25/17 07:18 Dose: Not Given Lorazepam (Ativan) 0.5 mg PO Q12 PRN PRN Reason: Anxiety Multivitamins (Hexavitamin) 1 tab PO DAILY [facility] Last Admin: 12/24/17 09:26 Dose: 1 tab Rosuvastatin Calcium (Crestor) 10 mg PO [facility] Last Admin: 12/24/17 22:39 Dose: 10 mg Sitagliptin Phosphate (Januvia) 25 mg PO DAILY [facility] Last Admin: 12/24/17 09:26 Dose: 25 mg Spironolactone (Aldactone) 25 mg PO DAILY [facility] Last Admin: 12/24/17 14:15 Dose: 25 mg - Labs Labs: 12/24/17 08:05 12/24/17 08:05 PT 13.5 SECONDS (9.7-12.2) H 12/22/17 16:17 INR 1.2 12/22/17 16:17 APTT 36 SECONDS (21-34) H 12/22/17 16:17 - Constitutional Appears: No Acute Distress - Head Exam Head Exam: ATRAUMATIC, NORMAL INSPECTION, NORMOCEPHALIC - Eye Exam Eye Exam: EOMI, Normal appearance, PERRL Pupil Exam: NORMAL ACCOMODATION, PERRL - ENT Exam ENT Exam: Mucous Membranes Moist, Normal Exam - Respiratory Exam Respiratory Exam: Decreased Breath Sounds, Rhonchi - Cardiovascular Exam Cardiovascular Exam: REGULAR RHYTHM, +S1, +S2. absent: Murmur - GI/Abdominal Exam GI & Abdominal Exam: Soft, Normal Bowel Sounds. absent: Tenderness - Rectal Exam Rectal Exam: Deferred Assessment and Plan (1) CHF (congestive heart failure) Assessment & Plan: diuresis, intake out put Status: Acute (2) Alzheimer disease Status: Acute (3) Dementia Status: Acute (4) Dilated cardiomyopathy Status: Acute (5) Diabetes mellitus type 2 in nonobese Status: Chronic (6) Hypertension Status: Chronic
--- NOTE | 2017-12-25 07:41 | CP.PCM.PN ---
Subjective - Date & Time of Evaluation Date of Evaluation: 12/25/17 Time of Evaluation: 20:00 - Subjective Subjective: Pt seen and examined at bedside Objective - Vital Signs/Intake and Output Vital Signs (last 24 hours): Temp Pulse Resp BP Pulse Ox 97.4 F L 71 20 108/66 98 12/25/17 07:12 12/25/17 07:12 12/25/17 07:12 12/25/17 07:12 12/25/17 07:12 Intake and Output: 12/25/17 12/25/17 06:59 18:59 Intake Total 240 Balance 240 - Medications Medications: Current Medications Acetaminophen (Tylenol 325mg Tab) 650 mg PO Q6 PRN PRN Reason: Pain, moderate (4-7) Last Admin: 12/24/17 00:11 Dose: 650 mg Aspirin (Aspirin Chewable) 81 mg PO DAILY [facility] Last Admin: 12/24/17 09:26 Dose: 81 mg Carvedilol (Coreg) 6.25 mg PO BID [facility] Last Admin: 12/24/17 18:39 Dose: Not Given Clopidogrel Bisulfate (Plavix) 75 mg PO DAILY [facility] Last Admin: 12/24/17 09:26 Dose: 75 mg Digoxin (Digoxin) 0.125 mg PO DAILY@1800 [facility] Donepezil HCl (Aricept) 10 mg PO HS [facility] Last Admin: 12/24/17 22:39 Dose: 10 mg Enalapril Maleate (Vasotec) 2.5 mg PO DAILY [facility] Last Admin: 12/24/17 14:15 Dose: 2.5 mg Enoxaparin Sodium (Lovenox) 30 mg SC DAILY [facility] Last Admin: 12/24/17 09:26 Dose: 30 mg Furosemide (Lasix) 40 mg IVP DAILY [facility] Last Admin: 12/24/17 09:27 Dose: 40 mg Insulin Human Regular (Novolin R) 0 unit SC [facility] PRN Reason: Protocol Last Admin: 12/25/17 07:18 Dose: Not Given Lorazepam (Ativan) 0.5 mg PO Q12 PRN PRN Reason: Anxiety Multivitamins (Hexavitamin) 1 tab PO DAILY [facility] Last Admin: 12/24/17 09:26 Dose: 1 tab Rosuvastatin Calcium (Crestor) 10 mg PO HS [facility] Last Admin: 12/24/17 22:39 Dose: 10 mg Sitagliptin Phosphate (Januvia) 25 mg PO DAILY [facility] Last Admin: 12/24/17 09:26 Dose: 25 mg Spironolactone (Aldactone) 25 mg PO DAILY [facility] Last Admin: 12/24/17 14:15 Dose: 25 mg - Labs Labs: 12/24/17 08:05 12/24/17 08:05 PT 13.5 SECONDS (9.7-12.2) H 12/22/17 16:17 INR 1.2 12/22/17 16:17 APTT 36 SECONDS (21-34) H 12/22/17 16:17 Assessment and Plan (1) CHF (congestive heart failure) Status: Acute (2) Alzheimer disease Status: Acute (3) Dementia Status: Acute (4) Dilated cardiomyopathy Status: Acute (5) Diabetes mellitus type 2 in nonobese Status: Chronic (6) Hypertension Status: Chronic
[2017-12-25] MEDS: Multiple Vitamins Tab PO SCH (09:11)
[2017-12-25] MEDS: Enoxaparin 30 mg Syringe SC SCH (09:12)
[2017-12-25] MEDS: Digoxin 125 mcg (0.125 mg) Tab PO SCH (18:21)
--- NOTE | 2017-12-25 21:43 | CP.PCM.PN ---
Subjective - Date & Time of Evaluation Date of Evaluation: 12/25/17 Time of Evaluation: 21:40 - Subjective Subjective: Pulmonary Follow up Covering Dr. Nolan The patient was Seen and examined by me at the bedside, Medical records reviewed and Management issues were discussed and formulated with the house staff. Events reviewed 77 year old female with PMHx of HTN, DM, CHF, and HTN presented to ED due to worsening leg edema, Shortness of breath, and dyspnea on exertion. Patient was recently hospitalized from 10/21-11/07 for CHF exacerbation. Patient lying in bed comfortably. Pt Alert, follows some commands less dyspnea, No chest pain. Afebrile, NSR on the monitor Objective - Vital Signs/Intake and Output Vital Signs (last 24 hours): Temp Pulse Resp BP Pulse Ox 97.4 F L 68 20 95/61 L 100 12/25/17 15:00 12/25/17 15:00 12/25/17 15:00 12/25/17 15:00 12/25/17 15:00 - Medications Medications: Current Medications Acetaminophen (Tylenol 325mg Tab) 650 mg PO Q6 PRN PRN Reason: Pain, moderate (4-7) Last Admin: 12/24/17 00:11 Dose: 650 mg Aspirin (Aspirin Chewable) 81 mg PO DAILY [facility] Last Admin: 12/25/17 09:11 Dose: 81 mg Carvedilol (Coreg) 6.25 mg PO BID [facility] Last Admin: 12/25/17 18:14 Dose: Not Given Clopidogrel Bisulfate (Plavix) 75 mg PO DAILY [facility] Last Admin: 12/25/17 09:11 Dose: 75 mg Digoxin (Digoxin) 0.125 mg PO DAILY@1800 [facility] Last Admin: 12/25/17 18:21 Dose: 0.125 mg Donepezil HCl (Aricept) 10 mg PO HS [facility] Last Admin: 12/24/17 22:39 Dose: 10 mg Enalapril Maleate (Vasotec) 2.5 mg PO DAILY [facility] Last Admin: 12/25/17 15:10 Dose: Not Given Enoxaparin Sodium (Lovenox) 30 mg SC DAILY [facility] Last Admin: 12/25/17 09:12 Dose: 30 mg Furosemide (Lasix) 40 mg IVP DAILY [facility] Last Admin: 12/25/17 09:12 Dose: 40 mg Insulin Human Regular (Novolin R) 0 unit SC ACHS [facility] PRN Reason: Protocol Last Admin: 12/25/17 18:08 Dose: Not Given Lorazepam (Ativan) 0.5 mg PO Q12 PRN PRN Reason: Anxiety Multivitamins (Hexavitamin) 1 tab PO DAILY [facility] Last Admin: 12/25/17 09:11 Dose: 1 tab Rosuvastatin Calcium (Crestor) 10 mg PO HS [facility] Last Admin: 12/24/17 22:39 Dose: 10 mg Sitagliptin Phosphate (Januvia) 25 mg PO DAILY [facility] Last Admin: 12/25/17 09:11 Dose: 25 mg Spironolactone (Aldactone) 25 mg PO DAILY [facility] Last Admin: 12/25/17 09:11 Dose: 25 mg - Labs Labs: 12/24/17 08:05 12/24/17 08:05 PT 13.5 SECONDS (9.7-12.2) H 12/22/17 16:17 INR 1.2 12/22/17 16:17 APTT 36 SECONDS (21-34) H 12/22/17 16:17 - Constitutional Appears: Well, Non-toxic, No Acute Distress - Head Exam Head Exam: ATRAUMATIC, NORMAL INSPECTION - Eye Exam Eye Exam: EOMI, Normal appearance. absent: Conjunctival injection Pupil Exam: NORMAL ACCOMODATION, PERRL - Neck Exam Neck Exam: Full ROM, Normal Inspection. absent: Lymphadenopathy, Meningismus, Tenderness, Thyromegaly - Respiratory Exam Respiratory Exam: Decreased Breath Sounds. absent: Accessory Muscle Use, Chest Wall Tenderness, Prolonged Expiratory Phase, Rales, Rhonchi, Wheezes - Cardiovascular Exam Cardiovascular Exam: REGULAR RHYTHM, RRR, +S1, +S2. absent: JVD - GI/Abdominal Exam GI & Abdominal Exam: Soft, Normal Bowel Sounds. absent: Distended, Firm, Guarding, Rigid - Extremities Exam Extremities Exam: Full ROM, Normal Capillary Refill, Normal Inspection. absent : Calf Tenderness, Joint Swelling, Pedal Edema, Tenderness - Back Exam Back Exam: absent: CVA tenderness (L), CVA tenderness (R) - Neurological Exam Neurological Exam: Alert, Awake, CN II-XII Intact, Motor Sensory Deficit, Normal Gait, Oriented x3 Assessment and Plan (1) Pleural effusion Status: Acute (2) CHF (congestive heart failure) Status: Acute (3) Alzheimer disease Status: Acute (4) CHF exacerbation Status: Acute (5) Dilated cardiomyopathy Status: Acute - Assessment and Plan (Free Text) Assessment: Assessment/Plan: 1. Pleural Effusion secondary to CHF - CXR 12/22: Moderate bilateral pleural effusions. Dense linear consolidative changes in right midd lung zone. - WBC 12/22: 6.9 - diuretics as tolerated, Lasix 40 mg IVP DAILY - Strict I&O - Albuterol/Ipratropium INH RQ4 2. CHF ejection fraction 15-20% - Continue Lasix to optimize fluid status - Strict I&O, daily Wt - Negative fluid balance
--- NOTE | 2017-12-25 23:38 | CP.PCM.PN ---
Subjective - Date & Time of Evaluation Date of Evaluation: 12/25/17 Time of Evaluation: 13:10 - Subjective Subjective: Patient seen and evaluated Feels better Improved breathing Review of Systems - Constitutional Constitutional: absent: As Per HPI, Anorexia, Chills, Daytime Sleepiness, Excessive Sweating, Fatigue, Fever, Frequent Falls, Headache, Increased Appetite , Lethargy, Malaise, Night Sweats, Snoring, Sleep Apnea, Weight Gain, Weight Loss, Weakness, Other - EENT Eyes: absent: As Per HPI, Blind Spots, Blurred Vision, Change in Vision, Decreased Night Vision, Diplopia, Discharge, Dry Eye, Exophthalmos, Floaters, Irritation, Itchy Eyes, Loss of Peripheral Vision, Pain, Photophobia, Requires Corrective Lenses, Sees Flashes, Spots in Vision, Tunnel Vision, Other Visual Disturbances, Loss of Vision, Other Ears: absent: As Per HPI, Decreased Hearing, Ear Discharge, Ear Pain, Tinnitus, Abnormal Hearing, Disequilibrium, Dizziness, Other Nose/Mouth/Throat: absent: As Per HPI, Epistaxis, Nasal Congestion, Nasal Discharge, Nasal Obstruction, Nasal Trauma, Nose Pain, Post Nasal Drip, Sinus Pain, Sinus Pressure, Bleeding Gums, Change in Voice, Dental Pain, Dry Mouth, Dysphagia, Halitosis, Hoarsness, Lip Swelling, Mouth Lesions, Mouth Pain, Odynophagia, Sore Throat, Throat Swelling, Tongue Swelling, Facial Pain, Neck Pain, Neck Mass, Other - Cardiovascular Cardiovascular: Dyspnea - Respiratory Respiratory: Dyspnea on Exertion - Gastrointestinal Gastrointestinal: absent: As Per HPI, Abdominal Pain, Belching, Bloating, Change in Bowel Habits, Change in Stool Character, Coffee Ground Emesis, Constipation, Cramping, Diarrhea, Dyspepsia, Dysphagia, Early Satiety, Excessive Flatus, Fecal Incontinence, Heartburn, Hematemesis, Hematochezia, Loose Stools, Melena, Nausea, Odynophagia, Temesmus, Vomiting, Other - Genitourinary Genitourinary: absent: As Per HPI, Change in Urinary Stream, Difficulty Urinating, Dysuria, Flank Pain, Hematuria, Pyuria, Nocturia, Urinary Incontinence, Urinary Frequency, Urinary Hesitance, Urinary Urgency, Voiding Freq/Small Amts, Freq UTI, Hx Renal/Bladder Calculi, Hx /Renal Surgery, Bladder Distension, Other - Musculoskeletal Musculoskeletal: absent: As Per HPI, Abnormal Gait, Arthralgias, Atrophy, Back Pain, Deformity, Joint Swelling, Limited Range of Motion, Loss of Height, Muscle Cramps, Muscle Weakness, Myalgias, Neck Pain, Numbness, Radiating Pain into Limb, Stiffness, Tingling, Other - Integumentary Integumentary: absent: As Per HPI, Acne, Alopecia, Bleeding Lesions, Change in Hair, Change in Nails, Change in Pigmentation, Changing Lesions, Dry Skin, Erythema, Furuncle, Hirsutism, Lesions, New Lesions, Non-Healing Lesions, Photosensitivity, Pruritus, Rash, Skin Pain, Skin Ulcer, Sores, Striae, Swelling , Unusual Bruising, Wounds, Jaundice, Other - Neurological Neurological: absent: As Per HPI, Abnormal Gait, Abnormal Hearing, Abnormal Movements, Abnormal Speech, Behavioral Changes, Burning Sensations, Confusion, Convulsions, Disequilibrium, Dizziness, Numbness, Focal Weakness, Frequent Falls , Headaches, Lack of Coordination, Loss of Vision, Memory Loss, Paresthesias, Radicular Pain, Restless Legs, Sensory Deficit, Syncope, Tingling, Tremor, Vertigo, Weakness, Other Visual Disturbances, Other - Psychiatric Psychiatric: absent: As Per HPI, Abnormal Sleep Pattern, Anhedonia, Anxiety, Auditory Hallucinations, Behavioral Changes, Change in Appetite, Change in Libido, Confusion, Depression, Difficulty Concentrating, Hallucinations, Homicidal Ideation, Hopelessness, Irritability, Memory Loss, Mood Swings, Panic Attacks, Paranoia, Suicidal Ideation, Visual Hallucinations, Tactile Hallucinations, Other - Endocrine Endocrine: absent: As Per HPI, Change in Body Appearance, Change in Libido, Cold Intolorance, Deepening of Voice, Excessive Sweating, Fatigue, Flushing, Heat Intolorance, Increase in Ring/Shoe/Hat Size, Palpitations, Polydipsia, Polyphagia, Polyuria, Other - Hematologic/Lymphatic Hematologic: absent: As Per HPI, Easy Bleeding, Easy Bruising, Lymphadenopathy, Other Physical Exam - Constitutional Appears: Non-toxic - Head Exam Head Exam: NORMAL INSPECTION - Eye Exam Eye Exam: Normal appearance - ENT Exam ENT Exam: Mucous Membranes Moist - Neck Exam Neck exam: Positive for: Full Rom - Respiratory Exam Respiratory Exam: Decreased Breath Sounds - Cardiovascular Exam Cardiovascular Exam: REGULAR RHYTHM - GI/Abdominal Exam GI & Abdominal Exam: Normal Bowel Sounds - Rectal Exam Rectal Exam: Deferred - Extremities Exam Extremities exam: Positive for: pedal edema - Back Exam Back exam: NORMAL INSPECTION - Neurological Exam Neurological exam: Alert, Oriented x3 - Psychiatric Exam Psychiatric exam: Normal Affect - Skin Skin Exam: Normal Color Objective - Vital Signs/Intake and Output Vital Signs (last 24 hours): Temp Pulse Resp BP Pulse Ox 97.4 F L 68 20 95/61 L 100 12/25/17 15:00 12/25/17 15:00 12/25/17 15:00 12/25/17 15:00 12/25/17 15:00 - Medications Medications: Current Medications Acetaminophen (Tylenol 325mg Tab) 650 mg PO Q6 PRN PRN Reason: Pain, moderate (4-7) Last Admin: 12/24/17 00:11 Dose: 650 mg Aspirin (Aspirin Chewable) 81 mg PO DAILY [facility] Last Admin: 12/25/17 09:11 Dose: 81 mg Carvedilol (Coreg) 6.25 mg PO BID [facility] Last Admin: 12/25/17 18:14 Dose: Not Given Clopidogrel Bisulfate (Plavix) 75 mg PO DAILY [facility] Last Admin: 12/25/17 09:11 Dose: 75 mg Digoxin (Digoxin) 0.125 mg PO DAILY@1800 [facility] Last Admin: 12/25/17 18:21 Dose: 0.125 mg Donepezil HCl (Aricept) 10 mg PO [facility] Last Admin: 12/25/17 21:58 Dose: 10 mg Enalapril Maleate (Vasotec) 2.5 mg PO DAILY [facility] Last Admin: 12/25/17 15:10 Dose: Not Given Enoxaparin Sodium (Lovenox) 30 mg SC DAILY [facility] Last Admin: 12/25/17 09:12 Dose: 30 mg Furosemide (Lasix) 40 mg IVP DAILY [facility] Last Admin: 12/25/17 09:12 Dose: 40 mg Insulin Human Regular (Novolin R) 0 unit SC [facility] PRN Reason: Protocol Last Admin: 12/25/17 21:44 Dose: Not Given Lorazepam (Ativan) 0.5 mg PO Q12 PRN PRN Reason: Anxiety Multivitamins (Hexavitamin) 1 tab PO DAILY [facility] Last Admin: 12/25/17 09:11 Dose: 1 tab Rosuvastatin Calcium (Crestor) 10 mg PO [facility] Last Admin: 12/25/17 21:58 Dose: 10 mg Sitagliptin Phosphate (Januvia) 25 mg PO DAILY [facility] Last Admin: 12/25/17 09:11 Dose: 25 mg Spironolactone (Aldactone) 25 mg PO DAILY [facility] Last Admin: 12/25/17 09:11 Dose: 25 mg - Labs Labs: 12/24/17 08:05 12/24/17 08:05 PT 13.5 SECONDS (9.7-12.2) H 12/22/17 16:17 INR 1.2 12/22/17 16:17 APTT 36 SECONDS (21-34) H 12/22/17 16:17 Assessment and Plan - Assessment and Plan (Free Text) Assessment: (1) CHF (congestive heart failure) Assessment and Plan: Patient has known systolic dysfunction. s/p AICD. Status: Acute (2) Dilated cardiomyopathy Assessment and Plan: no arrhythmia on telemetry Status: Acute
[2017-12-26] MEDS: (Novolin R) Insulin Human Regular 100 units/ml vial SC SCH ×5 (08:41→21:59)
[2017-12-26] MEDS: Multiple Vitamins Tab PO SCH (10:01)
[2017-12-26] MEDS: Enoxaparin 30 mg Syringe SC SCH (10:02)
[2017-12-26 11:30] LABS: HEMOGLOBIN 10.1 g/dL (11.0-16.0); MEAN CELL VOLUME 80.8 fL (81.0-99.0); MEAN CORPUSCULAR HEMOGLOBIN 25.6 pg (27.0-31.0); MEAN CORPUSCULAR HGB CONC 31.6 g/dL (33.0-37.0); MEAN PLATELET VOLUME 8.7 fL (7.2-11.7); RBC 3.96 Mil/uL (3.80-5.20); RED CELL DISTRIBUTION WIDTH 17.4 % (11.5-14.5); WHITE BLOOD COUNT 8.9 K/uL (4.8-10.8)
[2017-12-26 12:00] LABS: BLOOD UREA NITROGEN 28 mg/dL (7-17); CALCIUM 8.8 mg/dl (8.6-10.4); GFR AFRICAN-AMERICAN > 60; GFR NON-AFRICAN AMERICAN > 60
--- NOTE | 2017-12-26 12:16 | CP.PCM.PN ---
Subjective - Date & Time of Evaluation Date of Evaluation: 12/26/17 Time of Evaluation: 08:50 - Subjective Subjective: the patient seen and examined Patient states breathing is much better Afebrile No chest pain Objective - Vital Signs/Intake and Output Vital Signs (last 24 hours): Temp Pulse Resp BP Pulse Ox 98 F 71 20 105/54 L 98 12/26/17 09:03 12/26/17 09:03 12/26/17 09:03 12/26/17 10:02 12/26/17 09:03 Intake and Output: 12/26/17 12/26/17 06:59 18:59 Intake Total 0 Balance 0 - Medications Medications: Current Medications Acetaminophen (Tylenol 325mg Tab) 650 mg PO Q6 PRN PRN Reason: Pain, moderate (4-7) Last Admin: 12/24/17 00:11 Dose: 650 mg Aspirin (Aspirin Chewable) 81 mg PO DAILY [facility] Last Admin: 12/26/17 10:01 Dose: 81 mg Carvedilol (Coreg) 6.25 mg PO BID [facility] Last Admin: 12/26/17 10:02 Dose: 6.25 mg Clopidogrel Bisulfate (Plavix) 75 mg PO DAILY [facility] Last Admin: 12/26/17 10:02 Dose: 75 mg Digoxin (Digoxin) 0.125 mg PO DAILY@1800 [facility] Last Admin: 12/25/17 18:21 Dose: 0.125 mg Donepezil HCl (Aricept) 10 mg PO HS [facility] Last Admin: 12/25/17 21:58 Dose: 10 mg Enalapril Maleate (Vasotec) 2.5 mg PO DAILY [facility] Last Admin: 12/26/17 10:02 Dose: 2.5 mg Enoxaparin Sodium (Lovenox) 30 mg SC DAILY [facility] Last Admin: 12/26/17 10:02 Dose: 30 mg Furosemide (Lasix) 40 mg IVP DAILY [facility] Last Admin: 12/26/17 10:02 Dose: 40 mg Insulin Human Regular (Novolin R) [address] [facility] PRN Reason: Protocol Last Admin: 12/26/17 08:41 Dose: Not Given Lorazepam (Ativan) 0.5 mg PO Q12 PRN PRN Reason: Anxiety Multivitamins (Hexavitamin) 1 tab PO DAILY [facility] Last Admin: 12/26/17 10:01 Dose: 1 tab Rosuvastatin Calcium (Crestor) 10 mg PO HS [facility] Last Admin: 12/25/17 21:58 Dose: 10 mg Sitagliptin Phosphate (Januvia) 25 mg PO DAILY [facility] Last Admin: 12/26/17 10:02 Dose: 25 mg Spironolactone (Aldactone) 25 mg PO DAILY [facility] Last Admin: 12/26/17 10:01 Dose: 25 mg - Labs Labs: 12/26/17 11:22 12/26/17 11:22 PT 13.5 SECONDS (9.7-12.2) H 12/22/17 16:17 INR 1.2 12/22/17 16:17 APTT 36 SECONDS (21-34) H 12/22/17 16:17
--- NOTE | 2017-12-26 16:25 | CP.PCM.PN ---
Subjective - Date & Time of Evaluation Date of Evaluation: 12/26/17 Time of Evaluation: 08:15 - Subjective Subjective: Patient seen and evaluated Denies chest pain and dyspnea Chronic systolic CHF HTN CAD s/p AICD medical management Objective - Vital Signs/Intake and Output Vital Signs (last 24 hours): Temp Pulse Resp BP Pulse Ox 98 F 62 20 105/54 L 98 12/26/17 09:03 12/26/17 12:55 12/26/17 09:03 12/26/17 10:02 12/26/17 09:03 Intake and Output: 12/26/17 12/26/17 06:59 18:59 Intake Total 0 480 Output Total 300 Balance 0 180 - Medications Medications: Current Medications Acetaminophen (Tylenol 325mg Tab) 650 mg PO Q6 PRN PRN Reason: Pain, moderate (4-7) Last Admin: 12/24/17 00:11 Dose: 650 mg Aspirin (Aspirin Chewable) 81 mg PO DAILY [facility] Last Admin: 12/26/17 10:01 Dose: 81 mg Carvedilol (Coreg) 6.25 mg PO BID [facility] Last Admin: 12/26/17 10:02 Dose: 6.25 mg Clopidogrel Bisulfate (Plavix) 75 mg PO DAILY [facility] Last Admin: 12/26/17 10:02 Dose: 75 mg Digoxin (Digoxin) 0.125 mg PO DAILY@1800 [facility] Last Admin: 12/25/17 18:21 Dose: 0.125 mg Donepezil HCl (Aricept) 10 mg PO HS [facility] Last Admin: 12/25/17 21:58 Dose: 10 mg Enalapril Maleate (Vasotec) 2.5 mg PO DAILY [facility] Last Admin: 12/26/17 10:02 Dose: 2.5 mg Enoxaparin Sodium (Lovenox) 30 mg SC DAILY [facility] Last Admin: 12/26/17 10:02 Dose: 30 mg Furosemide (Lasix) 40 mg IVP DAILY [facility] Last Admin: 12/26/17 10:02 Dose: 40 mg Insulin Human Regular (Novolin R) 0 unit SC ACHS [facility] PRN Reason: Protocol Last Admin: 12/26/17 12:29 Dose: Not Given Lorazepam (Ativan) 0.5 mg PO Q12 PRN PRN Reason: Anxiety Multivitamins (Hexavitamin) 1 tab PO DAILY [facility] Last Admin: 12/26/17 10:01 Dose: 1 tab Rosuvastatin Calcium (Crestor) 10 mg PO HS [facility] Last Admin: 12/25/17 21:58 Dose: 10 mg Sitagliptin Phosphate (Januvia) 25 mg PO DAILY [facility] Last Admin: 12/26/17 10:02 Dose: 25 mg Spironolactone (Aldactone) 25 mg PO DAILY [facility] Last Admin: 12/26/17 10:01 Dose: 25 mg - Labs Labs: 12/26/17 11:22 12/26/17 11:22 PT 13.5 SECONDS (9.7-12.2) H 12/22/17 16:17 INR 1.2 12/22/17 16:17 APTT 36 SECONDS (21-34) H 12/22/17 16:17
[2017-12-26] MEDS: Digoxin 125 mcg (0.125 mg) Tab PO SCH (17:42)
--- NOTE | 2017-12-26 22:22 | CP.PCM.PN ---
Subjective - Date & Time of Evaluation Date of Evaluation: 12/26/17 Time of Evaluation: 18:00 Objective - Vital Signs/Intake and Output Vital Signs (last 24 hours): Temp Pulse Resp BP Pulse Ox 97.4 F L 65 18 93/58 L 98 12/26/17 15:15 12/26/17 15:15 12/26/17 15:15 12/26/17 15:15 12/26/17 15:15 Intake and Output: 12/26/17 12/27/17 18:59 06:59 Intake Total 480 150 Output Total 300 Balance 180 150 - Medications Medications: Current Medications Acetaminophen (Tylenol 325mg Tab) 650 mg PO Q6 PRN PRN Reason: Pain, moderate (4-7) Last Admin: 12/26/17 21:07 Dose: 650 mg Aspirin (Aspirin Chewable) 81 mg PO DAILY [facility] Last Admin: 12/26/17 10:01 Dose: 81 mg Carvedilol (Coreg) 6.25 mg PO BID [facility] Last Admin: 12/26/17 17:41 Dose: Not Given Clopidogrel Bisulfate (Plavix) 75 mg PO DAILY [facility] Last Admin: 12/26/17 10:02 Dose: 75 mg Digoxin (Digoxin) 0.125 mg PO DAILY@1800 [facility] Last Admin: 12/26/17 17:42 Dose: 0.125 mg Donepezil HCl (Aricept) 10 mg PO HS [facility] Last Admin: 12/26/17 21:08 Dose: 10 mg Enalapril Maleate (Vasotec) 2.5 mg PO DAILY [facility] Last Admin: 12/26/17 10:02 Dose: 2.5 mg Enoxaparin Sodium (Lovenox) 30 mg SC DAILY [facility] Last Admin: 12/26/17 10:02 Dose: 30 mg Furosemide (Lasix) 40 mg IVP DAILY [facility] Last Admin: 12/26/17 10:02 Dose: 40 mg Insulin Human Regular (Novolin R) 0 unit SC [facility] PRN Reason: Protocol Last Admin: 12/26/17 21:59 Dose: Not Given Lorazepam (Ativan) 0.5 mg PO Q12 PRN PRN Reason: Anxiety Multivitamins (Hexavitamin) 1 tab PO DAILY [facility] Last Admin: 12/26/17 10:01 Dose: 1 tab Rosuvastatin Calcium (Crestor) 10 mg PO HS [facility] Last Admin: 12/26/17 21:08 Dose: 10 mg Sitagliptin Phosphate (Januvia) 25 mg PO DAILY [facility] Last Admin: 12/26/17 10:02 Dose: 25 mg Spironolactone (Aldactone) 25 mg PO DAILY [facility] Last Admin: 12/26/17 10:01 Dose: 25 mg - Labs Labs: 12/26/17 11:22 12/26/17 11:22 PT 13.5 SECONDS (9.7-12.2) H 12/22/17 16:17 INR 1.2 12/22/17 16:17 APTT 36 SECONDS (21-34) H 12/22/17 16:17 Assessment and Plan (1) CHF (congestive heart failure) Status: Acute (2) Alzheimer disease Status: Acute (3) Dementia Status: Acute (4) Dilated cardiomyopathy Status: Acute (5) Diabetes mellitus type 2 in nonobese Status: Chronic (6) Hypertension Status: Chronic
[2017-12-27] MEDS: (Novolin R) Insulin Human Regular 100 units/ml vial SC SCH ×4 (07:44→21:34)
[2017-12-27] MEDS: Enoxaparin 30 mg Syringe SC SCH (09:38)
[2017-12-27] MEDS: Multiple Vitamins Tab PO SCH (09:46)
--- NOTE | 2017-12-27 15:19 | CP.PCM.PN ---
Subjective - Date & Time of Evaluation Date of Evaluation: 12/27/17 Time of Evaluation: 11:25 - Subjective Subjective: Patient seen and examined at bedside today. Patient was resting comfortably in bed in no acute distress. Patient states she has been feeling very drowsy lately but no other complaints. Patient denies shortness of breath or chest pain. Patient on 1:1 for safety due to fall on 12/23. Assessment/Plan: 1. Pleural Effusion secondary to CHF - WBC 12/26: 8.9 - Repeat CXR to monitor resolution - Continue diuretics as tolerated, Lasix 40mg IVP daily - Strict I &O - Albuterol/Ipatropium INH RQ4 2. CHF, Ejection fraction 15-20% - Continue Lasix to optimize fluid status - Strict I&O, daily Wt 3. Alzheimer Disease - Management per primary team 4. Dilated cardiomyopathy - Management per primary team Objective - Vital Signs/Intake and Output Vital Signs (last 24 hours): Temp Pulse Resp BP Pulse Ox 97.3 F L 63 100 H 99/58 L 99 12/27/17 08:00 12/27/17 12:00 12/27/17 08:00 12/27/17 11:54 12/26/17 23:30 Intake and Output: 12/27/17 12/27/17 06:59 18:59 Intake Total 400 380 Balance 400 380 - Medications Medications: Current Medications Acetaminophen (Tylenol 325mg Tab) 650 mg PO Q6 PRN PRN Reason: Pain, moderate (4-7) Last Admin: 12/26/17 21:07 Dose: 650 mg Aspirin (Aspirin Chewable) 81 mg PO DAILY [facility] Last Admin: 12/27/17 09:45 Dose: 81 mg Carvedilol (Coreg) 6.25 mg PO BID [facility] Last Admin: 12/27/17 10:59 Dose: 6.25 mg Clopidogrel Bisulfate (Plavix) 75 mg PO DAILY [facility] Last Admin: 12/27/17 11:45 Dose: 75 mg Digoxin (Digoxin) 0.125 mg PO DAILY@1800 [facility] Last Admin: 12/26/17 17:42 Dose: 0.125 mg Donepezil HCl (Aricept) 10 mg PO HS [facility] Last Admin: 12/26/17 21:08 Dose: 10 mg Enalapril Maleate (Vasotec) 2.5 mg PO DAILY [facility] Last Admin: 12/27/17 09:45 Dose: 2.5 mg Enoxaparin Sodium (Lovenox) 30 mg SC DAILY [facility] Last Admin: 12/27/17 09:38 Dose: 30 mg Furosemide (Lasix) 40 mg IVP DAILY [facility] Last Admin: 12/27/17 10:57 Dose: 40 mg Insulin Human Regular (Novolin R) 0 unit SC ACHS [facility] PRN Reason: Protocol Last Admin: 12/27/17 11:45 Dose: Not Given Lorazepam (Ativan) 0.5 mg PO Q12 PRN PRN Reason: Anxiety Multivitamins (Hexavitamin) 1 tab PO DAILY [facility] Last Admin: 12/27/17 09:46 Dose: 1 tab Rosuvastatin Calcium (Crestor) 10 mg PO HS [facility] Last Admin: 12/26/17 21:08 Dose: 10 mg Sitagliptin Phosphate (Januvia) 25 mg PO DAILY [facility] Last Admin: 12/27/17 09:45 Dose: 25 mg Spironolactone (Aldactone) 25 mg PO DAILY [facility] Last Admin: 12/27/17 10:59 Dose: 25 mg - Labs Labs: 12/26/17 11:22 12/26/17 11:22 PT 13.5 SECONDS (9.7-12.2) H 12/22/17 16:17 INR 1.2 12/22/17 16:17 APTT 36 SECONDS (21-34) H 12/22/17 16:17
--- NOTE | 2017-12-27 17:31 | CP.PCM.PN ---
Subjective - Date & Time of Evaluation Date of Evaluation: 12/27/17 Time of Evaluation: 15:05 - Subjective Subjective: Patient seen and evaluated Denies chest pain and dyspnea Objective - Vital Signs/Intake and Output Vital Signs (last 24 hours): Temp Pulse Resp BP Pulse Ox 97.9 F 58 L 20 90/51 L 97 12/27/17 15:00 12/27/17 16:00 12/27/17 15:00 12/27/17 15:00 12/27/17 15:00 Intake and Output: 12/27/17 12/27/17 06:59 18:59 Intake Total 400 380 Balance 400 380 - Medications Medications: Current Medications Acetaminophen (Tylenol 325mg Tab) 650 mg PO Q6 PRN PRN Reason: Pain, moderate (4-7) Last Admin: 12/26/17 21:07 Dose: 650 mg Aspirin (Aspirin Chewable) 81 mg PO DAILY [facility] Last Admin: 12/27/17 09:45 Dose: 81 mg Carvedilol (Coreg) 6.25 mg PO BID [facility] Last Admin: 12/27/17 10:59 Dose: 6.25 mg Clopidogrel Bisulfate (Plavix) 75 mg PO DAILY [facility] Last Admin: 12/27/17 11:45 Dose: 75 mg Digoxin (Digoxin) 0.125 mg PO DAILY@1800 [facility] Last Admin: 12/26/17 17:42 Dose: 0.125 mg Donepezil HCl (Aricept) 10 mg PO HS [facility] Last Admin: 12/26/17 21:08 Dose: 10 mg Enalapril Maleate (Vasotec) 2.5 mg PO DAILY [facility] Last Admin: 12/27/17 09:45 Dose: 2.5 mg Enoxaparin Sodium (Lovenox) 30 mg SC DAILY [facility] Last Admin: 12/27/17 09:38 Dose: 30 mg Furosemide (Lasix) 40 mg IVP DAILY [facility] Last Admin: 12/27/17 10:57 Dose: 40 mg Insulin Human Regular (Novolin R) 0 unit SC [facility] PRN Reason: Protocol Last Admin: 12/27/17 16:35 Dose: Not Given Lorazepam (Ativan) 0.5 mg PO Q12 PRN PRN Reason: Anxiety Multivitamins (Hexavitamin) 1 tab PO DAILY [facility] Last Admin: 12/27/17 09:46 Dose: 1 tab Rosuvastatin Calcium (Crestor) 10 mg PO HS [facility] Last Admin: 12/26/17 21:08 Dose: 10 mg Sitagliptin Phosphate (Januvia) 25 mg PO DAILY [facility] Last Admin: 12/27/17 09:45 Dose: 25 mg Spironolactone (Aldactone) 25 mg PO DAILY [facility] Last Admin: 12/27/17 10:59 Dose: 25 mg - Labs Labs: 12/26/17 11:22 12/26/17 11:22 PT 13.5 SECONDS (9.7-12.2) H 12/22/17 16:17 INR 1.2 12/22/17 16:17 APTT 36 SECONDS (21-34) H 12/22/17 16:17 - Head Exam Head Exam: ATRAUMATIC, NORMAL INSPECTION - Eye Exam Eye Exam: EOMI, Normal appearance Pupil Exam: NORMAL ACCOMODATION, PERRL - ENT Exam ENT Exam: Mucous Membranes Moist, Normal Exam - Neck Exam Neck Exam: Full ROM, Normal Inspection - Respiratory Exam Respiratory Exam: Decreased Breath Sounds - Cardiovascular Exam Cardiovascular Exam: REGULAR RHYTHM, +S1, +S2 - GI/Abdominal Exam GI & Abdominal Exam: Soft, Normal Bowel Sounds - Extremities Exam Extremities Exam: Full ROM, Normal Capillary Refill - Neurological Exam Neurological Exam: Alert, Awake, CN II-XII Intact, Oriented x3 - Skin Skin Exam: Dry, Warm Assessment and Plan - Assessment and Plan (Free Text) Assessment: 1.Ischemic dilated CMP with EF 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 CAD hx of AR 3. Dementia Medical management
[2017-12-27] MEDS: Digoxin 125 mcg (0.125 mg) Tab PO SCH (18:45)
--- NOTE | 2017-12-27 22:56 | CP.PCM.PN ---
Subjective - Date & Time of Evaluation Date of Evaluation: 12/27/17 Time of Evaluation: 19:00 - Subjective Subjective: PT SEEN AND EXAMINED TODAY Objective - Vital Signs/Intake and Output Vital Signs (last 24 hours): Temp Pulse Resp BP Pulse Ox 97.9 F 69 20 90/51 L 97 12/27/17 15:00 12/27/17 21:48 12/27/17 15:00 12/27/17 15:00 12/27/17 15:00 Intake and Output: 12/27/17 12/28/17 18:59 06:59 Intake Total 380 Balance 380 - Medications Medications: Current Medications Acetaminophen (Tylenol 325mg Tab) 650 mg PO Q6 PRN PRN Reason: Pain, moderate (4-7) Last Admin: 12/26/17 21:07 Dose: 650 mg Aspirin (Aspirin Chewable) 81 mg PO DAILY [facility] Last Admin: 12/27/17 09:45 Dose: 81 mg Carvedilol (Coreg) 6.25 mg PO BID [facility] Last Admin: 12/27/17 17:37 Dose: Not Given Clopidogrel Bisulfate (Plavix) 75 mg PO DAILY [facility] Last Admin: 12/27/17 11:45 Dose: 75 mg Digoxin (Digoxin) 0.125 mg PO DAILY@1800 [facility] Last Admin: 12/27/17 18:45 Dose: 0.125 mg Donepezil HCl (Aricept) 10 mg PO HS [facility] Last Admin: 12/27/17 21:28 Dose: 10 mg Enalapril Maleate (Vasotec) 2.5 mg PO DAILY [facility] Last Admin: 12/27/17 09:45 Dose: 2.5 mg Enoxaparin Sodium (Lovenox) 30 mg SC DAILY [facility] Last Admin: 12/27/17 09:38 Dose: 30 mg Furosemide (Lasix) 40 mg IVP DAILY [facility] Last Admin: 12/27/17 10:57 Dose: 40 mg Insulin Human Regular (Novolin R) 0 unit SC [facility] PRN Reason: Protocol Last Admin: 12/27/17 21:34 Dose: Not Given Lorazepam (Ativan) 0.5 mg PO Q12 PRN PRN Reason: Anxiety Multivitamins (Hexavitamin) 1 tab PO DAILY [facility] Last Admin: 12/27/17 09:46 Dose: 1 tab Rosuvastatin Calcium (Crestor) 10 mg PO HS [facility] Last Admin: 12/27/17 21:28 Dose: 10 mg Sitagliptin Phosphate (Januvia) 25 mg PO DAILY [facility] Last Admin: 12/27/17 09:45 Dose: 25 mg Spironolactone (Aldactone) 25 mg PO DAILY [facility] Last Admin: 12/27/17 10:59 Dose: 25 mg - Labs Labs: 12/26/17 11:22 12/26/17 11:22 PT 13.5 SECONDS (9.7-12.2) H 12/22/17 16:17 INR 1.2 12/22/17 16:17 APTT 36 SECONDS (21-34) H 12/22/17 16:17 Assessment and Plan (1) CHF (congestive heart failure) Status: Acute (2) Alzheimer disease Status: Acute (3) Dementia Status: Acute (4) Dilated cardiomyopathy Status: Acute (5) Diabetes mellitus type 2 in nonobese Status: Chronic (6) Hypertension Status: Chronic
[2017-12-28 07:36] LABS: BLOOD UREA NITROGEN 34 mg/dL (7-17); CALCIUM 8.6 mg/dl (8.6-10.4); GFR AFRICAN-AMERICAN > 60; GFR NON-AFRICAN AMERICAN > 60
[2017-12-28] MEDS: (Novolin R) Insulin Human Regular 100 units/ml vial SC SCH ×4 (08:50→22:44)
[2017-12-28] MEDS: Multiple Vitamins Tab PO SCH (10:44)
[2017-12-28] MEDS: Enoxaparin 30 mg Syringe SC SCH (10:52)
[2017-12-28 17:48] VITALS: PULSE 64
[2017-12-28] MEDS: Digoxin 125 mcg (0.125 mg) Tab PO SCH (17:48)
--- NOTE | 2017-12-28 18:00 | CP.PCM.PN ---
Subjective - Date & Time of Evaluation Date of Evaluation: 12/28/17 Time of Evaluation: 13:30 - Subjective Subjective: Patient seen and examined at bedside today. Patient was resting comfortably in bed in no acute distress. Patient states she feels better today. Patient denies shortness of breath or chest pain. Patient remains on 1:1 for safety due to a previous fall on 12/23. Assessment/Plan: 1. Pleural Effusion secondary to CHF - WBC 12/26: 8.9 - Repeat CXR to monitor resolution - Continue diuretics as tolerated, Lasix 40mg IVP daily - Strict I &O - Albuterol/Ipatropium INH RQ4 2. CHF, Ejection fraction 15-20% - Continue Lasix to optimize fluid status - Strict I&O, daily Wt 3. Alzheimer Disease - Management per primary team 4. Dilated cardiomyopathy - Management per primary team Objective - Vital Signs/Intake and Output Vital Signs (last 24 hours): Temp Pulse Resp BP Pulse Ox 97.4 F L 66 16 86/53 L 99 12/28/17 15:46 12/28/17 16:53 12/28/17 16:53 12/28/17 16:53 12/28/17 15:46 Intake and Output: 12/28/17 12/28/17 06:59 18:59 Intake Total 480 Output Total 500 Balance -20 - Medications Medications: Current Medications Acetaminophen (Tylenol 325mg Tab) 650 mg PO Q6 PRN PRN Reason: Pain, moderate (4-7) Last Admin: 12/26/17 21:07 Dose: 650 mg Aspirin (Aspirin Chewable) 81 mg PO DAILY [facility] Last Admin: 12/28/17 10:44 Dose: 81 mg Carvedilol (Coreg) 6.25 mg PO BID [facility] Last Admin: 12/28/17 17:46 Dose: Not Given Clopidogrel Bisulfate (Plavix) 75 mg PO DAILY [facility] Last Admin: 12/28/17 10:44 Dose: 75 mg Digoxin (Digoxin) 0.125 mg PO DAILY@1800 [facility] Last Admin: 12/28/17 17:48 Dose: 0.125 mg Donepezil HCl (Aricept) 10 mg PO HS [facility] Last Admin: 12/27/17 21:28 Dose: 10 mg Enalapril Maleate (Vasotec) 2.5 mg PO DAILY [facility] Last Admin: 12/28/17 11:44 Dose: 2.5 mg Enoxaparin Sodium (Lovenox) 30 mg SC DAILY [facility] Last Admin: 12/28/17 10:52 Dose: 30 mg Furosemide (Lasix) 40 mg IVP DAILY [facility] Last Admin: 12/28/17 10:46 Dose: 40 mg Insulin Human Regular (Novolin R) 0 unit SC [facility] PRN Reason: Protocol Last Admin: 12/28/17 17:47 Dose: 1 unit Lorazepam (Ativan) 0.5 mg PO Q12 PRN PRN Reason: Anxiety Multivitamins (Hexavitamin) 1 tab PO DAILY [facility] Last Admin: 12/28/17 10:44 Dose: 1 tab Rosuvastatin Calcium (Crestor) 10 mg PO HS [facility] Last Admin: 12/27/17 21:28 Dose: 10 mg Sitagliptin Phosphate (Januvia) 25 mg PO DAILY [facility] Last Admin: 12/28/17 10:44 Dose: 25 mg Spironolactone (Aldactone) 25 mg PO DAILY [facility] Last Admin: 12/28/17 10:44 Dose: 25 mg - Labs Labs: 12/26/17 11:22 12/28/17 07:12 PT 13.5 SECONDS (9.7-12.2) H 12/22/17 16:17 INR 1.2 12/22/17 16:17 APTT 36 SECONDS (21-34) H 12/22/17 16:17
[2017-12-28 23:09] VITALS: RESP 20
--- NOTE | 2017-12-28 23:46 | CP.PCM.PN ---
Subjective - Date & Time of Evaluation Date of Evaluation: 12/28/17 Time of Evaluation: 18:35 - Subjective Subjective: Pt seen and evaluated at bedside, pt had few episode of low blood pressure, pt is on diuretics, intake, ou take Objective - Vital Signs/Intake and Output Vital Signs (last 24 hours): Temp Pulse Resp BP Pulse Ox 97.4 F L 69 20 95/54 L 97 12/28/17 23:08 12/28/17 23:08 12/28/17 23:08 12/28/17 23:08 12/28/17 23:08 Intake and Output: 12/28/17 12/29/17 18:59 06:59 Intake Total 480 Output Total 500 Balance -20 - Medications Medications: Current Medications Acetaminophen (Tylenol 325mg Tab) 650 mg PO Q6 PRN PRN Reason: Pain, moderate (4-7) Last Admin: 12/26/17 21:07 Dose: 650 mg Aspirin (Aspirin Chewable) 81 mg PO DAILY [facility] Last Admin: 12/28/17 10:44 Dose: 81 mg Carvedilol (Coreg) 6.25 mg PO BID [facility] Last Admin: 12/28/17 17:46 Dose: Not Given Clopidogrel Bisulfate (Plavix) 75 mg PO DAILY [facility] Last Admin: 12/28/17 10:44 Dose: 75 mg Digoxin (Digoxin) 0.125 mg PO DAILY@1800 [facility] Last Admin: 12/28/17 17:48 Dose: 0.125 mg Donepezil HCl (Aricept) 10 mg PO HS [facility] Last Admin: 12/28/17 21:18 Dose: 10 mg Enalapril Maleate (Vasotec) 2.5 mg PO DAILY [facility] Last Admin: 12/28/17 11:44 Dose: 2.5 mg Enoxaparin Sodium (Lovenox) 30 mg SC DAILY [facility] Last Admin: 12/28/17 10:52 Dose: 30 mg Furosemide (Lasix) 20 mg IVP DAILY [facility] Insulin Human Regular (Novolin R) 0 unit SC [facility] PRN Reason: Protocol Last Admin: 12/28/17 22:44 Dose: Not Given Lorazepam (Ativan) 0.5 mg PO Q12 PRN PRN Reason: Anxiety Multivitamins (Hexavitamin) 1 tab PO DAILY [facility] Last Admin: 12/28/17 10:44 Dose: 1 tab Rosuvastatin Calcium (Crestor) 10 mg PO HS [facility] Last Admin: 12/28/17 21:18 Dose: 10 mg Sitagliptin Phosphate (Januvia) 25 mg PO DAILY [facility] Last Admin: 12/28/17 10:44 Dose: 25 mg Spironolactone (Aldactone) 12.5 mg PO DAILY [facility] - Labs Labs: 12/26/17 11:22 12/28/17 07:12 PT 13.5 SECONDS (9.7-12.2) H 12/22/17 16:17 INR 1.2 12/22/17 16:17 APTT 36 SECONDS (21-34) H 12/22/17 16:17 - Constitutional Appears: No Acute Distress - Head Exam Head Exam: ATRAUMATIC, NORMAL INSPECTION, NORMOCEPHALIC - Eye Exam Eye Exam: EOMI, Normal appearance, PERRL Pupil Exam: NORMAL ACCOMODATION, PERRL - Respiratory Exam Respiratory Exam: Decreased Breath Sounds, Rales, Rhonchi - Cardiovascular Exam Cardiovascular Exam: REGULAR RHYTHM, +S1, +S2. absent: Murmur - GI/Abdominal Exam GI & Abdominal Exam: Soft, Normal Bowel Sounds. absent: Tenderness - Rectal Exam Rectal Exam: Deferred Assessment and Plan (1) CHF (congestive heart failure) Status: Acute (2) Alzheimer disease Status: Acute (3) Dementia Status: Acute (4) Dilated cardiomyopathy Status: Acute (5) Diabetes mellitus type 2 in nonobese Status: Chronic (6) Hypertension Status: Chronic
--- NOTE | 2017-12-29 04:46 | CP.PCM.PN ---
Subjective - Date & Time of Evaluation Date of Evaluation: 12/28/17 Time of Evaluation: 20:30 - Subjective Subjective: Patient seen and evaluated Denies chest pain and dyspnea Hypotension Physical examination - Constitutional Appears: No Acute Distress - Head Exam Head Exam: ATRAUMATIC, NORMAL INSPECTION, NORMOCEPHALIC - Eye Exam Eye Exam: EOMI, Normal appearance, PERRL Pupil Exam: NORMAL ACCOMODATION, PERRL - Respiratory Exam Respiratory Exam: Decreased Breath Sounds, Rales, Rhonchi - Cardiovascular Exam Cardiovascular Exam: REGULAR RHYTHM, +S1, +S2. absent: Murmur - GI/Abdominal Exam GI & Abdominal Exam: Soft, Normal Bowel Sounds. absent: Tenderness - Rectal Exam Rectal Exam: Deferred Objective - Vital Signs/Intake and Output Vital Signs (last 24 hours): Temp Pulse Resp BP Pulse Ox 97.4 F L 69 20 95/54 L 97 12/28/17 23:08 12/28/17 23:08 12/28/17 23:08 12/28/17 23:08 12/28/17 23:08 Intake and Output: 12/28/17 12/29/17 18:59 06:59 Intake Total 480 Output Total 500 Balance -20 - Medications Medications: Current Medications Acetaminophen (Tylenol 325mg Tab) 650 mg PO Q6 PRN PRN Reason: Pain, moderate (4-7) Last Admin: 12/26/17 21:07 Dose: 650 mg Aspirin (Aspirin Chewable) 81 mg PO DAILY [facility] Last Admin: 12/28/17 10:44 Dose: 81 mg Carvedilol (Coreg) 6.25 mg PO BID [facility] Last Admin: 12/28/17 17:46 Dose: Not Given Clopidogrel Bisulfate (Plavix) 75 mg PO DAILY [facility] Last Admin: 12/28/17 10:44 Dose: 75 mg Digoxin (Digoxin) 0.125 mg PO DAILY@1800 [facility] Last Admin: 12/28/17 17:48 Dose: 0.125 mg Donepezil HCl (Aricept) 10 mg PO HS [facility] Last Admin: 12/28/17 21:18 Dose: 10 mg Enalapril Maleate (Vasotec) 2.5 mg PO DAILY [facility] Last Admin: 12/28/17 11:44 Dose: 2.5 mg Enoxaparin Sodium (Lovenox) 30 mg SC DAILY [facility] Last Admin: 12/28/17 10:52 Dose: 30 mg Furosemide (Lasix) 20 mg IVP DAILY [facility] Insulin Human Regular (Novolin R) 0 unit SC [facility] PRN Reason: Protocol Last Admin: 12/28/17 22:44 Dose: Not Given Lorazepam (Ativan) 0.5 mg PO Q12 PRN PRN Reason: Anxiety Multivitamins (Hexavitamin) 1 tab PO DAILY [facility] Last Admin: 12/28/17 10:44 Dose: 1 tab Rosuvastatin Calcium (Crestor) 10 mg PO HS [facility] Last Admin: 12/28/17 21:18 Dose: 10 mg Sitagliptin Phosphate (Januvia) 25 mg PO DAILY [facility] Last Admin: 12/28/17 10:44 Dose: 25 mg Spironolactone (Aldactone) 12.5 mg PO DAILY [facility] - Labs Labs: 12/26/17 11:22 12/28/17 07:12 PT 13.5 SECONDS (9.7-12.2) H 12/22/17 16:17 INR 1.2 12/22/17 16:17 APTT 36 SECONDS (21-34) H 12/22/17 16:17 Assessment and Plan - Assessment and Plan (Free Text) Assessment: (1) CHF (congestive heart failure)/Hypotension Status: Acute Will decrease coreg to 3/125 po bid Change lasx to 20 po daily (2) Alzheimer disease Status: Acute (3) Dementia Status: Acute (4) Dilated cardiomyopathy Status: Acute (5) Diabetes mellitus type 2 in nonobese Status: Chronic (6) Hypertension Status: Chronic
[2017-12-29 07:33] LABS: BLOOD UREA NITROGEN 30 mg/dL (7-17); CALCIUM 8.9 mg/dl (8.6-10.4); GFR AFRICAN-AMERICAN > 60; GFR NON-AFRICAN AMERICAN > 60
[2017-12-29] MEDS: (Novolin R) Insulin Human Regular 100 units/ml vial SC SCH ×3 (07:44→16:32)
[2017-12-29] MEDS: Multiple Vitamins Tab PO SCH (09:56)
[2017-12-29] MEDS: Enoxaparin 30 mg Syringe SC SCH (09:58)
--- NOTE | 2017-12-29 13:41 | PCM.HF ---
Heart Failure Core Measure - Heart Failure Ejection Fraction: Less Than 40 % JEANNE Inhibitor Prescribed: Yes Beta-Janee Prescribed: Carvedilol Angiotensin II Receptor Janee Prescribed: No Contraindication/Reason for not providing: ON JEANNE AnticoagulationTherapy for Atrial Fibrillation/Atrialflutter: No Contraindication/Reason for not providing: NO AFIB Aldosterone Antagonist Prescribed: No Contraindication/Reason for not providing: ON LASIX AND ALDACTONE Hydralazine Nitrate Prescribed: No Contraindication/Reason for not providing: EPISODES OF HYPOTENSION Implantable Cardioverter Defibrillator Therapy: Yes Cardiac Resynchronization Therapy Prescribed: No Contraindication/Reason for not providing: HAS AICD - Follow up Will be discharged to: Home Follow Up Date (must be within 7 days from discharge): 01/04/18 Follow Up Time: 09:00
[2017-12-29] MEDS ORDERED: Neomy-Polymyx-Dexameth Ophth Susp (5 ml) OU SCH (14:00)
--- NOTE | 2017-12-29 15:04 | CP.PCM.PN ---
Subjective - Date & Time of Evaluation Date of Evaluation: 12/29/17 Time of Evaluation: 15:03 - Subjective Subjective: PT CLEARED FOR D/C HOME TODAY PER DR. ALVAREZ. NEW RX DISCUSSED WITH THE PT. FAMILY TO PICK HER UP THIS AFTERNOON. NEW RX SENT TO PT'S PHARMACY. SHE WILL F/ U WITH Dipesh ALVAREZ IN THE OFFICE IN 1 WEEK. NO FURTHER ORDERS. -FOLLOW UP WITH DR. ALVAREZ IN THE OFFICE WITHIN 1 WEEK---CALL THE OFFICE TO MAKE YOUR APPOINTMENT. -CONTINUE HOME MEDICATIONS USUAL. -NEW PRESCRIPTIONS INCLUDE THE FOLLOWING; TAKE EXACTLY PRESCRIBED: 1) ALDACTONE 12.5 MG (TAKE 1 TABLET) ONCE A DAY. 2) LASIX 20 MG (TAKE 1 TABLET) ONCE A DAY. 3) ENALAPRIL 2.5 MG (TAKE 1 TABLET) ONCE A DAY. 4) EYE DROPS; PUT 1 DROP IN LEFT EYE 4 TIMES A DAY FOR 1 WEEK. -FOR FURTHER QUESTIONS OR CONCERNS, CONTACT DR. ALVAREZ. Objective - Vital Signs/Intake and Output Vital Signs (last 24 hours): Temp Pulse Resp BP Pulse Ox 98.4 F 73 20 96/48 L 94 L 12/29/17 08:48 12/29/17 08:48 12/29/17 08:48 12/29/17 09:57 12/29/17 08:48 Intake and Output: 12/29/17 12/29/17 06:59 18:59 Intake Total 300 Balance 300 - Medications Medications: Current Medications Acetaminophen (Tylenol 325mg Tab) 650 mg PO Q6 PRN PRN Reason: Pain, moderate (4-7) Last Admin: 12/26/17 21:07 Dose: 650 mg Aspirin (Aspirin Chewable) 81 mg PO DAILY [facility] Last Admin: 12/29/17 09:55 Dose: 81 mg Carvedilol (Coreg) 3.125 mg PO BID [facility] Last Admin: 12/29/17 09:56 Dose: 3.125 mg Clopidogrel Bisulfate (Plavix) 75 mg PO DAILY [facility] Last Admin: 12/29/17 09:56 Dose: 75 mg Digoxin (Digoxin) 0.125 mg PO DAILY@1800 [facility] Last Admin: 12/28/17 17:48 Dose: 0.125 mg Donepezil HCl (Aricept) 10 mg PO HS [facility] Last Admin: 12/28/17 21:18 Dose: 10 mg Enalapril Maleate (Vasotec) 2.5 mg PO DAILY [facility] Last Admin: 12/29/17 09:56 Dose: 2.5 mg Enoxaparin Sodium (Lovenox) 30 mg SC DAILY [facility] Last Admin: 12/29/17 09:58 Dose: 30 mg Furosemide (Lasix) 20 mg PO DAILY [facility] Last Admin: 12/29/17 09:57 Dose: 20 mg Insulin Human Regular (Novolin R) 0 unit SC ACH[facility] PRN Reason: Protocol Last Admin: 12/29/17 12:18 Dose: Not Given Lorazepam (Ativan) 0.5 mg PO Q12 PRN PRN Reason: Anxiety Multivitamins (Hexavitamin) 1 tab PO DAILY [facility] Last Admin: 12/29/17 09:56 Dose: 1 tab Neomycin/Polymyxin/Dexamethasone (Maxitrol Opth Oint) 1 gm OS QID [facility] Rosuvastatin Calcium (Crestor) 10 mg PO HS [facility] Last Admin: 12/28/17 21:18 Dose: 10 mg Sitagliptin Phosphate (Januvia) 25 mg PO DAILY [facility] Last Admin: 12/29/17 09:55 Dose: 25 mg Spironolactone (Aldactone) 12.5 mg PO DAILY [facility] Last Admin: 12/29/17 09:58 Dose: 12.5 mg - Labs Labs: 12/26/17 11:22 12/29/17 07:13 PT 13.5 SECONDS (9.7-12.2) H 12/22/17 16:17 INR 1.2 12/22/17 16:17 APTT 36 SECONDS (21-34) H 12/22/17 16:17
[2017-12-29 15:59] VITALS: BP 107/57; PULSE 61; TEMP 97.5; O2SAT 95
[2017-12-29] MEDS ORDERED: [UNRECOGNIZED DRUG - OTHER] OS SCH (18:00)
--- NOTE | 2017-12-29 22:56 | CP.PCM.DIS ---
Provider - Provider Date of Admission: 12/22/17 16:52 Attending physician: Celso Bonilla MD Time Spent in preparation of Discharge (in minutes): 45 Diagnosis - Discharge Diagnosis (1) CHF (congestive heart failure) Status: Acute (2) Alzheimer disease Status: Acute (3) Dementia Status: Acute (4) Dilated cardiomyopathy Status: Acute (5) Diabetes mellitus type 2 in nonobese Status: Chronic (6) Hypertension Status: Chronic Hospital Course - Lab Results Lab Results: Most Recent Lab Values WBC 8.9 K/uL (4.8-10.8) 12/26/17 11:22 RBC 3.96 Mil/uL (3.80-5.20) 12/26/17 11:22 Hgb 10.1 g/dL (11.0-16.0) L 12/26/17 11:22 Hct 32.0 % (34.0-47.0) L 12/26/17 11:22 MCV 80.8 fL (81.0-99.0) L 12/26/17 11:22 MCH 25.6 pg (27.0-31.0) L 12/26/17 11:22 MCHC 31.6 g/dL (33.0-37.0) L 12/26/17 11:22 RDW 17.4 % (11.5-14.5) H 12/26/17 11:22 Plt Count 391 K/uL (130-400) 12/26/17 11:22 MPV 8.7 fL (7.2-11.7) 12/26/17 11:22 Neut % (Auto) 68.2 % (50.0-75.0) 12/24/17 08:05 Lymph % (Auto) 18.9 % (20.0-40.0) L 12/24/17 08:05 [place] % (Auto) 10.4 % (0.0-10.0) H 12/24/17 08:05 Eos % (Auto) 1.8 % (0.0-4.0) 12/24/17 08:05 Baso % (Auto) 0.7 % (0.0-2.0) 12/24/17 08:05 Neut # (Auto) 5.6 K/uL (1.8-7.0) 12/24/17 08:05 Lymph # (Auto) 1.5 K/uL (1.0-4.3) 12/24/17 08:05 [place] # (Auto) 0.8 K/uL (0.0-0.8) 12/24/17 08:05 Eos # (Auto) 0.1 K/uL (0.0-0.7) 12/24/17 08:05 Baso # (Auto) 0.1 K/uL (0.0-0.2) 12/24/17 08:05 PT 13.5 SECONDS (9.7-12.2) H 12/22/17 16:17 INR 1.2 12/22/17 16:17 APTT 36 SECONDS (21-34) H 12/22/17 16:17 Sodium 134 mmol/L (132-148) 12/29/17 07:13 Potassium 4.9 mmol/L (3.6-5.2) 12/29/17 07:13 Chloride 89 mmol/L (98-107) L 12/29/17 07:13 Carbon Dioxide 37 mmol/L (22-30) H 12/29/17 07:13 Anion Gap 12 (10-20) 12/29/17 07:13 BUN 30 mg/dL (7-17) H 12/29/17 07:13 Creatinine 0.7 mg/dL (0.7-1.2) 12/29/17 07:13 Est GFR ( Amer) > 60 12/29/17 07:13 Est GFR (Non-Af Amer) > 60 12/29/17 07:13 POC Glucose (mg/dL) 120 mg/dL (65-110) H 12/29/17 16:18 Random Glucose 96 mg/dL (65-105) 12/29/17 07:13 Calcium 8.9 mg/dl (8.6-10.4) 12/29/17 07:13 Total Bilirubin 0.6 mg/dL (0.2-1.3) 12/22/17 16:17 AST 25 U/L (14-36) 12/22/17 16:17 ALT 30 U/L (9-52) 12/22/17 16:17 Alkaline Phosphatase 79 U/L (38-126) 12/22/17 16:17 Total Creatine Kinase 20 U/L (30-135) L 12/23/17 04:37 CK-MB (Mass) 1.69 ng/mL (0.0-3.38) 12/23/17 04:37 Troponin I 0.0330 ng/mL (0.00-0.120) 12/23/17 04:37 NT-Pro-B Natriuret Pep 97985 pg/mL (0-900) H 12/22/17 16:17 Total Protein 6.6 g/dL (6.3-8.3) 12/22/17 16:17 Albumin 3.3 g/dL (3.5-5.0) L 12/22/17 16:17 Globulin 3.3 gm/dL (2.2-3.9) 12/22/17 16:17 Albumin/Globulin Ratio 1.0 (1.0-2.1) 12/22/17 16:17 Urine Color Yellow (YELLOW) 12/22/17 16:48 Urine Clarity Clear (Clear) 12/22/17 16:48 Urine pH 6.0 (5.0-8.0) 12/22/17 16:48 Ur Specific [place] 1.008 (1.003-1.030) 12/22/17 16:48 Urine Protein Negative mg/dL (NEGATIVE) 12/22/17 16:48 Urine Glucose (UA) Normal mg/dL (Normal) 12/22/17 16:48 Urine Ketones Negative mg/dL (NEGATIVE) 12/22/17 16:48 Urine Blood Negative (NEGATIVE) 12/22/17 16:48 Urine Nitrate Negative (NEGATIVE) 12/22/17 16:48 Urine Bilirubin Negative (NEGATIVE) 12/22/17 16:48 Urine Urobilinogen Normal mg/dL (0.2-1.0) 12/22/17 16:48 Ur Leukocyte Esterase Neg [place]/uL (Negative) 12/22/17 16:48 Urine WBC (Auto) < 1 /hpf (0-5) 12/22/17 16:48 Urine RBC (Auto) < 1 /hpf (0-3) 12/22/17 16:48 Ur Squamous Epith Cells < 1 /hpf (0-5) 12/22/17 16:48 Ur Transition Epith Cell < 1 /hpf (0-3) 12/22/17 16:48 Urine Bacteria Occ (<OCC) H 12/22/17 16:48 - Hospital Course Hospital Course: PT CLEARED FOR D/C HOME TODAY , SEEN AND EXAINED BY ME, NEW RX DISCUSSED WITH THE PT. FAMILY TO PICK HER UP THIS AFTERNOON. NEW RX SENT TO PT'S PHARMACY. ADVISED TO F/U WITH ME IN THE OFFICE IN 1 WEEK. NO FURTHER ORDERS. -FOLLOW UP WITH ME IN THE OFFICE WITHIN 1 WEEK---CALL THE OFFICE TO MAKE YOUR APPOINTMENT. -CONTINUE HOME MEDICATIONS USUAL. -NEW PRESCRIPTIONS INCLUDE THE FOLLOWING; TAKE EXACTLY PRESCRIBED: 1) ALDACTONE 12.5 MG (TAKE 1 TABLET) ONCE A DAY. 2) LASIX 20 MG (TAKE 1 TABLET) ONCE A DAY. 3) ENALAPRIL 2.5 MG (TAKE 1 TABLET) ONCE A DAY. 4) EYE DROPS; PUT 1 DROP IN LEFT EYE 4 TIMES A DAY FOR 1 WEEK. -FOR FURTHER QUESTIONS OR CONCERNS, CONTACT MY OFFICE Discharge Exam - Head Exam Head Exam: ATRAUMATIC, NORMAL INSPECTION, NORMOCEPHALIC Discharge Plan - Discharge Medications Prescriptions: Spironolactone [Aldactone] 12.5 mg PO DAILY #30 tab Furosemide [Lasix] 20 mg PO DAILY #30 tab Neomycin/Polymyxin/Dexamethaso [Maxitrol Opht Susp] 1 drop OU QID #1 bottle Enalapril Maleate [Vasotec] 2.5 mg PO DAILY #30 tab - Follow Up Plan Condition: FAIR Disposition: HOME/ ROUTINE Instructions: Heart Healthy Diet, Heart Failure, Adult (DC), Carbohydrate Counting Diet, Diabetes Diet , Neomycin, Polymyxin B, and Dexamethasone, Enalapril, Furosemide, Spironolactone Additional Instructions: -FOLLOW UP WITH DR. BONILLA IN THE OFFICE WITHIN 1 WEEK---CALL THE OFFICE TO MAKE YOUR APPOINTMENT. -CONTINUE HOME MEDICATIONS USUAL. -NEW PRESCRIPTIONS INCLUDE THE FOLLOWING; TAKE EXACTLY PRESCRIBED: 1) ALDACTONE 12.5 MG (TAKE 1 TABLET) ONCE A DAY. 2) LASIX 20 MG (TAKE 1 TABLET) ONCE A DAY. 3) ENALAPRIL 2.5 MG (TAKE 1 TABLET) ONCE A DAY. 4) EYE DROPS; PUT 1 DROP IN LEFT EYE 4 TIMES A DAY FOR 1 WEEK. -FOR FURTHER QUESTIONS OR CONCERNS, CONTACT DR. BONILLA. Referrals: Luther Nolan MD [Staff Provider] - Kalen Robledo MD [Staff Provider] - Celso Bonilla MD [Staff Provider] - 01/06/18 1:00 pm (Appointment made for you spoke with Rylee)
--- NOTE | 2017-12-30 06:28 | CARD ---
APPROVED REPORT EKG Measurement Heart [id number] 140P23 [id number] <Conclusion> Normal sinus rhythm Possible Left atrial enlargement Left axis deviation Anterolateral infarct, age undetermined Abnormal ECG
== END 2017-12-29 17:18 | disposition home or self-care (01) | DRG 293 ==
LOC: C.ER 15:01 → C.9E 16:52 → C.6T 20:16
PROVIDERS: ADMIT Internal Medicine; ATTEND Internal Medicine
DX: I11.0 Hypertensive heart disease with heart failure (principal); I25.10 Atherosclerotic heart disease of native coronary artery without angina pectoris; I25.5 Ischemic cardiomyopathy; I42.0 Dilated cardiomyopathy; I50.22 Chronic systolic (congestive) heart failure; J44.9 Chronic obstructive pulmonary disease, unspecified; F17.210 Nicotine dependence, cigarettes, uncomplicated; F02.80 Dementia in other diseases classified elsewhere, unspecified severity, without behavioral disturbance, psychotic disturbance, mood disturbance, and anxiety; G30.9 Alzheimer's disease, unspecified; E11.9 Type 2 diabetes mellitus without complications; Z95.810 Presence of automatic (implantable) cardiac defibrillator; Z68.21 Body mass index [BMI] 21.0-21.9, adult; Z79.4 Long term (current) use of insulin

== ENCOUNTER 2018-01-22 13:13 | Observation (INO) | payer MEDICARE, OTHER ==
[2018-01-22 13:14] VITALS: BMI 18.8
--- NOTE | 2018-01-22 13:48 | C.PDOC ---
History Of Present Illness 78 y/o F c PMHx CHF, COPD, DM called by YAMILKA Bonilla today due to hyperkalemia found on routine outpatient labs. Patient notes palpitations and dyspnea over the past week. Denies chest pain, fever, vomiting. Time Seen by Provider: 01/22/18 13:32 Chief Complaint (Nursing): Dizziness/Lightheaded Past Medical History Vital Signs: Last Vital Signs Temp 98.4 F 01/22/18 13:23 Pulse 80 01/22/18 14:26 Resp 20 01/22/18 14:26 BP 100/63 01/22/18 14:26 Pulse Ox 93 L 01/22/18 14:44 - Medical History PMH: Arthritis, COPD (PER FAMILY), Dementia (PER FAMILY), Diabetes, HTN, Hypercholesterolemia Denies: Chronic Kidney Disease Surgical History: Pacemaker - [facility] Procedures FLUOROSCOPY OF MULT COR ART USING L OSM CONTRAST (09/12/17) FLUOROSCOPY OF RIGHT AND LEFT HEART USING L OSM CONTRAST (09/12/17) INSERTION OF INFUSION DEV INTO SUP VENA CAVA, PERC APPROACH (01/26/17) INTRODUCE LOCAL ANESTH IN PERIPH NRV, PLEXI, PERC (12/01/16) INTRODUCTION OF SERUM/TOX/VACCINE INTO MUSCLE, PERC APPROACH (12/01/16) MEASURE OF CARDIAC SAMPL & PRESSURE, L HEART, PERC APPROACH (09/12/17) REPOSITION RIGHT FIBULA WITH INT FIX, OPEN APPROACH (12/01/16) REPOSITION RIGHT TIBIA WITH INT FIX, OPEN APPROACH (12/01/16) Family History: States: Unknown Family Hx - Social History Hx Tobacco Use: Yes Hx Alcohol Use: No Hx Substance Use: No - Immunization History Hx Tetanus Toxoid Vaccination: No Hx Influenza Vaccination: Yes ( PER PATIENT) Hx Pneumococcal Vaccination: Yes ( PER PATIENT) Review Of Systems Except As Marked, All Systems Reviewed And Found Negative. Constitutional: Negative for: Fever Cardiovascular: Negative for: Chest Pain Physical Exam - Physical Exam Additional Physical Exam Comments: Gen: NAD Head: NC/AT Eyes: PERRL ENT: MMM Neck: Supple Chest: No tenderness CV: Regular rate. Radial pulses 2+ Lungs: CTA b/l Abd: Soft, NT Back: No CVA tenderness Extremities: Pitting edema of bilateral lower extremities Skin: No rash Neuro: Alert, no focal deficit ED Course And Treatment - Laboratory Results Result Diagrams: 01/22/18 14:05 01/22/18 14:05 O2 Sat by Pulse Oximetry: 93 - Other Rad CXR X-Ray: Viewed By Me, Read By Radiologist Interpretation: HISTORY: hyperkalemia. COMPARISON: 12/22/2017. FINDINGS: LUNGS: There is severe pulmonary venous congestion. There is bibasilar airspace disease. PLEURA: Moderate right and small left pleural effusions. No pneumothorax. CARDIOVASCULAR: There is mild cardiomegaly. Stable position of left-sided AICD. OSSEOUS STRUCTURES: No significant abnormalities. VISUALIZED UPPER ABDOMEN: Normal. OTHER FINDINGS: None. IMPRESSION: Findings are most compatible with congestive heart failure as described above. Medical Decision Making Medical Decision Making: Recheck potassium, check EKG for changes. ProBNP elevatred. Potassium 5.0, upper limit of normal. Lasix administered. Dr. Bonilla accepts patient to his service on observation. Disposition Discussed With : Celso Bonilla Doctor Will See Patient In The: Hospital - Disposition Disposition: HOSPITALIZED Disposition Time: 14:44 Condition: FAIR Forms: [employer] ([place]in) - Clinical Impression Clinical Impression: CHF (congestive heart failure)
--- NOTE | 2018-01-22 14:06 | RAD ---
HISTORY: hyperkalemia COMPARISON: 12/22/2017. FINDINGS: LUNGS: There is severe pulmonary venous congestion. There is bibasilar airspace disease. PLEURA: Moderate right and small left pleural effusions. No pneumothorax. CARDIOVASCULAR: There is mild cardiomegaly. Stable position of left-sided AICD OSSEOUS STRUCTURES: No significant abnormalities. VISUALIZED UPPER ABDOMEN: Normal. OTHER FINDINGS: None. IMPRESSION: Findings are most compatible with congestive heart failure as described above.
[2018-01-22 14:13] LABS: BASO % 0.5 % (0.0-2.0); EOS # 0.1 K/uL (0.0-0.7); EOS % 0.8 % (0.0-4.0); HEMOGLOBIN 10.1 g/dL (11.0-16.0); LYMPH # 1.3 K/uL (1.0-4.3); LYMPH % 20.1 % (20.0-40.0); MEAN CORPUSCULAR HEMOGLOBIN 24.1 pg (27.0-31.0); MEAN CORPUSCULAR HGB CONC 31.1 g/dL (33.0-37.0); MEAN PLATELET VOLUME 8.9 fL (7.2-11.7); MONO # 0.6 K/uL (0.0-0.8); NEUT # 4.6 K/uL (1.8-7.0); NEUT % 69.6 % (50.0-75.0); RBC 4.19 Mil/uL (3.80-5.20); RED CELL DISTRIBUTION WIDTH 18.1 % (11.5-14.5); WHITE BLOOD COUNT 6.5 K/uL (4.8-10.8)
[2018-01-22 14:17] LABS: MEAN CELL VOLUME 77.6 fL (81.0-99.0)
[2018-01-22 14:30] LABS: ALB/GLOB RATIO 1.2 (1.0-2.1); ALBUMIN 3.9 g/dL (3.5-5.0); ALT/SGPT 22 U/L (9-52); AST/SGOT 22 U/L (14-36); BLOOD UREA NITROGEN 31 mg/dL (7-17); GFR AFRICAN-AMERICAN > 60; GFR NON-AFRICAN AMERICAN > 60
[2018-01-22 14:38] LABS: B-TYPE NATRIURETIC PEPTIDE 17700 pg/mL (0-900); CK-MB 1.67 ng/mL (0.0-3.38)
[2018-01-22] MEDS ORDERED: Digoxin 125 mcg (0.125 mg) Tab PO STA (17:11)
[2018-01-22] MEDS: Multiple Vitamins Tab PO SCH (18:05)
[2018-01-22] MEDS: Albuterol-Ipratrop 3 mg / 0.5 (3 ml) UD IH SCH (20:41)
[2018-01-22 21:26] LABS: CK-MB 1.31 ng/mL (0.0-3.38)
--- NOTE | 2018-01-22 22:03 | CP.PCM.CON ---
History of Present Illness - History of Present Illness History of Present Illness: Patient seen and evaluated in ER bed 9 Presented for dyspnea Acute on Chronic systolic CHF Feels better after IV Lasix Denies chest pain Past Patient History - Infectious Disease Hx of Infectious Diseases: None - Past Medical History & Family History Past Medical History?: Yes - Past Social History Smoking Status: Never Smoked - CARDIAC Hx Hypercholesterolemia: Yes Hx Hypertension: Yes Hx Pacemaker: Yes - PULMONARY Hx Chronic Obstructive Pulmonary Disease (COPD): Yes (PER FAMILY) - NEUROLOGICAL Hx Dementia: Yes (PER FAMILY) - HEENT Hx HEENT Problems: No - RENAL Hx Chronic Kidney Disease: No - ENDOCRINE/METABOLIC Hx Diabetes Mellitus Type 2: Yes - HEMATOLOGICAL/ONCOLOGICAL Hx Blood Disorders: Yes Hx Cancer: Yes (BREAST) Other/Comment: LEFT MASTECTOMY - INTEGUMENTARY Hx Dermatological Problems: No - MUSCULOSKELETAL/RHEUMATOLOGICAL Hx Arthritis: Yes - GASTROINTESTINAL Hx Gastrointestinal Disorders: No - GENITOURINARY/GYNECOLOGICAL Hx Genitourinary Disorders: No - PSYCHIATRIC Hx Substance Use: No - SURGICAL HISTORY Hx Surgeries: Yes Hx Section: Yes Hx Mastectomy: Yes (LEFT) Other/Comment: PACEMAKER. AICD - ANESTHESIA Hx Anesthesia: Yes Hx Anesthesia Reactions: No Meds Allergies/Adverse Reactions: Allergies Allergy/AdvReac Type Severity Reaction Status Date / Time No Known Allergies Allergy Verified 01/22/18 13:23 - Medications Medications: Current Medications Albuterol/Ipratropium (Duoneb 3 Mg/0.5 Mg (3 Ml) Ud) 3 ml IH RQID [facility] Last Admin: 01/22/18 20:41 Dose: 3 ml Aspirin (Aspirin Chewable) 81 mg PO DAILY [facility] Last Admin: 01/22/18 18:05 Dose: 81 mg Digoxin (Digoxin) 0.125 mg PO DAILY@1800 [facility] Enalapril Maleate (Vasotec) 2.5 mg PO DAILY [facility] Last Admin: 01/22/18 18:06 Dose: 2.5 mg Furosemide (Lasix) 40 mg IVP DAILY [facility] Insulin Human Regular (Novolin R) 0 unit SC [facility] PRN Reason: Protocol Multivitamins (Hexavitamin) 1 tab PO DAILY [facility] Last Admin: 01/22/18 18:05 Dose: 1 tab Rosuvastatin Calcium (Crestor) [address] [facility] Last Admin: 01/22/18 21:48 Dose: 5 mg Sitagliptin Phosphate (Januvia) 25 mg PO DAILY [facility] Results - Vital Signs Recent Vital Signs: Last Vital Signs Temp 97.6 F 01/22/18 21:40 Pulse 78 01/22/18 21:40 Resp 20 01/22/18 21:40 BP 101/65 01/22/18 21:40 Pulse Ox 98 01/22/18 21:40 - Labs Result Diagrams: 01/22/18 14:05 01/22/18 14:05 Labs: Laboratory Results - last 24 hr 01/22/18 01/22/18 01/22/18 14:05 14:05 18:01 WBC 6.5 RBC 4.19 Hgb 10.1 L Hct 32.5 L MCV 77.6 L D MCH 24.1 L MCHC 31.1 L RDW 18.1 H Plt Count 374 MPV 8.9 Neut % (Auto) 69.6 Lymph % (Auto) 20.1 [place] % (Auto) 9.0 Eos % (Auto) 0.8 Baso % (Auto) 0.5 Neut # (Auto) 4.6 Lymph # (Auto) 1.3 [place] # (Auto) 0.6 Eos # (Auto) 0.1 Baso # (Auto) 0.0 Sodium 138 Potassium 5.0 Chloride 98 Carbon Dioxide 28 Anion Gap 17 BUN 31 H Creatinine 0.8 Est GFR ( Amer) > 60 Est GFR (Non-Af Amer) > 60 Random Glucose 114 H Calcium 9.0 Total Bilirubin 0.9 AST 22 ALT 22 Alkaline Phosphatase 60 Total Creatine Kinase < 20 L CK-MB (Mass) 1.67 Troponin I 0.0190 NT-Pro-B Natriuret Pep 27515 H Total Protein 7.1 Albumin 3.9 Globulin 3.3 Albumin/Globulin Ratio 1.2 Digoxin < 0.4 L 01/22/18 20:51 WBC RBC Hgb Hct MCV MCH MCHC RDW Plt Count MPV Neut % (Auto) Lymph % (Auto) [place] % (Auto) Eos % (Auto) Baso % (Auto) Neut # (Auto) Lymph # (Auto) [place] # (Auto) Eos # (Auto) Baso # (Auto) Sodium Potassium Chloride Carbon Dioxide Anion Gap BUN Creatinine Est GFR ( Amer) Est GFR (Non-Af Amer) Random Glucose Calcium Total Bilirubin AST ALT Alkaline Phosphatase Total Creatine Kinase < 20 L CK-MB (Mass) 1.31 Troponin I 0.0220 NT-Pro-B Natriuret Pep Total Protein Albumin Globulin Albumin/Globulin Ratio Digoxin
[2018-01-22] MEDS: (Novolin R) Insulin Human Regular 100 units/ml vial SC SCH (22:41)
--- NOTE | 2018-01-23 00:37 | CP.PCM.HP ---
History of Present Illness - History of Present Illness History of Present Illness: Patient seen and evaluated in ER bed 9 Presented for dyspnea Acute on Chronic systolic CHF Feels better after IV Lasix Denies chest pain Past Patient History - Infectious Disease Hx of Infectious Diseases: None - Past Medical History & Family History Past Medical History?: Yes - Past Social History Smoking Status: Never Smoked - CARDIAC Hx Hypercholesterolemia: Yes Hx Hypertension: Yes Hx Pacemaker: Yes - PULMONARY Hx Chronic Obstructive Pulmonary Disease (COPD): Yes (PER FAMILY) - NEUROLOGICAL Hx Dementia: Yes (PER FAMILY) - HEENT Hx HEENT Problems: No - RENAL Hx Chronic Kidney Disease: No - ENDOCRINE/METABOLIC Hx Diabetes Mellitus Type 2: Yes - HEMATOLOGICAL/ONCOLOGICAL Hx Blood Disorders: Yes Hx Cancer: Yes (BREAST) Other/Comment: LEFT MASTECTOMY - INTEGUMENTARY Hx Dermatological Problems: No - MUSCULOSKELETAL/RHEUMATOLOGICAL Hx Arthritis: Yes - GASTROINTESTINAL Hx Gastrointestinal Disorders: No - GENITOURINARY/GYNECOLOGICAL Hx Genitourinary Disorders: No - PSYCHIATRIC Hx Substance Use: No - SURGICAL HISTORY Hx Surgeries: Yes Hx Section: Yes Hx Mastectomy: Yes (LEFT) Other/Comment: PACEMAKER. AICD - ANESTHESIA Hx Anesthesia: Yes Hx Anesthesia Reactions: No Meds Allergies/Adverse Reactions: Allergies Allergy/AdvReac Type Severity Reaction Status Date / Time No Known Allergies Allergy Verified 01/22/18 13:23 Results - Vital Signs Recent Vital Signs: Last Vital Signs Temp 97.6 F 01/22/18 21:40 Pulse 78 01/22/18 21:40 Resp 20 01/22/18 21:40 BP 101/65 01/22/18 21:40 Pulse Ox 98 01/22/18 21:40 - Labs Result Diagrams: 01/22/18 14:05 01/22/18 14:05 Labs: Laboratory Results - last 24 hr 01/22/18 01/22/18 01/22/18 14:05 14:05 18:01 WBC 6.5 RBC 4.19 Hgb 10.1 L Hct 32.5 L MCV 77.6 L D MCH 24.1 L MCHC 31.1 L RDW 18.1 H Plt Count 374 MPV 8.9 Neut % (Auto) 69.6 Lymph % (Auto) 20.1 [place] % (Auto) 9.0 Eos % (Auto) 0.8 Baso % (Auto) 0.5 Neut # (Auto) 4.6 Lymph # (Auto) 1.3 [place] # (Auto) 0.6 Eos # (Auto) 0.1 Baso # (Auto) 0.0 Sodium 138 Potassium 5.0 Chloride 98 Carbon Dioxide 28 Anion Gap 17 BUN 31 H Creatinine 0.8 Est GFR ( Amer) > 60 Est GFR (Non-Af Amer) > 60 POC Glucose (mg/dL) Random Glucose 114 H Calcium 9.0 Total Bilirubin 0.9 AST 22 ALT 22 Alkaline Phosphatase 60 Total Creatine Kinase < 20 L CK-MB (Mass) 1.67 Troponin I 0.0190 NT-Pro-B Natriuret Pep 33874 H Total Protein 7.1 Albumin 3.9 Globulin 3.3 Albumin/Globulin Ratio 1.2 Digoxin < 0.4 L 01/22/18 01/22/18 01/22/18 20:51 22:24 22:40 WBC RBC Hgb Hct MCV MCH MCHC RDW Plt Count MPV Neut % (Auto) Lymph % (Auto) [place] % (Auto) Eos % (Auto) Baso % (Auto) Neut # (Auto) Lymph # (Auto) [place] # (Auto) Eos # (Auto) Baso # (Auto) Sodium Potassium Chloride Carbon Dioxide Anion Gap BUN Creatinine Est GFR ( Amer) Est GFR (Non-Af Amer) POC Glucose (mg/dL) 214 H Random Glucose Calcium Total Bilirubin AST ALT Alkaline Phosphatase Total Creatine Kinase < 20 L CK-MB (Mass) 1.31 Troponin I 0.0220 0.0210 NT-Pro-B Natriuret Pep Total Protein Albumin Globulin Albumin/Globulin Ratio Digoxin
[2018-01-23] MEDS: (Novolin R) Insulin Human Regular 100 units/ml vial SC SCH ×4 (07:42→23:04)
[2018-01-23] MEDS: Albuterol-Ipratrop 3 mg / 0.5 (3 ml) UD IH SCH ×4 (08:06→19:49)
[2018-01-23] MEDS: Enoxaparin 30 mg Syringe SC SCH (09:29)
[2018-01-23] MEDS: Multiple Vitamins Tab PO SCH (09:29)
[2018-01-23] MEDS ORDERED: Digoxin 125 mcg (0.125 mg) Tab PO SCH (18:00)
[2018-01-23 18:18] VITALS: PULSE 84
[2018-01-23 22:18] LABS: SQUAMOUS EPITHIAL 2 /hpf (0-5); URINE BACTERIA FEW (<OCC); URINE BILIRUBIN NEGATIVE (NEGATIVE); URINE BLOOD NEGATIVE (NEGATIVE); URINE CLARITY Hazy (Clear); URINE COLOR Yellow (YELLOW); URINE GLUCOSE (UA) NORMAL (Normal); URINE LEUKOCYTE ESTERASE 1+ Leu/uL (Negative); URINE PROTEIN NEGATIVE (NEGATIVE)
--- NOTE | 2018-01-24 06:08 | CP.PCM.PN ---
Subjective - Date & Time of Evaluation Date of Evaluation: 01/23/18 Time of Evaluation: 20:00 - Subjective Subjective: Pt seen and examined at bedside Objective - Vital Signs/Intake and Output Vital Signs (last 24 hours): Temp Pulse Resp BP Pulse Ox 98.0 F 79 21 107/68 98 01/23/18 23:26 01/23/18 23:30 01/23/18 23:26 01/23/18 23:26 01/23/18 23:26 Intake and Output: 01/23/18 01/24/18 18:59 06:59 Intake Total 320 Balance 320 - Medications Medications: Current Medications Albuterol/Ipratropium (Duoneb 3 Mg/0.5 Mg (3 Ml) Ud) 3 ml IH RQID [facility] Last Admin: 01/23/18 19:49 Dose: Not Given Aspirin (Aspirin Chewable) 81 mg PO DAILY [facility] Last Admin: 01/23/18 09:29 Dose: 81 mg Digoxin (Digoxin) 0.125 mg PO DAILY@1800 [facility] Last Admin: 01/23/18 18:17 Dose: 0.125 mg Enalapril Maleate (Vasotec) 2.5 mg PO DAILY [facility] Last Admin: 01/23/18 09:29 Dose: Not Given Enoxaparin Sodium (Lovenox) 30 mg SC DAILY [facility] Last Admin: 01/23/18 09:29 Dose: 30 mg Furosemide (Lasix) 40 mg IVP DAILY [facility] Last Admin: 01/23/18 09:29 Dose: Not Given Insulin Human Regular (Novolin R) 0 unit SC [facility] PRN Reason: Protocol Last Admin: 01/23/18 23:04 Dose: Not Given Multivitamins (Hexavitamin) 1 tab PO DAILY [facility] Last Admin: 01/23/18 09:29 Dose: 1 tab Rosuvastatin Calcium (Crestor) 5 mg PO HS [facility] Last Admin: 01/23/18 23:11 Dose: 5 mg Sitagliptin Phosphate (Januvia) 25 mg PO DAILY [facility] Last Admin: 01/23/18 09:29 Dose: 25 mg - Labs Labs: 01/22/18 14:05 01/22/18 14:05
[2018-01-24 07:29] LABS: BLOOD UREA NITROGEN 28 mg/dL (7-17); GFR AFRICAN-AMERICAN > 60; GFR NON-AFRICAN AMERICAN > 60
[2018-01-24 07:43] LABS: BASO % 0.6 % (0.0-2.0); EOS # 0.1 K/uL (0.0-0.7); EOS % 1.8 % (0.0-4.0); HEMOGLOBIN 10.1 g/dL (11.0-16.0); LYMPH # 1.8 K/uL (1.0-4.3); LYMPH % 24.4 % (20.0-40.0); MEAN CELL VOLUME 76.6 fL (81.0-99.0); MEAN CORPUSCULAR HGB CONC 32.6 g/dL (33.0-37.0); MEAN PLATELET VOLUME 9.1 fL (7.2-11.7); MONO # 0.6 K/uL (0.0-0.8); MONO % 8.6 % (0.0-10.0); NEUT # 4.7 K/uL (1.8-7.0); NEUT % 64.6 % (50.0-75.0); RBC 4.03 Mil/uL (3.80-5.20); RED CELL DISTRIBUTION WIDTH 18.5 % (11.5-14.5); WHITE BLOOD COUNT 7.2 K/uL (4.8-10.8)
[2018-01-24] MEDS: Albuterol-Ipratrop 3 mg / 0.5 (3 ml) UD IH SCH ×2 (07:55→11:10)
[2018-01-24 08:24] VITALS: TEMP 97.5
[2018-01-24] MEDS: (Novolin R) Insulin Human Regular 100 units/ml vial SC SCH ×2 (08:30→12:33)
[2018-01-24] MEDS ORDERED: Metoprolol Succinate 12.5 mg XL Tab PO ONE (10:04)
[2018-01-24] MEDS: Multiple Vitamins Tab PO SCH (10:55)
[2018-01-24] MEDS: Enoxaparin 30 mg Syringe SC SCH (10:56)
--- NOTE | 2018-01-24 12:27 | CARD ---
APPROVED REPORT EKG Measurement Heart [id number] [place] 148P25 [id number] <Conclusion> Normal sinus rhythm Possible Left atrial enlargement Left axis deviation Low voltage QRS Cannot rule out Anteroseptal infarct, age undetermined Abnormal ECG
--- NOTE | 2018-01-24 12:47 | PCM.HF ---
Heart Failure Core Measure - Heart Failure Ejection Fraction: Less Than 40 % JEANNE Inhibitor Prescribed: Yes Beta-Janee Prescribed: Metoprolol Succinate Angiotensin II Receptor Janee Prescribed: No Contraindication/Reason for not providing: on jeanne AnticoagulationTherapy for Atrial Fibrillation/Atrialflutter: No Contraindication/Reason for not providing: NO HX OF AFIB Aldosterone Antagonist Prescribed: No Contraindication/Reason for not providing: DISCONTINUED 2 ND TO HYPERKALEMAI Hydralazine Nitrate Prescribed: No Contraindication/Reason for not providing: BP RUNNING LOW / 100,S Implantable Cardioverter Defibrillator Therapy: No Contraindication/Reason for not providing: PT HAS aicd Cardiac Resynchronization Therapy Prescribed: No Contraindication/Reason for not providing: AICD - Follow up Will be discharged to: Home Follow Up Date (must be within 7 days from discharge): 01/28/18 Follow Up Time: 09:00
--- NOTE | 2018-01-24 12:47 | CP.PCM.PN ---
Subjective - Date & Time of Evaluation Date of Evaluation: 01/24/18 Time of Evaluation: 11:45 - Subjective Subjective: Patient seen today, denies any chest pain ,sob, palpitations, dizziness, oob ambulating to BR without sob No overnight events reported by RN Objective - Vital Signs/Intake and Output Vital Signs (last 24 hours): Temp Pulse Resp BP Pulse Ox 97.5 F L 81 20 112/70 100 01/24/18 07:55 01/24/18 10:53 01/24/18 07:55 01/24/18 10:55 01/24/18 07:55 Intake and Output: 01/24/18 01/24/18 06:59 18:59 Intake Total 320 Balance 320 - Medications Medications: Current Medications Albuterol/Ipratropium (Duoneb 3 Mg/0.5 Mg (3 Ml) Ud) 3 ml IH RQID [facility] Last Admin: 01/24/18 11:10 Dose: Not Given Aspirin (Aspirin Chewable) 81 mg PO DAILY [facility] Last Admin: 01/24/18 10:55 Dose: 81 mg Digoxin (Digoxin) 0.125 mg PO DAILY@1800 [facility] Last Admin: 01/23/18 18:17 Dose: 0.125 mg Enalapril Maleate (Vasotec) 2.5 mg PO DAILY [facility] Last Admin: 01/24/18 10:55 Dose: 2.5 mg Enoxaparin Sodium (Lovenox) 30 mg SC DAILY [facility] Last Admin: 01/24/18 10:56 Dose: 30 mg Furosemide (Lasix) 40 mg IVP DAILY [facility] Last Admin: 01/24/18 10:55 Dose: 40 mg Insulin Human Regular (Novolin R) 0 unit SC [facility] PRN Reason: Protocol Last Admin: 01/24/18 12:33 Dose: Not Given Metoprolol Succinate (Toprol Xl) 12.5 mg PO DAILY [facility] Multivitamins (Hexavitamin) 1 tab PO DAILY [facility] Last Admin: 01/24/18 10:55 Dose: 1 tab Rosuvastatin Calcium (Crestor) 5 mg PO HS [facility] Last Admin: 01/23/18 23:11 Dose: 5 mg Sitagliptin Phosphate (Januvia) 25 mg PO DAILY [facility] Last Admin: 01/24/18 10:55 Dose: 25 mg - Labs Labs: 01/24/18 07:11 01/24/18 07:11 - Constitutional Appears: Well, No Acute Distress - Respiratory Exam Respiratory Exam: Decreased Breath Sounds, NORMAL BREATHING PATTERN - Cardiovascular Exam Cardiovascular Exam: REGULAR RHYTHM, +S1, +S2 - Neurological Exam Neurological Exam: Alert, Awake Assessment and Plan - Assessment and Plan (Free Text) Assessment: A/P 78 y/o F c PMHx CHF, COPD on home oxygen , DM, admitted with hyperkalemia and CHF k- normal - 4.8 Patient clinically improved with diuresis seen by Dr. Bonilla today, cleared for discharge home today and f/u with Dr. Bonilla office in 1 week discharge plan discussed with patient who understands and agrees with plan VNA service arranged by CM for home PT and management of medication at home
[2018-01-24 14:37] VITALS: BP 103/44; PULSE 77; RESP 17; O2SAT 97
--- NOTE | 2018-01-24 21:53 | CP.PCM.DIS ---
Provider - Provider Date of Admission: 01/22/18 14:48 Attending physician: Celso Bonilla MD Time Spent in preparation of Discharge (in minutes): 45 Hospital Course - Lab Results Lab Results: Most Recent Lab Values WBC 7.2 K/uL (4.8-10.8) 01/24/18 07:11 RBC 4.03 Mil/uL (3.80-5.20) 01/24/18 07:11 Hgb 10.1 g/dL (11.0-16.0) L 01/24/18 07:11 Hct 30.8 % (34.0-47.0) L 01/24/18 07:11 MCV 76.6 fL (81.0-99.0) L 01/24/18 07:11 MCH 25.0 pg (27.0-31.0) L 01/24/18 07:11 MCHC 32.6 g/dL (33.0-37.0) L 01/24/18 07:11 RDW 18.5 % (11.5-14.5) H 01/24/18 07:11 Plt Count 376 K/uL (130-400) 01/24/18 07:11 MPV 9.1 fL (7.2-11.7) 01/24/18 07:11 Neut % (Auto) 64.6 % (50.0-75.0) 01/24/18 07:11 Lymph % (Auto) 24.4 % (20.0-40.0) 01/24/18 07:11 [place] % (Auto) 8.6 % (0.0-10.0) 01/24/18 07:11 Eos % (Auto) 1.8 % (0.0-4.0) 01/24/18 07:11 Baso % (Auto) 0.6 % (0.0-2.0) 01/24/18 07:11 Neut # (Auto) 4.7 K/uL (1.8-7.0) 01/24/18 07:11 Lymph # (Auto) 1.8 K/uL (1.0-4.3) 01/24/18 07:11 [place] # (Auto) 0.6 K/uL (0.0-0.8) 01/24/18 07:11 Eos # (Auto) 0.1 K/uL (0.0-0.7) 01/24/18 07:11 Baso # (Auto) 0.0 K/uL (0.0-0.2) 01/24/18 07:11 Sodium 135 mmol/L (132-148) 01/24/18 07:11 Potassium 4.8 mmol/L (3.6-5.2) 01/24/18 07:11 Chloride 96 mmol/L (98-107) L 01/24/18 07:11 Carbon Dioxide 29 mmol/L (22-30) 01/24/18 07:11 Anion Gap 15 (10-20) 01/24/18 07:11 BUN 28 mg/dL (7-17) H 01/24/18 07:11 Creatinine 0.8 mg/dL (0.7-1.2) 01/24/18 07:11 Est GFR ( Amer) > 60 01/24/18 07:11 Est GFR (Non-Af Amer) > 60 01/24/18 07:11 POC Glucose (mg/dL) 118 mg/dL (65-110) H 01/24/18 12:00 Random Glucose 93 mg/dL (65-105) 01/24/18 07:11 Calcium 9.0 mg/dl (8.6-10.4) 01/24/18 07:11 Total Bilirubin 0.9 mg/dL (0.2-1.3) 01/22/18 14:05 AST 22 U/L (14-36) 01/22/18 14:05 ALT 22 U/L (9-52) 01/22/18 14:05 Alkaline Phosphatase 60 U/L (38-126) 01/22/18 14:05 Total Creatine Kinase < 20 U/L (30-135) L 01/22/18 20:51 CK-MB (Mass) 1.31 ng/mL (0.0-3.38) 01/22/18 20:51 Troponin I 0.0270 ng/mL (0.00-0.120) 01/23/18 07:24 NT-Pro-B Natriuret Pep 19206 pg/mL (0-900) H 01/22/18 14:05 Total Protein 7.1 g/dL (6.3-8.3) 01/22/18 14:05 Albumin 3.9 g/dL (3.5-5.0) 01/22/18 14:05 Globulin 3.3 gm/dL (2.2-3.9) 01/22/18 14:05 Albumin/Globulin Ratio 1.2 (1.0-2.1) 01/22/18 14:05 Urine Color Yellow (YELLOW) 01/23/18 21:59 Urine Clarity Hazy (Clear) 01/23/18 21:59 Urine pH 5.0 (5.0-8.0) 01/23/18 21:59 Ur Specific [place] 1.012 (1.003-1.030) 01/23/18 21:59 Urine Protein Negative mg/dL (NEGATIVE) 01/23/18 21:59 Urine Glucose (UA) Normal mg/dL (Normal) 01/23/18 21:59 Urine Ketones Negative mg/dL (NEGATIVE) 01/23/18 21:59 Urine Blood Negative (NEGATIVE) 01/23/18 21:59 Urine Nitrate Negative (NEGATIVE) 01/23/18 21:59 Urine Bilirubin Negative (NEGATIVE) 01/23/18 21:59 Urine Urobilinogen 2.0 mg/dL (0.2-1.0) H 01/23/18 21:59 Ur Leukocyte Esterase 1+ [place]/uL (Negative) H 01/23/18 21:59 Urine WBC (Auto) 5 /hpf (0-5) 01/23/18 21:59 Urine RBC (Auto) < 1 /hpf (0-3) 01/23/18 21:59 Ur Squamous Epith Cells 2 /hpf (0-5) 01/23/18 21:59 Urine Bacteria Few (<OCC) H 01/23/18 21:59 Digoxin < 0.4 ng/mL (0.8-2.0) L 01/22/18 18:01 - Hospital Course Hospital Course: A/P 78 y/o F c PMHx CHF, COPD on home oxygen , DM, admitted with hyperkalemia and CHF k- normal - 4.8 Patient clinically improved with diuresis seen & examined by me today, cleared for discharge home today and f/u with me in office in 1 week discharge plan discussed with patient who understands and agrees with plan VNA service arranged by CM for home PT and management of medication at home Discharge Exam - Eye Exam Eye Exam: EOMI, Normal appearance, PERRL Pupil Exam: NORMAL ACCOMODATION, PERRL - ENT Exam ENT Exam: Mucous Membranes Moist - Respiratory Exam Respiratory Exam: Decreased Breath Sounds, Rales, Wheezes - Cardiovascular Exam Cardiovascular Exam: REGULAR RHYTHM, +S1, +S2 - GI/Abdominal Exam GI & Abdominal Exam: Normal Bowel Sounds - Rectal Exam Rectal Exam: Deferred Discharge Plan - Discharge Medications Prescriptions: Rosuvastatin Calcium [Crestor] 5 mg PO HS #30 tab Albuterol/Ipratropium [Duoneb 3 mg/0.5 mg (3 ml) UD] 3 ml IH QID 30 Days neb Furosemide [Lasix] 40 mg PO DAILY #60 tab Metoprolol Succinate XL [Toprol XL] 12.5 mg PO DAILY #30 tab Enalapril Maleate [Vasotec] 2.5 mg PO DAILY #30 tab - Follow Up Plan Condition: FAIR Disposition: HOME/ ROUTINE Instructions: Heart Healthy Diet, Heart Failure, Adult (DC) Additional Instructions: Please follow up with Dr. Bonilla office in 1 week Please continue medication as per med. rec. 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
[2018-01-25] MEDS ORDERED: Metoprolol Succinate 12.5 mg XL Tab PO SCH (10:00)
== END 2018-01-24 15:56 | disposition home or self-care (01) ==
LOC: C.ER 13:13 → C.9E 14:48 → C.6T 20:22
PROVIDERS: ADMIT Internal Medicine; ATTEND Internal Medicine
DX: I11.0 Hypertensive heart disease with heart failure (principal); I50.23 Acute on chronic systolic (congestive) heart failure; J44.9 Chronic obstructive pulmonary disease, unspecified; Z87.891 Personal history of nicotine dependence; Z90.12 Acquired absence of left breast and nipple; Z95.0 Presence of cardiac pacemaker; E11.9 Type 2 diabetes mellitus without complications; E78.00 Pure hypercholesterolemia, unspecified; E87.5 Hyperkalemia; F03.90 Unspecified dementia, unspecified severity, without behavioral disturbance, psychotic disturbance, mood disturbance, and anxiety
CPT/HCPCS: 36415; 71045; 80048; 80053; 80162; 81001; 82550; 82553; 82948; 83880; 84484; 85025; 87086; 93005; 94640; 96374; 97162; 97530; 99285; G0378; G8978; G8979; J1650; J1940